=== PATIENT | female | born 1940 | race Caucasian/White ===

== ENCOUNTER → 2018-05-17 14:26 | Outpatient (CLI) | payer MEDICARE, SELFPAY ==
--- NOTE | 2018-05-17 14:38 | VDLE_ITS ---
Reason For Study: LLE edema RIGHT LEFT CFV is compressible, spontaneous, phasic, GSV is normal. competent and demonstrates normal CFV is compressible, spontaneous, phasic, augmentation. competent, and demonstrates normal Procedure augmentation. Exam performed in department. FV is compressible, spontaneous, phasic, The exam was diagnostic. competent and demonstrates normal The study was technically difficult. augmentation. Unable to position LLE optimally due to hip POP V is compressible, spontaneous, phasic, surgery. competent and demonstrates normal A preliminary report was called and/or faxed augmentation. to DR. Mariaa Kidd @ [phone] @ 3:05 T/P Trunk is compressible. pm. PTV is compressible. LT PerV is compressible. Interpretation Summary Deep veins of the left lower extremity are patent and compressible segmentally. There is no evidence of left lower extremity deep vein thrombosis. Valvular competence appears intact within the proximal deep venous system on the left . The left greater saphenous vein appears patent and compressible segmentally. Ordering Physician: Mariaa Kidd Referring Physician: Mariaa Kidd Performed By: Pricila Cardenas, RDNEHA, RVT
== END ==
DX: R60.0 Localized edema (principal); E78.5 Hyperlipidemia, unspecified; M81.0 Age-related osteoporosis without current pathological fracture; D64.9 Anemia, unspecified; R41.3 Other amnesia
CPT/HCPCS: 93971

== ENCOUNTER → 2018-05-25 | Outpatient (CLI) | payer MEDICARE, SELFPAY ==
[2018-05-25 09:34] LABS: Absolute Lymphocyte Count 1.05 X10^3/ul (0.83-4.51); Absolute Neutrophil Count 3.1 X10^3/uL (2.0-7.7); Basophil# 0.07 X10^3/uL; Basophil% 1.4 % (0-1); Eosinophil# 0.18 X10^3/uL; Eosinophils% 3.7 % (0-5); Hematocrit 36.4 % (37-47); Lymphocyte # 1.05 X10^3/ul (4.0); Lymphocyte % 21.6 % (19-41); Mean Corp Hgb Conc 30.2 g/gl (32-36); Mean Corpuscular Volume 92.6 fL (81-99); Mean Platelet Vol. 8.4 fl (6.2-12.0); Monocyte# 0.43 X10^3/uL; Monocyte% 8.8 % (0-10); Neutrophil # 3.13 X10^3/uL (2.7-7.7); Neutrophil % 64.5 % (47-70); Platelet Count 354 K/mm3 (150-450); RBC Distribution Width CV 18.7 % (11.6-14.6); RBC Distribution Width SD 63.5 fl (35.1-43.9); Red Blood Count 3.93 M/mm3 (4.2-5.4); White Blood Count 4.9 K/mm3 (4.4-11.0)
[2018-05-25 09:35] LABS: POSITIVE COUNT NO; POSITIVE DIFFERENTIAL NO; POSITIVE MORPHOLOGY NO
[2018-05-25 10:31] LABS: ALB/GLOB Ratio 0.9 RATIO (0.9-2.4); AST(SGOT) 18 U/L (15-37); Alanine Aminotransfer ALT/SGPT 20 U/L (13-56); Albumin, Serum 3.4 g/dL (3.2-5.0); Alkaline Phosphatase 141 U/L (45-117); Anion Gap 7 (5-15); BUN 8 mg/dL (7-18); BUN/Creat Ratio 12.9 RATIO (10-20); Calcium,Total 8.5 mg/dL (8.5-10.1); Chloride 105 mmol/L (98-107); Cholesterol 117 mg/dL (200); Creatinine, Serum 0.62 mg/dL (0.55-1.02); EST Glomerular Filtration Rate 100 mL/min (>60); Est Glom Filt Rate - Afr Amer 120 mL/min (>60); Globulin 3.6 g/dL (2.2-4.2); Glucose 85 mg/dL (74-106); High Density Lipoprotein 78 mg/dL; Potassium 3.3 mmol/L (3.5-5.1); Sodium Level 142 mmol/L (136-145); Thyroid Stim Hormone (TSH) 0.93 uIU/mL (0.358-3.74); Triglycerides 78 mg/dL; Very Low Density Lipoprotein 16 mg/dL (5-40)
[2018-05-27 09:43] LABS: Vitamin B12 418 pg/mL (211-911); Vitamin D,25 Hydroxy 28.2 ng/mL (29.95-100.01)
== END | disposition home or self-care (01) ==
LOC: LAB 09:08
DX: E78.5 Hyperlipidemia, unspecified (principal); D64.9 Anemia, unspecified; R41.3 Other amnesia; M81.0 Age-related osteoporosis without current pathological fracture
CPT/HCPCS: 36415; 80053; 80061; 82306; 82607; 82746; 84443; 85025

== ENCOUNTER → 2018-06-06 16:54 | Outpatient (CLI) | payer MEDICARE, SELFPAY | PROVIDERS: Family Provider Family Medicine; PCP Family Medicine; Visit Provider Urology | DX: R82.99 Other abnormal findings in urine (principal) | CPT/HCPCS: 87077; 87086; 87088; 87186 ==

== ENCOUNTER → 2018-08-26 17:01 | Outpatient (CLI) | payer MEDICARE, MEDICAID, SELFPAY ==
[2018-08-26 18:07] LABS: Anion Gap 6 (5-15); BUN 19 mg/dL (7-18); BUN/Creat Ratio 26.6 RATIO (10-20); Chloride 100 mmol/L (98-107); Creatinine, Serum 0.71 mg/dL (0.55-1.02); EST Glomerular Filtration Rate 85 mL/min (>60); Est Glom Filt Rate - Afr Amer 102 mL/min (>60); Glucose 83 mg/dL (74-106); Potassium 3.7 mmol/L (3.5-5.1); Sodium Level 136 mmol/L (136-145)
== END ==
PROVIDERS: Family Provider Family Medicine
DX: I25.10 Atherosclerotic heart disease of native coronary artery without angina pectoris (principal); E78.49 Other hyperlipidemia; I10 Essential (primary) hypertension
CPT/HCPCS: 36415; 80048

== ENCOUNTER → 2020-01-16 15:48 | Outpatient (CLI) | payer OTHER, SELFPAY ==
--- NOTE | 2020-01-16 15:55 | RAD_ITS ---
STUDY: X-RAY - ABDOMEN/PELVIS REASON FOR EXAM: Female, 79 years old. Abdominal pain and distention TECHNIQUE: 3P films COMPARISON: None. FINDINGS: Normal visualized lung bases. There is an unremarkable bowel gas pattern. There is no demonstrated free abdominal air. The visualized liver, spleen and kidneys are grossly normal in size and morphology. There are calcifications of uncertain significance projecting over the right and left sacrum Levoscoliosis. RAD/Abd Inc Decub and/or Erect IMPRESSION: No acute findings Electronically Signed: Santy Barnes MD at 11:25 EST , Service support ,
== END ==
LOC: MTLAB 15:54 → MTRAD 16:23
PROVIDERS: Referring Provider Internal Medicine Gastroenterology; Visit Provider Internal Medicine Gastroenterology
DX: K59.00 Constipation, unspecified (principal); R19.7 Diarrhea, unspecified
CPT/HCPCS: 74019

== ENCOUNTER → 2023-03-14 | Outpatient (REF) | payer OTHER, SELFPAY ==
[2023-03-14 08:22] LABS: Vitamin B12 224 pg/mL (211-911); Vitamin D,25 Hydroxy 42.9 ng/mL
[2023-03-14 08:27] LABS: Anion Gap 2 (5-15); BUN 16 mg/dL (7-18); BUN/Creat Ratio 23.9 RATIO (10-20); Calcium,Total 9.2 mg/dL (8.5-10.1); Chloride 107 mmol/L (98-107); Cholesterol 120 mg/dL (200); Creatinine, Serum 0.67 mg/dL (0.55-1.02); EST Glomerular Filtration Rate 90 mL/min (>60); Est Glom Filt Rate - Afr Amer 109 mL/min (>60); Glucose 87 mg/dL (74-106); High Density Lipoprotein 63 mg/dL; Potassium 3.5 mmol/L (3.5-5.1); Sodium Level 139 mmol/L (136-145); Thyroid Stim Hormone (TSH) 1.29 uIU/mL (0.358-3.74); Triglycerides 96 mg/dL; Very Low Density Lipoprotein 19 mg/dL (5-40)
[2023-03-14 10:29] LABS: Absolute Lymphocyte Count 1.56 X10^3/uL (0.83-4.51); Absolute Neutrophil Count 5.2 X10^3/uL (2.0-7.7); Basophil# 0.05 X10^3/uL; Basophil% 0.6 % (0-1); Eosinophil# 0.28 X10^3/uL; Eosinophils% 3.6 % (0-5); Hematocrit 39.9 % (37-47); Hemoglobin 12.5 g/dL (12.0-15.0); Lymphocyte # 1.56 X10^3/ul (0.83-4.51); Lymphocyte % 19.9 % (19-41); Mean Corp Hgb Conc 31.3 g/dL (32-36); Mean Corpuscular Hgb 29.3 pg (27.0-32.0); Mean Corpuscular Volume 93.7 fL (81-99); Mean Platelet Vol. 9.8 fl (6.2-12.0); Monocyte# 0.73 X10^3/uL; Monocyte% 9.3 % (0-10); NRBC Flagged by Analyzer 0 % (0-5); Neutrophil % 66.2 % (47-70); Platelet Count 237 K/mm3 (150-450); RBC Distribution Width CV 13.7 % (11.6-14.6); Red Blood Count 4.26 M/mm3 (4.2-5.4); White Blood Count 7.9 K/mm3 (4.4-11.0)
== END ==
LOC: OLS.SWAL 05:00
PROVIDERS: Visit Provider Internal Medicine
DX: E55.9 Vitamin D deficiency, unspecified (principal); E78.5 Hyperlipidemia, unspecified; I10 Essential (primary) hypertension; F32.A Depression, unspecified
CPT/HCPCS: 36415; 80048; 80061; 82306; 82607; 84443; 85025

== ENCOUNTER → 2023-03-19 | Outpatient (REF) | payer OTHER, SELFPAY ==
[2023-03-19 09:54] LABS: BNP,B-Type NATRIURETIC PEPTIDE 192.7 pg/mL (0-100)
== END ==
LOC: OLS.SWAL 04:00
PROVIDERS: Referring Provider Internal Medicine; Visit Provider Internal Medicine
DX: I10 Essential (primary) hypertension (principal); E78.5 Hyperlipidemia, unspecified
CPT/HCPCS: 36415; 83880

== ENCOUNTER → 2023-10-08 | Outpatient (REF) | payer OTHER, SELFPAY ==
[2023-10-08 08:16] LABS: Absolute Lymphocyte Count 1.87 X10^3/uL (0.83-4.51); Absolute Neutrophil Count 3.8 X10^3/uL (2.0-7.7); Basophil% 1.4 % (0-1); Eosinophil# 0.35 X10^3/uL; Hematocrit 38.1 % (37-47); Hemoglobin 11.7 g/dL (12.0-15.0); Lymphocyte # 1.87 X10^3/ul (0.83-4.51); Lymphocyte % 26.9 % (19-41); Mean Corp Hgb Conc 30.7 g/dL (32-36); Mean Corpuscular Volume 91.1 fL (81-99); Mean Platelet Vol. 9.6 fl (6.2-12.0); Monocyte# 0.76 X10^3/uL; Monocyte% 10.9 % (0-10); NRBC Flagged by Analyzer 0 % (0-5); Neutrophil # 3.83 X10^3/uL (2.7-7.7); Neutrophil % 55.2 % (47-70); Platelet Count 245 K/mm3 (150-450); RBC Distribution Width CV 14.4 % (11.6-14.6); RBC Distribution Width SD 48.3 fl (35.1-43.9); Red Blood Count 4.18 M/mm3 (4.2-5.4)
[2023-10-08 08:52] LABS: AST(SGOT) 15 U/L (15-37); Alanine Aminotransfer ALT/SGPT 19 U/L (13-56); Albumin, Serum 2.9 g/dL (3.2-5.0); Alkaline Phosphatase 93 U/L (45-117); Anion Gap 8 (5-15); BUN 15 mg/dL (7-18); BUN/Creat Ratio 23.5 RATIO (10-20); Calcium,Total 8.7 mg/dL (8.5-10.1); Chloride 104 mmol/L (98-107); Cholesterol 118 mg/dL (200); Creatinine, Serum 0.64 mg/dL (0.55-1.02); EST Glomerular Filtration Rate 95 mL/min (>60); Est Glom Filt Rate - Afr Amer 115 mL/min (>60); Glucose 89 mg/dL (74-106); High Density Lipoprotein 67 mg/dL; Potassium 3.4 mmol/L (3.5-5.1); Protein, Total 5.9 g/dL (6.4-8.2); Sodium Level 141 mmol/L (136-145); Thyroid Stim Hormone (TSH) 0.85 uIU/mL (0.358-3.74); Triglycerides 58 mg/dL; Very Low Density Lipoprotein 12 mg/dL (5-40); Vitamin D,25 Hydroxy 39.2 ng/mL
== END ==
LOC: OLS.SWAL 04:00
PROVIDERS: Visit Provider Internal Medicine
DX: I10 Essential (primary) hypertension (principal); R60.9 Edema, unspecified
CPT/HCPCS: 36415; 80053; 80061; 82306; 83735; 84443; 85025

== ENCOUNTER → 2023-10-25 | Outpatient (REF) | payer MEDICARE, MEDICAID, SELFPAY ==
[2023-10-25 08:42] LABS: Anion Gap 5 (5-15); BUN 15 mg/dL (7-18); BUN/Creat Ratio 23.9 RATIO (10-20); Calcium,Total 8.5 mg/dL (8.5-10.1); Chloride 107 mmol/L (98-107); Creatinine, Serum 0.63 mg/dL (0.55-1.02); EST Glomerular Filtration Rate 97 mL/min (>60); Est Glom Filt Rate - Afr Amer 117 mL/min (>60); Glucose 88 mg/dL (74-106); Magnesium 2.1 mg/dL (1.6-2.6); Potassium 3.7 mmol/L (3.5-5.1); Sodium Level 142 mmol/L (136-145)
== END ==
LOC: OLS.SWAL 05:00
PROVIDERS: Visit Provider Internal Medicine
DX: I10 Essential (primary) hypertension (principal)
CPT/HCPCS: 36415; 80048; 83735

== ENCOUNTER → 2023-11-08 | Outpatient (REF) | payer MEDICARE, MEDICAID, SELFPAY ==
[2023-11-08 08:41] LABS: Absolute Lymphocyte Count 2.09 X10^3/uL (0.83-4.51); Absolute Neutrophil Count 4.8 X10^3/uL (2.0-7.7); Basophil# 0.11 X10^3/uL; Basophil% 1.4 % (0-1); Eosinophil# 0.39 X10^3/uL; Eosinophils% 4.8 % (0-5); Hematocrit 42.4 % (37-47); Hemoglobin 13.3 g/dL (12.0-15.0); Lymphocyte # 2.09 X10^3/ul (0.83-4.51); Lymphocyte % 25.7 % (19-41); Mean Corp Hgb Conc 31.4 g/dL (32-36); Mean Corpuscular Hgb 28.7 pg (27.0-32.0); Mean Corpuscular Volume 91.4 fL (81-99); Mean Platelet Vol. 9.5 fl (6.2-12.0); Monocyte# 0.75 X10^3/uL; Monocyte% 9.2 % (0-10); NRBC Flagged by Analyzer 0 % (0-5); Neutrophil # 4.75 X10^3/uL (2.7-7.7); Neutrophil % 58.4 % (47-70); Platelet Count 291 K/mm3 (150-450); RBC Distribution Width CV 14.6 % (11.6-14.6); RBC Distribution Width SD 48.9 fl (35.1-43.9); Red Blood Count 4.64 M/mm3 (4.2-5.4); White Blood Count 8.1 K/mm3 (4.4-11.0)
[2023-11-08 08:58] LABS: Anion Gap 7 (5-15); BUN 16 mg/dL (7-18); BUN/Creat Ratio 22.3 RATIO (10-20); Calcium,Total 9.4 mg/dL (8.5-10.1); Chloride 104 mmol/L (98-107); Creatinine, Serum 0.72 mg/dL (0.55-1.02); EST Glomerular Filtration Rate 83 mL/min (>60); Est Glom Filt Rate - Afr Amer 101 mL/min (>60); Glucose 91 mg/dL (74-106); Potassium 3.7 mmol/L (3.5-5.1); Sodium Level 140 mmol/L (136-145)
== END ==
LOC: OLS.SWAL 05:00
PROVIDERS: Visit Provider Internal Medicine
DX: I10 Essential (primary) hypertension (principal); I25.10 Atherosclerotic heart disease of native coronary artery without angina pectoris
CPT/HCPCS: 36415; 80048; 85025

== ENCOUNTER 2024-01-12 12:06 | Inpatient (IN) | payer MEDICARE, MEDICAID, SELFPAY ==
[2024-01-12 12:07] VITALS: BP 141/77; PULSE 77; RESP 16; TEMP 36.4; O2SAT 92; BMI 25.0
--- NOTE | 2024-01-12 12:36 | RAD_ITS ---
HISTORY: dyspnea. TECHNIQUE: XR Chest 1 View. COMPARISON: None. FINDINGS: CARDIOMEDIASTINAL BORDERS: Cardiac silhouette within normal limits in size. Mediastinal contour unremarkable with calcification of the aortic knob. LUNGS: 8 mm nodular opacity in the right midlung. Mild linear scarring in the right lung base. PLEURA: No pleural effusion or pneumothorax seen. OSSEOUS STRUCTURES: Old right fifth, seventh, and eighth rib fractures. RAD/Chest 1 View (Portable) IMPRESSION: Possible pulmonary nodule in the right midlung; recommend follow-up or CT. Electronically Signed: Erica Acevedo MD at 13:17 EST ,
--- NOTE | 2024-01-12 12:36 | RAD_ITS ---
HISTORY: pain. TECHNIQUE: XR Spine Lumbar 2 or 3 Views. COMPARISON: Abdomen 01/16/2020. FINDINGS: VERTEBRAE: Vertebral body heights preserved. Degenerative changes the posterior elements. Chronic bone island of the left sacrum. Left hip arthroplasty. ALIGNMENT: No significant anterior or posterior subluxation. Mild scoliosis INTERVERTEBRAL DISCS: Degenerative endplate changes with intervertebral disc space narrowing at multiple levels. SOFT TISSUES: Small calcifications in the right abdomen again seen. RAD/Lumbar Spine 2 or 3 Views IMPRESSION: No acute fracture or dislocation identified in the lumbar spine. Multilevel degenerative change. Mild scoliosis. Electronically Signed: Erica Acevedo MD at 14:14 EST ,
--- NOTE | 2024-01-12 12:36 | RAD_ITS ---
HISTORY: pain. TECHNIQUE: XR Hips Bilateral with Pelvis when performed; 2 Views. COMPARISON: None. FINDINGS: OSSEOUS STRUCTURES: Nondisplaced fracture of the right pubic bone. Note that overlapping bowel shadows may obscure osseous detail. Small sclerotic focus in the left sacrum, likely bone island. Heterotopic ossification at the left hip arthroplasty. JOINT SPACES: No dislocation. Mild degenerative change of the right hip. Left hip arthroplasty in place. RAD/Hips B/L min 2 views w/ Pelvis IMPRESSION: Nondisplaced fracture of the right pubic bone. Electronically Signed: Erica Acevedo MD at 13:19 EST ,
--- NOTE | 2024-01-12 12:48 | EX.ED.DYSGE1 ---
HPI <LUZ Rebolledo - Last Filed: 01/12/24 15:50> History of Present Illness Chief Complaint: Lower Extremity Injury Narrative Narrative: 83-year-old female with PMH of HTN, HLD, COPD and remote smoker presents after a fall at her assisted living facility. She tripped and fell last night while walking in the living room and landed on her buttocks and back. No head injury or LOC. She was able to get up and slipped on the carpet all night. A nurse came in around 6:30 AM this morning and helped her into bed. Her daughter was notified and arrived around 10:30 AM and the patient was wearing her 3 L O2 she wears with sleep. However she was unable to stand and ambulate due to back and hip pain so she called EMS. She is not on blood thinners. She denies fever or recent illness. PFSH <LUZ Rebolledo - Last Filed: 01/12/24 15:50> [facility] Medical History (Updated 01/12/24 @ 13:[address] Jelani Miranda MD) COPD (chronic obstructive pulmonary disease) Depression HTN (hypertension) Hyperlipemia Osteoarthritis Home Medications alendronate 70 mg tablet mg PO 01/12/24 [History Last Taken Unknown] aspirin 81 mg chewable tablet 01/12/24 [History Last Taken 01/12/24] atorvastatin 20 mg tablet mg 01/12/24 [History Last Taken 01/11/24] calcium carbonate 500 mg-vitamin D3 15 mcg (600 unit) tablet tab PO 01/12/24 [History Last Taken 01/12/24] clonidine HCl 0.1 mg tablet 0.1 mg PO BID 01/12/24 [History Last Taken Unknown] donepezil 10 mg tablet mg 01/12/24 [History Last Taken 01/11/24] fluticasone fur. 100 mcg-umeclid 62.5 mcg-vilant 25 mcg inhalat.powder (Trelegy Ellipta) 1 inh inhalation DAILY 01/12/24 [History Last Taken Unknown] fluticasone furoate 100 mcg-vilanterol 25 mcg/dose inhalation powder (Breo Ellipta) inhalation 01/12/24 [History Last Taken Unknown] lisinopril 40 mg tablet mg 01/12/24 [History Last Taken 01/12/24] montelukast 10 mg tablet mg 01/12/24 [History Last Taken 01/12/24] oxybutynin chloride 10 mg tablet,extended release 24 hr mg PO 01/12/24 [History Last Taken 01/11/24] potassium chloride 20 mEq tablet,extended release meq PO 01/12/24 [History Last Taken Unknown] primidone 50 mg tablet 50 mg PO DAILY 01/12/24 [History Last Taken Unknown] propranolol 80 mg capsule,24 hr,extended release mg PO 01/12/24 [History Last Taken Unknown] torsemide 20 mg tablet 20 mg PO DAILY 01/12/24 [History Last Taken Unknown] venlafaxine 150 mg capsule,extended release 24 hr mg PO 01/12/24 [History Last Taken Unknown] Allergy/AdvReac Type Severity Reaction Status Date / Time Penicillins Allergy Unknown NEEDS Verified 01/12/24 12:15 FOLLOW-UP Social History Smoking Status: Never smoker ROS <LUZ Rebolledo - Last Filed: 01/12/24 15:50> ROS ED ROS Narrative Constitutional: Negative for fever, chills, malaise. CVS: Negative for chest pain. Respiratory: Negative for shortness of breath, cough. GI: Negative for abdominal pain, nausea, vomiting, melena, hematochezia. : Negative for dysuria. Neuro: Negative for headache. EXAM <LUZ Rebolledo - Last Filed: 01/12/24 15:50> Physical Exam Narrative Exam Narrative: CONST: Patient sitting in no acute distress. EYES: Normal inspection. PERRL, EOMI. ENT: Head normocephalic atraumatic, no raccoon eyes or johnson sign, no hemotympanum, no nasal septal hematoma, no CSF otorrhea or rhinorrhea. NECK: Normal inspection. RESP: No respiratory distress, CTAB. Chest wall nontender. CVS: Regular rate and rhythm, no murmur, no gallop. ABD: Soft and nontender, no guarding or rebound, nondistended. Back: Normal inspection, no cervical or thoracic tenderness, tender over lower lumbar without step-offs or crepitus. SKIN: Color normal, no rash, warm, dry, intact. EXTREMITIES: Normal appearance, full ROM upper extremities, no tenderness, 2+ radial pulses. BLLE symmetric, no shortening or rotation, patient will not hip flex bilaterally due to pain but has full passive range of motion without pain, 5/5 DF/PF strength, normal sensation, 2+ DP pulses. Pelvis stable. NEURO: Alert to self, place, age, states year is 2022 but I do not keep up. PSYCH: Normal affect. Const Vital Signs: 01/12/24 12:07 01/12/24 15:32 Temperature 97.5 F L 98.2 F Temperature Source Temporal Pulse Rate 77 73 Respiratory Rate 16 12 Blood Pressure 141/77 H 106/70 Blood Pressure Mean 98 82 Pulse Ox 92 97 Oxygen Delivery Method Room Air <Dr. Jelani Miranda MD - Last Filed: 01/12/24 13:47> Physical Exam Const Vital Signs: 01/12/24 12:07 01/12/24 15:32 Temperature 97.5 F L 98.2 F Temperature Source Temporal Pulse Rate 77 73 Respiratory Rate 16 12 Blood Pressure 141/77 H 106/70 Blood Pressure Mean 98 82 Pulse Ox 92 97 Oxygen Delivery Method Room Air MDM <LUZ Rebolledo - Last Filed: 01/12/24 15:50> [facility] Narrative Medical decision making narrative: History gathered from: Patient and daughter Differential: Contusion, hip or pelvic fracture Patient had mechanical fall overnight and could not get up at her assisted living facility. Today she cannot ambulate. She has no external signs of injury. She states she will not flex in either hip due to pain but has no shortening or rotation. Full passive ROM. Distally neurovascularly intact. X-rays show a nondisplaced right pubic rami fracture. Labs show white count of 16.0, hemoglobin 11.1, otherwise unremarkable. Urine is ordered. Patient cannot ambulate secondary to pelvic pain and will need admitted. Case was discussed with the hospitalist. I have personally performed a face to face assessment of the patient and have reviewed the SOPHIA Note. I performed a substantive portion of the visit including all aspects of the following. My yates findings include: History is 83-year-old female fell at assisted living complaining of pain to her right groin. Fell last night and laid on the floor throughout the night. Did not hit her head. Denies other complaints. No recent illness. No vomiting diarrhea or fever. Family is present in the room. Exam is [83-year-old female no acute distress. Vital signs stable afebrile. HEENT exam unremarkable atraumatic. Pupils round reactive light. Normal speech. Neck nontender. Back and spine nontender. No bruising. There are signs of trauma. Lungs clear to auscultation. Heart regular rhythm rate about 75 no murmur. Chest wall and ribs nontender. Abdomen soft nontender. Pelvic girdle intact right groin tenderness. She has no shortening or rotation either hip. Dorsi and plantarflexion intact. She is able to flex and extend both knees and hips. Upper extremities are nontender. Normal clinical documentation developer strength. Neurologically she is awake and alert. Answers questions and follows commands. No focal motor deficits.] Medical Decision Making [83-year-old assisted living fell as a right superior pubic rami/pelvic bone fracture. She is unable to stand due to the discomfort. Will speak to the hospitalist about admission for pain control and/or physical therapy.] Other additions or changes: [None] Lab Data Attestation: I reviewed the patient's lab results. Labs: Laboratory Results - last 24 hr 01/12/24 12:49 WBC 16.0 H RBC 3.89 L Hgb 11.1 L Hct 35.4 L MCV 91.0 MCH 28.5 MCHC 31.4 L RDW Std Deviation 49.2 H RDW Coeff of Laura 14.7 H Plt Count 166 MPV 9.7 Immature Gran % (Auto) 0.800 Neut % (Auto) 87.3 H Lymph % (Auto) 6.6 L Dewitt % (Auto) 4.7 Eos % (Auto) 0.2 Baso % (Auto) 0.4 Absolute Neuts (auto) 14.0 H Absolute Lymphs (auto) 1.05 Nucleated RBC % 0 Sodium 142 Potassium 4.3 Chloride 106 Carbon Dioxide 32.0 Anion Gap 4 L BUN 22 H Creatinine 1.05 H Estim Creat Clear Calc 39.28 Est GFR (MDRD) Af Amer 65 Est GFR (MDRD) Non-Af 53 L BUN/Creatinine Ratio 21.0 H Glucose 136 H Calcium 9.4 Radiography Diagnostic Testing: Clinical Impression(s) from Imaging Studies Chest X-Ray 01/12/24 12:36 IMPRESSION: Possible pulmonary nodule in the right midlung; recommend follow-up or CT. Electronically Signed: Erica Acevedo MD at 13:17 EST , Hip/Pelvis X-Ray 01/12/24 12:36 IMPRESSION: Nondisplaced fracture of the right pubic bone. Electronically Signed: Erica Acevedo MD at 13:19 EST , Lumbar Spine X-Ray 01/12/24 12:36 IMPRESSION: No acute fracture or dislocation identified in the lumbar spine. Multilevel degenerative change. Mild scoliosis. Electronically Signed: Erica Acevedo MD at 14:14 EST Reading Location ID and State: [facility] / [place] Tel , Service support , <Dr. Jelani Miranda MD - Last Filed: 01/12/24 13:47> MDM MDM Narrative Medical decision making narrative: History gathered from: Patient and daughter Patient had mechanical fall overnight and could not get up at her assisted living facility. Today she cannot ambulate. She has no external signs of injury. She states she will not flex in either hip due to pain but has no shortening or rotation. Full passive ROM. Distally neurovascularly intact. X-rays show a nondisplaced right pubic rami fracture. Labs show white count of 16.0, hemoglobin 11.1, otherwise unremarkable. I have personally performed a face to face assessment of the patient and have reviewed the SOPHIA Note. I performed a substantive portion of the visit including all aspects of the following. My yates findings include: History is 83-year-old female fell at assisted living complaining of pain to her right groin. Fell last night and laid on the floor throughout the night. Did not hit her head. Denies other complaints. No recent illness. No vomiting diarrhea or fever. Family is present in the room. Exam is [83-year-old female no acute distress. Vital signs stable afebrile. HEENT exam unremarkable atraumatic. Pupils round reactive light. Normal speech. Neck nontender. Back and spine nontender. No bruising. There are signs of trauma. Lungs clear to auscultation. Heart regular rhythm rate about 75 no murmur. Chest wall and ribs nontender. Abdomen soft nontender. Pelvic girdle intact right groin tenderness. She has no shortening or rotation either hip. Dorsi and plantarflexion intact. She is able to flex and extend both knees and hips. Upper extremities are nontender. Normal clinical documentation developer strength. Neurologically she is awake and alert. Answers questions and follows commands. No focal motor deficits.] Medical Decision Making [83-year-old assisted living fell as a right superior pubic rami/pelvic bone fracture. She is unable to stand due to the discomfort. Will speak to the hospitalist about admission for pain control and/or physical therapy.] Other additions or changes: [None] History & Record Review Discussion w/independent historian: Patient and Family Additional record(s) reviewed:: Prior inpatient record, Prior outpatient record, Prior ED visit and Prior labs Lab Data Lab results narrative: CBC white count of 16. H&H 11.1 and 35. Platelets 166. Electrolytes show a gap of 4. BUN 22 creatinine of 1. Glucose 136. Labs: Laboratory Results - last 24 hr 01/12/24 12:49 WBC 16.0 H RBC 3.89 L Hgb 11.1 L Hct 35.4 L MCV 91.0 MCH 28.5 MCHC 31.4 L RDW Std Deviation 49.2 H RDW Coeff of Laura 14.7 H Plt Count 166 MPV 9.7 Immature Gran % (Auto) 0.800 Neut % (Auto) 87.3 H Lymph % (Auto) 6.6 L Dewitt % (Auto) 4.7 Eos % (Auto) 0.2 Baso % (Auto) 0.4 Absolute Neuts (auto) 14.0 H Absolute Lymphs (auto) 1.05 Nucleated RBC % 0 Sodium 142 Potassium 4.3 Chloride 106 Carbon Dioxide 32.0 Anion Gap 4 L BUN 22 H Creatinine 1.05 H Estim Creat Clear Calc 39.28 Est GFR (MDRD) Af Amer 65 Est GFR (MDRD) Non-Af 53 L BUN/Creatinine Ratio 21.0 H Glucose 136 H Calcium 9.4 Radiography Chest X-Ray - ED: 1 View, Read by ED Physician, Read by Radiologist, Heart, Lungs, Mediastinum, Bony Structures, No Acute Disease and Chronic Changes Diagnostic Testing: Clinical Impression(s) from Imaging Studies Chest X-Ray 01/12/24 12:36 IMPRESSION: Possible pulmonary nodule in the right midlung; recommend follow-up or CT. Electronically Signed: Erica Acevedo MD at 13:17 EST , Hip/Pelvis X-Ray 01/12/24 12:36 IMPRESSION: Nondisplaced fracture of the right pubic bone. Electronically Signed: Erica Acevedo MD at 13:19 EST , Lumbar Spine X-Ray 01/12/24 12:36 IMPRESSION: No acute fracture or dislocation identified in the lumbar spine. Multilevel degenerative change. Mild scoliosis. Electronically Signed: Erica Acevedo MD at 14:14 EST , Chest x-ray, portable, single view turbulence of radiologist shows no acute abnormality. Normal cardiac silhouette. Normal lung mcdonnell. No rib fractures. Pelvis and hip x-rays 5 views. Interpreted by myself and the radiologist shows a right either superior pubic rami or pubic bone fracture. Otherwise the hips are unremarkable. 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 Discharge Plan Triage Chief Complaint: Lower Extremity Injury ED Midlevel Provider: Michaela Babcock ED Provider: Jelani Miranda Dx/Rx/DC Orders Clinical Impression: Closed fracture of single pubic ramus of pelvis, Inability to walk, Fall Prescriptions: No Action atorvastatin 20 mg tablet Patient Comments: TAKE 1 TABLET BY MOUTH ONCE DAILY donepezil 10 mg tablet Patient Comments: TAKE 1 TABLET BY MOUTH NIGHTLY aspirin 81 mg tablet,chewable Patient Comments: CHEW AND SWALLOW 1 TABLET BY MOUTH ONCE DAILY calcium carbonate-vitamin D3 500 mg-15 mcg (600 unit) tablet PO Patient Comments: TAKE 1 TABLET BY MOUTH TWICE DAILY clonidine HCl 0.1 mg tablet 0.1 mg PO BID oxybutynin chloride 10 mg tablet extended release 24hr PO Patient Comments: TAKE 1 TABLET BY MOUTH EVERY DAY alendronate 70 mg tablet PO Patient Comments: TAKE 1 TABLET NEEDED EVERY SUN {Q1W1} venlafaxine 150 mg capsule,extended release 24hr PO Patient Comments: TAKE 1 CAPSULE BY MOUTH EVERY DAY propranolol 80 mg capsule,extended release 24 hr PO Patient Comments: TAKE 1 CAPSULE BY MOUTH TWICE DAILY HOLD FOR SBP <120 montelukast 10 mg tablet Patient Comments: TAKE 1 TABLET BY MOUTH EVERY DAY lisinopril 40 mg tablet Patient Comments: TAKE 1 TABLET BY MOUTH ONCE DAILY fluticasone furoate-vilanterol [Breo Ellipta] 100-25 mcg/dose blister with device INHALATION Patient Comments: INHALE ONE (1) PUFF BY MOUTH ONCE DAILY potassium chloride 20 mEq tablet extended release PO Patient Comments: TAKE 1 TABLET BY MOUTH ONCE DAILY WITH FOOD torsemide 20 mg tablet 20 mg PO DAILY primidone 50 mg tablet 50 mg PO DAILY Trelegy Ellipta 100-62.5-25 mcg blister with device 1 inh inhalation DAILY Primary Care Provider: Darcy Clifton Referrals: Darcy Clifton MD [Primary Care Provider] -
--- OUTSIDE RECORDS SUMMARY | 2024-01-12 12:57 | XMS RPT_ITS | CCD ---
Author Name Unknown Address [address] [place] [address] Organization [facility] Care Team Providers Care [place] Tender Name Role Phone Garfield Alcaraz Primary Care Provider Candice Dotson Primary Care Provider Garfield Alcaraz DO Primary Care Provider Candice Montes APRN, CNP Primary Care Provider Garfield Alcaraz DO Primary Care Provider KIERAN ALEXANDER, DR MERRILL Primary Care Physician LIVIER JOHNSTON Attending Rhona ALCARAZ DO, DR. MERRILL Primary Care Unavailbrady ALCARAZ DO, DR. MERRILL Attending Viral ALCARAZ DO, DR. MERRILL Primary Care Unavailbrady ALCARAZ DO, DR. MERRILL Attending Viral ALCARAZ DO, DR. MERRILL Primary Care UnavailGarfield Agee DO Primary Care Provider [phone] Garfield Alcaraz DO Primary Care Provider CORBY BARRON Attending Unavailable GARFIELD ALCARAZ Primary Care Unavailable GARFIELD ALCARAZ Primary Care Unavailable ANDRADE, KAYLEEN Referring Unavailable GARFIELD ALCARAZ Primary Care Unavailable ANDRADE, KAYLEEN Referring Unavailable ANDRADE, KAYLEEN Attending Unavailable ANDRADE, KAYLEEN Attending Unavailable GARFIELD ALCARAZ Primary Care Unavailable ADELITA QUEZADA Attending Unavailable GARFIELD ALCARAZ Primary Care Unavailable GARFIELD ALCARAZ Primary Care Unavailable ANRDADE, KAYLEEN Attending Unavailable GARFIELD ALCARAZ Primary Care Unavailable BHUPENDRA LAMAS Attending Unavailable BHUPENDRA LAMAS Attending Unavailable GARFIELD ALCARAZ Primary Care Unavailable OLGA CABELLO Referring Unavailable GARFIELD ALCARAZ Primary Care Unavailable Allergies Allergy Classification Reported Allergen(s) Allergy Type Date of Onset Reaction(s) Facility (16 sources) Cephalexin Drug Allergy 06-13-2018 [facility] Work Phone: (7 sources) Penicillin G Drug Allergy 05-24-2018 [facility] Work Phone: (7 sources) Penicillins Propensity to adverse reactions to drug 04-30-2018 [facility] Work Phone: (2 sources) Penicillin; Translations: [penicillin] Drug Allergy [facility] (9 sources) Penicillins Drug Intolerance 04-30-2018 [facility] Medications Current Medications Medication Drug Class(es) Dates Sig (Normalized) Sig (Original) albuterol MDI (90 mcg/inh) CFC free inhalation aerosol (2 sources) Start: 10-07-2021 take 2 puff(s) by inhalation every four hours as needed for wheezing albuterol MDI (90 mcg/inh) CFC free inhalation aerosol 2 puff(s), Inhalation, q4h, PRN as needed for wheezing, # 18 gram(s), 0 Refill(s), Pharmacy: [id number], Encounter by telehealth for suspected COVID-19, 163, cm, 10/07/21 8:59:00 EST, Height, kg, 10/07/21 8:59:00 EST, Dosing Weight Start Date: 10/07/21 Status: Ordered alendronic acid 70 mg oral tablet (18 sources) Bisphosphonate Start: 09-21-2022 Fosamax 70 mg oral tablet Dose : 70 mg = 1 tab(s), Oral, qWeek, # 13 tab(s), 3 Refill(s), Pharmacy: [facility], 161.5, cm, 05/26/22 7:57:00 EDT, Height, kg, 09/07/22 15:09:00 EDT, Dosing Weight Start Date: 09/21/22 Status: Ordered amLODIPine 5 mg oral tablet (2 sources) Dihydropyridine Calcium Channel Brandon take 1 tablet by mouth once daily amLODIPine (Norvasc) 5 MG tablet Take 5 mg by mouth daily. 0 Active aspirin 81 mg chewable tablet (18 sources) Platelet Aggregation Inhibitor, Nonsteroidal Anti-inflammatory Drug Start: 08-29-2022 take 1 tablet by mouth once daily aspirin 81 mg oral tablet, chewable Dose : 81 mg =, Oral, qDay, # 90 tab(s), 3 Refill(s), Pharmacy: [facility], 161.5, cm, 05/26/22 7:57:00 EDT, Height, kg, 05/26/22 7:57:00 EDT, Dosing Weight Start Date: 08/29/22 Status: Ordered Completed/Discontinued Medications Medication Drug Class(es) Dates Sig (Normalized) Sig (Original) fluconazole 150 mg oral tablet (2 sources) Azole Antifungal Start: 11-24-2022 End: 11-24-2022 Diflucan 150 mg oral tablet Dose : 150 mg = 1 tab(s), Oral, qDay, # 1 tab(s), 0 Refill(s), Pharmacy: [facility] #[id number], 161.5, cm, 11/24/22 14:22:00 EST, Height, 56.6 Start Date: 11/24/22 Stop Date: 11/24/22 Status: Ordered iopamidol (ISOVUE-370) 76 % injection 150 mL (1 source) Start: 11-21-2020 End: 11-21-2020 iopamidol (ISOVUE-370) 76 % injection 150 mL 50 ml sodium chloride 9 mg/ml injection (1 source) Start: 11-21-2020 End: 11-21-2020 0.9 % sodium chloride bolus Problems Active Problems Problem Classification Problem Date Documented Da te Episodic/Chronic Chronic obstructive pulmonary disease and bronchiectasis (14 sources) Chronic obstructive lung disease; Translations: [Chronic obstructive pulmonary disease, unspecified] Onset: 12-31-2020 12-31-2020 Chronic Coronary atherosclerosis and other heart disease (20 sources) Coronary arteriosclerosis; Translations: [Atherosclerotic heart disease of [place] coronary artery without angina pectoris] Onset: 12-31-2020 07-05-2018 Chronic Delirium, dementia, and amnestic and other cognitive disorders (2 sources) Alzheimer's disease with late onset; Translations: [Alzheimer's disease with late onset (HCC)] Onset: 07-13-2023 Chronic Diseases of white blood cells (2 sources) Elevated white blood cell count, unspecified; Translations: [Elevated white blood cell count, unspecified] Onset: 12-04-2022 Chronic Disorders of lipid metabolism (18 sources) Hyperlipidemia; Translations: [Hyperlipidemia, unspecified] Onset: 07-05-2018 07-05-2018 Chronic Essential hypertension (20 sources) Hypertensive disorder; Translations: [Essential (primary) hypertension] Onset: 07-05-2018 07-05-2018 Chronic Heart valve disorders (11 sources) Aortic valve sclerosis; Translations: [Other nonrheumatic aortic valve disorders] Onset: 10-03-2022 10-03-2022 Chronic Mood disorders (18 sources) Reactive depression (situational); Translations: [Major depressive disorder, single episode, unspecified] Onset: 05-01-2018 05-01-2018 Chronic Osteoarthritis (2 sources) Osteoarthritis of knee 05-26-2022 Chronic Osteoporosis (11 sources) Osteoporosis; Translations: [Age-related osteoporosis without current pathological fracture] Onset: 09-08-2022 05-27-2021 Chronic Other connective tissue disease (2 sources) Recurrent falls 05-19-2022 Episodic Other fractures (1 source) Closed fracture of single right rib; Translations: [Fracture of one rib, right side, initial encounter for closed fracture] Episodic Other fractures (2 sources) Fracture of rib 05-26-2022 Episodic Other hereditary and degenerative nervous system conditions (16 sources) Essential tremor; Translations: [Essential tremor] Onset: 07-05-2018 07-05-2018 Chronic Other injuries and conditions due to external causes (1 source) Closed injury of head; Translations: [Unspecified injury of head, initial encounter] Episodic Residual codes; unclassified (4 sources) Edema; Translations: [Edema, unspecified] 11-13-2023 Episodic Residual codes; unclassified (2 sources) Edema, unspecified; Translations: [Edema, unspecified] Onset: 12-13-2023 Episodic Unclassified (10 sources) Patient encounter status; Translations: [Palliative care encounter] Onset: 05-01-2018 05-01-2018 Unclassified (2 sources) Non-smoker 05-26-2022 Unclassified (1 source) Dementia in other diseases classified elsewhere, mild, without behavioral disturbance, psychotic disturbance, mood disturbance, and anxiety (HCC); Translations: [Dementia in other diseases classified elsewhere, mild, without behavioral disturbance, psychotic disturbance, mood disturbance, and anxiety (HCC)] Onset: 07-13-2023 Past or Other Problems Problem Classification Problem Date Documented Da te Episodic/Chronic Acute posthemorrhagic anemia (16 sources) Acute posthemorrhagic anemia; Translations: [Acute posthemorrhagic anemia] Onset: 05-04-2018 05-04-2018 Episodic Administrative/social admission (20 sources) Patient encounter status; Translations: [Other specified counseling] Onset: 05-01-2018 05-01-2018 Episodic Cardiac dysrhythmias (7 sources) Atrial fibrillation; Translations: [Atrial paroxysmal tachycardia] Resolved: 12-31-2020 07-05-2018 Chronic Cardiac dysrhythmias (13 sources) Palpitations; Translations: [Palpitations] Onset: 12-31-2020 12-31-2020 Episodic Complications of surgical procedures or medical care (2 sources) Atrial fibrillation; Translations: [Other postprocedural complications and disorders of the circulatory system, not elsewhere classified] Resolved: 12-31-2020 12-31-2020 Episodic Coronary atherosclerosis and other heart disease (4 sources) History of placement of stent for coronary artery disease; Translations: [S/P drug eluting coronary stent placement] Onset: 07-05-2018 07-05-2018 Episodic Deficiency and other anemia (16 sources) Anemia; Translations: [Anemia, unspecified] Onset: 07-05-2018 07-05-2018 Episodic E Codes: Fall (6 sources) Fall; Translations: [Unspecified fall, initial encounter] Onset: 03-06-2023 Resolved: 05-31-2018 Episodic E Codes: Fall (5 sources) Fall; Translations: [Fall] Resolved: 05-31-2018 05-31-2018 Fracture of lower limb (3 sources) Closed fracture proximal phalanx, toe ; Translations: [Nondisplaced fracture of proximal phalanx of left lesser toe(s), initial encounter for closed fracture] Onset: 03-06-2023 Episodic Fracture of neck of femur (hip) (20 sources) Fracture of neck of femur; Translations: [Closed fracture of hip] Onset: 05-01-2018 05-01-2018 Episodic Heart valve disorders (12 sources) Systolic murmur; Translations: [Cardiac murmur, unspecified] Onset: 12-31-2020 12-31-2020 Episodic Nonspecific chest pain (2 sources) Other chest pain; Translations: [Other chest pain] Onset: 01-16-2023 Episodic Other gastrointestinal disorders (16 sources) Constipation; Translations: [Other constipation] Onset: 05-01-2018 05-01-2018 Episodic Other injuries and conditions due to external causes (16 sources) Traumatic injury; Translations: [Injury, unspecified, initial encounter] Onset: 05-01-2018 05-01-2018 Episodic Other nervous system disorders (16 sources) Abnormal gait; Translations: [Unspecified abnormalities of gait and mobility] Onset: 05-01-2018 05-01-2018 Episodic Other nervous system disorders (16 sources) Impaired cognition; Translations: [Other symptoms and signs involving cognitive functions and awareness] Onset: 05-01-2018 05-01-2018 Episodic Other nutritional; endocrine; and metabolic disorders (16 sources) Underweight; Translations: [Underweight] Onset: 07-05-2018 07-05-2018 Episodic Other skin disorders (2 sources) Rash and other nonspecific skin eruption; Translations: [Rash and other nonspecific skin eruption] Onset: 07-13-2023 Episodic Residual codes; unclassified (11 sources) Memory impairment; Translations: [Other amnesia] Onset: 10-03-2022 05-27-2021 Episodic Unclassified (1 source) Dementia in other diseases classified elsewhere, mild, without behavioral disturbance, psychotic disturbance, mood disturbance, and anxiety (HCC); Translations: [Dementia in other diseases classified elsewhere, mild, without behavioral disturbance, psychotic disturbance, mood disturbance, and anxiety (HCC)] Onset: 07-13-2023 Results Test Name Value Interpretation Reference Range Facil ity Vital Signs Date Time Vital Sign Value Performing Clinician Faci lity 12-13-2023 14:51-0500 Body height 160 cm [facility] Work Phone: [facility] 12-13-2023 14:51-0500 Body mass index (BMI) [Ratio] 24.52 kg/m2 [facility] Work Phone: [facility] 12-13-2023 14:51-0500 Body weight 62.78 kg Kayleen Prakash PA-C Work Phone: [facility] 11-23-2023 15:15-0500 Body height 160 cm Bhupendra Lamas MD Work Phone: [facility] 11-23-2023 15:15-0500 Body mass index (BMI) [Ratio] 24.52 kg/m2 Bhupendra Lamas MD Work Phone: [facility] 11-23-2023 15:15-0500 Body weight 62.78 kg Bhupendra Lamas MD Work Phone: [facility] 11-23-2023 15:15-0500 Diastolic blood pressure 80 mm[Hg] Bhupendra Lamas MD Work Phone: [facility] 11-23-2023 15:15-0500 Heart rate 68 /min Bhupendra Lamas MD Work Phone: [facility] 11-23-2023 15:15-0500 Respiratory rate 16 /min Bhupendra Lamas MD Work Phone: [facility] 11-23-2023 15:15-0500 SaO2% (BldA) [Mass fraction] 96 % Bhupendra Lamas MD Work Phone: [facility] 11-23-2023 15:15-0500 Systolic blood pressure 150 mm[Hg] Bhupendra Lamas MD Work Phone: [facility] 03-06-2023 11:24-0400 Body temperature 96.6 [degF] Corby Mudrakola DO Work Phone: [facility] 03-06-2023 11:24-0400 Diastolic blood pressure 87 mm[Hg] Corby Mudrakola DO Work Phone: [facility] 03-06-2023 11:24-0400 Heart rate 56 /min Corby Mudrakola DO Work Phone: [facility] 03-06-2023 11:24-0400 Respiratory rate 16 /min Corby Mudrakola DO Work Phone: [facility] 03-06-2023 11:24-0400 SaO2% (BldA) [Mass fraction] 97 % Corby Barron DO Work Phone: [facility] 03-06-2023 11:24-0400 Systolic blood pressure 166 mm[Hg] Corby Barron DO Work Phone: [facility] 03-06-2023 11:24-0400 Body mass index (BMI) [Ratio] 21.28 kg/m2 Corby Barron DO Work Phone: [facility] 03-06-2023 11:24-0400 Body weight 56.25 kg Corby Barron DO Work Phone: [facility] 05-13-2022 14:20-0400 Diastolic blood pressure 89 mm[Hg] Candice Dotson COMMERCIAL ARTIST - [employer]ARM MANAGER Work Phone: [facility] 05-13-2022 14:20-0400 Heart rate 65 /min Candice Dotson COMMERCIAL ARTIST - [employer]ARM MANAGER Work Phone: [employer] 05-13-2022 14:20-0400 Respiratory rate 18 /min Candice Dotson COMMERCIAL ARTIST - S[employer] FARM MANAGER Work Phone: [employer] 05-13-2022 14:20-0400 SaO2% (BldA) [Mass fraction] 98 % Candice Dotson COMMERCIAL ARTIST - [employer] FARM MANAGER Work Phone: [facility] 05-13-2022 14:20-0400 Systolic blood pressure 193 mm[Hg] Candice Dotson COMMERCIAL ARTIST - [employer] FARM MANAGER Work Phone: [facility] 05-13-2022 12:52-0400 Body temperature 97 [degF] Candice Dotson COMMERCIAL ARTIST - [employer]OW FARM MANAGER Work Phone: [facility] 11-21-2020 18:30-0500 BP Diastolic 89 mm[Hg] ArnoldoHortor [facility] , [place] 11-21-2020 18:30-0500 BP Systolic 151 mm[Hg] [facility] [place] 11-21-2020 18:30-0500 Pulse (Heart Rate) 90 /min Arnoldo Lopez [facility] [place], [place] 11-21-2020 18:30-0500 Pulse Oximetry 98 % Arnoldo Lopez [facility] [place] 11-21-2020 18:30-0500 Respiratory Rate 18 /min Arnoldo Lopez [facility], [place] 11-21-2020 12:10-0500 BMI (Body Mass Index) 19.97 kg/m2 Arnoldo Ennis [facility], [place] 11-21-2020 12:10-0500 Body Temperature 96.4 [degF] Arnoldo Lopez [facility], [place] 11-21-2020 12:10-0500 Body weight 54.43 kg Arnoldo Lopez [place], [place] 11-21-2020 12:10-0500 Height 165.1 cm Arnoldo Lopez [place], [place] Encounters Encounter Date Encounter Type Care Provider Facility Start: 12-13-2023 End: 12-14-2023 [facility] Start: 12-13-2023 End: 12-13-2023 Subsequent hospital visit by physician Kayleen Prakash PA-C Work Phone: [facility] Procedures Date Procedure Procedure Detail Performing Clinician Start: 12-13-2023 Echo tthrc r-t 2d w/wom-mode compl spec&colr d Kayleen Prakash PA-C Work Phone: Start: 03-06-2023 Radex foot complete minimum 3 views Corby Mudrakola DO Work Phone: Start: 05-13-2022 Radex ribs uni w/posteroant ch minimum 3 views Toi Cooper PA-C Work Phone: Start: 05-13-2022 Ct cervical spine w/ o contrast material Toi Cooper PA-C Work Phone: Start: 05-13-2022 Ct head/brain w/o contrast material Toi Cooper PA-C Work Phone: Start: 12-31-2020 History of placement of stent for coronary artery disease S/P drug eluting coronary stent placement Corby Landerswilliam DO Work Phone: Start: 11-21-2020 Ecg routine ecg w/le ast 12 lds w/i&r Arnoldo Lopez Work Phone: Start: 11-21-2020 Ct angiography chest w/contrast/noncontrast Arnoldo Lopez Work Phone: Start: 11-21-2020 Assay of troponin quantitative Arnoldo Lopez Work Phone: Start: 11-21-2020 Basic metabolic pane l calcium total Arnoldo Lopez Work Phone: Start: 11-21-2020 Blood count complete auto&auto difrntl wbc Arnoldo Lopez Work Phone: Start: 11-21-2020 Radiologic exam ches t single view Arnoldo Lopez Work Phone: Start: 11-21-2020 Ecg routine ecg w/le ast 12 lds w/i&r Arnoldo Lopez Work Phone: Start: 07-05-2018 History of placement of stent for coronary artery disease S/P drug eluting coronary stent placement Adelita Alston CNP Work Phone: Start: 05-24-2018 H/O: artificial joint History of artificial joint Corby Gracearaseli DO Work Phone: Abdominal hysterectomy DR AP ALCARAZ DO Open reduction of fracture with fixation DR GARFIELD ALCARAZ DO Plan of Treatment Date Care Activity Detail Author Start: 02-20-2024 End: 02-20-2024 Patient encounter procedure 02/20/2024 3:30 PM EDT Office Visit [facility] [address] [place] [address] Kayleen Prakash PA-C [address] [place] [address] [facility] Start: 01-22-2024 End: 01-22-2024 Patient encounter procedure 01/22/2024 2:45 PM EST Office Visit [facility] Geriatrics [address] [place] [phone] Adelita Quezada, COMMERCIAL ARTIST - SOW FARM MANAGER [address] [place] [address] [facility] Geriatric[facility] Start: 01-13-2024 Depresssion Monitoring Depresssion Monitoring [facility] Start: 12-13-2023 End: 12-13-2023 Patient encounter procedure 12/13/2023 3:00 PM EST Appointment [facility] [address] [place] [phone] Kayleen Prakash PA-C [address] [place], [place] [id number] [facility] Start: 11-23-2023 End: 11-23-2023 Patient encounter procedure 11/23/2023 3:15 PM EST Office Visit [facility] [address] [facility] [address] [place] [address] Bhupendra Lamas MD [address] [facility] [address] [place] [address] [facility] Start: 11-20-2023 End: 11-13-2024 Basic metabolic 1998 panel - Serum or Plasma Basic metabolic panel Lab Routine Edema, unspecified type Essential hypertension Expected: 11/20/2023 (Approximate), Expires: 11/13/2024 [facility] Work Phone: Immunizations Immunization Date Immunization Notes Care Provider Fa cility 11-24-2022 COVID-19, mRNA, LNP- S, bivalent booster, PF, 30 mcg/0.3 mL dose; Translations: [Navegg COVID-19 (12y+) Bivalent Booster Vaccine PF] DR GARFIELD ALCARAZ DO [facility] 11-24-2022 influenza, injectabl e, quadrivalent, contains preservative; Translations: [Fluarix PF Quadrivalent ] DR GARFIELD ALCARAZ DO [facility] 11-24-2022 influenza virus vacc ine, unspecified formulation Adelita Quezada COMMERCIAL ARTIST - [employer] FARM MANAGER Work Phone: [facility] 05-26-2022 COVID-19, mRNA, LNP- S, PF, 100 mcg or 50 mcg dose; Translations: [Moderna COVID-19 Vaccine] DR GARFIELD ALCARAZ DO [facility] 11-29-2021 COVID-19, mRNA, LNP- S, PF, 100 mcg or 50 mcg dose; Translations: [Moderna COVID-19 Vaccine] DR GARFIELD ALCARAZ DO [facility] 05-27-2021 pneumococcal polysaccharide vaccine, 23 valent; Translations: [Pneumovax 23] DR GARFIELD ALCARAZ DO [facility] 01-27-2021 SARS-CoV-2 (COVID-19 ) Ad26 vaccine, recombinant DR GARFIELD ALCARAZ DO [facility] Payers Date Payer Category Payer Medicaid [employer] U[employer] MEDICA[place] ONLY [id number] 2023-Present [address] [place] [address] Medicaid HMO [id number] 2023 Medicare [id number] 2022 Medicare [id number] 2019 Medicaid [id number] 2019 Private Health [address] [facility] [place] DUAL xxxxxxxxx 2019-Present [address] [place] [address] xxxxxxxxx [id number] 2019 Private Health Insurance [id number] 1940 Unknown [id number] 1940 Unknown [id number] 1940 Unknown [id number] Social History Date Type Detail Facility Start: 05-14-2020 End: 09-25-2022 Tobacco smoking status [facility] Former smoker [facility] End: 11-19-2000 History of tobacco use Current smoker [facility] Work Phone: Start: 05-14-2020 End: 11-23-2023 Alcohol intake Current drinker of alcohol (finding) [facility] Work Phone: Start: 10-18-2018 Alcohol Comment occasionally [facility] Work Phone: Start: 1940 Sex Assigned At Not on file [facility] [employer] Work Phone: Start: 05-14-2020 End: 09-25-2022 Tobacco use and exposure Never used [facility] Start: 05-03-2022 End: 07-13-2023 Exposure to SARS-CoV-2 (event) Not sure [facility] Start: 05-13-2022 End: 07-13-2023 Alcohol intake [facility] End: 11-19-2000 History of tobacco use Cigarette Smoker [facility] Work Phone: Sex Assigned At Sex [facility] Start: 09-28-2022 Alcohol Comment occ [facility] Start: 07-13-2023 End: 11-23-2023 Tobacco use panel [facility] Clinical Notes 05-13-2022 to 11-23-2023 Bhupendra Lamas MD - 11/23/2023 3:15 PM Matt Prakash PA-C - 11/13/2023 9:12 AM ESTTelej carlos Samuels - Kayleen Prakash PA-C - 11/13/2023 9:11 AM Reshma Bruno - 03/06/2023 12:54 PM EDT Note Date & Type Note Facility 11-23-2023 History of Present illness Narrative [facility] [address] [facility] [address] Dept: [phone] Dept Visit type: Established : 1940 Chief Complaint: Chief Complaint Patient presents with Follow-up Shortness of Breath Edema History of Present Illness: Marcella Pathak is a 83 y.o. female who is here in follow-up concerning her history of coronary artery disease status post remote stenting, hypertension and hyperlipidemia. She lives in an assisted living facility now. She had amlodipine at 10 mg added to her medicines and developed significant edema. She also had weight gain though. This was stopped and she is now on torsemide for diuretic. Blood pressures have been mildly elevated. She has no symptoms. She has mild dementia which is stable. She has not had syncope or near syncope. She is here with her daughter. Past Medical History: Past Medical History: Diagnosis Date Alzheimer's disease (HCC) Anemia Atrial fibrillation (HCC) Benign essential tremor 07/05/2018 CAD (coronary artery disease) COPD (chronic obstructive pulmonary disease) (HCC) Frequent UTI Heart murmur, systolic 12/31/2020 HTN (hypertension) Hyperlipidemia Palpitations 12/31/2020 Developed when she moved to a house out of assisted living when she was newly going up/down stairs. This increased activity is likely the basis for those Sxs. S/P drug eluting coronary stent placement 12/31/2020 Last cardiac catheterization: 04/06/2017. PCI. LAD, 80%, stented with KASI Synergy 3 x 12 mm. Ejection fraction 60%. EDP 20 mmHg. (No report available about other coronaries). Past Surgical History Past Surgical History: Procedure Laterality Date ABDOMINAL SURGERY BREAST SURGERY CARDIAC PROCEDURE CARDIAC SURGERY CORONARY ANGIOPLASTY CORONARY ANGIOPLASTY WITH STENT PLACEMENT HYSTERECTOMY JOINT REPLACEMENT Left 05/01/2018 partial left hip replacement NEPHROSTOMY ORTHOPEDIC SURGERY Left 05/01/2018 Left Hip Hemiarthroplasty SMALL INTESTINE SURGERY removal due to small bowel obstruction Family History Family History Problem Relation Name Age of Onset Cancer Mother Prostate cancer Father Social History Social History Tobacco Use Smoking status: Former Types: Cigarettes Quit date: 11/19/2000 Years since quittin.0 Smokeless tobacco: Never Substance Use Topics Alcohol use: Yes Comment: occ Drug use: No Allergies: Allergies Allergen Reactions Penicillins Rash Cephalexin Rash Medications: Current Outpatient Medications: alendronate (Fosamax) 70 MG tablet, Take 70 mg by mouth every 7 days., Disp: , Rfl: aspirin 81 MG EC tablet, Take 1 tablet by mouth in the morning., Disp: , Rfl: atorvastatin (Lipitor) 20 MG tablet, Take 20 mg by mouth in the morning., Disp: , Rfl: Calcium Carb-Cholecalciferol (Calcium+D3) 600-20 MG-MCG tablet, Take 1 tablet by mouth daily., Disp: , Rfl: clobetasol (Temovate) 0.05 % cream, Apply topically 2 times daily., Disp: , Rfl: donepezil (Aricept) 10 MG tablet, Take 1 tablet (10 mg) by mouth Nightly., Disp: 90 tablet, Rfl: 1 fluticasone (Flonase) 50 MCG/ACT nasal spray, Administer 1 spray into each nostril daily. Shake gently. Before first use, prime pump. After use, clean tip and replace cap., Disp: , Rfl: fluticasone-vilanterol (BREO ELIPTA) 100-25 MCG/INH inhaler, Inhale 1 puff in the morning., Disp: , Rfl: lidocaine (Lidoderm) 5 % patch, Apply 1 patch topically daily. Remove & discard patch within 12 hours or as directed by MD., Disp: , Rfl: lisinopril 40 MG tablet, Take 1 tablet by mouth in the morning., Disp: , Rfl: loratadine (Claritin) 10 MG tablet, Take 10 mg by mouth daily., Disp: , Rfl: montelukast (Singulair) 10 MG tablet, Take 10 mg by mouth Nightly., Disp: , Rfl: OXYBUTYNIN CHLORIDE PO, Take 10 mg by mouth daily., Disp: , Rfl: potassium chloride CR (Klor-Con M20) 20 MEQ ER tablet, Take 1 tablet by mouth in the morning., Disp: , Rfl: primidone (Mysoline) 50 MG tablet, Take 50 mg by mouth Nightly., Disp: , Rfl: propranolol (Inderal) 80 MG tablet, Take 80 mg by mouth 2 times daily., Disp: , Rfl: torsemide (Demadex) 20 MG tablet, Take 20 mg by mouth daily., Disp: , Rfl: umeclidinium (Incruse Ellipta) 62.5 MCG/INH inhalation, Inhale 1 puff in the morning., Disp: , Rfl: venlafaxine XR (Effexor XR) 150 MG 24 hr capsule, Take 150 mg by mouth in the morning., Disp: , Rfl: Review of Systems: Review of Systems Constitutional: Negative for activity change, chills, diaphoresis, fatigue and fever. HENT: Negative for nosebleeds and trouble swallowing. Eyes: Negative for discharge and visual disturbance. Respiratory: Positive for shortness of breath (with exc). Negative for apnea, cough, chest tightness and wheezing. Cardiovascular: Negative for chest pain, palpitations and leg swelling. Gastrointestinal: Negative for abdominal distention, abdominal pain, blood in stool, diarrhea, nausea and vomiting. Endocrine: Negative for cold intolerance and heat intolerance. Genitourinary: Negative for hematuria. Musculoskeletal: Negative for gait problem and myalgias. Skin: Negative for color change and rash. Neurological: Negative for dizziness, seizures, syncope, facial asymmetry, speech difficulty, weakness, light-headedness, numbness and headaches. Hematological: Does not bruise/bleed easily. Psychiatric/Behavioral: Negative for dysphoric mood. Physical Examination: Vitals: Vitals: 11/23/23 1515 BP: (!) 150/80 BP Location: Left arm Patient Position: Sitting BP Cuff Size: Large adult Pulse: 68 Resp: 16 SpO2: 96% Weight: 138 lb 6.4 oz (62.8 kg) Height: 5' 3 (1.6 m) Body mass index is 24.52 kg/m . Physical Exam Laboratory Tests: Lab Results Component Value Date WBC 8.8 01/09/2023 HGB 14.5 01/09/2023 HCT 44.5 01/09/2023 MCV 91.4 01/09/2023 PLT 276 01/09/2023 Lab Results Component Value Date GLUCOSE 79 01/09/2023 CALCIUM 9.5 01/09/2023 NA 142 09/30/2021 K 3.7 09/30/2021 CO2 31 01/09/2023 CL 102 09/30/2021 BUN 18 01/09/2023 CREATININE 0.96 (H) 01/09/2023 Assessment and Plan: 1. Coronary artery disease involving [place] coronary artery of [place] heart without angina pectoris 2. Edema, unspecified type 3. Essential hypertension 1. Coronary artery disease: Stable. She has not had any symptoms of angina. 2. Lower extremity edema: Resolved. She is on diuretic therapy now. We will keep this as is. 3. Hypertension: Blood pressure is mildly elevated. She is not taking an her hydrochlorothiazide. We will keep her off this and she will monitor her blood pressure with the staff. When she comes back in 3 months if her blood pressure remains elevated, consideration for switching from her torsemide back to hydrochlorothiazide could be made. 4. Tremor: We had stopped her combination of diltiazem and propranolol. Unfortunately with stopping the propranolol her tremor worsened. She is back on propranolol. I would avoid other rate lowering calcium brandon such as diltiazem or verapamil with this. documented in this encounter [facility] 11-13-2023 History of Present illness Narrative Follow-up BMP ordered documented in this encounter [facility] 11-13-2023 Telephone encounter Note I called and spoke with Rachel regarding the labs that were sent over from her mom's facility. BMP and CBC appears stable. I received a phone number of [phone] to call them to order another follow-up BMP to be completed November 20. She then has follow-up with Dr. Lamas on November 23. I left a message requesting the blood work to be completed, and asking for a phone call back with any questions. [facility] 11-13-2023 Miscellaneous Notes I called and spoke with Rachel regarding the labs that were sent over from her mom's facility. BMP and CBC appears stable. I received a phone number of [phone] to call them to order another follow-up BMP to be completed November 20. She then has follow-up with Dr. Lamas on November 23. I left a message requesting the blood work to be completed, and asking for a phone call back with any questions. documented in this encounter [facility] 07-24-2023 Note Addended by: JULIO FOX on: 07/24/2023 02:54 PM Modules accepted: Orders [facility] 07-24-2023 Note Addended by: JULIO FOX on: 07/24/2023 02:54 PM Modules accepted: Orders [facility] 07-24-2023 Note Addended by: JULIO FOX on: 07/24/2023 02:54 PM Modules accepted: Orders [facility] 07-24-2023 Miscellaneous Notes Addended by: JULIO RAY on: 07/24/2023 02:54 PM Modules accepted: Orders Spoke to Rosie with [facility]. Gave verbal order for Propranolol 80 mg BID and Amlodipine 5 mg daily. Stop Diltiazem. She will hand write order and mail it to our office for Dr. Lamas to sign. MAR updated. Rosie from the [facility] office is returning your call. Please call her back at [phone] Call and left message for pt's nurse to please call the office back for new orders from Dr. Lamas regarding the pts increased tremors. Spoke to Rosie at [facility]. She states pt tremors have been getting worse. Rosie states pt is having a hard time putting her make up on. Per Dr. Lamas note from 06/11/23 if pt tremors get worse he will resume the Propranolol, stop the Diltiazem and add Amlodipine. Will review with JDR and call facility back with instructions. LM on VM for Rosie to call office. Please call Rosie about PT having tremors. documented in this encounter [facility] 07-24-2023 Telephone encounter Note Spoke to Rosie with [facility]. Gave verbal order for Propranolol 80 mg BID and Amlodipine 5 mg daily. Stop Diltiazem. She will hand write order and mail it to our office for Dr. Lamas to sign. MAR updated. [facility] 07-24-2023 Telephone encounter Note Rosie from the [facility] office is returning your call. Please call her back at [phone] [facility] 07-20-2023 Telephone encounter Note Call and left message for pt's nurse to please call the office back for new orders from Dr. Lamas regarding the pts increased tremors. [facility] 07-19-2023 Telephone encounter Note Spoke to Rosie at [facility]. She states pt tremors have been getting worse. Rosie states pt is having a hard time putting her make up on. Per Dr. Lamas note from 06/11/23 if pt tremors get worse he will resume the Propranolol, stop the Diltiazem and add Amlodipine. Will review with JDR and call facility back with instructions. [facility] 07-19-2023 Telephone encounter Note LM on VM for Rosie to call office. [facility] 07-19-2023 Telephone encounter Note Please call Rosie about PT having tremors. [facility] 07-16-2023 Telephone encounter Note Rx sent to pharmacy. [facility] 07-16-2023 Miscellaneous Notes Rx sent to pharmacy. Name of caller: Maria L Contact phone number: [phone] Relationship to Patient: From [facility] Provider: Adelita Quezada Practice: [facility] Chief Complaint/Reason for Call: Maria L called Xiomara back asking if the medication can be sent to [facility], fax number [phone] Best time of day caller can be reached: Any Patient advised that office/PCP has 24-48 business hours to return their call: Yes Left message on Nurses Line requesting clarification as to which pharmacy this medication needs sent to. Noted. That prescription was a refill for the donepezil, not a duplicate. Daughter wasn't sure what pharmacy I should send refill to. Name of caller: Rosie from [facility] Contact phone number: [phone] Relationship to Patient: Rosie from [facility] Provider: Adelita Quezada Practice: [facility] Chief Complaint/Reason for Call: Rosie from [facility] stated that the patient was already on the medication donepezil (Aricept) 10 MG tablet. Please advise. Best time of day caller can be reached: any Patient advised that office/PCP has 24-48 business hours to return their call: No documented in this encounter [facility] 07-13-2023 Telephone encounter Note Name of caller: Maria L Contact phone number: [phone] Relationship to Patient: From [facility] Provider: Adelita Quezada Practice: [facility] Chief Complaint/Reason for Call: Maria L called Xiomara yeni asking if the medication can be sent to [facility], fax number [phone] Best time of day caller can be reached: Any Patient advised that office/PCP has 24-48 business hours to return their call: Yes [facility] 07-13-2023 Telephone encounter Note Left message on Nurses Line requesting clarification as to which pharmacy this medication needs sent to. [facility] 07-13-2023 Telephone encounter Note Noted. That prescription was a refill for the donepezil, not a duplicate. Daughter wasn't sure what pharmacy I should send refill to. [facility] 07-13-2023 Telephone encounter Note Name of caller: Rosie from [facility] Contact phone number: [phone] Relationship to Patient: Rosie from [facility] Provider: Adelita Quezada Practice: [facility] Chief Complaint/Reason for Call: Rosie from [facility] stated that the patient was already on the medication donepezil (Aricept) 10 MG tablet. Please advise. Best time of day caller can be reached: any Patient advised that office/PCP has 24-48 business hours to return their call: No [facility] 03-06-2023 Emergency department Note Post op shoe placed on left foot. MSP's intact before and after application. Pt tolerated well. Maureen Bruno 03/06/23 1254 [facility] 03-06-2023 Emergency department Note Post op shoe placed on left foot. MSP's intact before and after application. Pt tolerated well. Maureen Bruno 03/06/23 1254 documented in this encounter [facility] 12-05-2022 Note . MICRO - Microbiology PROCEDURE: Urine Culture [*1] SOURCE: Urine, Clean Catch BODY SITE: COLLECTED DATE/TIME: 12/04/2022 10:20 EST RECEIVED DATE/TIME: 12/04/2022 14:36 EST START DATE/TIME: 12/04/2022 14:37 EST FREE TEXT SOURCE: FINAL REPORTS Final Report [] Verified Date/Time/Personnel: 12/05/2022 17:15 EST 10,000 - 50,000 cfu/ml Multiple bacterial morphotypes present. Probable Contamination. Suggest recollection if clinically indicated. Performing Locations *1: This test was performed at: [facility], [address] [place] [address], [phone] , [facility] ([place]) 05-13-2022 Hospital Discharge instructions Toi Cooper PA-C - 05/13/[address] scan of the head/neck did not show any signs of significant injury. Xray of the rib cage shows possible cracked 10th right rib. Use incentive spirometer every hour while awake for the next two weeks. Follow up with your primary care doctor in one to two weeks. If you develop any new or worsening symptoms contact your doctor or return to the ED. The following attachments cannot be sent through Care Everywhere.Head Injury: Closed: General Info ([place] Island[place])Rib Fracture ([place])documented in this encounter [facility] Work Phone: Evaluation + Plan note Future Appointments Appointment Date:06/01/2023 01:30:00 PM Scheduled Provider:GARFIELD ALCARAZ DO Location:[facility] Appointment Type:PC OV Follow Up Future Scheduled TestsThyroid Stimulating Hormone 05/26/22Complete Blood Count 05/26/22Vitamin D Level 05/26/22Complete Metabolic Panel 05/26/22 [facility] documented in this encounter [facility] Work Phone: Evaluation note* Diagnosis Closed nondisplaced fracture of proximal phalanx of lesser toe of left foot, initial encounter- Primary Fall, initial encounter [facility]* Diagnosis Edema, unspecified type- Primary Essential hypertension Unspecified essential hypertension documented in this encounter [facility]* Diagnosis Coronary artery disease involving [place] coronary artery of [place] heart without angina pectoris- Primary Edema, unspecified type Essential hypertension Unspecified essential hypertension documented in this encounter [facility]* Diagnosis Coronary artery disease involving [place] coronary artery of [place] heart without angina pectoris Edema, unspecified type [facility] N[facility] No data available for this section [facility] Hospital Discharge instructions No data available for this section [facility] Hospital Discharge instructions* Attachments The following attachments cannot be sent through Care Everywhere. 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 Advance Directives and Living Will Advance Directives and Living Will 04/28/2019 9:59 AM DNRCCA [id number] Georgia carroll Power of Ballistics Professor Latest Code Status on File Code Status Date Activated Date Inactivated Comments DNR-CCA 04/25/2019 1:50 PM Full Code 05/01/2018 6:23 AM 05/04/2018 4:40 PM Documents on File Type Date Recorded 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 ACP-Advance Directive ACP-Advance Directive 04/28/2019 9:59 AM D NRCCA [id number] Kaaniyah ACP-Power of Ballistics Professor Latest Code Status on File Code Status Date Activated Date Inactivated Comments DNR-CCA 04/25/2019 1:50 PM 11/21/2020 12:07 PM Documents on File Type Date Recorded 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 ACP-Advance Directive ACP-Advance Directive 04/28/2019 9:59 AM D NRCCA [id number] Kaaniyah ACP-Power of Ballistics Professor Latest Code Status on File Code Status Date Activated Date Inactivated Comments DNR-CCA 04/25/2019 1:50 PM 11/21/2020 12:07 PM Full Code 05/01/2018 6:23 AM 05/04/2018 4:40 PM Documents on File Type Date Recorded 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 * Palpitations ([place]) documented in this encounter History of Present Illness * Edmundo Marie MD - 11/21/2020 5:21 PM EST I was paged on the chest pain pager reading Jeniffer. Seems like she came into the ED with palpitations and has had some runs of atrial tachycardia where she suddenly jumps from 80s to 130s. She feels it. CTA negative for PE. TSH not in system as far as I can see. Upon ED attending request to speak with her primary under water assistant (Dr Adams) I facilitated that. Edmundo Marie MD documented in this encounter Assessments Diagnosis Palpitations- Primary Atrial tachycardia, paroxysmal (HCC) Paroxysmal supraventricular tachycardia Diagnosis Atrial tachycardia (HCC) Other specified cardiac dysrhythmias Reason for Referral Status Reason Specialty Diagnoses / Procedures Referre d By Contact Referred To Contact Open Cardiology Diagnoses Atrial tachycardia (HCC) Procedures Event Monitor Kayleen Prakash PA-C [address] [place] [address] Specialty Diagnoses / Procedures Referred By Contac t Referred To Contact Cardiology Diagnoses Coronary artery disease involving [place] coronary artery of [place] heart without angina pectoris Edema, unspecified type Procedures Transthoracic echocardiogram (TTE) complete with contrast, bubble, strain, and 3D PRN MI ECHO TTHRC R-T 2D W/WOM-MODE COMPL SPEC&COLR D MI TTE W OR WO FOL WCON,DOPPLER Kayleen Prakash PA-C [address] [place] [address] Referral ID Status Reason Start Date Expiration Date Visits Re quested Visits Authorized [id number] Closed 12/13/2023 03/11/2024 1 1 Additional Source Comments INFORMATION SOURCE (unrecogn ized section and content) DATE CREATED AUTHOR AUTHOR'S ORGANIZ ATION 09/15/2021 [facility] DATE CREATED AUTHOR AUTHOR'S ORGANIZ ATION 07/24/2022 [facility] DATE CREATED AUTHOR AUTHOR'S ORGANIZ ATION 12/13/2022 [facility] ([place]) DATE CREATED AUTHOR AUTHOR'S ORGANIZ ATION 12/15/2023 [facility] Reason for Visit (unrecogniz ed section and content) Reason Comments Fall patient reports fall ing backwards last night in the garden; patient reports tripping and falling; patient reports hitting her head, back, and ribs; patient denies LOC and blurred vision; patient reports headache, dizziness, and bruising on her head. Patient reports 10/10 rib pain on both sides with more severe pain on right side. Patient is currenlty taking ASA. Reason Comments Fall Reason Onset Date Comments Other 07/13/2023 FYI Reason Onset Date Comments Med Management 07/19/2023 Reason Comments Follow-up Shortness of Breath Edema Specialty Diagnoses / Procedures Referred By Zachary t Referred To Contact Cardiology Diagnoses Coronary artery disease involving [place] coronary artery of [place] heart without angina pectoris Edema, unspecified type Procedures Transthoracic echocardiogram (TTE) complete with contrast, bubble, strain, and 3D PRN MI ECHO TTHRC R-T 2D W/WOM-MODE COMPL SPEC&COLR D MI TTE W OR WO FOL WCON,DOPPLER Kayleen Prakash PA-C [address] [place] [address] Referral ID Status Reason Start Date Expiration Date Visits Re quested Visits Authorized [id number] Closed 12/13/2023 03/11/2024 1 1 Ordered Prescriptions (unrec ognized section and content) Care Teams (unrecognized sec tion and content) Basin Tender Relationship Specialty Start Date End Date Garfield Alcaraz DO [address] [place] [id number] PCP - General 07/07/22 Basin Tender Relationship Specialty Start Date End Date Garfield Alcaraz DO [address] [place] [address] PCP - General 07/07/22 Basin Tender Relationship Specialty Start Date End Date Garfield Alcaraz DO [address] [place], [place] [id number] PCP - General 07/07/22 Basin Tender Relationship Specialty Start Date End Date Garfield Alcaraz DO [address] [place], [place] [phone] PCP - General 07/07/22 Basin Tender Relationship Specialty Start Date End Date Garfield Alcaraz DO [address] [place], [place] [id number] PCP - General 07/07/22 Basin Tender Relationship Specialty Start Date End Date Garfield Alcaraz DO [address] [place] [phone] PCP - General 07/07/22 Basin Tender Relationship Specialty Start Date End Date Garfield Alcaraz DO [address] [place] [phone] PCP - General 07/07/22 Basin Tender Relationship Specialty Start Date End Date Garfield Alcaraz DO [address] [place] [phone] PCP - General 07/07/22 Care Team (unrecognized sect ion and content) Care Team Personnel Name: KIERAN, GARFIELD DO Position: P4 Physician - Primary Care Member Role: Primary Care Physician Address: Address: [address] [place] [address] Care Team Related Persons Name: DIXON ANTUNEZ Name: YVETTE WADDELL Address: [facility] Care Team Personnel Name: KIERAN GARFIELD Position: P4 Physician - Primary Care Member Role: Primary Care Physician Address: Address: [address] [place] [address] Care Team Related Persons Name: IDALIA ANTUNEZI Name: YVETTE WADDELL Address: [facility] FOR RECORDS PERTAINING TO PATIENTS WHO ARE OR HAVE BEEN ENROLLED IN A CHEMICAL DEPENDENCY/SUBSTANCEABUSE PROGRAM, SOME INFORMATION MAY BE OMITTED. This clinical summary was aggregated from multiple sources. Caution should be exercised in using it in the provision of clinical care. This summary normalizes information from multiple sources, and as a consequence, information in this document may materially change the coding, format and clinical context of patient data. In addition, data may be omitted in some cases. CLINICAL DECISIONS SHOULD BE BASED ON THE PRIMARY CLINICAL RECORDS. [facility] [employer] [facility]. provides no warranty or guarantee of the accuracy or completeness of information in this document.
[2024-01-12 13:00] LABS: Absolute Lymphocyte Count 1.05 X10^3/uL (0.83-4.51); Basophil# 0.07 X10^3/uL; Basophil% 0.4 % (0-1); Eosinophil# 0.03 X10^3/uL; Eosinophils% 0.2 % (0-5); Hematocrit 35.4 % (37-47); Hemoglobin 11.1 g/dL (12.0-15.0); Lymphocyte # 1.05 X10^3/ul (0.83-4.51); Lymphocyte % 6.6 % (19-41); Mean Corp Hgb Conc 31.4 g/dL (32-36); Mean Corpuscular Hgb 28.5 pg (27.0-32.0); Mean Platelet Vol. 9.7 fl (6.2-12.0); Monocyte# 0.75 X10^3/uL; Monocyte% 4.7 % (0-10); NRBC Flagged by Analyzer 0 % (0-5); Neutrophil # 13.98 X10^3/uL (2.7-7.7); Neutrophil % 87.3 % (47-70); Platelet Count 166 K/mm3 (150-450); RBC Distribution Width CV 14.7 % (11.6-14.6); RBC Distribution Width SD 49.2 fl (35.1-43.9); Red Blood Count 3.89 M/mm3 (4.2-5.4)
[2024-01-12 13:16] LABS: Anion Gap 4 (5-15); BUN 22 mg/dL (7-18); Calcium,Total 9.4 mg/dL (8.5-10.1); Chloride 106 mmol/L (98-107); Creatinine, Serum 1.05 mg/dL (0.55-1.02); EST Glomerular Filtration Rate 53 mL/min (>60); Est Glom Filt Rate - Afr Amer 65 mL/min (>60); Estimated Creatinine Clearance 39.28 ml/min; Glucose 136 mg/dL (74-106); Potassium 4.3 mmol/L (3.5-5.1); Sodium Level 142 mmol/L (136-145)
[2024-01-12] MEDS: 0.9% Normal Saline (500mL Bag) 500 ML 999 ML IV (13:56)
[2024-01-12] MEDS: Acetaminophen 500 MG Tablet 1000 MG PO ×2 (13:56→20:47)
[2024-01-12 15:32] VITALS: BP 106/70; PULSE 73; RESP 12; TEMP 36.8; O2SAT 97
[2024-01-12] MEDS: Morphine 4 MG/ML Syringe IV (15:43)
[2024-01-12] MEDS: Ondansetron 4 MG/2 ML Vial IV (15:43)
--- NOTE | 2024-01-12 15:43 | ED.RN ---
1543: attempted to call report to [facility], no answer at this time. I left a message for a call back.
--- OUTSIDE RECORDS SUMMARY | 2024-01-12 16:01 | XMS RPT_ITS | CCD ---
Author Name Unknown Address [address] [place] [address] Organization [facility] Care Team Providers Care Melt Supervisor Name Role Phone Garfield Alcaraz Primary Care Provider Candice Dotson Primary Care Provider [phone] Garfield Alcaraz DO Primary Care Provider Candice Montes APRN, CNP Primary Care Provider Garfield Alcaraz DO Primary Care Provider [phone] KIERAN ALEXANDER, DR MERRILL Primary Care Physician LIVIER JOHNSTON Attending Rhona ALCARAZ DO, DR. MERRILL Primary Care Unavailbrady ALCARAZ DO, DR. MERRILL Attending Viral ALCARAZ DO, DR. MERRILL Primary Care Unavailbrady ALCARAZ DO, DR. MERRILL Attending Viral ALCARAZ DO, DR. MERRILL Primary Care UnavailGarfield Agee DO Primary Care Provider Garfield Alcaraz DO Primary Care Provider CORBY BARRON Attending Unavailable GARFIELD ALCARAZ Primary Care Unavailable GARFIELD ALCARAZ Primary Care Unavailable ANDRADE, KAYLEEN Referring Unavailable GARFIELD ALCARAZ Primary Care Unavailable ANDRADE, KAYLEEN Referring Unavailable ANDRADE, KAYLEEN Attending Unavailable ANDRADE, KAYLEEN Attending Unavailable GARFIELD ALCARAZ Primary Care Unavailable ADELITA QUEZADA Attending Unavailable GARFIELD ALCARAZ Primary Care Unavailable GARFIELD ALCARAZ Primary Care Unavailable ANDRADE, KAYLEEN Attending Unavailable GARFIELD ALCARAZ Primary Care Unavailable BHUPENDRA LAMAS Attending Unavailable BHUPENDRA LAMAS Attending Unavailable GARFIELD ALCARAZ Primary Care Unavailable OLGA CABELLO Referring Unavailable GARFIELD ALCARAZ Primary Care Unavailable Allergies Allergy Classification Reported Allergen(s) Allergy Type Date of Onset Reaction(s) Facility (16 sources) Cephalexin Drug Allergy 06-13-2018 [facility] Work Phone: (7 sources) Penicillin G Drug Allergy 05-24-2018 [facility] Work Phone: (7 sources) Penicillins Propensity to adverse reactions to drug 04-30-2018 [facility] Work Phone: (2 sources) Penicillin; Translations: [penicillin] Drug Allergy [facility] (9 sources) Penicillins Drug Intolerance 04-30-2018 [facility] Medications Current Medications Medication Drug Class(es) Dates Sig (Normalized) Sig (Original) albuterol MDI (90 mcg/inh) CFC free inhalation aerosol (2 sources) Start: 10-07-2021 take 2 puff(s) by inhalation every four hours as needed for wheezing albuterol MDI (90 mcg/inh) CFC free inhalation aerosol 2 puff(s), Inhalation, q4h, PRN as needed for wheezing, # 18 gram(s), 0 Refill(s), Pharmacy: [facility] 1910, Encounter by telehealth for suspected COVID-19, 163, cm, 10/07/21 8:59:00 EST, Height, kg, 10/07/21 8:59:00 EST, Dosing Weight Start Date: 10/07/21 Status: Ordered alendronic acid 70 mg oral tablet (18 sources) Bisphosphonate Start: 09-21-2022 Fosamax 70 mg oral tablet Dose : 70 mg = 1 tab(s), Oral, qWeek, # 13 tab(s), 3 Refill(s), Pharmacy: [facility], 161.5, cm, 05/26/22 7:57:00 EDT, Height, kg, [...] qDay, # 90 tab(s), 3 Refill(s), Pharmacy: [facility], 161.5, cm, 05/26/22 7:57:00 EDT, Height, kg, 05/26/22 7:57:00 EDT, Dosing Weight Start Date: 08/29/22 Status: Ordered Completed/Discontinued Medications Medication Drug Class(es) Dates Sig (Normalized) Sig (Original) fluconazole 150 mg oral tablet (2 sources) Azole Antifungal Start: 11-24-2022 End: 11-24-2022 Diflucan 150 mg oral tablet Dose : 150 mg = 1 tab(s), Oral, qDay, # 1 tab(s), 0 Refill(s), Pharmacy: [facility]/pharmacy #[id number], 161.5, cm, 11/24/22 14:22:00 EST, Height, [...] Coronary arteriosclerosis; Translations: [Atherosclerotic heart disease of [place] coronary artery without angina pectoris] Onset: 12-31-2020 [...] lity 12-13-2023 14:51-0500 Body height 160 cm [employer] Work Phone: [employer] 12-13-2023 14:51-0500 Body mass index (BMI) [Ratio] 24.52 kg/m2 [employer] Work Phone: [employer] 12-13-2023 14:51-0500 Body weight 62.78 kg Kayleen Prakash PA-C Work Phone: [facility] 11-23-2023 15:15-0500 Body height 160 cm Bhupendra Lamas MD Work Phone: [facility] 11-23-2023 15:15-0500 Body mass index (BMI) [Ratio] 24.52 kg/m2 Bhupendra Lamas MD Work Phone: [facility] 11-23-2023 15:15-0500 Body weight 62.78 kg Bhupendra Lamas MD Work Phone: [facility] 11-23-2023 15:15-0500 Diastolic blood pressure 80 mm[Hg] Bhupendra Lamas MD Work Phone: [facility] 11-23-2023 15:15-0500 Heart rate 68 /min Bhupendra Lamas MD Work Phone: [facility] 11-23-2023 15:15-0500 Respiratory rate 16 /min Bhupendra Lamas MD Work Phone: [facility] 11-23-2023 15:15-0500 SaO2% (BldA) [Mass fraction] 96 % Bhupendra Lamas MD Work Phone: [facility] 11-23-2023 15:15-0500 Systolic blood pressure 150 mm[Hg] Bhupendra Lamas MD Work Phone: [facility] 03-06-2023 11:24-0400 Body temperature 96.6 [degF] Corby Mudrakola DO Work Phone: [facility] 03-06-2023 11:24-0400 Diastolic blood pressure 87 mm[Hg] Corby Mudrakola DO Work Phone: [facility] 03-06-2023 11:24-0400 Heart rate 56 /min Corby Mudrakola DO Work Phone: [facility] 03-06-2023 11:24-0400 Respiratory rate 16 /min Corby Mudrakola DO Work Phone: [facility] 03-06-2023 11:24-0400 SaO2% (BldA) [Mass fraction] 97 % Corby Barron DO Work Phone: [facility] 03-06-2023 11:24-0400 Systolic blood pressure 166 mm[Hg] Corby Barron DO Work Phone: [facility] 03-06-2023 11:24-0400 Body mass index (BMI) [Ratio] 21.28 kg/m2 Corby Barron DO Work Phone: [facility] 03-06-2023 11:24-0400 Body weight 56.25 kg Corby Barron DO Work Phone: [facility] 05-13-2022 14:20-0400 Diastolic blood pressure 89 mm[Hg] Candice Dotson CHECK VIEWER - WIRELESS CONSTRUCTION MANAGER Work Phone: [facility] 05-13-2022 14:20-0400 Heart rate 65 /min Candice Dotson CHECK VIEWER - WIRELESS CONSTRUCTION MANAGER Work Phone: [employer] 05-13-2022 14:20-0400 Respiratory rate 18 /min Candice Dotson CHECK VIEWER - WIRELESS CONSTRUCTION MANAGER Work Phone: [employer] 05-13-2022 14:20-0400 SaO2% (BldA) [Mass fraction] 98 % Candice Dotson CHECK VIEWER - WIRELESS CONSTRUCTION MANAGER Work Phone: [facility] 05-13-2022 14:20-0400 Systolic blood pressure 193 mm[Hg] Candice Dotson CHECK VIEWER - WIRELESS CONSTRUCTION MANAGER Work Phone: [facility] 05-13-2022 12:52-0400 Body temperature 97 [degF] Candiec Dotson CHECK VIEWER - WIRELESS CONSTRUCTION MANAGER Work Phone: [facility] 11-21-2020 18:30-0500 BP Diastolic 89 mm[Hg] [facility]ocal [facility] , [place] 11-21-2020 18:30-0500 BP Systolic 151 mm[Hg] [facility] [place] 11-21-2020 18:30-0500 Pulse (Heart Rate) 90 /min Arnoldo Lopez [facility], [place] 11-21-2020 18:30-0500 Pulse Oximetry 98 % Arnoldo Lopez [facility] [place] 11-21-2020 18:30-0500 Respiratory Rate 18 /min Arnoldo Lopez [facility], [place] 11-21-2020 12:10-0500 BMI (Body Mass Index) 19.97 kg/m2 Arnoldo Ennis [facility], [place] 11-21-2020 12:10-0500 Body Temperature 96.4 [degF] Arnoldo Lopez [facility], [place] 11-21-2020 12:10-0500 Body weight 54.43 kg Arnoldo Lopez [place], [place] 11-21-2020 12:10-0500 Height 165.1 cm Arnoldo Lopez [place], [place] Encounters Encounter Date Encounter Type Care Provider Facility Start: 12-13-2023 End: 12-14-2023 [facility] Start: 12-13-2023 End: 12-13-2023 Subsequent hospital visit by physician Kayleen Prakash PA-C Work Phone: [facility] Procedures Date Procedure Procedure Detail [...] procedure 02/20/2024 3:30 PM EDT Office Visit [facility] [address] [place] [address] Kayleen Prakash PA-C [address] [place] [address] [facility] Start: 01-22-2024 End: 01-22-2024 Patient encounter procedure 01/22/2024 2:45 PM EST Office Visit [facility] Ger[facility] [address] [place] [id number] Adelita Quezada, CHECK VIEWER - WIRELESS CONSTRUCTION MANAGER [address] [place] [address] [facility] Start: 01-13-2024 Depresssion Monitoring Depresssion Monitoring [facility] Start: 12-13-2023 End: 12-13-2023 Patient encounter procedure 12/13/2023 3:00 PM EST Appointment [facility] [address] [place] [id number] Kayleen Prakash PA-C [address] [place], [place] [address] [facility] Start: 11-23-2023 End: 11-23-2023 Patient encounter procedure 11/23/2023 3:15 PM EST Office Visit [facility] [address] [facility] [address] [place] [address] Bhupendra Lamas MD [address] [facility] [address] [place] [address] [facility] Start: 11-20-2023 End: 11-13-2024 Basic metabolic 1998 panel - Serum or Plasma Basic metabolic panel Lab Routine Edema, unspecified type Essential hypertension Expected: 11/20/2023 (Approximate), Expires: 11/13/2024 [facility] Work Phone: Immunizations Immunization Date Immunization Notes Care Provider Fa cility 11-24-2022 COVID-19, mRNA, LNP- S, bivalent booster, PF, 30 mcg/0.3 mL dose; Translations: [CinemaNow COVID-19 (12y+) Bivalent Booster Vaccine PF] DR GARFIELD ALCARAZ DO [facility] 11-24-2022 influenza, injectabl e, quadrivalent, contains preservative; Translations: [Fluarix PF Quadrivalent ] DR GARFIELD ALCARAZ DO [facility] 11-24-2022 influenza virus vacc ine, unspecified formulation Adelita Quezada CHECK VIEWER - WIRELESS CONSTRUCTION MANAGER Work Phone: [facility] 05-26-2022 COVID-19, mRNA, LNP- S, PF, 100 mcg or 50 mcg dose; Translations: [Moderna COVID-19 Vaccine] DR GARFIELD ALCARAZ DO [facility] 11-29-2021 COVID-19, mRNA, LNP- S, PF, 100 mcg or 50 mcg dose; Translations: [Moderna COVID-19 Vaccine] DR GARFIELD ALCARAZ DO [facility] 05-27-2021 pneumococcal polysaccharide vaccine, 23 valent; Translations: [Pneumovax 23] DR GARFIELD ALCARAZ DO [facility] 01-27-2021 SARS-CoV-2 (COVID-19 ) Ad26 vaccine, recombinant DR GARFIELD ALCARAZ DO [facility] Payers Date Payer Category Payer Medicaid [employer] U[employer] MEDICAID ONLY [id number] 2023-Present [address] [place] [address] Medicaid HMO [id number] 2023 Medicare [id number] 2022 Medicare [id number] 2019 Medicaid [id number] 2019 Private Health Insurance [facility] DUAL xxxxxxxxx 2019-Present [address] [place] [address] xxxxxxxxx [id number] 2019 Private Health Insurance [id number] 1942 Unknown [id number] 1942 Unknown [id number] 1940 Unknown [id number] Social History Date Type Detail Facility Start: 05-14-2020 End: 09-25-2022 Tobacco smoking status [facility] Former smoker [facility] End: 11-19-2000 History of tobacco use Current smoker [facility] Work Phone: Start: 05-14-2020 End: 11-23-2023 Alcohol intake Current drinker of alcohol (finding) [facility] Work Phone: Start: 10-18-2018 Alcohol Comment occasionally [facility] Work Phone: Start: 1940 Sex Assigned At Not on file [facility] [employer] Work Phone: Start: 05-14-2020 End: 09-25-2022 Tobacco use and exposure Never used [email or web address] Start: 05-03-2022 End: 07-13-2023 Exposure to SARS-CoV-2 (event) Not sure [email or web address] Start: 05-13-2022 End: 07-13-2023 Alcohol intake [facility] End: 11-19-2000 History of tobacco use Cigarette Smoker [facility] Work Phone: Sex Assigned At Sex [facility] Start: 09-28-2022 Alcohol Comment occ [facility] Start: 07-13-2023 End: 11-23-2023 Tobacco use panel [facility] Clinical Notes 05-13-2022 to 11-23-2023 Bhupendra Lamas MD - 11/23/2023 3:15 PM Matt Prakash PA-C - 11/13/2023 9:12 AM ESTTelej carlos Samuels - Kayleen Prakash PA-C - 11/13/2023 9:11 AM Reshma Bruno - 03/06/2023 12:54 PM EDT Note Date & Type Note Facility 11-23-2023 History of Present illness Narrative [facility] [address] [facility] [address] Dept: [phone] Dept Visit type: Established : 1940 Chief [...] and Plan: 1. Coronary artery disease involving [place] coronary artery of [place] heart without angina pectoris 2. Edema, unspecified [...] verapamil with this. documented in this encounter [facility] 11-13-2023 History of Present illness Narrative Follow-up BMP ordered documented in this encounter [facility] 11-13-2023 Telephone encounter Note I called and spoke with Rachel regarding the labs that were sent over from her mom's facility. BMP and CBC appears stable. I received a phone number of [phone] to call them to order another follow-up BMP to be completed November 20. She then has follow-up with Dr. Lamas on November 23. I left a message requesting the blood work to be completed, and asking for a phone call back with any questions. [facility] 11-13-2023 Miscellaneous Notes I called and spoke with Rachel regarding the labs that were sent over from her mom's facility. BMP and CBC appears stable. I received a phone number of [phone] to call them to order another follow-up BMP to be completed November 20. She then has follow-up with Dr. Lamas on November 23. I left a message requesting the blood work to be completed, and asking for a phone call back with any questions. documented in this encounter [facility] 07-24-2023 Note Addended by: JULIO FOX on: 07/24/2023 02:54 PM Modules accepted: Orders [facility] 07-24-2023 Note Addended by: JULIO FOX on: 07/24/2023 02:54 PM Modules accepted: Orders [facility] 07-24-2023 Note Addended by: JULIO FOX on: 07/24/2023 02:54 PM Modules accepted: Orders [facility] 07-24-2023 Miscellaneous Notes Addended by: JULIO RAY on: 07/24/2023 02:54 PM Modules accepted: Orders Spoke to Rosie with [facility]. Gave verbal order for Propranolol 80 mg BID and Amlodipine 5 mg daily. Stop Diltiazem. She will hand write order and mail it to our office for Dr. Lamas to sign. MAR updated. Rosie from the [place] office is returning your call. Please call her back at [phone] Call and left message for pt's nurse to please call the office back for new orders from Dr. Lamas regarding the pts increased tremors. Spoke to Rosie at [facility]. She states pt tremors have been getting [...] PT having tremors. documented in this encounter [facility] 07-24-2023 Telephone encounter Note Spoke to Rosie with [facility]. Gave verbal order for Propranolol 80 mg BID and Amlodipine 5 mg daily. Stop Diltiazem. She will hand write order and mail it to our office for Dr. Lamas to sign. MAR updated. [facility] 07-24-2023 Telephone encounter Note Rosie from the [place] office is returning your call. Please call her back at [phone] [facility] 07-20-2023 Telephone encounter Note Call and left message for pt's nurse to please call the office back for new orders from Dr. Lamas regarding the pts increased tremors. [facility] 07-19-2023 Telephone encounter Note Spoke to Rosie at [facility]. She states pt tremors have been getting worse. Rosie states pt is having a hard time putting her make up on. Per Dr. Lamas note from 06/11/23 if pt tremors get worse he will resume the Propranolol, stop the Diltiazem and add Amlodipine. Will review with JDR and call facility back with instructions. [facility] 07-19-2023 Telephone encounter Note LM on VM for Rosie to call office. [facility] 07-19-2023 Telephone encounter Note Please call Rosie about PT having tremors. [facility] 07-16-2023 Telephone encounter Note Rx sent to pharmacy. [facility] 07-16-2023 Miscellaneous Notes Rx sent to pharmacy. Name of caller: Maria L Contact phone number: [phone] Relationship to Patient: From [facility] Provider: Adelita Quezada Practice: [facility] Chief Complaint/Reason for Call: Maria L called Xiomara back asking if the medication can be sent to Skilled care, fax number [phone] Best time of day caller can be [...] refill to. Name of caller: Rosie from [facility] Contact phone number: [phone] Relationship to Patient: Rosie from [facility] Provider: Adelita Quezada Practice: [facility] Chief Complaint/Reason for Call: Rosie from [facility] stated that the patient was already on the medication donepezil (Aricept) 10 MG tablet. Please advise. Best time of day caller can be reached: any Patient advised that office/PCP has 24-48 business hours to return their call: No documented in this encounter [facility] 07-13-2023 Telephone encounter Note Name of caller: Maria L Contact phone number: [phone] Relationship to Patient: From [facility] Provider: Adelita Quezada Practice: [facility] Chief Complaint/Reason for Call: Maria L called Xiomara yeni asking if the medication can be sent to Skilled care, fax number [phone] Best time of day caller can be reached: Any Patient advised that office/PCP has 24-48 business hours to return their call: Yes [facility] 07-13-2023 Telephone encounter Note Left message on Nurses Line requesting clarification as to which pharmacy this medication needs sent to. [facility] 07-13-2023 Telephone encounter Note Noted. That prescription was a refill for the donepezil, not a duplicate. Daughter wasn't sure what pharmacy I should send refill to. [facility] 07-13-2023 Telephone encounter Note Name of caller: Rosie from [facility] Contact phone number: [phone] Relationship to Patient: Rosie from [facility] Provider: Adelita Quezada Practice: [facility] Chief Complaint/Reason for Call: Rosie from [facility] stated that the patient was already on the medication donepezil (Aricept) 10 MG tablet. Please advise. Best time of day caller can be reached: any Patient advised that office/PCP has 24-48 business hours to return their call: No [facility] 03-06-2023 Emergency department Note Post op shoe placed on left foot. MSP's intact before and after application. Pt tolerated well. Maureen Bruno 03/06/23 1254 [facility] 03-06-2023 Emergency department Note Post op shoe placed on left foot. MSP's intact before and after application. Pt tolerated well. Maureen Bruno 03/06/23 1254 documented in this encounter [facility] 12-05-2022 Note . MICRO - Microbiology [...] Locations *1: This test was performed at: [facility], [address] [place] [address], [phone] , [facility] 05-13-2022 Hospital Discharge instructions Toi Cooper [...] through Care Everywhere.Head Injury: Closed: General Info (Fijian)Rib Fracture (Fijian)documented in this encounter [facility] Work Phone: Evaluation + Plan note Future Appointments Appointment Date:06/01/2023 01:30:00 PM Scheduled Provider:GARFIELD ALCARAZ DO Location:[facility] Appointment Type:PC OV Follow Up Future Scheduled TestsThyroid Stimulating Hormone 05/26/22Complete Blood Count 05/26/22Vitamin D Level 05/26/22Complete Metabolic Panel 05/26/22 [facility] documented in this encounter [facility] Work Phone: Evaluation note* Diagnosis Closed nondisplaced fracture of proximal phalanx of lesser toe of left foot, initial encounter- Primary Fall, initial encounter [facility] Diagnosis Edema, unspecified type- Primary Essential hypertension Unspecified essential hypertension documented in this encounter [facility]* Diagnosis Coronary artery disease involving [place] coronary artery of [place] heart without angina pectoris- Primary Edema, unspecified type Essential hypertension Unspecified essential hypertension documented in this encounter [facility]* Diagnosis Coronary artery disease involving [place] coronary artery of [place] heart without angina pectoris Edema, unspecified type [facility] N[facility] No data available for this section [facility] Hospital Discharge instructions No data available for this section [facility] Hospital Discharge instructions* Attachments The following attachments cannot be sent through Care Everywhere. * Toe Fracture Discharge Instructions (Fijian) [facility] No data available for this section [facility] Summary Purpose Family History No Family History Records FoundNo Family History Records FoundNo Family History Records FoundNo Family History Records FoundNo Family History Records Found Advance Directives No Advanced Directives Records FoundDocuments on File Type Date Recorded Patient Board Catcher Expl anation Advance Directives and Living Will Advance Directives and Living Will 04/28/2019 9:59 AM DNRCCA [id number] [place] carroll Power of Compressor Service Technician Latest Code Status on File Code Status Date Activated Date Inactivated Comments DNR-CCA 04/25/2019 1:50 PM Full Code 05/01/2018 6:23 AM 05/04/2018 4:40 PM Documents on File Type Date Recorded Patient Board Catcher Expl anation ACP-Advance Directive ACP-Advance Directive 04/28/2019 9:59 AM D NRCCA [id number] Kaaniyah ACP-Power of Compressor Service Technician Latest Code Status on File Code Status Date Activated Date Inactivated Comments DNR-CCA 04/25/2019 1:50 PM 11/21/2020 12:07 PM Documents on File Type Date Recorded Patient Board Catcher Expl anation ACP-Advance Directive ACP-Advance Directive 04/28/2019 9:59 AM D NRCCA [id number] Kaaniyah ACP-Power of Compressor Service Technician Latest Code Status on File Code Status Date Activated Date Inactivated Comments DNR-CCA 04/25/2019 1:50 PM 11/21/2020 12:07 PM Full Code 05/01/2018 6:23 AM 05/04/2018 4:40 PM Documents on File Type Date Recorded Patient Board Catcher Expl anation ACP-Advance Directive ACP-Power of Compressor Service Technician ACP-Advance Directive 04/28/2019 9:59 AM D NRA [id number] Claudinei Documents on File Type Date Recorded Patient Board Catcher Expl anation ACP-Advance Directive 04/28/2019 9:59 AM D NRA [id number] Ka[place]ersoni Discharge Instructions * Attachments The following attachments cannot be sent through Care Everywhere. * Palpitations (Fijian) documented in this encounter History of Present [...] attending request to speak with her primary sinter machine operator (Dr Adams) I facilitated that. Edmundo Marie MD documented in this encounter Assessments Diagnosis Palpitations- Primary Atrial tachycardia, paroxysmal (HCC) Paroxysmal supraventricular tachycardia Diagnosis Atrial tachycardia (HCC) Other specified cardiac dysrhythmias Reason for Referral Status Reason Specialty Diagnoses / Procedures Referre d By Contact Referred To Contact [facility] Diagnoses Atrial tachycardia (HCC) Procedures Event Monitor Kayleen Prakash PA-C [address] [place] [address] Specialty Diagnoses / Procedures Referred By Contac t Referred To Contact Cardiology Diagnoses Coronary artery disease involving [place] coronary artery of [place] heart without angina pectoris Edema, unspecified type Procedures Transthoracic echocardiogram (TTE) complete with contrast, bubble, strain, and 3D PRN NV ECHO TTHRC R-T 2D W/WOM-MODE COMPL SPEC&COLR D NV TTE W OR WO FOL WCON,DOPPLER Kayleen Prakash PA-C [address] [place] [address] Referral ID Status Reason Start Date Expiration Date Visits Re quested Visits Authorized [id number] Closed 12/13/2023 03/11/2024 1 1 Additional Source Comments INFORMATION SOURCE (unrecogn ized section and content) DATE CREATED AUTHOR AUTHOR'S ORGANIZ ATION 09/15/2021 [facility] DATE CREATED AUTHOR AUTHOR'S ORGANIZ ATION 07/24/2022 [facility] DATE CREATED AUTHOR AUTHOR'S ORGANIZ ATION 12/13/2022 [facility] ([place] DATE CREATED AUTHOR AUTHOR'S ORGANIZ ATION 12/15/2023 [facility] Reason for Visit (unrecogniz ed section and [...] Contact Cardiology Diagnoses Coronary artery disease involving [place] coronary artery of [place] heart without angina pectoris Edema, unspecified type Procedures Transthoracic echocardiogram (TTE) complete with contrast, bubble, strain, and 3D PRN NV ECHO TTHRC R-T 2D W/WOM-MODE COMPL SPEC&COLR D NV TTE W OR WO FOL WCON,DOPPLER Kayleen Prakash PA-C [address] [place] [address] Referral ID Status Reason Start Date Expiration Date Visits Re quested Visits Authorized [id number] Closed 12/13/2023 03/11/2024 1 1 Ordered Prescriptions (unrec ognized section and content) Care Teams (unrecognized sec tion and content) Melt Supervisor Relationship Specialty Start Date End Date Garfield Alcaraz DO [address] [place] [id number] PCP - General 07/07/22 Melt Supervisor Relationship Specialty Start Date End Date Garfield Alcaraz DO [address] [place] [phone] PCP - General 07/07/22 Melt Supervisor Relationship Specialty Start Date End Date Garfield Alcaraz DO [address] [place], [place] [phone] PCP - General 07/07/22 Melt Supervisor Relationship Specialty Start Date End Date Garfield Alcaraz DO [address] [place], [place] [phone] PCP - General 07/07/22 Melt Supervisor Relationship Specialty Start Date End Date Garfield Alcaraz DO [address] [place], [place] [phone] PCP - General 07/07/22 Melt Supervisor Relationship Specialty Start Date End Date Garfield Alcaraz DO [address] [place] [phone] PCP - General 07/07/22 Melt Supervisor Relationship Specialty Start Date End Date Garfield Alcaraz DO [address] [place] [phone] PCP - General 07/07/22 Melt Supervisor Relationship Specialty Start Date End Date Garfield Alcaraz DO [address] [place] [phone] PCP - General 07/07/22 Care Team (unrecognized sect ion and content) Care Team Personnel Name: KIERAN, GARFILED DO Position: P4 Physician - Primary Care Member Role: Primary Care Physician Address: Address: [address] [place] [address] Care Team Related Persons Name: DIXON ANTUNEZ Name: YVETTE WADDELL Address: [facility] Care Team Personnel Name: KIERAN GARFIELD Position: P4 Physician - Primary Care Member Role: Primary Care Physician Address: Address: [address] [place] [address] Care Team Related Persons Name: IDALIA ANTUNEZI Name: YVETTE WADDELL Address: [facility] FOR RECORDS PERTAINING TO PATIENTS WHO ARE [...] BE BASED ON THE PRIMARY CLINICAL RECORDS. [facility] [employer] [facility] provides no warranty or guarantee of the accuracy or completeness of information in this document.
--- NOTE | 2024-01-12 16:23 | HP.PCM.HOS_ITS ---
HPI - General General Date of Admission: 01/12/24 Date of Service: 01/12/24 Chief Complaint: Fall with R hip pain HPI Narrative MARCELLA PATHAK, is a 83-year-old female history of depression, COPD, dementia, hypertension who presented to [facility] ED 01/12/2024 after a fall at her assisted living facility. She tripped last night while walking in the living room and landed on her buttocks and back with no head injury or loss of consciousness. She was unable to get back into bed so nurse came in to help her at 630 this morning but she was unable to stand and ambulate due to back and hip pain so EMS was called. Patient found to have nondisplaced fracture of right pubic bone, WBC of 16, and a slight bump in BUN/CR. Given pt unable to ambulate hospitalist contacted for admission for pain control and PT/OT. Pt evaluated at bedside with family members present, patient does not really remember what happened with her fall last night or why she fell but does endorse that she remained on the floor for period of time until this morning, has had the right-sided hip/pubic pain but denies any other acute or focal complaints. Family at bedside endorsed that she has some chronic right knee pain that at times makes it difficult to walk and they suspect that this contributed to her fall. At present reports as long she is at rest she is not having any significant pain and it is primarily present when she moves. Additionally discussed CODE STATUS with patient and family, patient initially said she would want everything done but family reminded her that that was not consistent with her previous wishes and that she is in fact DNR/DNI and after this was mentioned patient agreed that that was indeed the case. [facility] Medical History (Updated 01/12/24 @ 16:[address] Amanda Jeter MD) COPD (chronic obstructive pulmonary disease) Depression HTN (hypertension) Hyperlipemia Osteoarthritis Home Medications alendronate 70 mg tablet mg PO 01/12/24 [History Last Taken Unknown] aspirin 81 mg chewable tablet 01/12/24 [History Last Taken 01/12/24] atorvastatin 20 mg tablet mg 01/12/24 [History Last Taken 01/11/24] calcium carbonate 500 mg-vitamin D3 15 mcg (600 unit) tablet tab PO 01/12/24 [History Last Taken 01/12/24] clonidine HCl 0.1 mg tablet 0.1 mg PO BID 01/12/24 [History Last Taken Unknown] donepezil 10 mg tablet mg 01/12/24 [History Last Taken 01/11/24] fluticasone fur. 100 mcg-umeclid 62.5 mcg-vilant 25 mcg inhalat.powder (Trelegy Ellipta) 1 inh inhalation DAILY 01/12/24 [History Last Taken Unknown] fluticasone furoate 100 mcg-vilanterol 25 mcg/dose inhalation powder (Breo Ellipta) inhalation 01/12/24 [History Last Taken Unknown] lisinopril 40 mg tablet mg 01/12/24 [History Last Taken 01/12/24] montelukast 10 mg tablet mg 01/12/24 [History Last Taken 01/12/24] oxybutynin chloride 10 mg tablet,extended release 24 hr mg PO 01/12/24 [History Last Taken 01/11/24] potassium chloride 20 mEq tablet,extended release meq PO 01/12/24 [History Last Taken Unknown] primidone 50 mg tablet 50 mg PO DAILY 01/12/24 [History Last Taken Unknown] propranolol 80 mg capsule,24 hr,extended release mg PO 01/12/24 [History Last Taken Unknown] torsemide 20 mg tablet 20 mg PO DAILY 01/12/24 [History Last Taken Unknown] venlafaxine 150 mg capsule,extended release 24 hr mg PO 01/12/24 [History Last Taken Unknown] Allergy/AdvReac Type Severity Reaction Status Date / Time Penicillins Allergy Unknown NEEDS Verified 01/12/24 12:15 FOLLOW-UP Social History Smoking Status: Never smoker ROS ROS Narrative General: Denies fever/chills HENT: Denies headache, denies stuffy nose, denies sore throat EYES: Denies changes in vision Resp: Denies cough, denies shortness of breath Cardiac: Denies chest pain GI: Denies abdominal pain, denies changes in bowel, denies nausea/vomiting : Denies changes in urination Extremity: Denies swelling MSK: Denies weakness, has some pain on right hip Neuro: Denies any numbness/tingling Heme: Denies any bleeding or bruising Skin: Denies rashes Psychiatric: No complaints voiced Vital Signs Vital Signs Vital Signs: 01/12/24 12:07 01/12/24 15:32 Temperature 97.5 F L 98.2 F Temperature Source Temporal Pulse Rate 77 73 Respiratory Rate 16 12 Blood Pressure 141/77 H 106/70 Blood Pressure Mean 98 82 Pulse Ox 92 97 Oxygen Delivery Method Room Air Weight Weight: 66 kg Body Mass Index (BMI) 25.0 Physical Exam Narrative General: Alert, no apparent distress HEENT: Atraumatic, normocephalic Eyes: Anicteric, normal conjunctiva, extraocular movements grossly intact Neck: Supple Respiratory: Clear to auscultation bilaterally, normal respiratory effort Cardiovascular: Regular rate and rhythm GI: Soft, nontender, nondistended Extremities: No edema Musculoskeletal: Moving all extremities, right knee is bigger than left knee with chronic OA, not tender to palpation Neuro: No overt focal neurological deficits Skin: No rashes appreciated Psych: Cooperative Results Lab / Micro Data 01/12/24 12:49 01/12/24 12:49 Labs: Laboratory Results - last 24 hr 01/12/24 12:49: WBC 16.0 H, RBC 3.89 L, Hgb 11.1 L, Hct 35.4 L, MCV 91.0, MCH 28.5, MCHC 31.4 L, RDW Std Deviation 49.2 H, RDW Coeff of Laura 14.7 H, Plt Count 166, MPV 9.7, Immature Gran % (Auto) 0.800, Neut % (Auto) 87.3 H, Lymph % (Auto) 6.6 L, [place] % (Auto) 4.7, Eos % (Auto) 0.2, Baso % (Auto) 0.4, Absolute Neuts (auto) 14.0 H, Absolute Lymphs (auto) 1.05, Nucleated RBC % 0, Sodium 142, Potassium 4.3, Chloride 106, Carbon Dioxide 32.0, Anion Gap 4 L, BUN 22 H, Creatinine 1.05 H, Estim Creat Clear Calc 39.28, Est GFR (MDRD) Af Amer 65, Est GFR (MDRD) Non-Af 53 L, BUN/Creatinine Ratio 21.0 H, Glucose 136 H, Calcium 9.4 Imaging Radiology Impression Chest X-Ray 01/12/24 12:36 IMPRESSION: Possible pulmonary nodule in the right midlung; recommend follow-up or CT. Electronically Signed: Erica Acevedo MD at 13:17 EST , Hip/Pelvis X-Ray 01/12/24 12:36 IMPRESSION: Nondisplaced fracture of the right pubic bone. Electronically Signed: Erica Acevedo MD at 13:19 EST , Lumbar Spine X-Ray 01/12/24 12:36 IMPRESSION: No acute fracture or dislocation identified in the lumbar spine. Multilevel degenerative change. Mild scoliosis. Electronically Signed: Erica Acevedo MD at 14:14 EST Reading Location ID and State: [facility] / [place] Tel , Service support , Assessment & Plan Assessment/Plan (1) Closed fracture of single pubic ramus of pelvis: (2) Fall: (3) MOUSTAPHA (acute kidney injury): (4) COPD (chronic obstructive pulmonary disease): PLAN: Plan #Nondisplaced fracture of right pubic bone -Seen on xray -Schedule tylenol -Pain control -Supportive care -PT/OT -Case management consult #MOUSTAPHA -BUN 22 with creatinine 1.05, baseline 0.6-0.7 -Gentle IVF -Hold lisinopril and torsemide -Daily weights, I's and O's -Given patient was down overnight will check CK #Leukocytosis -Pt denies any focal complaints but somewhat poor historian -UA pending -No other focal concerns for infxn # Possible pulmonary nodule -Chest x-ray questioned 8 mm nodule opacity in right midlung and recommended follow up or CT -Can have repeat imaging on d/c if pt/family would like further eval #Hypertension -Presently normotensive, given bump in creatinine we will hold lisinopril -Awaiting med rec completion for further adjustments # COPD -Continue home inhalers #MCI -Continue donepezil -Schedule melatonin qhs # Depression -Venlafaxine, will continue #DVT ppx: lovenox sub q Amanda Jeter MD Time spent in the patient's overall evaluation,decision-making process, review of diagnostic data, adjustment of management, discussion with other providers, nursing nursing and ancillary staff involved in patient's care documentation, 57 Minutes Charges/Coding Visit Charges Inpatient E&M: 71810 Init Hosp L2
--- NOTE | 2024-01-12 17:04 | ED.RN ---
1704: second attempt at calling Rigoberto Tejada for patient update regarding admission with no answer.
--- OUTSIDE RECORDS SUMMARY | 2024-01-12 17:37 | XMS RPT_ITS | CCD ---
Author Name Unknown Address [address] [place] [address] Organization [facility] Care Team Providers Care Windows Server Architect Name Role Phone Garfield Alcaraz Primary Care Provider [phone] Candice Dotson Primary Care Provider Garfield Alcaraz [...] Facility (16 sources) Cephalexin Drug Allergy 06-13-2018 [facility] Work Phone: (7 sources) Penicillin G Drug Allergy 05-24-2018 [facility] Work Phone: (7 sources) Penicillins Propensity to adverse reactions to drug 04-30-2018 [facility] Work Phone: (2 sources) Penicillin; Translations: [penicillin] Drug Allergy [facility] (9 sources) Penicillins Drug Intolerance 04-30-2018 [facility] Medications Current Medications Medication Drug Class(es) Dates Sig (Normalized) Sig (Original) albuterol MDI (90 mcg/inh) CFC free inhalation aerosol (2 sources) Start: 10-07-2021 take 2 puff(s) by inhalation every four hours as needed for wheezing albuterol MDI (90 mcg/inh) CFC free inhalation aerosol 2 puff(s), Inhalation, q4h, PRN as needed for wheezing, # 18 gram(s), 0 Refill(s), Pharmacy: [facility] 1910, Encounter by telehealth for suspected COVID-19, 163, cm, 10/07/21 8:59:00 EST, Height, kg, 10/07/21 8:59:00 EST, Dosing Weight Start Date: 10/07/21 Status: Ordered alendronic acid 70 mg oral tablet (18 sources) Bisphosphonate Start: 09-21-2022 Fosamax 70 mg oral tablet Dose : 70 mg = 1 tab(s), Oral, qWeek, # 13 tab(s), 3 Refill(s), Pharmacy: [facility], 161.5, cm, 05/26/22 7:57:00 EDT, Height, kg, [...] qDay, # 90 tab(s), 3 Refill(s), Pharmacy: [facility], 161.5, cm, 05/26/22 7:57:00 EDT, Height, kg, 05/26/22 7:57:00 EDT, Dosing Weight Start Date: 08/29/22 Status: Ordered Completed/Discontinued Medications Medication Drug Class(es) Dates Sig (Normalized) Sig (Original) fluconazole 150 mg oral tablet (2 sources) Azole Antifungal Start: 11-24-2022 End: 11-24-2022 Diflucan 150 mg oral tablet Dose : 150 mg = 1 tab(s), Oral, qDay, # 1 tab(s), 0 Refill(s), Pharmacy: [facility]/pharmacy #[id number], 161.5, cm, 11/24/22 14:22:00 EST, Height, [...] Coronary arteriosclerosis; Translations: [Atherosclerotic heart disease of jackson coronary artery without angina pectoris] Onset: 12-31-2020 [...] lity 12-13-2023 14:51-0500 Body height 160 cm [employer] Work Phone: [employer] 12-13-2023 14:51-0500 Body mass index (BMI) [Ratio] 24.52 kg/m2 [employer] Work Phone: [employer] 12-13-2023 14:51-0500 Body weight 62.78 kg Kayleen Prakash PA-C Work Phone: [facility] 11-23-2023 15:15-0500 Body height 160 cm Bhupendra Lamas MD Work Phone: [facility] 11-23-2023 15:15-0500 Body mass index (BMI) [Ratio] 24.52 kg/m2 Bhupendra Lamas MD Work Phone: [facility] 11-23-2023 15:15-0500 Body weight 62.78 kg Bhupendra Lamas MD Work Phone: [facility] 11-23-2023 15:15-0500 Diastolic blood pressure 80 mm[Hg] Bhupendra Lamas MD Work Phone: [facility] 11-23-2023 15:15-0500 Heart rate 68 /min Bhupendra Lamas MD Work Phone: [facility] 11-23-2023 15:15-0500 Respiratory rate 16 /min Bhupendra Lamas MD Work Phone: [facility] 11-23-2023 15:15-0500 SaO2% (BldA) [Mass fraction] 96 % Bhupendra Lamas MD Work Phone: [facility] 11-23-2023 15:15-0500 Systolic blood pressure 150 mm[Hg] Bhupendra Lamas MD Work Phone: [facility] 03-06-2023 11:24-0400 Body temperature 96.6 [degF] Corby Mudrakola DO Work Phone: [facility] 03-06-2023 11:24-0400 Diastolic blood pressure 87 mm[Hg] Corby Mudrakola DO Work Phone: [facility] 03-06-2023 11:24-0400 Heart rate 56 /min Corby Mudrakola DO Work Phone: [facility] 03-06-2023 11:24-0400 Respiratory rate 16 /min Corby Mudrakola DO Work Phone: [facility] 03-06-2023 11:24-0400 SaO2% (BldA) [Mass fraction] 97 % Corby Barron DO Work Phone: [facility] 03-06-2023 11:24-0400 Systolic blood pressure 166 mm[Hg] Corby Barron DO Work Phone: [facility] 03-06-2023 11:24-0400 Body mass index (BMI) [Ratio] 21.28 kg/m2 Corby Barron DO Work Phone: [facility] 03-06-2023 11:24-0400 Body weight 56.25 kg Corby Barron DO Work Phone: [facility] 05-13-2022 14:20-0400 Diastolic blood pressure 89 mm[Hg] Candice Dotson MEDICAL PHYSICS RESEARCHER - GRANITE CUTTER APPRENTICE Work Phone: [facility] 05-13-2022 14:20-0400 Heart rate 65 /min Candice Dotson MEDICAL PHYSICS RESEARCHER - GRANITE CUTTER APPRENTICE Work Phone: [email or web address] 05-13-2022 14:20-0400 Respiratory rate 18 /min Candice Dotson MEDICAL PHYSICS RESEARCHER - GRANITE CUTTER APPRENTICE Work Phone: [email or web address] 05-13-2022 14:20-0400 SaO2% (BldA) [Mass fraction] 98 % Candice Dotson MEDICAL PHYSICS RESEARCHER - GRANITE CUTTER APPRENTICE Work Phone: [facility] 05-13-2022 14:20-0400 Systolic blood pressure 193 mm[Hg] Candice Dotson MEDICAL PHYSICS RESEARCHER - GRANITE CUTTER APPRENTICE Work Phone: [facility] 05-13-2022 12:52-0400 Body temperature 97 [degF] Candice Dotson MEDICAL PHYSICS RESEARCHER - GRANITE CUTTER APPRENTICE Work Phone: [facility] 11-21-2020 18:30-0500 BP Diastolic 89 mm[Hg] [employer] [facility] , [place] 11-21-2020 18:30-0500 BP Systolic 151 mm[Hg] [facility] [place] 11-21-2020 18:30-0500 Pulse (Heart Rate) 90 /min Arnoldo Lopez [facility], [place] 11-21-2020 18:30-0500 Pulse Oximetry 98 % Arnoldo Lopez [facility] [place] 11-21-2020 18:30-0500 Respiratory Rate 18 /min Arnoldo Lopez [facility], [place] 11-21-2020 12:10-0500 BMI (Body Mass Index) 19.97 kg/m2 Arnoldo Ennis [facility], [place] 11-21-2020 12:10-0500 Body Temperature 96.4 [degF] Arnoldo Lopez [facility], [place] 11-21-2020 12:10-0500 Body weight 54.43 kg Arnoldo Lopez [place], [place] 11-21-2020 12:10-0500 Height 165.1 cm Arnoldo Lopez [place] Encounters Encounter Date Encounter Type Care Provider Facility Start: 12-13-2023 End: 12-14-2023 [facility] Start: 12-13-2023 End: 12-13-2023 Subsequent hospital visit by physician Kayleen Prakash PA-C Work Phone: [facility] Non-Invasive Cardiology Procedures Date Procedure Procedure Detail [...] procedure 02/20/2024 3:30 PM EDT Office Visit [facility] Cardiology [address] [place] [address] Kayleen Prakash PA-C [address] [place] [address] [facility] Start: 01-22-2024 End: 01-22-2024 Patient encounter procedure 01/22/2024 2:45 PM EST Office Visit [facility] Geriatrics [address] [place] [phone] Adelita Quezada, MEDICAL PHYSICS RESEARCHER - GRANITE CUTTER APPRENTICE [address] [place] [address] [facility] Geriatrics Start: 01-13-2024 Depresssion Monitoring Depresssion Monitoring [facility] Start: 12-13-2023 End: 12-13-2023 Patient encounter procedure 12/13/2023 3:00 PM EST Appointment [facility] Non-Invasive Cardiology [address] [place] [phone] Kayleen Prakash PA-C [address] [place], [place] [address] [facility] Non-Invasive Cardiology Start: 11-23-2023 End: 11-23-2023 Patient encounter procedure 11/23/2023 3:15 PM EST Office Visit [facility] Cardiology [address] [facility] [address] [place] [address] Bhupendra Lamas MD [address] [facility] [address] [place] [address] [facility] Start: 11-20-2023 End: 11-13-2024 Basic metabolic 1998 panel - Serum or Plasma Basic metabolic panel Lab Routine Edema, unspecified type Essential hypertension Expected: 11/20/2023 (Approximate), Expires: 11/13/2024 [facility] Work Phone: Immunizations Immunization Date Immunization Notes Care Provider Fa cility 11-24-2022 COVID-19, mRNA, LNP- S, bivalent booster, PF, 30 mcg/0.3 mL dose; Translations: [BitGravity COVID-19 (12y+) Bivalent Booster Vaccine PF] DR GARFIELD ALCARAZ DO [facility] 11-24-2022 influenza, injectabl e, quadrivalent, contains preservative; Translations: [Fluarix PF Quadrivalent ] DR GARFIELD ALCARAZ DO [facility] 11-24-2022 influenza virus vacc ine, unspecified formulation Adelita Quezada MEDICAL PHYSICS RESEARCHER - GRANITE CUTTER APPRENTICE Work Phone: [facility] 05-26-2022 COVID-19, mRNA, LNP- S, PF, 100 mcg or 50 mcg dose; Translations: [Moderna COVID-19 Vaccine] DR GARFIELD ALCARAZ DO [facility] 11-29-2021 COVID-19, mRNA, LNP- S, PF, 100 mcg or 50 mcg dose; Translations: [Moderna COVID-19 Vaccine] DR GARFIELD ALCARAZ DO [facility] 05-27-2021 pneumococcal polysaccharide vaccine, 23 valent; Translations: [Pneumovax 23] DR GARFIELD ALCARAZ DO [facility] 01-27-2021 SARS-CoV-2 (COVID-19 ) Ad26 vaccine, recombinant DR GARFIELD ALCARAZ DO [facility] Payers Date Payer Category Payer Medicaid [employer] U[employer] MEDICAID ONLY [id number] 2023-Present [address] [place] [address] Medicaid HMO [id number] 2023 Medicare [id number] 2022 Medicare [id number] 2019 Medicaid [id number] 2019 Private Health Insurance [facility] DUAL xxxxxxxxx 2019-Present [address] [place] [address] xxxxxxxxx [id number] 2019 Private Health Insurance [id number] 1942 Unknown [id number] 1942 Unknown [id number] 1940 Unknown [id number] Social History Date Type Detail Facility Start: 05-14-2020 End: 09-25-2022 Tobacco smoking status [facility] Former smoker [facility] End: 11-19-2000 History of tobacco use Current smoker [facility] Work Phone: Start: 05-14-2020 End: 11-23-2023 Alcohol intake Current drinker of alcohol (finding) [facility] Work Phone: Start: 10-18-2018 Alcohol Comment occasionally [facility] Work Phone: Start: 1940 Sex Assigned At Not on file S [employer] Work Phone: Start: 05-14-2020 End: 09-25-2022 Tobacco use and exposure Never used [employer] Start: 05-03-2022 End: 07-13-2023 Exposure to SARS-CoV-2 (event) Not sure [employer] Start: 05-13-2022 End: 07-13-2023 Alcohol intake [facility] End: 11-19-2000 History of tobacco use Cigarette Smoker [facility] Work Phone: Sex Assigned At Sex [facility] Start: 09-28-2022 Alcohol Comment occ [facility] Start: 07-13-2023 End: 11-23-2023 Tobacco use panel [facility] Clinical Notes 05-13-2022 to 11-23-2023 Bhupendra Lamas MD - 11/23/2023 3:15 PM aMtt Prakash PA-C - 11/13/2023 9:12 AM ESTTelej carlos Samuels - Kayleen Prakash PA-C - 11/13/2023 9:11 AM Reshma Bruno - 03/06/2023 12:54 PM EDT Note Date & Type Note Facility 11-23-2023 History of Present illness Narrative [facility] Cardiology [facility] C[facility] [address] [facility] [address] Dept: [phone] Dept Visit type: Established : 1940 Chief [...] and Plan: 1. 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 Edema, unspecified [...] verapamil with this. documented in this encounter [facility] 11-13-2023 History of Present illness Narrative Follow-up BMP ordered documented in this encounter [facility] 11-13-2023 Telephone encounter Note I called and spoke with Rachel regarding the labs that were sent over from her mom's facility. BMP and CBC appears stable. I received a phone number of [phone] to call them to order another follow-up BMP to be completed November 20. She then has follow-up with Dr. Lamas on November 23. I left a message requesting the blood work to be completed, and asking for a phone call back with any questions. [facility] 11-13-2023 Miscellaneous Notes I called and spoke with Rachel regarding the labs that were sent over from her mom's facility. BMP and CBC appears stable. I received a phone number of [phone] to call them to order another follow-up BMP to be completed November 20. She then has follow-up with Dr. Lamas on November 23. I left a message requesting the blood work to be completed, and asking for a phone call back with any questions. documented in this encounter [facility] 07-24-2023 Note Addended by: JULIO FOX on: 07/24/2023 02:54 PM Modules accepted: Orders [facility] 07-24-2023 Note Addended by: JULIO FOX on: 07/24/2023 02:54 PM Modules accepted: Orders [facility] 07-24-2023 Note Addended by: JULIO FOX on: 07/24/2023 02:54 PM Modules accepted: Orders [facility] 07-24-2023 Miscellaneous Notes Addended by: JULIO RAY on: 07/24/2023 02:54 PM Modules accepted: Orders Spoke to Rosie with [facility]. Gave verbal order for Propranolol 80 mg BID and Amlodipine 5 mg daily. Stop Diltiazem. She will hand write order and mail it to our office for Dr. Lamas to sign. MAR updated. Rosie from the [place] office is returning your call. Please call her back at [phone] Call and left message for pt's nurse to please call the office back for new orders from Dr. Lamas regarding the pts increased tremors. Spoke to Rosie at [facility]. She states pt tremors have been getting [...] PT having tremors. documented in this encounter [facility] 07-24-2023 Telephone encounter Note Spoke to Rosie with [facility]. Gave verbal order for Propranolol 80 mg BID and Amlodipine 5 mg daily. Stop Diltiazem. She will hand write order and mail it to our office for Dr. Lamas to sign. MAR updated. [facility] 07-24-2023 Telephone encounter Note Rosie from the [place] office is returning your call. Please call her back at [phone] [facility] 07-20-2023 Telephone encounter Note Call and left message for pt's nurse to please call the office back for new orders from Dr. Lamas regarding the pts increased tremors. [facility] 07-19-2023 Telephone encounter Note Spoke to Rosie at [facility]. She states pt tremors have been getting worse. Rosie states pt is having a hard time putting her make up on. Per Dr. Lamas note from 06/11/23 if pt tremors get worse he will resume the Propranolol, stop the Diltiazem and add Amlodipine. Will review with JDR and call facility back with instructions. [facility] 07-19-2023 Telephone encounter Note LM on VM for Rosie to call office. [facility] 07-19-2023 Telephone encounter Note Please call Rosie about PT having tremors. [facility] 07-16-2023 Telephone encounter Note Rx sent to pharmacy. [facility] 07-16-2023 Miscellaneous Notes Rx sent to pharmacy. Name of caller: Maria L Contact phone number: [phone] Relationship to Patient: From [facility] Provider: Adelita Quezada Practice: [facility] Chief Complaint/Reason for Call: Maria L called Xiomara back asking if the medication can be sent to Skilled care, fax number [phone] Best time of day caller can be [...] refill to. Name of caller: Rosie from [facility] Contact phone number: [phone] Relationship to Patient: Rosie from [facility] Provider: Adelita Quezada Practice: [facility] Chief Complaint/Reason for Call: Rosie from [facility] stated that the patient was already on the medication donepezil (Aricept) 10 MG tablet. Please advise. Best time of day caller can be reached: any Patient advised that office/PCP has 24-48 business hours to return their call: No documented in this encounter [facility] 07-13-2023 Telephone encounter Note Name of caller: Maria L Contact phone number: [phone] Relationship to Patient: From [facility] Provider: Adelita Quezada Practice: [facility] Chief Complaint/Reason for Call: Maria L called Xiomara yeni asking if the medication can be sent to Skilled care, fax number [phone] Best time of day caller can be reached: Any Patient advised that office/PCP has 24-48 business hours to return their call: Yes [facility] 07-13-2023 Telephone encounter Note Left message on Nurses Line requesting clarification as to which pharmacy this medication needs sent to. [facility] 07-13-2023 Telephone encounter Note Noted. That prescription was a refill for the donepezil, not a duplicate. Daughter wasn't sure what pharmacy I should send refill to. [facility] 07-13-2023 Telephone encounter Note Name of caller: Rosie from [facility] Contact phone number: [phone] Relationship to Patient: Rosie from [facility] Provider: Adelita Quezada Practice: [facility] Chief Complaint/Reason for Call: Rosie from [facility] stated that the patient was already on the medication donepezil (Aricept) 10 MG tablet. Please advise. Best time of day caller can be reached: any Patient advised that office/PCP has 24-48 business hours to return their call: No [facility] 03-06-2023 Emergency department Note Post op shoe placed on left foot. MSP's intact before and after application. Pt tolerated well. Maureen Bruno 03/06/23 1254 [facility] 03-06-2023 Emergency department Note Post op shoe placed on left foot. MSP's intact before and after application. Pt tolerated well. Maureen Bruno 03/06/23 1254 documented in this encounter [facility] 12-05-2022 Note . MICRO - Microbiology PROCEDURE: [...] Locations *1: This test was performed at: [facility], [address] [place] [address], [id number] , [facility] ([place]) 05-13-2022 Hospital Discharge instructions Toi Cooper PA-C [...] through Care Everywhere.Head Injury: Closed: General Info (Bhutanese)Rib Fracture (Bhutanese)documented in this encounter [facility] Work Phone: Evaluation + Plan note Future Appointments Appointment Date:06/01/2023 01:30:00 PM Scheduled Provider:GARFIELD ALCARAZ DO Location:[facility] Appointment Type:PC OV Follow Up Future Scheduled TestsThyroid Stimulating Hormone 05/26/22Complete Blood Count 05/26/22Vitamin D Level 05/26/22Complete Metabolic Panel 05/26/22 [facility] documented in this encounter [facility] Work Phone: Evaluation note* Diagnosis Closed nondisplaced fracture of proximal phalanx of lesser toe of left foot, initial encounter- Primary Fall, initial encounter [facility] Diagnosis Edema, unspecified type- Primary Essential hypertension Unspecified essential hypertension [facility] Diagnosis 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- Primary Edema, unspecified type Essential hypertension Unspecified essential hypertension [facility]* Diagnosis 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 anation Advance Directives and Living Will Advance Directives and Living Will 04/28/2019 9:59 AM DNRCCA [id number] [place] carroll Power of Herb Doctor Latest Code Status on File Code Status Date Activated Date Inactivated Comments DNR-CCA 04/25/2019 1:50 PM Full Code 05/01/2018 6:23 AM 05/04/2018 4:40 PM Documents on File Type Date Recorded 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 ACP-Advance Directive ACP-Advance Directive 04/28/2019 9:59 AM D NRCCA [id number] Kaaniyah ACP-Power of Herb Doctor Latest Code Status on File Code Status Date Activated Date Inactivated Comments DNR-CCA 04/25/2019 1:50 PM 11/21/2020 12:07 PM Documents on File Type Date Recorded 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 ACP-Advance Directive ACP-Advance Directive 04/28/2019 9:59 AM D [facility] [id number] Kaaniyah ACP-Power of Herb Doctor Latest Code Status on File Code Status Date Activated Date Inactivated Comments DNR-CCA 04/25/2019 1:50 PM 11/21/2020 12:07 PM Full Code 05/01/2018 6:23 AM 05/04/2018 4:40 PM Documents on File Type Date Recorded 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 * Palpitations (Bhutanese) documented in this encounter History of Present [...] attending request to speak with her primary railroad car checker (Dr Adams) I facilitated that. Edmundo Marie [...] Prakash PA-C 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 [place] [address] Referral ID Status Reason Start Date Expiration Date Visits Re quested Visits Authorized [id number] Closed 12/13/2023 03/11/2024 1 1 Additional Source Comments INFORMATION SOURCE (unrecogn ized section and content) DATE CREATED AUTHOR AUTHOR'S ORGANIZ ATION 09/15/2021 [facility] DATE CREATED AUTHOR AUTHOR'S ORGANIZ ATION 07/24/2022 [facility] DATE CREATED AUTHOR AUTHOR'S ORGANIZ ATION 12/13/2022 [facility] ([place] DATE CREATED AUTHOR AUTHOR'S ORGANIZ ATION 12/15/2023 [facility] Reason for Visit (unrecogniz ed section [...] Contact Cardiology Diagnoses 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 [place] [address] Referral ID Status Reason Start Date Expiration Date Visits Re quested Visits Authorized [id number] Closed 12/13/2023 03/11/2024 1 1 Ordered Prescriptions (unrec ognized section and content) Care Teams (unrecognized sec tion and content) Windows Server Architect Relationship Specialty Start Date End Date Garfield Alcaraz DO [address] [place] [id number] PCP - General 07/07/22 Windows Server Architect Relationship Specialty Start Date End Date Garfield Alcaraz DO [address] [place] [phone] PCP - General 07/07/22 Windows Server Architect Relationship Specialty Start Date End Date Garfield Alcaraz DO [address] [place], [place] [phone] PCP - General 07/07/22 Windows Server Architect Relationship Specialty Start Date End Date Garfield Alcaraz DO [address] [place], [place] [phone] PCP - General 07/07/22 Windows Server Architect Relationship Specialty Start Date End Date Garfield Alcaraz DO [address] [place], [place] [phone] PCP - General 07/07/22 Windows Server Architect Relationship Specialty Start Date End Date Garfield Alcaraz DO [address] [place] [phone] PCP - General 07/07/22 Windows Server Architect Relationship Specialty Start Date End Date Garfield Alcaraz DO [address] [place] [phone] PCP - General 07/07/22 Windows Server Architect Relationship Specialty Start Date End Date Garfield Alcaraz DO [address] [place] [phone] PCP - General 07/07/22 Care Team (unrecognized sect ion and content) Care Team Personnel Name: KIERAN, GARFIELD DO Position: P4 Physician - Primary Care Member Role: Primary Care Physician Address: Address: [address] [place] [address] Care Team Related Persons Name: DIXON ANTUNEZ Name: YVETTE WADDELL Address: [facility] Care Team Personnel Name: KIERAN GARFIELD Position: P4 Physician - Primary Care Member Role: Primary Care Physician Address: Address: [address] [place] [address] Care Team Related Persons Name: IDALIA ANTUNEZI Name: YVETTE WADDELL Address: [facility] FOR RECORDS PERTAINING TO PATIENTS WHO ARE [...] BE BASED ON THE PRIMARY CLINICAL RECORDS. [facility]. provides no warranty or guarantee of the accuracy or completeness of information in this document.
[2024-01-12 18:00] VITALS: BMI 25.0
[2024-01-12 18:14] LABS: CPK Total, Creatine Kinase 125 U/L (26-192)
[2024-01-12] MEDS: 0.9% Normal Saline (1000mL) 1,000 ML 50 ML IV (18:17)
[2024-01-12 18:18] VITALS: BP 157/84; PULSE 76; RESP 18; TEMP 36.6; O2SAT 99
[2024-01-12 20:41] VITALS: BP 123/57; PULSE 86; RESP 16; TEMP 36.8; O2SAT 98
[2024-01-12 20:43] VITALS: PULSE 85; RESP 18; O2SAT 95
[2024-01-12] MEDS: Ipratropium/Albuterol Sulfate 3 ML AMPUL.NEB INHALATION (20:43)
[2024-01-12] MEDS: Budesonide Respules 0.5 MG/2 ML AMPUL.NEB. INHALATION (20:43)
[2024-01-12] MEDS: Atorvastatin Calcium 20 MG Tablet PO (20:47)
[2024-01-12] MEDS: MELATONIN 10 MG TABLET PO (20:48)
[2024-01-12] MEDS: Donepezil HCl 10 MG Tablet PO (20:48)
[2024-01-12] MEDS: cloNIDine HCl 0.1 MG Tablet 0.5 MG PO (20:51)
[2024-01-13] VITALS (12 sets, daily range): BP systolic 89–117; BP diastolic 43–68; PULSE 66–88; RESP 16–18; TEMP 36.5–37.1; O2SAT 95–100; BMI 24.8
[2024-01-13 04:10] LABS: Absolute Lymphocyte Count 1.14 X10^3/uL (0.83-4.51); Absolute Neutrophil Count 9.3 X10^3/uL (2.0-7.7); Basophil# 0.06 X10^3/uL; Basophil% 0.5 % (0-1); Eosinophil# 0.29 X10^3/uL; Eosinophils% 2.5 % (0-5); Hemoglobin 7.6 g/dL (12.0-15.0); Lymphocyte # 1.14 X10^3/ul (0.83-4.51); Lymphocyte % 9.8 % (19-41); Mean Corp Hgb Conc 31.7 g/dL (32-36); Mean Corpuscular Hgb 28.6 pg (27.0-32.0); Mean Corpuscular Volume 90.2 fL (81-99); Mean Platelet Vol. 9.6 fl (6.2-12.0); Monocyte# 0.69 X10^3/uL; Monocyte% 5.9 % (0-10); NRBC Flagged by Analyzer 0 % (0-5); Neutrophil # 9.33 X10^3/uL (2.7-7.7); Neutrophil % 80.4 % (47-70); Platelet Count 130 K/mm3 (150-450); RBC Distribution Width CV 14.9 % (11.6-14.6); RBC Distribution Width SD 48.4 fl (35.1-43.9); Red Blood Count 2.66 M/mm3 (4.2-5.4); White Blood Count 11.6 K/mm3 (4.4-11.0)
[2024-01-13 04:32] LABS: Anion Gap 4 (5-15); BUN 36 mg/dL (7-18); BUN/Creat Ratio 21.3 RATIO (10-20); Calcium,Total 8.1 mg/dL (8.5-10.1); Chloride 103 mmol/L (98-107); Creatinine, Serum 1.69 mg/dL (0.55-1.02); EST Glomerular Filtration Rate 31 mL/min (>60); Est Glom Filt Rate - Afr Amer 37 mL/min (>60); Estimated Creatinine Clearance 24.41 ml/min; Glucose 129 mg/dL (74-106); Potassium 4.3 mmol/L (3.5-5.1); Sodium Level 135 mmol/L (136-145)
[2024-01-13] MEDS: Acetaminophen 500 MG Tablet 1000 MG PO ×3 (05:09→22:26)
[2024-01-13 05:10] LABS: Bacteria 0 SEEN /hpf (None Seen); Mucous, Urine 0 SEEN /hpf (<or=2+); Red Blood Cells-Urine 0 SEEN /hpf (0-5); Squamous Epithelial Cells - UA 0 SEEN /hpf (5-10); White Blood Cells 0 SEEN /hpf (0-5)
[2024-01-13 05:11] LABS: Color, Urine Yellow (Yellow); Glucose, Dipstick Normal (Normal); Ketone-Dipstick Negative (Negative); Leukocyte Esterase-Dipstick Negative /ul (Negative); Nitrite-Dipstick Negative (Negative); Occult Blood-Urine Negative /ul (Negative); Protein-Dipstick Negative (Negative); Specific Gravity, Urine 1.015 (1.002-1.030); Urine Bilirubin Dipstick Negative (Negative); Urine Clarity Clear (Clear); Urine Urobilinogen Normal (Normal)
[2024-01-13] MEDS: 0.9% Normal Saline (1000mL) 1,000 ML 125 ML IV ×3 (08:25→23:52)
[2024-01-13] MEDS: Aspirin 81 MG TAB.CHEW PO (08:35)
[2024-01-13] MEDS: Primidone 50 MG Tablet PO (08:37)
[2024-01-13] MEDS: Venlafaxine XR 150 MG Capsule PO (08:37)
[2024-01-13] MEDS: 0.9% Normal Saline (1000mL) 1,000 ML 999 ML IV (10:48)
--- NOTE | 2024-01-13 12:20 | PN_ITS ---
Subjective Subjective Patient seen and examined. She was quite confused. She was admitted with a complaint of mechanical fall. She denied any dizziness, lightheadedness, nausea, vomiting or any other symptoms. Review of systems is otherwise negative. BP is running low. Objective Data Objective Data Vital Signs: Vital Signs Temp Pulse Resp BP Pulse Ox O2 Del Method O2 Flow Rate 98.5 F 67 18 96/50 L 99 Nasal Cannula 2 01/13/24 08:23 01/13/24 09:59 01/13/24 08:23 01/13/24 09:59 01/13/24 08:23 01/13/24 08:23 01/13/24 08:23 Oxygen Flow Rate (L/min) 2 Oxygen Delivery Method Nasal Cannula Weight: 145 lb 8.081 oz Body Mass Index (BMI) 24.8 Intake & Output: Intake and Output for Last 24 Hours 01/11/24 01/12/24 01/13/24 23:59 23:59 23:59 Intake Total 500 / 500 2408.75 / 2408.75 Output Total 500 / 500 Balance 500 / 500 1908.75 / 1908.75 Lab / Micro Data 01/13/24 03:53 01/13/24 03:53 Labs: Laboratory Results - last 24 hr 01/12/24 04:55: Urine Color Yellow, Urine Clarity Clear, Urine pH 6.0, Ur Specific [place] 1.015, Urine Protein Negative, Urine Glucose (UA) Normal, Urine Ketones Negative, Urine Occult Blood Negative, Urine Nitrite Negative, Urine Bilirubin Negative, Urine Urobilinogen Normal, Ur Leukocyte Esterase Negative, Urine RBC 0 SEEN, Urine WBC 0 SEEN, Ur Squamous Epith Cells 0 SEEN, Urine Bacteria 0 SEEN, Urine Mucus 0 SEEN 01/12/24 12:49: WBC 16.0 H, RBC 3.89 L, Hgb 11.1 L, Hct 35.4 L, MCV 91.0, MCH 28.5, MCHC 31.4 L, RDW Std Deviation 49.2 H, RDW Coeff of Laura 14.7 H, Plt Count 166, MPV 9.7, Immature Gran % (Auto) 0.800, Neut % (Auto) 87.3 H, Lymph % (Auto) 6.6 L, Davis % (Auto) 4.7, Eos % (Auto) 0.2, Baso % (Auto) 0.4, Absolute Neuts (auto) 14.0 H, Absolute Lymphs (auto) 1.05, Nucleated RBC % 0, Sodium 142, Potassium 4.3, Chloride 106, Carbon Dioxide 32.0, Anion Gap 4 L, BUN 22 H, Creatinine 1.05 H, Estim Creat Clear Calc 39.28, Est GFR (MDRD) Af Amer 65, Est GFR (MDRD) Non-Af 53 L, BUN/Creatinine Ratio 21.0 H, Glucose 136 H, Calcium 9.4, Total Creatine Kinase 125 01/13/24 03:53: WBC 11.6 H, RBC 2.66 L, Hgb 7.6 L, Hct 24.0 L, MCV 90.2, MCH 28.6, MCHC 31.7 L, RDW Std Deviation 48.4 H, RDW Coeff of Laura 14.9 H, Plt Count 130 L, MPV 9.6, Immature Gran % (Auto) 0.900, Neut % (Auto) 80.4 H, Lymph % (Auto) 9.8 L, Davis % (Auto) 5.9, Eos % (Auto) 2.5, Baso % (Auto) 0.5, Absolute Neuts (auto) 9.3 H, Absolute Lymphs (auto) 1.14, Nucleated RBC % 0, Sodium 135 L , Potassium 4.3, Chloride 103, Carbon Dioxide 28.0, Anion Gap 4 L, BUN 36 H, Creatinine 1.69 H, Estim Creat Clear Calc 24.41, Est GFR (MDRD) Af Amer 37 L, Est GFR (MDRD) Non-Af 31 L, BUN/Creatinine Ratio 21.3 H, Glucose 129 H, Calcium 8.1 L Radiography Diagnostic Testing: Radiology Impression Chest X-Ray 01/12/24 12:36 IMPRESSION: Possible pulmonary nodule in the right midlung; recommend follow-up or CT. Electronically Signed: Erica Acevedo MD at 13:17 EST Reading Location ID and State: [facility] / [place] Tel , Service support , Hip/Pelvis X-Ray 01/12/24 12:36 IMPRESSION: Nondisplaced fracture of the right pubic bone. Electronically Signed: Erica Acevedo MD at 13:19 EST , Lumbar Spine X-Ray 01/12/24 12:36 IMPRESSION: No acute fracture or dislocation identified in the lumbar spine. Multilevel degenerative change. Mild scoliosis. Electronically Signed: Erica Acevedo MD at 14:14 EST , Physical Exam Const alert and no apparent distress General Appearance: cooperative Orientation / Consciousness: confused HEENT normocephalic and head/scalp atraumatic Mouth: dry mucous membranes Eyes PERRL and EOMs intact bilaterally Neck no lymphadenopathy and supple Lymph Lymphatic: no lymphadenopathy noted and no lymphedema noted Resp normal respiratory effort, normal air movement and clear to auscultation bilaterally Cardio Cardio Narrative: diminished breath sounds bibasally, no wheezes or crackles. On room air. GI normal to inspection, nondistended, normoactive bowel sounds, soft to palpation and non-tender Extremity normal capillary refill, no clubbing, cyanosis or edema and no calf tenderness General Extremity: no tenderness to palpation of joints or extremities Skin General Skin Exam: no breakdown Neuro CN's II-XII intact bilaterally, no focal motor deficits and no sensory deficits noted Motor Exam: general weakness Psych Psych Narrative: confused. Assessment & Plan Assessment/Plan (1) MOUSTAPHA (acute kidney injury): (2) Fall: (3) Closed fracture of single pubic ramus of pelvis: PLAN: Plan #Nondisplaced fracture of the right pubic bone due to mechanical fall. * had mechanical fall and pelvic xray showed fracture of the right pubic bone * Pt/OT on board. * will be nonoperative. Fall precautions * * #MOUSTAPHA * Cr was 1.05 on admission. Now up to 1.69. * lisinopril and torsemide on hold * ISS. Accuchecks ACHS * continue hydration with IVF * #Anemia * hb is 7.6. was 11 on admission. However, all cell indices have fallen, ie wbc and platelets were low. * Will trend. May be hemodilutional. * Check stool for occult blood. * if it drops further, will get GI consult * #COPD: not in exacerbation. Breathing treatment with bronchodilators. #Hypotension * BP is running low with BP in the 90s systolic * will hold BP meds and hydrate with iVF. Given a bolus of 1L of NS. * #Hyperlipidemia: on statin #Depression; on venlafaxine #Pulmonary nodule * CXR showed possible 8mm nodule in the right midlung. TO CT for further evaluation. * DVT prophylaxis: SCDs. # Charges/Coding Visit Charges Inpatient E&M: 67581 Subs Hosp L3
[2024-01-13] MEDS: Ipratropium/Albuterol Sulfate 3 ML AMPUL.NEB INHALATION ×2 (13:04→19:39)
[2024-01-13] MEDS: Budesonide Respules 0.5 MG/2 ML AMPUL.NEB. INHALATION ×2 (13:09→19:39)
--- NOTE | 2024-01-13 14:47 | NURSING ---
unable to void, states abd tenderness when palpated. will cath
[2024-01-13] MEDS: oxyCODONE 5 MG Tablet PO (16:13)
[2024-01-13] MEDS: Senna/Docusate Sodium 1 Tablet 2 TABLET PO (16:13)
[2024-01-13] MEDS: Calcium Carb/Vitamin D 1 TABLET Tablet PO (16:13)
[2024-01-13] MEDS: Donepezil HCl 10 MG Tablet PO (22:27)
[2024-01-13] MEDS: Atorvastatin Calcium 20 MG Tablet PO (22:27)
[2024-01-13] MEDS: MELATONIN 10 MG TABLET PO (22:27)
[2024-01-13] MEDS: Tolterodine Tartrate 2 MG CAP.SA PO (22:28)
[2024-01-14] VITALS (10 sets, daily range): BP systolic 137–157; BP diastolic 65–79; PULSE 68–114; RESP 16–18; TEMP 36.6–37; O2SAT 85–100; BMI 24.9
[2024-01-14] MEDS: oxyCODONE 5 MG Tablet PO (01:17)
[2024-01-14] MEDS: Acetaminophen 500 MG Tablet 1000 MG PO ×3 (05:16→21:24)
[2024-01-14 05:23] LABS: Absolute Lymphocyte Count 1.12 X10^3/uL (0.83-4.51); Absolute Neutrophil Count 8.2 X10^3/uL (2.0-7.7); Basophil# 0.04 X10^3/uL; Basophil% 0.4 % (0-1); Eosinophil# 0.37 X10^3/uL; Eosinophils% 3.5 % (0-5); Hematocrit 25.1 % (37-47); Hemoglobin 7.7 g/dL (12.0-15.0); Lymphocyte # 1.12 X10^3/ul (0.83-4.51); Lymphocyte % 10.7 % (19-41); Mean Corp Hgb Conc 30.7 g/dL (32-36); Mean Corpuscular Hgb 28.3 pg (27.0-32.0); Mean Corpuscular Volume 92.3 fL (81-99); Mean Platelet Vol. 10.1 fl (6.2-12.0); Monocyte# 0.72 X10^3/uL; Monocyte% 6.9 % (0-10); NRBC Flagged by Analyzer 0 % (0-5); Neutrophil % 77.9 % (47-70); Platelet Count 123 K/mm3 (150-450); RBC Distribution Width SD 50.7 fl (35.1-43.9); Red Blood Count 2.72 M/mm3 (4.2-5.4); White Blood Count 10.5 K/mm3 (4.4-11.0)
[2024-01-14 06:29] LABS: Anion Gap 5 (5-15); BUN 28 mg/dL (7-18); BUN/Creat Ratio 32.8 RATIO (10-20); Calcium,Total 8.4 mg/dL (8.5-10.1); Chloride 109 mmol/L (98-107); Creatinine, Serum 0.85 mg/dL (0.55-1.02); EST Glomerular Filtration Rate 68 mL/min (>60); Est Glom Filt Rate - Afr Amer 82 mL/min (>60); Estimated Creatinine Clearance 48.59 ml/min; Glucose 121 mg/dL (74-106); Sodium Level 139 mmol/L (136-145)
[2024-01-14] MEDS: Budesonide Respules 0.5 MG/2 ML AMPUL.NEB. INHALATION ×2 (06:50→19:35)
[2024-01-14] MEDS: Ipratropium/Albuterol Sulfate 3 ML AMPUL.NEB INHALATION ×2 (06:50→19:35)
[2024-01-14] MEDS: 0.9% Normal Saline (1000mL) 1,000 ML 125 ML IV (06:52)
[2024-01-14 08:08] LABS: Ferritin 64 ng/mL (8-252); Iron 38 ug/dL (50-170); Iron Binding Capacity,Total 460 ug/dL (250-450); PERCENT IRON SATURATION 8.3 % (15.0-55.0)
[2024-01-14] MEDS: Aspirin 81 MG TAB.CHEW PO (09:30)
[2024-01-14] MEDS: Montelukast 10 MG Tablet PO (09:30)
[2024-01-14] MEDS: Venlafaxine XR 150 MG Capsule PO (09:31)
[2024-01-14] MEDS: Potassium Chloride Oral Tablet 20 MEQ PO (09:31)
[2024-01-14] MEDS: Loratadine 10 MG Tablet PO (09:32)
[2024-01-14] MEDS: Calcium Carb/Vitamin D 1 TABLET Tablet PO ×2 (09:33→15:58)
--- NOTE | 2024-01-14 10:55 | CASEMGMT ---
Addendum entered by Lana Wilkins 01/14/24 12:20: Social Work Pt accepted in TCU and they have precert. SW let pt and daughter know. SW did give daughter a list of alf facilities via [facility] in network w/pt's insurance and preferred geographic area complete w/quality and resource use data, for future reference. TCU concerned if pt had bowel movement, SW checked w/pt and RN, pt has not. SW will continue to follow. MARK Henley Original Note: Social Work SW met w/pt and daughter Rachel in room in regard to prior level of function and anticipated discharge plan. Pt normally is a resident at [facility]. Pt normally is independent with ambulation, is able to dress, bathe, get to restroom on her own. They do organize her medications, provide meals, clean. Pt does not use a walker or cane at her baseline but does have them. We spoke about discharge plan, both pt and daughter in agreement for SNF. They would like TCU. SW explained will need to check to see if they take pt's insurance. SW also explained the limitation that if they do take pt's insurance and can take pt, she would be limited to 20 days, as TCU definitely does not take the secondary part of pt's insurance, Medicaid. Both state unserstanding. SW explained will find out, and can provide to them a list of nursing facilities. Daughter Rachel states that they are already thinking they would like [facility] if TCU cannot take pt. SW explained we can check to see if her insurance is accepted and if so can send a referral to [facility] if [facility] cannot take pt. Both state understanding. SW called TCU, message left. SW will continue to follow. MARK Henley
--- NOTE | 2024-01-14 11:01 | CASEMGMT ---
Discharge Planning A list of?SNF providers including quality and resource use data and consistent with the patient's preferred geographic region, medical needs, and insurance network was created in [employer] Guide.? This list was provided to the SW. Nori Saunders Discharge Planning Asst.
[2024-01-14] MEDS: Senna/Docusate Sodium 1 Tablet 2 TABLET PO (12:19)
--- NOTE | 2024-01-14 13:15 | CASEMGMT ---
Addendum entered and electronically signed by Idalia Chavarria 01/14/24 15:51: Social Work Spoke with Dr. Lau and patient not yet ready for discharge today. Message left for Gloria in admissions at [facility] TCU of this udpate. Social work to follow. -ELLY Carmichael Original Note: Social Work Insurance authorization for patient to go to TCU. Confirmed with Gloria in admissions at TCU, that patient is able to be accepted today. Updated Dr. Lau. Plan: Skilled level of care at [facility] TCU, whenever patient is ready for discharge to next level of care. -ELLY Sinha
--- NOTE | 2024-01-14 14:22 | PN_ITS ---
Subjective Subjective Patient seen and examined. She had no complaints today. Review of systems otherwise negative. Hemoglobin is 7.7 today. Objective Data Objective Data Vital Signs: Vital Signs Temp Pulse Resp BP Pulse Ox O2 Del Method O2 Flow Rate 97.8 F 110 H 18 155/79 H 100 Nasal Cannula 2 01/14/24 09:25 01/14/24 09:25 01/14/24 09:25 01/14/24 09:25 01/14/24 09:25 01/14/24 09:25 01/14/24 09:25 Oxygen Flow Rate (L/min) 2 Oxygen Delivery Method Nasal Cannula Weight: 145 lb 15.136 oz Body Mass Index (BMI) 24.9 Intake & Output: Intake and Output for Last 24 Hours 01/12/24 01/13/24 01/14/24 23:59 23:59 23:59 Intake Total 500 / 500 4302.50 / 4302.50 1793.75 / 1793.75 Output Total 2150 / 2150 400 / 400 Balance 500 / 500 2152.50 / 2152.50 1393.75 / 1393.75 Lab / Micro Data 01/14/24 04:55 01/14/24 05:38 Labs: Laboratory Results - last 24 hr 01/14/24 04:55: WBC 10.5, RBC 2.72 L, Hgb 7.7 L, Hct 25.1 L, MCV 92.3, MCH 28.3, MCHC 30.7 L, RDW Std Deviation 50.7 H, RDW Coeff of Laura 15.0 H, Plt Count 123 L, MPV 10.1, Immature Gran % (Auto) 0.600, Neut % (Auto) 77.9 H, Lymph % (Auto) 10.7 L, [place] % (Auto) 6.9, Eos % (Auto) 3.5, Baso % (Auto) 0.4, Absolute Neuts (auto) 8.2 H, Absolute Lymphs (auto) 1.12, Nucleated RBC % 0 01/14/24 05:38: Sodium 139, Potassium 4.0, Chloride 109 H, Carbon Dioxide 25.0, Anion Gap 5, BUN 28 H, Creatinine 0.85, Estim Creat Clear Calc 48.59, Est GFR (MDRD) Af Amer 82, Est GFR (MDRD) Non-Af 68, BUN/Creatinine Ratio 32.8 H, Glucose 121 H, Calcium 8.4 L, Iron 38 L, TIBC 460 H, Iron Saturation 8.3 L, Ferritin 64 Physical Exam Const alert, oriented x3 and no apparent distress General Appearance: cooperative Orientation / Consciousness: confused HEENT normocephalic and head/scalp atraumatic Eyes PERRL and EOMs intact bilaterally Neck no lymphadenopathy and supple Lymph Lymphatic: no lymphadenopathy noted and no lymphedema noted Resp normal respiratory effort, normal air movement and clear to auscultation bilaterally Cardio Cardio Narrative: diminished breath sounds bibasally, no wheezes or crackles. On room air. GI normal to inspection, nondistended, normoactive bowel sounds, soft to palpation and non-tender Extremity normal capillary refill, no clubbing, cyanosis or edema and no calf tenderness General Extremity: no tenderness to palpation of joints or extremities Skin General Skin Exam: no breakdown Neuro CN's II-XII intact bilaterally, no focal motor deficits and no sensory deficits noted Motor Exam: general weakness Psych thought process normal Appearance: appropriate Assessment & Plan Assessment/Plan (1) MOUSTAPHA (acute kidney injury): (2) Fall: (3) Closed fracture of single pubic ramus of pelvis: PLAN: Plan #Nondisplaced fracture of the right pubic bone due to mechanical fall. * had mechanical fall and pelvic xray showed fracture of the right pubic bone * PT/OT on board. * will be nonoperative. Fall precautions * * #MOUSTAPHA * resolved. DC IVF * lisinopril and torsemide on hold * #Anemia * hb is 7.7 today, up from 7.6. was 11 on admission. However, all cell indices have fallen, ie wbc and platelets were low. * Will trend. May be hemodilutional. * Check stool for occult blood. * iron profile pending. If stool for occult blood is positive will get GI consult * * #Thrombocytopenia: Platelets at 123. Platelets have also dropped from 130 yesterday to 123. Was 166 on admission. May be due to hemodilution as well and the patient is an off IV fluids. Will monitor and see. #COPD: not in exacerbation. Breathing treatment with bronchodilators. #Hypotension * resolved. Resume BP meds * #Hyperlipidemia: on statin #Depression; on venlafaxine #Pulmonary nodule * CXR showed possible 8mm nodule in the right midlung. To have CT on outpatient basis for further evaluation. * DVT prophylaxis: SCDs. # Charges/Coding Visit Charges Inpatient E&M: 84333 Subs Hosp L2
[2024-01-14] MEDS: cloNIDine HCl 0.1 MG Tablet 0.100000000000000006 MG PO ×2 (14:23→21:25)
[2024-01-14] MEDS: Donepezil HCl 10 MG Tablet PO (21:24)
[2024-01-14] MEDS: MELATONIN 10 MG TABLET PO (21:25)
[2024-01-14] MEDS: Tolterodine Tartrate 2 MG CAP.SA PO (21:25)
[2024-01-14] MEDS: Atorvastatin Calcium 20 MG Tablet PO (21:26)
[2024-01-15] VITALS (14 sets, daily range): BP systolic 119–187; BP diastolic 74–95; PULSE 96–134; RESP 16–18; TEMP 36.6–37.2; O2SAT 92–99; BMI 24.9; BMI 25.0
[2024-01-15] MEDS: Acetaminophen 500 MG Tablet 1000 MG PO ×3 (05:09→20:44)
[2024-01-15 07:21] LABS: Absolute Lymphocyte Count 1.65 X10^3/uL (0.83-4.51); Basophil# 0.06 X10^3/uL; Basophil% 0.7 % (0-1); Eosinophils% 5.6 % (0-5); Hematocrit 21.9 % (37-47); Lymphocyte # 1.65 X10^3/ul (0.83-4.51); Lymphocyte % 18.3 % (19-41); Mean Corpuscular Hgb 29.7 pg (27.0-32.0); Mean Corpuscular Volume 92.8 fL (81-99); Mean Platelet Vol. 9.6 fl (6.2-12.0); Monocyte# 0.76 X10^3/uL; Monocyte% 8.4 % (0-10); NRBC Flagged by Analyzer 0.7 % (0-5); Neutrophil # 5.97 X10^3/uL (2.7-7.7); Neutrophil % 66.3 % (47-70); Platelet Count 161 K/mm3 (150-450); RBC Distribution Width CV 15.3 % (11.6-14.6); RBC Distribution Width SD 50.8 fl (35.1-43.9); Red Blood Count 2.36 M/mm3 (4.2-5.4)
[2024-01-15 07:42] LABS: Anion Gap 3 (5-15); BUN 12 mg/dL (7-18); BUN/Creat Ratio 22.3 RATIO (10-20); Calcium,Total 8.8 mg/dL (8.5-10.1); Chloride 111 mmol/L (98-107); Creatinine, Serum 0.54 mg/dL (0.55-1.02); EST Glomerular Filtration Rate 116 mL/min (>60); Est Glom Filt Rate - Afr Amer 140 mL/min (>60); Estimated Creatinine Clearance 51.63 ml/min; Glucose 100 mg/dL (74-106); Potassium 4.2 mmol/L (3.5-5.1); Sodium Level 143 mmol/L (136-145)
[2024-01-15] MEDS: Primidone 50 MG Tablet PO (08:17)
[2024-01-15] MEDS: cloNIDine HCl 0.1 MG Tablet 0.100000000000000006 MG PO ×2 (08:17→20:43)
[2024-01-15] MEDS: Venlafaxine XR 150 MG Capsule PO (08:17)
--- NOTE | 2024-01-15 10:20 | PN_ITS ---
Subjective Subjective Patient seen and examined. She had no complaints this morning. Review of systems otherwise negative. Hemoglobin today is down to 7. Gastroenterology consulted. Patient kept n.p.o. and she will have EGD today. I am profile showed iron deficiency anemia. 8 of packed red blood cell ordered. Objective Data Objective Data Vital Signs: Vital Signs Temp Pulse Resp BP Pulse Ox O2 Del Method O2 Flow Rate 98.0 F 105 H 18 187/93 H 92 Room Air 2 01/15/24 07:58 01/15/24 07:58 01/15/24 07:58 01/15/24 07:58 01/15/24 08:00 01/15/24 08:08 01/15/24 02:18 Oxygen Flow Rate (L/min) 2 Oxygen Delivery Method Room Air Weight: 145 lb 15.136 oz Body Mass Index (BMI) 25.0 Intake & Output: Intake and Output for Last 24 Hours 01/13/24 01/14/24 01/15/24 23:59 23:59 23:59 Intake Total 4302.50 / 4302.50 3293.75 / 3293.75 800 / 800 Output Total 2150 / 2150 2450 / 2450 1275 / 1275 Balance 2152.50 / 2152.50 843.75 / 843.75 -475 / -475 Lab / Micro Data 01/15/24 06:56 01/15/24 06:56 Labs: Laboratory Results - last 24 hr 01/15/24 06:56: WBC 9.0, RBC 2.36 L, Hgb 7.0 L, Hct 21.9 L, MCV 92.8, MCH 29.7, MCHC 32.0, RDW Std Deviation 50.8 H, RDW Coeff of Laura 15.3 H, Plt Count 161, MPV 9.6, Immature Gran % (Auto) 0.700, Neut % (Auto) 66.3, Lymph % (Auto) 18.3 L, [place] % (Auto) 8.4, Eos % (Auto) 5.6 H, Baso % (Auto) 0.7, Absolute Neuts (auto) 6.0, Absolute Lymphs (auto) 1.65, Nucleated RBC % 0.7, Sodium 143, Potassium 4.2, Chloride 111 H, Carbon Dioxide 29.0, Anion Gap 3 L, BUN 12, Creatinine 0.54 L, Estim Creat Clear Calc 51.63, Est GFR (MDRD) Af Amer 140, Est GFR (MDRD) Non- Af 116, BUN/Creatinine Ratio 22.3 H, Glucose 100, Calcium 8.8 01/15/24 08:25: Blood Type A POSITIVE, Antibody Screen NEGATIVE Physical Exam Const alert, oriented x3 and no apparent distress General Appearance: cooperative Orientation / Consciousness: confused HEENT normocephalic and head/scalp atraumatic Eyes PERRL and EOMs intact bilaterally Neck no lymphadenopathy and supple Lymph Lymphatic: no lymphadenopathy noted and no lymphedema noted Resp normal respiratory effort, normal air movement and clear to auscultation bilaterally Cardio Cardio Narrative: diminished breath sounds bibasally, no wheezes or crackles. On room air. GI normal to inspection, nondistended, normoactive bowel sounds, soft to palpation and non-tender Extremity normal capillary refill, no clubbing, cyanosis or edema and no calf tenderness General Extremity: no tenderness to palpation of joints or extremities Skin General Skin Exam: no breakdown Neuro CN's II-XII intact bilaterally, no focal motor deficits and no sensory deficits noted Motor Exam: strength 5/5 throughout and general weakness Psych Appearance: appropriate Assessment & Plan Assessment/Plan (1) MOUSTAPHA (acute kidney injury): (2) Fall: (3) Closed fracture of single pubic ramus of pelvis: PLAN: Plan #Nondisplaced fracture of the right pubic bone due to mechanical fall. * had mechanical fall and pelvic xray showed fracture of the right pubic bone * PT/OT on board. * will be nonoperative. Fall precautions * #MOUSTAPHA * resolved. DC IVF * lisinopril and torsemide on hold * #Iron deficiency anemia * Hb is down to 7 today from 7.7 yesterday. * Iron profile showed iron deficiency anemia. * Will transfuse reminded of packed red blood cell. Gastroenterology consulted and patient for EGD today. * Currently NPO. * * * #Thrombocytopenia: Platelets at 123. Platelets have also dropped from 130 yesterday to 123. Was 166 on admission. May be due to hemodilution as well and the patient is an off IV fluids. Will monitor and see. #COPD: not in exacerbation. Breathing treatment with bronchodilators. #Hypotension * resolved. Resume BP meds * #Hyperlipidemia: on statin #Depression; on venlafaxine #Pulmonary nodule * CXR showed possible 8mm nodule in the right midlung. To have CT on outpatient basis for further evaluation. * DVT prophylaxis: SCDs. # Charges/Coding Visit Charges Inpatient E&M: 36648 Subs Hosp L2
[2024-01-15 10:24] LABS: Hematocrit 26.6 % (37-47); Hemoglobin 8.3 g/dL (12.0-15.0)
[2024-01-15] MEDS: Lactated Ringers 1,000 ML 15 ML IV (10:45)
--- NOTE | 2024-01-15 11:30 | IMM_PTH ---
PATHOLOGY RESULTS PATIENT: MARCELLA PATHAK LOC: MS3 U#:[id number] AGE/SX: 83/F ROOM: IA318 RE01/12/[address]: Dr. Kristie Lau MD : 1940 BED: 1 DIS: 01/17/2024 SPEC #: [id number] RECD: 01/15/24 13:56 STATUS: JASBIR REQ #: [id number] NASH: 01/15/24 11:[address]: Jonathan Bell DEPT: IMMUNOHISTOCHEMISTRY RECD BY: Winnie Benito ENTERED: 01/15/24 13:56 SP TYPE: IMMUNO OTHR DR: MD Dr. Kristie Murray MD Dr. Paige Pierce, MD Tissues: Stomach, NOS Procedures: Synapto (add) H Pylori (initial) CD56 (add) CHROMO (add) CK8 (add) KI-67 (add) Pankeratin (add) PHYSICIAN & [address] [address] SPECIMEN INFORMATION: Tissue Source: Gastric ulcer Clinical Info: Samantha Specimen Number: [id number] CPT code: 67340, 29887 x6 METHODOLOGY: Deparaffinized sections of prefer/formalin-fixed tissue or PAP/DQ stained slides are incubated with monoclonal/polyclonal antibodies/oligonucleotide probes. Localization is made via biotin free immunoperoxidase method. Appropriate controls are performed and reacted as expected. Results on target cell population are indicated in the following table: RESULTS: ANTIBODY / CLONE RESULT H Pylori (polyclonal) negative AE1-3 (AE1/AE3/PCK26) negative CK8 (90jexcY99) negative CD56 (123C3.D5) negative Chromo (LK2H10) negative Synapto (polyclonal) negative Ki-67 (30-9) positive, low These tests were developed and their performance characteristics determined by [facility]. They may not have been cleared or approved by the U.S. Food and Drug Administration. The FDA has determined that such clearance or approval is not necessary. The above immunohistochemical/dualISH markers are ordered and reviewed by the Pathologist. INTERPRETATION: Gastric ulcer, biopsy: Negative for H. Pylori organism. Negative for neuroendocrine lesion SJ:oneyda 01/18/2024 Case has been reviewed in consultation with Dr. Rodriguez who concurs with the above diagnosis. IDC:AM
--- NOTE | 2024-01-15 11:30 | IMM_PTH ---
PATHOLOGY RESULTS PATIENT: MARCELLA PATHAK LOC: MS3 U#:[id number] AGE/SX: 83/F ROOM: HI318 RE01/12/[address]: Dr. Kristie Lau MD : 1940 BED: 1 DIS: 01/17/2024 SPEC #: [id number] RECD: 01/15/24 13:56 STATUS: JASBIR REAndry #: [id number] NASH: 01/15/24 11:[address]: Jonathan Bell DEPT: IMMUNOHISTOCHEMISTRY RECD BY: Winnie Benito ENTERED: 01/15/24 13:56 SP TYPE: IMMUNO OTHR DR: MD Dr. Kristie Murray MD Dr. Paige Pierce, MD Tissues: Stomach, NOS Procedures: H Pylori (initial) PHYSICIAN & INSTITUTION [place] [address] SPECIMEN INFORMATION: Tissue Source: Gastric ulcer Clinical Info: Anemia Specimen Number: [id number] CPT code: 42442 METHODOLOGY: Deparaffinized sections of prefer/formalin-fixed tissue or PAP/DQ stained slides are incubated with monoclonal/polyclonal antibodies/oligonucleotide probes. Localization is made via biotin free immunoperoxidase method. Appropriate controls are performed and reacted as expected. Results on target cell population are indicated in the following table: RESULTS: ANTIBODY / CLONE RESULT H Pylori (polyclonal) negative These tests were developed and their performance characteristics determined by [facility]. They may not have been cleared or approved by the U.S. Food and Drug Administration. The FDA has determined that such clearance or approval is not necessary. The above immunohistochemical/dualISH markers are ordered and reviewed by the Pathologist. INTERPRETATION: Gastric ulcer, biopsy: Negative for H. Pylori organism. MINOO/mikael 01/16/24
--- NOTE | 2024-01-15 11:30 | EGD_PTH ---
PATHOLOGY RESULTS PATIENT: MARCELLA PATHAK LOC: MS3 U#:[id number] AGE/SX: 83/F ROOM: NV318 RE01/12/[address]: Dr. Kristie Lau MD : 1940 BED: 1 DIS: 01/17/2024 SPEC #: [id number] RECD: 01/15/24 12:34 STATUS: JASBIR REAndry #: [id number] NASH: 01/15/24 11:[address]: Jonathan Bell DEPT: SURGICAL PATHOLOGY RECD BY: Pepper Nava ENTERED: 01/15/24 13:01 SP TYPE: EGD BIOPSY OTHR DR: MD Dr. Kristie Murray MD Dr. Paige Pierce, MD Tissues: Gastric mucous membrane Procedures: Surgery Specimen Level IV Comments: @ Ordering doctor for MAYANK edited from to @ by CONG at 01/15/24 1353 @ Submitting doctor edited from to @ by CONG at 01/15/24 1358 HEADER OPERATION: EGD with electrohemostasis and biopsies PRE-OP DIAGNOSIS: Anemia TISSUE SUBMITTED: Gastric ulcer biopsy MICROSCOPIC DIAGNOSIS Gastric ulcer, biopsy: Fragments of gastric mucosa with superficial ulceration, acute and chronic inflammation and fibrinous exudation. MINOO:oneyda 01/16/2024 COMMENT The results of immunohistochemistry for Helicobacter pylori will be reported separately ([id number]). Immunohistochemistry ([id number]) is negative for neuroendocrine lesion. This case has been reviewed in consultation with Dr. Rodriguez who concurs with the above diagnosis. MICROSCOPIC DESCRIPTION Slides are reviewed. GROSS DESCRIPTION Received in fixative is one container labeled with the patient's name and designated gastric ulcer biopsy. The specimen consists of two irregular fragments of light simental soft tissue that in aggregate measure 0.6 x 0.2 x 0.1 cm. The specimen is totally submitted in one cassette. / MINOO:oneyda 01/15/2024 TC:2 [facility]: [id number]
--- NOTE | 2024-01-15 12:41 | OP.EGD_ITS ---
Patient Name: Erlinda Swift Procedure Date: 01/15/2024 11:26 AM Date of : 1940 Age: 83 Procedure: Upper GI endoscopy Indications: Iron deficiency anemia, Heme positive stool Providers: Jonathan Bell DO Medicines: Monitored Anesthesia Care Patient Profile: This is an 83 year old female. Refer to note in patient chart for documentation of history and physical. Patient has symptoms of acute epigastric abdominal pain. Complications: No immediate complications. Procedure: Pre-Anesthesia Assessment: - Prior to the procedure, a History and Physical was performed, and patient medications and allergies were reviewed. The patient is competent. The risks and benefits of the procedure and the sedation options and risks were discussed with the patient. All questions were answered and informed consent was obtained. Patient identification and proposed procedure were verified by the physician in the pre-procedure area. Mental Status Examination: alert and oriented. Airway Examination: normal oropharyngeal airway and neck mobility. Respiratory Examination: clear to auscultation. CV Examination: normal. Prophylactic Antibiotics: The patient does not require prophylactic antibiotics. Prior Anticoagulants: The patient has taken no anticoagulant or antiplatelet agents. ASA Grade Assessment: IV - A patient with severe systemic disease that is a constant threat to life. After reviewing the risks and benefits, the patient was deemed in satisfactory condition to undergo the procedure. The anesthesia plan was to use monitored anesthesia care (MAC). Immediately prior to administration of medications, the patient was re-assessed for adequacy to receive sedatives. The heart rate, respiratory rate, oxygen saturations, blood pressure, adequacy of pulmonary ventilation, and response to care were monitored throughout the procedure. The physical status of the patient was re-assessed after the procedure. After obtaining informed consent, the endoscope was passed under direct vision. Throughout the procedure, the patient's blood pressure, pulse, and oxygen saturations were monitored continuously. The gastroscope was introduced through the mouth, and advanced to the second part of duodenum. The upper GI endoscopy was accomplished without difficulty. The patient tolerated the procedure well. Scope In: 11:56:35 AM Scope Out: 12:08:11 PM Total Procedure Duration Time 0 hours 11 minutes 36 seconds Findings: The examined esophagus was normal. Three oozing cratered gastric ulcers with pigmented material were found in the cardia. The largest lesion was 10 mm in largest dimension. Area was successfully injected with 5 mL of a 0.1 mg/mL solution of epinephrine for drug delivery. Coagulation for hemostasis using heater probe was successful. Estimated blood loss was minimal. Two non-bleeding linear gastric ulcers with no stigmata of bleeding were found in the gastric fundus and on the greater curvature of the stomach. The largest lesion was 5 mm in largest dimension. Biopsies were taken with a cold forceps for histology. Verification of patient identification for the specimen was done. Estimated blood loss was minimal. Biopsies were taken with a cold forceps for Helicobacter pylori testing. Verification of patient identification for the specimen was done. Estimated blood loss was minimal. The second portion of the duodenum was normal. Impression: - Normal esophagus. - Oozing gastric ulcers with pigmented material. Injected. Treated with a heater probe. - Non-bleeding gastric ulcers with no stigmata of bleeding. Biopsied. - Normal second portion of the duodenum. Recommendation: - Return patient to hospital [facility] for ongoing care. - Full liquid diet today. - Use Protonix (pantoprazole) 40 mg PO BID for 12 weeks. - Use sucralfate tablets 1 gram PO BID for 4 weeks. - No aspirin, ibuprofen, naproxen, or other non-steroidal anti-inflammatory drugs for 7 days. Procedure Code(s): --- Professional --- 80023, 59, Esophagogastroduodenoscopy, flexible, transoral; with control of bleeding, any method 53627, Esophagogastroduodenoscopy, flexible, transoral; with biopsy, single or multiple 60630, 59,51, Esophagogastroduodenoscopy, flexible, transoral; with directed submucosal injection(s), any substance CPT copyright 2021 [employer]. All rights reserved. The codes documented in this report are preliminary and upon surgical coder review may be revised to meet current compliance requirements. Jonathan Bell DO 01/15/2024 12:41:01 PM This report has been signed electronically. Number of Addenda: 0 Note Initiated On: 01/15/2024 11:26 AM
--- NOTE | 2024-01-15 12:41 | OP.CCLET_ITS ---
01/15/2024 Darcy Clifton Md Re : Upper GI endoscopy procedure for Erlinda Swift Dear Dr. Clifton This procedure was performed on Monday, January 15, 2024. My impressions and recommendations are as follows: Impressions : - Normal esophagus. - Oozing gastric ulcers with pigmented material. Injected. Treated with a heater probe. - Non-bleeding gastric ulcers with no stigmata of bleeding. Biopsied. - Normal second portion of the duodenum. Recommendations : - Return patient to hospital [facility] for ongoing care. - Full liquid diet today. - Use Protonix (pantoprazole) 40 mg PO BID for 12 weeks. - Use sucralfate tablets 1 gram PO BID for 4 weeks. - No aspirin, ibuprofen, naproxen, or other non-steroidal anti-inflammatory drugs for 7 days. My findings are described in the full procedure note, which is enclosed. If I can be of further assistance, please feel free to contact me at . Sincerely, Jonathan Bell, 01/15/2024 12:41:01 PM This report has been signed electronically.
[2024-01-15] MEDS: Potassium Chloride Oral Tablet 20 MEQ PO (15:07)
[2024-01-15] MEDS: Loratadine 10 MG Tablet PO (15:07)
[2024-01-15] MEDS: Montelukast 10 MG Tablet PO (15:07)
[2024-01-15] MEDS: Calcium Carb/Vitamin D 1 TABLET Tablet PO (15:07)
[2024-01-15] MEDS: Ipratropium/Albuterol Sulfate 3 ML AMPUL.NEB INHALATION (19:49)
[2024-01-15] MEDS: Budesonide Respules 0.5 MG/2 ML AMPUL.NEB. INHALATION (19:49)
[2024-01-15] MEDS: Donepezil HCl 10 MG Tablet PO (20:44)
[2024-01-15] MEDS: Atorvastatin Calcium 20 MG Tablet PO (20:44)
[2024-01-15] MEDS: Tolterodine Tartrate 2 MG CAP.SA PO (20:44)
[2024-01-15] MEDS: MELATONIN 10 MG TABLET PO (20:45)
[2024-01-16] VITALS (20 sets, daily range): BP systolic 107–182; BP diastolic 60–91; PULSE 73–118; RESP 16–20; TEMP 36.4–37.1; O2SAT 93–100; BMI 24.8
[2024-01-16] MEDS: Propranolol LA 80 MG Capsule PO ×3 (00:05→22:39)
[2024-01-16] MEDS: Lisinopril 40 MG Tablet PO ×2 (01:12→10:21)
[2024-01-16 06:28] LABS: Absolute Lymphocyte Count 1.67 X10^3/uL (0.83-4.51); Absolute Neutrophil Count 7.1 X10^3/uL (2.0-7.7); Basophil# 0.07 X10^3/uL; Basophil% 0.7 % (0-1); Eosinophil# 0.51 X10^3/uL; Hematocrit 21.1 % (37-47); Hemoglobin 6.5 g/dL (12.0-15.0); Lymphocyte # 1.67 X10^3/ul (0.83-4.51); Lymphocyte % 16.4 % (19-41); Mean Corp Hgb Conc 30.8 g/dL (32-36); Mean Corpuscular Hgb 28.5 pg (27.0-32.0); Mean Corpuscular Volume 92.5 fL (81-99); Mean Platelet Vol. 9.4 fl (6.2-12.0); Monocyte# 0.81 X10^3/uL; Monocyte% 7.9 % (0-10); NRBC Flagged by Analyzer 0.8 % (0-5); Neutrophil # 7.05 X10^3/uL (2.7-7.7); Neutrophil % 69.1 % (47-70); Platelet Count 186 K/mm3 (150-450); RBC Distribution Width CV 15.8 % (11.6-14.6); RBC Distribution Width SD 51.7 fl (35.1-43.9); Red Blood Count 2.28 M/mm3 (4.2-5.4); White Blood Count 10.2 K/mm3 (4.4-11.0)
[2024-01-16] MEDS: Acetaminophen 500 MG Tablet 1000 MG PO ×3 (06:35→22:40)
[2024-01-16 07:04] LABS: Anion Gap 1 (5-15); BUN 11 mg/dL (7-18); BUN/Creat Ratio 23.3 RATIO (10-20); Calcium,Total 8.8 mg/dL (8.5-10.1); Chloride 109 mmol/L (98-107); Creatinine, Serum 0.47 mg/dL (0.55-1.02); EST Glomerular Filtration Rate 134 mL/min (>60); Est Glom Filt Rate - Afr Amer 163 mL/min (>60); Estimated Creatinine Clearance 51.56 ml/min; Glucose 99 mg/dL (74-106); Potassium 4.2 mmol/L (3.5-5.1); Sodium Level 140 mmol/L (136-145)
[2024-01-16] MEDS: Ipratropium/Albuterol Sulfate 3 ML AMPUL.NEB INHALATION ×3 (07:21→19:29)
[2024-01-16] MEDS: Budesonide Respules 0.5 MG/2 ML AMPUL.NEB. INHALATION ×2 (07:21→19:29)
[2024-01-16] MEDS: Calcium Carb/Vitamin D 1 TABLET Tablet PO ×2 (08:04→18:05)
[2024-01-16] MEDS: 0.9% Normal Saline (250mL Bag) 250 ML 15 ML IV (08:09)
[2024-01-16] MEDS: 0.9% Saline Lock 10 ML Syringe IV ×2 (08:09→20:38)
[2024-01-16] MEDS: Pantoprazole Sodium 40 MG in 0.9% Normal Saline (100mL MB+) 100 ML 330 MG IV ×2 (08:09→22:36)
[2024-01-16] MEDS: Loratadine 10 MG Tablet PO (10:10)
[2024-01-16] MEDS: Primidone 50 MG Tablet PO (10:10)
[2024-01-16] MEDS: Montelukast 10 MG Tablet PO (10:10)
[2024-01-16] MEDS: Potassium Chloride Oral Tablet 20 MEQ PO (10:11)
[2024-01-16] MEDS: cloNIDine HCl 0.1 MG Tablet 0.100000000000000006 MG PO ×2 (10:11→22:39)
[2024-01-16] MEDS: Venlafaxine XR 150 MG Capsule PO (10:11)
[2024-01-16] MEDS: Sucralfate 1 GM Tablet PO ×3 (11:53→22:40)
--- NOTE | 2024-01-16 12:47 | PN_ITS ---
Subjective Subjective Patient seen and examined. She had no active complaints today. She denies any dark stools or any form blood per rectum or any coffee-ground emesis. She did have EGD yesterday which showed multiple bleeding ulcers. She is currently on IV PPI. Hemoglobin today is 6.5. Objective Data Objective Data Vital Signs: Vital Signs Temp Pulse Resp BP Pulse Ox O2 Del Method O2 Flow Rate 98.4 F 85 18 126/63 H 98 Nasal Cannula 2 01/16/24 12:39 01/16/24 12:39 01/16/24 12:39 01/16/24 12:39 01/16/24 12:39 01/16/24 12:39 01/16/24 12:39 Oxygen Flow Rate (L/min) 2 Oxygen Delivery Method Nasal Cannula Weight: 145 lb 8.081 oz Body Mass Index (BMI) 24.8 Intake & Output: Intake and Output for Last 24 Hours 01/14/24 01/15/24 01/16/24 23:59 23:59 23:59 Intake Total 3293.75 / 3293.75 1591.25 / 1591.25 810 / 810 Output Total 2450 / 2450 2175 / 2675 800 / 800 Balance 843.75 / 843.75 -583.75 / -1083.75 Lab / Micro Data 01/16/24 06:04 01/16/24 06:04 Labs: Laboratory Results - last 24 hr 01/15/24 08:25: Crossmatch See Detail 01/15/24 08:25: Crossmatch See Detail 01/16/24 06:04: WBC 10.2, RBC 2.28 L, Hgb 6.5 L, Hct 21.1 L, MCV 92.5, MCH 28.5, MCHC 30.8 L, RDW Std Deviation 51.7 H, RDW Coeff of Laura 15.8 H, Plt Count 186, MPV 9.4, Immature Gran % (Auto) 0.900, Neut % (Auto) 69.1, Lymph % (Auto) 16.4 L , [place] % (Auto) 7.9, Eos % (Auto) 5.0, Baso % (Auto) 0.7, Absolute Neuts (auto) 7.1, Absolute Lymphs (auto) 1.67, Nucleated RBC % 0.8, Sodium 140, Potassium 4.2, Chloride 109 H, Carbon Dioxide 30.0, Anion Gap 1 L, BUN 11, Creatinine 0.47 L, Estim Creat Clear Calc 51.56, Est GFR (MDRD) Af Amer 163, Est GFR (MDRD) Non- Af 134, BUN/Creatinine Ratio 23.3 H, Glucose 99, Calcium 8.8 Micro: Microbiology 01/15/24 10:00 Stool Stool Occult Blood (JACK) - Final Occult Blood Positive Physical Exam Const alert, oriented x3 and no apparent distress General Appearance: cooperative Orientation / Consciousness: confused HEENT normocephalic and head/scalp atraumatic Eyes PERRL and EOMs intact bilaterally Neck no lymphadenopathy and supple Lymph Lymphatic: no lymphadenopathy noted and no lymphedema noted Resp normal respiratory effort, normal air movement and clear to auscultation bilaterally Cardio Cardio Narrative: diminished breath sounds bibasally, no wheezes or crackles. On room air. GI normal to inspection, nondistended, normoactive bowel sounds, soft to palpation and non-tender Extremity normal capillary refill, no clubbing, cyanosis or edema and no calf tenderness General Extremity: no tenderness to palpation of joints or extremities Skin General Skin Exam: no breakdown Neuro CN's II-XII intact bilaterally, no focal motor deficits and no sensory deficits noted Motor Exam: strength 5/5 throughout and general weakness Psych thought process normal Psych Narrative: Appearance: appropriate Assessment & Plan Assessment/Plan (1) MOUSTAPHA (acute kidney injury): (2) Fall: (3) Closed fracture of single pubic ramus of pelvis: PLAN: Plan #Nondisplaced fracture of the right pubic bone due to mechanical fall. * had mechanical fall and pelvic xray showed fracture of the right pubic bone * PT/OT on board. * will be nonoperative. Fall precautions * #MOUSTAPHA * resolved. * * #Iron deficiency anemia * Hb today 6.5. She was transfused with packed red blood cells yesterday. She did have EGD which showed multiple bleeding ulcers. She is on IV PPI and sucralfate. * Will transfuse with 2 more units of packed red blood cells today. Will start on iron replacement. Will give iron infusion today. * Gastroenterology on board. * * * #Thrombocytopenia: Resolved. Platelets are 186 today. #COPD: not in exacerbation. Breathing treatment with bronchodilators. #Hypotension * resolved. Lisinopril resumed. #Hypertension: Back on her lisinopril and clonidine. * #Hyperlipidemia: on statin #Depression; on venlafaxine #Pulmonary nodule * CXR showed possible 8mm nodule in the right midlung. To have CT on outpatient basis for further evaluation. * DVT prophylaxis: SCDs. # Charges/Coding Visit Charges Inpatient E&M: 45069 Subs Hosp L3
[2024-01-16] MEDS: Sodium Ferric Gluconat/Sucrose 125 MG in 0.9% Normal Saline (100mL Bag) 100 ML 110 MG IV (20:38)
[2024-01-16] MEDS: Tolterodine Tartrate 2 MG CAP.SA PO (22:39)
[2024-01-16] MEDS: Donepezil HCl 10 MG Tablet PO (22:39)
[2024-01-16] MEDS: MELATONIN 10 MG TABLET PO (22:39)
[2024-01-16] MEDS: Atorvastatin Calcium 20 MG Tablet PO (22:40)
[2024-01-17 05:55] VITALS: BP 165/85; PULSE 81; RESP 16; TEMP 36.6; O2SAT 98
[2024-01-17 06:00] VITALS: BMI 27.4
[2024-01-17] MEDS: Sucralfate 1 GM Tablet PO ×2 (06:44→11:42)
[2024-01-17] MEDS: Acetaminophen 500 MG Tablet 1000 MG PO (06:44)
[2024-01-17 07:06] VITALS: PULSE 87; RESP 16; O2SAT 96
[2024-01-17] MEDS: Budesonide Respules 0.5 MG/2 ML AMPUL.NEB. INHALATION (07:10)
[2024-01-17] MEDS: Ipratropium/Albuterol Sulfate 3 ML AMPUL.NEB INHALATION ×2 (07:10→13:27)
[2024-01-17 07:53] LABS: Absolute Lymphocyte Count 1.48 X10^3/uL (0.83-4.51); Basophil# 0.06 X10^3/uL; Basophil% 0.7 % (0-1); Eosinophil# 0.51 X10^3/uL; Eosinophils% 5.6 % (0-5); Hemoglobin 9.2 g/dL (12.0-15.0); Lymphocyte # 1.48 X10^3/ul (0.83-4.51); Lymphocyte % 16.3 % (19-41); Mean Corp Hgb Conc 31.7 g/dL (32-36); Mean Corpuscular Hgb 29.7 pg (27.0-32.0); Mean Corpuscular Volume 93.5 fL (81-99); Mean Platelet Vol. 9.3 fl (6.2-12.0); Monocyte# 0.87 X10^3/uL; Monocyte% 9.6 % (0-10); NRBC Flagged by Analyzer 1.2 % (0-5); Neutrophil # 6.04 X10^3/uL (2.7-7.7); Neutrophil % 66.6 % (47-70); Platelet Count 197 K/mm3 (150-450); RBC Distribution Width CV 15.2 % (11.6-14.6); RBC Distribution Width SD 50.2 fl (35.1-43.9); White Blood Count 9.1 K/mm3 (4.4-11.0)
--- NOTE | 2024-01-17 07:59 | CPS ---
decreased pt to 1L NC at this time
[2024-01-17 08:15] LABS: Anion Gap 0 (5-15); BUN 11 mg/dL (7-18); Calcium,Total 8.6 mg/dL (8.5-10.1); Chloride 110 mmol/L (98-107); EST Glomerular Filtration Rate 125 mL/min (>60); Est Glom Filt Rate - Afr Amer 152 mL/min (>60); Estimated Creatinine Clearance 53.96 ml/min; Glucose 91 mg/dL (74-106); Potassium 3.8 mmol/L (3.5-5.1); Sodium Level 140 mmol/L (136-145)
[2024-01-17 09:10] VITALS: BP 148/68; PULSE 84; RESP 18; TEMP 37; O2SAT 95
[2024-01-17] MEDS: Potassium Chloride Oral Tablet 20 MEQ PO (09:12)
[2024-01-17] MEDS: Primidone 50 MG Tablet PO (09:12)
[2024-01-17] MEDS: Loratadine 10 MG Tablet PO (09:12)
[2024-01-17] MEDS: Calcium Carb/Vitamin D 1 TABLET Tablet PO (09:12)
[2024-01-17] MEDS: Lisinopril 40 MG Tablet PO (09:12)
[2024-01-17] MEDS: Venlafaxine XR 150 MG Capsule PO (09:12)
[2024-01-17] MEDS: cloNIDine HCl 0.1 MG Tablet 0.100000000000000006 MG PO (09:12)
[2024-01-17] MEDS: Montelukast 10 MG Tablet PO (09:12)
[2024-01-17] MEDS: Pantoprazole Sodium 40 MG in 0.9% Normal Saline (100mL MB+) 100 ML 330 MG IV (09:13)
[2024-01-17 09:15] VITALS: O2SAT 95
[2024-01-17] MEDS: Propranolol LA 80 MG Capsule PO (09:56)
--- NOTE | 2024-01-17 11:45 | TREXTCAR_ITS ---
Diet Diet Order/Speech Therapy: 01/15/24 14:58 Diet: Regular - General Is pt able to select menu?: No Routine Orders/Code Status Enema Type: Fleetz Enema Frequency: Daily PRN Suppository Type: Dulcolax 10mg Suppository Frequency: Daily PRN O2 Frequency: PRN Keep PO Greater than or Equal to (%): 90 Therapies Weight Bearing: Weight bearing as tolerated Physical Therapy: Eval and Treat Occupational Therapy: Eval and Treat Problem/Diagnosis (1) MOUSTAPHA (acute kidney injury): Status: Acute Code(s): N17.9 - Acute kidney failure, unspecified (2) Fall: Status: Acute Code(s): W19.XXXA - Unspecified fall, initial encounter (3) Closed fracture of single pubic ramus of pelvis: Status: Acute Code(s): S32.509A - Unspecified fracture of unspecified pubis, initial encounter for closed fracture Plan #Nondisplaced fracture of the right pubic bone due to mechanical fall. * had mechanical fall and pelvic xray showed fracture of the right pubic bone * PT/OT on board. * will be nonoperative. Fall precautions * #MOUSTAPHA * resolved. * * #Iron deficiency anemia * Hb today 6.5. She was transfused with packed red blood cells yesterday. She did have EGD which showed multiple bleeding ulcers. She is on IV PPI and sucralfate. * Will transfuse with 2 more units of packed red blood cells today. Will start on iron replacement. Will give iron infusion today. * Gastroenterology on board. * * * #Thrombocytopenia: Resolved. Platelets are 186 today. #COPD: not in exacerbation. Breathing treatment with bronchodilators. #Hypotension * resolved. Lisinopril resumed. #Hypertension: Back on her lisinopril and clonidine. * #Hyperlipidemia: on statin #Depression; on venlafaxine #Pulmonary nodule * CXR showed possible 8mm nodule in the right midlung. To have CT on outpatient basis for further evaluation. * DVT prophylaxis: SCDs. # Allergies/Procedures Done in Hospital Allergies Penicillins Allergy (Unknown, Verified 01/12/24 12:15) NEEDS FOLLOW-UP Procedures: EGD Type of Care/Length of Stay Estimated LOS: Convalescent Care Less Than 30 days Type of Care Needed: Skilled Rehab Potential: Fair Prognosis: Fair Additional Orders/Day of Discharge Day of Discharge: 01/17/24 Dietary and Speech Recommendations Dietitian Recommendations/Changes: Continue regular diet as ordered. ONS as needed if PO fails at meals. Discharge Plan Admission Admit Date/Time: 01/12/24 16:23 Primary Reason for Your Visit: MOUSTAPHA, pubic rami fracture, anemia Attending Provider: Kristie Lau Primary Care Provider: Darcy Clifton Consulting Providers: Amanda Jeter Instructions Patient Instructions: Bleeding Peptic Ulcer: Treatment Discharge Orders/Prescriptions Prescriptions: New sucralfate 1 gram Tablet 1 g PO 1HR_ACHS Qty: 90 1RF pantoprazole 40 mg tablet,delayed release (DR/EC) 40 mg PO BID Qty: 60 2RF Continued atorvastatin 20 mg tablet 20 mg PO QHS Patient Comments: TAKE 1 TABLET BY MOUTH ONCE DAILY donepezil 10 mg tablet 10 mg PO QHS Patient Comments: TAKE 1 TABLET BY MOUTH NIGHTLY aspirin 81 mg tablet,chewable 1 tab PO DAILY Patient Comments: CHEW AND SWALLOW 1 TABLET BY MOUTH ONCE DAILY calcium carbonate-vitamin D3 500 mg-15 mcg (600 unit) tablet 1 tab PO BID Patient Comments: TAKE 1 TABLET BY MOUTH TWICE DAILY clonidine HCl 0.1 mg tablet 0.1 mg PO BID oxybutynin chloride 10 mg tablet extended release 24hr 10 mg PO QHS Patient Comments: TAKE 1 TABLET BY MOUTH EVERY DAY alendronate 70 mg tablet 70 mg PO QWEEK Patient Comments: TAKE 1 TABLET NEEDED EVERY SUN {Q1W1} venlafaxine 150 mg capsule,extended release 24hr 150 mg PO DAILY Patient Comments: TAKE 1 CAPSULE BY MOUTH EVERY DAY propranolol 80 mg capsule,extended release 24 hr 80 mg PO BID Patient Comments: TAKE 1 CAPSULE BY MOUTH TWICE DAILY HOLD FOR SBP <120 montelukast 10 mg tablet 10 mg PO DAILY Patient Comments: TAKE 1 TABLET BY MOUTH EVERY DAY lisinopril 40 mg tablet 40 mg PO DAILY Patient Comments: TAKE 1 TABLET BY MOUTH ONCE DAILY fluticasone furoate-vilanterol [Breo Ellipta] 100-25 mcg/dose blister with device 1 inh INHALATION Q24H Patient Comments: INHALE ONE (1) PUFF BY MOUTH ONCE DAILY potassium chloride 20 mEq tablet extended release 20 meq PO DAILY Patient Comments: TAKE 1 TABLET BY MOUTH ONCE DAILY WITH FOOD torsemide 20 mg tablet 20 mg PO DAILY primidone 50 mg tablet 50 mg PO DAILY Trelegy Ellipta 100-62.5-25 mcg blister with device 1 inh inhalation DAILY loratadine [Loradamed] 10 mg tablet 10 mg PO DAILY alendronate [Fosamax] 70 mg tablet 70 mg PO QWEEK Patient Comments: q sunday Referrals / Follow Up: Darcy Clifton MD [Primary Care Provider] - Within 2 Weeks Jonathan Bell DO [Med Staff - Active Staff] - Within 2 Weeks Disposition Disposition (needs filled in before D/C Order can be placed): Long Term Facility
--- NOTE | 2024-01-17 12:08 | CASEMGMT ---
Social Work Per physician, pt is ready for discharge today. TCU updated and can accept pt today. Discharge orders faxed to TCU and nursing notified. SW met with pt and updated on discharge plan and pt is agreeable. With pt permission, phone call to tripp Ramos and notified of dc today to TCU. Disposition: TCU, skilled level of care [facility]
[2024-01-17 13:25] VITALS: PULSE 77; RESP 16; O2SAT 93
--- NOTE | 2024-01-17 14:25 | CPS ---
Pt was on RA when RT went into room. Sat was 93%. Remained on RA
--- NOTE | 2024-01-17 15:21 | DS.PCM_ITS ---
Providers Date of Admission: 01/12/24 Date of Discharge: 01/17/24 Primary Care Physician: Dr. Darcy Clifton MD Consultations 01/15/24 07:35 Consult: Gastroenterology Routine Consulting Provider: [facility] Reason for Consult: acute on chronic anemia EMERGENT Consult: No MD Notified: Yes Date Notified: 01/15/24 Time Notified: 07:35 Method of Notification: Text Reason For Visit: MOUSTAPHA, PUBIC FX Diagnosis Discharge Diagnosis (1) MOUSTAPHA (acute kidney injury): Status: Acute Code(s): N17.9 - Acute kidney failure, unspecified (2) Fall: Status: Acute Code(s): W19.XXXA - Unspecified fall, initial encounter (3) Closed fracture of single pubic ramus of pelvis: Status: Acute Code(s): S32.509A - Unspecified fracture of unspecified pubis, initial encounter for closed fracture Plan #Nondisplaced fracture of the right pubic bone due to mechanical fall. * had mechanical fall and pelvic xray showed fracture of the right pubic bone * PT/OT on board. * will be nonoperative. Fall precautions * #MOUSTAPHA * resolved. * * #Iron deficiency anemia * Hb today 6.5. She was transfused with packed red blood cells yesterday. She did have EGD which showed multiple bleeding ulcers. She is on IV PPI and sucralfate. * Will transfuse with 2 more units of packed red blood cells today. Will start on iron replacement. Will give iron infusion today. * Gastroenterology on board. * * * #Thrombocytopenia: Resolved. Platelets are 186 today. #COPD: not in exacerbation. Breathing treatment with bronchodilators. #Hypotension * resolved. Lisinopril resumed. #Hypertension: Back on her lisinopril and clonidine. * #Hyperlipidemia: on statin #Depression; on venlafaxine #Pulmonary nodule * CXR showed possible 8mm nodule in the right midlung. To have CT on outpatient basis for further evaluation. * DVT prophylaxis: SCDs. # Medications at Discharge Home Medications alendronate 70 mg tablet 70 mg PO QWEEK supplement 01/12/24 alendronate 70 mg tablet (Fosamax) 70 mg PO QWEEK oa 01/12/24 aspirin 81 mg chewable tablet 1 tab PO DAILY blood thinner 01/12/24 atorvastatin 20 mg tablet 20 mg PO QHS hld 01/12/24 calcium carbonate 500 mg-vitamin D3 15 mcg (600 unit) tablet 1 tab PO BID calcuim 01/12/24 clonidine HCl 0.1 mg tablet 0.1 mg PO BID BP 01/12/24 donepezil 10 mg tablet 10 mg PO QHS dementia 01/12/24 fluticasone fur. 100 mcg-umeclid 62.5 mcg-vilant 25 mcg inhalat.powder (Trelegy Ellipta) 1 inh inhalation DAILY COPD 01/12/24 fluticasone furoate 100 mcg-vilanterol 25 mcg/dose inhalation powder (Breo Ellipta) 1 inh inhalation Q24H copd 01/12/24 lisinopril 40 mg tablet 40 mg PO DAILY htn 01/12/24 loratadine 10 mg tablet (Loradamed) 10 mg PO DAILY congestion 01/12/24 montelukast 10 mg tablet 10 mg PO DAILY asthma 01/12/24 oxybutynin chloride 10 mg tablet,extended release 24 hr 10 mg PO QHS htn 01/12/24 potassium chloride 20 mEq tablet,extended release 20 meq PO DAILY supplement 01/12/24 primidone 50 mg tablet 50 mg PO DAILY tremors 01/12/24 propranolol 80 mg capsule,24 hr,extended release 80 mg PO BID htn 01/12/24 torsemide 20 mg tablet 20 mg PO DAILY edema 01/12/24 venlafaxine 150 mg capsule,extended release 24 hr 150 mg PO DAILY depression 01/12/24 ferrous sulfate 325 mg (65 mg iron) tablet 325 mg PO BID #60 tabs 01/17/24 pantoprazole 40 mg tablet,delayed release 40 mg PO BID reflux #60 tabs 01/17/24 sucralfate 1 gram tablet 1 g PO 1HR_ACHS prevent ulcers #90 tabs 01/17/24 Hospital Course Operations None Procedures EGD Summary of Care Provided Minutes Spent on Discharge: 55 Hospital Course: Patient is a 83-year-old female with a past medical history as outlined was admitted through the ED on 01/12/2024 with a complaint of mechanical fall in her assisted living facility. She tripped and fell and landed on her buttocks. She was unable to get up and laid there until the morning when the nurse came to help her get up. She was unable to ambulate. She was brought to the ED weight imaging done showed nondisplaced fracture of the right pubic bone. Creatinine was also elevated. She was admitted and managed for debility due to mechanical fall with pelvic fracture as well as MOUSTAPHA. She was hydrated with IV fluids and MOUSTAPHA resolved. Hospital course was complicated by a drop in her hemoglobin.. Further continued and so stool for occult blood was done which was positive. Iron profile was also positive for iron deficiency anemia. Gastroenterology was therefore consulted and she had EGD which showed normal esophagus and oozing gastric ulcers with pigmented material which was injected and treated with hea ter probe. She also had nonbleeding gastric ulcers with no stigmata of bleeding which were biopsied. She was placed on p.o. pantoprazole 40 mg twice daily as well as sucralfate 1 g twice daily for 4 weeks. She was noted to be on any aspirin or ibuprofen or any NSAIDs for at least 7 days. She did require 2 units of packed red blood cells during her admission. She remained stable and was discharged to her longterm facility on 01/17/2024. She is follow-up with her primary care doctor and gastroenterology within 1 to 2 weeks. Patient seen and examined prior to discharge. She felt well and had no complaints. She had an uneventful night. Review of systems otherwise negative. Labs and vitals reviewed. Home medications reviewed and reconciled. Physical Exam Const alert, oriented x3 and no apparent distress General Appearance: cooperative and comfortable Orientation / Consciousness: awake and confused HEENT normocephalic, head/scalp atraumatic, hearing grossly normal bilaterally and moist oral mucous membranes Mouth: oral and palatal mucosa normal Eyes PERRL and EOMs intact bilaterally Neck no lymphadenopathy and supple Lymph Lymphatic: no lymphadenopathy noted and no lymphedema noted Resp normal respiratory effort, normal air movement and clear to auscultation bilaterally Cardio Cardio Narrative: diminished breath sounds bibasally, no wheezes or crackles. On room air. GI normal to inspection, nondistended, normoactive bowel sounds, soft to palpation and non-tender Extremity normal to inspection, full ROM, normal capillary refill, no clubbing, cyanosis or edema and no calf tenderness General Extremity: no tenderness to palpation of joints or extremities Skin no rashes or lesions noted General Skin Exam: no breakdown Neuro oriented x3, CN's II-XII intact bilaterally, moves all extremities, no focal motor deficits and no sensory deficits noted Motor Exam: strength 5/5 throughout and general weakness Psych thought process normal Psych Narrative: Appearance: appropriate Weight / BMI Weight Weight: 160 lb 11.472 oz Body Mass Index (BMI) 27.4 ABG / Lab / Microbiology Data 01/17/24 06:52 01/17/24 06:52 Laboratory: Laboratory Results - last 24 hr 01/15/24 08:25: Crossmatch See Detail 01/17/24 06:52: WBC 9.1, RBC 3.10 L, Hgb 9.2 L, Hct 29.0 L, MCV 93.5, MCH 29.7, MCHC 31.7 L, RDW Std Deviation 50.2 H, RDW Coeff of Laura 15.2 H, Plt Count 197, MPV 9.3, Immature Gran % (Auto) 1.200 H, Neut % (Auto) 66.6, Lymph % (Auto) 16.3 L, [place] % (Auto) 9.6, Eos % (Auto) 5.6 H, Baso % (Auto) 0.7, Absolute Neuts (auto) 6.0, Absolute Lymphs (auto) 1.48, Nucleated RBC % 1.2, Sodium 140, Potassium 3.8, Chloride 110 H, Carbon Dioxide 30.0, Anion Gap 0 L, BUN 11, Creatinine 0.50 L, Estim Creat Clear Calc 53.96, Est GFR (MDRD) Af Amer 152, Est GFR (MDRD) Non-Af 125, BUN/Creatinine Ratio 22.0 H, Glucose 91, Calcium 8.6 Microbiology: Microbiology 01/15/24 10:00 Stool Stool Occult Blood (JACK) - Final Occult Blood Positive D/C Instructions Discharge Diet: Low fat / Low cholesterol Discharge Activity: Return to Normal Activity Weight Bearing Status: Weight bearing as tolerated Call your doctor if your incision/area has: Continuous Slow Oozing Call your doctor if you observe: Fever of 101 or Higher, Shortness of breath, Dizziness, Swelling in the ankles and Chest pain Meaningful Use Info Meaningful Use Diagnoses (Choose all that apply): None applicable Discharge Plan Admission Admit Date/Time: 01/12/24 16:23 Primary Reason for Your Visit: MOUSTAPHA, pubic rami fracture, anemia Attending Provider: Kristie Lau Primary Care Provider: Gudla,Darcy Consulting Providers: Amanda Jeter Instructions Patient Instructions: Bleeding Peptic Ulcer: Treatment Discharge Orders/Prescriptions Prescriptions: New sucralfate 1 gram Tablet 1 g PO 1HR_ACHS Qty: 90 1RF pantoprazole 40 mg tablet,delayed release (DR/EC) 40 mg PO BID Qty: 60 2RF ferrous sulfate 325 mg (65 mg iron) tablet 325 mg PO BID Qty: 60 2RF Continued atorvastatin 20 mg tablet 20 mg PO QHS Patient Comments: TAKE 1 TABLET BY MOUTH ONCE DAILY donepezil 10 mg tablet 10 mg PO QHS Patient Comments: TAKE 1 TABLET BY MOUTH NIGHTLY calcium carbonate-vitamin D3 500 mg-15 mcg (600 unit) tablet 1 tab PO BID Patient Comments: TAKE 1 TABLET BY MOUTH TWICE DAILY clonidine HCl 0.1 mg tablet 0.1 mg PO BID oxybutynin chloride 10 mg tablet extended release 24hr 10 mg PO QHS Patient Comments: TAKE 1 TABLET BY MOUTH EVERY DAY alendronate 70 mg tablet 70 mg PO QWEEK Patient Comments: TAKE 1 TABLET NEEDED EVERY SUN {Q1W1} venlafaxine 150 mg capsule,extended release 24hr 150 mg PO DAILY Patient Comments: TAKE 1 CAPSULE BY MOUTH EVERY DAY propranolol 80 mg capsule,extended release 24 hr 80 mg PO BID Patient Comments: TAKE 1 CAPSULE BY MOUTH TWICE DAILY HOLD FOR SBP <120 montelukast 10 mg tablet 10 mg PO DAILY Patient Comments: TAKE 1 TABLET BY MOUTH EVERY DAY lisinopril 40 mg tablet 40 mg PO DAILY Patient Comments: TAKE 1 TABLET BY MOUTH ONCE DAILY fluticasone furoate-vilanterol [Breo Ellipta] 100-25 mcg/dose blister with device 1 inh INHALATION Q24H Patient Comments: INHALE ONE (1) PUFF BY MOUTH ONCE DAILY potassium chloride 20 mEq tablet extended release 20 meq PO DAILY Patient Comments: TAKE 1 TABLET BY MOUTH ONCE DAILY WITH FOOD torsemide 20 mg tablet 20 mg PO DAILY primidone 50 mg tablet 50 mg PO DAILY Trelegy Ellipta 100-62.5-25 mcg blister with device 1 inh inhalation DAILY loratadine [Loradamed] 10 mg tablet 10 mg PO DAILY alendronate [Fosamax] 70 mg tablet 70 mg PO QWEEK Patient Comments: q sunday Held aspirin 81 mg tablet,chewable 1 tab PO DAILY Hold Instructions: Resume on 01/24/24. Please hold aspirin for the next seven days due to GI bleed Patient Comments: CHEW AND SWALLOW 1 TABLET BY MOUTH ONCE DAILY Referrals / Follow Up: Darcy Clifton MD [Primary Care Provider] - Within 2 Weeks Jonathan Bell DO [Med Staff - Active Staff] - Within 2 Weeks Disposition Disposition (needs filled in before D/C Order can be placed): [facility]
== END 2024-01-17 14:12 | disposition skilled nursing facility (03) | DRG 535 ==
LOC: ED 12:39 → MS3 15:58
PROVIDERS: Internal Medicine Gastroenterology; Physician Assistant; Admitting Provider Internal Medicine; Emergency Provider Emergency Medicine; PCP Internal Medicine; Visit Provider Student in an Organized Health Care Education/Training Program
PROC: 0DJ08ZZ Inspection of Upper Intestinal Tract, Via Natural or Artificial Opening Endoscopic (ICD-10-PCS; CPT 43235; principal; 2024-01-15 11:25)
DX: S32.511A Fracture of superior rim of right pubis, initial encounter for closed fracture (principal); K25.4 Chronic or unspecified gastric ulcer with hemorrhage; D62 Acute posthemorrhagic anemia; N17.9 Acute kidney failure, unspecified; D69.6 Thrombocytopenia, unspecified; I95.9 Hypotension, unspecified; J44.9 Chronic obstructive pulmonary disease, unspecified; I10 Essential (primary) hypertension; F32.A Depression, unspecified; E78.5 Hyperlipidemia, unspecified; W01.0XXA Fall on same level from slipping, tripping and stumbling without subsequent striking against object, initial encounter; G31.84 Mild cognitive impairment of uncertain or unknown etiology; R91.1 Solitary pulmonary nodule; Z66 Do not resuscitate; Z79.51 Long term (current) use of inhaled steroids; Z79.82 Long term (current) use of aspirin; Z79.83 Long term (current) use of bisphosphonates; Z79.899 Other long term (current) drug therapy; Z87.891 Personal history of nicotine dependence
CPT/HCPCS: 36415; 71045; 72100; 73521; 80048; 81001; 82274; 82550; 82728; 83540; 83550; 85014; 85018; 85025; 86850; 86900; 86901; 86920; 88305; 88341; 88342; 94640; 97162; 97166; 97530; 97535; 99284; J7030; J7040; J7050; J7120; P9016; A4216; J2405; J2916

== ENCOUNTER 2024-01-17 14:15 | Inpatient (IN) | payer MEDICARE, MEDICAID, SELFPAY ==
[2024-01-17 14:34] VITALS: BP 184/86; PULSE 82; RESP 18; RESP 20; TEMP 37.2; O2SAT 94; O2SAT 96; BMI 26.0
[2024-01-17] MEDS: Sucralfate 1 GM Tablet PO (16:20)
[2024-01-17] MEDS: Calcium Carb/Vitamin D 1 TABLET Tablet PO (17:32)
[2024-01-17] MEDS: Ferrous Sulfate 325 MG Tablet PO (17:34)
[2024-01-17] MEDS: Losartan Potassium 100 MG Tablet PO (18:30)
[2024-01-17 18:31] VITALS: BP 167/82; PULSE 94
--- NOTE | 2024-01-17 18:32 | NURSING ---
THIS NURSE WALKING BY PT ROOM AND FOUND PT ON FOOT REST TRYING TO GET UP. CALLED FOR HELP AND GOT PT BACK IN [facility]CL[facility]ER. ASKED PT WHERE SHE WAS GOING PT STATED JUST GOING TO STAND UP. PT WEAK IN LEGS. EDUCATED PT ON USING CALL LIGHT. PT STATED SHE UNDER STOOD BUT WHEN ASKED WHAT SHE WOULD DO IF SHE NEEDED HELP WITH ANY THING PT JUST LOOKED AROUND WITH A BLANK FACE. 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 ASKED FOR BED AND CHAIR ALARM AND WAS APPROVED. RN AWARE
--- NOTE | 2024-01-17 20:26 | PCM.HP.STD ---
HPI - General General Date of Admission: 01/17/24 Date of Service: 01/17/24 Chief Complaint: Here for rehabilitation. HPI Narrative 01/12/2024 MARCELLA PATHAK, is a 83 Female who presents to [facility] ED with lower extremity injury. Fell at ID, tripped, fell, landed on buttocks, back. No head injury, no LOC. Unable to walk, stand 2/2 back, hip pain. X-ray showed right pelvic fracture. 01/12/2024 Admit to [facility]. PT/OT, Tylenol for right pelvic fracture. Gentle IV fluids, Hold Lisinopril, Hold Torsemide for MOUSTAPHA. 01/13/2024 Confused, blood pressure low. PT/OT, right pelvic fracture non-operative. Continue IV fluids for MOUSTAPHA, hypotension. Hemoglobin 11 to 7.6, check stool for blood. 01/14/2024 Hemoglobin 7.7. Check iron profile, if stool positive blood, consult GI. 01/15/2024 Hemoglobin 7, GI consulted. Stop IV fluids, Hold Lisinopril, Hold Torsemide for MOUSTAPHA. Transfuse 1 unit PRBC. 01/15/2024 Dr. Bell EGD oozing gastric ulcers, injected, heater probe. Non-bleeding gastric ulcers biopsied. Pantoprazole 40mg bid x 12 weeks. Sucralfate 1gm bid x 4 weeks. 01/16/2024 IV PPI, Hemoglobin 6.5. Transfuse 2 units PRBC, iron IV iron PO. Low platelets resolved. 01/17/2024 Admit to TCU with debility, here for rehabilitation, strengthening, prior to discharge home to [facility]. [facility] Medical History (Updated 01/17/24 @ 20:[address] Curtis Ye MD) COPD (chronic obstructive pulmonary disease) Depression HTN (hypertension) Hyperlipemia Osteoarthritis Home Medications alendronate 70 mg tablet 70 mg PO QWEEK supplement 01/12/24 [History Last Taken Unknown] alendronate 70 mg tablet (Fosamax) 70 mg PO QWEEK oa 01/12/24 [History Last Taken Unknown] aspirin 81 mg chewable tablet 1 tab PO DAILY blood thinner 01/12/24 [History Last Taken 01/14/24] atorvastatin 20 mg tablet 20 mg PO QHS hld 01/12/24 [History Last Taken 01/16/24] calcium carbonate 500 mg-vitamin D3 15 mcg (600 unit) tablet 1 tab PO BID calcuim 01/12/24 [History Last Taken 01/17/24] clonidine HCl 0.1 mg tablet 0.1 mg PO BID BP 01/12/24 [History Last Taken 01/17/24] donepezil 10 mg tablet 10 mg PO QHS dementia 01/12/24 [History Last Taken 01/16/24] fluticasone fur. 100 mcg-umeclid 62.5 mcg-vilant 25 mcg inhalat.powder (Trelegy Ellipta) 1 inh inhalation DAILY COPD 01/12/24 [History Last Taken Unknown] fluticasone furoate 100 mcg-vilanterol 25 mcg/dose inhalation powder (Breo Ellipta) 1 inh inhalation Q24H copd 01/12/24 [History Last Taken Unknown] lisinopril 40 mg tablet 40 mg PO DAILY htn 01/12/24 [History Last Taken 01/17/24] loratadine 10 mg tablet (Loradamed) 10 mg PO DAILY congestion 01/12/24 [History Last Taken 01/17/24] montelukast 10 mg tablet 10 mg PO DAILY asthma 01/12/24 [History Last Taken 01/17/24] oxybutynin chloride 10 mg tablet,extended release 24 hr 10 mg PO QHS htn 01/12/24 [History Last Taken 01/16/24] potassium chloride 20 mEq tablet,extended release 20 meq PO DAILY supplement 01/12/24 [History Last Taken Unknown] primidone 50 mg tablet 50 mg PO DAILY tremors 01/12/24 [History Last Taken 01/17/24] propranolol 80 mg capsule,24 hr,extended release 80 mg PO BID htn 01/12/24 [History Last Taken 01/17/24] torsemide 20 mg tablet 20 mg PO DAILY edema 01/12/24 [History Last Taken Unknown] venlafaxine 150 mg capsule,extended release 24 hr 150 mg PO DAILY depression 01/12/24 [History Last Taken 01/17/24] ferrous sulfate 325 mg (65 mg iron) tablet 325 mg PO BID #60 tabs 01/17/24 [Rx Last Taken Unknown] pantoprazole 40 mg tablet,delayed release 40 mg PO BID reflux #60 tabs 01/17/24 [Rx Last Taken Unknown] sucralfate 1 gram tablet 1 g PO 1HR_ACHS prevent ulcers #90 tabs 01/17/24 [Rx Last Taken Unknown] Allergy/AdvReac Type Severity Reaction Status Date / Time Penicillins Allergy Unknown NEEDS Verified 01/12/24 12:15 FOLLOW-UP Surgical History History of bowel resection Social History (Updated 01/17/24 @ 20:[address] Curtis Ye MD) household members: none housing: assisted living facility Smoking Status: Former smoker alcohol intake: never substance use type: does not use ROS Constitutional Constitutional: Denies chills, fever(s) or weight gain ENT HEENT: Denies headache(s), nasal congestion or nasal discharge Cardiovascular Cardiovascular: Denies chest pain or palpitations Respiratory/Chest Respiratory/Chest: Denies cough, excessive phlegm production or shortness of breath with exertion Gastrointestinal Gastrointestinal: Denies abdominal pain, nausea or vomiting Genitourinary Genitourinary: Denies dysuria Musculoskeletal Musculoskeletal: Denies joint pain or joint swelling Integumentary Integumentary: Denies rash or wounds Neurologic Neurologic: Denies focal weakness, numbness or tingling Psychiatric Psychiatric: Denies anxiety, auditory hallucinations, depression, homicidal ideation or suicidal ideation Vital Signs Vital Signs Vital Signs: 01/17/24 14:34 01/17/24 14:34 01/17/24 18:31 Temperature 98.9 F Temperature Source Temporal Pulse Rate 82 94 Pulse Rhythm Regular Pulse Strength Normal (2+) Respiratory Rate 20 H 18 Respiratory Effort Normal Non-Labored Respiratory Depth Normal Respiratory Pattern Normal Blood Pressure 184/86 H 167/82 H Blood Pressure Mean 118 110 Blood Pressure Source Monitor Monitor Blood Pressure Position Semi-Fowlers Sitting Blood Pressure Location Left Arm Left Arm Pulse Ox 94 96 Oxygen Delivery Method Room Air Room Air Weight Weight: 68.765 kg Body Mass Index (BMI) 26.0 Physical Exam Const alert General Appearance: cooperative HEENT normocephalic Eyes PERRL and EOMs intact bilaterally Neck supple, no JVD and no carotid bruits Resp normal respiratory effort, normal air movement and clear to auscultation bilaterally Cardio regular rate and regular rhythm GI normal to inspection, nondistended, normoactive bowel sounds, non-tender and non-distended Extremity normal capillary refill General Extremity: Negative for edema Skin no rashes or lesions noted General Skin Exam: no breakdown Psych affect normal Appearance: appropriate Assessment & Plan Assessment/Plan (1) Debility: (2) Pelvis fracture, right: (3) Gastric ulcer: (4) Acute blood loss anemia: (5) Upper GI bleed: (6) HTN (hypertension): (7) Hyperlipemia: (8) COPD (chronic obstructive pulmonary disease): (9) Depression: (10) Osteoarthritis: (11) Osteoporosis: (12) Alzheimer disease: (13) Allergic rhinitis: (14) Overactive bladder: (15) Hypokalemia: (16) Tremor: PLAN: Plan 83 year old female with below past medical history hospitalized for right pelvic fracture, upper gi bleed 2/2 gastric ulcer, complicated by confusion, thrombocytopenia, admitted to TCU with debility, here for rehabilitation, strengthening, prior to discharge home to [facility]. Debility - PT/OT. Cognition - ST. Pain - Tylenol 1000mg q6 prn pain (1-10). Bowel - senna/colace 1 tablet bid, Magnesium citrate 300ml daily prn. Adult immunization - Administer pneumonia vaccine, covid vaccine, flu vaccine as appropriate. DVT prophylaxis - Hold, gi bleed. Osteoporosis - Alendronate 70mg qweek. Hyperlipidemia - Atorvastatin 20mg qhs. Calcium deficiency - Calcium D bid. Hypertension - Losartan 100mg daily, Clonidine 0.1mg tid. Alzheimer Disease - Donepezil 10mg qhs. Iron deficiency anemia - Ferrex 150mg bid, Vitamin C 500mg bid. COPD - Fluticasone/salmeterol 232-14 1 puff q12, Incruse 1 puff daily. Edema - Furosemide 40mg daily. Allergic Rhinitis - Loratadine 10mg daily, Singulair 10mg daily. Overactive bladder - Oxybutynin 10mg qhs. Gastric ulcer - Pantoprazole 40mg bid, Sucralfate 1gm bid. Hypokalemia - KCL 20meq daily. Tremor - Primidone 50mg daily, Propranolol 80mg bid. 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
[2024-01-17] MEDS: cloNIDine HCl 0.1 MG Tablet 0.100000000000000006 MG PO (21:53)
[2024-01-17] MEDS: Oxybutynin 5 MG Tablet 10 MG PO (21:53)
[2024-01-17] MEDS: Fluticasone/Salmeterol 232-14 Inhaler 1 PUFF INHALATION (21:53)
[2024-01-17] MEDS: Iron Polysaccharide Complex 150 MG CAPSULE PO (21:53)
[2024-01-17] MEDS: Donepezil HCl 10 MG Tablet PO (21:53)
[2024-01-17] MEDS: Propranolol LA 80 MG Capsule PO (21:53)
[2024-01-17] MEDS: Pantoprazole Sodium 40 MG Tablet PO (21:54)
[2024-01-17] MEDS: 0.9% Saline Lock 10 ML Syringe IV (21:54)
[2024-01-17] MEDS: Senna/Docusate Sodium 1 Tablet PO (21:54)
[2024-01-17] MEDS: Acetaminophen 500 MG Tablet 1000 MG PO (21:54)
[2024-01-17] MEDS: Atorvastatin Calcium 20 MG Tablet PO (21:54)
[2024-01-17 22:14] VITALS: BP 170/80; PULSE 88
[2024-01-18 06:01] LABS: Absolute Lymphocyte Count 2.05 X10^3/uL (0.83-4.51); Absolute Neutrophil Count 7.8 X10^3/uL (2.0-7.7); Basophil# 0.07 X10^3/uL; Basophil% 0.6 % (0-1); Eosinophil# 0.32 X10^3/uL; Eosinophils% 2.7 % (0-5); Hematocrit 29.5 % (37-47); Hemoglobin 9.3 g/dL (12.0-15.0); Lymphocyte # 2.05 X10^3/ul (0.83-4.51); Lymphocyte % 17.6 % (19-41); Mean Corp Hgb Conc 31.5 g/dL (32-36); Mean Corpuscular Hgb 29.2 pg (27.0-32.0); Mean Corpuscular Volume 92.5 fL (81-99); Mean Platelet Vol. 9.1 fl (6.2-12.0); Monocyte# 1.32 X10^3/uL; Monocyte% 11.3 % (0-10); NRBC Flagged by Analyzer 0.6 % (0-5); Neutrophil # 7.75 X10^3/uL (2.7-7.7); Neutrophil % 66.4 % (47-70); Platelet Count 259 K/mm3 (150-450); RBC Distribution Width CV 15.1 % (11.6-14.6); RBC Distribution Width SD 50.1 fl (35.1-43.9); Red Blood Count 3.19 M/mm3 (4.2-5.4); White Blood Count 11.7 K/mm3 (4.4-11.0)
[2024-01-18] MEDS: Sucralfate 1 GM Tablet PO ×2 (06:03→16:17)
[2024-01-18] MEDS: cloNIDine HCl 0.1 MG Tablet 0.100000000000000006 MG PO ×3 (06:03→21:20)
[2024-01-18 06:09] VITALS: BP 156/74; PULSE 71
[2024-01-18 06:10] VITALS: PULSE 71; RESP 16; O2SAT 99
[2024-01-18 06:27] LABS: Anion Gap 1 (5-15); BUN 11 mg/dL (7-18); BUN/Creat Ratio 20.1 RATIO (10-20); Calcium,Total 8.6 mg/dL (8.5-10.1); Chloride 107 mmol/L (98-107); Creatinine, Serum 0.55 mg/dL (0.55-1.02); EST Glomerular Filtration Rate 113 mL/min (>60); Est Glom Filt Rate - Afr Amer 137 mL/min (>60); Estimated Creatinine Clearance 52.52 ml/min; Glucose 98 mg/dL (74-106); Potassium 3.9 mmol/L (3.5-5.1); Sodium Level 138 mmol/L (136-145)
[2024-01-18] MEDS: Potassium Chloride Oral Tablet 20 MEQ PO (09:27)
[2024-01-18] MEDS: Calcium Carb/Vitamin D 1 TABLET Tablet PO ×2 (09:27→17:34)
[2024-01-18] MEDS: Propranolol LA 80 MG Capsule PO ×2 (09:28→21:20)
[2024-01-18] MEDS: Pantoprazole Sodium 40 MG Tablet PO ×2 (09:28→21:20)
[2024-01-18] MEDS: Ascorbic Acid 500 MG Tablet PO ×2 (09:28→17:34)
[2024-01-18] MEDS: Furosemide 40 MG Tablet PO (09:28)
[2024-01-18] MEDS: Loratadine 10 MG Tablet PO (09:28)
[2024-01-18] MEDS: Iron Polysaccharide Complex 150 MG CAPSULE PO ×2 (09:28→21:19)
[2024-01-18] MEDS: Venlafaxine XR 150 MG Capsule PO (09:29)
[2024-01-18] MEDS: Montelukast 10 MG Tablet PO (09:29)
[2024-01-18] MEDS: Senna/Docusate Sodium 1 Tablet PO (09:29)
[2024-01-18] MEDS: Losartan Potassium 100 MG Tablet PO (09:29)
[2024-01-18] MEDS: Primidone 50 MG Tablet PO (09:29)
[2024-01-18] MEDS: Fluticasone/Salmeterol 232-14 Inhaler 1 PUFF INHALATION ×2 (09:30→21:21)
[2024-01-18] MEDS: Umeclidinium Bromide Inhaler 1 PUFF INHALATION (09:31)
--- NOTE | 2024-01-18 11:06 | PCM.PN.DRR ---
TCU RX Drug Regimen Review Subjective/Objective Subjective/Objective: Subjective: 83 YOF admitted to TCU 01/17/24 s/p hospitalization for a fall/ anemia. Patient was worked up while hospitalized for anemia/ GIB. Of note; patient received several units of blood during admission. Admitted to TCU 01/17/24 for rehabilitation and strengthening prior to discharge to an assisted living facility. Objective: Allergies Penicillins Allergy (Unknown, Verified 01/12/24 12:15) NEEDS FOLLOW-UP Current Medications Generic Name Dose Route Start Last Admin Trade Name Freq PRN Reason Stop Dose Admin Acetaminophen 1,000 mg 01/18/24 14:00 Acetaminophen 500 Mg Tablet PO Q8 MIGUELITO Alendronate Sodium 70 mg 01/20/24 06:00 Alendronate Sodium 70 Mg Tablet PO Vu@0600 COUNTS INCLUDE 234 BEDS AT [facility] Ascorbic Acid 500 mg 01/18/24 08:00 01/18/24 09:28 Ascorbic Acid 500 Mg Tablet PO 500 mg BIDCM MIGUELITO Administration Atorvastatin Calcium 20 mg 01/17/24 22:00 01/17/24 21:54 Atorvastatin Calcium 20 Mg Tablet PO 20 mg QHS MIGUELITO Administration Calcium/Vitamin D 1 tablet 01/17/24 17:00 01/18/24 09:27 Calcium Carb/Vitamin D 1 Tablet Tablet PO 1 tablet BIDCM MIGUELITO Administration Clonidine 0.1 mg 01/17/24 22:00 01/18/24 06:03 Clonidine Hcl 0.1 Mg Tablet PO 0.1 mg TID MIGUELITO Administration Protocol Donepezil HCl 10 mg 01/17/24 22:00 01/17/24 21:53 Donepezil Hcl 10 Mg Tablet PO 10 mg QHS MIGUELITO Administration Furosemide 40 mg 01/18/24 10:00 01/18/24 09:28 Furosemide 40 Mg Tablet PO 40 mg DAILY MIGUELITO Administration Loratadine 10 mg 01/18/24 10:00 01/18/24 09:28 Loratadine 10 Mg Tablet PO 10 mg DAILY MIGUELITO Administration Losartan Potassium 100 mg 01/18/24 10:00 01/18/24 09:29 Losartan Potassium 100 Mg Tablet PO 100 mg DAILY MIGUELITO Administration Protocol Magnesium Citrate 300 ml 01/17/24 20:45 Magnesium Citrate 300 Ml PO DAILY PRN Constipation Montelukast Sodium 10 mg 01/18/24 10:00 01/18/24 09:29 Montelukast 10 Mg Tablet PO 10 mg DAILY MIGUELITO Administration Oxybutynin Chloride 10 mg 01/17/24 22:00 01/17/24 21:53 Oxybutynin 5 Mg Tablet PO 10 mg QHS MIGUELITO Administration Pantoprazole Sodium 40 mg 01/17/24 22:00 01/18/24 09:28 Pantoprazole Sodium 40 Mg Tablet PO 40 mg BID MIGUELITO Administration Polysaccharide Iron Complex 150 mg 01/17/24 22:00 01/18/24 09:28 Iron Polysaccharide Complex 150 Mg Capsule PO 150 mg BID MIGUELITO Administration Potassium Chloride 20 meq 01/18/24 08:00 01/18/24 09:27 Potassium Chloride Oral Tablet 20 Meq PO 20 meq DAILYCM MIGUELITO Administration Primidone 50 mg 01/18/24 10:00 01/18/24 09:29 Primidone 50 Mg Tablet PO 50 mg DAILY MIGUELITO Administration Propranolol HCl 80 mg 01/17/24 22:00 01/18/24 09:28 Propranolol La 80 Mg Capsule PO 80 mg BID MIGUELITO Administration Protocol Fluticasone/Salmeterol 1 puff 01/17/24 22:00 01/18/24 09:30 Fluticasone/Salmeterol 232-14 Inhaler INHALATION 1 puff Q12 MIGUELITO Administration Senna/Docusate Sodium 1 tablet 01/17/24 22:00 01/18/24 09:29 Senna/Docusate Sodium 1 Tablet PO 1 tablet BID MIGUELITO Administration Sodium Chloride 10 - 40 ml 01/17/24 15:48 01/17/24 21:54 0.9% Saline Lock 10 Ml Syringe IV 10 ml UD PRN Administration SALINE FLUSH Sucralfate 1 gm 01/18/24 07:00 01/18/24 06:03 Sucralfate 1 Gm Tablet PO 1 gm BID@0700,1600 MIGUELITO Administration Tramadol HCl 50 mg 01/18/24 07:35 Tramadol 50 Mg Tablet PO Q6H PRN PRN Pain Score 1-10 Tuberculin PPD 0.1 ml 01/25/24 10:00 Tuberculin,Purif.Prot.Deriv. 50 Tu/Ml Vial ID 01/25/24 10:01 X1 ONE Umeclidinium [place] 1 puff 01/18/24 10:00 01/18/24 09:31 Umeclidinium [place] Inhaler INHALATION 1 puff DAILY MIGUELITO Administration Venlafaxine HCl 150 mg 01/18/24 10:00 01/18/24 09:29 Venlafaxine Xr 150 Mg Capsule PO 150 mg DAILY MIGUELITO Administration Problem List (Updated 01/17/24 @ 20:[address] Curtis Ye MD) Tremor (Acute) Hypokalemia (Acute) Overactive bladder (Acute) Allergic rhinitis (Acute) Alzheimer disease (Acute) Osteoporosis (Acute) Osteoarthritis (Acute) Depression (Acute) Hyperlipemia (Acute) HTN (hypertension) (Chronic) Upper GI bleed (Acute) Acute blood loss anemia (Acute) Gastric ulcer (Acute) Pelvis fracture, right (Acute) Debility (Acute) COPD (chronic obstructive pulmonary disease) (Chronic) Vital Signs Temp Pulse Resp BP Pulse Ox O2 Del Method 98.9 F 71 16 156/74 H 99 Room Air 01/17/24 14:34 01/18/24 06:10 01/18/24 06:10 01/18/24 06:09 01/18/24 06:10 01/18/24 06:10 Oxygen Delivery Method Room Air Weight: 68.765 kg Body Mass Index (BMI) 26.0 Sodium 138 mmol/L (136-145) 01/18/24 05:48 Potassium 3.9 mmol/L (3.5-5.1) 01/18/24 05:48 Chloride 107 mmol/L (98-107) 01/18/24 05:48 Carbon Dioxide 30.0 mmol/L (21.0-32.0) 01/18/24 05:48 Anion Gap 1 (5-15) L 01/18/24 05:48 BUN 11 mg/dL (7-18) 01/18/24 05:48 Creatinine 0.55 mg/dL (0.55-1.02) 01/18/24 05:48 Est GFR (MDRD) Af Amer 137 mL/min (>60) 01/18/24 05:48 Est GFR (MDRD) Non-Af 113 mL/min (>60) 01/18/24 05:48 BUN/Creatinine Ratio 20.1 RATIO (10-20) H 01/18/24 05:48 Glucose 98 mg/dL (74-106) 01/18/24 05:48 Assessment/Plan: 1. Pain: Tylenol 1000mg PO Q8h, Tramadol 50mg PO Q6h PRN Pain 1-10. Please continue to monitor for increased/decreased S/S pain, PRN medication usage, renal function (Crcl 52 mL/min on 01/17). - To date, the patient has required zero doses of PRN medication. Patient's pain appears managed at this time. 2. Gastric Ulcer/ Hx GIB: Pantoprazole 40mg PO BID, Sucralfate 1g PO BID. Please continue to monitor for S/S recurrent GIB, stomach upset/nausea, headache, B12 levels (last 224pg/mL on 02/2023). 3. Iron Deficiency anemia: Ferrex 150mg PO BID, Vitamin C 500mg PO BID. Please continue to monitor for GI upset, iron studies (last completed 01/14 during admission), S/S recurrent GIB. 4. HTN/ HLD/ Edema: Lipitor 20mg PO QHS, Clonidine 0.1mg PO TID, Lasix 40mg PO Daily, Losartan 100mg PO Daily, KCl 20meQ PO Daily. Please continue to monitor BP (range 156-170/74-82), SCr (0.55 on 01/17), potassium (3.9 on 01/17), fluid status, S/S worsening edema, lipid panel annually or sooner if clinically indicated (labs WNL 09/2023). 5. COPD: Incruse 1 puff daily, Airduo 1 puff BID. Please continue to monitor heart rate (range 71-94), S/S SOB/wheezing, S/S thrush. 6. Osteoporosis: Fosamax 70mg PO once weekly, Os-Ulysses + D 1 tab BID. Please continue to monitor calcium levels (8.6 on 01/17), renal function, regular dental exams annually. Please ensure when Fosamax given, it is taken on an empty stomach first thing in the morning. Make sure patient remains in an upright position after administration. 7. Alzheimer Disease: Aricept 10mg PO QHS. Please continue to monitor for vivid dreams, nausea, headache. 8. Tremor: Primidone 50mg PO Daily, Propranolol 80mg PO BID. Please continue to monitor for dizziness, drowsiness, liver function tests (last completed 10/11, WNL), pulse (range 71-94), dizziness. 9. Overactive Bladder: Oxybutynin 10mg PO QHS. Please continue to monitor for urinary retention, S/S UTI, dizziness, drowsiness, nausea. This is a Beer's Criteria medication which can increase the risk of delirium in patients >65 years of age. Patient has a history of dementia, and is at risk for delirium. Please evaluate use to see if an alternate option would be clinically indicated, thank you. 10. Allergic Rhinitis: Claritin 10mg PO Daily, Singulair 10mg PO Daily. Please continue to monitor for symptom management 11. Bowel: Senna/Docusate 1 tab PO BID, Magnesium Citrate 300mL Daily PRN. Please continue to monitor for increased/decreased constipation and/or diarrhea. - To date, the patient has not had a bowel movement (admitted <24hrs ago). If patient does not have a BM in the next 48hrs, please consider administering PRN medications to facilitate a bowel movement. Assessment/Plan for indications treated with psychotropic medications: 1 . Depression: Effexor XR 150mg PO Daily. Please consider a GDR by 06/2024 if clinically indicated, thank you. Medical chart and medication regimen reviewed. The following medication irregularities or issues were identified: 1. HTN: Clonidine 0.1mg PO TID, Losartan 100mg PO Daily. Patient's BP has been elevated since admission (156/74, 170/50, 167/82). Please consider adding additional BP agent or adjusting dose of current medications if clinically indicated, thank you. 2. Patient on several medications that can affect liver function (Tylenol, primidone). Please consider obtaining LFT labs since it has been > 1 year since last done if clinically indicated, thank you. 3. Overactive Bladder: Oxybutynin 10mg PO QHS. Please continue to monitor for urinary retention, S/S UTI, dizziness, drowsiness, nausea. This is a Beer's Criteria medication which can increase the risk of delirium in patients >65 years of age. Patient has a history of dementia, and is at risk for delirium. Please evaluate use to see if an alternate option would be clinically indicated, thank you. Date Date of Note:: 01/18/24
[2024-01-18] MEDS: Tuberculin,Purif.prot.deriv. 50 TU/ML Vial 0.100000000000000006 ML ID (12:00)
[2024-01-18] MEDS: Acetaminophen 500 MG Tablet 1000 MG PO ×2 (13:32→21:19)
[2024-01-18 13:35] VITALS: BP 127/58; PULSE 75; RESP 16; TEMP 36.2; O2SAT 96
--- NOTE | 2024-01-18 13:36 | NURSING ---
Photographer Assistant Note, Activity Asset: Renaldo Coffey is independent in her choice of daily activities. While on TCU she will read books, love stories, watch tv, work on word puzzles and asked for coloring supplies. Her family will visit with her and she welcomes visits from the black and white printer operator and therapy dog. Staff will remind her of weekly activities and respect her right to say no.
--- NOTE | 2024-01-18 15:10 | CASEMGMT ---
Social Work Met with patient to complete initial assessment. Introduced self and role. Verified contacts. Pt unsure if she has advance directives. Pt confirmed code status as DNR-CCA, no intubation. Educated to [facility] with NRD 3/4 and continued stay is not guaranteed with each review. Pt's goal is to return to [facility]. SW will continue to follow for DC planning. Tricia Price, INTEGRATION SOFTWARE ENGINEER BOILER MECHANIC
[2024-01-18] MEDS: Oxybutynin 5 MG Tablet 10 MG PO (21:19)
[2024-01-18] MEDS: Donepezil HCl 10 MG Tablet PO (21:20)
[2024-01-18] MEDS: Atorvastatin Calcium 20 MG Tablet PO (21:20)
[2024-01-19] MEDS: cloNIDine HCl 0.1 MG Tablet 0.100000000000000006 MG PO ×3 (05:02→20:37)
[2024-01-19] MEDS: Acetaminophen 500 MG Tablet 1000 MG PO ×3 (05:03→20:39)
[2024-01-19] MEDS: Sucralfate 1 GM Tablet PO ×2 (06:06→16:17)
[2024-01-19 06:51] LABS: Hematocrit 28.6 % (37-47); Hemoglobin 9.1 g/dL (12.0-15.0)
[2024-01-19] MEDS: Potassium Chloride Oral Tablet 20 MEQ PO (09:55)
[2024-01-19] MEDS: Calcium Carb/Vitamin D 1 TABLET Tablet PO ×2 (09:55→17:28)
[2024-01-19] MEDS: Ascorbic Acid 500 MG Tablet PO ×2 (09:56→17:29)
[2024-01-19] MEDS: Iron Polysaccharide Complex 150 MG CAPSULE PO ×2 (09:57→20:38)
[2024-01-19] MEDS: Losartan Potassium 100 MG Tablet PO (09:57)
[2024-01-19] MEDS: Loratadine 10 MG Tablet PO (09:57)
[2024-01-19] MEDS: Venlafaxine XR 150 MG Capsule PO (09:58)
[2024-01-19] MEDS: Montelukast 10 MG Tablet PO (09:59)
[2024-01-19] MEDS: Propranolol LA 80 MG Capsule PO ×2 (09:59→20:37)
[2024-01-19] MEDS: Furosemide 40 MG Tablet PO (09:59)
[2024-01-19] MEDS: Senna/Docusate Sodium 1 Tablet PO ×2 (10:00→20:39)
[2024-01-19] MEDS: Pantoprazole Sodium 40 MG Tablet PO ×2 (10:00→20:37)
[2024-01-19] MEDS: Primidone 50 MG Tablet PO (10:01)
[2024-01-19] MEDS: Umeclidinium Bromide Inhaler 1 PUFF INHALATION (10:07)
[2024-01-19] MEDS: Fluticasone/Salmeterol 232-14 Inhaler 1 PUFF INHALATION ×2 (10:08→20:41)
[2024-01-19 10:14] VITALS: BP 126/57; PULSE 76
[2024-01-19 14:20] VITALS: BP 143/69; PULSE 71; RESP 18; TEMP 36.6; O2SAT 95
[2024-01-19] MEDS: Donepezil HCl 10 MG Tablet PO (20:36)
[2024-01-19] MEDS: MELATONIN 10 MG TABLET PO (20:37)
[2024-01-19] MEDS: Oxybutynin 5 MG Tablet 10 MG PO (20:38)
[2024-01-19] MEDS: Atorvastatin Calcium 20 MG Tablet PO (20:40)
[2024-01-20 05:06] LABS: Hematocrit 30.1 % (37-47); Hemoglobin 9.6 g/dL (12.0-15.0)
[2024-01-20] MEDS: Sucralfate 1 GM Tablet PO ×2 (05:48→16:13)
[2024-01-20] MEDS: Alendronate Sodium 70 MG Tablet PO (05:49)
[2024-01-20] MEDS: cloNIDine HCl 0.1 MG Tablet 0.100000000000000006 MG PO ×3 (05:49→20:42)
[2024-01-20] MEDS: Acetaminophen 500 MG Tablet 1000 MG PO ×3 (05:49→20:42)
[2024-01-20] MEDS: Fluticasone/Salmeterol 232-14 Inhaler 1 PUFF INHALATION ×2 (07:45→20:41)
[2024-01-20] MEDS: Umeclidinium Bromide Inhaler 1 PUFF INHALATION (07:46)
[2024-01-20] MEDS: Calcium Carb/Vitamin D 1 TABLET Tablet PO ×2 (07:50→07:52)
[2024-01-20] MEDS: Ascorbic Acid 500 MG Tablet PO ×2 (07:50→07:52)
[2024-01-20] MEDS: Potassium Chloride Oral Tablet 20 MEQ PO ×2 (07:50→07:52)
[2024-01-20] MEDS: Loratadine 10 MG Tablet PO (07:51)
[2024-01-20] MEDS: Venlafaxine XR 150 MG Capsule PO (07:52)
[2024-01-20] MEDS: Losartan Potassium 100 MG Tablet PO (07:52)
[2024-01-20] MEDS: Iron Polysaccharide Complex 150 MG CAPSULE PO ×2 (07:53→20:42)
[2024-01-20] MEDS: Furosemide 40 MG Tablet PO (07:54)
[2024-01-20] MEDS: Propranolol LA 80 MG Capsule PO ×2 (07:54→20:42)
[2024-01-20] MEDS: Primidone 50 MG Tablet PO (07:54)
[2024-01-20] MEDS: Senna/Docusate Sodium 1 Tablet PO (07:55)
[2024-01-20] MEDS: Pantoprazole Sodium 40 MG Tablet PO ×2 (07:55→20:43)
[2024-01-20] MEDS: Montelukast 10 MG Tablet PO (07:55)
[2024-01-20 08:02] VITALS: BP 162/74; PULSE 74
[2024-01-20 10:00] VITALS: PULSE 84; RESP 18; O2SAT 93
[2024-01-20 13:48] VITALS: BP 173/78; PULSE 82; RESP 16; TEMP 37.1; O2SAT 95
[2024-01-20] MEDS: MELATONIN 10 MG TABLET PO (20:43)
[2024-01-20] MEDS: Oxybutynin 5 MG Tablet 10 MG PO (20:43)
[2024-01-20] MEDS: Donepezil HCl 10 MG Tablet PO (20:44)
[2024-01-20] MEDS: Atorvastatin Calcium 20 MG Tablet PO (20:44)
[2024-01-21] MEDS: cloNIDine HCl 0.1 MG Tablet 0.100000000000000006 MG PO ×3 (05:35→21:35)
[2024-01-21] MEDS: Sucralfate 1 GM Tablet PO ×2 (05:35→16:14)
[2024-01-21] MEDS: Acetaminophen 500 MG Tablet 1000 MG PO ×3 (05:36→21:36)
[2024-01-21 06:27] LABS: Hematocrit 29.2 % (37-47); Hemoglobin 9.2 g/dL (12.0-15.0)
[2024-01-21 08:04] VITALS: BP 114/89; PULSE 71; RESP 18; O2SAT 92
[2024-01-21] MEDS: Ascorbic Acid 500 MG Tablet PO ×2 (08:06→17:53)
[2024-01-21] MEDS: Umeclidinium Bromide Inhaler 1 PUFF INHALATION (08:06)
[2024-01-21] MEDS: Furosemide 40 MG Tablet PO (08:07)
[2024-01-21] MEDS: Potassium Chloride Oral Tablet 20 MEQ PO (08:07)
[2024-01-21] MEDS: Primidone 50 MG Tablet PO (08:08)
[2024-01-21] MEDS: Senna/Docusate Sodium 1 Tablet PO (08:08)
[2024-01-21] MEDS: Loratadine 10 MG Tablet PO (08:08)
[2024-01-21] MEDS: Pantoprazole Sodium 40 MG Tablet PO ×2 (08:08→21:36)
[2024-01-21] MEDS: Calcium Carb/Vitamin D 1 TABLET Tablet PO ×2 (08:08→17:52)
[2024-01-21] MEDS: Iron Polysaccharide Complex 150 MG CAPSULE PO ×2 (08:08→21:35)
[2024-01-21] MEDS: Montelukast 10 MG Tablet PO (08:09)
[2024-01-21] MEDS: Propranolol LA 80 MG Capsule PO ×2 (08:09→21:35)
[2024-01-21] MEDS: Venlafaxine XR 150 MG Capsule PO (08:09)
[2024-01-21] MEDS: Fluticasone/Salmeterol 232-14 Inhaler 1 PUFF INHALATION ×2 (08:10→21:35)
[2024-01-21] MEDS: Losartan Potassium 100 MG Tablet PO (08:14)
--- NOTE | 2024-01-21 10:43 | NURSING ---
Discussed covid vaccine with patient, she said she'd like to take. Discussed with dtr who says she's pretty sure her mother had it this past fall.
[2024-01-21 14:15] VITALS: BP 159/71; PULSE 72; RESP 20; TEMP 36.9; O2SAT 93
[2024-01-21 21:35] VITALS: PULSE 74; RESP 16; O2SAT 97
[2024-01-21] MEDS: Oxybutynin 5 MG Tablet 10 MG PO (21:35)
[2024-01-21] MEDS: Atorvastatin Calcium 20 MG Tablet PO (21:35)
[2024-01-21] MEDS: Donepezil HCl 10 MG Tablet PO (21:35)
[2024-01-21] MEDS: MELATONIN 10 MG TABLET PO (21:36)
[2024-01-22] MEDS: cloNIDine HCl 0.1 MG Tablet 0.100000000000000006 MG PO ×3 (05:54→22:09)
[2024-01-22] MEDS: Sucralfate 1 GM Tablet PO ×2 (05:54→16:26)
[2024-01-22] MEDS: Acetaminophen 500 MG Tablet 1000 MG PO ×3 (05:54→22:10)
[2024-01-22 06:00] VITALS: PULSE 72; RESP 18; O2SAT 96
[2024-01-22 06:12] LABS: Hematocrit 29.7 % (37-47); Hemoglobin 9.2 g/dL (12.0-15.0)
[2024-01-22] MEDS: Loratadine 10 MG Tablet PO (09:34)
[2024-01-22] MEDS: Ascorbic Acid 500 MG Tablet PO ×2 (09:34→18:06)
[2024-01-22] MEDS: Primidone 50 MG Tablet PO (09:34)
[2024-01-22] MEDS: Calcium Carb/Vitamin D 1 TABLET Tablet PO ×2 (09:34→18:05)
[2024-01-22] MEDS: Potassium Chloride Oral Tablet 20 MEQ PO (09:34)
[2024-01-22] MEDS: Montelukast 10 MG Tablet PO (09:34)
[2024-01-22] MEDS: Propranolol LA 80 MG Capsule PO ×2 (09:35→22:10)
[2024-01-22] MEDS: Venlafaxine XR 150 MG Capsule PO (09:35)
[2024-01-22] MEDS: Fluticasone/Salmeterol 232-14 Inhaler 1 PUFF INHALATION ×2 (09:35→22:10)
[2024-01-22] MEDS: Furosemide 40 MG Tablet PO (09:35)
[2024-01-22] MEDS: Losartan Potassium 100 MG Tablet PO (09:35)
[2024-01-22] MEDS: Iron Polysaccharide Complex 150 MG CAPSULE PO ×2 (09:35→22:10)
[2024-01-22] MEDS: Pantoprazole Sodium 40 MG Tablet PO ×2 (09:35→22:10)
[2024-01-22] MEDS: Umeclidinium Bromide Inhaler 1 PUFF INHALATION (09:35)
[2024-01-22 12:09] VITALS: BMI 25.2
[2024-01-22] MEDS: traMADol 50 MG Tablet PO (13:54)
[2024-01-22 15:34] VITALS: BP 147/77; PULSE 69; RESP 16; TEMP 36.4; O2SAT 96
[2024-01-22] MEDS: Oxybutynin 5 MG Tablet 10 MG PO (22:09)
[2024-01-22] MEDS: Donepezil HCl 10 MG Tablet PO (22:09)
[2024-01-22] MEDS: Atorvastatin Calcium 20 MG Tablet PO (22:10)
[2024-01-22] MEDS: Senna/Docusate Sodium 1 Tablet PO (22:10)
[2024-01-22] MEDS: MELATONIN 10 MG TABLET PO (22:10)
[2024-01-23 05:51] LABS: Hematocrit 29.3 % (37-47); Hemoglobin 9.2 g/dL (12.0-15.0)
[2024-01-23] MEDS: Sucralfate 1 GM Tablet PO ×2 (06:11→16:32)
[2024-01-23] MEDS: cloNIDine HCl 0.1 MG Tablet 0.100000000000000006 MG PO ×3 (06:11→20:16)
[2024-01-23] MEDS: Acetaminophen 500 MG Tablet 1000 MG PO ×3 (06:12→20:15)
[2024-01-23 06:15] VITALS: BP 151/68; PULSE 64
[2024-01-23] MEDS: Ascorbic Acid 500 MG Tablet PO ×2 (07:52→17:58)
[2024-01-23] MEDS: Calcium Carb/Vitamin D 1 TABLET Tablet PO ×2 (07:52→17:57)
[2024-01-23] MEDS: Loratadine 10 MG Tablet PO (07:52)
[2024-01-23] MEDS: Potassium Chloride Oral Tablet 20 MEQ PO (07:52)
[2024-01-23] MEDS: Propranolol LA 80 MG Capsule PO ×2 (07:53→20:16)
[2024-01-23] MEDS: Losartan Potassium 100 MG Tablet PO (07:53)
[2024-01-23] MEDS: Venlafaxine XR 150 MG Capsule PO (07:53)
[2024-01-23] MEDS: Iron Polysaccharide Complex 150 MG CAPSULE PO ×2 (07:53→20:16)
[2024-01-23] MEDS: Pantoprazole Sodium 40 MG Tablet PO ×2 (07:54→20:17)
[2024-01-23] MEDS: Furosemide 40 MG Tablet PO (07:54)
[2024-01-23] MEDS: Senna/Docusate Sodium 1 Tablet PO (07:54)
[2024-01-23] MEDS: Primidone 50 MG Tablet PO (07:54)
[2024-01-23] MEDS: Montelukast 10 MG Tablet PO (07:55)
[2024-01-23] MEDS: Fluticasone/Salmeterol 232-14 Inhaler 1 PUFF INHALATION ×2 (07:55→20:14)
[2024-01-23] MEDS: Umeclidinium Bromide Inhaler 1 PUFF INHALATION (07:55)
[2024-01-23 08:04] VITALS: BP 155/62; PULSE 72
--- NOTE | 2024-01-23 09:17 | CASEMGMT ---
Social Work SW sent updated clinicals to [facility] via [facility] to ensure pt can return as pt is not [place]. Will await outcome. Tricia Price, DECORATING CONSULTANT WHIP SAWYER
[2024-01-23 13:10] VITALS: BP 140/57; PULSE 73; PULSE 74; RESP 18; O2SAT 96
--- NOTE | 2024-01-23 14:14 | CASEMGMT ---
Addendum entered by Tricia Price 01/24/24 15:04: SW received update from family that [facility] is their [facility] for DC. SW updated [place] and [facility]. Will continue to follow. Original Note: Social Work IDT met with patient and family members for care plan meeting. Discussed patient's progress in PT/OT/ST/SN. Educated to [facility] insurance with NRD 01/28, EDC 01/30 and day 21 is 02/05. HIRA sent updated clinicals to [facility] via [facility] to inquire about return. [facility] accept pt in return at known current LOF and can provide part B therapies. Family expressed some concern with [facility] being able to meet her increased needs, but will see how pt progresses in the next week. Family does not want pt to DC to [facility] SNF. SW offered to provide lists of other SNF options. Family agreed and requested lists in [facility] and [facility]. SW provided a printed list and emailed list to son with quality and resource data via [employer]. Educated to utilizing Medicare.gov/nursinghomecompare to gather [facility] list or research SNFs. Family appreciative and initially would like a [facility] to [facility] [place] [facility]. SW placed referrals via [facility]. -- [facility] accept. SW will continue to follow. DONTE UpW
[2024-01-23 15:16] VITALS: TEMP 36.7; O2SAT 95
[2024-01-23] MEDS: Oxybutynin 5 MG Tablet 10 MG PO (20:13)
[2024-01-23] MEDS: Donepezil HCl 10 MG Tablet PO (20:13)
[2024-01-23] MEDS: Atorvastatin Calcium 20 MG Tablet PO (20:14)
[2024-01-23] MEDS: MELATONIN 10 MG TABLET PO (20:14)
[2024-01-24] MEDS: cloNIDine HCl 0.1 MG Tablet 0.100000000000000006 MG PO ×3 (05:30→19:53)
[2024-01-24] MEDS: Acetaminophen 500 MG Tablet 1000 MG PO ×3 (05:30→19:52)
[2024-01-24 05:38] VITALS: PULSE 68; RESP 16; O2SAT 97
[2024-01-24] MEDS: Sucralfate 1 GM Tablet PO ×2 (06:54→17:13)
[2024-01-24 08:02] VITALS: BP 135/80; PULSE 74; RESP 16; O2SAT 95
[2024-01-24] MEDS: Pantoprazole Sodium 40 MG Tablet PO ×2 (08:03→19:53)
[2024-01-24] MEDS: Calcium Carb/Vitamin D 1 TABLET Tablet PO ×2 (08:03→18:09)
[2024-01-24] MEDS: Fluticasone/Salmeterol 232-14 Inhaler 1 PUFF INHALATION ×2 (08:03→19:53)
[2024-01-24] MEDS: Iron Polysaccharide Complex 150 MG CAPSULE PO ×2 (08:03→19:52)
[2024-01-24] MEDS: Losartan Potassium 100 MG Tablet PO (08:04)
[2024-01-24] MEDS: Umeclidinium Bromide Inhaler 1 PUFF INHALATION (08:04)
[2024-01-24] MEDS: Primidone 50 MG Tablet PO (08:04)
[2024-01-24] MEDS: Propranolol LA 80 MG Capsule PO ×2 (08:04→19:53)
[2024-01-24] MEDS: Loratadine 10 MG Tablet PO (08:04)
[2024-01-24] MEDS: Ascorbic Acid 500 MG Tablet PO ×2 (08:05→18:10)
[2024-01-24] MEDS: Venlafaxine XR 150 MG Capsule PO (08:05)
[2024-01-24] MEDS: Potassium Chloride Oral Tablet 20 MEQ PO (08:05)
[2024-01-24] MEDS: Montelukast 10 MG Tablet PO (08:06)
[2024-01-24] MEDS: Furosemide 40 MG Tablet PO (08:06)
[2024-01-24] MEDS: Senna/Docusate Sodium 1 Tablet PO (08:06)
[2024-01-24 09:55] VITALS: TEMP 36.4
--- NOTE | 2024-01-24 12:21 | CASEMGMT ---
Social Work BIMS (05/03) and PHQ-2 () completed for MDS assessment. Tricia Price MSW OUTSIDE UPHOLSTERER
[2024-01-24 13:02] VITALS: BP 142/62; PULSE 75
[2024-01-24] MEDS: Atorvastatin Calcium 20 MG Tablet PO (19:52)
[2024-01-24] MEDS: Donepezil HCl 10 MG Tablet PO (19:52)
[2024-01-24] MEDS: MELATONIN 10 MG TABLET PO (19:53)
[2024-01-24] MEDS: Oxybutynin 5 MG Tablet 10 MG PO (19:54)
[2024-01-25] MEDS: Acetaminophen 500 MG Tablet 1000 MG PO ×3 (05:19→20:31)
[2024-01-25] MEDS: Sucralfate 1 GM Tablet PO ×2 (05:19→16:22)
[2024-01-25] MEDS: cloNIDine HCl 0.1 MG Tablet 0.100000000000000006 MG PO ×3 (05:19→20:30)
[2024-01-25 06:09] LABS: Absolute Lymphocyte Count 1.73 X10^3/uL (0.83-4.51); Absolute Neutrophil Count 7.2 X10^3/uL (2.0-7.7); Basophil# 0.11 X10^3/uL; Basophil% 1.1 % (0-1); Eosinophil# 0.54 X10^3/uL; Eosinophils% 5.2 % (0-5); Hematocrit 29.5 % (37-47); Lymphocyte # 1.73 X10^3/ul (0.83-4.51); Lymphocyte % 16.5 % (19-41); Mean Corp Hgb Conc 30.5 g/dL (32-36); Mean Corpuscular Hgb 28.6 pg (27.0-32.0); Mean Corpuscular Volume 93.7 fL (81-99); Mean Platelet Vol. 8.7 fl (6.2-12.0); Monocyte% 7.6 % (0-10); NRBC Flagged by Analyzer 0 % (0-5); Neutrophil # 7.19 X10^3/uL (2.7-7.7); Neutrophil % 68.6 % (47-70); Platelet Count 419 K/mm3 (150-450); RBC Distribution Width CV 14.8 % (11.6-14.6); RBC Distribution Width SD 50.3 fl (35.1-43.9); Red Blood Count 3.15 M/mm3 (4.2-5.4); White Blood Count 10.5 K/mm3 (4.4-11.0)
[2024-01-25 06:51] LABS: Anion Gap 4 (5-15); BUN 12 mg/dL (7-18); BUN/Creat Ratio 21.5 RATIO (10-20); Chloride 107 mmol/L (98-107); Creatinine, Serum 0.56 mg/dL (0.55-1.02); EST Glomerular Filtration Rate 111 mL/min (>60); Est Glom Filt Rate - Afr Amer 134 mL/min (>60); Estimated Creatinine Clearance 51.97 ml/min; Glucose 90 mg/dL (74-106); Potassium 3.8 mmol/L (3.5-5.1); Sodium Level 141 mmol/L (136-145)
--- NOTE | 2024-01-25 08:21 | NURSING ---
Camera Supervisor Note; MDS for 01/24/2024 Complete
[2024-01-25] MEDS: Potassium Chloride Oral Tablet 20 MEQ PO (09:36)
[2024-01-25] MEDS: Calcium Carb/Vitamin D 1 TABLET Tablet PO ×2 (09:36→17:42)
[2024-01-25] MEDS: Loratadine 10 MG Tablet PO (09:37)
[2024-01-25] MEDS: Ascorbic Acid 500 MG Tablet PO ×2 (09:37→17:42)
[2024-01-25] MEDS: Propranolol LA 80 MG Capsule PO ×2 (09:38→20:30)
[2024-01-25] MEDS: Furosemide 40 MG Tablet PO (09:38)
[2024-01-25] MEDS: Venlafaxine XR 150 MG Capsule PO (09:38)
[2024-01-25] MEDS: Iron Polysaccharide Complex 150 MG CAPSULE PO ×2 (09:38→20:32)
[2024-01-25] MEDS: Losartan Potassium 100 MG Tablet PO (09:38)
[2024-01-25] MEDS: Senna/Docusate Sodium 1 Tablet PO (09:39)
[2024-01-25] MEDS: Fluticasone/Salmeterol 232-14 Inhaler 1 PUFF INHALATION ×2 (09:39→20:30)
[2024-01-25] MEDS: Pantoprazole Sodium 40 MG Tablet PO ×2 (09:39→20:31)
[2024-01-25] MEDS: Primidone 50 MG Tablet PO (09:39)
[2024-01-25] MEDS: Montelukast 10 MG Tablet PO (09:39)
[2024-01-25] MEDS: Umeclidinium Bromide Inhaler 1 PUFF INHALATION (09:40)
[2024-01-25 09:49] VITALS: BP 103/64; PULSE 77
[2024-01-25] MEDS: Tuberculin,Purif.prot.deriv. 50 TU/ML Vial 0.100000000000000006 ML ID (10:49)
--- NOTE | 2024-01-25 13:37 | NURSING ---
DAUGHTER DIXON CALLED AND ASKED IF STOOL SOFTER WAS DECREASED TO ONCE A DAY. THIS NURSE STATED YES AND DAUGHTER ASKED IF IT WAS GIVEN TODAY,THIS NURSE STATED YES BUT ASKED PT FIRST. DAUGHTER CONCERNED OF PT HAVING BLOW OUTS AND THAT THE PT DOES NOT UNDER STAND IF ASKED AND ASKED IF THE STOOL SOFTENER COULD BE HELD A FEW DAYS. THIS NURSE STATED YES. DAUGHTER THANKED THIS NURSE. ON FLOOR AND AWARE. NEW ORDER FOR STOOL SOFTENER TO BE PRN. WILL CALL DAUGHTER TO UPDATE.
[2024-01-25 14:47] VITALS: BP 106/61; PULSE 76; RESP 16; TEMP 36.3; O2SAT 98
[2024-01-25] MEDS: Donepezil HCl 10 MG Tablet PO (20:30)
[2024-01-25] MEDS: MELATONIN 10 MG TABLET PO (20:31)
[2024-01-25] MEDS: Atorvastatin Calcium 20 MG Tablet PO (20:31)
[2024-01-25] MEDS: Oxybutynin 5 MG Tablet 10 MG PO (20:33)
[2024-01-25 21:54] VITALS: BP 176/81; PULSE 74
[2024-01-26] MEDS: cloNIDine HCl 0.1 MG Tablet 0.100000000000000006 MG PO ×3 (06:16→20:59)
[2024-01-26] MEDS: Acetaminophen 500 MG Tablet 1000 MG PO ×3 (06:16→20:58)
[2024-01-26] MEDS: Sucralfate 1 GM Tablet PO ×2 (06:18→17:18)
[2024-01-26 06:47] VITALS: BP 160/83
[2024-01-26] MEDS: Calcium Carb/Vitamin D 1 TABLET Tablet PO ×2 (07:54→18:22)
[2024-01-26] MEDS: Potassium Chloride Oral Tablet 20 MEQ PO (07:54)
[2024-01-26] MEDS: Ascorbic Acid 500 MG Tablet PO ×2 (07:54→18:22)
[2024-01-26] MEDS: Loratadine 10 MG Tablet PO (07:55)
[2024-01-26] MEDS: Losartan Potassium 100 MG Tablet PO (07:55)
[2024-01-26] MEDS: Venlafaxine XR 150 MG Capsule PO (07:57)
[2024-01-26] MEDS: Propranolol LA 80 MG Capsule PO ×2 (07:57→20:58)
[2024-01-26] MEDS: Iron Polysaccharide Complex 150 MG CAPSULE PO ×2 (07:57→20:59)
[2024-01-26] MEDS: Furosemide 40 MG Tablet PO (07:58)
[2024-01-26] MEDS: Primidone 50 MG Tablet PO (07:58)
[2024-01-26] MEDS: Montelukast 10 MG Tablet PO (07:58)
[2024-01-26] MEDS: Pantoprazole Sodium 40 MG Tablet PO ×2 (07:58→20:58)
[2024-01-26] MEDS: Umeclidinium Bromide Inhaler 1 PUFF INHALATION (08:00)
[2024-01-26] MEDS: Fluticasone/Salmeterol 232-14 Inhaler 1 PUFF INHALATION ×2 (08:01→20:58)
[2024-01-26 13:49] VITALS: BP 153/68; PULSE 71; RESP 23; TEMP 37.1; O2SAT 92
[2024-01-26] MEDS: MELATONIN 10 MG TABLET PO (20:58)
[2024-01-26] MEDS: Oxybutynin 5 MG Tablet 10 MG PO (20:58)
[2024-01-26] MEDS: Atorvastatin Calcium 20 MG Tablet PO (20:58)
[2024-01-26] MEDS: Donepezil HCl 10 MG Tablet PO (20:59)
[2024-01-27] MEDS: Alendronate Sodium 70 MG Tablet PO (06:10)
[2024-01-27] MEDS: Sucralfate 1 GM Tablet PO ×2 (06:10→16:58)
[2024-01-27] MEDS: cloNIDine HCl 0.1 MG Tablet 0.100000000000000006 MG PO ×3 (06:10→21:52)
[2024-01-27] MEDS: Acetaminophen 500 MG Tablet 1000 MG PO ×3 (06:10→21:52)
[2024-01-27 06:16] VITALS: BP 158/70; PULSE 64
[2024-01-27 09:42] VITALS: BP 142/74; PULSE 64; RESP 17; TEMP 36.8; O2SAT 95
[2024-01-27] MEDS: Potassium Chloride Oral Tablet 20 MEQ PO (09:45)
[2024-01-27] MEDS: Loratadine 10 MG Tablet PO (09:46)
[2024-01-27] MEDS: Losartan Potassium 100 MG Tablet PO (09:46)
[2024-01-27] MEDS: Calcium Carb/Vitamin D 1 TABLET Tablet PO ×2 (09:46→16:58)
[2024-01-27] MEDS: Ascorbic Acid 500 MG Tablet PO ×2 (09:46→16:58)
[2024-01-27] MEDS: Umeclidinium Bromide Inhaler 1 PUFF INHALATION (09:47)
[2024-01-27] MEDS: Furosemide 40 MG Tablet PO (09:47)
[2024-01-27] MEDS: Fluticasone/Salmeterol 232-14 Inhaler 1 PUFF INHALATION ×2 (09:47→21:57)
[2024-01-27] MEDS: Iron Polysaccharide Complex 150 MG CAPSULE PO ×2 (09:47→21:53)
[2024-01-27] MEDS: Propranolol LA 80 MG Capsule PO ×2 (09:47→21:53)
[2024-01-27] MEDS: Venlafaxine XR 150 MG Capsule PO (09:47)
[2024-01-27] MEDS: Montelukast 10 MG Tablet PO (09:48)
[2024-01-27] MEDS: Pantoprazole Sodium 40 MG Tablet PO ×2 (09:48→21:53)
[2024-01-27] MEDS: Primidone 50 MG Tablet PO (09:48)
[2024-01-27 14:25] VITALS: BP 160/73; PULSE 69
[2024-01-27] MEDS: Donepezil HCl 10 MG Tablet PO (21:52)
[2024-01-27] MEDS: Oxybutynin 5 MG Tablet 10 MG PO (21:53)
[2024-01-27] MEDS: MELATONIN 10 MG TABLET PO (21:53)
[2024-01-27] MEDS: Atorvastatin Calcium 20 MG Tablet PO (21:53)
--- NOTE | 2024-01-27 23:17 | NURSING ---
Patient noted to have a red rash-like area on her back, which she states is itchy. New order received from PCP for Hydrocortisone cream.
[2024-01-28] MEDS: Acetaminophen 500 MG Tablet 1000 MG PO ×3 (06:51→21:27)
[2024-01-28] MEDS: cloNIDine HCl 0.1 MG Tablet 0.100000000000000006 MG PO ×3 (06:51→21:27)
[2024-01-28] MEDS: Sucralfate 1 GM Tablet PO ×2 (06:51→16:13)
[2024-01-28 06:56] VITALS: PULSE 66; RESP 16
[2024-01-28] MEDS: Fluticasone/Salmeterol 232-14 Inhaler 1 PUFF INHALATION ×2 (08:00→21:28)
[2024-01-28] MEDS: Umeclidinium Bromide Inhaler 1 PUFF INHALATION (08:00)
[2024-01-28] MEDS: Potassium Chloride Oral Tablet 20 MEQ PO (08:02)
[2024-01-28] MEDS: Calcium Carb/Vitamin D 1 TABLET Tablet PO ×2 (08:03→17:35)
[2024-01-28] MEDS: Ascorbic Acid 500 MG Tablet PO ×2 (08:03→17:35)
[2024-01-28] MEDS: Losartan Potassium 100 MG Tablet PO (08:04)
[2024-01-28] MEDS: Venlafaxine XR 150 MG Capsule PO (08:04)
[2024-01-28] MEDS: Loratadine 10 MG Tablet PO (08:04)
[2024-01-28] MEDS: Iron Polysaccharide Complex 150 MG CAPSULE PO ×2 (08:04→21:27)
[2024-01-28] MEDS: Furosemide 40 MG Tablet PO (08:05)
[2024-01-28] MEDS: Pantoprazole Sodium 40 MG Tablet PO ×2 (08:05→21:27)
[2024-01-28] MEDS: Propranolol LA 80 MG Capsule PO ×2 (08:05→21:26)
[2024-01-28] MEDS: Primidone 50 MG Tablet PO (08:05)
[2024-01-28] MEDS: Montelukast 10 MG Tablet PO (08:05)
[2024-01-28 08:12] VITALS: BP 138/57; PULSE 70
[2024-01-28 12:13] VITALS: BP 132/66; PULSE 69; RESP 16; TEMP 36; O2SAT 96
--- NOTE | 2024-01-28 12:29 | CASEMGMT ---
Addendum entered by Tricia Price 01/28/24 20:17: [facility] pt. Received call from other dtr, Rachel, to inquire about accepted facilities and reasons for OON. SW answered questions. SW updated on acceptance by [facility]. SW encouraged dtr to narrow down facility choices. Dtr canceled [facility] and requested referral to [facility]. Referral placed to [facility] via [facility] and notify the other two facilities. Will continue to follow. Original Note: Social Work 01/25/24: Family selected several more SNFs for referrals. SW placed referrals via [employer], and provided dtr, Monica, with updates via ongoing email correspondence. [facility] - [facility] accept [facility] ([facility]) - OON with insurance [facility] ([facility]) - OON with insurance [facility] - can accept [facility] - can accept [facility] - can accept [facility] - no response yet [facility] - no response yet Dtr requested referral to [facility]. Referral placed via [facility]. SW will continue to follow. Tricia Price, DONTE MARRW
--- NOTE | 2024-01-28 18:08 | NURSING ---
PT FAMILY REQUESTING PT IRON TO BE CHECKED. NEW ORDER FROM DR. ANAND TO CHECK IN MORNING. ACIDOPHILUS STARTED TODAY DUE TO PT HAVING A LOT OF DIARRHEA. ALSO OK PER DIETARY TO CHANGE ENSURE TO ENSURE CLEAR. FAMILY UPDATED.
[2024-01-28] MEDS: MELATONIN 10 MG TABLET PO (21:26)
[2024-01-28] MEDS: Oxybutynin 5 MG Tablet 10 MG PO (21:27)
[2024-01-28] MEDS: Atorvastatin Calcium 20 MG Tablet PO (21:27)
[2024-01-28] MEDS: Donepezil HCl 10 MG Tablet PO (21:28)
[2024-01-29] MEDS: Sucralfate 1 GM Tablet PO ×2 (06:15→16:56)
[2024-01-29] MEDS: Acetaminophen 500 MG Tablet 1000 MG PO ×3 (06:15→20:28)
[2024-01-29] MEDS: cloNIDine HCl 0.1 MG Tablet 0.100000000000000006 MG PO ×3 (06:16→20:30)
[2024-01-29 06:23] VITALS: BP 167/75; PULSE 65; RESP 16; O2SAT 97
[2024-01-29 06:38] LABS: Iron 44 ug/dL (50-170)
[2024-01-29 06:44] VITALS: RESP 14; O2SAT 97
[2024-01-29] MEDS: Montelukast 10 MG Tablet PO (08:05)
[2024-01-29] MEDS: Losartan Potassium 100 MG Tablet PO (08:05)
[2024-01-29] MEDS: Calcium Carb/Vitamin D 1 TABLET Tablet PO ×2 (08:05→16:56)
[2024-01-29] MEDS: Pantoprazole Sodium 40 MG Tablet PO ×2 (08:05→20:30)
[2024-01-29] MEDS: Loratadine 10 MG Tablet PO (08:06)
[2024-01-29] MEDS: Potassium Chloride Oral Tablet 20 MEQ PO (08:06)
[2024-01-29] MEDS: Ascorbic Acid 500 MG Tablet PO ×2 (08:06→16:56)
[2024-01-29] MEDS: Iron Polysaccharide Complex 150 MG CAPSULE PO ×2 (08:06→20:29)
[2024-01-29] MEDS: Venlafaxine XR 150 MG Capsule PO (08:06)
[2024-01-29] MEDS: Umeclidinium Bromide Inhaler 1 PUFF INHALATION (08:07)
[2024-01-29] MEDS: Propranolol LA 80 MG Capsule PO ×2 (08:07→20:30)
[2024-01-29] MEDS: Primidone 50 MG Tablet PO (08:07)
[2024-01-29] MEDS: Fluticasone/Salmeterol 232-14 Inhaler 1 PUFF INHALATION ×2 (08:07→20:28)
[2024-01-29] MEDS: Furosemide 40 MG Tablet PO (08:07)
[2024-01-29] MEDS: Sodium Ferric Gluconat/Sucrose 250 MG in 0.9% Normal Saline (250mL Bag) 250 ML 135 MG IV (08:59)
--- NOTE | 2024-01-29 09:11 | MDS.RN ---
Information for the mds was obtained from review of the clinical record, interview of resident, staff, and direct observation of resident's care.
[2024-01-29 09:47] VITALS: BP 138/61; PULSE 72; RESP 24; TEMP 36.6; O2SAT 95
[2024-01-29 09:58] VITALS: BMI 24.3
--- NOTE | 2024-01-29 16:03 | CASEMGMT ---
Social Work Insurance issued LCD 01/31, DC 02/01. SW updated dtr, Monica, via email and phoned dtr, Rachel. HIRA spoke with Rachel and explained appeal rights. Noted family will need to DC on a SNF by end of day tomorrow. Dtr stated she is going to tour more places and will notify this worker of choices and if appeal is elected. HIRA updated dtr that [facility] also accepted. HIRA will continue to follow. Plan: DC 02/01 to SNF, intermediate, part B therapies Tricia Price, DONTE MARRW
--- NOTE | 2024-01-29 17:39 | DS.PCM_ITS ---
Providers Date of Admission: 01/17/24 Primary Care Physician: Dr. Darcy Clifton MD Reason For Visit: MOUSTAPHA/ PUBIC FRACTURE Diagnosis Discharge Diagnosis (1) Debility: Status: Acute Code(s): R53.81 - Other malaise (2) Pelvis fracture, right: Status: Acute Code(s): S32.9XXA - Fracture of unspecified parts of lumbosacral spine and pelvis, initial encounter for closed fracture (3) Gastric ulcer: Status: Acute Code(s): K25.9 - Gastric ulcer, unspecified as acute or chronic, without hemorrhage or p erforation (4) Acute blood loss anemia: Status: Acute Code(s): D62 - Acute posthemorrhagic anemia (5) Upper GI bleed: Status: Acute Code(s): K92.2 - Gastrointestinal hemorrhage, unspecified (6) HTN (hypertension): Status: Chronic Code(s): I10 - Essential (primary) hypertension (7) Hyperlipemia: Status: Acute Code(s): E78.5 - Hyperlipidemia, unspecified (8) COPD (chronic obstructive pulmonary disease): Status: Inactive Code(s): J44.9 - Chronic obstructive pulmonary disease, unspecified (9) Depression: Status: Acute Code(s): F32.A - Depression, unspecified (10) Osteoarthritis: Status: Acute Code(s): M19.90 - Unspecified osteoarthritis, unspecified site (11) Osteoporosis: Status: Acute Code(s): M81.0 - Age-related osteoporosis without current pathological fracture (12) Alzheimer disease: Status: Acute Code(s): G30.9 - Alzheimer's disease, unspecified; F02.80 - Dementia in other diseases classified elsewhere, unspecified severity, without behavioral disturbance, psychotic disturbance, mood disturbance, and anxiety (13) Allergic rhinitis: Status: Acute Code(s): J30.9 - Allergic rhinitis, unspecified (14) Overactive bladder: Status: Acute Code(s): N32.81 - Overactive bladder (15) Hypokalemia: Status: Acute Code(s): E87.6 - Hypokalemia (16) Tremor: Status: Acute Code(s): R25.1 - Tremor, unspecified Plan 83 year old female with below past medical history hospitalized for right pelvic fracture, upper gi bleed 2/2 gastric ulcer, complicated by confusion, thrombocytopenia, admitted to TCU with debility, here for rehabilitation, strengthening, prior to discharge home to [facility]. * Debility - PT/OT. * Cognition - ST. * Pain - Tylenol 1000mg q6 prn pain (1-10). * Bowel - senna/colace 1 tablet bid, Magnesium citrate 300ml daily prn. * Adult immunization - Administer pneumonia vaccine, covid vaccine, flu vaccine as appropriate. * DVT prophylaxis - Hold, gi bleed. * Osteoporosis - Alendronate 70mg qweek. * Hyperlipidemia - Atorvastatin 20mg qhs. * Calcium deficiency - Calcium D bid. * Hypertension - Losartan 100mg daily, Clonidine 0.1mg tid. * Alzheimer Disease - Donepezil 10mg qhs. * Iron deficiency anemia - Ferrex 150mg bid, Vitamin C 500mg bid. * COPD - Fluticasone/salmeterol 232-14 1 puff q12, Incruse 1 puff daily. * Edema - Furosemide 40mg daily. * Allergic Rhinitis - Loratadine 10mg daily, Singulair 10mg daily. * Overactive bladder - Oxybutynin 10mg qhs. * Gastric ulcer - Pantoprazole 40mg bid, Sucralfate 1gm bid. * Hypokalemia - KCL 20meq daily. * Tremor - Primidone 50mg daily, Propranolol 80mg bid. * Depression - Venlafaxine XR 150mg daily, stable chronic terminal carman use, GDR not recommended. Medications at Discharge Home Medications alendronate 70 mg tablet 70 mg PO QWEEK supplement 01/12/24 atorvastatin 20 mg tablet 20 mg PO QHS hld 01/12/24 calcium carbonate 500 mg-vitamin D3 15 mcg (600 unit) tablet 1 tab PO BID calcuim 01/12/24 donepezil 10 mg tablet 10 mg PO QHS dementia 01/12/24 fluticasone fur. 100 mcg-umeclid 62.5 mcg-vilant 25 mcg inhalat.powder (Trelegy Ellipta) 1 inh inhalation DAILY COPD 01/12/24 loratadine 10 mg tablet (Loradamed) 10 mg PO DAILY congestion 01/12/24 montelukast 10 mg tablet 10 mg PO DAILY asthma 01/12/24 potassium chloride 20 mEq tablet,extended release 20 meq PO DAILY supplement 01/12/24 primidone 50 mg tablet 50 mg PO DAILY tremors 01/12/24 propranolol 80 mg capsule,24 hr,extended release 80 mg PO BID htn 01/12/24 torsemide 20 mg tablet 20 mg PO DAILY edema 01/12/24 venlafaxine 150 mg capsule,extended release 24 hr 150 mg PO DAILY depression 01/12/24 pantoprazole 40 mg tablet,delayed release 40 mg PO BID reflux #60 tabs 01/17/24 sucralfate 1 gram tablet 1 g PO 1HR_ACHS prevent ulcers #90 tabs 01/17/24 acetaminophen 500 mg tablet 1,000 mg (2 x 500 mg) PO Q8 #0 tabs 01/29/24 acidophilus 25 million cell-pectin, citrus 100 mg tablet 1 tab PO BID #0 tabs 01/29/24 ascorbic acid (vitamin C) 500 mg tablet 500 mg PO BIDCM #0 tabs 01/29/24 clonidine HCl 0.1 mg tablet 0.1 mg PO TID #0 tabs 01/29/24 losartan 100 mg tablet 100 mg PO DAILY #0 tabs 01/29/24 melatonin 10 mg sublingual tablet 10 mg PO QHS #0 tabs 01/29/24 oxybutynin chloride 5 mg tablet 10 mg (2 x 5 mg) PO QHS #0 tabs 01/29/24 polysaccharide iron complex 150 mg iron capsule (Ferrex) 150 mg PO BID #0 caps 01/29/24 Hospital Course Operations None Procedures None Summary of Care Provided Minutes Spent on Discharge: 35 Hospital Course: 83 year old female with below past medical history hospitalized for right pelvic fracture, upper gi bleed 2/2 gastric ulcer, complicated by confusion, thrombocytopenia, admitted to TCU with debility, here for rehabilitation, strengthening, prior to discharge home to [facility]. Discharge 02/02/2024 to SNF, intermediate, part B therapies. Resident has Alzheimer Disease, on treatment with Donepezil 10mg daily. Physical Exam Const alert General Appearance: cooperative HEENT normocephalic Eyes PERRL and EOMs intact bilaterally Neck supple, no JVD and no carotid bruits Resp normal respiratory effort, normal air movement and clear to auscultation bilaterally Cardio regular rate and regular rhythm GI normal to inspection, nondistended, normoactive bowel sounds, non-tender and n on-distended Extremity normal capillary refill General Extremity: Negative for edema Skin no rashes or lesions noted General Skin Exam: no breakdown Psych affect normal Appearance: appropriate Weight / BMI Weight Weight: 64.319 kg Body Mass Index (BMI) 24.3 ABG / Lab / Microbiology Data 01/25/24 05:14 01/25/24 05:14 Laboratory: Laboratory Results - last 24 hr 01/29/24 05:25: Iron 44 L D/C Instructions Discharge Diet: No restrictions Discharge Activity: Return to Normal Activity, May Shower and Use Walker Weight Bearing Status: Weight bearing as tolerated Call your doctor if you observe: Fever of 101 or Higher, Inability to urinate, Inability to have a bowel movement, Shortness of breath, Dizziness, Fainting spells, Swelling in the ankles, Chest pain and Uncontrolled pain Additional Instructions: Discharge 02/02/2024 to SNF, intermediate, part B therapies. Resident has Alzheimer Disease, on treatment with Donepezil 10mg daily. Please Follow Up With: Jonathan Bell, When: As scheduled. Meaningful Use Info Meaningful Use Diagnoses (Choose all that apply): None applicable Discharge Plan Admission Admit Date/Time: 01/17/24 14:15 Primary Reason for Your Visit: Debility. Attending Provider: Curtis Ye Chi Primary Care Provider: Darcy Clifton Instructions Additional Instructions / Restrictions: Discharge 02/02/2024 to SNF, intermediate, part B therapies. Resident has Alzheimer Disease, on treatment with Donepezil 10mg daily. Discharge Orders/Prescriptions Prescriptions: New clonidine HCl 0.1 mg Tablet 0.1 mg PO TID Qty: 0 0RF polysaccharide iron complex [Ferrex 150] 150 mg iron Capsule 150 mg PO BID Qty: 0 0RF acetaminophen 500 mg Tablet 1,000 mg PO Q8 Qty: 0 0RF ascorbic acid (vitamin C) 500 mg Tablet 500 mg PO BIDCM Qty: 0 0RF oxybutynin chloride 5 mg Tablet 10 mg PO QHS Qty: 0 0RF losartan 100 mg Tablet 100 mg PO DAILY Qty: 0 0RF acidophilus-pectin, citrus 25 million cell -100 mg Tablet 1 tab PO BID Qty: 0 0RF melatonin 10 mg Tablet, Sublingual 10 mg PO QHS Qty: 0 0RF Continued atorvastatin 20 mg tablet 20 mg PO QHS Patient Comments: TAKE 1 TABLET BY MOUTH ONCE DAILY donepezil 10 mg tablet 10 mg PO QHS Patient Comments: TAKE 1 TABLET BY MOUTH NIGHTLY calcium carbonate-vitamin D3 500 mg-15 mcg (600 unit) tablet 1 tab PO BID Patient Comments: TAKE 1 TABLET BY MOUTH TWICE DAILY alendronate 70 mg tablet 70 mg PO QWEEK Patient Comments: TAKE 1 TABLET NEEDED EVERY SUN {Q1W1} venlafaxine 150 mg capsule,extended release 24hr 150 mg PO DAILY Patient Comments: TAKE 1 CAPSULE BY MOUTH EVERY DAY propranolol 80 mg capsule,extended release 24 hr 80 mg PO BID Patient Comments: TAKE 1 CAPSULE BY MOUTH TWICE DAILY HOLD FOR SBP <120 montelukast 10 mg tablet 10 mg PO DAILY Patient Comments: TAKE 1 TABLET BY MOUTH EVERY DAY potassium chloride 20 mEq tablet extended release 20 meq PO DAILY Patient Comments: TAKE 1 TABLET BY MOUTH ONCE DAILY WITH FOOD torsemide 20 mg tablet 20 mg PO DAILY primidone 50 mg tablet 50 mg PO DAILY Trelegy Ellipta 100-62.5-25 mcg blister with device 1 inh inhalation DAILY loratadine [Loradamed] 10 mg tablet 10 mg PO DAILY sucralfate 1 gram Tablet 1 g PO 1HR_ACHS Qty: 90 1RF pantoprazole 40 mg tablet,delayed release (DR/EC) 40 mg PO BID Qty: 60 2RF Discontinued aspirin 81 mg tablet,chewable 1 tab PO DAILY Hold Instructions: Resume on 01/24/24. Please hold aspirin for the next seven days due to GI bleed Patient Comments: CHEW AND SWALLOW 1 TABLET BY MOUTH ONCE DAILY clonidine HCl 0.1 mg tablet 0.1 mg PO BID oxybutynin chloride 10 mg tablet extended release 24hr 10 mg PO QHS Patient Comments: TAKE 1 TABLET BY MOUTH EVERY DAY lisinopril 40 mg tablet 40 mg PO DAILY Patient Comments: TAKE 1 TABLET BY MOUTH ONCE DAILY fluticasone furoate-vilanterol [Breo Ellipta] 100-25 mcg/dose blister with device 1 inh INHALATION Q24H Patient Comments: INHALE ONE (1) PUFF BY MOUTH ONCE DAILY alendronate [Fosamax] 70 mg tablet 70 mg PO QWEEK Patient Comments: q sunday ferrous sulfate 325 mg (65 mg iron) tablet 325 mg PO BID Qty: 60 2RF Referrals / Follow Up: Darcy Clifton MD [Primary Care Provider] - FriendJonathan DO [Med Staff - Active Staff] - Disposition Disposition (needs filled in before D/C Order can be placed): NonSkilled NH/Intermed Care
--- NOTE | 2024-01-29 17:45 | TREXTCAR_ITS ---
Diet Diet Order/Speech Therapy: 01/17/24 14:42 Diet: Regular - General Food consistency:: Regular Liquid Consistency:: Regular/Thin Type of Dietary Supplement:: Ensure Clear w/ B&D Diet Comments: ICE CREAM w/ lunch, no eggs/downing/sausage @B, no fancy lettuce Routine Orders/Code Status Code Status: DNRCC-A (No intubation.) Therapies Weight Bearing: Weight bearing as tolerated Extremity Affected:: Bilateral Lower Physical Therapy: Eval and Treat Occupational Therapy: Eval and Treat Speech Therapy: Eval and Treat Problem/Diagnosis (1) Debility: Status: Acute Code(s): R53.81 - Other malaise (2) Pelvis fracture, right: Status: Acute Code(s): S32.9XXA - Fracture of unspecified parts of lumbosacral spine and pelvis, initial encounter for closed fracture (3) Gastric ulcer: Status: Acute Code(s): K25.9 - Gastric ulcer, unspecified as acute or chronic, without hemorrhage or perforation (4) Acute blood loss anemia: Status: Acute Code(s): D62 - Acute posthemorrhagic anemia (5) Upper GI bleed: Status: Acute Code(s): K92.2 - Gastrointestinal hemorrhage, unspecified (6) HTN (hypertension): Status: Chronic Code(s): I10 - Essential (primary) hypertension (7) Hyperlipemia: Status: Acute Code(s): E78.5 - Hyperlipidemia, unspecified (8) COPD (chronic obstructive pulmonary disease): Status: Inactive Code(s): J44.9 - Chronic obstructive pulmonary disease, unspecified (9) Depression: Status: Acute Code(s): F32.A - Depression, unspecified (10) Osteoarthritis: Status: Acute Code(s): M19.90 - Unspecified osteoarthritis, unspecified site (11) Osteoporosis: Status: Acute Code(s): M81.0 - Age-related osteoporosis without current pathological fracture (12) Alzheimer disease: Status: Acute Code(s): G30.9 - Alzheimer's disease, unspecified; F02.80 - Dementia in other diseases classified elsewhere, unspecified severity, without behavioral disturbance, psychotic disturbance, mood disturbance, and anxiety (13) Allergic rhinitis: Status: Acute Code(s): J30.9 - Allergic rhinitis, unspecified (14) Overactive bladder: Status: Acute Code(s): N32.81 - Overactive bladder (15) Hypokalemia: Status: Acute Code(s): E87.6 - Hypokalemia (16) Tremor: Status: Acute Code(s): R25.1 - Tremor, unspecified Plan 83 year old female with below past medical history hospitalized for right pelvic fracture, upper gi bleed 2/2 gastric ulcer, complicated by confusion, thrombocytopenia, admitted to TCU with debility, here for rehabilitation, strengthening, prior to discharge home to [facility]. * Debility - PT/OT. * Cognition - ST. * Pain - Tylenol 1000mg q6 prn pain (1-10). * Bowel - senna/colace 1 tablet bid, Magnesium citrate 300ml daily prn. * Adult immunization - Administer pneumonia vaccine, covid vaccine, flu vaccine as appropriate. * DVT prophylaxis - Hold, gi bleed. * Osteoporosis - Alendronate 70mg qweek. * Hyperlipidemia - Atorvastatin 20mg qhs. * Calcium deficiency - Calcium D bid. * Hypertension - Losartan 100mg daily, Clonidine 0.1mg tid. * Alzheimer Disease - Donepezil 10mg qhs. * Iron deficiency anemia - Ferrex 150mg bid, Vitamin C 500mg bid. * COPD - Fluticasone/salmeterol 232-14 1 puff q12, Incruse 1 puff daily. * Edema - Furosemide 40mg daily. * Allergic Rhinitis - Loratadine 10mg daily, Singulair 10mg daily. * Overactive bladder - Oxybutynin 10mg qhs. * Gastric ulcer - Pantoprazole 40mg bid, Sucralfate 1gm bid. * Hypokalemia - KCL 20meq daily. * Tremor - Primidone 50mg daily, Propranolol 80mg bid. * Depression - Venlafaxine XR 150mg daily, stable chronic detention use, GDR not recommended. Allergies/Procedures Done in Hospital Allergies Penicillins Allergy (Unknown, Verified 01/12/24 12:15) NEEDS FOLLOW-UP Procedures: None Type of Care/Length of Stay Estimated LOS: More Than 30 Days Type of Care Needed: Intermediate Rehab Potential: Fair Prognosis: Fair Additional Orders/Day of Discharge Day of Discharge: 02/02/24 Dietary and Speech Recommendations Dietitian Recommendations/Changes: Will continue liberalized regular diet to encourage improved PO at meals. Will change ensure compact to ensure clear BID w/ breakfast and dinner per nsg request at meals and ice cream w/ lunch as tolerated. Adjust ONS as needed to optimize PO and prevent weight loss. Follow Up Care Please Follow Up With: Jonathan Bell DO When: 2 weeks Discharge Plan Admission Admit Date/Time: 01/17/24 14:15 Primary Reason for Your Visit: Debility. Attending Provider: Curtis Ye Chi Primary Care Provider: Darcy Clifton Instructions Additional Instructions / Restrictions: Discharge 02/02/2024 to SNF, intermediate, part B therapies. Resident has Alzheimer Disease, on treatment with Donepezil 10mg daily. Discharge Orders/Prescriptions Prescriptions: New clonidine HCl 0.1 mg Tablet 0.1 mg PO TID Qty: 0 0RF polysaccharide iron complex [Ferrex 150] 150 mg iron Capsule 150 mg PO BID Qty: 0 0RF acetaminophen 500 mg Tablet 1,000 mg PO Q8 Qty: 0 0RF ascorbic acid (vitamin C) 500 mg Tablet 500 mg PO BIDCM Qty: 0 0RF oxybutynin chloride 5 mg Tablet 10 mg PO QHS Qty: 0 0RF losartan 100 mg Tablet 100 mg PO DAILY Qty: 0 0RF acidophilus-pectin, citrus 25 million cell -100 mg Tablet 1 tab PO BID Qty: 0 0RF melatonin 10 mg Tablet, Sublingual 10 mg PO QHS Qty: 0 0RF Continued atorvastatin 20 mg tablet 20 mg PO QHS Patient Comments: TAKE 1 TABLET BY MOUTH ONCE DAILY donepezil 10 mg tablet 10 mg PO QHS Patient Comments: TAKE 1 TABLET BY MOUTH NIGHTLY calcium carbonate-vitamin D3 500 mg-15 mcg (600 unit) tablet 1 tab PO BID Patient Comments: TAKE 1 TABLET BY MOUTH TWICE DAILY alendronate 70 mg tablet 70 mg PO QWEEK Patient Comments: TAKE 1 TABLET NEEDED EVERY SUN {Q1W1} venlafaxine 150 mg capsule,extended release 24hr 150 mg PO DAILY Patient Comments: TAKE 1 CAPSULE BY MOUTH EVERY DAY propranolol 80 mg capsule,extended release 24 hr 80 mg PO BID Patient Comments: TAKE 1 CAPSULE BY MOUTH TWICE DAILY HOLD FOR SBP <120 montelukast 10 mg tablet 10 mg PO DAILY Patient Comments: TAKE 1 TABLET BY MOUTH EVERY DAY potassium chloride 20 mEq tablet extended release 20 meq PO DAILY Patient Comments: TAKE 1 TABLET BY MOUTH ONCE DAILY WITH FOOD torsemide 20 mg tablet 20 mg PO DAILY primidone 50 mg tablet 50 mg PO DAILY Trelegy Ellipta 100-62.5-25 mcg blister with device 1 inh inhalation DAILY loratadine [Loradamed] 10 mg tablet 10 mg PO DAILY sucralfate 1 gram Tablet 1 g PO 1HR_ACHS Qty: 90 1RF pantoprazole 40 mg tablet,delayed release (DR/EC) 40 mg PO BID Qty: 60 2RF Discontinued aspirin 81 mg tablet,chewable 1 tab PO DAILY Hold Instructions: Resume on 01/24/24. Please hold aspirin for the next seven days due to GI bleed Patient Comments: CHEW AND SWALLOW 1 TABLET BY MOUTH ONCE DAILY clonidine HCl 0.1 mg tablet 0.1 mg PO BID oxybutynin chloride 10 mg tablet extended release 24hr 10 mg PO QHS Patient Comments: TAKE 1 TABLET BY MOUTH EVERY DAY lisinopril 40 mg tablet 40 mg PO DAILY Patient Comments: TAKE 1 TABLET BY MOUTH ONCE DAILY fluticasone furoate-vilanterol [Breo Ellipta] 100-25 mcg/dose blister with device 1 inh INHALATION Q24H Patient Comments: INHALE ONE (1) PUFF BY MOUTH ONCE DAILY alendronate [Fosamax] 70 mg tablet 70 mg PO QWEEK Patient Comments: q sunday ferrous sulfate 325 mg (65 mg iron) tablet 325 mg PO BID Qty: 60 2RF Referrals / Follow Up: Darcy Clifton MD [Primary Care Provider] - Jonathan Bell DO [Med Staff - Active Staff] - Disposition Disposition (needs filled in before D/C Order can be placed): NonSkilled NH/Intermed Care
[2024-01-29] MEDS: Atorvastatin Calcium 20 MG Tablet PO (20:29)
[2024-01-29] MEDS: Oxybutynin 5 MG Tablet 10 MG PO (20:30)
[2024-01-29] MEDS: MELATONIN 10 MG TABLET PO (20:31)
[2024-01-29] MEDS: Donepezil HCl 10 MG Tablet PO (20:31)
[2024-01-30] MEDS: Sucralfate 1 GM Tablet PO ×2 (05:44→16:36)
[2024-01-30] MEDS: Acetaminophen 500 MG Tablet 1000 MG PO ×3 (05:44→20:39)
[2024-01-30] MEDS: cloNIDine HCl 0.1 MG Tablet 0.100000000000000006 MG PO ×3 (05:45→20:39)
[2024-01-30 07:04] LABS: Hematocrit 34.9 % (37-47)
[2024-01-30] MEDS: Potassium Chloride Oral Tablet 20 MEQ PO (08:10)
[2024-01-30] MEDS: Calcium Carb/Vitamin D 1 TABLET Tablet PO ×2 (08:10→17:36)
[2024-01-30] MEDS: Ascorbic Acid 500 MG Tablet PO ×2 (08:11→17:36)
[2024-01-30] MEDS: Venlafaxine XR 150 MG Capsule PO (08:12)
[2024-01-30] MEDS: Losartan Potassium 100 MG Tablet PO (08:12)
[2024-01-30] MEDS: Loratadine 10 MG Tablet PO (08:12)
[2024-01-30] MEDS: Propranolol LA 80 MG Capsule PO ×2 (08:12→20:38)
[2024-01-30] MEDS: Iron Polysaccharide Complex 150 MG CAPSULE PO ×2 (08:12→20:39)
[2024-01-30] MEDS: Fluticasone/Salmeterol 232-14 Inhaler 1 PUFF INHALATION ×2 (08:13→20:38)
[2024-01-30] MEDS: Umeclidinium Bromide Inhaler 1 PUFF INHALATION (08:13)
[2024-01-30] MEDS: Pantoprazole Sodium 40 MG Tablet PO ×2 (08:14→20:38)
[2024-01-30] MEDS: Furosemide 40 MG Tablet PO (08:15)
[2024-01-30] MEDS: Montelukast 10 MG Tablet PO (08:15)
[2024-01-30] MEDS: Primidone 50 MG Tablet PO (08:15)
[2024-01-30 08:22] VITALS: BP 146/73; PULSE 78
[2024-01-30 08:41] VITALS: BP 146/73; PULSE 78; RESP 20; TEMP 36.7; O2SAT 93
[2024-01-30 11:40] VITALS: PULSE 75; RESP 18; O2SAT 94
[2024-01-30] MEDS: Hydrocortisone 2.5% Ointment 20 gm tube 1 APPLIC TOPICAL (11:43)
[2024-01-30] MEDS: Donepezil HCl 10 MG Tablet PO (20:38)
[2024-01-30] MEDS: Atorvastatin Calcium 20 MG Tablet PO (20:38)
[2024-01-30] MEDS: Oxybutynin 5 MG Tablet 10 MG PO (20:38)
[2024-01-30] MEDS: MELATONIN 10 MG TABLET PO (20:38)
[2024-01-31] MEDS: cloNIDine HCl 0.1 MG Tablet 0.100000000000000006 MG PO ×3 (05:28→23:35)
[2024-01-31] MEDS: Sucralfate 1 GM Tablet PO ×2 (05:28→16:12)
[2024-01-31] MEDS: Acetaminophen 500 MG Tablet 1000 MG PO ×3 (05:28→23:36)
[2024-01-31] MEDS: Potassium Chloride Oral Tablet 20 MEQ PO (10:27)
[2024-01-31] MEDS: Ascorbic Acid 500 MG Tablet PO ×2 (10:27→17:10)
[2024-01-31] MEDS: Calcium Carb/Vitamin D 1 TABLET Tablet PO ×2 (10:27→17:10)
[2024-01-31] MEDS: Propranolol LA 80 MG Capsule PO ×2 (10:28→23:36)
[2024-01-31] MEDS: Montelukast 10 MG Tablet PO (10:28)
[2024-01-31] MEDS: Iron Polysaccharide Complex 150 MG CAPSULE PO ×2 (10:28→23:36)
[2024-01-31] MEDS: Furosemide 40 MG Tablet PO (10:28)
[2024-01-31] MEDS: Loratadine 10 MG Tablet PO (10:28)
[2024-01-31] MEDS: Pantoprazole Sodium 40 MG Tablet PO ×2 (10:28→23:36)
[2024-01-31] MEDS: Primidone 50 MG Tablet PO (10:28)
[2024-01-31] MEDS: Losartan Potassium 100 MG Tablet PO (10:28)
[2024-01-31] MEDS: Venlafaxine XR 150 MG Capsule PO (10:28)
[2024-01-31] MEDS: Fluticasone/Salmeterol 232-14 Inhaler 1 PUFF INHALATION ×2 (10:29→23:35)
[2024-01-31] MEDS: Umeclidinium Bromide Inhaler 1 PUFF INHALATION (10:29)
[2024-01-31 10:32] VITALS: BP 126/75; PULSE 72; RESP 16; O2SAT 94
[2024-01-31] MEDS: 0.9% Saline Lock 10 ML Syringe IV ×2 (10:33→13:11)
--- NOTE | 2024-01-31 10:44 | CASEMGMT ---
Addendum entered by Tricia Price 02/01/24 16:41: precert approved for patient at [facility]. Original Note: Social Work This worker has had several phone and email conversations with both dtr's the last two days regarding choosing a SNF for DC. Dtrs toured several more facilities. Dtrs choose not to appeal and ultimately decided on [facility]. SW updated all SNFs via [facility] and secured [facility]. PASRR completed and DC paperwork sent. Plan: DC 02/01 to [facility], intermediate Tricia Price, DONTE MARRW
[2024-01-31 16:00] VITALS: BP 152/66; PULSE 106; RESP 18; TEMP 35.5; O2SAT 94
[2024-01-31 23:15] VITALS: BP 160/75; PULSE 70
[2024-01-31] MEDS: Oxybutynin 5 MG Tablet 10 MG PO (23:36)
[2024-01-31] MEDS: Donepezil HCl 10 MG Tablet PO (23:36)
[2024-01-31] MEDS: MELATONIN 10 MG TABLET PO (23:36)
[2024-01-31] MEDS: Atorvastatin Calcium 20 MG Tablet PO (23:36)
[2024-02-01 06:02] LABS: Absolute Lymphocyte Count 2.05 X10^3/uL (0.83-4.51); Absolute Neutrophil Count 5.9 X10^3/uL (2.0-7.7); Basophil# 0.09 X10^3/uL; Basophil% 0.9 % (0-1); Eosinophil# 0.35 X10^3/uL; Eosinophils% 3.7 % (0-5); Hematocrit 33.4 % (37-47); Hemoglobin 10.4 g/dL (12.0-15.0); Lymphocyte # 2.05 X10^3/ul (0.83-4.51); Lymphocyte % 21.5 % (19-41); Mean Corp Hgb Conc 31.1 g/dL (32-36); Mean Corpuscular Hgb 28.9 pg (27.0-32.0); Mean Corpuscular Volume 92.8 fL (81-99); Mean Platelet Vol. 8.6 fl (6.2-12.0); Monocyte% 11.5 % (0-10); NRBC Flagged by Analyzer 0 % (0-5); Neutrophil # 5.88 X10^3/uL (2.7-7.7); Neutrophil % 61.7 % (47-70); Platelet Count 404 K/mm3 (150-450); RBC Distribution Width CV 14.8 % (11.6-14.6); RBC Distribution Width SD 50.1 fl (35.1-43.9); White Blood Count 9.5 K/mm3 (4.4-11.0)
[2024-02-01 06:23] VITALS: BP 154/68; PULSE 72
[2024-02-01] MEDS: Acetaminophen 500 MG Tablet 1000 MG PO ×3 (06:26→20:25)
[2024-02-01] MEDS: cloNIDine HCl 0.1 MG Tablet 0.100000000000000006 MG PO ×3 (06:26→20:23)
[2024-02-01] MEDS: Sucralfate 1 GM Tablet PO ×2 (06:26→15:52)
[2024-02-01 06:31] LABS: Anion Gap 6 (5-15); BUN 13 mg/dL (7-18); BUN/Creat Ratio 23.4 RATIO (10-20); Chloride 107 mmol/L (98-107); Creatinine, Serum 0.56 mg/dL (0.55-1.02); EST Glomerular Filtration Rate 112 mL/min (>60); Est Glom Filt Rate - Afr Amer 135 mL/min (>60); Estimated Creatinine Clearance 47.63 ml/min; Glucose 90 mg/dL (74-106); Potassium 3.8 mmol/L (3.5-5.1); Sodium Level 141 mmol/L (136-145)
[2024-02-01] MEDS: Ascorbic Acid 500 MG Tablet PO ×2 (07:53→17:38)
[2024-02-01] MEDS: Loratadine 10 MG Tablet PO (07:53)
[2024-02-01] MEDS: Calcium Carb/Vitamin D 1 TABLET Tablet PO ×2 (07:53→17:38)
[2024-02-01] MEDS: Potassium Chloride Oral Tablet 20 MEQ PO (07:53)
[2024-02-01] MEDS: Primidone 50 MG Tablet PO (07:54)
[2024-02-01] MEDS: Venlafaxine XR 150 MG Capsule PO (07:54)
[2024-02-01] MEDS: Montelukast 10 MG Tablet PO (07:54)
[2024-02-01] MEDS: Losartan Potassium 100 MG Tablet PO (07:54)
[2024-02-01] MEDS: Fluticasone/Salmeterol 232-14 Inhaler 1 PUFF INHALATION ×2 (07:54→20:23)
[2024-02-01] MEDS: Furosemide 40 MG Tablet PO ×2 (07:54)
[2024-02-01] MEDS: Pantoprazole Sodium 40 MG Tablet PO ×2 (07:54→20:25)
[2024-02-01] MEDS: Umeclidinium Bromide Inhaler 1 PUFF INHALATION (07:54)
[2024-02-01] MEDS: Iron Polysaccharide Complex 150 MG CAPSULE PO ×2 (07:54→20:24)
[2024-02-01] MEDS: Propranolol LA 80 MG Capsule PO ×2 (08:04→20:23)
[2024-02-01 10:00] VITALS: BP 140/72; PULSE 75
--- NOTE | 2024-02-01 14:10 | MDS.RN ---
Pain interview for MDS completed.
[2024-02-01 15:24] VITALS: BP 136/62; PULSE 80; RESP 16; TEMP 36.9; O2SAT 94
[2024-02-01] MEDS: Oxybutynin 5 MG Tablet 10 MG PO (20:24)
[2024-02-01] MEDS: Donepezil HCl 10 MG Tablet PO (20:24)
[2024-02-01] MEDS: MELATONIN 10 MG TABLET PO (20:24)
[2024-02-01] MEDS: Atorvastatin Calcium 20 MG Tablet PO (20:25)
--- NOTE | 2024-02-01 21:32 | CASEMGMT ---
Social Work BIMS (06/02) and PHQ-2 () completed for MDS assessment. DONTE Up PROC TECH
[2024-02-02] MEDS: Acetaminophen 500 MG Tablet 1000 MG PO (05:34)
[2024-02-02] MEDS: cloNIDine HCl 0.1 MG Tablet 0.100000000000000006 MG PO (05:34)
[2024-02-02] MEDS: Sucralfate 1 GM Tablet PO (05:34)
[2024-02-02 09:43] VITALS: BP 132/57; PULSE 75; RESP 18; O2SAT 98
[2024-02-02] MEDS: Fluticasone/Salmeterol 232-14 Inhaler 1 PUFF INHALATION (09:45)
[2024-02-02] MEDS: Umeclidinium Bromide Inhaler 1 PUFF INHALATION (09:45)
[2024-02-02] MEDS: Iron Polysaccharide Complex 150 MG CAPSULE PO (09:46)
[2024-02-02] MEDS: Montelukast 10 MG Tablet PO (09:47)
[2024-02-02] MEDS: Potassium Chloride Oral Tablet 20 MEQ PO (09:47)
[2024-02-02] MEDS: Ascorbic Acid 500 MG Tablet PO (09:47)
[2024-02-02] MEDS: Propranolol LA 80 MG Capsule PO (09:47)
[2024-02-02] MEDS: Loratadine 10 MG Tablet PO (09:48)
[2024-02-02] MEDS: Losartan Potassium 100 MG Tablet PO (09:48)
[2024-02-02] MEDS: Primidone 50 MG Tablet PO (09:48)
[2024-02-02] MEDS: Pantoprazole Sodium 40 MG Tablet PO (09:48)
[2024-02-02] MEDS: Calcium Carb/Vitamin D 1 TABLET Tablet PO (09:49)
[2024-02-02] MEDS: Venlafaxine XR 150 MG Capsule PO (09:49)
[2024-02-02 11:00] VITALS: BP 149/68; PULSE 64; RESP 18; TEMP 36.6; O2SAT 98
--- NOTE | 2024-02-02 11:40 | NURSING ---
Pt in pleasant mood, happy to discharge today. Daughter, Monica present on unit to pack belongings and transfer pt to [facility]. Vitals: bp-149/68, p-64, r-18, sp02-98% on room air, t-98. Denies pain. Monica requested most recent Hgb level (10.4 on 01/31), no other questions/concerns at this time. Pt leaves unit ~1135. Called report to nurseHui at [facility] ~1140.
== END 2024-02-02 11:35 | disposition intermediate care facility (04) | DRG 559 ==
PROVIDERS: Admitting Provider Family Medicine Geriatric Medicine; PCP Internal Medicine; Visit Provider Family Medicine Geriatric Medicine
DX: S32.9XXD Fracture of unspecified parts of lumbosacral spine and pelvis, subsequent encounter for fracture with routine healing (principal); K25.4 Chronic or unspecified gastric ulcer with hemorrhage; F02.80 Dementia in other diseases classified elsewhere, unspecified severity, without behavioral disturbance, psychotic disturbance, mood disturbance, and anxiety; J44.9 Chronic obstructive pulmonary disease, unspecified; G30.9 Alzheimer's disease, unspecified; I10 Essential (primary) hypertension; D50.9 Iron deficiency anemia, unspecified; F32.A Depression, unspecified; M19.90 Unspecified osteoarthritis, unspecified site; E78.5 Hyperlipidemia, unspecified; J30.9 Allergic rhinitis, unspecified; R25.1 Tremor, unspecified; W19.XXXD Unspecified fall, subsequent encounter; N32.81 Overactive bladder; Z87.891 Personal history of nicotine dependence; Z79.51 Long term (current) use of inhaled steroids; Z79.82 Long term (current) use of aspirin; Z79.899 Other long term (current) drug therapy; M81.0 Age-related osteoporosis without current pathological fracture
CPT/HCPCS: 36415; 80048; 83540; 85014; 85018; 85025; 92507; 92523; 97110; 97116; 97162; 97166; 97530; 97535; 97802; J7050; A4216; J2916

== ENCOUNTER 2024-03-13 21:34 | Emergency (ER) | payer MEDICARE, MEDICAID, SELFPAY ==
[2024-03-13 21:48] VITALS: BP 129/77; PULSE 75; RESP 18; TEMP 35.7; O2SAT 91
--- NOTE | 2024-03-13 22:08 | EKG12_ITS ---
Test Reason : DYSRHYTHMIA Blood Pressure : / mmHG Vent. Rate : 068 BPM Atrial Rate : 068 BPM P-R Int : 172 ms QRS Dur : 098 ms QT Int : 418 ms P-R-T Axes : -04 033 067 degrees QTc Int : 444 ms Sinus rhythm with occasional Premature ventricular complexes Nonspecific ST and T wave abnormality Abnormal ECG Confirmed by DENISE TAMAYO, YURI ([id number]), editor at large WADE RAMOS ([id number]) on 03/17/2024 10:35:39 AM Referred By: Confirmed By:ILANA WALKER MD
--- NOTE | 2024-03-13 22:11 | EDS_ITS ---
HPI History of Present Illness Chief Complaint: General Illness Narrative Narrative: 83-year-old female presents from the [facility] with her daughters because of multiple complaints. She has been having more frequent falls. They relate history that she had a pelvis fracture a few months ago and spent 3 weeks in the hospital and was sent to the [facility]. She has been there for the last month. She has had more frequent falls. She states it is mainly because she leaves her walker across the room and tries to ambulate. She fell again this evening 3 hours ago. She denies hitting her head or loss of consciousness. However, her daughters have been noting that she has been having more confusion lately. She has had urinary frequency but has history of overactive bladder according to the chart. Additionally, they comment on her losing weight over the last few weeks. She has been more weak. Patient denies fevers or chills, no cough or other symptoms. 1 daughter did notice that she had a lower pulse ox when they arrived at the custodial facility. [facility] Medical History Closed fracture of single pubic ramus of pelvis COPD (chronic obstructive pulmonary disease) Depression Fall HTN (hypertension) Hyperlipemia Inability to walk Osteoarthritis Home Medications alendronate 70 mg tablet 70 mg PO QWEEK supplement 01/12/24 [History Last Taken Unknown] atorvastatin 20 mg tablet 20 mg PO QHS hld 01/12/24 [History Last Taken 01/16/24] calcium carbonate 500 mg-vitamin D3 15 mcg (600 unit) tablet 1 tab PO BID calcuim 01/12/24 [History Last Taken 01/17/24] donepezil 10 mg tablet 10 mg PO QHS dementia 01/12/24 [History Last Taken 01/16/24] fluticasone fur. 100 mcg-umeclid 62.5 mcg-vilant 25 mcg inhalat.powder (Trelegy Ellipta) 1 inh inhalation DAILY COPD 01/12/24 [History Last Taken Unknown] loratadine 10 mg tablet (Loradamed) 10 mg PO DAILY congestion 01/12/24 [History Last Taken 01/17/24] montelukast 10 mg tablet 10 mg PO DAILY asthma 01/12/24 [History Last Taken 01/17/24] potassium chloride 20 mEq tablet,extended release 20 meq PO DAILY supplement 01/12/24 [History Last Taken Unknown] primidone 50 mg tablet 50 mg PO DAILY tremors 01/12/24 [History Last Taken 01/17/24] propranolol 80 mg capsule,24 hr,extended release 80 mg PO BID htn 01/12/24 [History Last Taken 01/17/24] torsemide 20 mg tablet 20 mg PO DAILY edema 01/12/24 [History Last Taken Unknown] venlafaxine 150 mg capsule,extended release 24 hr 150 mg PO DAILY depression 01/12/24 [History Last Taken 01/17/24] pantoprazole 40 mg tablet,delayed release 40 mg PO BID reflux #60 tabs 01/17/24 [Rx Last Taken Unknown] sucralfate 1 gram tablet 1 g PO 1HR_ACHS prevent ulcers #90 tabs 01/17/24 [Rx Last Taken Unknown] acetaminophen 500 mg tablet 1,000 mg (2 x 500 mg) PO Q8 #0 tabs 01/29/24 [Rx Last Taken Unknown] acidophilus 25 million cell-pectin, citrus 100 mg tablet 1 tab PO BID #0 tabs 01/29/24 [Rx Last Taken Unknown] ascorbic acid (vitamin C) 500 mg tablet 500 mg PO BIDCM #0 tabs 01/29/24 [Rx Last Taken Unknown] clonidine HCl 0.1 mg tablet 0.1 mg PO TID #0 tabs 01/29/24 [Rx Last Taken Unknown] losartan 100 mg tablet 100 mg PO DAILY #0 tabs 01/29/24 [Rx Last Taken Unknown] melatonin 10 mg sublingual tablet 10 mg PO QHS #0 tabs 01/29/24 [Rx Last Taken Unknown] oxybutynin chloride 5 mg tablet 10 mg (2 x 5 mg) PO QHS #0 tabs 01/29/24 [Rx Last Taken Unknown] polysaccharide iron complex 150 mg iron capsule (Ferrex) 150 mg PO BID #0 caps 01/29/24 [Rx Last Taken Unknown] Allergy/AdvReac Type Severity Reaction Status Date / Time Penicillins Allergy Unknown NEEDS Verified 03/13/24 21:35 FOLLOW-UP Surgical History History of bowel resection Social History household members: none housing: assisted living facility Smoking Status: Former smoker alcohol intake: never substance use type: does not use ROS ROS ED ROS Narrative Limited secondary to age. Constitutional: No fever, no chills. Positive generalized weakness per daughters. Frequent falls. HEENT: No sore throat. No neck pain. No loss of vision. No rhinorrhea. Cardiovascular: No chest pain. No palpitations. No pedal edema. Respiratory: No cough, no shortness of breath. Abdominal: No abdominal pain. No nausea. No vomiting. Positive weight loss. Being worked up for diarrhea by Dr. Bell. Genitourinary: No dysuria. No hematuria. Positive urinary frequency. Musculoskeletal: No myalgias. No arthralgias. Neurologic: No headaches. No dizziness. No lightheadedness. Skin: No rash. No change in color. Psychiatric: No depression. No anxiety. EXAM Physical Exam Narrative Exam Narrative: Afebrile. Vital signs noted. HEENT: Normocephalic. Atraumatic. PERRL, EOMI. Neck soft and supple. No point tenderness or step off. Cardiovascular: Regular rate and rhythm. No murmurs, rubs, or gallops appreciated. Respiratory: No tachypnea. Lungs clear to auscultation bilaterally. Gastrointestinal: Abdomen soft, nontender, with normoactive bowel sounds. No rebound or guarding. Neurological: Awake. Alert. Nonfocal, nonlateralizing. Skin: No rash. Normal color. No pallor. Musculoskeletal: No pedal edema. Full range of motion extremities. Flexion extension bilateral knees intact. Const Vital Signs: 03/13/24 21:48 03/13/24 22:28 03/13/24 22:34 Temperature 96.3 F L Temperature Source Temporal Pulse Rate 75 66 Respiratory Rate 18 22 H Respiratory Effort Normal Non-Labored Respiratory Pattern Normal Blood Pressure 129/77 H 126/60 H Blood Pressure Mean 94 82 Pulse Ox 91 99 Oxygen Delivery Method Room Air Room Air MDM MDM MDM Narrative Medical decision making narrative: In the differential diagnosis would be pneumonia versus urinary tract infection versus dehydration. Generalized workup was pursued to look for infectious process or electrolyte imbalance. Patient was bolused normal saline 1 L intravenously. EKG was obtained and interpreted by myself independently as normal sinus rhythm at 68 bpm with PVCs no acute ST changes. No STEMI. I reviewed her laboratory work and she has a normal white count of 10.1, hemoglobin normal at 12.8, hematocrit 39.8, platelet count normal at 235. Her potassium is slightly low at 3.2 which was replaced orally with 40 mill equivalents. Her daughter states that she supplements potassium. However, they state that she has had diarrhea for 2 months and is being worked up for C. difficile. BUN 25 and creatinine slightly elevated at 1.23. Glucose is appropriately elevated at 110 with a normal anion gap of 8. Alkaline phosphatase is elevated at 190 which I think is nonspecific as her other LFTs are normal. Urinalysis shows rare bacteria and 5- 10 WBCs. I do not feel that she has a urinary tract infection that is causing more confusion or that she is septic from it as she is showing no other signs of SIRS criteria. Urine culture was sent. I discussed this with her daughters, and we will withhold antibiotics until urine cultures have returned. Chest x- ray in 1 view interpreted by myself independently shows no evidence of pneumonia. I reviewed the radiology report which confirms my independent in terpretation. At this point in time, I have no metabolic reason for her increased confusion. Upon repeat examination approximately 00 20, she is sleeping comfortably. I feel she can be discharged safely home to follow-up with her primary care provider. Her daughter is will transport her back to the custodial facility. Disposition is discharged home in stable condition. History & Record Review Discussion w/independent historian: Patient and Family Lab Data Attestation: I reviewed the patient's lab results. Labs: Laboratory Results - last 24 hr 03/13/24 03/13/24 22:18 23:00 WBC 10.1 RBC 4.41 Hgb 12.8 Hct 39.8 MCV 90.2 MCH 29.0 MCHC 32.2 RDW Std Deviation 47.5 H RDW Coeff of Laura 14.5 Plt Count 235 MPV 8.9 Immature Gran % (Auto) 0.800 Neut % (Auto) 67.6 Lymph % (Auto) 21.1 Maries % (Auto) 8.5 Eos % (Auto) 1.3 Baso % (Auto) 0.7 Absolute Neuts (auto) 6.8 Absolute Lymphs (auto) 2.13 Nucleated RBC % 0 Sodium 136 Potassium 3.2 L Chloride 107 Carbon Dioxide 21.0 Anion Gap 8 BUN 25 H Creatinine 1.23 H Estim Creat Clear Calc 30.98 Est GFR (MDRD) Af Amer 54 L Est GFR (MDRD) Non-Af 45 L BUN/Creatinine Ratio 20.3 H Glucose 110 H Calcium 9.7 Total Bilirubin 0.40 AST 18 ALT 16 Alkaline Phosphatase 190 H Total Protein 6.7 Albumin 3.5 Globulin 3.2 Albumin/Globulin Ratio 1.1 Urine Color Yellow Urine Clarity Clear Urine pH 6.0 Ur Specific [place] 1.010 Urine Protein 15 H Urine Glucose (UA) Normal Urine Ketones Negative Urine Occult Blood Negative Urine Nitrite Negative Urine Bilirubin Negative Urine Urobilinogen Normal Ur Leukocyte Esterase 500 H Urine RBC 0 SEEN Urine WBC 5-10 SEEN Ur Squamous Epith Cells 0-5 SEEN Urine Bacteria RARE Hyaline Casts 0-5 SEEN Urine Mucus 0 SEEN Radiography Chest X-Ray - ED: 1 View and Read by ED Physician Diagnostic Testing: Clinical Impression(s) from Imaging Studies Chest X-Ray 03/13/24 23:08 IMPRESSION: No radiographic evidence of acute cardiopulmonary disease. Electronically Signed: Mic Patel MD at 0:16 EDT , Discharge Plan Triage Chief Complaint: General Illness ED Provider: Rg Schmid Dx/Rx/DC Orders Clinical Impression: Generalized weakness, Hypokalemia, Frequent falls, Alzheimer disease Instructions: ED DEMENTIA Alzheimer's, ED Fall with Uncertain Cause, ED Hypokalemia, ED Weakness (Uncertain Cause) Prescriptions: No Action atorvastatin 20 mg tablet 20 mg PO QHS Patient Comments: TAKE 1 TABLET BY MOUTH ONCE DAILY donepezil 10 mg tablet 10 mg PO QHS Patient Comments: TAKE 1 TABLET BY MOUTH NIGHTLY calcium carbonate-vitamin D3 500 mg-15 mcg (600 unit) tablet 1 tab PO BID Patient Comments: TAKE 1 TABLET BY MOUTH TWICE DAILY alendronate 70 mg tablet 70 mg PO QWEEK Patient Comments: TAKE 1 TABLET NEEDED EVERY SUN {Q1W1} venlafaxine 150 mg capsule,extended release 24hr 150 mg PO DAILY Patient Comments: TAKE 1 CAPSULE BY MOUTH EVERY DAY propranolol 80 mg capsule,extended release 24 hr 80 mg PO BID Patient Comments: TAKE 1 CAPSULE BY MOUTH TWICE DAILY HOLD FOR SBP <120 montelukast 10 mg tablet 10 mg PO DAILY Patient Comments: TAKE 1 TABLET BY MOUTH EVERY DAY potassium chloride 20 mEq tablet extended release 20 meq PO DAILY Patient Comments: TAKE 1 TABLET BY MOUTH ONCE DAILY WITH FOOD torsemide 20 mg tablet 20 mg PO DAILY primidone 50 mg tablet 50 mg PO DAILY Trelegy Ellipta 100-62.5-25 mcg blister with device 1 inh inhalation DAILY loratadine [Loradamed] 10 mg tablet 10 mg PO DAILY sucralfate 1 gram Tablet 1 g PO 1HR_ACHS Qty: 90 1RF pantoprazole 40 mg tablet,delayed release (DR/EC) 40 mg PO BID Qty: 60 2RF clonidine HCl 0.1 mg Tablet 0.1 mg PO TID Qty: 0 0RF polysaccharide iron complex [Ferrex 150] 150 mg iron Capsule 150 mg PO BID Qty: 0 0RF acetaminophen 500 mg Tablet 1,000 mg PO Q8 Qty: 0 0RF ascorbic acid (vitamin C) 500 mg Tablet 500 mg PO BIDCM Qty: 0 0RF oxybutynin chloride 5 mg Tablet 10 mg PO QHS Qty: 0 0RF losartan 100 mg Tablet 100 mg PO DAILY Qty: 0 0RF acidophilus-pectin, citrus 25 million cell -100 mg Tablet 1 tab PO BID Qty: 0 0RF melatonin 10 mg Tablet, Sublingual 10 mg PO QHS Qty: 0 0RF Primary Care Provider: Darcy Clifton Referrals: Darcy Clifton MD [Primary Care Provider] - As soon as possible Disposition Disposition: Shelter Facility Discharge Location: [facility] [place]
[2024-03-13] MEDS: 0.9% Normal Saline (1000mL) 1,000 ML 1000 ML IV (22:26)
[2024-03-13 22:28] LABS: Absolute Lymphocyte Count 2.13 X10^3/uL (0.83-4.51); Absolute Neutrophil Count 6.8 X10^3/uL (2.0-7.7); Basophil# 0.07 X10^3/uL; Basophil% 0.7 % (0-1); Eosinophil# 0.13 X10^3/uL; Eosinophils% 1.3 % (0-5); Hematocrit 39.8 % (37-47); Hemoglobin 12.8 g/dL (12.0-15.0); Lymphocyte # 2.13 X10^3/ul (0.83-4.51); Lymphocyte % 21.1 % (19-41); Mean Corp Hgb Conc 32.2 g/dL (32-36); Mean Corpuscular Volume 90.2 fL (81-99); Mean Platelet Vol. 8.9 fl (6.2-12.0); Monocyte# 0.86 X10^3/uL; Monocyte% 8.5 % (0-10); NRBC Flagged by Analyzer 0 % (0-5); Neutrophil # 6.81 X10^3/uL (2.7-7.7); Neutrophil % 67.6 % (47-70); Platelet Count 235 K/mm3 (150-450); RBC Distribution Width CV 14.5 % (11.6-14.6); RBC Distribution Width SD 47.5 fl (35.1-43.9); Red Blood Count 4.41 M/mm3 (4.2-5.4); White Blood Count 10.1 K/mm3 (4.4-11.0)
[2024-03-13 22:33] VITALS: BMI 23.5
[2024-03-13 22:34] VITALS: BP 126/60; PULSE 66; RESP 22; O2SAT 99
[2024-03-13 22:46] LABS: ALB/GLOB Ratio 1.1 RATIO (0.9-2.4); AST(SGOT) 18 U/L (15-37); Alanine Aminotransfer ALT/SGPT 16 U/L (13-56); Albumin, Serum 3.5 g/dL (3.2-5.0); Alkaline Phosphatase 190 U/L (45-117); Anion Gap 8 (5-15); BUN 25 mg/dL (7-18); BUN/Creat Ratio 20.3 RATIO (10-20); Calcium,Total 9.7 mg/dL (8.5-10.1); Chloride 107 mmol/L (98-107); Creatinine, Serum 1.23 mg/dL (0.55-1.02); EST Glomerular Filtration Rate 45 mL/min (>60); Est Glom Filt Rate - Afr Amer 54 mL/min (>60); Estimated Creatinine Clearance 30.98 ml/min; Globulin 3.2 g/dL (2.2-4.2); Glucose 110 mg/dL (74-106); Potassium 3.2 mmol/L (3.5-5.1); Protein, Total 6.7 g/dL (6.4-8.2); Sodium Level 136 mmol/L (136-145)
[2024-03-13 23:03] LABS: Mucous, Urine 0 SEEN /hpf (<or=2+); Red Blood Cells-Urine 0 SEEN /hpf (0-5)
--- NOTE | 2024-03-13 23:08 | RAD_ITS ---
EXAM: XR CHEST, 1 VIEW CLINICAL INDICATION: CAD TECHNIQUE: Frontal view of the chest. COMPARISON: 01/12/2024 FINDINGS: LUNGS AND PLEURAL SPACES: Unremarkable. No consolidation or edema. No pneumothorax. No effusion. HEART: Unremarkable. Cardiac silhouette not enlarged. MEDIASTINUM: Central airways and mediastinal contour are unremarkable. BONES/JOINTS: Unremarkable. No acute fracture. SOFT TISSUES: Unremarkable. RAD/Chest 1 View (Portable) IMPRESSION: No radiographic evidence of acute cardiopulmonary disease. Electronically Signed: Mic Patel MD at 0:16 EDT ,
[2024-03-13 23:09] LABS: Color, Urine Yellow (Yellow); Glucose, Dipstick Normal (Normal); Ketone-Dipstick Negative (Negative); Leukocyte Esterase-Dipstick 500 /ul (Negative); Nitrite-Dipstick Negative (Negative); Occult Blood-Urine Negative /ul (Negative); Protein-Dipstick 15 mg/dl (Negative); Urine Bilirubin Dipstick Negative (Negative); Urine Clarity Clear (Clear); Urine Urobilinogen Normal (Normal)
[2024-03-13 23:19] LABS: Bacteria RARE /hpf (None Seen); Hyaline Cast 0-5 SEEN /lpf (0-5); Squamous Epithelial Cells - UA 0-5 SEEN /hpf (5-10); White Blood Cells 5-10 SEEN /hpf (0-5)
[2024-03-14] MEDS: Potassium Chloride Oral Tablet 20 MEQ 40 MEQ PO (00:52)
[2024-03-14 01:00] VITALS: BP 100/46; PULSE 64; RESP 20; TEMP 35.9; O2SAT 94
[2024-03-14 01:01] VITALS: BP 100/46; PULSE 64; RESP 20; TEMP 35.9; O2SAT 94
== END 2024-03-14 01:03 | disposition skilled nursing facility (03) ==
PROVIDERS: Emergency Provider Emergency Medicine; PCP Internal Medicine; Visit Provider Emergency Medicine
DX: R53.1 Weakness (principal); G30.9 Alzheimer's disease, unspecified; J44.9 Chronic obstructive pulmonary disease, unspecified; E87.6 Hypokalemia; Z87.891 Personal history of nicotine dependence
CPT/HCPCS: 71045; 80053; 81001; 85025; 93005; 96360; 96361; 99283; J7030; A4216

== ENCOUNTER 2024-03-24 10:17 | Emergency (ER) | payer MEDICARE, MEDICAID, SELFPAY ==
[2024-03-24 10:18] VITALS: BP 161/82; PULSE 75; RESP 18; TEMP 35.9; O2SAT 98
[2024-03-24 11:17] LABS: Absolute Lymphocyte Count 1.52 X10^3/uL (0.83-4.51); Absolute Neutrophil Count 6.8 X10^3/uL (2.0-7.7); Basophil# 0.06 X10^3/uL; Basophil% 0.7 % (0-1); Eosinophil# 0.05 X10^3/uL; Eosinophils% 0.6 % (0-5); Hematocrit 44.7 % (37-47); Lymphocyte # 1.52 X10^3/ul (0.83-4.51); Lymphocyte % 16.8 % (19-41); Mean Corp Hgb Conc 31.3 g/dL (32-36); Mean Corpuscular Hgb 28.7 pg (27.0-32.0); Mean Corpuscular Volume 91.8 fL (81-99); Mean Platelet Vol. 8.5 fl (6.2-12.0); Monocyte% 6.6 % (0-10); NRBC Flagged by Analyzer 0 % (0-5); Neutrophil # 6.78 X10^3/uL (2.7-7.7); Neutrophil % 74.7 % (47-70); Platelet Count 294 K/mm3 (150-450); RBC Distribution Width CV 15.1 % (11.6-14.6); RBC Distribution Width SD 50.8 fl (35.1-43.9); Red Blood Count 4.87 M/mm3 (4.2-5.4); White Blood Count 9.1 K/mm3 (4.4-11.0)
[2024-03-24 11:35] LABS: AST(SGOT) 16 U/L (15-37); Alanine Aminotransfer ALT/SGPT 20 U/L (13-56); Albumin, Serum 3.7 g/dL (3.2-5.0); Alkaline Phosphatase 231 U/L (45-117); Anion Gap 6 (5-15); BUN 14 mg/dL (7-18); BUN/Creat Ratio 13.1 RATIO (10-20); Calcium,Total 10.4 mg/dL (8.5-10.1); Chloride 117 mmol/L (98-107); Creatinine, Serum 1.07 mg/dL (0.55-1.02); EST Glomerular Filtration Rate 52 mL/min (>60); Est Glom Filt Rate - Afr Amer 63 mL/min (>60); Globulin 3.8 g/dL (2.2-4.2); Glucose 126 mg/dL (74-106); Potassium 3.5 mmol/L (3.5-5.1); Protein, Total 7.5 g/dL (6.4-8.2); Sodium Level 140 mmol/L (136-145); Troponin-I HS 12 pg/mL (3.0-54.0)
[2024-03-24] MEDS: 0.9% Normal Saline (1000mL) 1,000 ML 999 ML IV (11:42)
--- NOTE | 2024-03-24 11:45 | CT_ITS ---
STUDY: CT BRAIN WITHOUT CONTRAST REASON FOR EXAM: Female, 83 years old. Confusion. Patient has dementia. RADIATION DOSAGE (If Supplied By Facility): CTDIvol = ( 44.99 ) mGy, DLP = ( 745.49 ) mGycm TECHNIQUE: Transaxial CT imaging of the brain was performed without administration of intravenous contrast material. Individualized dose optimization techniques were used for this CT. COMPARISON: No relevant priors. FINDINGS: Normal soft tissue structures. Normal calvarium. There is mild cerebral atrophy with widening of the extra-axial spaces and ventricular dilatation. There are areas of decreased attenuation within the white matter tracts of the supratentorial brain, consistent with microvascular disease changes. Normal basal ganglia and thalami. Normal brainstem. Normal cerebellum. There is no intracranial hemorrhage. There are no findings of an acute ischemic infarction. Atherosclerotic plaque formation of the cavernous portions of the internal carotid arteries and vertebral arteries. Normal visualized paranasal sinuses. CT/Brain/Head without Contrast IMPRESSION: Chronic involutional changes of the brain. Electronically Signed: Eddie Waller MD at 12:12 EDT ,
[2024-03-24 12:18] VITALS: BP 155/73; PULSE 80; RESP 16; O2SAT 98
--- NOTE | 2024-03-24 12:45 | EX.ED.DYSGE1 ---
HPI History of Present Illness Chief Complaint: Mental Status Change Narrative Narrative: 83-year-old female presenting with her family with progressive debility. She has had several falls over the last 2 weeks. She was already seen in the ER for these falls and had lab work done her family states she was dehydrated. Family states today that the nursing staff at [facility] stated that the family needed to bring her back to check for stroke. Patient does not have a slurred speech or facial droop. She is moving all 4 extremities. The concern for stroke was due to the patient being off balance and falling. Patient has progressive weakness generally without any focal deficits. [facility] Medical History Closed fracture of single pubic ramus of pelvis COPD (chronic obstructive pulmonary disease) Depression Fall HTN (hypertension) Hyperlipemia Inability to walk Osteoarthritis Home Medications alendronate 70 mg tablet 70 mg PO QWEEK supplement 01/12/24 [History Last Taken Unknown] atorvastatin 20 mg tablet 20 mg PO QHS hld 01/12/24 [History Last Taken 01/16/24] calcium carbonate 500 mg-vitamin D3 15 mcg (600 unit) tablet 1 tab PO BID calcuim 01/12/24 [History Last Taken 01/17/24] donepezil 10 mg tablet 10 mg PO QHS dementia 01/12/24 [History Last Taken 01/16/24] fluticasone fur. 100 mcg-umeclid 62.5 mcg-vilant 25 mcg inhalat.powder (Trelegy Ellipta) 1 inh inhalation DAILY COPD 01/12/24 [History Last Taken Unknown] loratadine 10 mg tablet (Loradamed) 10 mg PO DAILY congestion 01/12/24 [History Last Taken 01/17/24] montelukast 10 mg tablet 10 mg PO DAILY asthma 01/12/24 [History Last Taken 01/17/24] potassium chloride 20 mEq tablet,extended release 20 meq PO DAILY supplement 01/12/24 [History Last Taken Unknown] primidone 50 mg tablet 50 mg PO DAILY tremors 01/12/24 [History Last Taken 01/17/24] propranolol 80 mg capsule,24 hr,extended release 80 mg PO BID htn 01/12/24 [History Last Taken 01/17/24] torsemide 20 mg tablet 20 mg PO DAILY edema 01/12/24 [History Last Taken Unknown] venlafaxine 150 mg capsule,extended release 24 hr 150 mg PO DAILY depression 01/12/24 [History Last Taken 01/17/24] pantoprazole 40 mg tablet,delayed release 40 mg PO BID reflux #60 tabs 01/17/24 [Rx Last Taken Unknown] sucralfate 1 gram tablet 1 g PO 1HR_ACHS prevent ulcers #90 tabs 01/17/24 [Rx Last Taken Unknown] acetaminophen 500 mg tablet 1,000 mg (2 x 500 mg) PO Q8 #0 tabs 01/29/24 [Rx Last Taken Unknown] acidophilus 25 million cell-pectin, citrus 100 mg tablet 1 tab PO BID #0 tabs 01/29/24 [Rx Last Taken Unknown] ascorbic acid (vitamin C) 500 mg tablet 500 mg PO BIDCM #0 tabs 01/29/24 [Rx Last Taken Unknown] clonidine HCl 0.1 mg tablet 0.1 mg PO TID #0 tabs 01/29/24 [Rx Last Taken Unknown] losartan 100 mg tablet 100 mg PO DAILY #0 tabs 01/29/24 [Rx Last Taken Unknown] melatonin 10 mg sublingual tablet 10 mg PO QHS #0 tabs 01/29/24 [Rx Last Taken Unknown] oxybutynin chloride 5 mg tablet 10 mg (2 x 5 mg) PO QHS #0 tabs 01/29/24 [Rx Last Taken Unknown] polysaccharide iron complex 150 mg iron capsule (Ferrex) 150 mg PO BID #0 caps 01/29/24 [Rx Last Taken Unknown] colestipol 1 gram tablet 1 g PO BID #60 tabs 03/17/24 [Rx Last Taken Unknown] Allergy/AdvReac Type Severity Reaction Status Date / Time Penicillins Allergy Unknown NEEDS Verified 03/24/24 10:29 FOLLOW-UP Surgical History History of bowel resection Social History household members: none housing: assisted living facility Smoking Status: Former smoker alcohol intake: never substance use type: does not use ROS ROS ED Constitutional Constitutional ED: Denies chills, fever(s) or sweats Eyes Eyes: Denies blurry vision or change in vision ENT ENT ED: Denies ear pain or sore throat Cardiovascular Cardiovascular: Denies chest pain, palpitations or racing heartbeat Respiratory/Chest Respiratory/Chest: Denies cough, dyspnea or sputum Gastrointestinal Gastrointestinal: Denies abdominal pain, constipation, diarrhea, nausea or vomiting Genitourinary Genitourinary ED: Denies dysuria, hematuria or urinary frequency Musculoskeletal Musculoskeletal: Denies arthralgias, myalgias or neck pain Integumentary Denies abscess, Abrasions or rash Neurologic Neurologic: Denies headache(s), paresthesias or weakness Psychiatric Psychiatric: Denies anxiety, depression, suicidal ideation or suicidal thoughts Endocrine Endocrinology: Denies polydipsia or polyuria EXAM Physical Exam Const Vital Signs: 03/24/24 10:18 03/24/24 12:18 03/24/24 13:44 Temperature 96.6 F L 98.3 F Temperature Source Temporal Pulse Rate 75 80 67 Respiratory Rate 18 16 20 H Blood Pressure 161/82 H 155/73 H 143/69 H Blood Pressure Mean 108 100 93 Pulse Ox 98 98 98 Oxygen Delivery Method Room Air Room Air Positive well nourished General Appearance ED: NAD HEENT Reports moist mucous membranes Eyes PERRL and EOMs intact bilaterally Neck no lymphadenopathy Chest Wall inspection of chest normal Resp normal respiratory effort and clear to auscultation bilaterally Auscultation: Negative for rales, rhonchi or wheezes Cardio regular rate and regular rhythm Neuro CN's II-XII intact bilaterally and no sensory deficits noted Sensorium / Orientation: alert Motor Exam: strength 5/5 throughout Psych Psych Narrative: Mental status at baseline Skin no rashes or lesions noted MDM MDM MDM Narrative Medical decision making narrative: Patient presenting with increasing debility. She is exhibited no signs or symptoms of stroke. Her neurologic exam is normal although she does have some baseline confusion and a diagnosis of Alzheimer's disease. Family states that she is not eating and drinking very much but this is not new. We did repeat some lab work today and her CBC showed a normal white blood cell count 9.1. Hemoglobin was 14. Platelets are normal at 94. Creatinine was slightly elevated at 1.07 today and she was given a liter normal saline. High-sensitivity troponin is 12. EKG on my interpretation showed a sinus rhythm at 69 bpm without sign ischemic change. CT brain interpreted as negative. I did review this and agree. Patient has not made a urine for us but I spoke at length with the patient's daughter and she is already had a urinalysis done since this started she does not want to have repeat another one. We discussed return precautions. Impression: 1. History of dementia 2. Debility 3. Falls Lab Data Attestation: I reviewed the patient's lab results. Labs: Laboratory Results - last 24 hr 03/24/24 11:10 WBC 9.1 RBC 4.87 Hgb 14.0 Hct 44.7 MCV 91.8 MCH 28.7 MCHC 31.3 L RDW Std Deviation 50.8 H RDW Coeff of Laura 15.1 H Plt Count 294 MPV 8.5 Immature Gran % (Auto) 0.600 Neut % (Auto) 74.7 H Lymph % (Auto) 16.8 L [place]cl[place] % (Auto) 6.6 Eos % (Auto) 0.6 Baso % (Auto) 0.7 Absolute Neuts (auto) 6.8 Absolute Lymphs (auto) 1.52 Nucleated RBC % 0 Sodium 140 Potassium 3.5 Chloride 117 H Carbon Dioxide 17.0 L Anion Gap 6 BUN 14 Creatinine 1.07 H Est GFR (MDRD) Af Amer 63 Est GFR (MDRD) Non-Af 52 L BUN/Creatinine Ratio 13.1 Glucose 126 H Calcium 10.4 H Total Bilirubin 0.40 AST 16 ALT 20 Alkaline Phosphatase 231 H Troponin I High Sens 12 Total Protein 7.5 Albumin 3.7 Globulin 3.8 Albumin/Globulin Ratio 1.0 Radiography Diagnostic Testing: Clinical Impression(s) from Imaging Studies Brain CT 03/24/24 11:45 IMPRESSION: Chronic involutional changes of the brain. Electronically Signed: Eddie Waller MD at 12:12 EDT , Discharge Plan Triage Chief Complaint: Mental Status Change ED Provider: Henok Friend Dx/Rx/DC Orders Instructions: ED CAREGIVER SUPPORT for DEMENTIA Prescriptions: No Action atorvastatin 20 mg tablet 20 mg PO QHS Patient Comments: TAKE 1 TABLET BY MOUTH ONCE DAILY donepezil 10 mg tablet 10 mg PO QHS Patient Comments: TAKE 1 TABLET BY MOUTH NIGHTLY calcium carbonate-vitamin D3 500 mg-15 mcg (600 unit) tablet 1 tab PO BID Patient Comments: TAKE 1 TABLET BY MOUTH TWICE DAILY alendronate 70 mg tablet 70 mg PO QWEEK Patient Comments: TAKE 1 TABLET NEEDED EVERY SUN {Q1W1} venlafaxine 150 mg capsule,extended release 24hr 150 mg PO DAILY Patient Comments: TAKE 1 CAPSULE BY MOUTH EVERY DAY propranolol 80 mg capsule,extended release 24 hr 80 mg PO BID Patient Comments: TAKE 1 CAPSULE BY MOUTH TWICE DAILY HOLD FOR SBP <120 montelukast 10 mg tablet 10 mg PO DAILY Patient Comments: TAKE 1 TABLET BY MOUTH EVERY DAY potassium chloride 20 mEq tablet extended release 20 meq PO DAILY Patient Comments: TAKE 1 TABLET BY MOUTH ONCE DAILY WITH FOOD torsemide 20 mg tablet 20 mg PO DAILY primidone 50 mg tablet 50 mg PO DAILY Trelegy Ellipta 100-62.5-25 mcg blister with device 1 inh inhalation DAILY loratadine [Loradamed] 10 mg tablet 10 mg PO DAILY sucralfate 1 gram Tablet 1 g PO 1HR_ACHS Qty: 90 1RF pantoprazole 40 mg tablet,delayed release (DR/EC) 40 mg PO BID Qty: 60 2RF clonidine HCl 0.1 mg Tablet 0.1 mg PO TID Qty: 0 0RF polysaccharide iron complex [Ferrex 150] 150 mg iron Capsule 150 mg PO BID Qty: 0 0RF acetaminophen 500 mg Tablet 1,000 mg PO Q8 Qty: 0 0RF ascorbic acid (vitamin C) 500 mg Tablet 500 mg PO BIDCM Qty: 0 0RF oxybutynin chloride 5 mg Tablet 10 mg PO QHS Qty: 0 0RF losartan 100 mg Tablet 100 mg PO DAILY Qty: 0 0RF acidophilus-pectin, citrus 25 million cell -100 mg Tablet 1 tab PO BID Qty: 0 0RF melatonin 10 mg Tablet, Sublingual 10 mg PO QHS Qty: 0 0RF colestipol 1 gram tablet 1 g PO BID Qty: 60 0RF Primary Care Provider: Darcy Clifton Referrals: Darcy Clifton MD [Primary Care Provider] - Disposition Disposition: Nursing Home Facility Discharge Location: [facility] Discharge Date/Time: 03/24/24 13:45
--- NOTE | 2024-03-24 12:49 | EKG12_ITS ---
Test Reason : FALL Blood Pressure : / mmHG Vent. Rate : 069 BPM Atrial Rate : 069 BPM P-R Int : 156 ms QRS Dur : 088 ms QT Int : 390 ms P-R-T Axes : 055 052 064 degrees QTc Int : 417 ms Normal sinus rhythm Normal ECG Confirmed by Goran Alcantar ([id number]), photography editor WADE RAMOS ([id number]) on 03/25/2024 9:57:06 AM Referred By: Confirmed By:Goran Alcantar
[2024-03-24 13:44] VITALS: BP 143/69; PULSE 67; RESP 20; TEMP 36.8; O2SAT 98
== END 2024-03-24 13:45 | disposition skilled nursing facility (03) ==
PROVIDERS: Emergency Provider Student in an Organized Health Care Education/Training Program; PCP Internal Medicine; Visit Provider Student in an Organized Health Care Education/Training Program
DX: G30.9 Alzheimer's disease, unspecified (principal); F02.80 Dementia in other diseases classified elsewhere, unspecified severity, without behavioral disturbance, psychotic disturbance, mood disturbance, and anxiety; J44.9 Chronic obstructive pulmonary disease, unspecified; R29.6 Repeated falls; I10 Essential (primary) hypertension; E78.5 Hyperlipidemia, unspecified; Z87.891 Personal history of nicotine dependence; Z79.899 Other long term (current) drug therapy
CPT/HCPCS: 70450; 80053; 84484; 85025; 93005; 96360; 99282; J7030; A4216

== ENCOUNTER → 2024-03-26 | Outpatient (CLI) | payer MEDICARE, MEDICAID, SELFPAY ==
[2024-04-02 16:10] LABS: Pancreatic Elastase, Fecal 109 (>200)
[2024-04-03 00:07] LABS: Calprotectin, Stool 133 ug/g (0-120)
== END | disposition home or self-care (01) ==
PROVIDERS: Referring Provider Internal Medicine Gastroenterology; Visit Provider Internal Medicine Gastroenterology
DX: K58.9 Irritable bowel syndrome, unspecified (principal); R19.7 Diarrhea, unspecified
CPT/HCPCS: 82653; 83630; 83993; 87177; 87209; 87329; 87493

== ENCOUNTER 2024-08-23 18:56 | Inpatient (IN) | payer MEDICARE, MEDICAID, SELFPAY ==
[2024-08-23] VITALS (8 sets, daily range): BP systolic 139–162; BP diastolic 75–92; PULSE 78–103; RESP 22–38; TEMP 36.6–37.2; O2SAT 86–96; BMI 22.4; BMI 21.7
--- NOTE | 2024-08-23 19:08 | EDS_ITS ---
HPI History of Present Illness Chief Complaint: Shortness of Breath [facility] Medical History (Updated 08/23/24 @ 23:[address] Valerie Freitas MD) Chronic hypoxic respiratory failure, on home oxygen therapy GERD (gastroesophageal reflux disease) Alzheimer dementia Essential tremor History of GI bleed Chronic anemia Anxiety and depression Chronic diarrhea Exocrine pancreatic insufficiency Former smoker Closed fracture of single pubic ramus of pelvis COPD (chronic obstructive pulmonary disease) Hyperlipemia Osteoarthritis HTN (hypertension) Home Medications ?Medication ?Instructions ?Recorded ?Last Taken ?Type alendronate 70 mg tablet 70 mg PO QWEEK supplement 01/12/24 08/17/24 History atorvastatin 20 mg tablet 20 mg PO QHS hld 01/12/24 01/16/24 History calcium 500 mg (as 1 tab PO BID calcuim 01/12/24 01/17/24 History carbonate)-vitamin D3 15 mcg (600 unit) tablet donepezil 10 mg tablet 10 mg PO QHS dementia 01/12/24 01/16/24 History loratadine 10 mg tablet (Loradamed) 10 mg PO DAILY congestion 01/12/24 01/17/24 History montelukast 10 mg tablet 10 mg PO DAILY asthma 01/12/24 01/17/24 History primidone 50 mg tablet 50 mg PO DAILY tremors 01/12/24 01/17/24 History propranolol 80 mg capsule,24 80 mg PO BID htn 01/12/24 01/17/24 History hr,extended release venlafaxine 150 mg 150 mg PO DAILY depression 01/12/24 01/17/24 History capsule,extended release 24 hr pantoprazole 40 mg tablet,delayed 40 mg PO BID reflux #60 tabs 01/17/24 Unknown Rx release acetaminophen 500 mg tablet 1,000 mg (2 x 500 mg) PO Q8 #0 tabs 01/29/24 Unknown Rx acidophilus 25 million 1 tab PO BID #0 tabs 01/29/24 Unknown Rx cell-pectin, citrus 100 mg tablet ascorbic acid (vitamin C) 500 mg 500 mg PO BIDCM #0 tabs 01/29/24 Unknown Rx tablet clonidine HCl 0.1 mg tablet 0.1 mg PO TID #0 tabs 01/29/24 Unknown Rx losartan 100 mg tablet 100 mg PO DAILY #0 tabs 01/29/24 Unknown Rx melatonin 10 mg sublingual tablet 10 mg PO QHS #0 tabs 01/29/24 Unknown Rx oxybutynin chloride 5 mg tablet 10 mg (2 x 5 mg) PO QHS #0 tabs 01/29/24 Unknown Rx polysaccharide iron complex 150 mg 150 mg PO BID #0 caps 01/29/24 Unknown Rx iron capsule (Ferrex) budesonide 3 mg 6 mg (2 x 3 mg) PO DAILY #60 ea 03/31/24 Unknown Rx capsule,delayed,extended release cholestyramine-aspartame 4 gram 4 g PO DAILY #30 ea 03/31/24 Unknown Rx oral powder for susp in a packet aspirin 81 mg tablet,delayed 81 mg PO DAILY 04/07/24 Unknown History release (Adult Low Dose Aspirin) zrznnj-fvjjnhag-puqmfmb 1 cap PO TID #90 caps 04/07/24 Unknown Rx 36,000-114,000-180,000 unit capsule,delay rel (Creon) diphenoxylate-atropine 2.5 2 tab PO BID PRN diarrhea #120 tabs 07/10/24 Unknown Rx mg-0.025 mg tablet (Lomotil) potassium chloride 20 mEq/15 mL 40 meq PO BID 08/23/24 Unknown History oral liquid vibegron 75 mg tablet (Gemtesa) 75 mg PO DAILY 08/23/24 Unknown History Allergy/AdvReac Type Severity Reaction Status Date / Time Penicillins Allergy Unknown NEEDS Verified 08/23/24 18:56 FOLLOW-UP Family History (Updated 08/23/24 @ 23:[address] Valerie Freitas MD) Mother Cancer Father Cancer Hypertension Surgical History (Updated 08/23/24 @ 23:[address] Valerie Freitas MD) Status post wrist surgery History of hip surgery History of hysterectomy History of bowel resection Social History (Updated 08/23/24 @ 23:[address] Valerie Freitas MD) household members: none housing: assisted living facility Smoking Status: Former smoker how long ago did patient quit smoking: Quit ~ 15 years ago, < 1/2 ppd per family. alcohol intake: never substance use type: does not use EXAM Physical Exam Const Vital Signs: 08/23/24 18:57 08/23/24 19:19 08/23/24 19:25 Temperature 98.5 F Temperature Source Oral Pulse Rate 103 H Respiratory Rate 22 H Respiratory Effort Short of Breath Respiratory Depth Shallow Respiratory Pattern Tachypnea Blood Pressure 140/92 H Blood Pressure Mean 108 Pulse Ox 91 96 Oxygen Delivery Method Room Air Room Air Nasal Cannula Oxygen Flow Rate (L/min) 2 08/23/24 19:29 08/23/24 20:00 08/23/24 21:42 Temperature 98.6 F Temperature Source Oral Pulse Rate 100 93 89 Respiratory Rate 28 H 38 H 29 H Respiratory Effort Respiratory Depth Respiratory Pattern Tachypnea Blood Pressure 162/77 H 157/82 H Blood Pressure Mean 105 107 Pulse Ox 90 95 Oxygen Delivery Method Nasal Cannula Oxygen Flow Rate (L/min) 2 08/23/24 22:09 Temperature Temperature Source Pulse Rate Respiratory Rate Respiratory Effort Short of Breath Respiratory Depth Shallow Respiratory Pattern Tachypnea Blood Pressure Blood Pressure Mean Pulse Ox Oxygen Delivery Method Nasal Cannula Oxygen Flow Rate (L/min) 2 MDM MDM MDM Narrative Medical decision making narrative: HISTORY OF PRESENT ILLNESS: 84 female presents with shortness of breath. No she denies O2 at night. Notes she has had tremors and diarrhea per daughter. No she is not eating well. Notes she has been more fatigued tired and also complains of headache. Per the patient's daughter she noticed today the patient was more fatigued and having creasing shortness of breath or increased respiratory rate. This concerned her. She also noted intention tremor when the patient tried to reach for certain objects perform certain tasks. Denies any loss of consciousness or history of seizure. Also notes she had several wet loose stools. No recent travel, antibiotics or hospitalizations. The patient daughter also endorses a wet cough but denies fever. The patient denies chest pain or syncope. The patient denies recent surgery in the last 4 weeks or immobilization in the last 3 days, denies previous diagnosis of DVT or PE, hemoptysis, unilateral leg swelling or malignancy with treatment the last 6 months or palliative. No estrogen use noted. REVIEW OF SYSTEMS: Pertinent positives: Shortness of breath, dyspnea, diarrhea, fatigue, tremor Pertinent negatives: Syncope, chest pain, focal weakness, PHYSICAL EXAM: Nursing triage notes reviewed, Vital signs reviewed Constitutional: please see mdm HENT: MMM Eyes: Pupils equal round and reactive to light, Extraocular muscles intact Neck: No stridor, no JVD, full neck ROM Lungs: Prolonged expiratory phase, coarse breath sounds, slight end expiratory wheezing, noted increased work of breathing, accessory muscle use, slight conversational dyspnea. Heart: Regular rate and rhythm, No murmurs, No rubs and No gallops, 2+ distal pulses (radial, femoral, posterior tibial) in all extremities Abdomen: Soft, there is no tenderness, rigidity, rebound or guarding, no obvious peritoneal signs, no palpable pulsatile abdominal masses, no auscultated abdominal bruit : No CVAT Extremities: No edema Neuro: No focal neurological deficits, cranial nerves II through XII intact, 5/5 strength in all extremities. Intact sensation to light touch in all extremities, 2+ reflexes bilateral patella tendons. Normal gait. No ataxia. Skin: No rash or lesions noted MEDICAL DECISION MAKING: Chief Complaint: Dyspnea External records reviewed: Reviewed the patient's medication list, allergy list, vital signs, problem list, recent imaging: Chest x-ray from February 2024 shows no radiographic abnormality Factors affecting care: COPD, Alzheimer's disease, depression, hyperlipidemia, hypertension, GI bleed, pancreatic insufficiency Social determinants of health: group home patient History obtained from others: The patient's daughter Consults: Internal medicine MDM Narrative: The patient was initially tachycardic rate of 103, tachypneic at 22 saturating 86% room air with a good waveform. Initial exam consistent with likely COPD exacerbation. I treat the patient empirically for COPD with DuoNeb breathing treatments and Solu-Medrol. I considered the following differential diagnosis: COPD exacerbation, pneumonia, CHF, ACS, arrhythmia, COVID, PE I obtained a broad lab and imaging workup to further elucidate etiology of the patient's complaints. Specifically ruling out signs of COVID, pneumonia, CHF, ACS, arrhythmia, I considered PE however thought this was less likely given focal lung findings a low risk Wells score ALL IMAGES (IF OBTAINED) HAVE BEEN PERSONALLY REVIEWED AND INTERPRETED BY MYSELF. EKG with normal sinus rhythm, normal axis, normal intervals with QTc 416, no evidence of STEMI VBG without significant acidosis or CO2 retention CBC with leukocytosis suggestive of systemic inflammation, no anemia or thrombocytopenia BMP without evidence of significant electrolyte abnormalities, no anion gap, no acute kidney injury. High-sensitivity troponin is negative, no evidence of myocardial ischemia BNP slightly elevated consistent with slight volume overload Chest x-ray read reviewed myself shows evidence of probable right sided pneumonia. Radiologist agrees with my interpretation Upon reevaluation patient was noted to have improved work of breathing after breathing treatment. No indication for noninvasive insulation or advanced airway at this time. The etiology of the patient's presentation likely pneumonia exacerbating underlying COPD. Given white blood cell count, hypoxia and evidence of pneumonia will admit for IV antibiotics and further monitoring. The patient and/or family, caregivers express understanding. The patient and/or family, caregivers agrees with the plan. Shared decision making: I will have a discussion with the patient and or visitors regarding risk/benefits of further testing or admission. They will be made aware of of the risk/benefits inherent in this decision they will be given the opportunity to voice understanding. Total critical care time today provided was at least 0 minutes. This excludes separately billable procedures. Critical care time (if documented) is secondary to the patient having high probability of clinically significant/life threatening deterioration in the patient's condition which required my urgent intervention. Impression: 1. Dyspnea 2. History of COPD 3. Diarrhea 4. Fatigue 5. Commune acquired 6. Hypoxia Dispo: Admit to [facility] This note was generated with [employer] dictation software. It may contain incorrect words, spelling, and punctuation that were not noted in review of the chart prior to signing. Lab Data Labs: Laboratory Results - last 24 hr 08/23/24 19:35 WBC 15.7 H RBC 4.23 Hgb 13.4 Hct 42.8 MCV 101.2 H MCH 31.7 MCHC 31.3 L RDW Std Deviation 44.7 H RDW Coeff of Laura 11.9 Plt Count 210 MPV 9.4 Immature Gran % (Auto) 0.400 Neut % (Auto) 75.7 H Lymph % (Auto) 11.9 L [place] % (Auto) 11.6 H Eos % (Auto) 0.1 Baso % (Auto) 0.3 Absolute Neuts (auto) 11.9 H Absolute Lymphs (auto) 1.87 Nucleated RBC % 0 Differential Comment SEE COMMENT Diff Path Review May foll Platelet Estimate ADEQUATE RBC Morphology N CHROM Anisocytosis 1+ Macrocytosis 1+ Ovalocytes RARE Sodium 137 Potassium 4.0 Chloride 102 Carbon Dioxide 29.0 Anion Gap 6 BUN 12 Creatinine 0.64 Estim Creat Clear Calc 46.82 Est GFR (MDRD) Af Amer 114 Est GFR (MDRD) Non-Af 94 BUN/Creatinine Ratio 18.7 Glucose 133 H Lactic Acid 0.9 Calcium 9.5 Troponin I High Sens 10 B-Natriuretic Peptide 131.0 H ABG Data ABG results: ABG 08/23/24 20:03 Specimen Type TAHIR Sample Site Not entered VBG pH 7.43 H VBG pO2 33 VBG HCO3 31 H VBG Total CO2 33 VBG O2 Sat (Calc) 64 VBG Base Excess 7 H POC Mix VBG pCO2 Pt Tmp 47.0 O2 Delivery Device Room Air Radiography Diagnostic Testing: Clinical Impression(s) from Imaging Studies Chest X-Ray 08/23/24 19:43 IMPRESSION: Patchy infiltrate right midlung field suspicious for pneumonia. Recommend short-term follow-up to complete resolution. Electronically Signed: Jonathon Hawk MD at 21:13 EDT , Discharge Plan Disposition Disposition: Acute Care Hospital [facility] Discharge Date/Time: 08/23/24 22:51
--- NOTE | 2024-08-23 19:25 | EKG12_ITS ---
Test Reason : DYSRHYTHMIA Blood Pressure : / mmHG Vent. Rate : 096 BPM Atrial Rate : 096 BPM P-R Int : 134 ms QRS Dur : 074 ms QT Int : 330 ms P-R-T Axes : 034 066 082 degrees QTc Int : 416 ms Normal sinus rhythm Nonspecific ST abnormality Abnormal ECG Confirmed by KOMAL TAMAYO, WILLI ([id number]), editor greeting card FABIANA POWELL ([id number]) on 08/26/2024 9:13:44 AM Referred By: Confirmed By:WILLI SAUCEDA MD
[2024-08-23] MEDS: Ipratropium/Albuterol Sulfate 3 ML AMPUL.NEB INHALATION (19:29)
[2024-08-23] MEDS: MethylPREDNISolone 125 MG/2 ML Vial IV (19:31)
--- NOTE | 2024-08-23 19:43 | RAD_ITS ---
INDICATION: SOB, COUGH EXAMINATION/TECHNIQUE: X-RAY - portable upright AP chest x-ray COMPARISON: 03/13/2024 FINDINGS: LINES/DEVICES: None. LUNGS: Patchy airspace opacities right midlung field. No consolidation, vascular congestion or pleural effusion. MEDIASTINUM AND CARDIOVASCULAR STRUCTURES: Cardiac silhouette stable within normal limits. BONES AND SOFT TISSUES: No acute changes. RAD/Chest 1 View (Portable) IMPRESSION: Patchy infiltrate right midlung field suspicious for pneumonia. Recommend short-term follow-up to complete resolution. Electronically Signed: Jonathon Hawk MD at 21:13 EDT ,
[2024-08-23 19:56] LABS: Absolute Lymphocyte Count 1.87 X10^3/uL (0.83-4.51); Absolute Neutrophil Count 11.9 X10^3/uL (2.0-7.7); Basophil# 0.05 X10^3/uL; Basophil% 0.3 % (0-1); Eosinophil# 0.02 X10^3/uL; Eosinophils% 0.1 % (0-5); Hematocrit 42.8 % (37-47); Hemoglobin 13.4 g/dL (12.0-15.0); Lymphocyte # 1.87 X10^3/ul (0.83-4.51); Lymphocyte % 11.9 % (19-41); Mean Corp Hgb Conc 31.3 g/dL (32-36); Mean Corpuscular Hgb 31.7 pg (27.0-32.0); Mean Corpuscular Volume 101.2 fL (81-99); Mean Platelet Vol. 9.4 fl (6.2-12.0); Monocyte# 1.83 X10^3/uL; Monocyte% 11.6 % (0-10); NRBC Flagged by Analyzer 0 % (0-5); Neutrophil # 11.88 X10^3/uL (2.7-7.7); Neutrophil % 75.7 % (47-70); POSITIVE DIFFERENTIAL YES; Platelet Count 210 K/mm3 (150-450); RBC Distribution Width CV 11.9 % (11.6-14.6); RBC Distribution Width SD 44.7 fl (35.1-43.9); Red Blood Count 4.23 M/mm3 (4.2-5.4); White Blood Count 15.7 K/mm3 (4.4-11.0)
[2024-08-23 19:57] LABS: Differential Indicated SCAN CRITERIA MET
[2024-08-23 20:07] LABS: Blood Gas Specimen Type VEN; O2 Delivery Device Room Air; SITE Not entered; VBG BASE EXCESS 7 mmol/L (-1.0-3.5); VBG Bicarbonate 31 mmol/L (22-26); VBG PO2 33 mmHg (25-40); VBG SO2 64 % (50-70); VBG TCO2 33 mmol/L (23-33); VBG pH 7.43 (7.32-7.42)
[2024-08-23 20:09] LABS: Lactic Acid 0.9 mmol/L (0.4-1.9)
[2024-08-23 20:15] LABS: Anion Gap 6 (5-15); BUN 12 mg/dL (7-18); BUN/Creat Ratio 18.7 RATIO (10-20); Calcium,Total 9.5 mg/dL (8.5-10.1); Chloride 102 mmol/L (98-107); Creatinine, Serum 0.64 mg/dL (0.55-1.02); EST Glomerular Filtration Rate 94 mL/min (>60); Est Glom Filt Rate - Afr Amer 114 mL/min (>60); Estimated Creatinine Clearance 46.82 ml/min; Glucose 133 mg/dL (74-106); Sodium Level 137 mmol/L (136-145); Troponin-I HS 10 pg/mL (3.0-54.0)
[2024-08-23 20:20] LABS: Anisocytosis 1+; Macrocytosis 1+; Ovalocyte RARE; Platelet Estimate ADEQUATE (ADEQ); Red Cell Morphology N CHROM NORMAL (NORM C&C)
[2024-08-23] MEDS: Ceftriaxone 1 GM/50 ML BAG IV (21:34)
[2024-08-23] MEDS: Azithromycin 500 MG in Dextrose 5%-Water (250mL Bag) 250 ML 250 MG IV (22:28)
--- NOTE | 2024-08-23 22:33 | HP.PCM.HOS_ITS ---
HPI - General General Date of Admission: 08/23/24 Date of Service: 08/23/24 Chief Complaint: Dyspnea, cough. HPI Narrative The patient is an 84 y/o F w/ PMHx: Hx SBO s/p bowel resection, Chronic anemia/Fe deficiency anemia, GERD, HTN, HLD, Anxiety and Depression, Alzheimer's dementia with chart previous documented mild cognitive impairment with unclear behavioral disturbance history, COPD w/ Chronic Hypoxic Respiratory Failure (4L NC q HS only), Former tobacco use, Chronic pancreatic insufficiency, Chronic essential tremors, Chronic diarrhea, Allergic rhinitis who presents to the [facility] ED on 08/23/24 with history of increased fatigue, malaise, mild headache as well as dyspnea worse with exertion with increased respiratory rate with worsened and essential tremor above her baseline with several increased loose stools above her chronic baseline as well as a wet cough but no fevers or chills prompting ED evaluation to be cautious. In the ED upon initial ED physician evaluation patient was noted to be 86% on room air at rest with a good waveform. Workup in the ED included T98.5, heart rate 103, BP 140/92, respiratory rate 22, 91% however as noted desaturated down to 86% on room air at rest, most recent repeat vital signs T98.6, heart rate 93, BP 162/77, respiratory rate 28, 96% on 2 L nasal cannula, CBC with WBC 15.7, hemoglobin 13.4, platelet 210 with left shift, VBG with pH 7.43 otherwise not marked appearing, BMP with glucose 133, lactic acid 0.9, troponin 10, BNP 131, rapid SARS COVID/influenza/RSV negative, chest x-ray p with questionable patchy infiltrate right midlung, EKG with sinus rhythm with no acute evidence of ischemia. In the ED patient ministered DuoNeb therapy, azithromycin 5 mg IV x 1, Rocephin 1 g IV x 1 and Solu-Medrol 125 mg IV x 1. [facility] Medical History (Updated 08/23/24 @ 23:[address] Valerie Freitas MD) Chronic hypoxic respiratory failure, on home oxygen therapy GERD (gastroesophageal reflux disease) Alzheimer dementia Essential tremor History of GI bleed Chronic anemia Anxiety and depression Chronic diarrhea Exocrine pancreatic insufficiency Former smoker Closed fracture of single pubic ramus of pelvis COPD (chronic obstructive pulmonary disease) Hyperlipemia Osteoarthritis HTN (hypertension) Home Medications ?Medication ?Instructions ?Recorded ?Last Taken ?Type alendronate 70 mg tablet 70 mg PO QWEEK supplement 01/12/24 08/17/24 History atorvastatin 20 mg tablet 20 mg PO QHS hld 01/12/24 01/16/24 History calcium 500 mg (as 1 tab PO BID calcuim 01/12/24 01/17/24 History carbonate)-vitamin D3 15 mcg (600 unit) tablet donepezil 10 mg tablet 10 mg PO QHS dementia 01/12/24 01/16/24 History loratadine 10 mg tablet (Loradamed) 10 mg PO DAILY congestion 01/12/24 01/17/24 History montelukast 10 mg tablet 10 mg PO DAILY asthma 01/12/24 01/17/24 History primidone 50 mg tablet 50 mg PO DAILY tremors 01/12/24 01/17/24 History propranolol 80 mg capsule,24 80 mg PO BID htn 01/12/24 01/17/24 History hr,extended release venlafaxine 150 mg 150 mg PO DAILY depression 01/12/24 01/17/24 History capsule,extended release 24 hr pantoprazole 40 mg tablet,delayed 40 mg PO BID reflux #60 tabs 01/17/24 Unknown Rx release acetaminophen 500 mg tablet 1,000 mg (2 x 500 mg) PO Q8 #0 tabs 01/29/24 Unknown Rx acidophilus 25 million 1 tab PO BID #0 tabs 01/29/24 Unknown Rx cell-pectin, citrus 100 mg tablet ascorbic acid (vitamin C) 500 mg 500 mg PO BIDCM #0 tabs 01/29/24 Unknown Rx tablet clonidine HCl 0.1 mg tablet 0.1 mg PO TID #0 tabs 01/29/24 Unknown Rx losartan 100 mg tablet 100 mg PO DAILY #0 tabs 01/29/24 Unknown Rx melatonin 10 mg sublingual tablet 10 mg PO QHS #0 tabs 01/29/24 Unknown Rx oxybutynin chloride 5 mg tablet 10 mg (2 x 5 mg) PO QHS #0 tabs 01/29/24 Unknown Rx polysaccharide iron complex 150 mg 150 mg PO BID #0 caps 01/29/24 Unknown Rx iron capsule (Ferrex) budesonide 3 mg 6 mg (2 x 3 mg) PO DAILY #60 ea 03/31/24 Unknown Rx capsule,delayed,extended release cholestyramine-aspartame 4 gram 4 g PO DAILY #30 ea 03/31/24 Unknown Rx oral powder for susp in a packet aspirin 81 mg tablet,delayed 81 mg PO DAILY 04/07/24 Unknown History release (Adult Low Dose Aspirin) qbllry-zaoowblr-gezshec 1 cap PO TID #90 caps 04/07/24 Unknown Rx 36,000-114,000-180,000 unit capsule,delay rel (Creon) diphenoxylate-atropine 2.5 2 tab PO BID PRN diarrhea #120 tabs 07/10/24 Unknown Rx mg-0.025 mg tablet (Lomotil) potassium chloride 20 mEq/15 mL 40 meq PO BID 08/23/24 Unknown History oral liquid vibegron 75 mg tablet (Gemtesa) 75 mg PO DAILY 08/23/24 Unknown History Allergy/AdvReac Type Severity Reaction Status Date / Time Penicillins Allergy Unknown NEEDS Verified 08/23/24 18:56 FOLLOW-UP Family History (Updated 08/23/24 @ 23:[address] Valerie Freitas MD) Mother Cancer Father Cancer Hypertension Surgical History (Updated 08/23/24 @ 23:[address] Valerie Freitas MD) Status post wrist surgery History of hip surgery History of hysterectomy History of bowel resection Social History (Updated 08/23/24 @ 23:[address] Valerie Freitas MD) household members: none housing: assisted living facility Smoking Status: Former smoker how long ago did patient quit smoking: Quit ~ 15 years ago, < 1/2 ppd per family. alcohol intake: never substance use type: does not use ROS ROS Narrative Admission Review of Systems: CONSTITUTIONAL: No weight loss, fever, chills, + weakness or fatigue. HEENT: Eyes: No visual loss, blurred vision, double vision or yellow sclerae. Ears, Nose, Throat: No hearing loss, sneezing, congestion, runny nose or sore throat. SKIN: No rash or itching, lesions, wounds. CARDIOVASCULAR: No chest pain, chest pressure or chest discomfort, palpitations, edema, orthopnea, syncopal events. RESPIRATORY: + Dyspnea, wheezing, occasional moist cough. No hemoptysis. GASTROINTESTINAL: + Acute on chronic diarrhea. No anorexia, nausea, vomiting, abdominal pain, melena, BRBPR. GENITOURINARY: No dysuria, frequency, urgency or retention. NEUROLOGICAL: + Worsened essential tremor, underlying dementia with unclear baseline cognitive status. No headache, dizziness, syncope, paralysis, ataxia, numbness or tingling in the extremities, focal weakness, change in bowel or bladder control, seizure. MUSCULOSKELETAL: + muscle, back pain, joint pain or stiffness. HEMATOLOGIC: + Chronic anemia. Bleeding or bruising. LYMPHATICS: No enlarged nodes. No history of splenectomy. PSYCHIATRIC: + History of anxiety and depression. ENDOCRINOLOGIC: No reports of sweating, cold or heat intolerance. No polyuria or polydipsia. ALLERGIES: + History of allergic rhinitis. Vital Signs Vital Signs Vital Signs: 08/23/24 18:57 08/23/24 19:19 08/23/24 19:25 Temperature 98.5 F Temperature Source Oral Pulse Rate 103 H Respiratory Rate 22 H Respiratory Effort Short of Breath Respiratory Depth Shallow Respiratory Pattern Tachypnea Blood Pressure 140/92 H Blood Pressure Mean 108 Pulse Ox 91 96 Oxygen Delivery Method Room Air Room Air Nasal Cannula Oxygen Flow Rate (L/min) 2 08/23/24 19:29 08/23/24 20:00 08/23/24 21:42 Temperature 98.6 F Temperature Source Oral Pulse Rate 100 93 89 Respiratory Rate 28 H 38 H 29 H Respiratory Effort Respiratory Depth Respiratory Pattern Tachypnea Blood Pressure 162/77 H 157/82 H Blood Pressure Mean 105 107 Pulse Ox 90 95 Oxygen Delivery Method Nasal Cannula Oxygen Flow Rate (L/min) 2 08/23/24 22:09 Temperature Temperature Source Pulse Rate Respiratory Rate Respiratory Effort Short of Breath Respiratory Depth Shallow Respiratory Pattern Tachypnea Blood Pressure Blood Pressure Mean Pulse Ox Oxygen Delivery Method Nasal Cannula Oxygen Flow Rate (L/min) 2 Weight Weight: 130 lb 15.273 oz Body Mass Index (BMI) 22.4 Physical Exam Narrative Physical Examination: General: Awake, alert, oriented to self and place, cannot given correct year, month or president which is baseline per family, remains cooperative, seated upright in the ED bed in no apparent distress, fatigued. Skin: Normal color, normal turgor, no icterus, no cyanosis. HEENT: AT/NC, EOMI, PERRLA, mildly dry MM, no carotid bruits or JVD noted. Lungs: Diminished, greater bases, mildly increased respiratory rate but no distress, occasional end expiratory wheeze, no rales or rhonchi. Heart: Regular rate and rhythm; no gallop, rub audible. Abdomen: Soft, NTTP, ND, hyperactive BS, no appreciated HSM. Extremities: No cyanosis, clubbing, or edema. Neurological: Patient awake, alert, oriented as noted, cognitive function decreased baseline with underlying cognitive mild impairment with Alzheimer's dementia however seems baseline intact, pupils equally reactive to light and accommodation, cranial nerves gross normal, moving all 4 extremities, no focal deficits, strength moderately to severely globally decreased. Psychiatric: Affect appears flat, fatigued, no acute evidence of depressive or anxiety feeling but does have underlying history. Results Lab / Micro Data 08/23/24 19:35 08/23/24 19:35 Labs: Laboratory Results - last 24 hr 08/23/24 19:35: WBC 15.7 H, RBC 4.23, Hgb 13.4, Hct 42.8, MCV 101.2 H, MCH 31.7, MCHC 31.3 L, RDW Std Deviation 44.7 H, RDW Coeff of Laura 11.9, Plt Count 210, MPV 9.4, Immature Gran % (Auto) 0.400, Neut % (Auto) 75.7 H, Lymph % (Auto) 11.9 L, [place] % (Auto) 11.6 H, Eos % (Auto) 0.1, Baso % (Auto) 0.3, Absolute Neuts (auto) 11.9 H, Absolute Lymphs (auto) 1.87, Nucleated RBC % 0, Differential Comment SEE COMMENT, Diff Path Review May foll, Platelet Estimate ADEQUATE, RBC Morphology N CHROM, Anisocytosis 1+, Macrocytosis 1+, Ovalocytes RARE, Sodium 137, Potassium 4.0, Chloride 102, Carbon Dioxide 29.0, Anion Gap 6, BUN 12, Creatinine 0.64, Estim Creat Clear Calc 46.82, Est GFR (MDRD) Af Amer 114, Est GFR (MDRD) Non-Af 94, BUN/Creatinine Ratio 18.7, Glucose 133 H, Lactic Acid 0.9, Calcium 9.5, Troponin I High Sens 10, B-Natriuretic Peptide 131.0 H Micro: Microbiology 08/23/24 19:45 Mucosa - Nose SARS-CoV-2, Influenza & RSV (PCR) - Final ABG Data ABG results: ABG 08/23/24 20:03 Specimen Type TAHIR Sample Site Not entered VBG pH 7.43 H VBG pO2 33 VBG HCO3 31 H VBG Total CO2 33 VBG O2 Sat (Calc) 64 VBG Base Excess 7 H POC Mix VBG pCO2 Pt Tmp 47.0 O2 Delivery Device Room Air Imaging Radiology Impression Chest X-Ray 08/23/24 19:43 IMPRESSION: Patchy infiltrate right midlung field suspicious for pneumonia. Recommend short-term follow-up to complete resolution. Electronically Signed: Jonathon Hawk MD at 21:13 EDT , Assessment & Plan Assessment/Plan (1) COPD exacerbation: (2) Hypoxia: PLAN: Plan The patient is an 84 y/o F w/ PMHx: Hx SBO s/p bowel resection, Chronic anemia/Fe deficiency anemia, GERD, HTN, HLD, Anxiety and Depression, Alzheimer's dementia with chart previous documented mild cognitive impairment with unclear behavioral disturbance history, COPD w/ Chronic Hypoxic Respiratory Failure (4L NC q HS only), Former tobacco use, Chronic pancreatic insufficiency, Chronic essential tremors, Chronic diarrhea, Allergic rhinitis who presents to the [facility] ED on 08/23/24 with history of increased fatigue, malaise, mild headache as well as dyspnea worse with exertion with increased respiratory rate with worsened and essential tremor above her baseline with several increased loose stools above her chronic baseline as well as a wet cough but no fevers or chills prompting ED evaluation to be cautious. #1. Acute Hypoxia on Chronic (qHS 4L NC only) secondary to Acute on Chronic COPD exacerbation secondary to possible R sided PNA: Will admit to [facility], maintain on oxygen with wean as tolerated to room air, continue ATC duonebs, PRN albuterol, IV methylprednisolone, HOB, IS parameters, will obtain sputum Cx, full respiratory viral panel, procalcitonin, maintain on IV rocephin and IV azithromycin. #2. Acute on chronic diarrhea with concurrent underlying pancreatic insufficiency complicated by previous bowel resection: Following with gastroenterology, most recent visit noted 08/01/24 on cholestyramine, Lomotil and Creon, previously on scheduled Lomotil transition back to as needed given some recent issues with constipation per most recent note reported with plan follow- up in 6 months. Given worsening reported diarrhea certainly could be related to an acute viral illness but to be cautious we will obtain C. difficile and enteric pathogen. #3. Acute on chronic essential tremor: Likely worsened by acute illness, will continue patient home primidone regimen, may consider increasing if necessary as currently this is only used once daily. #4. Allergic rhinitis: We will continue patient home montelukast regimen. #5. Anxiety and depression: We will continue patient home venlafaxine regimen, encourage continued outpatient follow-up with counseling as needed. #6. Alzheimer's dementia with chart previous documented mild cognitive impairment with unclear behavioral disturbance history: Complicates presentation, maintain on fall and aspiration precautions, continue patient home donepezil regimen, PT/OT/case management consulted for discharge planning. #7. Chronic anemia, currently MCV consistent with macrocytic appearance/iron deficiency anemia: Admission hemoglobin 13.4, MCV 101.2, baseline hemoglobin more recently 12-14 but previous to this had been primarily 9-10 but this was in the more acute phase with GI bleed history it seems, continue to trend CBC, continue iron supplementation. #8. Hypertension: Continue home regimen including losartan, propranolol, clonidine, PRN hydralazine. #9. Former tobacco use: Encourage continued tobacco cessation. #10. Hyperlipidemia: We will continue patient on statin therapy. #11. GERD w/ Hx prior GI bleed: Will continue patient on PPI. #12. DVT prophylaxis: Lovenox. #13. CODE status: Patient HCPOA are her two daughters. Discussed CODE status at length including difference between FULL code, DNR-CCA and DNR-CC status. Following discussions about the differences in these status, requested DNR-CCA, no intubation status. Advanced Care Planning Face to Face Time: 16 minutes. Charges/Coding Visit Charges Inpatient E&M: 75261 Init Hosp L3 Procedures Hospitalists Procedures: 46909 Advncd Care Plan 30 Min
--- NOTE | 2024-08-23 22:44 | ED.RN ---
2243: [place] nurseErlinda, updated on patient admission at this time.
[2024-08-23 23:23] LABS: Procalcitonin 0.15 ng/mL (0.00-0.09)
[2024-08-24] VITALS (11 sets, daily range): BP systolic 142–158; BP diastolic 69–92; PULSE 75–93; RESP 16–22; TEMP 36.4–36.7; O2SAT 95–99; BMI 21.7
[2024-08-24] MEDS: 0.9% Normal Saline (1000mL) 1,000 ML 100 ML IV (00:05)
[2024-08-24 06:10] LABS: Absolute Lymphocyte Count 1.11 X10^3/uL (0.83-4.51); Absolute Neutrophil Count 9.6 X10^3/uL (2.0-7.7); Basophil# 0.02 X10^3/uL; Basophil% 0.2 % (0-1); Hematocrit 38.6 % (37-47); Hemoglobin 12.2 g/dL (12.0-15.0); Lymphocyte # 1.11 X10^3/ul (0.83-4.51); Lymphocyte % 10.2 % (19-41); Mean Corp Hgb Conc 31.6 g/dL (32-36); Mean Corpuscular Hgb 31.9 pg (27.0-32.0); Mean Platelet Vol. 9.5 fl (6.2-12.0); Monocyte# 0.12 X10^3/uL; Monocyte% 1.1 % (0-10); NRBC Flagged by Analyzer 0 % (0-5); Neutrophil # 9.58 X10^3/uL (2.7-7.7); Neutrophil % 88.3 % (47-70); Platelet Count 186 K/mm3 (150-450); RBC Distribution Width CV 11.9 % (11.6-14.6); Red Blood Count 3.82 M/mm3 (4.2-5.4); White Blood Count 10.9 K/mm3 (4.4-11.0)
[2024-08-24 06:29] LABS: ALB/GLOB Ratio 0.7 RATIO (0.9-2.4); AST(SGOT) 7 U/L (15-37); Alanine Aminotransfer ALT/SGPT 14 U/L (13-56); Albumin, Serum 2.7 g/dL (3.2-5.0); Alkaline Phosphatase 75 U/L (45-117); Anion Gap 5 (5-15); BUN 13 mg/dL (7-18); BUN/Creat Ratio 19.3 RATIO (10-20); Calcium,Total 9.5 mg/dL (8.5-10.1); Chloride 105 mmol/L (98-107); Creatinine, Serum 0.67 mg/dL (0.55-1.02); EST Glomerular Filtration Rate 89 mL/min (>60); Est Glom Filt Rate - Afr Amer 108 mL/min (>60); Estimated Creatinine Clearance 46.82 ml/min; Globulin 3.8 g/dL (2.2-4.2); Glucose 152 mg/dL (74-106); Potassium 3.9 mmol/L (3.5-5.1); Protein, Total 6.5 g/dL (6.4-8.2); Sodium Level 136 mmol/L (136-145)
[2024-08-24] MEDS: cloNIDine HCl 0.1 MG Tablet PO ×3 (06:33→20:42)
--- NOTE | 2024-08-24 07:15 | PCM.PN.HOSP ---
Reason for Visit Reason for Visit: Diagnoses Chronic obstructive pulmonary disease with (acute) exacerbation (08/23/24) Hypoxemia (08/23/24) Subjective Subjective Patient is an 84-year-old lady who presented with shortness of breath chest x-ray obtained on admission demonstrated patchy infiltrates right midlung suspicious for pneumonia. Admitted to regular nursing floor for further management Objective Data Objective Data Vital Signs: Vital Signs Temp Pulse Resp BP Pulse Ox O2 Del Method O2 Flow Rate 97.8 F 76 20 H 153/80 H 99 Nasal Cannula 2 08/24/24 06:57 08/24/24 06:57 08/24/24 06:57 08/24/24 06:57 08/24/24 06:57 08/24/24 06:57 08/24/24 06:57 Oxygen Flow Rate (L/min) 2 Oxygen Delivery Method Nasal Cannula Weight: 57.8 kg Body Mass Index (BMI) 21.7 Intake & Output: Intake and Output for Last 24 Hours 08/22/24 08/23/24 08/24/24 23:59 23:59 23:59 Intake Total 50 / 50 255 / 255 Balance 50 / 50 255 / 255 Lab / Micro Data 08/24/24 05:40 08/24/24 05:40 Labs: Laboratory Results - last 24 hr 08/23/24 19:35: WBC 15.7 H, RBC 4.23, Hgb 13.4, Hct 42.8, MCV 101.2 H, MCH 31.7, MCHC 31.3 L, RDW Std Deviation 44.7 H, RDW Coeff of Laura 11.9, Plt Count 210, MPV 9.4, Immature Gran % (Auto) 0.400, Neut % (Auto) 75.7 H, Lymph % (Auto) 11.9 L, [place] % (Auto) 11.6 H, Eos % (Auto) 0.1, Baso % (Auto) 0.3, Absolute Neuts (auto) 11.9 H, Absolute Lymphs (auto) 1.87, Nucleated RBC % 0, Differential Comment SEE COMMENT, Diff Path Review May foll, Platelet Estimate ADEQUATE, RBC Morphology N CHROM, Anisocytosis 1+, Macrocytosis 1+, Ovalocytes RARE, Sodium 137, Potassium 4.0, Chloride 102, Carbon Dioxide 29.0, Anion Gap 6, BUN 12, Creatinine 0.64, Estim Creat Clear Calc 46.82, Est GFR (MDRD) Af Amer 114, Est GFR (MDRD) Non-Af 94, BUN/Creatinine Ratio 18.7, Glucose 133 H, Lactic Acid 0.9, Calcium 9.5, Troponin I High Sens 10, B-Natriuretic Peptide 131.0 H 08/23/24 22:54: Procalcitonin 0.15 H 08/24/24 05:40: WBC 10.9, RBC 3.82 L, Hgb 12.2, Hct 38.6, MCV 101.0 H, MCH 31.9, MCHC 31.6 L, RDW Std Deviation 44.0 H, RDW Coeff of Laura 11.9, Plt Count 186, MPV 9.5, Immature Gran % (Auto) 0.200, Neut % (Auto) 88.3 H, Lymph % (Auto) 10.2 L, [place] % (Auto) 1.1, Eos % (Auto) 0.0, Baso % (Auto) 0.2, Absolute Neuts (auto) 9.6 H, Absolute Lymphs (auto) 1.11, Nucleated RBC % 0, Sodium 136, Potassium 3.9, Chloride 105, Carbon Dioxide 27.0, Anion Gap 5, BUN 13, Creatinine 0.67, Estim Creat Clear Calc 46.82, Est GFR (MDRD) Af Amer 108, Est GFR (MDRD) Non-Af 89, BUN/Creatinine Ratio 19.3, Glucose 152 H, Calcium 9.5, Total Bilirubin 0.30, AST 7 L, ALT 14, Alkaline Phosphatase 75, Total Protein 6.5, Albumin 2.7 L, Globulin 3.8, Albumin/Globulin Ratio 0.7 L Micro: Microbiology 08/24/24 00:02 Mucosa - Nasopharyngeal Respiratory Panel (PCR) - Final 08/23/24 19:45 Mucosa - Nose SARS-CoV-2, Influenza & RSV (PCR) - Final ABG Data ABG results: ABG 08/23/24 20:03 Specimen Type TAHIR Sample Site Not entered VBG pH 7.43 H VBG pO2 33 VBG HCO3 31 H VBG Total CO2 33 VBG O2 Sat (Calc) 64 VBG Base Excess 7 H POC Mix VBG pCO2 Pt Tmp 47.0 O2 Delivery Device Room Air Radiography Diagnostic Testing: Radiology Impression Chest X-Ray 08/23/24 19:43 IMPRESSION: Patchy infiltrate right midlung field suspicious for pneumonia. Recommend short-term follow-up to complete resolution. Electronically Signed: Jonathon Hawk MD at 21:13 EDT , Physical Exam Narrative GENERAL: cooperative, in no apparent distress HEENT: Atraumatic; normocephalic EYES; Anicteric, Normal Conjunctiva NECK; supple, normal thyroid, RESPIRATORY: Diminished to auscultation CARDIOVASCULAR: Regular S1 S2, GI: soft, normoactive bowel sounds, : No Renal angle tenderness; EXTREMITIES: No edema, no clubbing, MUSCULOSKELETAL: no muscle wasting NEURO: Awake; no lateralizing signs. SKIN: No Rash PSYCH; Flat affect Assessment & Plan Assessment/Plan (1) COPD exacerbation: (2) Hypoxia: PLAN: Plan Patient is an 84-year-old lady who presented with shortness of breath chest x-ray obtained on admission demonstrated patchy infiltrates right midlung suspicious for pneumonia. Admitted to regular nursing floor for further management 1. Acute hypoxia superimposed on chronic respiratory failure ? Secondary to combination of factors including COPD with acute exacerbation as well as pneumonia 2. Pneumonia - Suspected to be secondary to streptococcal pneumonia, Blood and sputum cultures sent. Patient placed on Rocephin and Zithromax and placed on oxygen titrated to keep Pulse Ox greater than 90 3. COPD with acute exacerbation ? Patient started on bronchodilator treatment, systemic steroid as well as antibiotic therapy. Patient placed on oxygen titrated to keep saturation greater than 90. 4. Chronic diarrhea ? Secondary to pancreatic insufficiency patient is on cholestyramine, Lomotil as well as Creon with continued 5. Dyslipidemia ?Patient is on statin therapy, continued at home dose 6. Hypertension ? Blood pressure controlled, home medications continued with dose adjustment as needed 7. Anemia ? Secondary to chronic disorder monitoring H&H and transfuse if patient becomes symptomatic or hemoglobin falls below 7 8. Dementia ? Supportive care patient is on donepezil did continue 9. Dyslipidemia ?Patient is on statin therapy, continued at home dose 10. Depression with anxiety ? Patient is on SSRI did continue 11. DVT prophylaxis ? On enoxaparin Time spent in the patient's overall evaluation,decision-making process, review of diagnostic data, adjustment of management, discussion with other providers, nursing nursing and ancillary staff involved in patient's care documentation, 38 minutes Charges/Coding Visit Charges Inpatient E&M: 08574 Subs Hosp L2
[2024-08-24] MEDS: Ipratropium/Albuterol Sulfate 3 ML AMPUL.NEB INHALATION ×4 (07:26→19:19)
[2024-08-24] MEDS: Vibegron 75 MG TABLET PO (10:27)
[2024-08-24] MEDS: Loratadine 10 MG Tablet PO (10:27)
[2024-08-24] MEDS: Creon 12,000 unit DR CapSULE 3 CAP PO ×3 (10:27→17:27)
[2024-08-24] MEDS: Lactobacillis Acidophilus 1 CAP PO ×2 (10:27→20:42)
[2024-08-24] MEDS: Budesonide 3 MG CAPSULE.EC 6 MG PO (10:27)
[2024-08-24] MEDS: Aspirin E.C. 81 MG Tablet PO (10:27)
[2024-08-24] MEDS: Propranolol LA 80 MG Capsule PO ×2 (10:27→21:39)
[2024-08-24] MEDS: Venlafaxine XR 150 MG Capsule PO (10:27)
[2024-08-24] MEDS: Enoxaparin 40 MG/0.4 ML Syringe SC (10:27)
[2024-08-24] MEDS: Cholestyramine/Sucrose 4 GM/PACKET PO (10:27)
[2024-08-24] MEDS: Pantoprazole Sodium 40 MG Tablet PO ×2 (10:28→20:42)
[2024-08-24] MEDS: Montelukast 10 MG Tablet PO (10:28)
[2024-08-24] MEDS: Iron Polysaccharide Complex 150 MG CAPSULE PO ×2 (10:28→20:42)
[2024-08-24] MEDS: Menthol/Lanolin/Calamine/Znox 113 GM Tube 1 APPLIC TOPICAL ×3 (10:28→20:40)
[2024-08-24] MEDS: Losartan Potassium 100 MG Tablet PO (10:28)
[2024-08-24] MEDS: Primidone 50 MG Tablet PO (10:28)
[2024-08-24] MEDS: Potassium Chloride Oral Soln 20 MEQ/15 ML UDC 40 MEQ PO ×2 (10:28→21:39)
[2024-08-24] MEDS: Ensure Plus High Protein 120 ML LIQUID PO (12:39)
[2024-08-24] MEDS: 0.9% Saline Lock 10 ML Syringe IV ×2 (15:16→20:41)
[2024-08-24] MEDS: Atorvastatin Calcium 20 MG Tablet PO (20:42)
[2024-08-24] MEDS: MELATONIN 10 MG TABLET PO (20:42)
[2024-08-24] MEDS: Donepezil HCl 10 MG Tablet PO (20:42)
[2024-08-24] MEDS: Acetaminophen 325 MG Tablet 650 MG PO (20:43)
[2024-08-24] MEDS: Ceftriaxone 1 GM/50 ML BAG IV (21:06)
[2024-08-24] MEDS: Azithromycin 500 MG in Dextrose 5%-Water (250mL Bag) 250 ML 250 MG IV (21:39)
[2024-08-24] MEDS: Ensure Clear 120 ML Liquid PO (23:10)
[2024-08-25] VITALS (8 sets, daily range): BP systolic 151–168; BP diastolic 74–95; PULSE 71–88; RESP 16–18; TEMP 36.3–37.1; O2SAT 93–96; BMI 22.0
[2024-08-25] MEDS: cloNIDine HCl 0.1 MG Tablet PO ×3 (04:49→22:40)
[2024-08-25] MEDS: Acetaminophen 325 MG Tablet 650 MG PO (04:49)
[2024-08-25] MEDS: Ipratropium/Albuterol Sulfate 3 ML AMPUL.NEB INHALATION ×4 (07:34→19:55)
[2024-08-25] MEDS: Ensure Clear 120 ML Liquid PO ×4 (09:53→22:41)
[2024-08-25] MEDS: Enoxaparin 40 MG/0.4 ML Syringe SC (09:53)
[2024-08-25] MEDS: Cholestyramine/Sucrose 4 GM/PACKET PO (09:53)
[2024-08-25] MEDS: Potassium Chloride Oral Soln 20 MEQ/15 ML UDC 40 MEQ PO ×2 (09:54→22:39)
[2024-08-25] MEDS: Creon 12,000 unit DR CapSULE 3 CAP PO ×3 (09:54→16:49)
[2024-08-25] MEDS: Budesonide 3 MG CAPSULE.EC 6 MG PO (09:55)
[2024-08-25] MEDS: Loratadine 10 MG Tablet PO (09:55)
[2024-08-25] MEDS: Losartan Potassium 100 MG Tablet PO (09:55)
[2024-08-25] MEDS: Pantoprazole Sodium 40 MG Tablet PO ×2 (09:55→22:39)
[2024-08-25] MEDS: Propranolol LA 80 MG Capsule PO ×2 (09:55→22:39)
[2024-08-25] MEDS: Vibegron 75 MG TABLET PO (09:55)
[2024-08-25] MEDS: Venlafaxine XR 150 MG Capsule PO (09:55)
[2024-08-25] MEDS: Lactobacillis Acidophilus 1 CAP PO ×2 (09:56→22:39)
[2024-08-25] MEDS: Montelukast 10 MG Tablet PO (09:56)
[2024-08-25] MEDS: Aspirin E.C. 81 MG Tablet PO (09:56)
[2024-08-25] MEDS: FLU VACCINE **HIGH DOSE** TV 24-25 180 MCG/0.5 ML SYRINGE IM (09:56)
[2024-08-25] MEDS: Iron Polysaccharide Complex 150 MG CAPSULE PO ×2 (09:56→22:40)
[2024-08-25] MEDS: Menthol/Lanolin/Calamine/Znox 113 GM Tube 1 APPLIC TOPICAL ×2 (09:59→23:03)
[2024-08-25] MEDS: Primidone 50 MG Tablet PO (10:45)
--- NOTE | 2024-08-25 11:12 | CASEMGMT ---
Social Work Confirmed with daughter that patient is to return to the [facility] upon discharge. Kaylynn Valle, TELEPHONE CLERKS SUPERVISOR, LAUNDRY ROOM ATTENDANT
--- NOTE | 2024-08-25 11:24 | CASEMGMT ---
Addendum entered by Kaylynn Vlale 08/25/24 13:26: No precert needed for readmission. RORY Gallego, BRAND DESIGNER Original Note: Social Work Updates sent to the [facility]. Asked is precert is required for readmission. RORY Gallego, BRAND DESIGNER
[2024-08-25 14:03] LABS: Pathologist Review Reviewed
--- NOTE | 2024-08-25 18:24 | PCM.PN.HOSP ---
Reason for Visit Reason for Visit: Diagnoses Chronic obstructive pulmonary disease with (acute) exacerbation (08/23/24) Hypoxemia (08/23/24) Subjective Subjective Breathing improving, not significantly coughing, no new or acute complaints Objective Data Objective Data Vital Signs: Vital Signs Temp Pulse Resp BP Pulse Ox O2 Del Method O2 Flow Rate 98.2 F 88 18 163/85 H 94 Room Air 2 08/25/24 14:30 08/25/24 15:35 08/25/24 15:35 08/25/24 14:30 08/25/24 14:30 08/25/24 14:30 08/24/24 16:25 Oxygen Flow Rate (L/min) 2 Oxygen Delivery Method Room Air Weight: 58.6 kg Body Mass Index (BMI) 22.0 Intake & Output: Intake and Output for Last 24 Hours 08/23/24 08/24/24 08/25/24 23:59 23:59 23:59 Intake Total 50 / 50 1800 / 1800 Balance 50 / 50 1800 / 1800 Lab / Micro Data 08/24/24 05:40 08/24/24 05:40 Labs: Laboratory Results - last 24 hr 08/23/24 19:35: Diff Path Review Reviewed Micro: Microbiology 08/24/24 07:39 Sputum, Expectorated/Coughed Gram Stain - Final 08/24/24 07:39 Urine, Random Streptococcus pneumoniae Antigen (M - Final 08/24/24 07:39 Urine, Random Legionella Antigen - Final 08/24/24 00:02 Mucosa - Nasopharyngeal Respiratory Panel (PCR) - Final 08/23/24 19:45 Mucosa - Nose SARS-CoV-2, Influenza & RSV (PCR) - Final Physical Exam Narrative General: Alert, family member at bedside, no apparent distress HEENT: Atraumatic, normocephalic Eyes: Anicteric, normal conjunctiva, extraocular movements grossly intact Neck: Supple Respiratory: No wheezes or rhonchi, normal respiratory effort Cardiovascular: Regular rate GI: Soft, nontender, nondistended Extremities: No edema Musculoskeletal: Moving all extremities Neuro: No overt focal neurological deficits Skin: No rashes appreciated Psych: Cooperative Assessment & Plan Assessment/Plan (1) COPD exacerbation: (2) Hypoxia: PLAN: Plan # Acute hypoxia secondary to COPD exacerbation and community-acquired pneumonia superimposed on chronic respiratory failure on 4 L home O2 nightly -Patient hypoxic on presentation and found to have suspected infiltrate on chest x-ray on admission -Started on CAP coverage -IV steroids, nebs -Improving, de-escalate to oral prednisone, patient doing well tomorrow will likely be able to DC #Chronic diarrhea ? Secondary to pancreatic insufficiency patient is on cholestyramine, Lomotil as well as Creon with continued -08/25: Continue home medications, patient did not note any acute worsening #Hypertension ? Blood pressure controlled, home medications continued with dose adjustment as needed -08/25: Does still of some elevated blood pressures but is on clonidine 0.1 mg 3 times daily, losartan 100 mg, propranolol 80 twice daily. Previously on amlodipine and hydrochlorothiazide, unclear why patient is no longer on these. Will need close follow-up at discharge for further monitoring and adjustments #Dementia ? Supportive care patient is on donepezil did continue -08/25: Chronic. Patient resides at the [facility] chronically, likely DC back to [facility] tomorrow #Depression with anxiety ? Patient is on SSRI did continue -08/25: Continue Effexor #GERD -Continue PPI #DVT prophylaxis ? On enoxaparin Time spent in the patient's overall evaluation,decision-making process, review of diagnostic data, adjustment of management, discussion with other providers, nursing nursing and ancillary staff involved in patient's care documentation, 36 minutes Charges/Coding Visit Charges Inpatient E&M: 77592 Subs Hosp L2
[2024-08-25] MEDS: Donepezil HCl 10 MG Tablet PO (22:41)
[2024-08-25] MEDS: MELATONIN 10 MG TABLET PO (22:41)
[2024-08-25] MEDS: Atorvastatin Calcium 20 MG Tablet PO (22:41)
[2024-08-25] MEDS: Azithromycin 250 MG Tablet 500 MG PO (23:02)
[2024-08-25] MEDS: guaiFENesin 1,200 MG Tablet 1200 MG PO (23:02)
[2024-08-25] MEDS: cefuroxime axetiL 250 MG TABLET 500 MG PO (23:19)
[2024-08-26 03:31] VITALS: BMI 22.0
[2024-08-26] MEDS: cloNIDine HCl 0.1 MG Tablet PO (06:50)
[2024-08-26 06:51] VITALS: BP 164/99; PULSE 75; RESP 16; TEMP 36.2; O2SAT 96
[2024-08-26 07:18] LABS: Hematocrit 39.4 % (37-47); Hemoglobin 11.9 g/dL (12.0-15.0); Mean Corp Hgb Conc 30.2 g/dL (32-36); Mean Corpuscular Hgb 30.9 pg (27.0-32.0); Mean Corpuscular Volume 102.3 fL (81-99); Platelet Count 280 K/mm3 (150-450); RBC Distribution Width CV 11.9 % (11.6-14.6); RBC Distribution Width SD 44.8 fl (35.1-43.9); Red Blood Count 3.85 M/mm3 (4.2-5.4); White Blood Count 13.2 K/mm3 (4.4-11.0)
[2024-08-26] MEDS: Ipratropium/Albuterol Sulfate 3 ML AMPUL.NEB INHALATION ×3 (07:31→15:34)
[2024-08-26 07:32] VITALS: PULSE 80; RESP 18; O2SAT 95
[2024-08-26 07:35] LABS: Anion Gap 5 (5-15); BUN 17 mg/dL (7-18); BUN/Creat Ratio 24.4 RATIO (10-20); Calcium,Total 9.1 mg/dL (8.5-10.1); Chloride 110 mmol/L (98-107); EST Glomerular Filtration Rate 85 mL/min (>60); Est Glom Filt Rate - Afr Amer 103 mL/min (>60); Estimated Creatinine Clearance 46.82 ml/min; Glucose 98 mg/dL (74-106); Potassium 4.4 mmol/L (3.5-5.1); Sodium Level 143 mmol/L (136-145)
[2024-08-26] MEDS: cefuroxime axetiL 250 MG TABLET 500 MG PO (08:06)
[2024-08-26] MEDS: Creon 12,000 unit DR CapSULE 3 CAP PO ×2 (08:06→10:43)
[2024-08-26] MEDS: Primidone 50 MG Tablet PO (08:07)
[2024-08-26] MEDS: Aspirin E.C. 81 MG Tablet PO (08:07)
[2024-08-26] MEDS: Budesonide 3 MG CAPSULE.EC 6 MG PO (08:07)
[2024-08-26] MEDS: Montelukast 10 MG Tablet PO (08:07)
[2024-08-26] MEDS: Propranolol LA 80 MG Capsule PO (08:08)
[2024-08-26] MEDS: Pantoprazole Sodium 40 MG Tablet PO (08:08)
[2024-08-26] MEDS: Losartan Potassium 100 MG Tablet PO (08:08)
[2024-08-26] MEDS: Ensure Clear 120 ML Liquid PO (08:08)
[2024-08-26] MEDS: Loratadine 10 MG Tablet PO (08:08)
[2024-08-26] MEDS: Vibegron 75 MG TABLET PO (08:08)
[2024-08-26] MEDS: Venlafaxine XR 150 MG Capsule PO (08:08)
[2024-08-26] MEDS: Iron Polysaccharide Complex 150 MG CAPSULE PO (08:09)
[2024-08-26] MEDS: Enoxaparin 40 MG/0.4 ML Syringe SC (08:10)
[2024-08-26] MEDS: Potassium Chloride Oral Soln 20 MEQ/15 ML UDC 40 MEQ PO (08:10)
[2024-08-26] MEDS: Lactobacillis Acidophilus 1 CAP PO (08:10)
[2024-08-26] MEDS: guaiFENesin 1,200 MG Tablet 1200 MG PO (08:14)
[2024-08-26] MEDS: predniSONE 20 MG Tablet 60 MG PO (08:14)
--- NOTE | 2024-08-26 08:58 | PCM.TXEXTCAR ---
Diet Diet Order/Speech Therapy: 08/23/24 23:08 Diet: Cardiac - Heart Healthy Food consistency:: Regular Liquid Consistency:: Regular/Thin Dietary Modifications:: Lactose Controlled Diet Comments: dairy free diet Routine Orders/Code Status Suppository Type: Dulcolax 10mg Suppository Frequency: Daily PRN O2 Liters per Minute: 4 O2 Frequency: qhs Code Status: DNRCC-A Problem/Diagnosis (1) COPD exacerbation: Status: Chronic Code(s): J44.1 - Chronic obstructive pulmonary disease with (acute) exacerbation (2) Hypoxia: Status: Acute Code(s): R09.02 - Hypoxemia Plan # Acute hypoxia secondary to COPD exacerbation and community-acquired pneumonia superimposed on chronic respiratory failure on 4 L home O2 nightly #Chronic diarrhea #Hypertension #Dementia #Depression with anxiety #GERD 84-year-old female history of COPD on 4 L home O2 nightly, chronic diarrhea, hypertension, dementia, depression/anxiety, GERD who presented to [facility] ED 08/23/2024 with increased shortness of breath. She was hypoxic on presentation and had suspected infiltrate on chest x-ray. Was started on O2 and CAP coverage, also was suspected to have COPD exacerbation from her pneumonia and was on IV steroids and nebs. Patient tolerated all of this very well and improved significantly and was weaned off of O2 and only on her nightly O2. Tolerated switch to oral prednisone and oral antibiotics. Will be discharged on additional 5 days of antibiotics and prednisone burst. No new or acute complaints on day of discharge. Discussed with patient's daughter at bedside Allergies/Procedures Done in Hospital Allergies Penicillins Allergy (Unknown, Verified 08/23/24 18:56) NEEDS FOLLOW-UP lactose (lactose intolerant) Adverse Reaction (Mild, Verified 08/23/24 23:41) severe diarrhea all milk products Type of Care/Length of Stay Estimated LOS: More Than 30 Days Type of Care Needed: Intermediate Rehab Potential: Fair Prognosis: Fair Additional Orders/Day of Discharge Day of Discharge: 08/26/24 Dietary and Speech Recommendations Dietitian Recommendations/Changes: Continue Regular diet - lactose controlled Will order ensure plus high protein tid w/ medpass to help stabilize wt and per pt daughters request Discharge Plan Admission Admit Date/Time: 08/23/24 22:34 Primary Reason for Your Visit: Shortness of breath Attending Provider: Amanda Jeter Primary Care Provider: Edouard Chambers Consulting Providers: Valerie Freitas; Steven Bustos Instructions Patient Instructions: Pneumonia Community Acquired Additional Instructions / Restrictions: DISCHARGE INSTRUCTIONS PLEASE READ *Please take this with you to your next doctors appointment* -You will be discharged on an additional 5 days of antibiotics an additional 5 days of prednisone - additionally recommend nebs every 6 hours and 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 -For any concerning signs or symptoms please call 911 or proceed to the nearest emergency department Discharge Orders/Prescriptions Prescriptions: New cefuroxime axetil 250 mg Tablet 500 mg PO Q12 5 Days Qty: 20 0RF guaifenesin [Mucus Relief ER] 1,200 mg Tablet Extended Release 12hr 1,200 mg PO BID 7 Days Qty: 14 0RF ipratropium-albuterol 0.5 mg-3 mg(2.5 mg base)/3 mL Solution For Nebulization 3 ml inhalation Q6H Qty: 0 0RF prednisone 20 mg tablet 40 mg PO DAILY 5 Days Qty: 10 0RF Continued aspirin [Adult Low Dose Aspirin] 81 mg tablet,delayed release (DR/EC) 81 mg PO DAILY Creon 36,000-114,000- 180,000 unit capsule,delayed release(DR/EC) 1 cap PO TID Qty: 90 3RF Rx Instructions: administer with meals and/or snacks atorvastatin 20 mg tablet 20 mg PO QHS Patient Comments: TAKE 1 TABLET BY MOUTH ONCE DAILY donepezil 10 mg tablet 10 mg PO QHS Patient Comments: TAKE 1 TABLET BY MOUTH NIGHTLY calcium carbonate-vitamin D3 500 mg-15 mcg (600 unit) tablet 1 tab PO BID Patient Comments: TAKE 1 TABLET BY MOUTH TWICE DAILY alendronate 70 mg tablet 70 mg PO QWEEK Patient Comments: TAKE 1 TABLET NEEDED EVERY SUN {Q1W1} venlafaxine 150 mg capsule,extended release 24hr 150 mg PO DAILY Patient Comments: TAKE 1 CAPSULE BY MOUTH EVERY DAY propranolol 80 mg capsule,extended release 24 hr 80 mg PO BID Patient Comments: TAKE 1 CAPSULE BY MOUTH TWICE DAILY HOLD FOR SBP <120 montelukast 10 mg tablet 10 mg PO DAILY Patient Comments: TAKE 1 TABLET BY MOUTH EVERY DAY primidone 50 mg tablet 50 mg PO DAILY loratadine [Loradamed] 10 mg tablet 10 mg PO DAILY pantoprazole 40 mg tablet,delayed release (DR/EC) 40 mg PO BID Qty: 60 2RF potassium chloride 20 mEq/15 mL liquid 40 meq PO BID Gemtesa 75 mg tablet 75 mg PO DAILY clonidine HCl 0.1 mg Tablet 0.1 mg PO TID Qty: 0 0RF polysaccharide iron complex [Ferrex 150] 150 mg iron Capsule 150 mg PO BID Qty: 0 0RF acetaminophen 500 mg Tablet 1,000 mg PO Q8 Qty: 0 0RF ascorbic acid (vitamin C) 500 mg Tablet 500 mg PO BIDCM Qty: 0 0RF oxybutynin chloride 5 mg Tablet 10 mg PO QHS Qty: 0 0RF losartan 100 mg Tablet 100 mg PO DAILY Qty: 0 0RF acidophilus-pectin, citrus 25 million cell -100 mg Tablet 1 tab PO BID Qty: 0 0RF melatonin 10 mg Tablet, Sublingual 10 mg PO QHS Qty: 0 0RF cholestyramine-aspartame 4 gram powder in packet 4 g PO DAILY Qty: 30 2RF Rx Instructions: administer w/meal; avoid other meds within 1hr before or 4-6hr after dose budesonide 3 mg capsule,delayed,extend.release 6 mg PO DAILY Qty: 60 3RF diphenoxylate-atropine [Lomotil] 2.5-0.025 mg tablet 2 tab PO BID PRN (Reason: diarrhea) Qty: 120 1RF Referrals / Follow Up: Edouard Chambers MD [Primary Care Provider] - Care Physician,No Primary [Non-Staff] - Disposition Disposition (needs filled in before D/C Order can be placed): NonSkilled NH/Intermed Care
--- NOTE | 2024-08-26 09:11 | PCM.DC.SUM ---
Providers Date of Admission: 08/23/24 Date of Discharge: 08/26/24 Primary Care Physician: Dr. Edouard Chambers MD Reason For Visit: COPD EXAC,PNA Diagnosis Discharge Diagnosis (1) COPD exacerbation: Status: Chronic Code(s): J44.1 - Chronic obstructive pulmonary disease with (acute) exacerbation (2) Hypoxia: Status: Acute Code(s): R09.02 - Hypoxemia Plan # Acute hypoxia secondary to COPD exacerbation and community-acquired pneumonia superimposed on chronic respiratory failure on 4 L home O2 nightly #Chronic diarrhea #Hypertension #Dementia #Depression with anxiety #GERD Medications at Discharge Home Medications alendronate 70 mg tablet 70 mg PO QWEEK supplement 01/12/24 atorvastatin 20 mg tablet 20 mg PO QHS hld 01/12/24 calcium 500 mg (as carbonate)-vitamin D3 15 mcg (600 unit) tablet 1 tab PO BID calcuim 01/12/24 donepezil 10 mg tablet 10 mg PO QHS dementia 01/12/24 loratadine 10 mg tablet (Loradamed) 10 mg PO DAILY congestion 01/12/24 montelukast 10 mg tablet 10 mg PO DAILY asthma 01/12/24 primidone 50 mg tablet 50 mg PO DAILY tremors 01/12/24 propranolol 80 mg capsule,24 hr,extended release 80 mg PO BID htn 01/12/24 venlafaxine 150 mg capsule,extended release 24 hr 150 mg PO DAILY depression 01/12/24 pantoprazole 40 mg tablet,delayed release 40 mg PO BID reflux #60 tabs 01/17/24 acetaminophen 500 mg tablet 1,000 mg (2 x 500 mg) PO Q8 #0 tabs 01/29/24 acidophilus 25 million cell-pectin, citrus 100 mg tablet 1 tab PO BID #0 tabs 01/29/24 ascorbic acid (vitamin C) 500 mg tablet 500 mg PO BIDCM #0 tabs 01/29/24 clonidine HCl 0.1 mg tablet 0.1 mg PO TID #0 tabs 01/29/24 losartan 100 mg tablet 100 mg PO DAILY #0 tabs 01/29/24 melatonin 10 mg sublingual tablet 10 mg PO QHS #0 tabs 01/29/24 oxybutynin chloride 5 mg tablet 10 mg (2 x 5 mg) PO QHS #0 tabs 01/29/24 polysaccharide iron complex 150 mg iron capsule (Ferrex) 150 mg PO BID #0 caps 01/29/24 budesonide 3 mg capsule,delayed,extended release 6 mg (2 x 3 mg) PO DAILY #60 ea 03/31/24 cholestyramine-aspartame 4 gram oral powder for susp in a packet 4 g PO DAILY #30 ea 03/31/24 aspirin 81 mg tablet,delayed release (Adult Low Dose Aspirin) 81 mg PO DAILY 04/07/24 [id number] 36,000-114,000-180,000 unit capsule,delay rel (Creon) 1 cap PO TID #90 caps 04/07/24 diphenoxylate-atropine 2.5 mg-0.025 mg tablet (Lomotil) 2 tab PO BID PRN diarrhea #120 tabs 07/10/24 potassium chloride 20 mEq/15 mL oral liquid 40 meq PO BID 08/23/24 vibegron 75 mg tablet (Gemtesa) 75 mg PO DAILY 08/23/24 cefuroxime axetil 250 mg tablet 500 mg (2 x 250 mg) PO Q12 5 days #20 tabs 08/26/24 guaifenesin 1,200 mg tablet, extended release 12 hr (Mucus Relief ER) 1,200 mg PO BID 7 days #14 tabs 08/26/24 ipratropium 0.5 mg-albuterol 3 mg (2.5 mg base)/3 mL nebulization soln 3 ml inhalation Q6H #0 mL 08/26/24 prednisone 20 mg tablet 40 mg (2 x 20 mg) PO DAILY 5 days #10 tabs 08/26/24 Hospital Course Summary of Care Provided Minutes Spent on Discharge: 28 Hospital Course: 84-year-old female history of COPD on 4 L home O2 nightly, chronic diarrhea, hypertension, dementia, depression/anxiety, GERD who presented to [facility] ED 08/23/2024 with increased shortness of breath. She was hypoxic on presentation and had suspected infiltrate on chest x-ray. Was started on O2 and CAP coverage, also was suspected to have COPD exacerbation from her pneumonia and was on IV steroids and nebs. Patient tolerated all of this very well and improved significantly and was weaned off of O2 and only on her nightly O2. Tolerated switch to oral prednisone and oral antibiotics. Will be discharged on additional 5 days of antibiotics and prednisone burst. No new or acute complaints on day of discharge. Discussed with patient's daughter at bedside Physical Exam Narrative General: Alert, family member at bedside, no apparent distress HEENT: Atraumatic, normocephalic Eyes: Anicteric, normal conjunctiva, extraocular movements grossly intact Neck: Supple Respiratory: Very minimal scattered wheezes with no increased respiratory effort, no rhonchi, no crackles Cardiovascular: Regular rate GI: Soft, nontender, nondistended Extremities: No edema Musculoskeletal: Moving all extremities Neuro: No overt focal neurological deficits Skin: No rashes appreciated Psych: Cooperative Weight / BMI Weight Weight: 58.6 kg Body Mass Index (BMI) 22.0 ABG / Lab / Microbiology Data 08/26/24 06:51 08/26/24 06:51 Laboratory: Laboratory Results - last 24 hr 08/23/24 19:35: Diff Path Review Reviewed 08/26/24 06:51: WBC 13.2 H, RBC 3.85 L, Hgb 11.9 L, Hct 39.4, MCV 102.3 H, MCH 30.9, MCHC 30.2 L, RDW Std Deviation 44.8 H, RDW Coeff of Laura 11.9, Plt Count 280, MPV 9.0, Sodium 143, Potassium 4.4, Chloride 110 H, Carbon Dioxide 28.0, Anion Gap 5, BUN 17, Creatinine 0.70, Estim Creat Clear Calc 46.82, Est GFR (MDRD) Af Amer 103, Est GFR (MDRD) Non-Af 85, BUN/Creatinine Ratio 24.4 H, Glucose 98, Calcium 9.1 Microbiology: Microbiology 08/24/24 07:39 Sputum, Expectorated/Coughed Gram Stain - Final 08/24/24 07:39 Urine, Random Streptococcus pneumoniae Antigen (M - Final 08/24/24 07:39 Urine, Random Legionella Antigen - Final 08/24/24 00:02 Mucosa - Nasopharyngeal Respiratory Panel (PCR) - Final 08/23/24 19:45 Mucosa - Nose SARS-CoV-2, Influenza & RSV (PCR) - Final Meaningful Use Info Meaningful Use Meaningful Use Diagnoses (Choose all that apply): None applicable Ischemic Stroke Statin Dosing Therapy Reference: STATIN DOSE THERAPY REFERENCE: * Patients > 75 years receive moderate or high dose statin therapy. * Patients 75 years or YOUNGER should receive HIGH intensity statin dose unless contraindicated. You will be required to document reason for non-treatment if statin daily dose does not meet guidelines. HIGH DOSE STATIN THERAPY DAILY Atorvastatin > than or = to 40 mg Rosuvastatin > than or = to 20 mg Amlodipine + Atorvastatin > than or = to 2.5/40 mg Ezetimibe + Simvastatin 10/80 mg Simvastatin 80mg Discharge Plan Admission Admit Date/Time: 08/23/24 22:34 Primary Reason for Your Visit: Shortness of breath Attending Provider: Amanda Jeter Primary Care Provider: Edouard Chambers Consulting Providers: Valerie Freitas; Steven Bustos Instructions Patient Instructions: Pneumonia Community Acquired Additional Instructions / Restrictions: DISCHARGE INSTRUCTIONS PLEASE READ *Please take this with you to your next doctors appointment* -You will be discharged on an additional 5 days of antibiotics an additional 5 days of prednisone - additionally recommend nebs every 6 hours and a follow-up with your jacket changer -Please call your primary care provider's office upon discharge to schedule a hospital follow up within 1 week. -For any concerning signs or symptoms please call 911 or proceed to the nearest emergency department Discharge Orders/Prescriptions Prescriptions: New cefuroxime axetil 250 mg Tablet 500 mg PO Q12 5 Days Qty: 20 0RF guaifenesin [Mucus Relief ER] 1,200 mg Tablet Extended Release 12hr 1,200 mg PO BID 7 Days Qty: 14 0RF ipratropium-albuterol 0.5 mg-3 mg(2.5 mg base)/3 mL Solution For Nebulization 3 ml inhalation Q6H Qty: 0 0RF prednisone 20 mg tablet 40 mg PO DAILY 5 Days Qty: 10 0RF Continued aspirin [Adult Low Dose Aspirin] 81 mg tablet,delayed release (DR/EC) 81 mg PO DAILY Creon 36,000-114,000- 180,000 unit capsule,delayed release(DR/EC) 1 cap PO TID Qty: 90 3RF Rx Instructions: administer with meals and/or snacks atorvastatin 20 mg tablet 20 mg PO QHS Patient Comments: TAKE 1 TABLET BY MOUTH ONCE DAILY donepezil 10 mg tablet 10 mg PO QHS Patient Comments: TAKE 1 TABLET BY MOUTH NIGHTLY calcium carbonate-vitamin D3 500 mg-15 mcg (600 unit) tablet 1 tab PO BID Patient Comments: TAKE 1 TABLET BY MOUTH TWICE DAILY alendronate 70 mg tablet 70 mg PO QWEEK Patient Comments: TAKE 1 TABLET NEEDED EVERY SUN {Q1W1} venlafaxine 150 mg capsule,extended release 24hr 150 mg PO DAILY Patient Comments: TAKE 1 CAPSULE BY MOUTH EVERY DAY propranolol 80 mg capsule,extended release 24 hr 80 mg PO BID Patient Comments: TAKE 1 CAPSULE BY MOUTH TWICE DAILY HOLD FOR SBP <120 montelukast 10 mg tablet 10 mg PO DAILY Patient Comments: TAKE 1 TABLET BY MOUTH EVERY DAY primidone 50 mg tablet 50 mg PO DAILY loratadine [Loradamed] 10 mg tablet 10 mg PO DAILY pantoprazole 40 mg tablet,delayed release (DR/EC) 40 mg PO BID Qty: 60 2RF potassium chloride 20 mEq/15 mL liquid 40 meq PO BID Gemtesa 75 mg tablet 75 mg PO DAILY clonidine HCl 0.1 mg Tablet 0.1 mg PO TID Qty: 0 0RF polysaccharide iron complex [Ferrex 150] 150 mg iron Capsule 150 mg PO BID Qty: 0 0RF acetaminophen 500 mg Tablet 1,000 mg PO Q8 Qty: 0 0RF ascorbic acid (vitamin C) 500 mg Tablet 500 mg PO BIDCM Qty: 0 0RF oxybutynin chloride 5 mg Tablet 10 mg PO QHS Qty: 0 0RF losartan 100 mg Tablet 100 mg PO DAILY Qty: 0 0RF acidophilus-pectin, citrus 25 million cell -100 mg Tablet 1 tab PO BID Qty: 0 0RF melatonin 10 mg Tablet, Sublingual 10 mg PO QHS Qty: 0 0RF cholestyramine-aspartame 4 gram powder in packet 4 g PO DAILY Qty: 30 2RF Rx Instructions: administer w/meal; avoid other meds within 1hr before or 4-6hr after dose budesonide 3 mg capsule,delayed,extend.release 6 mg PO DAILY Qty: 60 3RF diphenoxylate-atropine [Lomotil] 2.5-0.025 mg tablet 2 tab PO BID PRN (Reason: diarrhea) Qty: 120 1RF Referrals / Follow Up: Edouard Chambers MD [Primary Care Provider] - Care Physician,No Primary [Non-Staff] - Disposition Disposition (needs filled in before D/C Order can be placed): NonSkilled NH/Intermed Care Charges/Coding Visit Charges Inpatient E&M: 23893 Disch Hosp
[2024-08-26 09:30] VITALS: BP 148/86; PULSE 66; RESP 16; TEMP 36.8; O2SAT 94
--- NOTE | 2024-08-26 10:00 | PHA.DC.MR.R ---
Pharmacy CT Med Reconciliation Pharmacy Service has performed discharge medication reconciliation for this patient. The patient's discharge medication list was reviewed for discrepancies and discrepancies were resolved. Medications at Discharge Home Medications alendronate 70 mg tablet 70 mg PO QWEEK supplement 01/12/24 atorvastatin 20 mg tablet 20 mg PO QHS hld 01/12/24 calcium 500 mg (as carbonate)-vitamin D3 15 mcg (600 unit) tablet 1 tab PO BID calcuim 01/12/24 donepezil 10 mg tablet 10 mg PO QHS dementia 01/12/24 loratadine 10 mg tablet (Loradamed) 10 mg PO DAILY congestion 01/12/24 montelukast 10 mg tablet 10 mg PO DAILY asthma 01/12/24 primidone 50 mg tablet 50 mg PO DAILY tremors 01/12/24 propranolol 80 mg capsule,24 hr,extended release 80 mg PO BID htn 01/12/24 venlafaxine 150 mg capsule,extended release 24 hr 150 mg PO DAILY depression 01/12/24 pantoprazole 40 mg tablet,delayed release 40 mg PO BID reflux #60 tabs 01/17/24 acetaminophen 500 mg tablet 1,000 mg (2 x 500 mg) PO Q8 #0 tabs 01/29/24 acidophilus 25 million cell-pectin, citrus 100 mg tablet 1 tab PO BID #0 tabs 01/29/24 ascorbic acid (vitamin C) 500 mg tablet 500 mg PO BIDCM #0 tabs 01/29/24 clonidine HCl 0.1 mg tablet 0.1 mg PO TID #0 tabs 01/29/24 losartan 100 mg tablet 100 mg PO DAILY #0 tabs 01/29/24 melatonin 10 mg sublingual tablet 10 mg PO QHS #0 tabs 01/29/24 oxybutynin chloride 5 mg tablet 10 mg (2 x 5 mg) PO QHS #0 tabs 01/29/24 polysaccharide iron complex 150 mg iron capsule (Ferrex) 150 mg PO BID #0 caps 01/29/24 budesonide 3 mg capsule,delayed,extended release 6 mg (2 x 3 mg) PO DAILY #60 ea 03/31/24 cholestyramine-aspartame 4 gram oral powder for susp in a packet 4 g PO DAILY #30 ea 03/31/24 aspirin 81 mg tablet,delayed release (Adult Low Dose Aspirin) 81 mg PO DAILY 04/07/24 [id number] 36,000-114,000-180,000 unit capsule,delay rel (Creon) 1 cap PO TID #90 caps 04/07/24 diphenoxylate-atropine 2.5 mg-0.025 mg tablet (Lomotil) 2 tab PO BID PRN diarrhea #120 tabs 07/10/24 potassium chloride 20 mEq/15 mL oral liquid 40 meq PO BID 08/23/24 vibegron 75 mg tablet (Gemtesa) 75 mg PO DAILY 08/23/24 cefuroxime axetil 250 mg tablet 500 mg (2 x 250 mg) PO Q12 5 days #20 tabs 08/26/24 guaifenesin 1,200 mg tablet, extended release 12 hr (Mucus Relief ER) 1,200 mg PO BID 7 days #14 tabs 08/26/24 ipratropium 0.5 mg-albuterol 3 mg (2.5 mg base)/3 mL nebulization soln 3 ml inhalation Q6H #0 mL 08/26/24 prednisone 20 mg tablet 40 mg (2 x 20 mg) PO DAILY 5 days #10 tabs 08/26/24
--- NOTE | 2024-08-26 10:39 | CASEMGMT ---
Social Work Physician reports that pt is ready for discharge today.? Pt family reports that they will transport pt at 13:00.?DCA and bedside nurse notified of discharge time. Disposition:?[facility], intermediate level of care [place]
--- NOTE | 2024-08-26 10:39 | CASEMGMT ---
Discharge Planning Discharge orders, signed med list, and transport time sent to [facility] via [facility]. Pts family will transport at 1p. Nori Saunders DC Planning Asst.
[2024-08-26] MEDS: Cholestyramine/Sucrose 4 GM/PACKET PO (10:42)
[2024-08-26] MEDS: Menthol/Lanolin/Calamine/Znox 113 GM Tube 1 APPLIC TOPICAL (10:42)
[2024-08-26 11:27] VITALS: PULSE 78; RESP 19
[2024-08-26 15:00] VITALS: BP 142/82; PULSE 81; RESP 18; TEMP 36.8; O2SAT 95
[2024-08-26 15:35] VITALS: PULSE 89; RESP 18
--- NOTE | 2024-08-26 15:56 | CASEMGMT ---
Social Work- HIRA called [facility] to verify transport, as it is three hours past when family reported transport would occur. Monica reports Rachel is supposed to be at the hospital now. HIRA called Rachel; Rachel does not have voicemail set up. HIRA called Monica back to let her know Rachel was not available. Monica reported that Rachel is on her way up. Bedside nurse notified. [place]
== END 2024-08-26 16:45 | disposition intermediate care facility (04) | DRG 190 ==
LOC: ED 19:20 → MS3 22:42
PROVIDERS: Admitting Provider Family Medicine; Emergency Provider Emergency Medicine; PCP Family Medicine; Visit Provider Internal Medicine
DX: J44.1 Chronic obstructive pulmonary disease with (acute) exacerbation (principal); J15.4 Pneumonia due to other streptococci; J96.11 Chronic respiratory failure with hypoxia; F02.80 Dementia in other diseases classified elsewhere, unspecified severity, without behavioral disturbance, psychotic disturbance, mood disturbance, and anxiety; J44.0 Chronic obstructive pulmonary disease with (acute) lower respiratory infection; I10 Essential (primary) hypertension; F32.A Depression, unspecified; G30.9 Alzheimer's disease, unspecified; K21.9 Gastro-esophageal reflux disease without esophagitis; E78.5 Hyperlipidemia, unspecified; K52.9 Noninfective gastroenteritis and colitis, unspecified; F41.9 Anxiety disorder, unspecified; J30.9 Allergic rhinitis, unspecified; G25.0 Essential tremor; K86.89 Other specified diseases of pancreas; Z66 Do not resuscitate; Z79.82 Long term (current) use of aspirin; Z79.899 Other long term (current) drug therapy; Z87.891 Personal history of nicotine dependence; Z23 Encounter for immunization
CPT/HCPCS: 36415; 71045; 80048; 80053; 82803; 83605; 83880; 84145; 84484; 85025; 85027; 87070; 87205; 87449; 87631; 87633; 90662; 93005; 94640; 94668; 97161; 97166; 97530; 97802; 99285; J7030; A4216

== ENCOUNTER → 2024-09-09 | Outpatient (CLI) | payer MEDICARE, MEDICAID, SELFPAY ==
--- NOTE | 2024-09-09 15:36 | RAD_ITS ---
STUDY: X-RAY CHEST REASON FOR EXAM: Female, 84 years old. COPD, PNEUMONIA TECHNIQUE: PA and lateral views of the chest. COMPARISON: 08/23/2024 FINDINGS: There is hyperinflation of the lungs consistent with chronic obstructive lung disease (COPD). There is no demonstrated pleural abnormality. Normal size heart. Normal mediastinum and grecia. Normal visualized pulmonary arteries. Normal visualized aortic arch and descending thoracic aorta. Normal visualized thoracic spine. Normal visualized ribs, clavicles, and shoulders. There is no demonstrated abnormality of the visualized soft tissue structures of the upper abdomen. RAD/Chest PA and Lateral IMPRESSION: Emphysema without pneumonia or atelectasis. Electronically Signed: Shan Frazier MD at 10:18 EDT ,
== END | disposition home or self-care (01) ==
LOC: MTRAD 15:34
PROVIDERS: PCP Family Medicine; Referring Provider Internal Medicine Pulmonary Disease; Visit Provider Internal Medicine Pulmonary Disease
DX: J44.9 Chronic obstructive pulmonary disease, unspecified (principal); J18.9 Pneumonia, unspecified organism
CPT/HCPCS: 71046

== ENCOUNTER → 2025-02-06 | Outpatient (CLI) | payer MEDICARE, MEDICAID, SELFPAY ==
--- NOTE | 2025-02-06 16:40 | RAD_ITS ---
PROCEDURE: ABDOMEN SINGLE VIEW 02/06/2025 REASON FOR EXAM: CONSTIPATION TECHNIQUE: Single view abdomen. 2 AP views to include the entire abdomen and pelvis COMPARISON: 01/16/2020 FINDINGS: Mainly gaseous prominence of the colon without significant appearing colonic gaseous distention or significant appearing fecal load identified. No gaseous distention of small bowel. Visualized lung bases appear clear. Again multiple calcific densities are seen projecting at the inferior edge of the liver shadow are most consistent with gallstones again noted. Scoliosis with multilevel spondylosis/discogenic change again noted as well as irregular shaped sclerotic focus at the left sacrum. Status post partially imaged left hip replacement. Right obturator ring fracture deformity appears nonacute, but is apparently new since 2019, clinically correlate. RAD/Abdomen Single View IMPRESSION: Mainly gaseous prominence of the colon without significant appearing colonic ga seous distention or significant appearing fecal load identified. No gaseous distention of small bowel. Findings most consistent with cholelithiasis as above. Scoliosis with multilevel spondylosis as above. Right obturator ring fracture deformity appears nonacute, but is apparently new since 2019 films, clinically correlate. Reading Location: [id number]
== END | disposition home or self-care (01) ==
LOC: RAD 16:25
PROVIDERS: PCP Family Medicine; Referring Provider Internal Medicine Gastroenterology; Visit Provider Internal Medicine Gastroenterology
DX: K59.00 Constipation, unspecified (principal)
CPT/HCPCS: 74018

== ENCOUNTER 2025-10-18 09:46 | Emergency (ER) | payer MEDICARE, MEDICAID, SELFPAY ==
[2025-10-18 09:47] VITALS: BP 180/95; PULSE 61; RESP 17; TEMP 35.9; O2SAT 97
--- NOTE | 2025-10-18 10:11 | CT_ITS ---
PROCEDURE: CT CHEST, ABD, PELVIS WO CONT 10/18/2025 REASON FOR EXAM: FALL LEFT RIB/LOW BACK/L BUTTOCK PAIN TECHNIQUE: Chest, abdomen and pelvis CT without intravenous contrast. Coronal and Sagittal reconstruction series were provided. One or more dose reduction techniques were used (e.g., Automated exposure control, adjustment of the mA and/or kV according to patient size, use of iterative reconstruction technique. RADIATION DOSE SUMMARY: CTDlvol: 44.99 mGy DLP: 1790.15 mGycm COMPARISON: September 09, 2024 and February 06, 2025 FINDINGS: CT CHEST: There is dependent atelectasis at the right lung base. 3 mm nodules are noted in the left lower lobe on image 92, series 9. There is nodularity of what may reflect mucoid impaction in the right middle lobe on image 59, series 9. No pneumothorax or pleural effusion. There is a right thyroid nodule measuring 1.8 cm on image 9, series 5. No mediastinal mass, adenopathy, or hematoma. Atherosclerotic coronary calcifications are present. There is a small to moderate size sliding hiatal hernia present. There is a healed rib fracture of what is likely the 11th rib on the right posteriorly. No acute fracture is noted. CT ABDOMEN / PELVIS: Noncontrast technique limits evaluation of the abdominal and pelvic viscera. Liver: Well-defined hypoattenuating lesions are noted in the liver, potentially cysts. The largest is in the medial segment left hepatic lobe measuring up to 2.1 cm. Gallbladder: Gallstones are noted layering in the gallbladder. The common bile duct is mildly dilated at 6.7 mm. Spleen: Normal size. Pancreas: Normal size without evidence of mass surrounding inflammation or ductal dilation. Adrenals: Unremarkable Kidneys: There are small nonobstructing calculi in the lower pole of the right kidney. There is mild dilatation of the right ureter but no distal obstructing calculus. Bladder: Distended with urine. Reproductive Organs: The uterus is not definitively seen and may be surgically absent. Bowel: Moderate amount of colonic stool. No bowel obstruction. Appendix: Not seen and may be surgically absent. Lymph nodes: No intra-abdominal adenopathy. Vasculature: Atherosclerotic aortoiliac calcifications are present. Peritoneum / Retroperitoneum: No free fluid or free air. Bones: There are healed inferior pubic rami fractures bilaterally. There is a sclerotic lesion in the left sacral ala which is of doubtful significance. There is levoconvex scoliosis of the lumbar spine. There is superior endplate compression at L1, best seen on image 82, series 608 and image 62, series 607. This may be subacute. There is a left hip arthroplasty. Streak artifact from this limits evaluation of surrounding soft tissues. There is a healed sacral fracture on the left. CT/CT Chest, Abd, Pelvis WO Cont IMPRESSION: No acute intrathoracic process. There may be some mucoid impaction in the righ t middle lobe although nodular soft tissue mass not excluded. Consider short-term follow-up CT in 1-3 months. There are also 3 mm nodules at the left lung base. Right thyroid nodule. Consider nonemergent ultrasound. Hepatic lesions, likely cysts. Nonobstructing right-sided nephrolithiasis. Superior endplate compression at L1, potentially subacute. MRI may better elham acterize. Additional findings as above. Reading Location: [facility]
--- NOTE | 2025-10-18 10:11 | CT_ITS ---
PROCEDURE: BRAIN/HEAD WITHOUT CONTRAST 10/18/2025 REASON FOR EXAM: INJURY TECHNIQUE: Procedure Code: CTBR Modality: CT Procedure: BRAIN/HEAD WITHOUT CONTRAST Coronal and Sagittal reconstruction series were provided. One or more dose reduction techniques were used (e.g., Automated exposure control, adjustment of the mA and/or kV according to patient size, use of iterative reconstruction technique. RADIATION DOSE SUMMARY: Not provided. COMPARISON: March 24, 2024 FINDINGS: There is mild age-related volume loss and periventricular small-vessel ischemic change present. Intracranial atherosclerotic calcifications are present. There is no acute intracranial hemorrhage or mass effect. The orbits are unremarkable. The paranasal sinuses and mastoid air cells are clear. The calvarium is intact. CT/Brain/Head without Contrast IMPRESSION: No acute findings. Reading Location: [facility]
--- NOTE | 2025-10-18 10:12 | ED.VIS.FALL ---
HPI HPI - Fall History of Present Illness Chief Complaint: Fall Informant: patient and family (Daughter) Narrative Narrative: 85-year-old female presenting to the emergency room following a fall. Patient reportedly got up in the middle of the night around 0130 hrs. to utilize the bathroom. She believes she tripped and fell but she is not 100% sure as to why she fell. She denies any loss of consciousness. Daughter received a phone call during the night at that time had some bruising of the left forearm skin tear. This morning was noted to have pain in the left buttock posterior hip region. Patient was complaining of pain particular with ambulation and daughter brought her to the ED for evaluation. Patient also notes pain in the low back. When asked to take a deep breath she notes discomfort on the left posterior lateral lower ribs. Daughter does not believe the patient takes any blood thinners. Patient is unsure whether or not she hit her head but does not believe so. [facility] Medical History (Updated 10/18/25 @ 15:[address] Kraig Abreu, ) On home oxygen therapy COPD (chronic obstructive pulmonary disease) Dementia Chronic hypoxic respiratory failure, on home oxygen therapy GERD (gastroesophageal reflux disease) Alzheimer dementia Essential tremor History of GI bleed Chronic anemia Anxiety and depression Chronic diarrhea Former smoker Exocrine pancreatic insufficiency Closed fracture of single pubic ramus of pelvis COPD (chronic obstructive pulmonary disease) Hyperlipemia Osteoarthritis HTN (hypertension) Home Medications Medication Instructions Recorded Last Taken Type alendronate 70 mg tablet 70 mg PO QWEEK supplement 01/12/24 08/17/24 History atorvastatin 20 mg tablet 20 mg PO QHS hld 01/12/24 01/16/24 History donepezil 10 mg tablet 10 mg PO QHS dementia 01/12/24 01/16/24 History loratadine 10 mg tablet (Loradamed) 10 mg PO DAILY congestion 01/12/24 01/17/24 History montelukast 10 mg tablet 10 mg PO DAILY asthma 01/12/24 01/17/24 History primidone 50 mg tablet 50 mg PO DAILY tremors 01/12/24 01/17/24 History propranolol 80 mg capsule,24 80 mg PO BID htn 01/12/24 01/17/24 History hr,extended release venlafaxine 150 mg 150 mg PO DAILY depression 02/24/24 02/29/24 History capsule,extended release 24 hr pantoprazole 40 mg tablet,delayed 40 mg PO BID reflux #60 tabs 01/17/24 Unknown Rx release acetaminophen 500 mg tablet 1,000 mg (2 x 500 mg) PO Q8 #0 tabs 01/29/24 Unknown Rx acidophilus 25 million 1 tab PO BID #0 tabs 01/29/24 Unknown Rx cell-pectin, citrus 100 mg tablet ascorbic acid (vitamin C) 500 mg 500 mg PO BIDCM #0 tabs 01/29/24 Unknown Rx tablet clonidine HCl 0.1 mg tablet 0.1 mg PO TID #0 tabs 01/29/24 Unknown Rx losartan 100 mg tablet 100 mg PO DAILY #0 tabs 01/29/24 Unknown Rx melatonin 10 mg sublingual tablet 10 mg PO QHS #0 tabs 01/29/24 Unknown Rx polysaccharide iron complex 150 mg 150 mg PO BID #0 caps 01/29/24 Unknown Rx iron capsule (Ferrex) budesonide 3 mg 6 mg (2 x 3 mg) PO DAILY #60 ea 03/31/24 Unknown Rx capsule,delayed,extended release cholestyramine-aspartame 4 gram 4 g PO DAILY #30 ea 03/31/24 Unknown Rx oral powder for susp in a packet aspirin 81 mg tablet,delayed 81 mg PO DAILY 04/07/24 Unknown History release (Adult Low Dose Aspirin) bihxrd-eyhjndxb-ivahbgx 1 cap PO TID #90 caps 04/07/24 Unknown Rx (pork)36,000-114,000-180k unit capsule,del rel (Creon) diphenoxylate-atropine 2.5 2 tab PO BID PRN diarrhea #120 tabs 07/10/24 Unknown Rx mg-0.025 mg tablet (Lomotil) potassium chloride 20 mEq/15 mL 40 meq PO BID 08/23/24 Unknown History oral liquid vibegron 75 mg tablet (Gemtesa) 75 mg PO DAILY 08/23/24 Unknown History guaifenesin 1,200 mg tablet, 1,200 mg PO BID 7 days #14 tabs 08/26/24 Unknown Rx extended release 12 hr (Mucus Relief ER) ipratropium 0.5 mg-albuterol 3 mg 3 ml inhalation Q6H #0 mL 08/26/24 Unknown Rx (2.5 mg base)/3 mL nebulization soln hydralazine 50 mg tablet 50 mg PO TID 01/27/25 Unknown History Allergy/AdvReac Type Severity Reaction Status Date / Time Penicillins Allergy Unknown NEEDS Verified 10/18/25 09:47 FOLLOW-UP lactose (lactose intolerant) AdvReac Mild severe Verified 10/18/25 09:47 diarrhea Family History Mother Cancer Father Cancer Hypertension Surgical History (Updated 10/18/25 @ 10:55 by Thuy Kramer) History of coronary artery stent placement Status post wrist surgery History of hip surgery History of hysterectomy History of bowel resection Social History household members: none housing: assisted living facility Smoking Status: Former smoker how long ago did patient quit smoking: Quit ~ 15 years ago, < 1/2 ppd per family. alcohol intake: never substance use type: does not use ROS ROS ED Constitutional Constitutional ED: Denies chills, fever(s) or weight loss Eyes Eyes: Denies change in vision or diplopia ENT ENT ED: Denies ear pain, rhinorrhea or sore throat Cardiovascular Cardiovascular: Denies chest pain, orthopnea, palpitations or racing heartbeat Respiratory/Chest Respiratory/Chest: Denies cough, dyspnea or orthopnea Gastrointestinal Gastrointestinal: Denies abdominal pain, diarrhea, nausea or vomiting Genitourinary Genitourinary ED: Denies dysuria, hematuria or urinary frequency Musculoskeletal Musculoskeletal: Reports back pain and other Details: Left elbow left buttock/hip left shoulder contusions ; Denies arthralgias, myalgias or neck pain Integumentary Reports Abrasions; Denies abscess or rash Neurologic Neurologic: Denies headache(s), paresthesias or weakness Psychiatric Psychiatric: Denies anxiety, depression, suicidal ideation or suicidal thoughts Endocrine Endocrinology: Denies polydipsia, polyphagia or polyuria Allergic/Immunologic Allergic/Immunologic ED: Denies mouth swelling, tongue swelling or urticaria EXAM Physical Exam Const Vital Signs: 10/18/25 09:47 10/18/25 10:14 10/18/25 11:45 Temperature 96.7 F L Temperature Source Temporal Pulse Rate 61 69 Respiratory Rate 17 20 H Respiratory Effort Normal Blood Pressure 180/95 H 149/103 H Blood Pressure Mean 123 118 Pulse Ox 97 96 Oxygen Delivery Method Room Air Room Air 10/18/25 13:00 Temperature Temperature Source Pulse Rate 69 Respiratory Rate 18 Respiratory Effort Blood Pressure 191/86 H Blood Pressure Mean 121 Pulse Ox 96 Oxygen Delivery Method Positive well nourished and well developed General Appearance ED: well developed and NAD HEENT Reports normocephalic, head/scalp atraumatic and moist mucous membranes Eyes PERRL and EOMs intact bilaterally Neck full ROM, no lymphadenopathy, supple and no JVD General: Negative for tenderness Chest Wall Chest Narrative: Patient has tenderness to palpation across the lower left posterior lateral ribs. No subcutaneous emphysema crepitance or obvious deformities palpated. Resp normal respiratory effort and clear to auscultation bilaterally Cardio regular rate, regular rhythm and no murmurs GI normal to inspection, nondistended, normoactive bowel sounds and non-tender Palpation: soft Back/Spine no CVA tenderness Back/Spine Narrative: Patient notes some painful range of motion. She notes tenderness to palpation across the lower lumbar region. Extremity Extremity Narrative: There is a small anterior left shoulder faint contusion. No obvious deformity. There is a left proximal lateral forearm purpleish contusion. No pain with pronation supination or flexion extension. No obvious deformity. Superficial skin tear. There is left buttock purpleish contusion. General Extremety ED: Negative for edema General Extremity: Negative for edema Neuro oriented x3 and CN's II-XII intact bilaterally Sensorium / Orientation: alert Motor Exam: strength 5/5 throughout Psych mental status grossly normal Mood & Affect: Negative for depressed or tearful Skin no rashes or lesions noted and no wounds MDM MDM MDM Narrative Medical decision making narrative: Differential diagnosis includes but not limited to back fracture shoulder fracture elbow fracture rib fracture pneumothorax hemothorax hip fracture intracranial hemorrhage/hematoma My independent interpretation of the plain films of the left elbow is no acute fracture. My independent interpretation of the plain films of the left shoulder is no acute fracture. CT of the brain was obtained negative for intracranial hemorrhage or fracture. CT of the chest abdomen pelvis was obtained. No obvious acute fractures were noted. Soft tissue contusion noted in the left buttock region. There is a L1 superior endplate fracture of unknown acuity. I spoke with the patient and her daughter regarding the above findings. If continued back pain worsening back pain would recommend repeat imaging but the last imaging that I can see L1 on was almost 2 years ago. She received a dose of oxycodone here in the department. She was able to ambulate without difficulty. Patient to be discharged back to SNF. History & Record Review Discussion w/independent historian: Patient and Family (Daughter) Radiography Diagnostic Testing: Clinical Impression(s) from Imaging Studies Brain CT 10/18/25 10:11 IMPRESSION: No acute findings. Reading Location: [facility] Chest/Abdomen/Pelvis CT 10/18/25 10:11 IMPRESSION: No acute intrathoracic process. There may be some mucoid impaction in the right middle lobe although nodular soft tissue mass not excluded. Consider short-term follow-up CT in 1-3 months. There are also 3 mm nodules at the left lung base. Right thyroid nodule. Consider nonemergent ultrasound. Hepatic lesions, likely cysts. Nonobstructing right-sided nephrolithiasis. Superior endplate compression at L1, potentially subacute. MRI may better characterize. Additional findings as above. Reading Location: [facility] Shoulder X-Ray 10/18/25 10:13 IMPRESSION: No acute bony abnormality. Reading Location: [facility] Elbow X-Ray 10/18/25 10:40 IMPRESSION: No acute abnormality noted. Reading Location: [facility] Discharge Plan Triage Chief Complaint: Fall ED Provider: Kraig Abreu Dx/Rx/DC Orders Clinical Impression: Fall, Contusion of buttock, Closed compression fracture of L1 vertebra, Contusion of forearm, left Instructions: ED Back Contusion, ED Hip Contusion Prescriptions: No Action aspirin [Adult Low Dose Aspirin] 81 mg tablet,delayed release (DR/EC) 81 mg PO DAILY Creon 36,000-114,000- 180,000 unit capsule,delayed release(DR/EC) 1 cap PO TID Qty: 90 3RF Rx Instructions: administer with meals and/or snacks hydralazine 50 mg tablet 50 mg PO TID atorvastatin 20 mg tablet 20 mg PO QHS Patient Comments: TAKE 1 TABLET BY MOUTH ONCE DAILY donepezil 10 mg tablet 10 mg PO QHS Patient Comments: TAKE 1 TABLET BY MOUTH NIGHTLY alendronate 70 mg tablet 70 mg PO QWEEK Patient Comments: TAKE 1 TABLET NEEDED EVERY SUN {Q1W1} venlafaxine 150 mg capsule,extended release 24hr 150 mg PO DAILY Patient Comments: TAKE 1 CAPSULE BY MOUTH EVERY DAY propranolol 80 mg capsule,extended release 24 hr 80 mg PO BID Patient Comments: TAKE 1 CAPSULE BY MOUTH TWICE DAILY HOLD FOR SBP <120 montelukast 10 mg tablet 10 mg PO DAILY Patient Comments: TAKE 1 TABLET BY MOUTH EVERY DAY primidone 50 mg tablet 50 mg PO DAILY loratadine [Loradamed] 10 mg tablet 10 mg PO DAILY pantoprazole 40 mg tablet,delayed release (DR/EC) 40 mg PO BID Qty: 60 2RF potassium chloride 20 mEq/15 mL liquid 40 meq PO BID Gemtesa 75 mg tablet 75 mg PO DAILY guaifenesin [Mucus Relief ER] 1,200 mg Tablet Extended Release 12hr 1,200 mg PO BID 7 Days Qty: 14 0RF ipratropium-albuterol 0.5 mg-3 mg(2.5 mg base)/3 mL Solution For Nebulization 3 ml inhalation Q6H Qty: 0 0RF clonidine HCl 0.1 mg Tablet 0.1 mg PO TID Qty: 0 0RF polysaccharide iron complex [Ferrex 150] 150 mg iron Capsule 150 mg PO BID Qty: 0 0RF acetaminophen 500 mg Tablet 1,000 mg PO Q8 Qty: 0 0RF ascorbic acid (vitamin C) 500 mg Tablet 500 mg PO BIDCM Qty: 0 0RF losartan 100 mg Tablet 100 mg PO DAILY Qty: 0 0RF acidophilus-pectin, citrus 25 million cell -100 mg Tablet 1 tab PO BID Qty: 0 0RF melatonin 10 mg Tablet, Sublingual 10 mg PO QHS Qty: 0 0RF cholestyramine-aspartame 4 gram powder in packet 4 g PO DAILY Qty: 30 2RF Rx Instructions: administer w/meal; avoid other meds within 1hr before or 4-6hr after dose budesonide 3 mg capsule,delayed,extend.release 6 mg PO DAILY Qty: 60 3RF diphenoxylate-atropine [Lomotil] 2.5-0.025 mg tablet 2 tab PO BID PRN (Reason: diarrhea) Qty: 120 1RF Primary Care Provider: Edouard Chambers Referrals: Edouard Chambers MD [Primary Care Provider, Family Practice] - 10-14 Days if not better Print Language: Wallisian Disposition Disposition: Home, Self Care
[2025-10-18 10:13] VITALS: BMI 25.8
--- NOTE | 2025-10-18 10:13 | RAD_ITS ---
PROCEDURE: SHOULDER MIN 2 VIEWS 10/18/2025 REASON FOR EXAM: INJURY TECHNIQUE: Procedure Code: RADSH Modality: DX Procedure: SHOULDER MIN 2 VIEWS Laterality: Left COMPARISON: None FINDINGS: Acromioclavicular and glenohumeral joints are intact although there is mild glenohumeral joint space narrowing. No acute fracture or dislocation. Adjacent ribs and lung are unremarkable. RAD/Shoulder min 2 Views IMPRESSION: No acute bony abnormality. Reading Location: [facility]
--- OUTSIDE RECORDS SUMMARY | 2025-10-18 10:13 | XMS RPT_ITS | CCD ---
Author Organization [facility] Care Team Providers Care School Based Therapist Name Role Phone Garfield Kidd Primary Care Provider [phone] Candice Dotson Primary Care Provider Garfield Kidd DO Primary Care Provider [phone] Candice Montes APRN, CNP Primary Care Provider Garfield Kidd DO Primary Care Provider MARTI ALEXANDER, DR MERRILL Primary Care Physician LIVIER JOHNSTON Attending Rhona KIDD DO, DR. MERRILL Primary Care Viral KIDD DO, DR. MERRILL Attending Viral KIDD DO, DR. MERRILL Primary Care Viral KIDD DO, DR. MERRILL Attending Viral KIDD DO, DR. MERRILL Primary Care Viral Kidd DO, Garfield Primary Care Provider Garfield Kidd DO Primary Care Provider [phone] Dr. Jelani Miranda Emergency Provider [phone] Darcy Clifton Primary Care Provider Alis Jeter, Dr. Patel Admit Provider Dr. Amanda Jeter Other Provider Judi, Dr. Kristie Dominguez Attending Provider Dr. Kristie Lau Other Provider Friend, Dr. Castillo Attending Provider Dr. Jelani Miranda Emergency Provider Dr. Darcy Clifton Primary Care Provider Alis Jeter, Dr. Patel Admit Provider Dr. Amanda Jeter Other Provider Korwilian, Dr. Kristie Dominguez Attending Provider Korwilian, Dr. Kristie Dominguez Other Provider Friend, Dr. Castillo Attending Provider Judi, Dr. Kristie Dominguez Referring Provider Elodia, Dr. Taveras Referring Provider Unavailable Trish TAMAYO, Edouard Nuñez Primary Care Provider Trish TAMAYO, Dr. Nunn Primary Care Provider Trish TAMAYO, Dr. Nunn Referring Provider Friend , Dr. Castillo Attending Provider Friend , Dr. Castillo Referring Provider Henok Friend Attending Unavailable Gudla, Dracy Primary Care Unavailable Care Physician, No Primary Primary Care Unava ilable Friend, Jonathan Referring Unavailable Jonathan Bell Attending Unavailable Rg Schmid Attending Unavailable Gudla, Darcy Primary Care Unavailable Valerie Freitas Consulting Unavailable Trish, Edouard Primary Care Unavailable Amanda Jeter Attending Unavailable Valerie Freitas L Admitting Unavailable Steven Bustos Consulting Unavailable Amanda Jeter Consulting Unavailable Gudla, Darcy Primary Care Unavailable Gudla, Darcy Referring Unavailable Jonathan Bell Attending Unavailable Care Physician, No Primary Primary Care Unava ilable Guananda, Darcy Referring Unavailable Jonathan Bell Attending Unavailable Care Physician, No Primary Primary Care Unava ilable Care Physician, No Primary Referring Unava ilable Susan Morales Attending Unavailable Trish, Edouard Primary Care Unavailable Care Physician, No Primary Referring Unava ilable Friend, Jonathan Attending Unavailable Valerie Freitas Attending Unavailable Chambers, Edouard Primary Care Unavailable Sibilia, Travis V Referring Unavailable Sibilia, Travis V Attending Unavailable Chambers, Eoduard Primary Care Unavailable Friend, Jonathan Referring Unavailable Friend, Jonathan Attending Unavailable Amanda Jeter Attending Unavailable Valerie Freitas L Consulting Unavailable Valerie Freitas L Admitting Unavailable Chambers, Edouard Primary Care Unavailable KitSteven boswell Consulting Unavailable Trish, Edouard Primary Care Unavailable Chambers, Edouard Referring Unavailable FriendJonathan Attending Unavailable Steven Bustos Attending Unavailable QUIRJESSICA Edmondson Attending Unavailable CHAMBERS, EDOUARD Primary Care Unavailable JESSICA QUEZADA Attending Unavailable CHAMBERS, EDOUARD Primary Care Unavailable DWAIN, KAYLEEN Attending Unavailable DWAINKAYLEEN Referring Unavailable CHAMBERS, EDOUARD Primary Care Unavailable DWAIN, KAYLEEN Attending Unavailable CHAMBERS, EDOUARD Primary Care Unavailable DWAIN, KAYLEEN Attending Unavailable CHAMBERS, EDOUARD Primary Care Unavailable DWAIN, KAYLEEN Attending Unavailable CHAMBERS, EDOUARD Primary Care Unavailable Allergies Allergy Classification Reported Allergen(s) Allergy Type Date of Onset Reaction(s) Facility (20 sources) Cephalexin Drug Allergy 8 [facility] Work Phone: (7 sources) Penicillin G Drug Allergy 8 [facility] Work Phone: (7 sources) Penicillins Propensity to adverse reactions to drug 8 [facility] Work Phone: (2 sources) Penicillin; Translations: [penicillin] Drug Allergy [facility] (20 sources) Penicillins Drug Intolerance 8 [facility] (6 sources) Penicillins Allergy to substance 4 NEEDS FOLLOW-UP [facility] (1 source) Lactose Drug Allergy 4 severe diarrhea [facility] Comment on above: all milk products (1 source) Lactose Drug Allergy 4 [facility] Repository (1 source) Penicillins Drug allergy (disorder) 4 [facility] Repository Medications Current Medications Medication Drug Class(es) Dates Sig (Normalized) Sig (Original) acetaminophen 500 mg oral tablet (20 sources) Start: 01-29-2024 take 2 tablets by mouth every eight hours Acetaminophen 500 mg Tablet Active 1000 mg PO EVERY 8 HOURS 0 January 29, 2024 12:00am Start: 01-29-2024 take 1000 mg by mout h every eight hours Acetaminophen Active 1000 MG PO EVERY 8 HOURS 0 January 29, 2024 12:00am take 2 tablets by mo uth three times daily acetaminophen (Tylenol) 500 MG tablet Take 1,000 mg by mouth 3 times daily. Active Acidophilus-Pectin, [place] 25 million cell -100 mg Tablet (1 source) Start: 01-29-2024 take 1 tablet by mouth twice daily Acidophilus-Pectin, [place] 25 million cell -100 mg Tablet Active 1 {tbl} PO TWICE A DAY 0 January 29, 2024 12:00am albuterol 0.83 mg/ml inhalation solution (11 sources) beta2-Adrenergic Agonist albuterol (2.5 MG/3ML) 0.083% nebulizer solution Take by nebulization every 6 hours as needed for wheezing. Active albuterol 0.833 mg/ml / ipratropium bromide 0.167 mg/ml inhalation solution (1 source) Anticholinergic, beta2-Adrenergic Agonist Start: 08-26-2024 take 1 mL by inhalation every six hours Ipratropium-Albuterol 0.5 mg-3 mg(2.5 mg base)/3 mL Solution For Nebulization Active 3 mL INHALATION EVERY 6 HOURS 0 August 26, 2024 12:00am albuterol MDI (90 mcg/inh) CFC free inhalation aerosol (2 sources) Start: 10-07-2021 take 2 puff(s) by inhalation every four hours as needed for wheezing albuterol MDI (90 mcg/inh) CFC free inhalation aerosol 2 puff(s), Inhalation, q4h, PRN as needed for wheezing, # 18 gram(s), 0 Refill(s), Pharmacy: [facility], Encounter by telehealth for suspected COVID-19, 163, cm, 10/07/21 8:59:00 EST, Height, kg, 10/07/21 8:59:00 EST, Dosing Weight Start Date: 10/07/21 Status: Ordered alendronic acid 70 mg oral tablet (20 sources) Bisphosphonate Start: 01-12-2024 End: 01-29-2024 take 1 tablet by mouth every week Alendronate 70 mg tablet Active 70 mg PO EVERY WEEK January 12, 2024 1:00am Start: 01-12-2024 Alendronate Ac tive MG PO January 12, 2024 12:00am Start: 09-21-2022 Fosamax 70 mg oral tablet Dose : 70 mg = 1 tab(s), Oral, qWeek, # 13 tab(s), 3 Refill(s), Pharmacy: [facility], 161.5, cm, 05/26/22 7:57:00 EDT, Height, kg, 09/07/22 15:09:00 EDT, Dosing Weight Start Date: 09/21/22 Status: Ordered amLODIPine 5 mg oral tablet (11 sources) Dihydropyridine Calcium Channel Ashley Start: 03-18-2025 End: 03-18-2026 take 1 tablet by mouth once daily amLODIPine (Norvasc) 5 MG tablet Take 1 tablet (5 mg) by mouth daily. 03/18/2025 03/18/2026 Active take 1 tablet by mouth once marco y amLODIPine (Norvasc) 5 MG tablet Take 5 mg by mouth daily. 0 Active amylase 082396 unt / lipase 15000 unt / protease [id number] unt delayed release oral capsule (15 sources) Start: 06-14-2024 Creon [id number] 4000 units capsule delayed-release particles capsule Take 1 capsule by mouth in the morning and 1 capsule at noon and 1 capsule in the evening. Take with meals. 06/14/2024 Active Start: 04-07-2024 take [id number] ca psules by mouth three times daily at mealtime Kulocd-Wonwqsbd-Qjlimvh (Creon) 36,000-114,000- 180,000 unit capsule,delayed release(DR/EC) Active 1 NMA PO THREE TIMES A DAY April 07, 2024 12:00am administer with meals and/or snacks ascorbic acid 500 mg oral tablet (19 sources) Vitamin C Start: 01-29-2024 take 1 tablet by mouth twice daily at mealtime Ascorbic Acid (Vitamin C) 500 mg Tablet Active 500 mg PO TWICE DAILY WITH MEALS 0 January 29, 2024 12:00am End: 06-16-2025 take 1 tablet by mouth twice daily ascorbic acid (Vitamin C) 500 MG tablet Take 500 mg by mouth 2 times daily. 06/16/2025 Discontinued (Med list cleanup) atorvastatin 20 mg oral tablet (20 sources) HMG-CoA Reductase Inhibitor Start: 01-12-2024 Atorvastatin Active MG January 12, 2024 12:00am Start: 11-24-2022 take 1 tablet by diana th at bedtime Atorvastatin 20 mg tablet Active 20 mg PO AT BEDTIME January 12, 2024 1:00am atropine sulfate 0.025 mg / diphenoxylate hydrochloride 2.5 mg oral tablet (1 source) Anticholinergic, Cholinergic Muscarinic Antagonist, Antidiarrheal Start: 07-10-2024 Diphenoxylate-Atropine (Lomotil) 2.5-0.025 mg tablet Active 2 {tbl} PO TWICE A DAY as needed for diarrhea 120 July 10, 2024 12:00am Breo Ellipta 100 mcg-25 mcg/inh inhalation powder (2 sources) Start: 04-13-2021 take 1 dose by inhalation once daily Breo Ellipta 100 mcg-25 mcg/inh inhalation powder Dose = 1 puff(s), Inhalation, Daily, 0 Refill(s) Start Date: 04/13/21 Status: Ordered budesonide 3 mg delayed release oral capsule (17 sources) Corticosteroid Start: 03-31-2024 take 2 capsules by mouth once daily Budesonide 3 mg capsule,delayed,extend.r elease Active 6 mg PO DAILY 60 March 31, 2024 12:00am take 1 capsule by mo ut once daily, then take 1 capsule by mouth every twenty-four hours budesonide ER (Ortikos) 6 MG 24 hr capsule Take 6 mg by mouth daily. Active Cholestyramine-Aspartame 4 gram powder in packet (1 source) Start: 03-31-2024 take 1 dose by mouth once daily Cholestyramine-Aspartame 4 gram powder in packet Active 4 g PO DAILY March 31, 2024 12:00am administer w/meal; avoid other meds within 1hr before or 4-6hr after dose Clobetasol (20 sources) Corticosteroid Start: 05-27-2021 clobetasol 0.05% topical cream Apply 1 sophia, Topical, BID, # 15 gram(s), 0 Refill(s), Pharmacy: [facility]/pharmacy #[id number], Cream, 163.5, cm, 05/27/21 14:10:00 EDT, Height, 54.7, kg, 05/27/21 14:10:00 EDT, Dosing Weight Start Date: 05/27/21 Status: Ordered End: 06-16-2025 clobetasol (Temovate) 0.05 % cream Apply topically 2 times daily. 06/16/2025 Discontinued (Med list cleanup) cloNIDine hydrochloride 0.1 mg oral tablet (20 sources) Central alpha-2 Adrenergic Agonist Start: 01-29-2024 take 1 tablet by mouth three times daily Clonidine Hcl 0.1 mg Tablet Active 0.1 mg PO THREE TIMES A DAY 0 January 29, 2024 12:00am Start: 01-12-2024 End: 01-29-2024 take 1 tablet by mouth twice daily Clonidine Hcl 0.1 mg tablet Discontinued 0.1 mg PO TWICE A DAY January 12, 2024 1:00am January 29, 2024 5:42pm take 2 tablets by mo [facility] three times daily cloNIDine (Catapres) 0.1 MG tablet Take 0.2 mg by mouth 3 times daily. Active 24 hr dilTIAZem hydrochloride 360 mg extended release oral capsule (20 sources) Calcium Channel Ashley Start: 03-30-2022 take 1 capsule by mouth every hour, then take 1 capsule by mouth once daily dilTIAZem 360 mg/24 hours oral capsule, extended release Dose : 360 mg = 1 cap(s), Oral, qDay, # 90 cap(s), 3 Refill(s), Pharmacy: [facility], 163, cm, 12/19/21 16:07:00 EST, Height, kg, 12/19/21 15:58:00 EST, Dosing Weight Start Date: 03/30/22 Status: Ordered Start: 04-05-2021 End: 07-24-2023 take 1 capsule by mouth every twenty-four hours in the morning dilTIAZem ER (Tiazac) 360 MG 24 hr capsule Take 1 capsule by mouth in the morning. 0 04/05/2021 07/24/2023 Discontinued (Therapy completed) Start: 04-05-2021 take 1 capsule by mo ut once daily dilTIAZem (CARDIZEM CD) 360 MG extended release capsule TAKE 1 CAPSULE BY MOUTH EVERY DAY 30 capsule 5 04/05/2021 Active Start: 01-05-2021 take 1 capsule by mo uth once daily dilTIAZem (CARDIZEM CD) 360 MG extended release capsule TAKE 1 CAPSULE BY MOUTH EVERY DAY 30 capsule 2 01/05/2021 Active Start: 08-25-2020 take 1 capsule by mo uth once daily dilTIAZem (TIAZAC) 360 MG extended release capsule TAKE ONE CAPSULE BY MOUTH EVERY DAY 30 capsule 5 08/25/2020 Active Start: 02-23-2020 take 1 capsule by mo ut once daily dilTIAZem (TIAZAC) 360 MG extended release capsule TAKE ONE CAPSULE BY MOUTH EVERY DAY 30 capsule 5 02/23/2020 Active Start: 08-25-2019 take 1 capsule by mo [facility] once daily diltiazem (TIAZAC) 360 MG extended release capsule TAKE ONE CAPSULE BY MOUTH EVERY DAY 30 capsule 5 08/25/2019 Active donepezil hydrochloride 10 m g oral tablet (20 sources) Start: 01-12-2024 Donepezil Acti ve MG January 12, 2024 12:00am Start: 07-07-2022 End: 06-16-2025 take 1 tablet by mouth once daily donepezil (Aricept) 10 MG tablet Indications: 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 behavioral disturbance, psychotic disturbance, mood disturbance, or anxiety (HCC) Take 1 tablet (10 mg) by mouth Nightly. 90 tablet 3 06/16/2025 Active Start: 01-07-2021 take 1 tablet by diana th once daily donepezil (ARICEPT) 10 MG tablet Indications: Late onset Alzheimer's disease without behavioral disturbance (HCC) Take 1 tablet by mouth nightly 90 tablet 0 01/07/2021 Active Start: 07-11-2018 take 1 tablet by diana th once daily donepezil (ARICEPT) 10 MG tablet Indications: Late onset Alzheimer's disease without behavioral disturbance (HCC) Take 1 tablet by mouth daily 90 tablet 1 07/11/2018 Active fluticasone propionate 0.05 mg/actuat metered dose nasal spray (10 sources) Corticosteroid Start: 10-07-2021 take 1 dose nasal route twice daily Flonase 50 mcg/inh nasal spray Dose = 1 spray(s), Nostril, each, BID, # 16 gram(s), 0 Refill(s), Pharmacy: [facility], Encounter by telehealth for suspected COVID-19, 163, cm, 10/07/21 8:59:00 EST, Height, kg, 10/07/21 8:59:00 EST, Dosing Weight Start Date: 10/07/21 Status: Ordered End: 04-08-2024 take 1 spray(s) nasal route once daily fluticasone (Flonase) 50 MCG/ACT nasal spray Administer 1 spray into each nostril daily. Shake gently. Before first use, prime pump. After use, clean tip and replace cap. 0 04/08/2024 Discontinued (Therapy completed) Gemtesa 75 MG tablet (14 sources) Start: 06-20-2024 take 1 tablet by mouth once daily Gemtesa 75 MG tablet Take 1 tablet by mouth daily. 06/20/2024 Active 12 hr guaiFENesin 1200 mg extended release oral tablet (1 source) Start: 08-26-2024 take 1 tablet by mouth twice daily, then take 1 tablet by mouth every twelve hours Guaifenesin (Mucus Relief Er) 1,200 mg Tablet Extended Release 12hr Active 1200 mg PO TWICE A DAY 01 06August 26, 2024 12:00am hydrALAZINE hydrochloride 50 mg oral tablet (14 sources) Arteriolar Vasodilator Start: 01-27-2025 take 1 tablet by mouth three times daily Hydralazine 50 mg tablet Active 50 mg PO THREE TIMES A DAY January 27, 2025 12:00am End: 12-29-2024 hydrALAZINE (Apresoline) 10 MG tablet Take by mouth. 12/29/2024 Discontinued (Dose adjustment) hydroCHLOROthiazide 12.5 mg oral capsule (20 sources) Thiazide Diuretic Start: 07-18-2022 End: 11-23-2023 hydroCHLOROthiazide 12.5 mg oral capsule Dose : 12.5 mg = 1 cap(s), Oral, qDay, # 90 cap(s), 3 Refill(s), Pharmacy: [facility], 161.5, cm, 05/26/22 7:57:00 EDT, Height, kg, 05/26/22 7:57:00 EDT, Dosing Weight Start Date: 07/18/22 Status: Ordered Incruse Ellipta 62.5 mcg/inh inhalation powder (2 sources) Start: 04-13-2021 take 1 dose by inhalation once daily Incruse Ellipta 62.5 mcg/inh inhalation powder Dose = 1 puff(s), Inhalation, qDay, 0 Refill(s) Start Date: 04/13/21 Status: Ordered lactobacillus acidophilus 16 mg oral capsule (17 sources) take 1 capsule by mouth once daily Lactobacillus (Acidophilus) 100 MG capsule Take 100 mg by mouth daily. Active lactobacillus acidophilus [id number] unt / pectin 100 mg oral tablet (3 sources) Start: 01-29-2024 take 1 tablet by mouth twice daily Acidophilus-Pectin, [place] Active 1 TABLET PO TWICE A DAY 0 January 29, 2024 12:00am lidocaine 0.05 mg/mg medicated patch (9 sources) Antiarrhythmic , Amide Local Anesthetic Start: 05-26-2022 End: 03-19-2024 lidocaine 5% topical patch Apply 1 patch(es), Transdermal, Daily, # 30 patch(es), 0 Refill(s), Pharmacy: [facility], 161.5, cm, 05/26/22 7:57:00 EDT, Height, 54.7 Start Date: 05/26/22 Status: Ordered Start: 05-13-2022 End: 06-12-2022 apply 1 dose transdermal route once daily lidocaine 4 % external patch Place 1 patch onto the skin daily 30 patch 0 05/13/2022 06/12/2022 Active loratadine 10 mg oral tablet (20 sources) Start: 01-12-2024 End: 06-16-2025 take 1 tablet by mouth once daily Loratadine (Loradamed) 10 mg tablet Active 10 mg PO DAILY January 12, 2024 1:00am losartan potassium 100 mg oral tablet (20 sources) Angiotensin 2 Receptor Ashley Start: 01-29-2024 take 1 tablet by mouth once daily Losartan 100 mg Tablet Active 100 mg PO DAILY 0 January 29, 2024 12:00am melatonin 10 mg sublingual tablet (20 sources) Start: 01-29-2024 take 1 tablet by mouth at bedtime Melatonin 10 mg Tablet, Sublingual Active 10 mg PO AT BEDTIME 0 January 29, 2024 12:00am take 1 capsule by mouth once lucas ly Melatonin 10 MG capsule Take 10 mg by mouth Nightly. Active montelukast 10 mg oral tablet (20 sources) Leukotriene Receptor Antagonist Start: 01-12-2024 Montelukast Active M G January 12, 2024 12:00am Start: 07-18-2022 take 1 tablet by diana th once daily Montelukast 10 mg tablet Active 10 mg PO DAILY January 12, 2024 1:00am Oyster Shell Calcium with Vitamin D 500 mg-5 mcg (200 intl units) oral tablet (2 sources) Start: 2021 take 1 tablet by mouth twice daily Oyster Shell Calcium with Vitamin D 500 mg-5 mcg (200 intl units) oral tablet Dose = 1 tab(s), Oral, BID, # 180 tab(s), 3 Refill(s), Pharmacy: [facility], 163.5, cm, 05/27/21 14:10:00 EDT, Height, kg, 05/27/21 14:10:00 EDT, Dosing Weight Start Date: 08/18/21 Status: Ordered pantoprazole 40 mg delayed release oral tablet (20 sources) Proton Pump Inhibitor Start: 01-17-2024 take 1 tablet by mouth twice daily Pantoprazole 40 mg tablet,delayed release (DR/EC) Active 40 mg PO TWICE A DAY 60 January 17, 2024 1:00am take 1 tablet by diana th once daily before breakfast pantoprazole (ProtoNix) 40 MG EC tablet Take 40 mg by mouth every morning (before breakfast). Do not crush, chew, or split. Active polyethylene glycol 3350 13268 mg powder for oral solution (1 source) Osmotic Laxative take 8.5 g by mouth once daily polyethylene glycol (GLYCOLAX) powder Take 8.5 g by mouth daily 0 Active polysaccharide iron complex 150 mg oral capsule (4 sources) Start: Polysaccharide Iron Complex (Ferrex 150) 150 mg iron Capsule Active 150 mg PO TWICE A DAY 0 January 29, 2024 12:00am potassium chloride 1.33 meq/ml oral solution (20 sources) Start: take 40 mEq by mouth twice daily Potassium Chloride 20 mEq/15 mL liquid Active 40 meq PO TWICE A DAY August 23, 2024 12:00am Start: 06-15-2024 take 20 mEq by mouth twice daily Potassium Chloride 20 MEQ/15ML (10%) solution Take 20 mEq by mouth 2 times daily. 06/15/2024 Active Start: 01-12-2024 End: 08-23-2024 take 1 tablet by mouth once daily Potassium Chloride 20 mEq tablet extended release Discontinued 20 meq PO DAILY January 12, 2024 1:00am August 23, 2024 8:10pm Start: 09-26-2022 potassium chlo ride 20 mEq oral tablet, extended release Dose : 20 mEq = 1 tab(s), Oral, qDay, Take with food, # 30 tab(s), 5 Refill(s), Pharmacy: [facility], 161.5, cm, 05/26/22 7:57:00 EDT, Height, kg, 09/07/22 15:09:00 EDT, Dosing Weight Start Date: 09/26/22 Status: Ordered Start: 08-30-2021 End: 07-01-2024 take 1 tablet by mouth twice daily potassium chloride CR (Klor-Con M20) 20 MEQ ER tablet Take 1 tablet by mouth 2 times daily. 08/30/2021 07/01/2024 Discontinued (Alternate therapy) Start: 08-30-2021 take 1 tablet by diana th in the morning potassium chloride CR (Klor-Con M20) 20 MEQ ER tablet Take 1 tablet by mouth in the morning. 0 08/30/2021 Active Start: 04-13-2021 take 20 mEq by mouth once marco y POTASSIUM CHLORIDE ER PO Take 20 mEq by mouth daily 0 04/13/2021 Active Start: 08-19-2018 take 1 tablet by diana th once daily potassium chloride (KLOR-CON M) 10 MEQ extended release tablet Take 1 tablet by mouth daily 30 tablet 5 08/19/2018 Active take 1 tablet by diana th once daily, then take 1 tablet by mouth potassium chloride (KLOR-CON M) 20 MEQ extended release tablet Take 20 mEq by mouth daily 0 Active primidone 50 mg oral tablet (20 sources) Anti-epileptic Agent Start: 01-12-2024 take 1 tablet by mouth once daily Primidone 50 mg tablet Active 50 mg PO DAILY January 12, 2024 1:00am 24 hr propranolol hydrochloride 80 mg extended release oral capsule (20 sources) beta-Adrenergic Ashley Start: 01-12-2024 take 1 capsule by mouth twice daily Propranolol 80 mg capsule,extended release 24 hr Active 80 mg PO TWICE A DAY January 12, 2024 1:00am Start: 01-12-2024 Propranolol Ac tive MG PO January 12, 2024 12:00am Start: 07-18-2022 propranolol 80 mg oral capsule, extended release Dose : 80 mg = 1 cap(s), Oral, BID, hold for sbp Start Date: 07/18/22 Status: Ordered Start: 11-25-2020 take 1 capsule by mo [facility] every twenty-four hours in the morning propranolol XL (Innopran XL) 80 MG 24 hr capsule Take 1 capsule by mouth in the morning and 1 capsule before bedtime. 0 11/25/2020 Active Start: 11-25-2020 take 1 capsule by [facility] twice daily propranolol (INDERAL LA) 80 MG extended release capsule Take 1 capsule by mouth 2 times daily 60 capsule 5 11/25/2020 Active take 1 tablet by diana twice daily propranolol (Inderal) 80 MG tablet Take 80 mg by mouth 2 times daily. Active take 1 capsule by [facility] twice daily propranolol (INDERAL LA) 80 MG extended release capsule Take 80 mg by mouth 2 times daily 0 Active 24 hr venlafaxine 150 mg extended release oral capsule (20 sources) Serotonin and Norepinephrine Reuptake Inhibitor Start: 01-12-2024 take 1 capsule by mouth once daily Venlafaxine 150 mg capsule,extended release 24hr Active 150 mg PO DAILY January 12, 2024 1:00am Start: 01-12-2024 Venlafaxine Ac tive MG PO January 12, 2024 12:00am Start: 07-18-2022 venlafaxine 15 0 mg oral capsule, extended release Dose : 150 mg = 1 cap(s), Oral, qDayM, # 90 cap(s), 3 Refill(s), Pharmacy: [facility], 161.5, cm, 05/26/22 7:57:00 EDT, Height, kg, 05/26/22 7:57:00 EDT, Dosing Weight Start Date: 07/18/22 Status: Ordered take 1 capsule by [facility] once daily venlafaxine (EFFEXOR XR) 150 MG extended release capsule Take 150 mg by mouth daily 0 Active Vibegron (1 source) Start: 08-23-2024 take 1 tablet by diana once daily Vibegron (Gemtesa) 75 mg tablet Active 75 mg PO DAILY August 23, 2024 12:00am Completed/Discontinued Medications Medication Drug Class(es) Dates Sig (Normalized) Sig (Original) aspirin 81 mg chewable tablet (20 sources) Platelet Aggregation Inhibitor, Nonsteroidal Anti-inflammatory Drug Start: 01-12-2024 End: 01-29-2024 Aspirin 81 mg tablet,chewable Discontinued 1 {tbl} PO DAILY January 12, 2024 1:00am January 29, 2024 5:42pm On Hold: Resume on 01/24/24. Please hold aspirin for the next seven days due to GI bleed Start: 08-29-2022 take 1 tablet by diana th once daily aspirin 81 mg oral tablet, chewable Dose : 81 mg =, Oral, qDay, # 90 tab(s), 3 Refill(s), Pharmacy: [facility], 161.5, cm, 05/26/22 7:57:00 EDT, Height, kg, 05/26/22 7:57:00 EDT, Dosing Weight Start Date: 08/29/22 Status: Ordered Start: 12-31-2020 take 1 tablet by diana th in the morning aspirin 81 MG EC tablet Take 1 tablet by mouth in the morning. 12/31/2020 Active Start: 05-03-2018 take 1 tablet by diana th twice daily at mealtime aspirin 81 MG chewable tablet Take 1 tablet by mouth 2 times daily (with meals) 30 tablet 3 05/03/2018 Active calcium carbonate 1250 mg / cholecalciferol 600 unt oral tablet (20 sources) Vitamin D Start: 01-12-2024 End: 01-27-2025 Calcium Carbonate-Vitamin D3 500 mg-15 mcg (600 unit) tablet Discontinued 1 {tbl} PO TWICE A DAY January 12, 2024 1:00am January 27, 2025 8:28am Start: 01-12-2024 take 1 tablet by diana th twice daily Calcium Carbonate-Vitamin D3 Active 1 TABLET PO TWICE A DAY January 12, 2024 1:00am Start: 01-12-2024 Calcium Carbon ate-Vitamin D3 Active TABLET PO January 12, 2024 12:00am Start: 07-07-2022 take 1 tablet by diana th twice daily calcium (as carbonate)-vitamin D 500 mg-15 mcg (600 intl units) oral tablet Dose = 1 tab(s), Oral, BID, alternative to oyst grant on backorder, # 180 tab(s), 6 Refill(s), Pharmacy: [facility], 161.5, cm, 05/26/22 7:57:00 EDT, Height, kg, 05/26/22 7:57:00 EDT, Dosing Weight Start Date: 07/07/22 Status: Ordered End: 12-29-2024 take 1 tablet by mouth once daily Calcium Carb-Cholecalciferol (Calcium+D3) 600-20 MG-MCG tablet Take 1 tablet by mouth daily. 12/29/2024 Discontinued (Discontinued by another clinician) cefuroxime 250 mg oral tablet (1 source) Cephalosporin Antibacterial Start: 08-26-2024 End: 01-27-2025 take 2 tablets by mouth every twelve hours Cefuroxime Axetil 250 mg Tablet Discontinued 500 mg PO EVERY 12 HOURS 20 August 26, 2024 12:00am January 27, 2025 8:28am cholestyramine resin 4000 mg powder for oral suspension (14 sources) Bile Acid Sequestrant End: 06-16-2025 cholestyramine (Questran) 4 g packet Take 1 packet by mouth in the morning and 1 packet at noon and 1 packet in the evening. Take with meals. 06/16/2025 Discontinued (Med list cleanup) colestipol hydrochloride 1000 mg oral tablet (3 sources) Bile Acid Sequestrant Start: 03-17-2024 End: 03-31-2024 Colestipol 1 gram tablet Discontinued 1 g PO TWICE A DAY 60 March 17, 2024 12:00am March 31, 2024 9:10am ferrous sulfate 325 mg oral tablet (4 sources) Start: 01-17-2024 End: 01-29-2024 take 1 tablet by mouth twice daily Ferrous Sulfate 325 mg (65 mg iron) tablet Discontinued 325 mg PO TWICE A DAY 60 January 17, 2024 1:00am January 29, 2024 5:42pm fluconazole 150 mg oral tablet (2 sources) Azole Antifungal Start: 11-24-2022 End: 11-24-2022 Diflucan 150 mg oral tablet Dose : 150 mg = 1 tab(s), Oral, qDay, # 1 tab(s), 0 Refill(s), Pharmacy: [facility]/pharmacy #[id number], 161.5, cm, 11/24/22 14:22:00 EST, Height, 56.6 Start Date: 11/24/22 Stop Date: 11/24/22 Status: Ordered Fluticasone-Umeclidi n-Vilanter (20 sources) Anticholinergic, Corticosteroid, beta2-Adrenergic Agonist Start: 01-12-2024 End: 08-23-2024 Fluticasone-Umeclid in-Vilanter (Trelegy Ellipta) 100-62.5-25 mcg blister with device Discontinued 1 NMA INHALATION DAILY January 12, 2024 1:00am August 23, 2024 8:14pm Start: 01-12-2024 Fluticasone-Um eclidin-Vilanter (Trelegy Ellipta) 100-62.5-25 mcg blister with device Active 1 INH INHALATION DAILY January 12, 2024 1:00am Start: 01-12-2024 Fluticasone-Um eclidin-Vilanter (Trelegy Ellipta) 100-62.5-25 mcg blister with device Active 1 INH INHALATION DAILY January 12, 2024 12:00am End: 04-08-2024 Ccriukcvkak-Sybnukkqp-Yslvtt (Trelegy Ellipta) 100-62.5-25 MCG/ACT aerosol powder Inhale. Active 30 actuat fluticasone furoate 0.1 mg/actuat / vilanterol 0.025 mg/actuat dry powder inhaler (20 sources) Corticosteroid, beta2-Adrenergic Agonist Start: 01-12-2024 End: 01-29-2024 Fluticasone Furoate-Vilanterol (Breo Ellipta) 100-25 mcg/dose blister with device Discontinued 1 NMA INHALATION Q24H January 12, 2024 1:00am January 29, 2024 5:43pm Start: 01-12-2024 End: 01-29-2024 Fluticasone Furoate-Vilanter ol (Breo Ellipta) 100-25 mcg/dose blister with device Discontinued 1 INH INHALATION Q24H January 12, 2024 1:00am January 29, 2024 5:43pm Start: 01-12-2024 Fluticasone Fu roate-Vilanterol [Fluticasone Furoate 100 Mcg-Vilanterol 25 Mcg/Dose Inhalation Powder] (Fluticasone Furoate 100 Mcg-Vilanterol 25 ) 100-25 mcg/dose blister with device Active INHALATION January 12, 2024 12:00am End: 04-08-2024 take 1 puff(s) by inhalation in the morning fluticasone-vilanterol (BREO ELIPTA) 100-25 MCG/INH inhaler Inhale 1 puff in the morning. 0 04/08/2024 Discontinued (Therapy completed) take 1 puff(s) by in halation once daily fluticasone-vilanterol (BREO ELLIPTA) 100-25 MCG/INH AEPB inhaler Inhale 1 puff into the lungs daily 0 Active iopamidol (ISOVUE-370) 76 % injection 150 mL (1 source) Start: 11-21-2020 End: 11-21-2020 iopamidol (ISOVUE-370) 76 % injection 150 mL iron polysaccharides (Nu-Iron,Niferex) 150 MG capsule (6 sources) End: 12-29-2024 take 1 capsule by mouth in the morning iron polysaccharides (Nu-Iron,Niferex) 150 MG capsule Take 150 mg by mouth in the morning and 150 mg in the evening. 12/29/2024 Discontinued (Discontinued by another clinician) take 1 capsule by mo uth in the morning iron polysaccharides (Nu-Iron,Niferex) 1 50 MG capsule Take 150 mg by mouth in the morning and 150 mg in the evening. Active take 1 capsule by mo uth in the morning iron polysaccharides (Nu-Iron,Niferex) 1 50 MG capsule Take 150 mg by mouth in the morning and 150 mg in the evening. 0 Active take 1 capsule by mouth once lucas ly iron polysaccharides (Nu-Iron,Niferex) 150 MG capsule Take 150 mg by mouth daily. 0 Active lisinopril 40 mg oral tablet (20 sources) Angiotensin Converting Enzyme Inhibitor Start: 01-12-2024 Lisinopril Active MG January 12, 2024 12:00am Start: 04-13-2021 End: 03-19-2024 take 1 tablet by mouth once daily Lisinopril 40 mg tablet Discontinued 40 mg PO DAILY January 12, 2024 1:00am January 29, 2024 5:43pm Start: 11-25-2020 take 1 tablet by diana th once daily lisinopril (PRINIVIL;ZESTRIL) 40 MG tablet Take 1 tablet by mouth daily 30 tablet 5 11/25/2020 Active take 1 tablet by diana th once daily lisinopril (PRINIVIL;ZESTRIL) 40 MG tablet Take 40 mg by mouth daily 0 Active oxybutynin chloride 5 mg oral tablet (20 sources) Cholinergic Muscarinic Antagonist Start: 01-29-2024 End: 01-27-2025 take 2 tablets by mouth at bedtime Oxybutynin Chloride 5 mg Tablet Discontinued 10 mg PO AT BEDTIME 0 January 29, 2024 12:00am January 27, 2025 8:27am Start: 01-29-2024 take 10 mg by mouth at bedtime Oxybutynin Chloride Active 10 MG PO AT BEDTIME 0 January 29, 2024 12:00am Start: 01-12-2024 End: 01-29-2024 take 1 tablet by mouth every twenty-four hours at bedtime Oxybutynin Chloride 10 mg tablet extended release 24hr Discontinued 10 mg PO AT BEDTIME January 12, 2024 1:00am January 29, 2024 5:43pm Start: 01-12-2024 Oxybutynin Chl oride Active MG PO January 12, 2024 12:00am Start: 09-26-2022 take 1 tablet by diana th every hour, then take 1 tablet by mouth once daily oxybutynin 10 mg/24 hr oral tablet, extended release Dose : 10 mg = 1 tab(s), Oral, qDay, # 30 tab(s), 5 Refill(s), Pharmacy: [facility], 161.5, cm, 05/26/22 7:57:00 EDT, Height, kg, 09/07/22 15:09:00 EDT, Dosing Weight Start Date: 09/26/22 Status: Ordered End: 07-01-2024 take 10 mg by mouth once daily OXYBUTYNIN CHLORIDE PO Take 10 mg by mouth daily. 07/01/2024 Discontinued (Alternate therapy) take 1 tablet by diana th in the morning oxybutynin (Ditropan) 5 MG tablet Take 5 mg by mouth in the morning. 0 Active predniSONE 20 mg oral tablet (1 source) Start: 08-26-2024 End: 01-27-2025 take 2 tablets by mouth once daily Prednisone 20 mg tablet Discontinued 40 mg PO DAILY 08 23August 26, 2024 12:00am January 27, 2025 8:27am regadenoson (Lexiscan) injection 0.4 mg (2 sources) Start: 01-16-2023 End: 01-16-2023 regadenoson (Lexiscan) injection 0.4 mg 50 ml sodium chloride 9 mg/ml injection (1 source) Start: 11-21-2020 End: 11-21-2020 0.9 % sodium chloride bolus sucralfate 1000 mg oral tablet (5 sources) Aluminum Complex Start: 01-17-2024 End: 04-07-2024 take 1 tablet by mouth 1 hour(s) before mealtime Sucralfate 1 gram Tablet Discontinued 1 g PO ONE HOURS BEFORE MEALS & BED 90 January 17, 2024 1:00am April 07, 2024 10:42am technetium Tc-99m sestamibi (Cardiolite) radio-isotope injection 20 millicurie (2 sources) Start: 01-16-2023 End: 01-16-2023 technetium Tc-99m sestamibi (Cardiolite) radio-isotope injection 20 millicurie technetium Tc-99m sestamibi (Cardiolite) radio-isotope injection 6 millicurie (2 sources) Start: 01-16-2023 End: 01-16-2023 technetium Tc-99m sestamibi (Cardiolite) radio-isotope injection 6 millicurie torsemide 20 mg oral tablet (14 sources) Loop Diuretic Start: 01-12-2024 End: 04-08-2024 take 1 tablet by mouth once daily Torsemide 20 mg tablet Discontinued 20 mg PO DAILY January 12, 2024 1:00am April 07, 2024 10:43am 7 actuat umeclidinium 0.0625 mg/actuat dry powder inhaler (20 sources) Anticholinergic End: 03-19-2024 take 1 puff(s) by inhalation in the morning umeclidinium (Incruse Ellipta) 62.5 MCG/INH inhalation Inhale 1 puff in the morning. 0 03/19/2024 Discontinued take 1 puff(s) by inhalation onc e daily Umeclidinium [place] 62.5 MCG/INH AEPB Inhale 1 puff into the lungs daily 0 Active Problems Active Problems Problem Classification Problem Date Documented Da te Episodic/Chronic Acute and unspecified renal failure (11 sources) Acute renal failure syndrome; Translations: [Acute kidney failure, unspecified] 01-12-2024 Episodic Chronic obstructive pulmonary disease and bronchiectasis (20 sources) Chronic obstructive lung disease; Translations: [Chronic obstructive pulmonary disease, unspecified] Onset: 1 12-31-2020 Chronic Coagulation and hemorrhagic disorders (6 sources) Thrombocytopenic disorder; Translations: [Thrombocytopenia, unspecified] Onset: 4 02-21-2024 Chronic Coronary atherosclerosis and other heart disease (20 sources) Coronary arteriosclerosis; Translations: [Atherosclerotic heart disease of [place] coronary artery without angina pectoris] Onset: 1 07-05-2018 Chronic Delirium, dementia, and amnestic and other cognitive disorders (20 sources) Alzheimer's disease; Translations: [Alzheimer's disease, unspecified] Onset: 5 01-17-2024 Chronic Diseases of white blood cells (2 sources) Elevated white blood cell count, unspecified; Translations: [Elevated white blood cell count, unspecified] Onset: 3 Chronic Disorders of lipid metabolism (20 sources) Hyperlipidemia; Translations: [Hyperlipidemia, unspecified] Onset: 8 07-05-2018 Chronic E Codes: Fall (12 sources) Fall; Translations: [Unspecified fall, initial encounter] Resolved: 8 Episodic Essential hypertension (20 sources) Hypertensive disorder; Translations: [Essential (primary) hypertension] Onset: 8 07-05-2018 Chronic Fluid and electrolyte disorders (10 sources) Hypokalemia; Translations: [Hypokalemia] 01-17-2024 Episodic Fracture of lower limb (1 source) Closed fracture proximal phalanx, toe ; Translations: [Nondisplaced fracture of proximal phalanx of left lesser toe(s), initial encounter for closed fracture] Episodic Gastroduodenal ulcer (except hemorrhage) (7 sources) Gastric ulcer; Translations: [Gastric ulcer, unspecified as acute or chronic, without hemorrhage or perforation] 01-17-2024 Chronic Heart valve disorders (20 sources) Aortic valve sclerosis; Translations: [Other nonrheumatic aortic valve disorders] Onset: 2 10-03-2022 Chronic Mood disorders (20 sources) Reactive depression (situational); Translations: [Major depressive disorder, single episode, unspecified] Onset: 8 05-01-2018 Chronic Osteoarthritis (9 sources) Osteoarthritis of knee; Translations: [Osteoarthritis] 05-26-2022 Chronic Osteoporosis (20 sources) Osteoporosis; Translations: [Age-related osteoporosis without current pathological fracture] Onset: 2 05-27-2021 Chronic Other connective tissue disease (5 sources) Recurrent falls ; Translations: [Repeated falls] 05-19-2022 Episodic Other diseases of bladder and urethra (4 sources) Overactive bladder; Translations: [Overactive bladder] 01-17-2024 Chronic Other diseases of bladder and urethra (3 sources) Overactive bladder; Translations: [Hypertonicity of bladder] 02-02-2024 Chronic Other fractures (1 source) Closed fracture of single right rib; Translations: [Fracture of one rib, right side, initial encounter for closed fracture] Episodic Other fractures (2 sources) Fracture of rib 05-26-2022 Episodic Other fractures (8 sources) Unspecified fracture of unspecified pubis, initial encounter for closed fracture; Translations: [Closed fracture of single pubic ramus of pelvis] 01-12-2024 Episodic Other fractures (4 sources) Fracture of pelvis; Translations: [Fracture of unspecified parts of lumbosacral spine and pelvis, initial encounter for closed fracture] 01-17-2024 Episodic Other fractures (3 sources) Fracture of unspecified parts of lumbosacral spine and pelvis, initial encounter for closed fracture; Translations: [Closed unspecified fracture of pelvis] 02-02-2024 Episodic Other gastrointestinal disorders (1 source) Irritable bowel syndrome without diarrhea; Translations: [Irritable bowel syndrome without diarrhea] Onset: 4 Chronic Other gastrointestinal disorders (1 source) Constipation, unspecified; Translations: [Constipation, unspecified] Onset: 5 Episodic Other hereditary and degenerative nervous system conditions (20 sources) Essential tremor; Translations: [Essential tremor] Onset: 8 07-05-2018 Chronic Other injuries and conditions due to external causes (1 source) Closed injury of head; Translations: [Unspecified injury of head, initial encounter] Episodic Other lower respiratory disease (1 source) Hypoxia; Translations: [Hypoxemia] 09-03-2024 Episodic Other nervous system disorders (6 sources) Unable to walk; Translations: [Difficulty in walking, not elsewhere classified] 01-12-2024 Chronic Other nervous system disorders (2 sources) Difficulty in walking, not elsewhere classified; Translations: [Difficulty in walking] 01-12-2024 Chronic Other nervous system disorders (4 sources) Tremor; Translations: [Tremor, unspecified] 01-17-2024 Episodic Other nervous system disorders (3 sources) Tremor, unspecified; Translations: [Abnormal involuntary movements] 02-02-2024 Episodic Other skin disorders (2 sources) Lesion of skin of face; Translations: [Disorder of the skin and subcutaneous tissue, unspecified] 12-23-2024 Episodic Other upper respiratory disease (4 sources) Allergic rhinitis; Translations: [Allergic rhinitis, unspecified] 01-17-2024 Chronic Other upper respiratory disease (3 sources) Allergic rhinitis, unspecified; Translations: [Allergic rhinitis, cause unspecified] 02-02-2024 Chronic Residual codes; unclassified (4 sources) Edema; Translations: [Edema, unspecified] 11-13-2023 Episodic Unclassified (10 sources) Patient encounter status; Translations: [Palliative care encounter] Onset: 8 05-01-2018 Unclassified (2 sources) Non-smoker 05-26-2022 Unclassified (1 source) Dementia in other diseases classified elsewhere, moderate, without behavioral disturbance, psychotic disturbance, mood disturbance, and anxiety (HCC); Translations: [Dementia in other diseases classified elsewhere, moderate, without behavioral disturbance, psychotic disturbance, mood disturbance, and anxiety (HCC)] Onset: 5 Past or Other Problems Problem Classification Problem Date Documented Da te Episodic/Chronic Acute posthemorrhagic anemia (20 sources) Acute posthemorrhagic anemia; Translations: [Acute posthemorrhagic anemia] Onset: 8 05-04-2018 Episodic Administrative/social admission (20 sources) Patient encounter status; Translations: [Other specified counseling] Onset: 8 05-01-2018 Episodic Cardiac dysrhythmias (7 sources) Atrial fibrillation; Translations: [Atrial paroxysmal tachycardia] Resolved: 1 07-05-2018 Chronic Cardiac dysrhythmias (20 sources) Palpitations; Translations: [Palpitations] Onset: 1 12-31-2020 Episodic Complications of surgical procedures or medical care (2 sources) Atrial fibrillation; Translations: [Other postprocedural complications and disorders of the circulatory system, not elsewhere classified] Resolved: 1 12-31-2020 Episodic Coronary atherosclerosis and other heart disease (4 sources) History of placement of stent for coronary artery disease; Translations: [S/P drug eluting coronary stent placement] Onset: 8 07-05-2018 Episodic Deficiency and other anemia (20 sources) Anemia; Translations: [Anemia, unspecified] Onset: 8 07-05-2018 Episodic Deficiency and other anemia (3 sources) Anemia, unspecified; Translations: [Anemia, unspecified] Onset: 4 02-21-2024 Episodic E Codes: Fall (5 sources) Fall; Translations: [Fall] Resolved: 8 05-31-2018 Fracture of neck of femur (hip) (20 sources) Fracture of neck of femur; Translations: [Closed fracture of hip] Onset: 8 05-01-2018 Episodic Gastrointestinal hemorrhage (13 sources) Upper gastrointestinal bleeding; Translations: [Gastrointestinal hemorrhage, unspecified] Onset: 4 01-17-2024 Episodic Heart valve disorders (20 sources) Systolic murmur; Translations: [Cardiac murmur, unspecified] Onset: 1 12-31-2020 Episodic Malaise and fatigue (11 sources) Asthenia; Translations: [Other malaise] Onset: 4 01-17-2024 Episodic Nonspecific chest pain (3 sources) Chest pain; Translations: [Other chest pain] Episodic Other gastrointestinal disorders (20 sources) Constipation; Translations: [Other constipation] Onset: 8 05-01-2018 Episodic Other injuries and conditions due to external causes (20 sources) Traumatic injury; Translations: [Injury, unspecified, initial encounter] Onset: 8 05-01-2018 Episodic Other lower respiratory disease (1 source) Hypoxemia; Translations: [Hypoxemia] Onset: 4 Episodic Other lower respiratory disease (1 source) Shortness of breath; Translations: [Shortness of breath] Onset: 4 Episodic Other nervous system disorders (20 sources) Abnormal gait; Translations: [Unspecified abnormalities of gait and mobility] Onset: 8 05-01-2018 Episodic Other nervous system disorders (20 sources) Impaired cognition; Translations: [Other symptoms and signs involving cognitive functions and awareness] Onset: 8 05-01-2018 Episodic Other nutritional; endocrine; and metabolic disorders (20 sources) Underweight; Translations: [Underweight] Onset: 8 07-05-2018 Episodic Other skin disorders (2 sources) Disorder of the skin and subcutaneous tissue, unspecified; Translations: [Disorder of the skin and subcutaneous tissue, unspecified] Onset: 5 Episodic Pancreatic disorders (not diabetes) (3 sources) Exocrine pancreatic insufficiency; Translations: [Exocrine pancreatic insufficiency] Onset: 4 08-23-2024 Episodic Residual codes; unclassified (20 sources) Memory impairment; Translations: [Other amnesia] Onset: 2 05-27-2021 Episodic Residual codes; unclassified (1 source) Altered mental status, unspecified; Translations: [Altered mental status, unspecified] Onset: 4 Episodic Unclassified (1 source) Dementia in other diseases classified elsewhere, moderate, without behavioral disturbance, psychotic disturbance, mood disturbance, and anxiety (HCC); Translations: [Dementia in other diseases classified elsewhere, moderate, without behavioral disturbance, psychotic disturbance, mood disturbance, and anxiety (HCC)] Onset: 5 Results Test Name Value Interpretation Reference Range Facility No Panel Informationon 07-27 Sinus Rhythm WITHIN NORMAL LIMITS [facility] No Panel InformationOrdered By: Bhupendra Lamas on 07-27-2025 [facility] Work Phone: Office Visiton 07-27-2025 Follow-up visit [id number] Lamar Pathak 1940 F Date Provider Department Center 07/27/2025 [id number] [facility] [place] Family History Problem Relation Age of Onset Cancer Mother Prostate cancer Father Family Status - Relation Status Age at Mother Father Brother Alive Sister Alive Level of Service:22942 NC OFFICE/OUTPATIENT ESTABLISHED MOD MDM 30 MIN Reason for Visit and Comments: Follow-up [[id number]] Normal [facility] Progress Noteon 07-27-2025 Progress Note [facility] Cardiology Note DATE of SERVICE:07/28/25 TIME of SERVICE: 1:06 PM Chief Complaint: Chief Complaint Patient presents with Follow-up History of PresentIllness: Erlinda Pathak is a 84 y.o. female known to Dr. Lamas with a history of coronary artery disease, stenting to the LAD in 2017, hypertension, hyperlipidemia, and COPD. She comes in today for routine follow-up. Her blood pressure continues to be high here in the office. In the past when we have requested blood pressure recordings from her facility her blood pressure reading quite labile with systolic blood pressure readings between the 100-165 with average being about 130. She is feeling well. She offers no complaints physically. She specifically denies chest discomfort or shortness of breath. She resides at [facility]. She is accompanied today by her daughter. She is active socializing, doing crafts, bingo, singing, Bible study, and reading. She has been wearing compression socks due to some mild edema. The staff there assists putting them on in the morning, and removing them at night. Past Medical History: Past Medical History: Diagnosis [...] Social History Tobacco Use Smoking status: Former Current packs/day: 0.00 Types: Cigarettes Quit date: 11/19/2000 Years since quittin.7 Smokeless tobacco: Never Vaping Use Vaping status: Never Used Substance Use Topics Alcohol use: Yes Comment: occ Drug use: No Allergies: Allergies Allergen Reactions Penicillins Rash Cephalexin Rash Medications: Current Outpatient Medications: acetaminophen (Tylenol) 500 MG tablet, Take 1,000 mg by mouth 3 times daily., Disp: , Rfl: albuterol (2.5 MG/3ML) 0.083% nebulizer solution, Take by nebulization every 6 hours as needed for wheezing., Disp: , Rfl: alendronate (Fosamax) 70 MG tablet, Take 70 mg by mouth every 7 days., Disp: , Rfl: amLODIPine (Norvasc) 5 MG tablet, Take 1 tablet (5 mg) by mouth daily., Disp: , Rfl: aspirin 81 MG EC tablet, Take 1 tablet by mouth in the morning., Disp: , Rfl: atorvastatin (Lipitor) 20 MG tablet, Take 20 mg by mouth in the morning., Disp: , Rfl: budesonide ER (Ortikos) 6 MG 24 hr capsule, Take 6 mg by mouth daily., Disp: , Rfl: cloNIDine (Catapres) 0.1 MG tablet, Take 0.2 mg by mouth 3 times daily., Disp: , Rfl: Creon [id number] units capsule delayed-release particles capsule, Take 1 capsule by mouth in the morning and 1 capsule at noon and 1 capsule in the evening. Take with meals., Disp: , Rfl: donepezil (Aricept) 10 MG tablet, Take 1 tablet (10 mg) by mouth Nightly., Disp: 90 tablet, Rfl: 3 Fluticasone-Umeclidin -Vilant (Trelegy Ellipta) 100-62.5-25 MCG/ACT aerosol powder , Inhale., Disp: , Rfl: Gemtesa 75 MG tablet, Take 1 tablet by mouth daily., Disp: , Rfl: hydrALAZINE (Apresoline) 50 MG tablet, Take 50 mg by mouth 3 times daily., Disp: , Rfl: losartan (Cozaar) 100 MG tablet, Take 100 mg by mouth daily., Disp: , Rfl: Melatonin 10 MG capsule, Take 10 mg by mouth Nightly., Disp: , Rfl: montelukast (Singulair) 10 MG tablet, Take 10 mg by mouth Nightly., Disp: , Rfl: pantoprazole (ProtoNix) 40 MG EC tablet, Take 40 mg by mouth every morning (before breakfast). Do not crush, chew, or split., Disp: , Rfl: Potassium Chloride 20 MEQ/15ML (10%) solution, Take 20 mEq by mouth 2 times daily., Disp: , Rfl: primidone (Mysoline) 50 MG tablet, Take 50 mg by mouth daily., Disp: , Rfl: propranolol (Inderal) 80 MG tablet, Take 80 mg by mouth 2 times daily., Disp: , Rfl: venlafaxine XR (Effexor XR) 150 MG 24 hr capsule, Take 150 mg by mouth in the morning., Disp: , Rfl: Lac (more content not included)... Normal [facility] Progress Noteon 06-19-2025 Progress Note - No cognitive testing due to h/o poor testing performance. - Remains in moderate stage - Continue donepezil 10 mg nightly as currently prescribed for memory loss. Tolerating current dose of medication. Will continue to follow along with medication and adjust PRN. - Briefly discussed starting memantine for moderate stage with dtr today. She did not want to risk causing falls with new medication and feels that things are fairly stable. Will continue to evaluate if adding memantine is appropriate at future visits. - Continue non-pharmacologic interventions for memory - Has adequate supervision over 5 Ms- family and facility providing - F/u in 1 year for repeat testing/routine visit, call sooner for problems Normal [facility] Office Visiton 06-16-2025 Follow-up visit [id number] Lamar Pathak 1940 F Date Provider Department Center 06/16/2025 [id number] QUEZADA [facility] CS None Family History Problem Relation Age of Onset Cancer Mother Prostate cancer Father Family Status - Relation Status Age at Mother Father Brother Alive Sister Alive Level of Service:09882 NC OFFICE/OUTPATIENT ESTABLISHED MOD MDM 30 MIN Reason for Visit and Comments: Memory Loss [66] Normal [facility] Progress Noteon 06-16-2025 Progress Note [facility] [place] [address] Dept: [phone] Dept Loc: [phone] Visit type: [facility] Follow Up Visit Reason for Visit: Memory Loss Visit Date: 06/16/2025 Assessment and Plan 1. 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 behavioral disturbance, psychotic disturbance, mood disturbance, or anxiety (HCC) Assessment & Plan: - No cognitive testing due to h/o poor testing performance. - Remains in moderate stage - Continue donepezil 10 mg nightly as currently prescribed for memory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 M.D. 08/25/24 AMENDED REPORT 08/25/24 1403 PATH REV previously reported as: March Performed By: #### L 500.2500, L501.4020, L503.6620, L503.6005, L100.0100 #### [facility] [address] [place], [address] Respiratory Cultureon 2023 RESPC Mixed normal respiratory qira. No Streptococcus pneumoniae, beta-hemolytic Streptococcus or Staphylococcus aureus isolated. Normal [facility] Comment on above: Performed By: #### L 100.0500, L500.2500 #### [facility] [address] [place], [address] CBC W/Diff, Automatedon 10-0 6-2024 Absolute Lymph 1.11 X10 3/uL Normal 0.83-4.51 [facility] Comment on above: Performed By: #### M 300.4600 #### [facility] [address] [place], [address] Absolute Neut 9.6 X10 3/uL High 2.0-7.7 [facility] Comment on above: Performed By: #### M 300.4600 #### [facility] [address] [place], [address] Basophils/100 WBC (Bld) 0.2 % Normal 0-1 [facility] Comment on above: Performed By: #### M 300.4600 #### [facility] [address] [place], [address] Eosinophils/100 WBC (Bld) 0.0 % Normal 0-5 [facility] Comment on above: Performed By: #### M 300.4600 #### [facility] [address] [place], [address] Erythrocyte distribution width (RBC) [Ratio] 11.9 % Normal 11.6-14.6 [facility] Comment on above: Performed By: #### M 300.4600 #### [facility] [address] [place], [address] Hematocrit (Bld) [Volume fraction] 38.6 % Normal 37-47 [facility] Comment on above: Performed By: #### M 300.4600 #### [facility] [address] [place], [address] Hemoglobin (Bld) [Mass/Vol] 12.2 g/dL Normal 12.0-15.0 [facility] Comment on above: Performed By: #### M 300.4600 #### [facility] [address] [place], [address] IG% 0.200 Normal 0.0-0.9 [facility] Comment on above: Result Comment: IG% - Immature Granulocytes (promyelocytes, myelocytes and metamyelocytes) > 1% indicates that a LEFT SHIFT is Present. Performed By: #### M 300.4600 #### [facility] [address] [place], [address] Lymphocytes/100 WBC (Bld) 10.2 % Low 19-41 [facility] Comment on above: Performed By: #### M 300.4600 #### [facility] [address] [place], [address] MCH (RBC) [Entitic mass] 31.9 pg Normal 27.0-32.0 [facility] Comment on above: Performed By: #### M 300.4600 #### [facility] [address] [place], [address] MCHC (RBC) [Mass/Vol] 31.6 g/dL Low 32-36 [facility] Comment on above: Performed By: #### M 300.4600 #### [facility] [address] [place], [address] MCV (RBC) [Entitic vol] 101.0 fL High 81-99 [facility] Comment on above: Performed By: #### M 300.4600 #### [facility] [address] [place], [address] Monocytes/100 WBC (Bld) 1.1 % Normal 0-10 [facility] Comment on above: Performed By: #### M 300.4600 #### [facility] [address] [place], [address] Neutrophils/100 WBC (Bld) 88.3 % High 47-70 [facility] Comment on above: Performed By: #### M 300.4600 #### [facility] [address] [place], [address] Nucleated RBC (Bld) [#/Vol] 0 10*3/uL Normal 0-5 [facility] Comment on above: Performed By: #### M 300.4600 #### [facility] [address] [place], [address] Platelet mean volume (Bld) [Entitic vol] 9.5 fL Normal 6.2-12.0 [facility] Comment on above: Performed By: #### M 300.4600 #### [facility] [address] [place], [address] Platelets (Bld) [#/Vol] 186 10*3/uL Normal 150-450 [facility] Comment on above: Performed By: #### M 300.4600 #### [facility] [address] [place], [address] RBC (Bld) [#/Vol] 3.82 10*6/uL Low 4.2-5.4 [facility] Comment on above: Performed By: #### M 300.4600 #### [facility] [address] [place], [address] RDW SD 44.0 fl High 35.1-43.9 [facility] Comment on above: Performed By: #### M 300.4600 #### [facility] [address] [place], [address] WBC (Bld) [#/Vol] 10.9 10*3/uL Normal 4.4-11.0 [facility] Comment on above: Performed By: #### M 300.4600 #### [facility] [address] [place], [address] Comprehensive Metabolic Prof ilon 08-24-2024 Albumin [Mass/Vol] 2.7 g/dL Low 3.2-5.0 [facility] Comment on above: Performed By: #### M 300.4600 #### [facility] [address] [place], [address] Albumin/Globulin [Mass ratio] 0.7 {ratio} Low 0.9-2.4 [facility] Comment on above: Performed By: #### M 300.4600 #### [facility] [address] [place], [address] ALK P 75 U/L Normal 45-117 [facility] Comment on above: Performed By: #### M 300.4600 #### [facility] [address] [place], [address] ALT [Catalytic activity/Vol] 14 U/L Normal 13-56 [facility] Comment on above: Performed By: #### M 300.4600 #### [facility] [address] [place], [address] AST [Catalytic activity/Vol] 7 U/L Low 15-37 [facility] Comment on above: Performed By: #### M 300.4600 #### [facility] [address] [place], [address] Bilirubin [Mass/Vol] 0.30 mg/dL Normal 0.20-1.00 [facility] Comment on above: Result Comment: For patients on eltrombopag therapy, use of Dimension [place] TBIL is not recommended. Performed By: #### M 300.4600 #### [facility] [address] [place], [address] BUN/CRE 19.3 RATIO Normal 10-20 [facility] Comment on above: Performed By: #### M 300.4600 #### [facility] [address] [place], [address] CA,Total 9.5 mg/dL Normal 8.5-10.1 [facility] Comment on above: Performed By: #### M 300.4600 #### [facility] [address] [place], [address] Chloride [Moles/Vol] 105 mmol/L Normal 98-107 [facility] Comment on above: Performed By: #### M 300.4600 #### [facility] [address] [place], [address] CO2 [Moles/Vol] 27.0 mmol/L Normal 21.0-32.0 [facility] Comment on above: Performed By: #### M 300.4600 #### [facility] [address] [place], [address] Creatinine [Mass/Vol] 0.67 mg/dL Normal 0.55-1.02 [facility] Comment on above: Result Comment: The validity of the calculated GFR GFRAA in patients over 70 years has not been determined. Clinical correlation is essential. Performed By: #### M 300.4600 #### [facility] [address] [place], [address] ECRCL 46.82 ml/min Normal [facility] Comment on above: Performed By: #### M 300.4600 #### [facility] [address] [place], [address] EST GFR - AA 108 mL/min Normal >60 [facility] Comment on above: Result Comment: Afri can [place] GFR Calc Performed By: #### M 300.4600 #### [facility] [address] [place], [address] GAP 5 Normal 5-15 [facility] Comment on above: Performed By: #### M 300.4600 #### [facility] [address] [place], [address] GFR/1.73 sq M.predicted among non-blacks MDRD (S/P/Bld) [Vol rate/Area] 89 mL/min/{1.73_m2} Normal >60 [facility] Comment on above: Result Comment: Non- GFR Calc Performed By: #### M 300.4600 #### [facility] [address] [place], [address] Globulin (S) [Mass/Vol] 3.8 g/dL Normal 2.2-4.2 [facility] Comment on above: Performed By: #### M 300.4600 #### [facility] [address] [place], [address] Glucose [Mass/Vol] 152 mg/dL High 74-106 [facility] Comment on above: Result Comment: Fast ing Glucose result greater than or equal to 126 mg/dL suggests DIABETES MELLITUS per A.D.A. criteria. Performed By: #### M 300.4600 #### [facility] [address] [place], [address] Potassium [Moles/Vol] 3.9 mmol/L Normal 3.5-5.1 [facility] Comment on above: Performed By: #### M 300.4600 #### [facility] [address] [place], [address] Sodium [Moles/Vol] 136 mmol/L Normal 136-145 [facility] Comment on above: Performed By: #### M 300.4600 #### [facility] [address] [place], [address] T PROT 6.5 g/dL Normal 6.4-8.2 [facility] Comment on above: Performed By: #### M 300.4600 #### [facility] [address] [place], [address] Urea nitrogen [Mass/Vol] 13 mg/dL Normal 7-18 [facility] Comment on above: Performed By: #### M 300.4600 #### [facility] [address] [place], [place], [address] Gram Stainon 08-24-2024 GS Acceptable Specimen? Yes (<25 Epithelial cells per/lpf) Gram Stain 2+ Gram positive cocci 4+ White Blood Cells No Epithelial cells Normal [facility] Comment on above: Performed By: #### L 100.0500, L500.2500 #### [facility] [address] [place], [address] Legionella Antigen Urineon 1 LEGU URINE, RANDOM Legionella Antigen result interpretation: L pneumo Ag Ur Ql Negative Presumptive negative for Legionella pneumophila serogroup 1 antigen in urine, suggesting no recent or current infection. Legionella Ag, Urine Negative (See interpretation below) Normal [facility] Comment on above: Performed By: #### M 300.4500 #### [facility] [address] [place], [address] RESPIRATORY PANEL MOLECULARo n 08-24-2024 RP PANEL ADENOVIRUS Not Detected INFLUENZA A Not Detected INFLUENZA A (SUBTYPE H1) Not Detected INFLUENZA A (SUBTYPE H3) Not Detected INFLUENZA B Not Detected HUMAN METAPHNEUMO Not Detected PARAINFLUENZA 1 Not Detected PARAINFLUENZA 2 Not Detected PARAINFLUENZA 3 Not Detected PARAINFLUENZA 4 Not Detected RHINOVIRUS Not Detected RSV A Not Detected RSV B Not Detected Normal [facility] Comment on above: Performed By: #### M 100.638 #### [facility] [address] [place], [address] Strep pneumoniae Antig(UR,CS F)on 08-24-2024 STPAG URINE INTERPRETATION Strep pneumoniae Antig(UR,CSF) Negative Urine Presumptive negative for pneumococcal pneumonia, suggesting no current or recent pneumococcal infection. Infection due to S pneumoniae cannot be ruled out since the antigen present in the sample may be below the detection limit of the test. Strep pneumo Test Negative URINE (See interpretation below) Normal [facility] Comment on above: Performed By: #### M 300.4600 #### [facility] [address] [place], [address] 12 Lead EKGon 08-23-2024 12 Lead EKG [facility] [address] [place] [address] 12 Lead EKG 08/23/24 193 MR#: [id number] Acct: [id number] Name: ERLINDA PATHAK Rep #: [id number] : 1940 84 From: Riki Kearney MD Attending Dr: Dr. Amanda Jeter MD Status: ADM IN Ordering Dr: Hernesto Sheppard DO Date: 08/23/24 Location: [place] Sex: F C Admitted: 08/23/24 Test Reason : DYSRHYTHMIA Blood Pressure : / mmHG Vent. Rate : 096 BPM Atrial Rate : 096 BPM P-R Int : 134 ms QRS Dur : 074 ms QT Int : 330 ms P-R-T Axes : 034 066 082 degrees QTc Int : 416 ms Normal sinus rhythm Nonspecific ST abnormality Abnormal ECG Confirmed by KOMAL TAMAYO, RIIK ([id number]), department editor PEACE POWELL ([id number]) on 08/26/2024 9:13:44 AM Referred By: Confirmed By:RIKI KEARNEY MD 08/26/24912 Date Riki Kearney MD CC: Dr. Amanda Jeter MD; Dr. Edouard Chambers MD; Dr. Hernesto Sheppard DO Signed Normal [facility] BNP,B-Type NATRIURETIC PEPTI Halie 08-23-2024 Natriuretic peptide B (Bld) [Mass/Vol] 131.0 pg/mL High 0-100 [facility] Comment on above: Performed By: #### L 500.2500, L501.4020, L503.6620, L503.6005, L100.0100 #### [facility] [address] [place], [address] Basic Metabolic Profile (BMP )on 08-23-2024 BUN/CRE 18.7 RATIO Normal 10-20 [facility] Comment on above: Order Comment: 'TROP ' Serial specimen #1, #2 or #3: 1 Performed By: #### L 500.2500, L501.4020, L503.6620, L503.6005, L100.0100 #### [facility] [address] [place], [address] CA,Total 9.5 mg/dL Normal 8.5-10.1 [facility] Comment on above: Order Comment: 'TROP ' Serial specimen #1, #2 or #3: 1 Performed By: #### L 500.2500, L501.4020, L503.6620, L503.6005, L100.0100 #### [facility] [address] [place], [address] Chloride [Moles/Vol] 102 mmol/L Normal 98-107 [facility] Comment on above: Order Comment: 'TROP ' Serial specimen #1, #2 or #3: 1 Performed By: #### L 500.2500, L501.4020, L503.6620, L503.6005, L100.0100 #### [facility] [address] [place], [address] CO2 [Moles/Vol] 29.0 mmol/L Normal 21.0-32.0 [facility] Comment on above: Order Comment: 'TROP ' Serial specimen #1, #2 or #3: 1 Performed By: #### L 500.2500, L501.4020, L503.6620, L503.6005, L100.0100 #### [facility] [address] [place], [address] Creatinine [Mass/Vol] 0.64 mg/dL Normal 0.55-1.02 [facility] Comment on above: Order Comment: 'TROP ' Serial specimen #1, #2 or #3: 1 Result Comment: The validity of the calculated GFR GFRAA in patients over 70 years has not been determined. Clinical correlation is essential. Performed By: #### L 500.2500, L501.4020, L503.6620, L503.6005, L100.0100 #### [facility] [address] [place], [address] ECRCL 46.82 ml/min Normal [facility] Comment on above: Order Comment: 'TROP ' Serial specimen #1, #2 or #3: 1 Performed By: #### L 500.2500, L501.4020, L503.6620, L503.6005, L100.0100 #### [facility] [address] [place], [address] EST GFR - AA 114 mL/min Normal >60 [facility] Comment on above: Order Comment: 'TROP ' Serial specimen #1, #2 or #3: 1 Result Comment: Afri can [place] GFR Calc Performed By: #### L 500.2500, L501.4020, L503.6620, L503.6005, L100.0100 #### [facility] [address] [place], [address] GAP 6 Normal 5-15 [facility] Comment on above: Order Comment: 'TROP ' Serial specimen #1, #2 or #3: 1 Performed By: #### L 500.2500, L501.4020, L503.6620, L503.6005, L100.0100 #### [facility] [address] [place], [address] GFR/1.73 sq M.predicted among non-blacks MDRD (S/P/Bld) [Vol rate/Area] 94 mL/min/{1.73_m2} Normal >60 [facility] Comment on above: Order Comment: 'TROP ' Serial specimen #1, #2 or #3: 1 Result Comment: Non- GFR Calc Performed By: #### L 500.2500, L501.4020, L503.6620, L503.6005, L100.0100 #### [facility] [address] [place], [address] Glucose [Mass/Vol] 133 mg/dL High 74-106 [facility] Comment on above: Order Comment: 'TROP ' Serial specimen #1, #2 or #3: 1 Result Comment: Fast ing Glucose result greater than or equal to 126 mg/dL suggests DIABETES MELLITUS per A.D.A. criteria. Performed By: #### L 500.2500, L501.4020, L503.6620, L503.6005, L100.0100 #### [facility] [address] [place], [address] Potassium [Moles/Vol] 4.0 mmol/L Normal 3.5-5.1 [facility] Comment on above: Order Comment: 'TROP ' Serial specimen #1, #2 or #3: 1 Performed By: #### L 500.2500, L501.4020, L503.6620, L503.6005, L100.0100 #### [facility] [address] [place], [address] Sodium [Moles/Vol] 137 mmol/L Normal 136-145 [facility] Comment on above: Order Comment: 'TROP ' Serial specimen #1, #2 or #3: 1 Performed By: #### L 500.2500, L501.4020, L503.6620, L503.6005, L100.0100 #### [facility] [address] [place], [address] Urea nitrogen [Mass/Vol] 12 mg/dL Normal 7-18 [facility] Comment on above: Order Comment: 'TROP ' Serial specimen #1, #2 or #3: 1 Performed By: #### L 500.2500, L501.4020, L503.6620, L503.6005, L100.0100 #### [facility] [address] [place], [address] Chest 1 View (Portable)on Chest 1 View (Portable) [facility] Imaging Services [address] [place] [address] Chest 1 View (Portable) MR#: [id number] Acct: [id number] Name: ERLINDA PATHAK Rep #: [id number] : 1940 F 84 From: Jonathon Hawk MD PCP: Dr. Edouard Chambers MD Status: REG ER Study: Chest 1 View (Portable) Date of Exam: 08/23/24 Exam# [id number] Ordering Dr: Hernesto Sheppard DO [id number] INDICATION: SOB, COUGH EXAMINATION/TECHNIQUE : X-RAY - portable upright AP chest x-ray COMPARISON: 03/13/2024 __ FINDINGS: LINES/DEVICES: None. LUNGS: Patchy airspace opacities right midlung field. No consolidation, vascular congestion or pleural effusion. MEDIASTINUM AND CARDIOVASCULAR STRUCTURES: Cardiac silhouette stable within normal limits. BONES AND SOFT TISSUES: No acute changes. RAD/Chest 1 View (Portable) IMPRESSION: Patchy infiltrate right midlung field suspicious for pneumonia. Recommend short-term follow-up to complete resolution. Electronically Signed: Jonathon Hawk MD at 21:13 EDT , CC: Dr. Edouard Chambers MD; Dr. Hernesto Sheppard DO Admissions Consultant: Signed Normal [facility] Emergency Department Summary on 08-23-2024 Emergency Department Summary [facility] Medical Records Department [address] [place] [address] Emergency Department Summary 08/23/24 MR#: [id number] Acct: [id number] Name: ERLINDA PATHAK Rep #: [id number] : 1940 84 From: Hernesto Sheppard DO PCP: Dr. Edouard Chambers MD Status:ADM IN Location: MS3 [id number] HPI History of Present Illness Chief Complaint: Shortness of Breath [facility] Medical History (Updated 08/23/24 @ 23:[address] Valerie Freitas MD) Chronic hypoxic respiratory failure, on home oxygen therapy GERD (gastroesophageal reflux disease) Alzheimer dementia Essential tremor History of GI bleed Chronic anemia Anxiety and depression Chronic diarrhea Exocrine pancreatic insufficiency Former smoker Closed fracture of single pubic ramus of pelvis COPD (chronic obstructive pulmonary disease) Hyperlipemia Osteoarthritis HTN (hypertension) Home Medications ???Medication ???Instructions ???Recorded ???Last Taken ???Type alendronate 70 mg tablet 70 mg PO QWEEK supplement 01/12/24 08/17/24 History atorvastatin 20 mg tablet 20 mg PO QHS hld 01/12/24 01/16/24 History calcium 500 mg (as 1 tab PO BID calcuim 01/12/24 01/17/24 History carbonate)-vitamin D3 15 mcg (600 unit) tablet donepezil 10 mg tablet 10 mg PO QHS dementia 01/12/24 01/16/24 History loratadine 10 mg tablet (Loradamed) 10 mg PO DAILY congestion 01/12/24 01/17/24 History montelukast 10 mg tablet 10 mg PO DAILY asthma 01/12/24 01/17/24 History primidone 50 mg tablet 50 mg PO DAILY tremors 01/12/24 01/17/24 History propranolol 80 mg capsule,24 80 mg PO BID htn 01/12/24 01/17/24 History hr,extended release venlafaxine 150 mg 150 mg PO DAILY depression 01/12/24 01/17/24 History capsule,extended release 24 hr pantoprazole 40 mg tablet,delayed 40 mg PO BID reflux #60 tabs 01/17/24 Unknown Rx release acetaminophen 500 mg tablet 1,000 mg (2 x 500 mg) PO Q8 #0 tabs 01/29/24 Unknown Rx acidophilus 25 million 1 tab PO BID #0 tabs 01/29/24 Unknown Rx cell-pectin, citrus 100 mg tablet ascorbic acid (vitamin C) 500 mg 500 mg PO BIDCM #0 tabs 01/29/24 Unknown Rx tablet clonidine HCl 0.1 mg tablet 0.1 mg PO TID #0 tabs 01/29/24 Unknown Rx losartan 100 mg tablet 100 mg PO DAILY #0 tabs 01/29/24 Unknown Rx melatonin 10 mg sublingual tablet 10 mg PO QHS #0 tabs 01/29/24 Unknown Rx oxybutynin chloride 5 mg tablet 10 mg (2 x 5 mg) PO QHS #0 tabs 01/29/24 Unknown Rx polysaccharide iron complex 150 mg 150 mg PO BID #0 caps 01/29/24 Unknown Rx iron capsule (Ferrex) budesonide 3 mg 6 mg (2 x 3 mg) PO DAILY #60 ea 03/31/24 Unknown Rx capsule,delayed,exten ded release cholestyramine-aspart bella 4 gram 4 g PO DAILY #30 ea 03/31/24 Unknown Rx oral powder for susp in a packet aspirin 81 mg tablet,delayed 81 mg PO DAILY 04/07/24 Unknown History release (Adult Low Dose Aspirin) sakkqr-sdisxbzg-iwvuo se 1 cap PO TID #90 caps 04/07/24 Unknown Rx 36,000-114,000-180,00 0 unit capsule,delay rel (Creon) diphenoxylate-atropin e 2.5 2 tab PO BID PRN diarrhea #120 tabs 07/10/24 Unknown Rx mg-0.025 mg tablet (Lomotil) potassium chloride 20 mEq/15 mL 40 meq PO BID 08/23/24 Unknown History oral liquid vibegron 75 mg tablet (Gemtesa) 75 mg PO DAILY 08/23/24 Unknown History Allergy/AdvReac Type Severity Reaction Status Date / Time Penicillins Allergy Unknown NEEDS Verified 08/23/24 18:56 FOLLOW-UP Family History (Updated 08/23/24 @ 23:[address] Valerie Freitas MD) Mother Cancer Father Cancer Hypertension Surgical History (Updated 08/23/24 @ 23:[address] Valerie Freitas MD) Status post wrist surgery History of hip surgery History of hysterectomy History of bowel resection Social History (Updated 08/23/24 @ 23:[address] Valerie Freitas MD) household members: none housing: assisted living facility Smoking Status: Former smoker how long ago did patient quit smoking: Quit 15 years ago, < 1/2 ppd per family. alcohol intake: never substance use type: does not use EXAM Physical Exam Const Vital Signs: 08/23/24 18:57 08/23/24 19:19 08/23/24 19:25 Temperature 98.5 F Temperature Source Oral Pulse Rate 103 H Respiratory Rate 22 H Respiratory Effort Short of Breath Respiratory Depth Shallow Respiratory Pattern Tachypnea Blood Pressure 140/92 H Blood Pressure Mean 108 Pulse Ox 91 96 Oxygen Delivery Method Room Air Room Air Nasal Cannula Oxygen Flow Rate (L/min) 2 08/23/24 19:29 08/23/24 20:00 08/23/24 21:42 Temperature 98.6 F Temperature Source Oral Pulse Rate 100 93 89 Respiratory Rate 28 H 38 H 29 H Respiratory Effort Respiratory Depth Respiratory Pattern Tachypnea Blood Pressure 162/77 H 157/82 H Blood Pressure Mean 105 107 Pulse Ox 90 95 Oxygen De (more content not included)... Normal [facility] H AND P Exam - Hospitaliston 08-23-2024 H&P Exam - Hospitalist [facility] Medical Records Department [address] [place] [address] H P Exam - Hospitalist 08/23/242232 MR#: [id number] Acct: [id number] Name: ERLINDA PATHAK Rep #: [id number] : 1940 84 From: Valerie Freitas MD PCP: Dr. Edouard Chambers MD Status:ADM IN Location: [place]-2 HPI - General General Date of Admission: 08/23/24 Date of Service: 08/23/24 Chief Complaint: Dyspnea, cough. HPI Narrative The patient is an 84 y/o F w/ PMHx: Hx SBO s/p bowel resection, Chronic anemia/Fe deficiency anemia, GERD, HTN, HLD, Anxiety and Depression, Alzheimer's dementia with chart previous documented mild cognitive impairment with unclear behavioral disturbance history, COPD w/ Chronic Hypoxic Respiratory Failure (4L NC q HS only), Former tobacco use, Chronic pancreatic insufficiency, Chronic essential tremors, Chronic diarrhea, Allergic rhinitis who presents to the [facility] ED on 08/23/24 with history of increased fatigue, malaise, mild headache as well as dyspnea worse with exertion with increased respiratory rate with worsened and essential tremor above her baseline with several increased loose stools above her chronic baseline as well as a wet cough but no fevers or chills prompting ED evaluation to be cautious. In the ED upon initial ED physician evaluation patient was noted to be 86% on room air at rest with a good waveform. Workup in the ED included T98.5, heart rate 103, BP 140/92, respiratory rate 22, 91% however as noted desaturated down to 86% on room air at rest, most recent repeat vital signs T98.6, heart rate 93, BP 162/77, respiratory rate 28, 96% on 2 L nasal cannula, CBC with WBC 15.7, hemoglobin 13.4, platelet 210 with left shift, VBG with pH 7.43 otherwise not marked appearing, BMP with glucose 133, lactic acid 0.9, troponin 10, BNP 131, rapid SARS COVID/influenza/RSV negative, chest x-ray p with questionable patchy infiltrate right midlung, EKG with sinus rhythm with no acute evidence of ischemia. In the ED patient ministered DuoNeb therapy, azithromycin 5 mg IV x 1, Rocephin 1 g IV x 1 and Solu-Medrol 125 mg IV x 1. [facility] Medical History (Updated 08/23/24 @ 23:[address] Valerie Freitas MD) Chronic hypoxic respiratory failure, on home oxygen therapy GERD (gastroesophageal reflux disease) Alzheimer dementia Essential tremor History of GI bleed Chronic anemia Anxiety and depression Chronic diarrhea Exocrine pancreatic insufficiency Former smoker Closed fracture of single pubic ramus of pelvis COPD (chronic obstructive pulmonary disease) Hyperlipemia Osteoarthritis HTN (hypertension) Home Medications ???Medication ???Instructions ???Recorded ???Last Taken ???Type alendronate 70 mg tablet 70 mg PO QWEEK supplement 01/12/24 08/17/24 History atorvastatin 20 mg tablet 20 mg PO QHS hld 01/12/24 01/16/24 History calcium 500 mg (as 1 tab PO BID calcuim 01/12/24 01/17/24 History carbonate)-vitamin D3 15 mcg (600 unit) tablet donepezil 10 mg tablet 10 mg PO QHS dementia 01/12/24 01/16/24 History loratadine 10 mg tablet (Loradamed) 10 mg PO DAILY congestion 01/12/24 01/17/24 History montelukast 10 mg tablet 10 mg PO DAILY asthma 01/12/24 01/17/24 History primidone 50 mg tablet 50 mg PO DAILY tremors 01/12/24 01/17/24 History propranolol 80 mg capsule,24 80 mg PO BID htn 01/12/24 01/17/24 History hr,extended release venlafaxine 150 mg 150 mg PO DAILY depression 01/12/24 01/17/24 History capsule,extended release 24 hr pantoprazole 40 mg tablet,delayed 40 mg PO BID reflux #60 tabs 01/17/24 Unknown Rx release acetaminophen 500 mg tablet 1,000 mg (2 x 500 mg) PO Q8 #0 tabs 01/29/24 Unknown Rx acidophilus 25 million 1 tab PO BID #0 tabs 01/29/24 Unknown Rx cell-pectin, citrus 100 mg tablet ascorbic acid (vitamin C) 500 mg 500 mg PO BIDCM #0 tabs 01/29/24 Unknown Rx tablet clonidine HCl 0.1 mg tablet 0.1 mg PO TID #0 tabs 01/29/24 Unknown Rx losartan 100 mg tablet 100 mg PO DAILY #0 tabs 01/29/24 Unknown Rx melatonin 10 mg sublingual tablet 10 mg PO QHS #0 tabs 01/29/24 Unknown Rx oxybutynin chloride 5 mg tablet 10 mg (2 x 5 mg) PO QHS #0 tabs 01/29/24 Unknown Rx polysaccharide iron complex 150 mg 150 mg PO BID #0 caps 01/29/24 Unknown Rx iron capsule (Ferrex) budesonide 3 mg 6 mg (2 x 3 mg) PO DAILY #60 ea 03/31/24 Unknown Rx capsule,delayed,exten ded release cholestyramine-aspart bella 4 gram 4 g PO DAILY #30 ea 03/31/24 Unknown Rx oral powder for susp in a packet aspirin 81 mg tablet,delayed 81 mg PO DAILY 04/07/24 Unknown History release (Adult Low Dose Aspirin) obnxir-vwelvhit-felmf se 1 cap PO TID #90 caps 04/07/24 Unknown Rx 36,000-114,000-180,00 0 unit capsule,delay rel (Creon) diphenoxylate-atropin e 2.5 2 tab PO BID PRN diarrhea #120 tabs 07/10/24 Unknown Rx mg-0.025 mg tablet (Lomotil) potassium chloride 20 mEq (more content not included)... Normal [facility] L501.4020on 08-23-2024 TROPONIN-I HS 10 pg/mL Normal 3.0-54.0 [facility] Comment on above: Order Comment: 'TROP ' Serial specimen #1, #2 or #3: 1 Result Comment: Rissa partida Note: New Test Units and Gender Specific Reference Ranges. For more information see Policy Stat Procedure [place] High Sensitivity Troponin (TNIH) and attachments. Performed By: #### L 500.2500, L501.4020, L503.6620, L503.6005, L100.0100 #### [facility] [address] [place], [address] Lactic Acidon 08-23-2024 Lactate [Moles/Vol] 0.9 mmol/L Normal 0.4-1.9 [facility] Comment on above: Order Comment: Y Performed By: #### L 500.2500, L501.4020, L503.6620, L503.6005, L100.0100 #### [facility] [address] [place], [address] M100.678on 08-23-2024 M100.678 Pending SARS-CoV-2 (COVID 19) Negative INFLUENZA A Negative INFLUENZA B Negative RSV PCR Negative Normal [facility] Comment on above: Performed By: #### M 100.638 #### [facility] [address] [place], [address] Procalcitoninon 08-23-2024 Procalcitonin 0.15 ng/mL High 0.00-0.09 [facility] Comment on above: Result Comment: A procalcitonin (PCT) level above 2.0 ng/mL on the first day of ICU admission is associated with a high risk for progression to severe sepsis and/or septic shock. A PCT level below 0.5 ng/mL on the first day of ICU admission is associated with a low risk for progression to severe and/or septic shock. Note: Concentrations <0.5 ng/mL do not exclude an infection on account of localized infections (without systemic signs) which can be associated with such low concentrations, or a systemic infection in its initial stages (<6 hours). Furthermore, increased procalcitonin can occur without infection. PCT concentrations between 0.5 and 2.0 ng/mL should be interpreted taking into account the patient's history. It is recommended to retest PCT within 6-24 hours if any concentrations <2 ng/mL are obtained. Performed By: #### M 300.6520 #### [facility] [address] [place], [address] Venous Blood Gason 4 Blood Gas Type TAHIR Normal [facility] Comment on above: Performed By: #### M 100.638 #### [facility] [address] [place], [address] CO2 [Moles/Vol] 33 mmol/L Normal 23-33 [facility] Comment on above: Performed By: #### M 100.638 #### [facility] [address] [place], [address] HCO3 (Bld) [Moles/Vol] 31 mmol/L High 22-26 [facility] Comment on above: Performed By: #### M 100.638 #### [facility] [address] [place], [address] O2 Delivery Dev Room Air Normal [facility] Comment on above: Performed By: #### M 100.638 #### [facility] [address] [place], [address] SITE Not entered Normal [facility] Comment on above: Performed By: #### M 100.638 #### [facility] [address] [place], [address] VBG BE 7 mmol/L High -1.0-3.5 [facility] Comment on above: Performed By: #### M 100.638 #### [facility] [address] [place], [address] VBG pCO2 47.0 mmHg Normal 41-51 [facility] Comment on above: Performed By: #### M 100.638 #### [facility] [address] [place], [address] VBG pH 7.43 High 7.32-7.42 [facility] Comment on above: Performed By: #### M 100.638 #### [facility] [address] [place], [address] VBG PO2 33 mmHg Normal 25-40 [facility] Comment on above: Performed By: #### M 100.638 #### [facility] [address] [place], [address] VBG SO2 64 Normal 50-70 [facility] Comment on above: Performed By: #### M 100.638 #### [facility] [address] [place], [address] Gastroenterology Visit Repor ton 08-01-2024 Gastroenterology Visit Report [facility] Gastroenterology [address] [place] [address] OFFICE VISIT Date of Service: 08/01/24 MR#: [id number] Acct: [id number] Name: RELINDA PATHAK Rep #: [id number] : 1940 Provider: LUZ Gomez Age/Sex: 83/F Location: [facility] Status: Signed Intake Vital Signs 03/24/24 10:18 Height 5 ft 4 in Intake Visit Reasons: Appt Allergies Penicillins Allergy (Unknown, Verified 03/24/24 10:29) NEEDS FOLLOW-UP Medications ???Medication ???Instructions ???Recorded ???Confirmed ???Type alendronate 70 mg tablet 70 mg PO QWEEK supplement 01/12/24 08/01/24 History atorvastatin 20 mg tablet 20 mg PO QHS hld 01/12/24 08/01/24 History calcium carbonate 500 mg-vitamin 1 tab PO BID calcuim 01/12/24 08/01/24 History D3 15 mcg (600 unit) tablet donepezil 10 mg tablet 10 mg PO QHS dementia 01/12/24 08/01/24 History fluticasone fur. 100 mcg-umeclid 1 inh inhalation DAILY COPD 01/12/24 08/01/24 History 62.5 mcg-vilant 25 mcg inhalat.powder (Trelegy Ellipta) loratadine 10 mg tablet (Loradamed) 10 mg PO DAILY congestion 01/12/24 08/01/24 History montelukast 10 mg tablet 10 mg PO DAILY asthma 01/12/24 08/01/24 History potassium chloride 20 mEq 20 meq PO DAILY supplement 01/12/24 08/01/24 History tablet,extended release primidone 50 mg tablet 50 mg PO DAILY tremors 01/12/24 08/01/24 History propranolol 80 mg capsule,24 80 mg PO BID htn 01/12/24 08/01/24 History hr,extended release venlafaxine 150 mg 150 mg PO DAILY depression 01/12/24 08/01/24 History capsule,extended release 24 hr pantoprazole 40 mg tablet,delayed 40 mg PO BID reflux #60 tabs 01/17/24 08/01/24 Rx release acetaminophen 500 mg tablet 1,000 mg (2 x 500 mg) PO Q8 #0 tabs 01/29/24 08/01/24 Rx acidophilus 25 million 1 tab PO BID #0 tabs 01/29/24 08/01/24 Rx cell-pectin, citrus 100 mg tablet ascorbic acid (vitamin C) 500 mg 500 mg PO BIDCM #0 tabs 01/29/24 08/01/24 Rx tablet clonidine HCl 0.1 mg tablet 0.1 mg PO TID #0 tabs 01/29/24 08/01/24 Rx losartan 100 mg tablet 100 mg PO DAILY #0 tabs 01/29/24 08/01/24 Rx melatonin 10 mg sublingual tablet 10 mg PO QHS #0 tabs 01/29/24 08/01/24 Rx oxybutynin chloride 5 mg tablet 10 mg (2 x 5 mg) PO QHS #0 tabs 01/29/24 08/01/24 Rx polysaccharide iron complex 150 mg 150 mg PO BID #0 caps 01/29/24 08/01/24 Rx iron capsule (Ferrex) budesonide 3 mg 6 mg (2 x 3 mg) PO DAILY #60 ea 03/31/24 08/01/24 Rx capsule,delayed,exten ded release cholestyramine-aspart bella 4 gram 4 g PO DAILY #30 ea 03/31/24 08/01/24 Rx oral powder for susp in a packet aspirin 81 mg tablet,delayed 81 mg PO DAILY 04/07/24 08/01/24 History release (Adult Low Dose Aspirin) ppserv-kkzyirhy-resnb se 1 cap PO TID #90 caps 04/07/24 08/01/24 Rx 36,000-114,000-180,00 0 unit capsule,delay rel (Creon) diphenoxylate-atropin e 2.5 2 tab PO BID PRN diarrhea #120 tabs 07/10/24 08/01/24 Rx mg-0.025 mg tablet (Lomotil) Have you fallen in the past year?: No Nurse's Note: OV 9.. pt's daughter reports that pt has only had two explosive blowouts since LV and seems to be getting her strength back. Pt's daughters believe her diarrhea is food-related. Pt continues with Cholestyramine, lomotil, and creon. [facility] Medical History Closed fracture of single pubic ramus of pelvis COPD (chronic obstructive pulmonary disease) Depression Fall HTN (hypertension) Hyperlipemia Inability to walk Osteoarthritis Surgical History History of bowel resection Social History household members: none housing: assisted living facility Smoking Status: Former smoker alcohol intake: never substance use type: does not use HPI HPI Details: ERLINDA PATHAK, is a 83 F who presents to the office today for f/u. OV 4.4.24- Pt reports she is well since hospital. Is not having dizziness, SOB or weakness. No abdominal pain, heartburn or dysphagia. States her stools are still dark. Cont. oral iron. Family reports she was having dark stools prior to the ER visit. Was surprised she had ulcers as she has never had or complained of sx. OV 5.20.24 Pt and daughters report continued loose stools, 3-4 times a day; pt is no longer experiencing explosive blowouts since cutting out dairy and starting cholestyramine. Stool elastase 5.8.24; 121L OV 9.13.24 patient is here today with her daughters. She has been doing well since her last visit with only a few "blowouts" She has been taking creon, cholestyramine and lomotil. She has had some constipation recently and her daughters are worried as she has had a bowel obstruction with bowel resection. They would like her to (more content not included)... Normal [facility] ECG 12 leadon 07-01-2024 Sinus Rhythm WITHIN NORMAL LIMITS [facility] Gastroenterology Visit Repor ton 04-07-2024 Gastroenterology Visit Report [facility] Gastroenterology [address] [place] [address] OFFICE VISIT Date of Service: 04/07/24 MR#: [id number] Acct: [id number] Name: ERLINDA PATHAK Rep #: [id number] : 1940 Provider: Jonathan Bell DO Age/Sex: 83/F Location: [facility] Status: Signed Intake Vital Signs 03/13/24 21:48 03/17/24 14:52 03/24/24 10:18 Height 5 ft 4 in 5 ft 4 in 5 ft 4 in Intake Visit Reasons: 6 week follow up Chief Complaint: s/p fall, pubic fx Allergies Penicillins Allergy (Unknown, Verified 03/24/24 10:29) NEEDS FOLLOW-UP Medications ???Medication ???Instructions ???Recorded ???Confirmed ???Type alendronate 70 mg tablet 70 mg PO QWEEK supplement 01/12/24 04/07/24 History atorvastatin 20 mg tablet 20 mg PO QHS hld 01/12/24 04/07/24 History calcium carbonate 500 mg-vitamin 1 tab PO BID calcuim 01/12/24 04/07/24 History D3 15 mcg (600 unit) tablet donepezil 10 mg tablet 10 mg PO QHS dementia 01/12/24 04/07/24 History fluticasone fur. 100 mcg-umeclid 1 inh inhalation DAILY COPD 01/12/24 04/07/24 History 62.5 mcg-vilant 25 mcg inhalat.powder (Trelegy Ellipta) loratadine 10 mg tablet (Loradamed) 10 mg PO DAILY congestion 01/12/24 04/07/24 History montelukast 10 mg tablet 10 mg PO DAILY asthma 01/12/24 04/07/24 History potassium chloride 20 mEq 20 meq PO DAILY supplement 01/12/24 04/07/24 History tablet,extended release primidone 50 mg tablet 50 mg PO DAILY tremors 01/12/24 04/07/24 History propranolol 80 mg capsule,24 80 mg PO BID htn 01/12/24 04/07/24 History hr,extended release venlafaxine 150 mg 150 mg PO DAILY depression 01/12/24 04/07/24 History capsule,extended release 24 hr pantoprazole 40 mg tablet,delayed 40 mg PO BID reflux #60 tabs 01/17/24 04/07/24 Rx release acetaminophen 500 mg tablet 1,000 mg (2 x 500 mg) PO Q8 #0 tabs 01/29/24 04/07/24 Rx acidophilus 25 million 1 tab PO BID #0 tabs 01/29/24 04/07/24 Rx cell-pectin, citrus 100 mg tablet ascorbic acid (vitamin C) 500 mg 500 mg PO BIDCM #0 tabs 01/29/24 04/07/24 Rx tablet clonidine HCl 0.1 mg tablet 0.1 mg PO TID #0 tabs 01/29/24 04/07/24 Rx losartan 100 mg tablet 100 mg PO DAILY #0 tabs 01/29/24 04/07/24 Rx melatonin 10 mg sublingual tablet 10 mg PO QHS #0 tabs 01/29/24 04/07/24 Rx oxybutynin chloride 5 mg tablet 10 mg (2 x 5 mg) PO QHS #0 tabs 01/29/24 04/07/24 Rx polysaccharide iron complex 150 mg 150 mg PO BID #0 caps 01/29/24 04/07/24 Rx iron capsule (Ferrex) budesonide 3 mg 6 mg (2 x 3 mg) PO DAILY #60 ea 03/31/24 04/07/24 Rx capsule,delayed,exten ded release cholestyramine-aspart bella 4 gram 4 g PO DAILY #30 ea 03/31/24 04/07/24 Rx oral powder for susp in a packet aspirin 81 mg tablet,delayed 81 mg PO DAILY 04/07/24 04/07/24 History release (Adult Low Dose Aspirin) [facility] Medical History Closed fracture of single pubic ramus of pelvis COPD (chronic obstructive pulmonary disease) Depression Fall HTN (hypertension) Hyperlipemia Inability to walk Osteoarthritis Surgical History History of bowel resection Social History household members: none housing: assisted living facility Smoking Status: Former smoker alcohol intake: never substance use type: does not use HPI HPI Chief Complaint: s/p fall, pubic fx Details: ERLINDA PATHAK, is a 83 F who presents to the office today for follow up. OV 4.4.24- Pt reports she is well since hospital. Is not having dizziness, SOB or weakness. No abdominal pain, heartburn or dysphagia. States her stools are still dark. Cont. oral iron. Family reports she was having dark stools prior to the ER visit. Was surprised she had ulcers as she has never had or complained of sx. OV 5.20.24 Pt and daughters report continued loose stools, 3-4 times a day; pt is no longer experiencing explosive blowouts since cutting out dairy and starting cholestyramine. Exam Const General: cooperative and comfortable Nutritional Appearance: average body habitus and well nourished [facility] Head: normal to inspection Ears: hearing grossly normal bilaterally Nose: external nose normal Face and sinus: normal facial exam Mouth: oral mucosae normal Throat: posterior oropharynx normal Eyes General: appearance normal, both eyes and all related structures Neck Neck: normal visual inspection Chest Chest palpation inspection: normal inspection of the chest and normal palpation of entire chest wall Resp Effort Inspection: normal respiratory effort Auscultation: Bilateral: Clear to Auscultation Cardio Palpation: normal PMI Rate: regular rate Rhythm: regular rhythm GI Inspection: normal to inspec (more content not included)... Normal [facility] Calprotectin, Stoolon [address] 133 ug/g Abnormal 0-120 [facility] Comment on above: Result Comment: Conc entration Interpretation Follow-Up < 5 - 50 ug/g Normal None >50 -120 ug/g Borderline Re-evaluate in 4-6 weeks >120 ug/g Abnormal Repeat as clinically indicated Performed at: [address] [id number] Compliance Vice President: Manuela Stack MD, Phone: [phone] Performed By: #### L 100.0500, L500.2500 #### [facility] [address] [place], [place], [address] L7000.0750on 04-02-2024 P ELASTASE,FECA 109 Low >200 [facility] Comment on above: Result Comment: Resu lt Units: ug Elast./g Severe Pancreatic Insufficiency: <100 Moderate Pancreatic Insufficiency: 100 - 200 Normal: >200 Performed at: [address] [id number] Compliance Vice President: Manuela Stack MD, Phone: [phone] Performed By: #### L 100.0500, L500.2500 #### [facility] [address] [place], [place], [address] M7400.3302on 04-01-2024 M7400.3302 _ TESTING PERFORMED AT [facility]. ORIGINAL REPORT ON FILE IN LAB CONTAINS ADDITIONAL TEST SITE INFORMATION. Giardia Lamblia EIA NEGATIVE Normal [facility] Comment on above: Performed By: #### L 100.0500, L500.2500 #### [facility] [address] [address] [place], [place], [address] Miscellaneous Lab Procedureo n 04-01-2024 [facility] LAB TEST Normal [facility] Comment on above: Order Comment: [id number], STOOL CULTURE, ORANGE PARA [id number], STOOL CULTURE, ORANGE PARA SATNAM Result Comment: STOO L CULTURE TEST RESULT AND FLAG SALMONELLA/SHIGELLA SCREEN NO SALMONELLA OR SHIGELLA RECOVERED. CAMPYLOBACTER CULTURE NO CAMPYLOBACTER SPECIES ISOLATED. E COLI SHIGA TOXIN EIA NEGATIVE Performed By: #### L 100.0500, L500.2500 #### [facility] [address] [place], [address] Ova and Parasites 8623on OP OVA AND PARASITES EXAM, ROUTINE These results were obtained using wet preparation(s) and trichrome stained smear. This test does not include testing for Crytosporidium parvum, Cyclospora, or Microsporidia. O+P Spec Micro One negative specimen does not rule out the possibility of a parasitic infection. TESTING PERFORMED AT [facility]. ORIGINAL REPORT ON FILE IN LAB CONTAINS ADDITIONAL TEST SITE INFORMATION. Ova/Parasite Exam NO OVA, CYSTS, OR PARASITES FOUND. Normal [facility] Comment on above: Performed By: #### L 100.0500, L500.2500 #### [facility] [address] [place], [place], [id number] CDIFF (PCR)on 03-26-2024 CDIFF [id number], STOOL CULTURE, ORANGE PARA SATNAM A positive C. difficile molecular test does not differentiate between an active C. difficile infection and C. difficile colonization. Use clinical judgement and paired toxin/antigen testing to identify true infection and need for treatment. C diff DNA Spec Ql LUCIA+probe Reference Range: Negative Cep[employer]tale Gamesid GeneXpert: polymerase chain reaction (PCR) 027 027 NAP1-B1 Presumptive Negative *for epidemiolologic???use C. Diff PCR Negative- No toxigenic C. Diff Detected Normal [facility] Comment on above: Performed By: #### L 100.0500, L500.2500 #### [facility] [address] [place], [address] Stool Lactoferrin/WBCon 05-0 WBCST [id number], STOOL CULTURE, ORANGE PARA SATNAM Fecal WBC Lactoferrin A Positive: Fecal WBC Lactoferrin present A Normal [facility] Comment on above: Performed By: #### L 100.0500, L500.2500 #### [facility] [address] [place], [address] 12 Lead EKGon 03-24-2024 12 Lead EKG [facility] Cardiovascular Services [address] [place] [address] 12 Lead EKG 03/24/24 1252 MR#: [id number] Acct: [id number] Name: ERLINDA PATHAK Rep #: [id number] : 1940 83 From: Goran Alcantar MD Attending Dr: Status: DEP ER Ordering Dr: Henok Friend DO Date: 03/24/24 Location: ED Sex: F C Admitted: Test Reason : FALL Blood Pressure : / mmHG Vent. Rate : 069 BPM Atrial Rate : 069 BPM P-R Int : 156 ms QRS Dur : 088 ms QT Int : 390 ms P-R-T Axes : 055 052 064 degrees QTc Int : 417 ms Normal sinus rhythm Normal ECG Confirmed by Goran Alcantar ([id number]), department editor WADE RAMOS ([id number]) on 03/25/2024 9:57:06 AM Referred By: Confirmed By:Goran Alcantar 03/25/24 0957 Date Goran Alcantar MD CC: Dr. Henok Friend DO; Darcy Clifton MD Signed Normal [facility] Absolute lymphocyte countOrd ered By: Henok Friend on 03-24-2024 Lymphocytes Auto (Unsp spec) [#/Vol] 1.52 10*3/uL 0.83-4.51 [facility] Automated lymphocyte count a s percentage of total leukocytesOrdered By: Henok Friend on 03-24-2024 Lymphocytes/100 WBC Auto (Unsp spec) 16.8 % 19-41 [facility] Basophil percentageOrdered B y: Henok Friend on 03-24-2024 Basophils/100 WBC (Bld) 0.7 % 0-1 [facility] Bilirubin [Mass/Vol] 0.40 mg/dL 0.20-1.00 [facility] Comment on above: For patients on eltr ombopag therapy, use of Dimension [place] TBIL is not recommended. Chloride [Moles/Vol] 117 mmol/L 98-107 [facility] Eosinophils/100 WBC (Bld) 0.6 % 0-5 [facility] Glucose [Mass/Vol] 126 mg/dL 74-106 [facility] Comment on above: Fasting Glucose resu lt greater than or equal to 126 mg/dL suggests DIABETES MELLITUS per A.D.A. criteria. Hemoglobin (Bld) [Mass/Vol] 14.0 g/dL 12.0-15.0 [facility] Monocytes/100 WBC (Bld) 6.6 % 0-10 [facility] Neutrophils (Bld) [#/Vol] 6.8 10*3/uL 2.0-7.7 [facility] Neutrophils/100 WBC (Bld) 74.7 % 47-70 [facility] Potassium [Moles/Vol] 3.5 mmol/L 3.5-5.1 [facility] Protein [Mass/Vol] 7.5 g/dL 6.4-8.2 [facility] Sodium [Moles/Vol] 140 mmol/L 136-145 [facility] WBC (Bld) [#/Vol] 9.1 10*3/uL 4.4-11.0 [facility] Brain/Head without Contrasto n 03-24-2024 Brain/Head without Contrast [facility] Imaging Services [address] [place] [address] Brain/Head without Contrast MR#: [id number] Acct: [id number] Name: ERLINDA PATHAK Rep #: [id number] : 1940 F 83 From: Eddie carreno MD PCP: Darcy Clifton MD Status: REG ER Study: Brain/Head without Contrast Date of Exam: 05/12 Exam# [id number] Ordering Dr: Henok Friend DO [id number] STUDY: CT BRAIN WITHOUT CONTRAST REASON FOR EXAM: Female, 83 years old. Confusion. Patient has dementia. RADIATION DOSAGE (If Supplied By Facility): CTDIvol = ( 44.99 ) mGy, DLP = ( 745.49 ) mGycm TECHNIQUE: Transaxial CT imaging of the brain was performed without administration of intravenous contrast material. Individualized dose optimization techniques were used for this CT. COMPARISON: No relevant priors. FINDINGS: Normal soft tissue structures. Normal calvarium. There is mild cerebral atrophy with widening of the extra-axial spaces and ventricular dilatation. There are areas of decreased attenuation within the white matter tracts of the supratentorial brain, consistent with microvascular disease changes. Normal basal ganglia and thalami. Normal brainstem. Normal cerebellum. There is no intracranial hemorrhage. There are no findings of an acute ischemic infarction. Atherosclerotic plaque formation of the cavernous portions of the internal carotid arteries and vertebral arteries. Normal visualized paranasal sinuses. CT/Brain/Head without Contrast IMPRESSION: Chronic involutional changes of the brain. Electronically Signed: Eddie Waller MD at 12:12 EDT , CC: Dr. Henok Friend DO; Darcy Clifton MD Admissions Consultant: Signed Normal [facility] CBC W/Diff, Automatedon Absolute Lymph 1.52 X10 3/uL Normal 0.83-4.51 [facility] Comment on above: Performed By: #### M 300.5470 #### [facility] Laboratory [address] [place], [address] Absolute Neut 6.8 X10 3/uL Normal 2.0-7.7 [facility] Comment on above: Performed By: #### M 300.4600 #### [facility] [address] [place], [address] Basophils/100 WBC (Bld) 0.7 % Normal 0-1 [facility] Comment on above: Performed By: #### M 300.4600 #### [facility] [address] [place], [address] Eosinophils/100 WBC (Bld) 0.6 % Normal 0-5 [facility] Comment on above: Performed By: #### M 300.4600 #### [facility] [address] [place], [address] Erythrocyte distribution width (RBC) [Ratio] 15.1 % High 11.6-14.6 [facility] Comment on above: Performed By: #### M 300.4600 #### [facility] [address] [place], [address] Hematocrit (Bld) [Volume fraction] 44.7 % Normal 37-47 [facility] Comment on above: Performed By: #### M 300.4600 #### [facility] [address] [place], [address] Hemoglobin (Bld) [Mass/Vol] 14.0 g/dL Normal 12.0-15.0 [facility] Comment on above: Performed By: #### M 300.4600 #### [facility] [address] [place], [address] IG% 0.600 Normal 0.0-0.9 [facility] Comment on above: Result Comment: IG% - Immature Granulocytes (promyelocytes, myelocytes and metamyelocytes) > 1% indicates that a LEFT SHIFT is Present. Performed By: #### M 300.4600 #### [facility] [address] [place], [address] Lymphocytes/100 WBC (Bld) 16.8 % Low 19-41 [facility] Comment on above: Performed By: #### M 300.4600 #### [facility] [address] [place], [address] MCH (RBC) [Entitic mass] 28.7 pg Normal 27.0-32.0 [facility] Comment on above: Performed By: #### M 300.4600 #### [facility] [address] [place], [address] MCHC (RBC) [Mass/Vol] 31.3 g/dL Low 32-36 [facility] Comment on above: Performed By: #### M 300.4600 #### [facility] [address] [place], [address] MCV (RBC) [Entitic vol] 91.8 fL Normal 81-99 [facility] Comment on above: Performed By: #### M 300.4600 #### [facility] [address] [place], [address] Monocytes/100 WBC (Bld) 6.6 % Normal 0-10 [facility] Comment on above: Performed By: #### M 300.4600 #### [facility] [address] [place], [address] Neutrophils/100 WBC (Bld) 74.7 % High 47-70 [facility] Comment on above: Performed By: #### M 300.4600 #### [facility] [address] [place], [address] Nucleated RBC (Bld) [#/Vol] 0 10*3/uL Normal 0-5 [facility] Comment on above: Performed By: #### M 300.4600 #### [facility] [address] [place], [address] Platelet mean volume (Bld) [Entitic vol] 8.5 fL Normal 6.2-12.0 [facility] Comment on above: Performed By: #### M 300.4600 #### [facility] [address] [place], [address] Platelets (Bld) [#/Vol] 294 10*3/uL Normal 150-450 [facility] Comment on above: Performed By: #### M 300.4600 #### [facility] [address] [place], [address] RBC (Bld) [#/Vol] 4.87 10*6/uL Normal 4.2-5.4 [facility] Comment on above: Performed By: #### M 300.4600 #### [facility] [address] [place], [address] RDW SD 50.8 fl High 35.1-43.9 [facility] Comment on above: Performed By: #### M 300.4600 #### [facility] [address] [place], [address] WBC (Bld) [#/Vol] 9.1 10*3/uL Normal 4.4-11.0 [facility] Comment on above: Performed By: #### M 300.4600 #### [facility] [address] [place], [address] Comprehensive Metabolic Prof ilon 03-24-2024 Albumin [Mass/Vol] 3.7 g/dL Normal 3.2-5.0 [facility] Comment on above: Order Comment: 'TROP ' Serial specimen #1, #2 or #3: 1 Performed By: #### M 300.4600 #### [facility] [address] [place], [address] Albumin/Globulin [Mass ratio] 1.0 {ratio} Normal 0.9-2.4 [facility] Comment on above: Order Comment: 'TROP ' Serial specimen #1, #2 or #3: 1 Performed By: #### M 300.4600 #### [facility] [address] [place], [address] ALK P 231 U/L High 45-117 [facility] Comment on above: Order Comment: 'TROP ' Serial specimen #1, #2 or #3: 1 Performed By: #### M 300.4600 #### [facility] [address] [place], [address] ALT [Catalytic activity/Vol] 20 U/L Normal 13-56 [facility] Comment on above: Order Comment: 'TROP ' Serial specimen #1, #2 or #3: 1 Performed By: #### M 300.4600 #### [facility] [address] [place], [address] AST [Catalytic activity/Vol] 16 U/L Normal 15-37 [facility] Comment on above: Order Comment: 'TROP ' Serial specimen #1, #2 or #3: 1 Performed By: #### M 300.4600 #### [facility] [address] [place], [address] Bilirubin [Mass/Vol] 0.40 mg/dL Normal 0.20-1.00 [facility] Comment on above: Order Comment: 'TROP ' Serial specimen #1, #2 or #3: 1 Result Comment: For patients on eltrombopag therapy, use of Dimension [place] TBIL is not recommended. Performed By: #### M 300.4600 #### [facility] [address] [place], [address] BUN/CRE 13.1 RATIO Normal 10-20 [facility] Comment on above: Order Comment: 'TROP ' Serial specimen #1, #2 or #3: 1 Performed By: #### M 300.4600 #### [facility] [address] [place], [address] CA,Total 10.4 mg/dL High 8.5-10.1 [facility] Comment on above: Order Comment: 'TROP ' Serial specimen #1, #2 or #3: 1 Performed By: #### M 300.4600 #### [facility] [address] [place], [address] Chloride [Moles/Vol] 117 mmol/L High 98-107 [facility] Comment on above: Order Comment: 'TROP ' Serial specimen #1, #2 or #3: 1 Performed By: #### M 300.4600 #### [facility] [address] [place], [address] CO2 [Moles/Vol] 17.0 mmol/L Low 21.0-32.0 [facility] Comment on above: Order Comment: 'TROP ' Serial specimen #1, #2 or #3: 1 Performed By: #### M 300.4600 #### [facility] [address] [place], [address] Creatinine [Mass/Vol] 1.07 mg/dL High 0.55-1.02 [facility] Comment on above: Order Comment: 'TROP ' Serial specimen #1, #2 or #3: 1 Result Comment: The validity of the calculated GFR GFRAA in patients over 70 years has not been determined. Clinical correlation is essential. Performed By: #### M 300.4600 #### [facility] [address] [place], [address] EST GFR - AA 63 mL/min Normal >60 [facility] Comment on above: Order Comment: 'TROP ' Serial specimen #1, #2 or #3: 1 Result Comment: Afri can [place] GFR Calc Performed By: #### M 300.4600 #### [facility] [address] [place], [address] GAP 6 Normal 5-15 [facility] Comment on above: Order Comment: 'TROP ' Serial specimen #1, #2 or #3: 1 Performed By: #### M 300.4600 #### [facility] [address] [place], [address] GFR/1.73 sq M.predicted among non-blacks MDRD (S/P/Bld) [Vol rate/Area] 52 mL/min/{1.73_m2} Low >60 [facility] Comment on above: Order Comment: 'TROP ' Serial specimen #1, #2 or #3: 1 Result Comment: Non- GFR Calc Performed By: #### M 300.4600 #### [facility] [address] [place], [address] Globulin (S) [Mass/Vol] 3.8 g/dL Normal 2.2-4.2 [facility] Comment on above: Order Comment: 'TROP ' Serial specimen #1, #2 or #3: 1 Performed By: #### M 300.4600 #### [facility] [address] [place], [address] Glucose [Mass/Vol] 126 mg/dL High 74-106 [facility] Comment on above: Order Comment: 'TROP ' Serial specimen #1, #2 or #3: 1 Result Comment: Fast ing Glucose result greater than or equal to 126 mg/dL suggests DIABETES MELLITUS per A.D.A. criteria. Performed By: #### M 300.4600 #### [facility] [address] [place], [address] Potassium [Moles/Vol] 3.5 mmol/L Normal 3.5-5.1 [facility] Comment on above: Order Comment: 'TROP ' Serial specimen #1, #2 or #3: 1 Performed By: #### M 300.4600 #### [facility] [address] [place], [address] Sodium [Moles/Vol] 140 mmol/L Normal 136-145 [facility] Comment on above: Order Comment: 'TROP ' Serial specimen #1, #2 or #3: 1 Performed By: #### M 300.0754 #### [facility] [address] [place], [place], [id number] T PROT 7.5 g/dL Normal 6.4-8.2 [facility] Comment on above: Order Comment: 'TROP ' Serial specimen #1, #2 or #3: 1 Performed By: #### M 300.460 #### [facility] [address] [place], [place], [id number] Urea nitrogen [Mass/Vol] 14 mg/dL Normal 7-18 [facility] Comment on above: Order Comment: 'TROP ' Serial specimen #1, #2 or #3: 1 Performed By: #### M 300.8209 #### [facility] [address] [place], [place], [id number] Determination of erythrocyte mean corpuscular volume (MCV)Ordered By: Henok Friend on 03-24-2024 MCV (RBC) [Entitic vol] 91.8 fL 81-99 [facility] Emergency Department Summary on 03-24-2024 Emergency Department Summary [facility] Medical Records Department [address] [place] [address] Emergency Department Summary 03/24/24 MR#: [id number] Acct: [id number] Name: ERLINDA PATHAK Rep #: [id number] : 1940 83 From: Henok Friend DO PCP: Darcy Clifton MD Status:DEP ER Location: ED HPI History of Present Illness Chief Complaint: Mental Status Change Narrative Narrative: 83-year-old female presenting with her family with progressive debility. She has had several falls over the last 2 weeks. She was already seen in the ER for these falls and had lab work done her f amily states she was dehydrated. Family states today that the nursing staff at her [facility] facility stated that the family needed to bring her back to check for stroke. Patient does not have a slurred speech or facial droop. She is moving all 4 extremities. The concern for stroke was due to the patient being off balance and falling. Patient has progressive weakness generally without any focal deficits. [facility] Medical History Closed fracture of single pubic ramus of pelvis COPD (chronic obstructive pulmonary disease) Depression Fall HTN (hypertension) Hyperlipemia Inability to walk Osteoarthritis Home Medications alendronate 70 mg tablet 70 mg PO QWEEK supplement 01/12/24 [History Last Taken Unknown] atorvastatin 20 mg tablet 20 mg PO QHS hld 01/12/24 [History Last Taken 01/16/24] calcium carbonate 500 mg-vitamin D3 15 mcg (600 unit) tablet 1 tab PO BID calcuim 01/12/24 [History Last Taken 01/17/24] donepezil 10 mg tablet 10 mg PO QHS dementia 01/12/24 [History Last Taken 01/16/24] fluticasone fur. 100 mcg-umeclid 62.5 mcg-vilant 25 mcg inhalat.powder (Trelegy Ellipta) 1 inh inhalation DAILY COPD 01/12/24 [History Last Taken Unknown] loratadine 10 mg tablet (Loradamed) 10 mg PO DAILY congestion 01/12/24 [History Last Taken 01/17/24] montelukast 10 mg tablet 10 mg PO DAILY asthma 01/12/24 [History Last Taken 01/17/24] potassium chloride 20 mEq tablet,extended release 20 meq PO DAILY supplement 01/12/24 [History Last Taken Unknown] primidone 50 mg tablet 50 mg PO DAILY tremors 01/12/24 [History Last Taken 01/17/24] propranolol 80 mg capsule,24 hr,extended release 80 mg PO BID htn 01/12/24 [History Last Taken 01/17/24] torsemide 20 mg tablet 20 mg PO DAILY edema 01/12/24 [History Last Taken Unknown] venlafaxine 150 mg capsule,extended release 24 hr 150 mg PO DAILY depression 01/12/24 [History Last Taken 01/17/24] pantoprazole 40 mg tablet,delayed release 40 mg PO BID reflux #60 tabs 01/17/24 [Rx Last Taken Unknown] sucralfate 1 gram tablet 1 g PO 1HR_ACHS prevent ulcers #90 tabs 01/17/24 [Rx Last Taken Unknown] acetaminophen 500 mg tablet 1,000 mg (2 x 500 mg) PO Q8 #0 tabs 01/29/24 [Rx Last Taken Unknown] acidophilus 25 million cell-pectin, citrus 100 mg tablet 1 tab PO BID #0 tabs 01/29/24 [Rx Last Taken Unknown] ascorbic acid (vitamin C) 500 mg tablet 500 mg PO BIDCM #0 tabs 01/29/24 [Rx Last Taken Unknown] clonidine HCl 0.1 mg tablet 0.1 mg PO TID #0 tabs 01/29/24 [Rx Last Taken Unknown] losartan 100 mg tablet 100 mg PO DAILY #0 tabs 01/29/24 [Rx Last Taken Unknown] melatonin 10 mg sublingual tablet 10 mg PO QHS #0 tabs 01/29/24 [Rx Last Taken Unknown] oxybutynin chloride 5 mg tablet 10 mg (2 x 5 mg) PO QHS #0 tabs 01/29/24 [Rx Last Taken Unknown] polysaccharide iron complex 150 mg iron capsule (Ferrex) 150 mg PO BID #0 caps 01/29/24 [Rx Last Taken Unknown] colestipol 1 gram tablet 1 g PO BID #60 tabs 03/17/24 [Rx Last Taken Unknown] Allergy/AdvReac Type Severity Reaction Status Date / Time Penicillins Allergy Unknown NEEDS Verified 03/24/24 10:29 FOLLOW-UP Surgical History History of bowel resection Social History household members: none housing: assisted living facility Smoking Status: Former smoker alcohol intake: never substance use type: does not use ROS ROS ED Constitutional Constitutional ED: Denies chills, fever(s) or sweats Eyes Eyes: Denies blurry vision or change in vision ENT ENT ED: Denies ear pain or sore throat Cardiovascular Cardiovascular: Denies chest pain, palpitations or racing heartbeat Respiratory/Chest Respiratory/Chest: Denies cough, dyspnea or sputum Gastrointestinal Gastrointestinal: Denies abdominal pain, constipation, diarrhea, nausea or vomiting Genitourinary Genitourinary ED: Denies dysuria, hematuria or urinary frequency Musculoskeletal Musculoskeletal: Denies arthralgias, myalgias or neck pain Integumentary Denies abscess, Abrasions or rash Neurologic Neurologic: Denies headache(s), paresthesias or weakness Psychiatric Psychiatric: Denies anxiety, depression, suicidal ideation (more content not included)... Normal [facility] Erythrocyte distribution wid th ratioOrdered By: Henok Friend on 03-24-2024 Erythrocyte distribution width (RBC) [Ratio] 15.1 % 11.6-14.6 [facility] Erythrocyte distribution wid th standard deviationOrdered By: Henok Friend on 03-24-2024 Erythrocyte distribution width (RBC) [Entitic vol] 50.8 fL 35.1-43.9 [facility] Hematocrit Auto (Bld) [Volum e fraction]Ordered By: Henok Friend on 03-24-2024 Hematocrit (Bld) [Volume fraction] 44.7 % 37-47 [facility] Immature granulocytes/100 WB C Auto (Bld)Ordered By: Henok Friend on 03-24-2024 Immature granulocytes/100 WBC (Bld) 0.600 % 0.0-0.9 [facility] Comment on above: IG% - Immature Granu locytes (promyelocytes, myelocytes and metamyelocytes) > 1% indicates that a LEFT SHIFT is Present. L501.4020on 03-24-2024 TROPONIN-I HS 12 pg/mL Normal 3.0-54.0 [facility] Comment on above: Order Comment: 'TROP ' Serial specimen #1, #2 or #3: 1 Result Comment: Plea se Note: New Test Units and Gender Specific Reference Ranges. For more information see Policy Stat Procedure [place] High Sensitivity Troponin (TNIH) and attachments. Performed By: #### M 300.3896 #### [facility] [address] [place], [place], [id number] Laboratory - Chemistry and C hemistry - challengeOrdered By: Henok Friend on 03-24-2024 Albumin/Globulin [Mass ratio] 1.0 {ratio} 0.9-2.4 [facility] ALP [Catalytic activity/Vol] 231 U/L 45-117 [facility] ALT [Catalytic activity/Vol] 20 U/L 13-56 [facility] CO2 [Moles/Vol] 17.0 mmol/L 21.0-32.0 [facility] Globulin (S) [Mass/Vol] 3.8 g/dL 2.2-4.2 [facility] Urea nitrogen/Creatinine [Mass ratio] 13.1 mg/mg 10-20 [facility] Laboratory - Hematology and Cell countsOrdered By: Henok Friend on 03-24-2024 MCH (RBC) [Entitic mass] 28.7 pg 27.0-32.0 [facility] MCHC (RBC) [Mass/Vol] 31.3 g/dL 32-36 [facility] Nucleated RBC/100 WBC (Bld) [Ratio] 0 % 0-5 [facility] Platelet mean volume (Bld) [Entitic vol] 8.5 fL 6.2-12.0 [facility] Platelets (Bld) [#/Vol] 294 10*3/uL 150-450 [facility] No Panel InformationOrdered By: Henok Friend on 03-24-2024 Estimated GFR (MDRD) Amer 63 mL/min >60 [facility] Comment on above: GFR Calc Estimated GFR (MDRD) Non-Af Amer 52 mL/min >60 [facility] Comment on above: Non- GFR Calc Troponin I High Sensitivity 12 pg/mL 3.0-54.0 [facility] Comment on above: Please Note: New Karen t Units and Gender Specific Reference Ranges. For more information see Policy Stat Procedure [place] High Sensitivity Troponin (TNIH) and attachments. RBC Auto (Bld) [#/Vol]Ordere d By: Henok Friend on 03-24-2024 RBC (Bld) [#/Vol] 4.87 10*6/uL 4.2-5.4 [facility] Serum or plasma calcium courtney urement (mass/volume)Ordered By: Henok Friend on 03-24-2024 Calcium [Mass/Vol] 10.4 mg/dL 8.5-10.1 [facility] Serum or plasma creatinine m easurement (mass/volume)Ordered By: Henok Friend on 03-24-2024 Creatinine [Mass/Vol] 1.07 mg/dL 0.55-1.02 [facility] Comment on above: The validity of the calculated GFR & GFRAA in patients over 70 years has not been determined. Clinical correlation is essential. Serum or plasma urea nitroge n measurement (mass/volume)Ordered By: Henok Friend on 03-24-2024 Urea nitrogen [Mass/Vol] 14 mg/dL 7-18 [facility] Thin prep Papanicolaou smear with manual screeningOrdered By: Henok Friend on 03-24-2024 Thin prep Papanicolaou smear with manual screening 3.7 g/dL 3.2-5.0 [facility] Thin prep Papanicolaou smear with manual screening 16 U/L 15-37 [facility] Thin prep Papanicolaou smear with manual screening 6 5-15 [facility] 12 Lead EKGon 03-13-2024 12 Lead EKG [facility] Cardiovascular Services [address] [place] [address] 12 Lead EKG 03/13/24 2214 MR#: [id number] Acct: [id number] Name: ERLINDA PATHAK Rep #: [id number] : 1940 83 From: [place] Birmingham MD Attending Dr: Status: DEP ER Ordering Dr: Rg Schmid MD Date: 03/13/24 Location: ED Sex: F C Admitted: Test Reason : DYSRHYTHMIA Blood Pressure : / mmHG Vent. Rate : 068 BPM Atrial Rate : 068 BPM P-R Int : 172 ms QRS Dur : 098 ms QT Int : 418 ms P-R-T Axes : -04 033 067 degrees QTc Int : 444 ms Sinus rhythm with occasional Premature ventricular complexes Nonspecific ST and T wave abnormality Abnormal ECG Confirmed by DENISE TAMAYO, YURI ([id number]), department editor WADE RAMOS ([id number]) on 03/17/2024 10:35:39 AM Referred By: Confirmed By:ILANA BIRMINGHAM MD 03/17/24 1035 Date [place] Birmingham MD CC: Dr. Rg Schmid MD; Darcy Clifton MD Signed Normal [facility] Absolute lymphocyte countOrd ered By: Rg Schmid on 03-13-2024 Lymphocytes Auto (Unsp spec) [#/Vol] 2.13 10*3/uL 0.83-4.51 [facility] Automated lymphocyte count a s percentage of total leukocytesOrdered By: Rg Schmid on 03-13-2024 Lymphocytes/100 WBC Auto (Unsp spec) 21.1 % 19-41 [facility] Basophil percentageOrdered B y: Rg Schmid on 03-13-2024 Basophil percentage 5-10 SEEN /hpf 0-5 [facility] Basophils/100 WBC (Bld) 0.7 % 0-1 [facility] Bilirubin [Mass/Vol] 0.40 mg/dL 0.20-1.00 [facility] Comment on above: For patients on eltr ombopag therapy, use of Dimension [place] TBIL is not recommended. Chloride [Moles/Vol] 107 mmol/L 98-107 [facility] Eosinophils/100 WBC (Bld) 1.3 % 0-5 [facility] Glucose [Mass/Vol] 110 mg/dL 74-106 [facility] Comment on above: Fasting Glucose resu lt from 100 to 125 mg/dL suggests IMPAIRED HOMEOSTASIS per A.D.A. criteria. Hemoglobin (Bld) [Mass/Vol] 12.8 g/dL 12.0-15.0 [facility] Monocytes/100 WBC (Bld) 8.5 % 0-10 [facility] Neutrophils (Bld) [#/Vol] 6.8 10*3/uL 2.0-7.7 [facility] Neutrophils/100 WBC (Bld) 67.6 % 47-70 [facility] Potassium [Moles/Vol] 3.2 mmol/L 3.5-5.1 [facility] Comment on above: Slight Hemolysis, Re sult may be falsely increased. Protein [Mass/Vol] 6.7 g/dL 6.4-8.2 [facility] Sodium [Moles/Vol] 136 mmol/L 136-145 [facility] WBC (Bld) [#/Vol] 10.1 10*3/uL 4.4-11.0 [facility] Bilirubin Test strip Ql (U)O rdered By: Rg Schmid on 03-13-2024 Bilirubin Ql (U) Negative Negative [facility] CBC W/Diff, Automatedon 02-18 Absolute Lymph 2.13 X10 3/uL Normal 0.83-4.51 [facility] Comment on above: Performed By: #### M 300.4600 #### [facility] Laboratory [address] [place], [address] Absolute Neut 6.8 X10 3/uL Normal 2.0-7.7 [facility] Comment on above: Performed By: #### M [id number] #### [facility] [address] [place], [address] Basophils/100 WBC (Bld) 0.7 % Normal 0-1 [facility] Comment on above: Performed By: #### M [id number] #### [facility] [address] [place], [address] Eosinophils/100 WBC (Bld) 1.3 % Normal 0-5 [facility] Comment on above: Performed By: #### M 300.4600 #### [facility] [address] [place], [address] Erythrocyte distribution width (RBC) [Ratio] 14.5 % Normal 11.6-14.6 [facility] Comment on above: Performed By: #### M 300.4600 #### [facility] [address] [place], [address] Hematocrit (Bld) [Volume fraction] 39.8 % Normal 37-47 [facility] Comment on above: Performed By: #### M 300.4600 #### [facility] [address] [place], [address] Hemoglobin (Bld) [Mass/Vol] 12.8 g/dL Normal 12.0-15.0 [facility] Comment on above: Performed By: #### M 300.4600 #### [facility] [address] [place], [address] IG% 0.800 Normal 0.0-0.9 [facility] Comment on above: Result Comment: IG% - Immature Granulocytes (promyelocytes, myelocytes and metamyelocytes) > 1% indicates that a LEFT SHIFT is Present. Performed By: #### M 300.4600 #### [facility] [address] [place], [address] Lymphocytes/100 WBC (Bld) 21.1 % Normal 19-41 [facility] Comment on above: Performed By: #### M [id number] #### [facility] [address] [place], [address] MCH (RBC) [Entitic mass] 29.0 pg Normal 27.0-32.0 [facility] Comment on above: Performed By: #### M [id number] #### [facility] [address] [place], [address] MCHC (RBC) [Mass/Vol] 32.2 g/dL Normal 32-36 [facility] Comment on above: Performed By: #### M 300.4600 #### [facility] [address] [place], [address] MCV (RBC) [Entitic vol] 90.2 fL Normal 81-99 [facility] Comment on above: Performed By: #### M 300.4600 #### [facility] [address] [place], [address] Monocytes/100 WBC (Bld) 8.5 % Normal 0-10 [facility] Comment on above: Performed By: #### M 300.4600 #### [facility] [address] [place], [address] Neutrophils/100 WBC (Bld) 67.6 % Normal 47-70 [facility] Comment on above: Performed By: #### M 300.4600 #### [facility] [address] [place], [address] Nucleated RBC (Bld) [#/Vol] 0 10*3/uL Normal 0-5 [facility] Comment on above: Performed By: #### M 300.4600 #### [facility] [address] [place], [address] Platelet mean volume (Bld) [Entitic vol] 8.9 fL Normal 6.2-12.0 [facility] Comment on above: Performed By: #### M 300.4600 #### [facility] [address] [place], [address] Platelets (Bld) [#/Vol] 235 10*3/uL Normal 150-450 [facility] Comment on above: Performed By: #### M 300.4600 #### [facility] [address] [place], [address] RBC (Bld) [#/Vol] 4.41 10*6/uL Normal 4.2-5.4 [facility] Comment on above: Performed By: #### M 300.4600 #### [facility] [address] [place], [address] RDW SD 47.5 fl High 35.1-43.9 [facility] Comment on above: Performed By: #### M 300.4600 #### [facility] [address] [place], [address] WBC (Bld) [#/Vol] 10.1 10*3/uL Normal 4.4-11.0 [facility] Comment on above: Performed By: #### M 300.4600 #### [facility] [address] [place], [address] Chest 1 View (Portable)on Chest 1 View (Portable) [facility] Imaging Services [address] [place] [address] Chest 1 View (Portable) MR#: [id number] Acct: [id number] Name: ERLINDA PATHAK Rep #: [id number] : 1940 F 83 From: Mic Patel MD PCP: Darcy Clifton MD Status: REG ER Study: Chest 1 View (Portable) Date of Exam: 03/13/24 Exam# [id number] Ordering Dr: Rg Schmid MD [id number] EXAM: XR CHEST, 1 VIEW CLINICAL INDICATION: CAD TECHNIQUE: Frontal view of the chest. COMPARISON: 01/12/2024 FINDINGS: LUNGS AND PLEURAL SPACES: Unremarkable. No consolidation or edema. No pneumothorax. No effusion. HEART: Unremarkable. Cardiac silhouette not enlarged. MEDIASTINUM: Central airways and mediastinal contour are unremarkable. BONES/JOINTS: Unremarkable. No acute fracture. SOFT TISSUES: Unremarkable. RAD/Chest 1 View (Portable) IMPRESSION: No radiographic evidence of acute cardiopulmonary disease. Electronically Signed: Mic Patel MD at 0:16 EDT , CC: Dr. Rg Schmid MD; Darcy Clifton MD Admissions Consultant: Signed Normal [facility] Comprehensive Metabolic Prof ilon 03-13-2024 Albumin [Mass/Vol] 3.5 g/dL Normal 3.2-5.0 [facility] Comment on above: Performed By: #### M [id number] #### [facility] Laboratory [address] [place], [place], [id number] Albumin/Globulin [Mass ratio] 1.1 {ratio} Normal 0.9-2.4 [facility] Comment on above: Performed By: #### M 300.4602 #### [facility] [address] [place], [address] ALK P 190 U/L High 45-117 [facility] Comment on above: Performed By: #### M 300.4600 #### [facility] [address] [place], [address] ALT [Catalytic activity/Vol] 16 U/L Normal 13-56 [facility] Comment on above: Performed By: #### M 300.4600 #### [facility] [address] [place], [address] AST [Catalytic activity/Vol] 18 U/L Normal 15-37 [facility] Comment on above: Result Comment: Slig ht Hemolysis, Result may be falsely increased. Performed By: #### M 300.4600 #### [facility] [address] [place], [address] Bilirubin [Mass/Vol] 0.40 mg/dL Normal 0.20-1.00 [facility] Comment on above: Result Comment: For patients on eltrombopag therapy, use of Dimension [place] TBIL is not recommended. Performed By: #### M 300.4600 #### [facility] [address] [place], [address] BUN/CRE 20.3 RATIO High 10-20 [facility] Comment on above: Performed By: #### M 300.4600 #### [facility] [address] [place], [address] CA,Total 9.7 mg/dL Normal 8.5-10.1 [facility] Comment on above: Performed By: #### M 300.4600 #### [facility] [address] [place], [address] Chloride [Moles/Vol] 107 mmol/L Normal 98-107 [facility] Comment on above: Performed By: #### M 300.4600 #### [facility] [address] [place], [address] CO2 [Moles/Vol] 21.0 mmol/L Normal 21.0-32.0 [facility] Comment on above: Performed By: #### M 300.4600 #### [facility] [address] [place], [address] Creatinine [Mass/Vol] 1.23 mg/dL High 0.55-1.02 [facility] Comment on above: Result Comment: The validity of the calculated GFR GFRAA in patients over 70 years has not been determined. Clinical correlation is essential. Performed By: #### M 300.4600 #### [facility] [address] [place], [address] ECRCL 30.98 ml/min Normal [facility] Comment on above: Performed By: #### M 300.4600 #### [facility] [address] [place], [address] EST GFR - AA 54 mL/min Low >60 [facility] Comment on above: Result Comment: Afri can [place] GFR Calc Performed By: #### M 300.4600 #### [facility] [address] [place], [address] GAP 8 Normal 5-15 [facility] Comment on above: Performed By: #### M 300.4600 #### [facility] [address] [place], [address] GFR/1.73 sq M.predicted among non-blacks MDRD (S/P/Bld) [Vol rate/Area] 45 mL/min/{1.73_m2} Low >60 [facility] Comment on above: Result Comment: Non- GFR Calc Performed By: #### M 300.4600 #### [facility] [address] [place], [address] Globulin (S) [Mass/Vol] 3.2 g/dL Normal 2.2-4.2 [facility] Comment on above: Performed By: #### M 300.4600 #### [facility] [address] [place], [address] Glucose [Mass/Vol] 110 mg/dL High 74-106 [facility] Comment on above: Result Comment: Fast ing Glucose result from 100 to 125 mg/dL suggests IMPAIRED HOMEOSTASIS per A.D.A. criteria. Performed By: #### M 300.4600 #### [facility] [address] [place], [address] Potassium [Moles/Vol] 3.2 mmol/L Low 3.5-5.1 [facility] Comment on above: Result Comment: Slig ht Hemolysis, Result may be falsely increased. Performed By: #### M 300.4600 #### [facility] [address] [place], [address] Sodium [Moles/Vol] 136 mmol/L Normal 136-145 [facility] Comment on above: Performed By: #### M 300.4600 #### [facility] [address] [place], [address] T PROT 6.7 g/dL Normal 6.4-8.2 [facility] Comment on above: Performed By: #### M [id number] #### [facility] [address] [place], [address] Urea nitrogen [Mass/Vol] 25 mg/dL High 7-18 [facility] Comment on above: Performed By: #### M [id number] #### [facility] [address] [place], [address] Determination of erythrocyte mean corpuscular volume (MCV)Ordered By: Rg Schmid on 03-13-2024 MCV (RBC) [Entitic vol] 90.2 fL 81-99 [facility] Emergency Department Summary on 03-13-2024 Emergency Department Summary [facility] Medical Records Department [address] [place] [address] Emergency Department Summary 03/13/24 MR#: [id number] Acct: [id number] Name: ERLINDA PATHAK Rep #: [id number] : 1940 83 From: Rg Schmid MD PCP: Darcy Clifton MD Status:REG ER Location: ED HPI History of Present Illness Chief Complaint: General Illness Narrative Narrative: 83-year-old female presents from the [place] with her daughters because of multiple complaints. She has been having more frequent falls. They relate history that she had a pelvis fracture a few months ago and spent 3 weeks in the hospital and [facility] She has been there for the last month. She has had more frequent falls. She states it is mainly because she leaves her walker across the room and tries to ambulate. She fell again this evening 3 hours ago. She denies hitting her head or loss of consciousness. However, her daughters have been noting that she has been having more confusion lately. She has had urinary frequency but has history of overactive bladder according to the chart. Additionally, they comment on her losing weight over the last few weeks. She has been more weak. Patient denies fevers or chills, no cough or other symptoms. 1 daughter did notice that she had a lower pulse ox when [facility] Medical History Closed fracture of single pubic ramus of pelvis COPD (chronic obstructive pulmonary disease) Depression Fall HTN (hypertension) Hyperlipemia Inability to walk Osteoarthritis Home Medications alendronate 70 mg tablet 70 mg PO QWEEK supplement 01/12/24 [History Last Taken Unknown] atorvastatin 20 mg tablet 20 mg PO QHS hld 01/12/24 [History Last Taken 01/16/24] calcium carbonate 500 mg-vitamin D3 15 mcg (600 unit) tablet 1 tab PO BID calcuim 01/12/24 [History Last Taken 01/17/24] donepezil 10 mg tablet 10 mg PO QHS dementia 01/12/24 [History Last Taken 01/16/24] fluticasone fur. 100 mcg-umeclid 62.5 mcg-vilant 25 mcg inhalat.powder (Trelegy Ellipta) 1 inh inhalation DAILY COPD 01/12/24 [History Last Taken Unknown] loratadine 10 mg tablet (Loradamed) 10 mg PO DAILY congestion 01/12/24 [History Last Taken 01/17/24] montelukast 10 mg tablet 10 mg PO DAILY asthma 01/12/24 [History Last Taken 01/17/24] potassium chloride 20 mEq tablet,extended release 20 meq PO DAILY supplement 01/12/24 [History Last Taken Unknown] primidone 50 mg tablet 50 mg PO DAILY tremors 01/12/24 [History Last Taken 01/17/24] propranolol 80 mg capsule,24 hr,extended release 80 mg PO BID htn 01/12/24 [History Last Taken 01/17/24] torsemide 20 mg tablet 20 mg PO DAILY edema 01/12/24 [History Last Taken Unknown] venlafaxine 150 mg capsule,extended release 24 hr 150 mg PO DAILY depression 01/12/24 [History Last Taken 01/17/24] pantoprazole 40 mg tablet,delayed release 40 mg PO BID reflux #60 tabs 01/17/24 [Rx Last Taken Unknown] sucralfate 1 gram tablet 1 g PO 1HR_ACHS prevent ulcers #90 tabs 01/17/24 [Rx Last Taken Unknown] acetaminophen 500 mg tablet 1,000 mg (2 x 500 mg) PO Q8 #0 tabs 01/29/24 [Rx Last Taken Unknown] acidophilus 25 million cell-pectin, citrus 100 mg tablet 1 tab PO BID #0 tabs 01/29/24 [Rx Last Taken Unknown] ascorbic acid (vitamin C) 500 mg tablet 500 mg PO BIDCM #0 tabs 01/29/24 [Rx Last Taken Unknown] clonidine HCl 0.1 mg tablet 0.1 mg PO TID #0 tabs 01/29/24 [Rx Last Taken Unknown] losartan 100 mg tablet 100 mg PO DAILY #0 tabs 01/29/24 [Rx Last Taken Unknown] melatonin 10 mg sublingual tablet 10 mg PO QHS #0 tabs 01/29/24 [Rx Last Taken Unknown] oxybutynin chloride 5 mg tablet 10 mg (2 x 5 mg) PO QHS #0 tabs 01/29/24 [Rx Last Taken Unknown] polysaccharide iron complex 150 mg iron capsule (Ferrex) 150 mg PO BID #0 caps 01/29/24 [Rx Last Taken Unknown] Allergy/AdvReac Type Severity Reaction Status Date / Time Penicillins Allergy Unknown NEEDS Verified 03/13/24 21:35 FOLLOW-UP Surgical History History of bowel resection Social History household members: none housing: assisted living facility Smoking Status: Former smoker alcohol intake: never substance use type: does not use ROS ROS ED ROS Narrative Limited secondary to age. Constitutional: No fever, no chills. Positive generalized weakness per daughters. Frequent falls. HEENT: No sore throat. No neck pain. No loss of vision. No rhinorrhea. Cardiovascular: No chest pain. No palpitations. No pedal edema. Respiratory: No cough, no shortness of breath. Abdominal: No abdominal pain. No nausea. No vomiting. Positive weight loss. Being worked up for diarrhea by Dr. Bell. Genitourinary: No dysuria. No hematuria. Positive urinary frequency. Musculoskeletal (more content not included)... Normal [facility] Erythrocyte distribution wid th ratioOrdered By: Rg Schmid on 03-13-2024 Erythrocyte distribution width (RBC) [Ratio] 14.5 % 11.6-14.6 [facility] Erythrocyte distribution wid th standard deviationOrdered By: Rg Schmid on 03-13-2024 Erythrocyte distribution width (RBC) [Entitic vol] 47.5 fL 35.1-43.9 [facility] Hematocrit Auto (Bld) [Volum e fraction]Ordered By: Rg Schmid on 03-13-2024 Hematocrit (Bld) [Volume fraction] 39.8 % 37-47 [facility] Hyaline casts LM.LPF (Urine sed) [#/Area]Ordered By: Rg Schmid on 03-13-2024 Hyaline casts (Urine sed) [#/Area] 0 /[LPF] 0-5 [facility] Immature granulocytes/100 WB C Auto (Bld)Ordered By: Rg Schmid on 03-13-2024 Immature granulocytes/100 WBC (Bld) 0.800 % 0.0-0.9 [facility] Comment on above: IG% - Immature Granu locytes (promyelocytes, myelocytes and metamyelocytes) > 1% indicates that a LEFT SHIFT is Present. Ketones Test strip Ql (U)Ord ered By: Rg Schmid on 03-13-2024 Ketones Ql (U) Negative Negative [facility] Laboratory - Chemistry and C hemistry - challengeOrdered By: Rg Schmid on 03-13-2024 Albumin/Globulin [Mass ratio] 1.1 {ratio} 0.9-2.4 [facility] ALP [Catalytic activity/Vol] 190 U/L 45-117 [facility] ALT [Catalytic activity/Vol] 16 U/L 13-56 [facility] CO2 [Moles/Vol] 21.0 mmol/L 21.0-32.0 [facility] Globulin (S) [Mass/Vol] 3.2 g/dL 2.2-4.2 [facility] Urea nitrogen/Creatinine [Mass ratio] 20.3 mg/mg 10-20 [facility] Laboratory - Hematology and Cell countsOrdered By: Rg Schmid on 03-13-2024 MCH (RBC) [Entitic mass] 29.0 pg 27.0-32.0 [facility] MCHC (RBC) [Mass/Vol] 32.2 g/dL 32-36 [facility] Nucleated RBC/100 WBC (Bld) [Ratio] 0 % 0-5 [facility] Platelet mean volume (Bld) [Entitic vol] 8.9 fL 6.2-12.0 [facility] Platelets (Bld) [#/Vol] 235 10*3/uL 150-450 [facility] Mucus LM Ql (Urine sed)Order ed By: Rg Schmid on 03-13-2024 Mucus Ql (Urine sed) 0 SEEN /hpf [facility] Nitrite Test strip Ql (U)Ord ered By: Rg Schmid on 03-13-2024 Nitrite Ql (U) Negative Negative [facility] No Panel InformationOrdered By: Rg Schmid on 03-13-2024 Urine RBC 0 SEEN /hpf 0-5 [facility] Estimated Creatinine Clearance Calc 30.98 ml/min [facility] Estimated GFR (MDRD) Amer 54 mL/min >60 [facility] Comment on above: GFR Calc Estimated GFR (MDRD) Non-Af Amer 45 mL/min >60 [facility] Comment on above: Non- GFR Calc Protein Test strip Ql (U)Ord ered By: Rg Schmid on 03-13-2024 Protein Ql (U) 15 mg/dl Negative [facility] RBC Auto (Bld) [#/Vol]Ordere d By: Rg Schmid on 03-13-2024 RBC (Bld) [#/Vol] 4.41 10*6/uL 4.2-5.4 [facility] Serum or plasma calcium courtney urement (mass/volume)Ordered By: Rg Schmid on 03-13-2024 Calcium [Mass/Vol] 9.7 mg/dL 8.5-10.1 [facility] Serum or plasma creatinine m easurement (mass/volume)Ordered By: Rg Schmid on 03-13-2024 Creatinine [Mass/Vol] 1.23 mg/dL 0.55-1.02 [facility] Comment on above: The validity of the calculated GFR & GFRAA in patients over 70 years has not been determined. Clinical correlation is essential. Serum or plasma urea nitroge n measurement (mass/volume)Ordered By: Rg Schmid on 03-13-2024 Urea nitrogen [Mass/Vol] 25 mg/dL 7-18 [facility] Squamous epithelial cells de tection in urine sediment by light microscopyOrdered By: Rg Schmid on 03-13-2024 Epithelial cells.squamous LM Ql (Urine sed) 0-5 SEEN /hpf 5-10 [facility] Thin prep Papanicolaou smear with manual screeningOrdered By: Rg Schmid on 03-13-2024 Thin prep Papanicolaou smear with manual screening 3.5 g/dL 3.2-5.0 [facility] Thin prep Papanicolaou smear with manual screening 18 U/L 15-37 [facility] Comment on above: Slight Hemolysis, Re sult may be falsely increased. Thin prep Papanicolaou smear with manual screening 8 5-15 [facility] Urinalysis, Completeon 03-13 [facility] Normal None Seen [facility] Comment on above: Order Comment: COLLE CTOR TO SPECIFY Performed By: #### M [id number] #### [facility] [address] [place], [address] CAST,HYALINE 0-5 SEEN Normal 0-5 [facility] Comment on above: Order Comment: JEANETH CTOR TO SPECIFY Performed By: #### M [id number] #### [facility] [address] [place], [address] EPI,SQUAMOUS 0-5 SEEN Normal 5-10 [facility] Comment on above: Order Comment: JEANETH CTOR TO SPECIFY Performed By: #### M [id number] #### [facility] [address] [place], [address] WBC 5-10 SEEN Normal 0-5 [facility] Comment on above: Order Comment: JEANETH CTOR TO SPECIFY Performed By: #### M [id number] #### [facility] [address] [place], [address] Mucus Ql (Urine sed) 0 SEEN Normal [facility] Comment on above: Order Comment: JEANETH CTOR TO SPECIFY Performed By: #### M [id number] #### [facility] [address] [place], [address] RBC 0 SEEN Normal 0-5 [facility] Comment on above: Order Comment: JEANETH CTOR TO SPECIFY Performed By: #### M [id number] #### [facility] [address] [place], [address] Urine blood detectionOrdered By: Rg Schmid on 03-13-2024 RBC Ql (U) Negative Negative [facility] Urine clarityOrdered By: Radha Schmid on 03-13-2024 Clarity (U) Clear Clear [facility] Urine color determinationOrd ered By: Rg Schmid on 03-13-2024 Color (U) Yellow Yellow [facility] Urine glucose detectionOrder ed By: Rg Schmid on 03-13-2024 Glucose Ql (U) Normal mg/dl Normal [facility] Urine leukocyte esterase det ection by dipstickOrdered By: Rg Schmid on 03-13-2024 Leukocyte esterase Test strip Ql (U) 500 /ul Negative [facility] Urine pHOrdered By: Rg blackwell on 03-13-2024 pH (U) 6.0 [pH] 5.0 - 8.0 [facility] Urine sediment bacteria coun t by microscopy (number/high power field)Ordered By: Rg Schmid on 03-13-2024 Bacteria LM.HPF (Urine sed) [#/Area] RARE /hpf None Seen [facility] Urine specific gravity measu rementOrdered By: Rg Schmid on 03-13-2024 Specific gravity (U) [Rel density] 1.010 1.002-1.030 [facility] Urine urobilinogen measureme ntOrdered By: Rg Schmid on 03-13-2024 Urobilinogen Ql (U) Normal mg/dl Normal [facility] Gastroenterology Visit Repor ton 02-21-2024 Gastroenterology Visit Report [facility] [address] [place] [address] OFFICE VISIT Date of Service: 02/21/24 MR#: [id number] Acct: [id number] Name: ERLINDA PATHAK Rep #: [id number] : 1940 Provider: Jonathan Bell DO Age/Sex: 83/F Location: [facility] [place].[facility] Status: Signed Intake Vital Signs 01/28/24 15:35 Height 5 ft 4 in Intake Visit Reasons: Hospital FU Chief Complaint: s/p fall, pubic fx Allergies Penicillins Allergy (Unknown, Verified 01/12/24 12:15) NEEDS FOLLOW-UP [facility] Medical History (Updated 02/21/24 @ 16:[address] Jonathan Bell DO) Closed fracture of single pubic ramus of pelvis COPD (chronic obstructive pulmonary disease) Depression Fall HTN (hypertension) Hyperlipemia Inability to walk Osteoarthritis Surgical History History of bowel resection Social History (Updated 01/17/24 @ 20:[address] Curtis Ye MD) household members: none housing: assisted living facility Smoking Status: Former smoker alcohol intake: never substance use type: does not use HPI HPI Chief Complaint: s/p fall, pubic fx Details: ERLINDA PATHAK, is a 83 F who presents to the office today for HFU. Pt following up after hospitalization for mechanical fall and upper GI bleed. OV 4.4.24- Pt reports she is well since hospital. Is not having dizziness, SOB or weakness. No abdominal pain, heartburn or dysphagia. States her stools are still dark. Cont. oral iron. Family reports she was having dark stools prior to the ER visit. Was surprised she had ulcers as she has never had or complained of sx. Exam Const General: cooperative and comfortable Nutritional Appearance: average body habitus and well nourished HENMT Head: normal to inspection Ears: hearing grossly normal bilaterally Nose: external nose normal Face and sinus: normal facial exam Mouth: oral mucosae normal Throat: posterior oropharynx normal Eyes General: appearance normal, both eyes and all related structures Neck Neck: normal visual inspection Chest Chest palpation inspection: normal inspection of the chest and normal palpation of entire chest wall Resp Effort Inspection: normal respiratory effort Auscultation: Bilateral: Clear to Auscultation Cardio Palpation: normal PMI Rate: regular rate Rhythm: regular rhythm GI Inspection: normal to inspection Auscultation: normal bowel sounds Percussion: normal to percussion Palpation: no hepatosplenomegaly Skin General: no rashes or lesions noted Neuro General: patient alert Extrem General: normal to inspection Psych Affect: normal affect Quality Reporting Tobacco Screening ([facility] 138) Smoking Status: Former smoker Assessment and Plan Assessment and Plan (1) GI bleed: Status: Acute (2) Thrombocytopenia: Status: Acute (3) Anemia: Status: Acute Plan: She is doing a lot better. Her hemoglobin has gone up to 10.3. It was down at 6.5. She received 2 units packed red blood cell and iron transfusion. She is on oral iron without vitamin C. Recommendations are to add vitamin C to oral iron. We will also get iron, CBC, ferritin, reticulocyte count and transferrin saturation. I told her to titrate her iron to constipation. Currently taking it once a day. I would like her to increase it to 3 times a day to see if it does cause constipation if it does take down to twice a day plus stool softener. Coding Level of Care Code Off vis,est,level 4 Diagnoses GI bleed K92.2 Thrombocytopenia D69.6 Anemia D64.9 02/21/241655 Date Jonathan Friend DO Donaldo Signature: Date (if applicable) CC: Normal [facility] Absolute lymphocyte countOrd ered By: Curtis Ye on 02-01-2024 Lymphocytes Auto (Unsp spec) [#/Vol] 2.05 10*3/uL 0.83-4.51 [facility] Automated lymphocyte count a s percentage of total leukocytesOrdered By: Curtis Ye on 02-01-2024 Lymphocytes/100 WBC Auto (Unsp spec) 21.5 % 19-41 [facility] Basophil percentageOrdered B y: Curtis Ye on 02-01-2024 Basophils/100 WBC (Bld) 0.9 % 0-1 [facility] Chloride [Moles/Vol] 107 mmol/L 98-107 [facility] Eosinophils/100 WBC (Bld) 3.7 % 0-5 [facility] Glucose [Mass/Vol] 90 mg/dL 74-106 [facility] Hemoglobin (Bld) [Mass/Vol] 10.4 g/dL 12.0-15.0 [facility] Monocytes/100 WBC (Bld) 11.5 % 0-10 [facility] Neutrophils (Bld) [#/Vol] 5.9 10*3/uL 2.0-7.7 [facility] Neutrophils/100 WBC (Bld) 61.7 % 47-70 [facility] Potassium [Moles/Vol] 3.8 mmol/L 3.5-5.1 [facility] Sodium [Moles/Vol] 141 mmol/L 136-145 [facility] WBC (Bld) [#/Vol] 9.5 10*3/uL 4.4-11.0 [facility] Determination of erythrocyte mean corpuscular volume (MCV)Ordered By: Curtis Ye on 02-01-2024 MCV (RBC) [Entitic vol] 92.8 fL 81-99 [facility] Erythrocyte distribution wid th ratioOrdered By: Curtis Ye on 02-01-2024 Erythrocyte distribution width (RBC) [Ratio] 14.8 % 11.6-14.6 [facility] Erythrocyte distribution wid th standard deviationOrdered By: [facility] on 02-01-2024 Erythrocyte distribution width (RBC) [Entitic vol] 50.1 fL 35.1-43.9 [facility] Hematocrit Auto (Bld) [Volum e fraction]Ordered By: Curtis Ye on 02-01-2024 Hematocrit (Bld) [Volume fraction] 33.4 % 37-47 [facility] Immature granulocytes/100 WB C Auto (Bld)Ordered By: [facility] 02-01-2024 Immature granulocytes/100 WBC (Bld) 0.700 % 0.0-0.9 [facility] Comment on above: IG% - Immature Granu locytes (promyelocytes, myelocytes and metamyelocytes) > 1% indicates that a LEFT SHIFT is Present. Laboratory - Chemistry and C hemistry - challengeOrdered By: Curtis Ye 02-01-2024 CO2 [Moles/Vol] 28.0 mmol/L 21.0-32.0 [facility] Urea nitrogen/Creatinine [Mass ratio] 23.4 mg/mg 10-20 [facility] - Hematology and Cell countsOrdered By: Curtis Ephraim 02-01-2024 MCH (RBC) [Entitic mass] 28.9 pg 27.0-32.0 [facility] MCHC (RBC) [Mass/Vol] 31.1 g/dL 32-36 [facility] Nucleated RBC/100 WBC (Bld) [Ratio] 0 % 0-5 [facility] Platelet mean volume (Bld) [Entitic vol] 8.6 fL 6.2-12.0 [facility] Platelets (Bld) [#/Vol] 404 10*3/uL 150-450 [facility] No Panel InformationOrdered By: Curtis Ye 02-01-2024 Estimated Creatinine Clearance Calc 47.63 ml/min [facility] Estimated GFR (MDRD) Amer 135 mL/min >60 [facility] Comment on above: GFR Calc Estimated GFR (MDRD) Non-Af Amer 112 mL/min >60 [facility] Comment on above: Non- GFR Calc RBC Auto (Bld) [#/Vol]Ordere d By: Curtis Ye on 02-01-2024 RBC (Bld) [#/Vol] 3.60 10*6/uL 4.2-5.4 [facility] Serum or plasma calcium courtney urement (mass/volume)Ordered By: Curtis Ye on 02-01-2024 Calcium [Mass/Vol] 9.0 mg/dL 8.5-10.1 [facility] Serum or plasma creatinine m easurement (mass/volume)Ordered By: Curtis Ye on 02-01-2024 Creatinine [Mass/Vol] 0.56 mg/dL 0.55-1.02 [facility] Comment on above: The validity of the calculated GFR & GFRAA in patients over 70 years has not been determined. Clinical correlation is essential. Serum or plasma urea nitroge n measurement (mass/volume)Ordered By: Curtis Ye on 02-01-2024 Urea nitrogen [Mass/Vol] 13 mg/dL 7-18 [facility] Thin prep Papanicolaou smear with manual screeningOrdered By: Curtis Ye on 02-01-2024 Thin prep Papanicolaou smear with manual screening 6 5-15 [facility] Iron measurement (mass/mass) Ordered By: Curtis Ye on 01-29-2024 Iron (Unsp spec) [Mass/Mass] 44 ug/dL 50-170 [facility] Absolute lymphocyte countOrd ered By: Kristie Lau on 01-17-2024 Lymphocytes Auto (Unsp spec) [#/Vol] 1.48 10*3/uL 0.83-4.51 [facility] Automated lymphocyte count a s percentage of total leukocytesOrdered By: Kristie Lau on 01-17-2024 Lymphocytes/100 WBC Auto (Unsp spec) 16.3 % 19-41 [facility] Basophil percentageOrdered B y: Kristie Lau on 01-17-2024 Basophils/100 WBC (Bld) 0.7 % 0-1 [facility] Chloride [Moles/Vol] 110 mmol/L 98-107 [facility] Eosinophils/100 WBC (Bld) 5.6 % 0-5 [facility] Glucose [Mass/Vol] 91 mg/dL 74-106 [facility] Hemoglobin (Bld) [Mass/Vol] 9.2 g/dL 12.0-15.0 [facility] Monocytes/100 WBC (Bld) 9.6 % 0-10 [facility] Neutrophils (Bld) [#/Vol] 6.0 10*3/uL 2.0-7.7 [facility] Neutrophils/100 WBC (Bld) 66.6 % 47-70 [facility] Potassium [Moles/Vol] 3.8 mmol/L 3.5-5.1 [facility] Sodium [Moles/Vol] 140 mmol/L 136-145 [facility] WBC (Bld) [#/Vol] 9.1 10*3/uL 4.4-11.0 [facility] Determination of erythrocyte mean corpuscular volume (MCV)Ordered By: Kristie Lau on 01-17-2024 MCV (RBC) [Entitic vol] 93.5 fL 81-99 [facility] Erythrocyte distribution wid th ratioOrdered By: Kristie Judi on 01-17-2024 Erythrocyte distribution width (RBC) [Ratio] 15.2 % 11.6-14.6 [facility] Erythrocyte distribution wid th standard deviationOrdered By: Kristieakin Lau on 01-17-2024 Erythrocyte distribution width (RBC) [Entitic vol] 50.2 fL 35.1-43.9 [facility] Hematocrit Auto (Bld) [Volum e fraction]Ordered By: Kristie Lau on 01-17-2024 Hematocrit (Bld) [Volume fraction] 29.0 % 37-47 [facility] Immature granulocytes/100 WB C Auto (Bld)Ordered By: Kristie Lau on 01-17-2024 Immature granulocytes/100 WBC (Bld) 1.200 % 0.0-0.9 [facility] Comment on above: IG% - Immature Granu locytes (promyelocytes, myelocytes and metamyelocytes) > 1% indicates that a LEFT SHIFT is Present. Laboratory - Chemistry and C hemistry - challengeOrdered By: Kristie Lau on 01-17-2024 CO2 [Moles/Vol] 30.0 mmol/L 21.0-32.0 [facility] Urea nitrogen/Creatinine [Mass ratio] 22.0 mg/mg 10-20 [facility] - Hematology and Cell countsOrdered By: Kristie Lau on 01-17-2024 MCH (RBC) [Entitic mass] 29.7 pg 27.0-32.0 [facility] MCHC (RBC) [Mass/Vol] 31.7 g/dL 32-36 [facility] Nucleated RBC/100 WBC (Bld) [Ratio] 1.2 % 0-5 [facility] Platelet mean volume (Bld) [Entitic vol] 9.3 fL 6.2-12.0 [facility] Platelets (Bld) [#/Vol] 197 10*3/uL 150-450 [facility] No Panel InformationOrdered By: Kristie Lau on 01-17-2024 Estimated Creatinine Clearance Calc 53.96 ml/min [facility] Estimated GFR (MDRD) Amer 152 mL/min >60 [facility] Comment on above: GFR Calc Estimated GFR (MDRD) Non-Af Amer 125 mL/min >60 [facility] Comment on above: Non- GFR Calc RBC Auto (Bld) [#/Vol]Ordere d By: Kristie Lau on 01-17-2024 RBC (Bld) [#/Vol] 3.10 10*6/uL 4.2-5.4 [facility] Serum or plasma calcium courtney urement (mass/volume)Ordered By: Kristie Lau on 01-17-2024 Calcium [Mass/Vol] 8.6 mg/dL 8.5-10.1 [facility] Serum or plasma creatinine m easurement (mass/volume)Ordered By: Kristie Lau on 01-17-2024 Creatinine [Mass/Vol] 0.50 mg/dL 0.55-1.02 [facility] Comment on above: The validity of the calculated GFR & GFRAA in patients over 70 years has not been determined. Clinical correlation is essential. Serum or plasma urea nitroge n measurement (mass/volume)Ordered By: Kristie Lau on 01-17-2024 Urea nitrogen [Mass/Vol] 11 mg/dL 7-18 [facility] Thin prep Papanicolaou smear with manual screeningOrdered By: Kristie Lau on 01-17-2024 Thin prep Papanicolaou smear with manual screening 0 5-15 [facility] Lower GI hemoglobin IA Ql (S tl)Ordered By: Kristie Lau on 01-15-2024 Stool Occult Blood (JACK) Positive [facility] Iron measurement (mass/mass) Ordered By: Kristie Lau on 01-14-2024 Iron (Unsp spec) [Mass/Mass] 38 ug/dL 50-170 [facility] - Chemistry and C hemistry - challengeOrdered By: Kristie Lau on 01-14-2024 Ferritin [Mass/Vol] 64 ng/mL 8-252 [facility] No Panel InformationOrdered By: Kristie Lau on 01-14-2024 Total Iron Binding Capacity 460 ug/dL 250-450 [facility] Serum or plasma iron saturat ion measurement (mass fraction)Ordered By: Kristie Lau on 01-14-2024 Iron saturation [Mass fraction] 8.3 % 15.0-55.0 [facility] Absolute lymphocyte countOrd ered By: Michaela Babcock on 01-12-2024 Lymphocytes Auto (Unsp spec) [#/Vol] 1.05 10*3/uL 0.83-4.51 [facility] Automated lymphocyte count a s percentage of total leukocytesOrdered By: Michaela Babcock on 01-12-2024 Lymphocytes/100 WBC Auto (Unsp spec) 6.6 % 19-41 [facility] Basophil percentageOrdered B y: Michaela Babcock on 01-12-2024 Basophils/100 WBC (Bld) 0.4 % 0-1 [facility] Chloride [Moles/Vol] 106 mmol/L 98-107 [facility] Eosinophils/100 WBC (Bld) 0.2 % 0-5 [facility] Glucose [Mass/Vol] 136 mg/dL 74-106 [facility] Comment on above: Fasting Glucose resu lt greater than or equal to 126 mg/dL suggests DIABETES MELLITUS per A.D.A. criteria. Hemoglobin (Bld) [Mass/Vol] 11.1 g/dL 12.0-15.0 [facility] Monocytes/100 WBC (Bld) 4.7 % 0-10 [facility] Neutrophils (Bld) [#/Vol] 14.0 10*3/uL 2.0-7.7 [facility] Neutrophils/100 WBC (Bld) 87.3 % 47-70 [facility] Potassium [Moles/Vol] 4.3 mmol/L 3.5-5.1 [facility] Sodium [Moles/Vol] 142 mmol/L 136-145 [facility] WBC (Bld) [#/Vol] 16.0 10*3/uL 4.4-11.0 [facility] Basophil percentage 0 SEEN /hpf 0-5 [facility] Bilirubin Test strip Ql (U)O rdered By: Michaela Babcock on 01-12-2024 Bilirubin Ql (U) Negative Negative [facility] Determination of erythrocyte mean corpuscular volume (MCV)Ordered By: Michaela Babcock on 01-12-2024 MCV (RBC) [Entitic vol] 91.0 fL 81-99 [facility] Erythrocyte distribution wid th ratioOrdered By: Michaela Babcock on 01-12-2024 Erythrocyte distribution width (RBC) [Ratio] 14.7 % 11.6-14.6 [facility] Erythrocyte distribution wid th standard deviationOrdered By: Michaela Babcock on 01-12-2024 Erythrocyte distribution width (RBC) [Entitic vol] 49.2 fL 35.1-43.9 [facility] Hematocrit Auto (Bld) [Volum e fraction]Ordered By: Michaela Babcock on 01-12-2024 Hematocrit (Bld) [Volume fraction] 35.4 % 37-47 [facility] Immature granulocytes/100 WB C Auto (Bld)Ordered By: Michaela Babcock on 01-12-2024 Immature granulocytes/100 WBC (Bld) 0.800 % 0.0-0.9 [facility] Comment on above: IG% - Immature Granu locytes (promyelocytes, myelocytes and metamyelocytes) > 1% indicates that a LEFT SHIFT is Present. Ketones Test strip Ql (U)Ord ered By: Michaela Babcock on 01-12-2024 Ketones Ql (U) Negative Negative [facility] - Chemistry and C hemistry - challengeOrdered By: Amanda Jeter on 01-12-2024 CK [Catalytic activity/Vol] 125 U/L 26-192 [facility] - Chemistry and C hemistry - challengeOrdered By: Michaela Babcock on 01-12-2024 CO2 [Moles/Vol] 32.0 mmol/L 21.0-32.0 [facility] Urea nitrogen/Creatinine [Mass ratio] 21.0 mg/mg 10-20 [facility] - Hematology and Cell countsOrdered By: Michaela Babcock on 01-12-2024 MCH (RBC) [Entitic mass] 28.5 pg 27.0-32.0 [facility] MCHC (RBC) [Mass/Vol] 31.4 g/dL 32-36 [facility] Nucleated RBC/100 WBC (Bld) [Ratio] 0 % 0-5 [facility] Platelet mean volume (Bld) [Entitic vol] 9.7 fL 6.2-12.0 [facility] Platelets (Bld) [#/Vol] 166 10*3/uL 150-450 [facility] Mucus LM Ql (Urine sed)Order ed By: Michaela Babcock on 01-12-2024 Mucus Ql (Urine sed) 0 SEEN /hpf [facility] Nitrite Test strip Ql (U)Ord ered By: Michaela Babcock on 01-12-2024 Nitrite Ql (U) Negative Negative [facility] No Panel InformationOrdered By: Michaela Babcock on 01-12-2024 Estimated Creatinine Clearance Calc 39.28 ml/min [facility] Estimated GFR (MDRD) Amer 65 mL/min >60 [facility] Comment on above: GFR Calc Estimated GFR (MDRD) Non-Af Amer 53 mL/min >60 [facility] Comment on above: Non- GFR Calc Urine RBC 0 SEEN /hpf 0-5 [facility] Protein Test strip Ql (U)Ord ered By: Michaela Babcock on 01-12-2024 Protein Ql (U) Negative Negative [facility] RBC Auto (Bld) [#/Vol]Ordere d By: Michaela Babcock on 01-12-2024 RBC (Bld) [#/Vol] 3.89 10*6/uL 4.2-5.4 [facility] Serum or plasma calcium courtney urement (mass/volume)Ordered By: Michaela Babcock on 01-12-2024 Calcium [Mass/Vol] 9.4 mg/dL 8.5-10.1 [facility] Serum or plasma creatinine m easurement (mass/volume)Ordered By: Michaela Babcock on 01-12-2024 Creatinine [Mass/Vol] 1.05 mg/dL 0.55-1.02 [facility] Comment on above: The validity of the calculated GFR & GFRAA in patients over 70 years has not been determined. Clinical correlation is essential. Serum or plasma urea nitroge n measurement (mass/volume)Ordered By: Michaela Babcock on 01-12-2024 Urea nitrogen [Mass/Vol] 22 mg/dL 7-18 [facility] Squamous epithelial cells de tection in urine sediment by light microscopyOrdered By: Michaela Babcock on 01-12-2024 Epithelial cells.squamous LM Ql (Urine sed) 0 SEEN /hpf 5-10 [facility] Thin prep Papanicolaou smear with manual screeningOrdered By: Michaela Babcock on 01-12-2024 Thin prep Papanicolaou smear with manual screening 4 5-15 [facility] Urine blood detectionOrdered By: Michaela Babcock on 01-12-2024 RBC Ql (U) Negative Negative [facility] Urine clarityOrdered By: Isabella Babcock on 01-12-2024 Clarity (U) Clear Clear [facility] Urine color determinationOrd ered By: Michaela Babcock on 01-12-2024 Color (U) Yellow Yellow [facility] Urine glucose detectionOrder ed By: Michaela Babcock on 01-12-2024 Glucose Ql (U) Normal mg/dl Normal [facility] Urine leukocyte esterase det ection by dipstickOrdered By: Michaela Babcock on 01-12-2024 Leukocyte esterase Test strip Ql (U) Negative Negative [facility] Urine pHOrdered By: Michaela barton on 01-12-2024 pH (U) 6.0 [pH] 5.0 - 8.0 [facility] Urine sediment bacteria coun t by microscopy (number/high power field)Ordered By: Michaela Babcock on 01-12-2024 Bacteria LM.HPF (Urine sed) [#/Area] 0 /[HPF] None Seen [facility] Urine specific gravity measu rementOrdered By: Michaela Babcock on 01-12-2024 Specific gravity (U) [Rel density] 1.015 1.002-1.030 [facility] Urine urobilinogen measureme ntOrdered By: Michaela Babcock on 01-12-2024 Urobilinogen Ql (U) Normal mg/dl Normal [facility] US Heart TransthoracicOrdere d By: Marylu Worley on 12-13-2023 Ao Root Index 1.94 cm/m2 [facility] Work Phone: Aortic Root 3.2 cm [facility] Work Phone: Aortic Sinus Valsalva 2.5 cm [facility] Work Phone: Aortic Sinus Valsalva Index 1.52 cm/m2 [facility] Work Phone: Ascending Aorta 3.6 cm [facility] Work Phone: Ascending Aorta Index 2.18 cm/m2 [facility] Work Phone: AV Area by Peak Velocity 3.2 [facility]2 [facility] Work Phone: AV Peak Gradient 5 [facility] Work Phone: AV Peak Velocity 1.1 m/s [facility] Work Phone: AV Velocity Ratio 1.18 [facility] Work Phone: WENDY/BSA Peak Velocity 1.9 cm2/m2 [facility] Work Phone: E/E' Lateral 16.00 [facility] Work Phone: E/E' Ratio (Averaged) 13.33 [facility] Work Phone: E/E' Septal 10.67 [facility] Work Phone: EF BP 70 % 55 - 100 % [facility] Work Phone: Est. RA Pressure 8 mmHg [facility] Work Phone: Fractional Shortening 2D 35 % 28 - 44 % [facility] Work Phone: [phone] Global Longitudinal Strain -16.9 % [facility] Work Phone: [phone] Interpretation and review of laboratory results Abnormal [facility] Work Phone: IVC Diameter 2.4 cm [facility] Work Phone: [phone] IVSd 1.1 cm Abnormal 0.6 - 0.9 cm [facility] Work Phone: LA Diameter 3.4 cm [facility] Work Phone: [phone] LA Size Index 2.06 cm/m2 [facility] Work Phone: [phone] LA Volume 2C 45 mL 22 - 52 mL [facility] Work Phone: LA Volume 4C 52 mL 22 - 52 mL [facility] Work Phone: [phone] LA Volume A/L 56 mL [facility] Work Phone: [phone] LA Volume Index 2C 27 mL/m2 16 - 34 mL/m2 [facility] Work Phone: LA Volume Index 4C 32 mL/m2 16 - 34 mL/m2 [facility] Work [phone] LA Volume Index A/L 34 mL/m2 16 - 34 mL/m2 [facility] Work Phone: LA/AO Root Ratio 1.06 [facility] Work Phone: [phone] LV E' Lateral Velocity 6 cm/s Vu [facility] Work Phone: LV E' Septal Velocity 9 cm/s [facility] Work Phone: LV EDV A2C 74 mL [facility] Work Phone: LV EDV A4C 65 mL [facility] Work Phone: LV EDV BP 72 mL 56 - 104 mL [facility] Work Phone: LV EDV Index A2C 45 mL/m2 [facility] Work Phone: LV EDV Index A4C 39 mL/m2 [facility] Work Phone: LV EDV Index BP [facility] Work Phone: LV Ejection Fraction A2C 75 % [facility] Work Phone: LV Ejection Fraction A4C 63 % [facility] Work Phone: LV ESV A2C 18 mL [facility] Work Phone: LV ESV A4C 24 mL [facility] Work Phone: LV ESV BP 22 mL 19 - 49 mL [facility] Work Phone: LV ESV Index A2C 11 mL/m2 [facility] Work Phone: LV ESV Index A4C 15 mL/m2 [facility] Work Phone: LV ESV Index BP 13 mL/m2 [facility] Work Phone: LV Mass 2D 120.8 g 67 - 162 g [facility] Work Phone: LV Mass 2D Index 73.2 g/m2 43 - 95 g/m2 [facility] Work Phone: LV RWT Ratio 0.54 [facility] Work Phone: LVIDd 3.7 cm Abnormal 3.9 - 5.3 cm [facility] Work Phone: LVIDd Index 2.24 cm/m2 [facility] Work Phone: LVIDs 2.4 cm [facility] Work Phone: LVIDs Index 1.45 cm/m2 [facility] Work Phone: LVOT Area 2.8 cm2 [facility] Work Phone: LVOT Cardiac Output 5.3 liter/minute [facility] Work Phone: LVOT Diameter 1.9 cm [facility] Work Phone: LVOT Mean Gradient 4 mmHg [facility] Work Phone: LVOT Peak Gradient 7 mmHg [facility] Work Phone: LVOT Peak Velocity 1.3 m/s [facility] Work Phone: [phone] LVOT Stroke Volume Index 52.6 mL/m2 [facility] Work Phone: [phone] LVOT SV 86.7 ml [facility] Work Phone: [phone] LVOT VTI 30.6 cm [facility] Work Phone: LVPWd 1.0 cm Abnormal 0.6 - 0.9 cm [facility] Work Phone: MR VTI 194.1 cm [facility] Work Phone: [phone] MV A Vel[facility] 0.97 [facility]: [phone] MV E Velocity 0.96 [facility]s [facility] Work Phone: [phone] MV E Wave Deceleration Time 199.7 ms [facility] Work Phone: [phone] MV E/A 0.99 [facility] Work Phone: [phone] MV Nyquist Velocity 37 cm/s [facility] Work Phone: [phone] MV Regurg Velocity PISA 5.3 m/s S [facility] Work Phone: [phone] RA Area 4C 18.5 cm2 [facility] Work Phone: [phone] RA Volume 54 ml [facility] Work Phone: [phone] RA Volume Index A4C 33 mL/m2 [facility] Work Phone: [phone] RV Basal Dimension 3.7 cm [facility] Work Phone: RV Free Wall Peak S' 11 cm/s [facility] Work Phone: [phone] RV Mid Dimension 2.7 cm [facility] Work Phone: [phone] RVSP 42 mmHg [facility] Work Phone: TAPSE 3.1 cm 1.7 cm [facility] Work Phone: [phone] TR Max Velocity 2.91 m/s [facility] Work Phone: [phone] TR Peak Gradient 34 mmHg [facility] Work Phone: [facility] Work Phone: Heart Transthoracicon Left Ventricle: Left ventricle size is normal. Normal wall thickness. Normal left ventricular systolic function. EF by 2D Simpsons Biplane is 70%. Global longitudinal strain is -16.9%. Normal wall motion. Diastolic dysfunction present with normal LVEF. Average E/e' ratio is 13.33. Right Ventricle: Right ventricle size is normal. Normal systolic function. Mitral Valve: Valve structure is normal. Mild to moderate (1-2+) regurgitation with a centrally directed jet. Tricuspid Valve: Valve structure is normal. Mild to moderate (1-2+) regurgitation. Mildly elevated RVSP. RVSP is 42 mmHg. Left Ventricle Left ventricle size is normal. Normal wall thickness. Normal left ventricular systolic function. EF by 2D Simpsons Biplane is 70%. Global longitudinal strain is -16.9%. Normal wall motion. Diastolic dysfunction present with normal LVEF. Average E/e' ratio is 13.33. Right Ventricle Right ventricle size is normal. Normal systolic function. Left Atrium Left atrium size is normal. Right Atrium Right atrium is mildly dilated. IVC/SVC IVC diameter is dilated and decreases greater than 50% during inspiration; therefore the estimated right atrial pressure is intermediate (~8 mmHg). Mitral Valve Valve structure is normal. Mild to moderate (1-2+) regurgitation with a centrally directed jet. No stenosis noted. Tricuspid Valve Valve structure is normal. Mild to moderate (1-2+) regurgitation. Mildly elevated RVSP. RVSP is 42 mmHg. Aortic Valve Trileaflet. No cusp thickening. No cusp calcification. Cusp sclerosis. No regurgitation. No stenosis. Pulmonic Valve Valve structure is normal. Trace regurgitation. Ascending Aorta Normal sized sinuses of Valsalva and ascending aorta. Pericardium No pericardial effusion. Septum No interatrial shunt visualized on color Doppler. Study Details Image quality: good. Additional technique includes myocardial strain. Heart rate: 60 bpm. Blood pressure: 172/79 mmHg. The underlying ECG rhythm was sinus rhythm. No contrast was given. CV CPACS Absolute lymphocyte countOrd ered By: Darcy Clifton on 11-08-2023 Lymphocytes Auto (Unsp spec) [#/Vol] 2.09 10*3/uL 0.83-4.51 [facility] Basophil percentageOrdered B y: Darcy Clifton on 11-08-2023 Basophils/100 WBC (Bld) 1.4 % 0-1 [facility] Chloride [Moles/Vol] 104 mmol[facility]L 98-[facility] Eosinophils/100 WBC (Bld) 4.8 % 0-5 [facility] Glucose [Mass/Vol] 91 mg/dL 74-106 [facility] Neutrophils (Bld) [#/Vol] 4.8 10*3/uL 2.0-7.7 [facility] Neutrophils/100 WBC (Bld) 58.4 % 47-70 [facility] Potassium [Moles/Vol] 3.7 mmol/L 3.5-5.1 [facility] Sodium [Moles/Vol] 140 mmol/L 136-145 [facility] WBC (Bld) [#/Vol] 8.1 10*3/uL 4.4-11.0 [facility] Blood erythrocytes count (nu mber/volume)Ordered By: Darcy Clifton on 11-08-2023 RBC (Bld) [#/Vol] 4.64 10*6/uL 4.2-5.4 [facility] Blood hemoglobin measurement (mass/volume)Ordered By: Darcy Clifton on 11-08-2023 Hemoglobin (Bld) [Mass/Vol] 13.3 g/dL 12.0-15.0 [facility] Blood lymphocytes/100 leukoc ytesOrdered By: Darcy Clifton on 11-08-2023 Lymphocytes/100 WBC (Bld) 25.7 % 19-41 [facility] Blood monocytes/100 leukocyt esOrdered By: Darcy Clifton on 11-08-2023 Monocytes/100 WBC (Bld) 9.2 % 0-10 [facility] Blood platelet mean volumeOr dered By: Darcy Clifton on 11-08-2023 Platelet mean volume (Bld) [Entitic vol] 9.5 fL 6.2-12.0 [facility] Determination of erythrocyte mean corpuscular volume (MCV)Ordered By: Darcy Clifton on 11-08-2023 MCV (RBC) [Entitic vol] 91.4 fL 81-99 [facility] Hematocrit Auto (Bld) [Volum e fraction]Ordered By: Darcy Clifton on 11-08-2023 Hematocrit (Bld) [Volume fraction] 42.4 % 37-47 [facility] Laboratory - Chemistry and C hemistry - challengeOrdered By: Darcy Clifton on 11-08-2023 CO2 [Moles/Vol] 29.0 mmol/L 21.0-32.0 [facility] Urea nitrogen/Creatinine [Mass ratio] 22.3 mg/mg 10-20 [facility] Laboratory - Hematology and Cell countsOrdered By: Darcy Clifton on 11-08-2023 Erythrocyte distribution width (RBC) [Entitic vol] 48.9 fL 35.1-43.9 [facility] Erythrocyte distribution width (RBC) [Ratio] 14.6 % 11.6-14.6 [facility] Immature granulocytes/100 WBC (Bld) 0.500 % 0.0-0.9 [facility] Comment on above: IG% - Immature Granu locytes (promyelocytes, myelocytes and metamyelocytes) > 1% indicates that a LEFT SHIFT is Present. MCH (RBC) [Entitic mass] 28.7 pg 27.0-32.0 [facility] Nucleated RBC/100 WBC (Bld) [Ratio] 0 % 0-5 [facility] MCHC Auto (RBC) [Mass/Vol]Or dered By: Darcy Clifton on 11-08-2023 MCHC (RBC) [Mass/Vol] 31.4 g/dL 32-36 [facility] No Panel InformationOrdered By: Darcy Clifton on 11-08-2023 Estimated GFR (MDRD) Amer 101 mL/min >60 [facility] Comment on above: GFR Calc Estimated GFR (MDRD) Non-Af Amer 83 mL/min >60 [facility] Comment on above: Non- GFR Calc Platelets bldOrdered By: Hussein Clifton on 11-08-2023 Platelets (Bld) [#/Vol] 291 10*3/uL 150-450 [facility] Serum or plasma calcium courtney urement (mass/volume)Ordered By: Darcy Clifton on 11-08-2023 Calcium [Mass/Vol] 9.4 mg/dL 8.5-10.1 [facility] Serum or plasma creatinine m easurement (mass/volume)Ordered By: Darcy Clifton on 11-08-2023 Creatinine [Mass/Vol] 0.72 mg/dL 0.55-1.02 [facility] Comment on above: The validity of the calculated GFR & GFRAA in patients over 70 years has not been determined. Clinical correlation is essential. Serum or plasma urea nitroge n measurement (mass/volume)Ordered By: Darcy Clifton on 11-08-2023 Urea nitrogen [Mass/Vol] 16 mg/dL 7-18 [facility] Thin prep Papanicolaou smear with manual screeningOrdered By: Darcy Clifton on 11-08-2023 Thin prep Papanicolaou smear with manual screening 7 5-15 [facility] Basophil percentageOrdered B y: Darcy Clifton on 10-25-2023 Chloride [Moles/Vol] 107 mmol/L 98-107 [facility] Glucose [Mass/Vol] 88 mg/dL 74-106 [facility] Potassium [Moles/Vol] 3.7 mmol/L 3.5-5.1 [facility] Sodium [Moles/Vol] 142 mmol/L 136-145 [facility] Laboratory - Chemistry and C hemistry - challengeOrdered By: Darcy Clifton on 10-25-2023 CO2 [Moles/Vol] 30.0 mmol/L 21.0-32.0 [facility] Magnesium [Mass/Vol] 2.1 mg/dL 1.6-2.6 [facility] Urea nitrogen/Creatinine [Mass ratio] 23.9 mg/mg 10-20 [facility] No Panel InformationOrdered By: Darcy Clifton on 10-25-2023 Estimated GFR (MDRD) Amer 117 mL/min >60 [facility] Comment on above: GFR Calc Estimated GFR (MDRD) Non-Af Amer 97 mL/min >60 [facility] Comment on above: Non- GFR Calc Serum or plasma calcium courtney urement (mass/volume)Ordered By: Darcy Clifton on 10-25-2023 Calcium [Mass/Vol] 8.5 mg/dL 8.5-10.1 [facility] Serum or plasma creatinine m easurement (mass/volume)Ordered By: Darcy Clifton on 10-25-2023 Creatinine [Mass/Vol] 0.63 mg/dL 0.55-1.02 [facility] Comment on above: The validity of the calculated GFR & GFRAA in patients over 70 years has not been determined. Clinical correlation is essential. Serum or plasma urea nitroge n measurement (mass/volume)Ordered By: Darcy Clifton on 10-25-2023 Urea nitrogen [Mass/Vol] 15 mg/dL 7-18 [facility] Thin prep Papanicolaou smear with manual screeningOrdered By: Darcypriscilla Clifton on 10-25-2023 Thin prep Papanicolaou smear with manual screening 5 5-15 [facility] Absolute lymphocyte countOrd ered By: Darcy Clifton on 10-08-2023 Lymphocytes Auto (Unsp spec) [#/Vol] 1.87 10*3/uL 0.83-4.51 [facility] Basophil percentageOrdered B y: Darcy Clifton on 10-08-2023 Basophils/100 WBC (Bld) 1.4 % 0-1 [facility] Bilirubin [Mass/Vol] 0.20 mg/dL 0.20-1.00 [facility] Comment on above: For patients on eltr ombopag therapy, use of Dimension [place] TBIL is not recommended. Chloride [Moles/Vol] 104 mmol/L 98-107 [facility] Cholesterol [Mass/Vol] 118 mg/dL <200 [facility] Comment on above: <200 mg/dL Desirable 200-240 mg/dL Borderline >240 mg/dL High Risk Eosinophils/100 WBC (Bld) 5.0 % 0-5 [facility] Glucose [Mass/Vol] 89 mg/dL 74-106 [facility] Neutrophils (Bld) [#/Vol] 3.8 10*3/uL 2.0-7.7 [facility] Neutrophils/100 WBC (Bld) 55.2 % 47-70 [facility] Potassium [Moles/Vol] 3.4 mmol/L 3.5-5.1 [facility] Protein [Mass/Vol] 5.9 g/dL 6.4-8.2 [facility] Sodium [Moles/Vol] 141 mmol/L 136-145 [facility] Triglyceride [Mass/Vol] 58 mg/dL <199 [facility] Comment on above: The drugs N-Acetylcy steine and Metamizole may falsely depress this assay.Serum Triglycerides Reference Interval Normal <150 mg/dL Borderline high 150 - 199 mg/dL High 200 - 499 mg/dL Very High > or = 500 mg/dL WBC (Bld) [#/Vol] 7.0 10*3/uL 4.4-11.0 [facility] Blood erythrocytes count (nu mber/volume)Ordered By: Darcy Clifton on 10-08-2023 RBC (Bld) [#/Vol] 4.18 10*6/uL 4.2-5.4 [facility] Blood hemoglobin measurement (mass/volume)Ordered By: Darcy Clifton on 10-08-2023 Hemoglobin (Bld) [Mass/Vol] 11.7 g/dL 12.0-15.0 [facility] Blood lymphocytes/100 leukoc ytesOrdered By: Darcy Clifton on 10-08-2023 Lymphocytes/100 WBC (Bld) 26.9 % 19-41 [facility] Blood monocytes/100 leukocyt esOrdered By: Darcy Clifton on 10-08-2023 Monocytes/100 WBC (Bld) 10.9 % 0-10 [facility] Blood platelet mean volumeOr dered By: Darcy Clifton on 10-08-2023 Platelet mean volume (Bld) [Entitic vol] 9.6 fL 6.2-12.0 [facility] Determination of erythrocyte mean corpuscular volume (MCV)Ordered By: Darcy Clifton on 10-08-2023 MCV (RBC) [Entitic vol] 91.1 fL 81-99 [facility] Hematocrit Auto (Bld) [Volum e fraction]Ordered By: Darcy Clifton on 10-08-2023 Hematocrit (Bld) [Volume fraction] 38.1 % 37-47 [facility] Laboratory - Chemistry and C hemistry - challengeOrdered By: Darcy Clifton on 10-08-2023 ALP [Catalytic activity/Vol] 93 U/L 45-117 [facility] ALT [Catalytic activity/Vol] 19 U/L 13-56 [facility] CO2 [Moles/Vol] 29.0 mmol/L 21.0-32.0 [facility] Globulin (S) [Mass/Vol] 3.0 g/dL 2.2-4.2 [facility] Magnesium [Mass/Vol] 2.0 mg/dL 1.6-2.6 [facility] Urea nitrogen/Creatinine [Mass ratio] 23.5 mg/mg 10-20 [facility] Laboratory - Hematology and Cell countsOrdered By: Darcy Clifton on 10-08-2023 Erythrocyte distribution width (RBC) [Entitic vol] 48.3 fL 35.1-43.9 [facility] Erythrocyte distribution width (RBC) [Ratio] 14.4 % 11.6-14.6 [facility] Immature granulocytes/100 WBC (Bld) 0.600 % 0.0-0.9 [facility] Comment on above: IG% - Immature Granu locytes (promyelocytes, myelocytes and metamyelocytes) > 1% indicates that a LEFT SHIFT is Present. MCH (RBC) [Entitic mass] 28.0 pg 27.0-32.0 [facility] Nucleated RBC/100 WBC (Bld) [Ratio] 0 % 0-5 [facility] MCHC Auto (RBC) [Mass/Vol]Or dered By: Darcy Clifton on 10-08-2023 MCHC (RBC) [Mass/Vol] 30.7 g/dL 32-36 [facility] No Panel InformationOrdered By: Darcy Clifton on 10-08-2023 Estimated GFR (MDRD) Amer 115 mL/min >60 [facility] Comment on above: GFR Calc Estimated GFR (MDRD) Non-Af Amer 95 mL/min >60 [facility] Comment on above: Non- GFR Calc Thyroid Stimulating Hormone (TSH) 0.85 uIU/mL 0.358-3.74 [facility] Vitamin D 25-Hydroxy 39.2 ng/mL [facility] Comment on above: Vitamin D 25(OH) Sta tus Range Deficiency <20 ng/mL (50nmol/L) Insufficiency 20 - 30 ng/mL (50 - 75 nmol/L) Sufficiency 30 - 100 ng/mL (75 - 250 nmol/L) Toxicity >100 ng/mL (>250 nmol/L) Platelets bldOrdered By: Hussein Clifton on 10-08-2023 Platelets (Bld) [#/Vol] 245 10*3/uL 150-450 [facility] Serum or plasma albumin courtney urement (mass/volume)Ordered By: Darcy Clifton on 10-08-2023 Albumin [Mass/Vol] 2.9 g/dL 3.2-5.0 [facility] Serum or plasma albumin/glob ulin mass ratioOrdered By: Darcypriscilla Clifton on 10-08-2023 Albumin/Globulin [Mass ratio] 1.0 {ratio} 0.9-2.4 [facility] Serum or plasma calcium courtney urement (mass/volume)Ordered By: Darcy Clifton on 10-08-2023 Calcium [Mass/Vol] 8.7 mg/dL 8.5-10.1 [facility] Serum or plasma cholesterol in HDL measurement (mass/volume)Ordered By: Darcy Clifton on 10-08-2023 Cholesterol in HDL [Mass/Vol] 67 mg/dL >40 [facility] Comment on above: The drugs N-Acetylcy steine and Metamizole may falsely depress this assay. Reference Range HDL <40 mg/dL Low HDL Cholesterol HDL >or= 60 mg/dL High HDL Cholesterol Serum or plasma cholesterol in VLDL measurement (mass/volume)Ordered By: Darcy Clifton on 10-08-2023 Cholesterol in VLDL [Mass/Vol] 12 mg/dL 5-40 [facility] Serum or plasma creatinine m easurement (mass/volume)Ordered By: Darcy Clifton on 10-08-2023 Creatinine [Mass/Vol] 0.64 mg/dL 0.55-1.02 [facility] Comment on above: The validity of the calculated GFR & GFRAA in patients over 70 years has not been determined. Clinical correlation is essential. Serum or plasma low density lipoprotein (LDL) cholesterol measurement (mass/volume)Ordered By: Darcy Clifton on 10-08-2023 Cholesterol in LDL [Mass/Vol] 39 mg/dL 0-130 [facility] Serum or plasma urea nitroge n measurement (mass/volume)Ordered By: Darcy Clifton on 10-08-2023 Urea nitrogen [Mass/Vol] 15 mg/dL 7-18 [facility] Thin prep Papanicolaou smear with manual screeningOrdered By: Darcy Clifton on 10-08-2023 Thin prep Papanicolaou smear with manual screening 15 U/L 15-37 [facility] Thin prep Papanicolaou smear with manual screening 8 5-15 [facility] Laboratory - Chemistry and C hemistry - challengeOrdered By: Dr. Clifton on 03-19-2023 Natriuretic peptide B (Bld) [Mass/Vol] 192.7 pg/mL 0-100 [facility] Absolute lymphocyte countOrd ered By: Dr. Clifton on 03-14-2023 Lymphocytes Auto (Unsp spec) [#/Vol] 1.56 10*3/uL 0.83-4.51 [facility] Basophil percentageOrdered B y: Dr. Clifton on 03-14-2023 Basophils/100 WBC (Bld) 0.6 % 0-1 [facility] Chloride [Moles/Vol] 107 mmol/L 98-107 [facility] Cholesterol [Mass/Vol] 120 mg/dL <200 [facility] Comment on above: <200 mg/dL Desirable 200-240 mg/dL Borderline >240 mg/dL High Risk Eosinophils/100 WBC (Bld) 3.6 % 0-5 [facility] Glucose [Mass/Vol] 87 mg/dL 74-106 [facility] Neutrophils (Bld) [#/Vol] 5.2 10*3/uL 2.0-7.7 [facility] Neutrophils/100 WBC (Bld) 66.2 % 47-70 [facility] Potassium [Moles/Vol] 3.5 mmol/L 3.5-5.1 [facility] Sodium [Moles/Vol] 139 mmol/L 136-145 [facility] Triglyceride [Mass/Vol] 96 mg/dL <199 [facility] Comment on above: The drugs N-Acetylcy steine and Metamizole may falsely depress this assay.Serum Triglycerides Reference Interval Normal <150 mg/dL Borderline high 150 - 199 mg/dL High 200 - 499 mg/dL Very High > or = 500 mg/dL WBC (Bld) [#/Vol] 7.9 10*3/uL 4.4-11.0 [facility] Blood erythrocytes count (nu mber/volume)Ordered By: Dr. Clifton on 03-14-2023 RBC (Bld) [#/Vol] 4.26 10*6/uL 4.2-5.4 [facility] Blood hemoglobin measurement (mass/volume)Ordered By: Dr. Clifton on 03-14-2023 Hemoglobin (Bld) [Mass/Vol] 12.5 g/dL 12.0-15.0 [facility] Blood lymphocytes/100 leukoc ytesOrdered By: Dr. Clifton on 03-14-2023 Lymphocytes/100 WBC (Bld) 19.9 % 19-41 [facility] Blood monocytes/100 leukocyt esOrdered By: Dr. Clifton on 03-14-2023 Monocytes/100 WBC (Bld) 9.3 % 0-10 [facility] Blood platelet mean volumeOr dered By: Dr. Clifton on 03-14-2023 Platelet mean volume (Bld) [Entitic vol] 9.8 fL 6.2-12.0 [facility] Determination of erythrocyte mean corpuscular volume (MCV)Ordered By: Dr. Clifton on 03-14-2023 MCV (RBC) [Entitic vol] 93.7 fL 81-99 [facility] Hematocrit Auto (Bld) [Volum e fraction]Ordered By: Dr. Clifton on 03-14-2023 Hematocrit (Bld) [Volume fraction] 39.9 % 37-47 [facility] Laboratory - Chemistry and C hemistry - challengeOrdered By: Dr. Clifton on 03-14-2023 CO2 [Moles/Vol] 30.0 mmol/L 21.0-32.0 [facility] Cobalamin (Vitamin B12) [Mass/Vol] 224 pg/mL 211-911 [facility] Urea nitrogen/Creatinine [Mass ratio] 23.9 mg/mg 10-20 [facility] Laboratory - Hematology and Cell countsOrdered By: Dr. Clifton on 03-14-2023 Erythrocyte distribution width (RBC) [Entitic vol] 47.0 fL 35.1-43.9 [facility] Erythrocyte distribution width (RBC) [Ratio] 13.7 % 11.6-14.6 [facility] Immature granulocytes/100 WBC (Bld) 0.400 % 0.0-0.9 [facility] Comment on above: IG% - Immature Granu locytes (promyelocytes, myelocytes and metamyelocytes) > 1% indicates that a LEFT SHIFT is Present. MCH (RBC) [Entitic mass] 29.3 pg 27.0-32.0 [facility] Nucleated RBC/100 WBC (Bld) [Ratio] 0 % 0-5 [facility] MCHC Auto (RBC) [Mass/Vol]Or dered By: Dr. Clifton on 03-14-2023 MCHC (RBC) [Mass/Vol] 31.3 g/dL 32-36 [facility] No Panel InformationOrdered By: Dr. Clifton on 03-14-2023 Estimated GFR (MDRD) Amer 109 mL/min >60 [facility] [facility] Comment on above: GFR Calc Estimated GFR (MDRD) Non-Af Amer 90 mL/min >60 [facility] Comment on above: Non- GFR Calc Thyroid Stimulating Hormone (TSH) 1.29 uIU/mL 0.358-3.74 [facility] Vitamin D 25-Hydroxy 42.9 ng/mL [facility] Comment on above: Vitamin D 25(OH) Sta tus Range Deficiency <20 ng/mL (50nmol/L) Insufficiency 20 - 30 ng/mL (50 - 75 nmol/L) Sufficiency 30 - 100 ng/mL (75 - 250 nmol/L) Toxicity >100 ng/mL (>250 nmol/L) Platelets bldOrdered By: Dr. Clifton on 03-14-2023 Platelets (Bld) [#/Vol] 237 10*3/uL 150-450 [facility] Serum or plasma calcium courtney urement (mass/volume)Ordered By: Dr. Clifton on 03-14-2023 Calcium [Mass/Vol] 9.2 mg/dL 8.5-10.1 [facility] Serum or plasma cholesterol in HDL measurement (mass/volume)Ordered By: Dr. Clifton on 03-14-2023 Cholesterol in HDL [Mass/Vol] 63 mg/dL >40 [facility] Comment on above: The drugs N-Acetylcy steine and Metamizole may falsely depress this assay. Reference Range HDL <40 mg/dL Low HDL Cholesterol HDL >or= 60 mg/dL High HDL Cholesterol Serum or plasma cholesterol in VLDL measurement (mass/volume)Ordered By: Dr. Clifton on 03-14-2023 Cholesterol in VLDL [Mass/Vol] 19 mg/dL 5-40 [facility] Serum or plasma creatinine m easurement (mass/volume)Ordered By: Dr. Clifton on 03-14-2023 Creatinine [Mass/Vol] 0.67 mg/dL 0.55-1.02 [facility] Comment on above: The validity of the calculated GFR & GFRAA in patients over 70 years has not been determined. Clinical correlation is essential. Serum or plasma low density lipoprotein (LDL) cholesterol measurement (mass/volume)Ordered By: Dr. Clifton on 03-14-2023 Cholesterol in LDL [Mass/Vol] 38 mg/dL 0-130 [facility] Serum or plasma urea nitroge n measurement (mass/volume)Ordered By: Dr. Clifton on 03-14-2023 Urea nitrogen [Mass/Vol] 16 mg/dL 7-18 [facility] Thin prep Papanicolaou smear with manual screeningOrdered By: Dr. Clifton on 03-14-2023 Thin prep Papanicolaou smear with manual screening 2 5-15 [facility] XR Foot - left 3 Viewson Mildly displaced fracture of the proximal phalanx of the second digit. Report Dictated on Electronically Signed By: Lui Petty Electronically Signed Date/Time: 03/06/2023 12:36 PM [facility]Y [facility] Patient Name: ERLINDA PATHAK : 1940 Exam Date/Time: 03/06/2023 11:46 Procedure: XR FOOT 3+ VIEWS LEFT Ordering Provider: SANDHU VISHNU Reason For Exam: PAIN LEFT FOOT: CLINICAL INDICATION: Pain. TECHNIQUE: Three views of the left foot were obtained. COMPARISON: None. FINDINGS: Mildly displaced fracture of the proximal phalanx of the second digit. Postsurgical changes are seen from bunionectomy with K wire placement. No radiopaque foreign body. [facility] RADIOLOGY SYSTEM Lui Petty MD - 03/06/2023 [facility] Name[facility] 1940 [id number] Exam Date/Time: 03/06/2023 11:46 Procedure: XR FOOT 3+ VIEWS LEFT Ordering Provider: SANDHU VISHNU Reason For Exam: PAIN LEFT FOOT: CLINICAL INDICATION: Pain. TECHNIQUE: Three views of the left foot were obtained. COMPARISON: None. FINDINGS: Mildly displaced fracture of the proximal phalanx of the second digit. Postsurgical changes are seen from bunionectomy with K wire placement. No radiopaque foreign body. IMPRESSION: Mildly displaced fracture of the proximal phalanx of the second digit. Report Dictated on Electronically Signed By: Lui Petty Electronically Signed Date/Time: 03/06/2023 12:36 PM EDT [facility] Radiology Study observation (narrative) [facility] XR Foot - left 3 ViewsOrdere d By: Lui Petty on 03-06-2023 [facility] [employer] Work Phone: No Panel InformationOrdered By: Amira Vazquez on 01-16-2023 Baseline Diastolic BP 99 mmHg Sum ne [employer] Work Phone: Baseline HR 75 bpm [facility] [employer] Work Phone: Baseline ST Depression 0 mm Vu [facility] [employer] Work Phone: Baseline Systolic BP 171 mmHg [facility] [employer] Work Phone: Exercise Duration Seconds 0 sec [facility] [employer] Work Phone: Exercise Duration Time 4 min Vu [facility] [employer] Work Phone: Nuc Stress Diastolic Volume 46 mL [facility] Work Phone: Nuc Stress EF 87 % [facility] Work Phone: Nuc Stress Systolic Volume 6 mL [facility] Work Phone: Recovery Stage 1 BP 166/98 mmHg [facility] Work Phone: Recovery Stage 1 Duration 1 min:sec [facility] Work Phone: Recovery Stage 1 HR 115 bpm [facility] Work Phone: Recovery Stage 2 BP 177/103 mmHg [facility] Work Phone: Recovery Stage 2 Duration 3 min:sec [facility] Work Phone: Recovery Stage 2 HR 113 bpm [facility] Work Phone: Recovery Stage 3 BP 171/96 mmHg [facility] [employer] Work Phone: Recovery Stage 3 Duration 5 min:sec [facility] Work Phone: Recovery Stage 3 HR 105 bpm [facility] [employer] Work Phone: Recovery Stage 4 BP 174/97 mmHg [facility] Work Phone: Recovery Stage 4 Duration 10 min:sec [facility] Work Phone: Recovery Stage 4 HR 98 bpm [facility] [employer] Work Phone: Stress Diastolic BP 94 mmHg [facility] [employer] Work Phone: Stress Estimated Workload 1.0 METS [facility] Work Phone: Stress Peak HR 117 bpm [facility] Work Phone: Stress Percent HR Achieved 84 % [facility] [employer] Work Phone: Stress Rate Pressure Product 30548 bpm*mmHg [facility] Work Phone: Stress ST Depression 0 mm [facility] Work Phone: Stress Stage 1 BP 173/94 mmHg [facility] Work Phone: Stress Stage 1 HR 72 bpm [facility] [employer] [facility] Work Phone: Stress Stage 2 BP 148/94 mmHg [facility] Work Phone: [phone] Stress Stage 2 HR 100 bpm [facility]alt Work Phone: [phone] Stress Stage 3 BP 171/94 mmHg [facility] ealth Work Phone: [phone] Stress Stage 3 HR 112 bpm [facility] ealth Work Phone: [phone] Stress Systolic BP 171 mmHg [facility] Work Phone: [phone] Stress Target HR 140 bpm [facility] Work Phone: [phone] TID 0.87 [facility] Work Phone: [phone] No Panel Informationon 01-16 Stress Combined Conclusion: Normal pharmacological myocardial perfusion study. Findings suggest a low risk of cardiac events. Stress Function: Post-stress ejection fraction is 87%. Stress end diastolic volume: 46 mL. Stress end systolic volume: 6 mL. Stress ECG: Conclusion: The stress EKG is normal. Resting ECG The ECG shows normal sinus rhythm. Resting ECG shows no ST-segment deviation. Stress Findings A pharmacological stress test was performed using regadenoson. Hemodynamics are adequate for diagnosis. Blood pressure demonstrated a normal response and heart rate demonstrated a normal response to stress. The patient's heart rate recovery was normal. The patient reported no symptoms prior to the stress test. The patient reported dizziness, dyspnea, nausea and no chest pain during the stress test. Symptoms began during stress and ended during recovery. The patient reached the end of the protocol. Stress ECG Arrhythmias during stress: PVCs. No ST depression was noted. Arrhythmias during recovery: PVCs. There were no ST changes during recovery. Conclusion: The stress EKG is normal. Nuclear Study Quality Nuclear imaging technique: single photon emission computed tomography (SPECT). Regadenoson was used as the stressing method and agent. Stress testing was performed with intravenous regadenoson by bolus at one minute into the protocol for a total dose of 0.4 mg over 10 seconds followed by a 5 mL saline flush. One day myocardial perfusion study (01/16/2023). Nuclear imaging was performed in the supine position. There is mild sub-diaphragmatic tracer activity artifact noted. Perfusion Comments LV perfusion is normal at rest. LV perfusion is normal with stress. There is no evidence of inducible ischemia. Perfusion Defect Conclusion There is no evidence of transient ischemic dilation (TID). TID ratio is 0.87. Stress Function Comments Post-stress ejection fraction is 87%. Stress end diastolic volume: 46 mL. Stress end systolic volume: 6 mL. Stress Combined Conclusion Normal pharmacological myocardial perfusion study. Findings suggest a low risk of cardiac events. CV EPIPHANY Vital signsOrdered By: Amira Vazquez on 01-16-2023 Oxygen saturation in Blood 96 % [employer] Phone: Oxygen saturation in Blood 98 % [employer] Phone: LABORATORYOrdered By: Dav Kendall on 12-04-2022 Appearance (U) Clear (12/04/22 10:20 AM) Invalid Interpretation Code Clear AO Auto Urine SS Bilirubin Ql (U) Negative (12/04/22 10:20 AM) Invalid Interpretation Code Negative AO Auto Urine SS Color (U) Yellow (12/04/22 10:20 AM) Invalid Interpretation Code AO Auto Urine SS Glucose Test strip (U) [Mass/Vol] Negative Invalid Interpretation Code Negativemg/d L AO Auto Urine SS Hemoglobin Auto test strip (U) [Mass/Vol] Negative (12/04/22 10:20 AM) Invalid Interpretation Code Negative AO Auto Urine SS Ketones Ql (U) Negative Invalid Interpretation Code Negativemg/d L AO Auto Urine SS UA Leuk Est Negative (12/04/22 10:20 AM) Invalid Interpretation Code Negative AO Auto Urine SS UA Nitrite Negative (12/04/22 10:20 AM) Invalid Interpretation Code Negative AO Auto Urine SS UA pH 5.5 (12/04/22 10:20 AM) Invalid Interpretation Code 5.0 - 8.0 AO Auto Urine SS UA Protein Negative Invalid Interpretation Code Negativemg/d L AO Auto Urine SS UA Spec Grav 1.025 (12/04/22 10:20 AM) Invalid Interpretation Code 1.015-1.025 AO Auto Urine SS UA Specimen Type Void (12/04/22 10:20 AM) Invalid Interpretation Code AO Auto Urine SS UA Urobilinogen 0.2 E.U./dL Invalid Interpretation Code 0.2-1.0E.U./ dL AO Auto Urine SS No Panel Informationon 12-04 Culture Urine 10,000 - 50,000 cfu/ml Multiple bacterial morphotypes present. Probable Contamination. Suggest recollection if clinically indicated. [facility] Work Phone: UAon 12-04-2022 Color (U) Yellow Normal [facility] ([place] Comment on above: Performed By: #### U A #### [address] [address] Glucose (U) [Mass/Vol] Negative Normal Negative [facility] ([place] Comment on above: Performed By: #### U A #### [address] [address] Ketones Ql (U) Negative Normal Negative [facility] ([place] Comment on above: Performed By: #### U A #### [address] [address] UA Appear Clear Normal Clear [facility] ([place] Comment on above: Performed By: #### U A #### [address] [address] UA Blood Negative Normal Negative [facility] ([place] Comment on above: Performed By: #### U A #### [address] [address] UA Leuk Est Negative Normal Negative [facility] ([place] Comment on above: Performed By: #### U A #### [address] [address] UA Nitrite Negative Normal Negative [facility] ([place] Comment on above: Performed By: #### U A #### [address] [address] UA pH 5.5 Normal 5.0 - 8.0 [facility] ([place] Comment on above: Performed By: #### U A #### [address] [address] UA Protein Negative Normal Negative [facility] ([place] Comment on above: Performed By: #### U A #### [address] [address] UA Spec Grav 1.025 Normal 1.015-1.025 [facility] ([place] Comment on above: Performed By: #### U A #### [address] [place], [place] [address] UA Specimen Type Void Normal [facility] [place] Comment on above: Performed By: #### U A #### [address] [place], [place] [address] UA Urobilinogen 0.2 E.U./dL Normal 0.2-1.0 [facility] ([place] Comment on above: Performed By: #### U A #### [address] [place], [place] [address] Urobilinogen (U) [Mass/Vol] Negative Normal Negative [facility] [place] Comment on above: Performed By: #### U A #### [address] [address] .Auto Diffon 11-24-2022 Basophil, Absolute 0.1 10 3/mcL Normal 0.0-0.2 [facility] ([place] Comment on above: Performed By: #### A VIVIANA, CBC, ADIFF ####[address] [address] Basophils/100 WBC (Bld) 1.0 % Normal 0.0-2.5 A [facility] ([place]) Comment on above: Performed By: #### A VIVIANA, CBC, ADIFF ####[facility] [place], [place] [address] Eosinophil, Absolute 0.1 10 3/mcL Normal 0.0-0.4 [facility] ([place] Comment on above: Performed By: #### A VIVIANA, CBC, ADIFF ####[address] [address] Eosinophils/100 WBC (Bld) 0.8 % Normal 0.0-7.0 [facility] ([place] Comment on above: Performed By: #### A VIVIANA, CBC, ADIFF ####[facility] [place], [place] [address] Lymphocyte, Absolute 2.0 10 3/mcL Normal 0.8-3.9 [facility] ([place] Comment on above: Performed By: #### A VIVIANA, CBC, ADIFF ####[address] [place], [place] [address] Lymphocytes/100 WBC (Bld) 16.6 % Normal 10.0-50.0 [facility] ([place] Comment on above: Performed By: #### A VIVIANA, CBC, ADIFF ####[address] [place], [place] [address] Monocyte, Absolute 1.6 10 3/mcL High 0.2-1.0 [facility] ([place] Comment on above: Performed By: #### A VIVIANA, CBC, ADIFF ####[address] [place], [place] [address] Monocytes/100 WBC (Bld) 13.5 % High 1.7-13.0 [facility] ([place]) Comment on above: Performed By: #### A VIVIANA, CBC, ADIFF ####[address] [place], [place] [address] Neutrophils/100 WBC (Bld) 68.1 % Normal 37.0-80.0 [facility] ([place] Comment on above: Performed By: #### A VIVIANA, CBC, ADIFF ####[address] [place], [place] [address] .GFRon 11-24-2022 GFR 74 ml/min/1.73sqm Normal [facility] ([place] Comment on above: Result Comment: GFR Population mean for , Non- Americans Ages 20-29 = 116 mL/min/1.73 sq.m. Ages 30-39 = 107 mL/min/1.73 sq.m. Ages 40-49 = 99 mL/min/1.73 sq.m. Ages 50-59 = 93 mL/min/1.73 sq.m. Ages 60-69 = 85 mL/min/1.73 sq.m. Ages 70+ = 75 mL/min/1.73 sq.m. Chronic Kidney Disease: Less than 60 mL/min/1.73 square meters End Stage Renal Disease: Less than 15 mL/min/1.73 square meters Performed By: #### G FR, VIDH, TSH, CMP, LIPID #### [address] [place] [address] [place], [place] [address] GFR Non- 61 ml/min/1.73sqm Normal [facility] ([place] Comment on above: Result Comment: GFR Population mean for , Non- Americans Ages 20-29 = 116 mL/min/1.73 sq.m. Ages 30-39 = 107 mL/min/1.73 sq.m. Ages 40-49 = 99 mL/min/1.73 sq.m. Ages 50-59 = 93 mL/min/1.73 sq.m. Ages 60-69 = 85 mL/min/1.73 sq.m. Ages 70+ = 75 mL/min/1.73 sq.m. Chronic Kidney Disease: Less than 60 mL/min/1.73 square meters End Stage Renal Disease: Less than 15 mL/min/1.73 square meters Performed By: #### G FR, VIDH, TSH, CMP, LIPID #### [address] [address] .NEUABSon 11-24-2022 Neutrophil, Absolute 8.1 10 3/mcL High 2.9-6.2 [facility] ([place] Comment on above: Performed By: #### A VIVIANA, CBC, ADIFF ####[address] [address] CBCon 11-24-2022 Erythrocyte distribution width (RBC) [Ratio] 14.1 % Normal 11.5-14.5 [facility] ([place] Comment on above: Performed By: #### A VIVIANA, CBC, ADIFF #### [address] [address] Hematocrit (Bld) [Volume fraction] 40.0 % Normal 37.0-47.0 [facility] ([place] Comment on above: Performed By: #### A VIVIANA, CBC, ADIFF #### [address] [address] Hgb 13.1 G/dL Normal 12.0-16.0 [facility] [place] Comment on above: Performed By: #### A VIVIANA, CBC, ADIFF #### [address] [address] MCH (RBC) [Entitic mass] 29.7 pg Normal 27.0-31.2 [facility] [place] Comment on above: Performed By: #### A VIVIANA, CBC, ADIFF #### [address] [address] MCHC 32.7 G/dL Low 33.0-37.0 [facility] ([place] Comment on above: Performed By: #### A VIVIANA, CBC, ADIFF #### [address] [address] MCV (RBC) [Entitic vol] 90.8 fL Normal 80.0-94.0 A [facility] ([place]) Comment on above: Performed By: #### A VIVIANA, CBC, ADIFF #### [address] [address] Platelet 281 10 3/mcL Normal 130-400 [facility] ([place] Comment on above: Performed By: #### A VIVIANA, CBC, ADIFF #### [address] [address] Platelet mean volume (Bld) [Entitic vol] 7.1 fL Low 7.4-10.4 [facility] ([place] Comment on above: Performed By: #### A VIVIANA, CBC, ADIFF #### [address] [address] RBC 4.40 10 6/mcL Normal 4.20-5.40 [facility] ([place] Comment on above: Performed By: #### A VIVIANA, CBC, ADIFF #### [address] [address] WBC 11.9 10 3/mcL High 4.6-10.8 [facility] ([place] Comment on above: Performed By: #### A VIVIANA, CBC, ADIFF #### [address] [address] CMPon 11-24-2022 Albumin Level 3.6 G/dL Normal 3.4-4.8 [facility] ([place] Comment on above: Performed By: #### G FR, VIDH, TSH, CMP, LIPID #### [address] [address] Albumin/Globulin [Mass ratio] 1.2 {ratio} Normal 1.1-2.5 [facility] ([place] Comment on above: Performed By: #### G FR, VIDH, TSH, CMP, LIPID #### [address] [address] ALP [Catalytic activity/Vol] 90 U/L Normal 40-135 [facility] ([place] Comment on above: Performed By: #### G FR, VIDH, TSH, CMP, LIPID #### [address] [address] ALT [Catalytic activity/Vol] 29 U/L Normal 14-59 [facility] ([place] Comment on above: Performed By: #### G FR, VIDH, TSH, CMP, LIPID #### [address] [address] AST [Catalytic activity/Vol] 22 U/L Normal 10-40 [facility] ([place] Comment on above: Performed By: #### G FR, VIDH, TSH, CMP, LIPID #### [address] [address] Bili Total 0.6 mg/dL Normal 0.2-1.0 [facility] ([place] Comment on above: Result Comment: Use of this assay is not recommended for patients undergoing treatment with eltrombopag due to the potential for falsely elevated results. Performed By: #### G FR, VIDH, TSH, CMP, LIPID #### [address] [address] BUN/Creatinine Ratio 29 ratio High 7-27 [facility] ([place] Comment on above: Performed By: #### G FR, VIDH, TSH, CMP, LIPID #### [address] [address] Calcium [Mass/Vol] 9.6 mg/dL Normal 8.4-10.2 [facility] ([place]) Comment on above: Performed By: #### G FR, VIDH, TSH, CMP, LIPID #### [address] [address] Chloride [Moles/Vol] 99 mmol/L Normal 98-107 [facility] ([place] Comment on above: Performed By: #### G FR, VIDH, TSH, CMP, LIPID #### [address] [address] CO2 [Moles/Vol] 31 mmol/L Normal 23-31 [facility] ([place] Comment on above: Performed By: #### G FR, VIDH, TSH, CMP, LIPID #### [place] [address] Creatinine [Mass/Vol] 0.89 mg/dL Normal 0.55-1.02 [facility] ([place]) Comment on above: Performed By: #### G FR, VIDH, TSH, CMP, LIPID #### [address] [address] Electrolyte Balance 8.0 mEq/L Normal 4.0-15.0 [facility] ([place]) Comment on above: Performed By: #### G FR, VIDH, TSH, CMP, LIPID #### [address] [address] Globulin 2.9 G/dL Normal [facility] ([place] Comment on above: Performed By: #### G FR, VIDH, TSH, CMP, LIPID #### [address] [address] Glucose [Mass/Vol] 116 mg/dL High 83-110 [facility] ([place] Comment on above: Performed By: #### G FR, VIDH, TSH, CMP, LIPID #### [place] [address] Potassium [Moles/Vol] 4.0 mmol/L Normal 3.5-5.1 [facility] ([place]) Comment on above: Performed By: #### G FR, VIDH, TSH, CMP, LIPID #### [address] [place], [place] [address] Sodium [Moles/Vol] 138 mmol/L Normal 136-145 [facility] ([place] Comment on above: Performed By: #### G FR, VIDH, TSH, CMP, LIPID #### [address] [place], [place] [address] Total Protein 6.5 G/dL Normal 6.4-8.2 [facility] ([place] Comment on above: Performed By: #### G FR, VIDH, TSH, CMP, LIPID #### [address] [place], [place] [address] Urea nitrogen [Mass/Vol] 26 mg/dL High 7-18 [facility] ([place] Comment on above: Performed By: #### G FR, VIDH, TSH, CMP, LIPID #### [address] [address] LABORATORYOrdered By: SYSTEM SYSTEM on 11-24-2022 Albumin BCP dye [Mass/Vol] 3.6 G/dL Invalid Interpretation Code 3.4 - 4.8 G/dL AO ADM SS Albumin/Globulin [Mass ratio] 1.2 {ratio} Invalid Interpretation Code 1.1 - 2.5 ratio AO ADM SS ALP [Catalytic activity/Vol] 90 U/L Invalid Interpretation Code 40 - 135 U/L AO ADM SS ALT With P-5'-P [Catalytic activity/Vol] 29 U/L Invalid Interpretation Code 14 - 59 U/L AO ADM SS AST With P-5'-P [Catalytic activity/Vol] 22 U/L Invalid Interpretation Code 10 - 40 U/L AO ADM SS Bilirubin [Mass/Vol] 0.6 mg/dL Invalid Interpretation Code 0.2 - 1.0 mg/dL AO ADM SS Calcium [Mass/Vol] 9.6 mg/dL Invalid Interpretation Code 8.4 - 10.2 mg/dL AO ADM SS Chloride [Moles/Vol] 99 mmol/L Invalid Interpretation Code 98 - 107 mmol/L AO ADM SS CO2 [Moles/Vol] 31 mmol/L Invalid Interpretation Code 23 - 31 mmol/L AO ADM SS Creatinine [Mass/Vol] 0.89 mg/dL Invalid Interpretation Code 0.55 - 1.02 mg/dL AO ADM SS Electrolyte Balance 8.0 mEq/L Invalid Interpretation Code 4.0 - 15.0 mEq/L AO ADM SS GFR 74 ml/min/1.73sqm Invalid Interpretation Code AO Chemistry S GFR Non- 61 ml/min/1.73sqm Invalid Interpretation Code AO Chemistry S Globulin 2.9 G/dL Invalid Interpretation Code AO ADM SS Glucose [Mass/Vol] 116 mg/dL Invalid Interpretation Code 83 - 110 mg/dL AO ADM SS Potassium [Moles/Vol] 4.0 mmol/L Invalid Interpretation Code 3.5 - 5.1 mmol/L AO ADM SS Protein [Mass/Vol] 6.5 G/dL Invalid Interpretation Code 6.4 - 8.2 G/dL AO ADM SS Sodium [Moles/Vol] 138 mmol/L Invalid Interpretation Code 136 - 145 mmol/L AO ADM SS TSH Qn 0.54 m[IU]/L Invalid Interpretation Code 0.36 - 3.74 mcIU/mL AO ADM SS Urea nitrogen [Mass/Vol] 26 mg/dL Invalid Interpretation Code 7 - 18 mg/dL AO ADM SS Urea nitrogen/Creatinine [Mass ratio] 29 ratio Invalid Interpretation Code 7 - 27 ratio AO ADM SS Vit. D 25-Hydroxy 38.6 ng/mL Invalid Interpretation Code AO ADM SS LABORATORYOrdered By: Dav Kendall on 11-24-2022 Basophil, Absolute 0.1 103/mcL Invalid Interpretation Code 0.0 - 0.2 10^3/mcL AO Workflow SS Basophils/100 WBC (Bld) 1.0 % Invalid Interpretation Code 0.0 - 2.5 % AO Workflow SS Eosinophil, Absolute 0.1 103/mcL Invalid Interpretation Code 0.0 - 0.4 10^3/mcL AO Workflow SS Eosinophils/100 WBC (Bld) 0.8 % Invalid Interpretation Code 0.0 - 7.0 % AO Workflow SS Erythrocyte distribution width (RBC) [Ratio] 14.1 % Invalid Interpretation Code 11.5 - 14.5 % AO Workflow SS Hematocrit (Bld) [Volume fraction] 40.0 % Invalid Interpretation Code 37.0 - 47.0 % AO Workflow SS Hemoglobin (Bld) [Mass/Vol] 13.1 G/dL Invalid Interpretation Code 12.0 - 16.0 G/dL AO Workflow SS Lymphocyte, Absolute 2.0 103/mcL Invalid Interpretation Code 0.8 - 3.9 10^3/mcL AO Workflow SS Lymphocytes/100 WBC (Bld) 16.6 % Invalid Interpretation Code 10.0 - 50.0 % AO Workflow SS MCH (RBC) [Entitic mass] 29.7 pg Invalid Interpretation Code 27.0 - 31.2 pg AO Workflow SS MCHC 32.7 G/dL Invalid Interpretation Code 33.0 - 37.0 G/dL AO Workflow SS MCV (RBC) [Entitic vol] 90.8 fL Invalid Interpretation Code 80.0 - 94.0 fL AO Workflow SS Monocyte, Absolute 1.6 103/mcL Invalid Interpretation Code 0.2 - 1.0 10^3/mcL AO Workflow SS Monocytes/100 WBC (Bld) 13.5 % Invalid Interpretation Code 1.7 - 13.0 % AO Workflow SS Neutrophil, Absolute 8.1 103/mcL Invalid Interpretation Code 2.9 - 6.2 10^3/mcL AO Workflow SS Neutrophils/100 WBC (Bld) 68.1 % Invalid Interpretation Code 37.0 - 80.0 % AO Workflow SS Platelet mean volume (Bld) [Entitic vol] 7.1 fL Invalid Interpretation Code 7.4 - 10.4 fL AO Workflow SS Platelets (Bld) [#/Vol] 281 103/mcL Invalid Interpretation Code 130 - 400 10^3/mcL AO Workflow SS RBC (Bld) [#/Vol] 4.40 106/mcL Invalid Interpretation Code 4.20 - 5.40 10^6/mcL AO Workflow SS WBC (Bld) [#/Vol] 11.9 103/mcL Invalid Interpretation Code 4.6 - 10.8 10^3/mcL AO Workflow SS LABORATORYOrdered By: Teena Apple on 11-24-2022 Cholesterol [Mass/Vol] 144 mg/dL Invalid Interpretation Code 0 - 200 mg/dL AO ADM SS Cholesterol in HDL [Mass/Vol] 67 mg/dL Invalid Interpretation Code 40 - 60 mg/dL AO ADM SS Cholesterol in LDL [Mass/Vol] 52 mg/dL Invalid Interpretation Code 0 - 130 mg/dL AO ADM SS Triglyceride [Mass/Vol] 123 mg/dL Invalid Interpretation Code 0 - 150 mg/dL AO ADM SS LIPIDon 11-24-2022 Cholesterol [Mass/Vol] 144 mg/dL Normal 0-200 [facility] [place] Comment on above: Result Comment: Chol esterol Reference Interval: Less than 200 Desirable 200-239 Borderline high risk 240 and above High risk Performed By: #### G FR, VIDH, TSH, CMP, LIPID #### [place] [id number] Cholesterol in HDL [Mass/Vol] 67 mg/dL High 40-60 [facility] ([place]) Comment on above: Performed By: #### G FR, VIDH, TSH, CMP, LIPID #### [place] [id number] Cholesterol in LDL [Mass/Vol] 52 mg/dL Normal 0-130 [facility] [place] Comment on above: Performed By: #### G FR, VIDH, TSH, CMP, LIPID #### [place] [address] Triglyceride [Mass/Vol] 123 mg/dL Normal 0-150 [facility] ([place]) Comment on above: Result Comment: Trig lyceride Reference Interval: Less than 150 Normal 150-199 Borderline high risk 200-499 High risk 500 or higher Very high risk Performed By: #### G FR, VIDH, TSH, CMP, LIPID #### [place] [id number] TSHon 11-24-2022 TSH Qn 0.54 m[IU]/L Normal 0.36-3.74 [facility] ([place] Comment on above: Performed By: #### G FR, VIDH, TSH, CMP, LIPID #### [place] [id number] VIDHon 11-24-2022 Vit. D 25-Hydroxy 38.6 ng/mL Normal [facility] ([place]) Comment on above: Result Comment: Inte rpretive Values Based on Total 25(OH) Vitamin D: Deficient <20 ng/mL Insufficient 20 - <30 ng/mL Sufficient 30-100 ng/mL Performed By: #### G FR, VIDH, TSH, CMP, LIPID #### [address] [address] CR Ribs w/ PA Chest Righton 05-13-2022 CR Ribs w/ PA Chest Right [facility]: [id number]iology ACCESSION EXAM DATE/TIME PROCEDURE ORDERING PROVIDER [id number] 05/13/2022 13:55 EDT CR Ribs w/ PA Chest LUZ COOPER, DA N Right CPT code 19305 Reason For Exam (CR Ribs w/ PA Chest Right) right rib pain after fall Report Indication: Rib pain after fall. Comparison 11/21/2020. Findings and impression: Chest and ribs multiple views. Lungs clear. No pneumothorax. No major volume loss. Trachea midline. Minimally displaced fracture deformity suspected lateral right 10th rib approximately. Please correlate clinically. Report Dictated on Final Dictated: 05/13/2022 2:09 pm Dictating Physician: MD ESCOBAR JOHN Signed Date and Time: 05/13/2022 2:10 pm Signed by: MD ESCOBAR JOHN Transcribed Date and Time: 05/13/2022 2:09 Normal [facility] CT Cervical Spine WO Contras ton 05-13-2022 [id number] Computed Tomography ACCESSION EXAM DATE/TIME PROCEDURE ORDERING PROVIDER [id number] 05/13/2022 13:[address] Spine Cervical w/o LUZ COOPRE CONNOR N Contrast CPT code 45299 Reason For Exam (CT Spine Cervical w/o Contrast) head injury Report CLINICAL INFORMATION: Head and neck pain after trauma. Fall. HEAD CT: 3 mm axial cuts through the brain are provided without IV contrast. The examination is compared to a previous study dated 05/01/2019. FINDINGS: The ventricles are within normal limits in respect to their size and configuration. There is no evidence of mass or mass-effect. There are no abnormal intra- or extra-axial fluid collections. No hemorrhage is identified. Patchy low-attenuation is noted within the periventricular, deep, and subcortical white matter. There is no CT evidence of an acute infarct. Bone windows demonstrate no evidence of fracture and the visualized paranasal sinuses and mastoid air cells are clear. IMPRESSION: 1. Small-vessel ischemic changes, not unusual for patient age. 2. No CT evidence of an acute intracranial process. C-SPINE CT: 1 mm axial cuts through the cervical spine are provided without IV contrast. Coronal and sagittal reconstructions are reviewed. The examination is compared to a previous study dated 05/01/2019. FINDINGS: The alignment of the cervical spine is within normal limits. Disc space narrowing and spurring are most pronounced at C4-5 and C5-6. Vertebral body heights are maintained. There is no evidence of fracture or traumatic subluxation. A 1.5 cm hypodense nodule is noted in the posterior right lobe of the thyroid. IMPRESSION: 1. Mild degenerative changes in the mid cervical spine. 2. No evidence of fracture or traumatic subluxation. 3. Stable right lobe thyroid nodule. Computed Tomography Report Report Dictated on --- Final --- Dictated: 05/13/2022 2:03 pm Dictating Physician: MD AU JEFFREY Signed Date and Time: 05/13/2022 2:11 pm Signed by: MD AU JEFFREY Transcribed Date and Time: 05/13/2022 2:03 [facility] Alec Au MD - 05/13/2022 Patient Name: ERLINDA PATHAK Computed Tomography ACCESSION EXAM DATE/TIME PROCEDURE ORDERING PROVIDER [id number] 05/13/2022 13:[address] Spine Cervical w/o LUZ COOPER CONNOR N Contrast CPT code 59375 Reason For Exam (CT Spine Cervical w/o Contrast) head injury Report CLINICAL INFORMATION: Head and neck pain after trauma. Fall. HEAD CT: 3 mm axial cuts through the brain are provided without IV contrast. The examination is compared to a previous study dated 05/01/2019. FINDINGS: The ventricles are within normal limits in respect to their size and configuration. There is no evidence of mass or mass-effect. There are no abnormal intra- or extra-axial fluid collections. No hemorrhage is identified. Patchy low-attenuation is noted within the periventricular, deep, and subcortical white matter. There is no CT evidence of an acute infarct. Bone windows demonstrate no evidence of fracture and the visualized paranasal sinuses and mastoid air cells are clear. IMPRESSION: 1. Small-vessel ischemic changes, not unusual for patient age. 2. No CT evidence of an acute intracranial process. C-SPINE CT: 1 mm axial cuts through the cervical spine are provided without IV contrast. Coronal and sagittal reconstructions are reviewed. The examination is compared to a previous study dated 05/01/2019. FINDINGS: The alignment of the cervical spine is within normal limits. Disc space narrowing and spurring are most pronounced at C4-5 and C5-6. Vertebral body heights are maintained. There is no evidence of fracture or traumatic subluxation. A 1.5 cm hypodense nodule is noted in the posterior right lobe of the thyroid. IMPRESSION: 1. Mild degenerative changes in the mid cervical spine. 2. No evidence of fracture or traumatic subluxation. 3. Stable right lobe thyroid nodule. Computed Tomography Report Report Dictated on --- Final --- Dictated: 05/13/2022 2:03 pm Dictating Physician: MD AU JEFFREY Signed Date and Time: 05/13/2022 2:11 pm Signed by: MD AU JEFFREY Transcribed Date and Time: 05/13/2022 2:03 [facility] Work Phone: [facility] Work Phone: CT Head WO Contraston 2021 Patient Name: ERLINDA PATHAK Computed Tomography ACCESSION EXAM DATE/TIME PROCEDURE ORDERING PROVIDER [id number] 05/13/2022 13:[address] Head or Brain w/o LUZ COOPER CONNOR N Contrast CPT code 08877 Reason For Exam (CT Head or Brain w/o Contrast) head injury Report CLINICAL INFORMATION: Head and neck pain after trauma. Fall. HEAD CT: 3 mm axial cuts through the brain are provided without IV contrast. The examination is compared to a previous study dated 05/01/2019. FINDINGS: The ventricles are within normal limits in respect to their size and configuration. There is no evidence of mass or mass-effect. There are no abnormal intra- or extra-axial fluid collections. No hemorrhage is identified. Patchy low-attenuation is noted within the periventricular, deep, and subcortical white matter. There is no CT evidence of an acute infarct. Bone windows demonstrate no evidence of fracture and the visualized paranasal sinuses and mastoid air cells are clear. IMPRESSION: 1. Small-vessel ischemic changes, not unusual for patient age. 2. No CT evidence of an acute intracranial process. C-SPINE CT: 1 mm axial cuts through the cervical spine are provided without IV contrast. Coronal and sagittal reconstructions are reviewed. The examination is compared to a previous study dated 05/01/2019. FINDINGS: The alignment of the cervical spine is within normal limits. Disc space narrowing and spurring are most pronounced at C4-5 and C5-6. Vertebral body heights are maintained. There is no evidence of fracture or traumatic subluxation. A 1.5 cm hypodense nodule is noted in the posterior right lobe of the thyroid. IMPRESSION: 1. Mild degenerative changes in the mid cervical spine. 2. No evidence of fracture or traumatic subluxation. 3. Stable right lobe thyroid nodule. Computed Tomography Report Report Dictated on --- Final --- Dictated: 05/13/2022 2:03 pm Dictating Physician: MD AU JEFFREY Signed Date and Time: 05/13/2022 2:11 pm Signed by: MD AU JEFFREY Transcribed Date and Time: 05/13/2022 2:03 [facility] Alec Au MD - 05/13/2022 [id number] Computed Tomography ACCESSION EXAM DATE/TIME PROCEDURE ORDERING PROVIDER [id number] 05/13/2022 13:[address] Head or Brain w/o LUZ COOPER CONNOR N Contrast CPT code 43118 Reason For Exam (CT Head or Brain w/o Contrast) head injury Report CLINICAL INFORMATION: Head and neck pain after trauma. Fall. HEAD CT: 3 mm axial cuts through the brain are provided without IV contrast. The examination is compared to a previous study dated 05/01/2019. FINDINGS: The ventricles are within normal limits in respect to their size and configuration. There is no evidence of mass or mass-effect. There are no abnormal intra- or extra-axial fluid collections. No hemorrhage is identified. Patchy low-attenuation is noted within the periventricular, deep, and subcortical white matter. There is no CT evidence of an acute infarct. Bone windows demonstrate no evidence of fracture and the visualized paranasal sinuses and mastoid air cells are clear. IMPRESSION: 1. Small-vessel ischemic changes, not unusual for patient age. 2. No CT evidence of an acute intracranial process. C-SPINE CT: 1 mm axial cuts through the cervical spine are provided without IV contrast. Coronal and sagittal reconstructions are reviewed. The examination is compared to a previous study dated 05/01/2019. FINDINGS: The alignment of the cervical spine is within normal limits. Disc space narrowing and spurring are most pronounced at C4-5 and C5-6. Vertebral body heights are maintained. There is no evidence of fracture or traumatic subluxation. A 1.5 cm hypodense nodule is noted in the posterior right lobe of the thyroid. IMPRESSION: 1. Mild degenerative changes in the mid cervical spine. 2. No evidence of fracture or traumatic subluxation. 3. Stable right lobe thyroid nodule. Computed Tomography Report Report Dictated on --- Final --- Dictated: 05/13/2022 2:03 pm Dictating Physician: MD AU JEFFREY Signed Date and Time: 05/13/2022 2:11 pm Signed by: MD AU JEFFREY Transcribed Date and Time: 05/13/2022 2:03 [facility] Work Phone: CT Head WO ContrastOrdered B y: Alec Au on 05-13-2022 [facility] Work Phone: CT Head or Brain w/o Contras ton 05-13-2022 CT Head or Brain w/o Contrast Patient Name: ERLINDA PATHAK [facility]#: [id number] Computed Tomography ACCESSION EXAM DATE/TIME PROCEDURE ORDERING PROVIDER [id number] 05/13/2022 13:[address] Head or Brain w/o LUZ COOPER CONNOR N Contrast CPT code 67459 Reason For Exam (CT Head or Brain w/o Contrast) head injury Report CLINICAL INFORMATION: Head and neck pain after trauma. Fall. HEAD CT: 3 mm axial cuts through the brain are provided without IV contrast. The examination is compared to a previous study dated 05/01/2019. FINDINGS: The ventricles are within normal limits in respect to their size and configuration. There is no evidence of mass or mass-effect. There are no abnormal intra- or extra-axial fluid collections. No hemorrhage is identified. Patchy low-attenuation is noted within the periventricular, deep, and subcortical white matter. There is no CT evidence of an acute infarct. Bone windows demonstrate no evidence of fracture and the visualized paranasal sinuses and mastoid air cells are clear. IMPRESSION: 1. Small-vessel ischemic changes, not unusual for patient age. 2. No CT evidence of an acute intracranial process. C-SPINE CT: 1 mm axial cuts through the cervical spine are provided without IV contrast. Coronal and sagittal reconstructions are reviewed. The examination is compared to a previous study dated 05/01/2019. FINDINGS: The alignment of the cervical spine is within normal limits. Disc space narrowing and spurring are most pronounced at C4-5 and C5-6. Vertebral body heights are maintained. There is no evidence of fracture or traumatic subluxation. A 1.5 cm hypodense nodule is noted in the posterior right lobe of the thyroid. IMPRESSION: 1. Mild degenerative changes in the mid cervical spine. 2. No evidence of fracture or traumatic subluxation. 3. Stable right lobe thyroid nodule. Computed Tomography Report Report Dictated on Final Dictated: 05/13/2022 2:03 pm Dictating Physician: MD AU JEFFREY Signed Date and Time: 05/13/2022 2:11 pm Signed by: MD AU JEFFREY Transcribed Date and Time: 05/13/2022 2:03 Normal [facility] CT Spine Cervical w/o Matthew bowling 05-13-2022 CT Spine Cervical w/o Contrast Patient Name: ERLINDA PATHAK [facility]#: [id number] Computed Tomography ACCESSION EXAM DATE/TIME PROCEDURE ORDERING PROVIDER [id number] 05/13/2022 13:[address] Spine Cervical w/o LUZ COOPER CONNOR N Contrast CPT code 51294 Reason For Exam (CT Spine Cervical w/o Contrast) head injury Report CLINICAL INFORMATION: Head and neck pain after trauma. Fall. HEAD CT: 3 mm axial cuts through the brain are provided without IV contrast. The examination is compared to a previous study dated 05/01/2019. FINDINGS: The ventricles are within normal limits in respect to their size and configuration. There is no evidence of mass or mass-effect. There are no abnormal intra- or extra-axial fluid collections. No hemorrhage is identified. Patchy low-attenuation is noted within the periventricular, deep, and subcortical white matter. There is no CT evidence of an acute infarct. Bone windows demonstrate no evidence of fracture and the visualized paranasal sinuses and mastoid air cells are clear. IMPRESSION: 1. Small-vessel ischemic changes, not unusual for patient age. 2. No CT evidence of an acute intracranial process. C-SPINE CT: 1 mm axial cuts through the cervical spine are provided without IV contrast. Coronal and sagittal reconstructions are reviewed. The examination is compared to a previous study dated 05/01/2019. FINDINGS: The alignment of the cervical spine is within normal limits. Disc space narrowing and spurring are most pronounced at C4-5 and C5-6. Vertebral body heights are maintained. There is no evidence of fracture or traumatic subluxation. A 1.5 cm hypodense nodule is noted in the posterior right lobe of the thyroid. IMPRESSION: 1. Mild degenerative changes in the mid cervical spine. 2. No evidence of fracture or traumatic subluxation. 3. Stable right lobe thyroid nodule. Computed Tomography Report Report Dictated on Final Dictated: 05/13/2022 2:03 pm Dictating Physician: MD AU JEFFREY Signed Date and Time: 05/13/2022 2:11 pm Signed by: MD AU JEFFREY Transcribed Date and Time: 05/13/2022 2:03 Normal [facility] No Panel Informationon 05-13 Radiology Study observation (narrative) [facility] Work Phone: XR RIBS RIGHT INCLUDE CHEST (MIN 3 VIEWS)on 05-13-2022 Patient Name: ERLINDA PATHAK Diagnostic Radiology ACCESSION EXAM DATE/TIME PROCEDURE ORDERING PROVIDER [id number] 05/13/2022 13:55 EDT CR Ribs w/ PA Chest LUZ COOPER, DA Velázquez Right CPT code 07669 Reason For Exam (CR Ribs w/ PA Chest Right) right rib pain after fall Report Indication: Rib pain after fall. Comparison 11/21/2020. Findings and impression: Chest and ribs multiple views. Lungs clear. No pneumothorax. No major volume loss. Trachea midline. Minimally displaced fracture deformity suspected lateral right 10th rib approximately. Please correlate clinically. Report Dictated on --- Final --- Dictated: 05/13/2022 2:09 pm Dictating Physician: MD ESCOBAR JOHN Signed Date and Time: 05/13/2022 2:10 pm Signed by: MD ESCOBAR JOHN Transcribed Date and Time: 05/13/2022 2:09 [facility] Alek Escobar MD - 05/13/2022 Patient Name: ERLINDA PATHAK Diagnostic Radiology ACCESSION EXAM DATE/TIME PROCEDURE ORDERING PROVIDER [id number] 05/13/2022 13:55 EDT CR Ribs w/ PA Chest LUZ COOPER, DA N Right CPT code 21219 Reason For Exam (CR Ribs w/ PA Chest Right) right rib pain after fall Report Indication: Rib pain after fall. Comparison 11/21/2020. Findings and impression: Chest and ribs multiple views. Lungs clear. No pneumothorax. No major volume loss. Trachea midline. Minimally displaced fracture deformity suspected lateral right 10th rib approximately. Please correlate clinically. Report Dictated on --- Final --- Dictated: 05/13/2022 2:09 pm Dictating Physician: MD ESCOBAR JOHN Signed Date and Time: 05/13/2022 2:10 pm Signed by: MD ESCOBAR JOHN Transcribed Date and Time: 05/13/2022 2:09 [facility] Work Phone: XR RIBS RIGHT INCLUDE CHEST (MIN 3 VIEWS)Ordered By: Alek Escobar on 05-13-2022 [facility] Work Phone: US SOFT TISSUE MASS OF RT AR M OR LEGon 12-27-2021 US SOFT TISSUE MASS OF RT ARM OR LEG ORIGINAL EXAMINATION: SOFT TISSUE ULTRASOUND OF THE RIGHT EXTREMITY12/27/2021 10:35 am TECHNIQUE: Duplex ultrasound using B-mode/marmolejo scaled imaging and Doppler spectral analysis and color flow was obtained of the right extremity. COMPARISON: None HISTORY: ORDERING SYSTEM PROVIDED HISTORY: Reason for Exam: right popliteal cyst swelling posterior to the knee FINDINGS: There is a complex right popliteal cyst of 5.6 x 3.3 x 1.5 cm with internal echoes, synovial thickening and septations. No evidence of leakage or rupture. IMPRESSION: Large popliteal cyst in the right knee. Interpreted by: Liam Piña MD Preliminary Report By: Liam Piña MD Electronically signed By Liam Piña MD Dictated Date: 12/27/2021 12:06:19 PM Prelim Date: 12/27/2021 12:07:09 PM Sign Date: 12/27/2021 12:07:09 PM Ordering Provider: LIVIER Galaviz [facility] [place] XR KNEE THREE VIEWS RIGHTon 12-27-2021 XR KNEE THREE VIEWS RIGHT ORIGINAL EXAMINATION: THREE XRAY VIEWS OF THE RIGHT KNEE 12/27/2021 10:57 am COMPARISON: None. HISTORY: ORDERING SYSTEM PROVIDED HISTORY: Reason for Exam: right posterior knee pain FINDINGS: There is no acute fracture or dislocation. Osseous mineralization is within normal limits. Mild to moderate tricompartmental joint space narrowing is present with chondrocalcinosis. No significant knee joint effusion is seen. Suspect intracapsular osteochondral bodies of the posterior femorotibial compartment joint space measuring up to 3 mm. No aggressive osseous lesions are noted. IMPRESSION: 1. No acute osseous abnormalities. 2. Tricompartmental degenerative change with chondrocalcinosis. Suspect intracapsular osteochondral bodies of the posterior femorotibial joint capsule. Interpreted by: Albert Holder DO Preliminary Report By: Albert Holder DO Electronically signed By Albert Holder DO Dictated Date: 12/27/2021 12:14:47 PM Prelim Date: 12/27/2021 12:17:26 PM Sign Date: 12/27/2021 12:17:26 PM Ordering Provider: LIVIER Galaviz [facility] [place] ED NOTEon 09-14-2021 ED NOTE HNO ID: [id number] Author: Jackie Brooks RN Service: Emergency Medicine Author Type: Registered Nurse Type: ED Notes Filed: 09/14/2021 12:25 AM Note Text: Patient has lump behind right knee Normal [facility] ED PROV NOTEon 09-14-2021 ED PROV NOTE HNO ID: [id number] Author: Abhishek Moses MD Service: ? Author Type: Physician Type: ED Provider Notes Filed: 09/14/2021 7:07 AM Note Text: ED Provider Note Patient Name: Erlinda Pathak SERVICE DATE: 09/14/21 History Patient presents with: Leg Pain Patient is a 81-year-old white female that comes in with chief complaint of pain behind the right knee. She actually complains of a lump behind her right knee. She is not sure exactly how long its been there for. The daughter brought the patient in that she was concerned that the patient might have a blood clot/DVT. The patient has never had surgery on either knee. She is complaining of pain behind the knee especially when she palpates that area. She has not noted any redness or swelling or size difference between the 2 lower extremities. She did travel by car back and forth to [place] recently. She has never had a DVT before. No past medical history on file. No past surgical history on file. No family history on file. Social History Tobacco Use - Smoking status: Not on file Substance and Sexual Activity - Alcohol use: Not on file - Drug use: Not on file - Sexual activity: Not on file ALLERGIES No Known Allergies Review of Systems All other systems reviewed and are negative. Physical Exam Vitals [09/14/21 0014] BP Pulse Temp Temp src Resp SpO2 Weight Height 145/92 82 36.3 ?C (97.3 ?F) Temporal 16 99 % 83.9 kg (185 lb) -- Physical Exam Vitals and nursing note reviewed. Constitutional: Appearance: Normal appearance. She is well-developed. HENT: Head: Normocephalic and atraumatic. Eyes: Extraocular Movements: Extraocular movements intact. Conjunctiva/sclera: Conjunctivae normal. Musculoskeletal: Cervical back: Normal range of motion and neck supple. Comments: Patient has normal DP and PT pulses and sensation and capillary refill. There is no appreciable swelling or size difference in the right lower extremity compared to the left. There is no redness or swelling. The patient does have tenderness in the right popliteal fossa with a palpable fluid collection. Skin: General: Skin is warm and dry. Neurological: General: No focal deficit present. Mental Status: She is alert and oriented to person, place, and time. Psychiatric: Mood and Affect: Mood normal. Behavior: Behavior normal. 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 Looking at her knees she has obvious arthritic changes. She has absolutely no signs of a DVT. I did order right knee x-ray series which showed No acute fracture or malalignment. Possible and articularis bodies in the posterior joint recess as described. ?Small knee joint effusion. ?Mild degenerative changes with chondrocalcinosis. Osteopenia. I recommended that the patient follow-up with primary care as an outpatient which he actually has an appointment with today and an outpatient ultrasound to be scheduled of that area to ensure that it is a Avilez's cyst and nothing different. Patient was given an ice pack and told to rest ice elevate use anti-inflammatories and given strict return precautions. She was discharged home in stable condition. SIGNATURE: MD Abhishek Koo MD 09/14/21 0707 Normal [facility] XR KNEE 4V AP/LAT/OBLS RTon 09-14-2021 XR KNEE 4V AP/LAT/OBLS RT * * *Final Report* * * DATE OF EXAM: Sep 14 2021 12:45AM GRX 5205 - XR KNEE 4V AP/LAT/OBLS RT / PROCEDURE REASON: Joint pain, knee * * * * Physician Interpretation * * * * EXAMINATION: XR KNEE 4V AP/LAT/OBLS RT HISTORY: NKI + Posterior Right Knee Pain. No hx of surgery. Joint pain, knee. TECHNIQUE: XR KNEE 4V AP/LAT/OBLS RT Laterality: RIGHT Number of different views (projections): 4 M: XB_1 COMPARISON: None. RESULT: No acute fracture or malalignment. Mild tricompartmental knee joint osteoarthritis with chondrocalcinosis. Small knee joint effusion. Extensor mechanism appears grossly intact. Osteopenia. There are several small calcifications which project over the expected location of the posterior joint recess medially which may represent intra-articular loose bodies. IMPRESSION: No acute fracture or malalignment. Possible and articularis bodies in the posterior joint recess as described. Small knee joint effusion. Mild degenerative changes with chondrocalcinosis. Osteopenia. Admissions Consultant: JACEK Transcribe Date/Time: Sep 14 2021 12:49A Dictated by : MARIO MORA MD This examination was interpreted and the report reviewed and electronically signed by: MARIO MORA MD on Sep 14 2021 12:52AM EST [id number] Normal [facility] Basic Metabolic Panelon - Anion gap [Moles/Vol] 5 mmol/L [place], [place] Calcium [Mass/Vol] 9.6 mg/dL 8.4 - 10. 4 mg/dL [place], [place] Chloride [Moles/Vol] 101 mmol/L 98 - 10 7 mmol/L [place] CO2 [Moles/Vol] 31 mmol/L High 22 - 30 mmol/L [place] Creatinine [Mass/Vol] 0.91 mg/dL 0.52 - 1.25 mg/dL [place] EGFR IF NonAfrican [place] 60.3 mL/min >60 [place] Comment on above: KDIGO guidelines pro vide the following GFR categories: Stage GFR(ml/min/1.73 m2) Terms G1 >=90 Normal or high G2 60-89 Mildly decreased* G3a 45-59 Mildly to moderately decreased G3b 30-44 Moderately to severely decreased G4 15-29 Severely decreased G5 <15 Kidney failure *Relative to young adult level. In the absence of evidence of kidney damage, neither GFR category G1 nor G2 fulfill the criteria for CKD. The CKD-EPI equation is validated in individuals 18 years of age and older. Currently the best equation for estimating glomerular filtration rate (GFR) from serum creatinine in children is the Bedside Lacy equation. It is less accurate in patients with extremes of muscle mass, restriction of dietary protein, ingestion of creatine, extra-renal metabolism of creatinine, or treatment with medications that affect renal tubular creatinine secretion. GFR/1.73 sq M predicted among blacks MDRD (S/P/Bld) [Vol rate/Area] 69.9 mL/min/{1.73_m2} >60 [place] Glucose [Mass/Vol] 88 mg/dL 70 - 100 mg/dL [place] Interpretation and review of laboratory results Abnormal [place] Potassium [Moles/Vol] 4.2 mmol/L 3.5 - 5.1 mmol/L [place] Sodium [Moles/Vol] 137 mmol/L 135 - 145 mmol/L [place] Urea nitrogen [Mass/Vol] 15 mg/dL 7 - 20 mg/dL [place] [facility], [address] [place] [address] [place] CTA Chest W WO (PE study)on 11-21-2020 Patient Name: ERLINDA PATHAK Computed Tomography ACCESSION EXAM DATE/TIME PROCEDURE ORDERING PROVIDER [id number] 11/21/2020 14:42 EST CTA Chest w/ + w/o [id number] -ARNOLDO VEGA Contrast CPT code 83631 Q9967 Reason For Exam (CTA Chest w/ + w/o Contrast) SOB, palipitations, Tachycardia Report Examination: CT angiogram chest Indication: SOB, palipitations, Tachycardia Technique: Axial CT angiographic images of the chest were obtained from the thoracic inlet through the lung bases at 1 mm intervals with IV contrast (75 cc Isovue 370). The patient had to be reinjected with 75 mL Isovue as the scanner malfunctioned. Images were reformatted on a separate 3-D workstation concurrently by myself and reviewed with volume rendering. Findings: There are no pulmonary arterial filling defects to suggest acute pulmonary embolus. The aorta and pulmonary artery are grossly of normal caliper. There is mild calcification of the thoracic aorta. There is no obvious aortic dissection. No sizable pleural or pericardial effusion is present. There are multiple subcentimeter mediastinal lymph nodes. There is scattered air trapping within the bilateral lungs with mild atelectasis or scarring. There is tubular and branching opacity within the right middle lobe on axial images 174-177 small nodular density of the left lower lobe measures approximately 4 mm on image 251 of series 11 Small hypodense liver lesions are most suggestive of small cysts. There are gallstones dependently in the gallbladder. There is a small hiatal hernia. Scoliosis and mild degenerative changes of the spine are present. Moderate to severe degenerative disc disease is present towards the left in the upper lumbar region along the concavity of the scoliosis. Impression: No CT evidence of acute pulmonary embolus. Coronary artery calcification versus stent is present within the LAD. Computed Tomography Report Scattered air trapping. Mild peribronchial thickening of the lungs. Tubular branching opacity within the right middle lobe. Short-term interval follow-up is recommended to document resolution. Cholelithiasis. Report Dictated on --- Final --- Dictated: 11/21/2020 3:11 pm Dictating Physician: MD RODGERS KRIKOR Signed Date and Time: 11/21/2020 3:23 pm Signed by: MD RODGERS KRIKOR Transcribed Date and Time: 11/21/2020 3:11 [place] Srinivas, [facility] Incoming Radiology Results From [facility] - 11/21/2020 3:24 PM EST Patient Name: ERLINDA PATHAK [facility]#: [id number] Computed Tomography ACCESSION EXAM DATE/TIME PROCEDURE ORDERING PROVIDER [id number] 11/21/2020 14:42 EST CTA Chest w/ + w/o [id number] -ARNOLDO VEGA Contrast CPT code 42750 Q9967 Reason For Exam (CTA Chest w/ + w/o Contrast) SOB, palipitations, Tachycardia Report Examination: CT angiogram chest Indication: SOB, palipitations, Tachycardia Technique: Axial CT angiographic images of the chest were obtained from the thoracic inlet through the lung bases at 1 mm intervals with IV contrast (75 cc Isovue 370). The patient had to be reinjected with 75 mL Isovue as the scanner malfunctioned. Images were reformatted on a separate 3-D workstation concurrently by myself and reviewed with volume rendering. Findings: There are no pulmonary arterial filling defects to suggest acute pulmonary embolus. The aorta and pulmonary artery are grossly of normal caliper. There is mild calcification of the thoracic aorta. There is no obvious aortic dissection. No sizable pleural or pericardial effusion is present. There are multiple subcentimeter mediastinal lymph nodes. There is scattered air trapping within the bilateral lungs with mild atelectasis or scarring. There is tubular and branching opacity within the right middle lobe on axial images 174-177 small nodular density of the left lower lobe measures approximately 4 mm on image 251 of series 11 Small hypodense liver lesions are most suggestive of small cysts. There are gallstones dependently in the gallbladder. There is a small hiatal hernia. Scoliosis and mild degenerative changes of the spine are present. Moderate to severe degenerative disc disease is present towards the left in the upper lumbar region along the concavity of the scoliosis. Impression: No CT evidence of acute pulmonary embolus. Coronary artery calcification versus stent is present within the LAD. Computed Tomography Report Scattered air trapping. Mild peribronchial thickening of the lungs. Tubular branching opacity within the right middle lobe. Short-term interval follow-up is recommended to document resolution. Cholelithiasis. Report Dictated on --- Final --- Dictated: 11/21/2020 3:11 pm Dictating Physician: MD RODGERS KRIKOR Signed Date and Time: 11/21/2020 3:23 pm Signed by: MD RODGERS KRIKOR Transcribed Date and Time: 11/21/2020 3:11 [place] Hemogram (CBC) w/Auto Diffon 11-21-2020 Absolute Baso # 0.1 10*3/uL 0 - 0.2 10*3/uL [place] Absolute Neut # 7.2 10*3/uL High 1.8 - 7 10*3/uL [place] Basophils/100 WBC (Bld) 1.2 % 0 - 2 % M [place] Eosinophils (Bld) [#/Vol] 0.1 10*3/uL 0 - 0.5 10*3/uL [place] Eosinophils/100 WBC (Bld) 0.7 % Low 1 - 6 % [place] Erythrocyte distribution width (RBC) [Ratio] 14.3 % 11.5 - 14.5 % [place] Granulocytes/100 WBC (Bld) 75.4 % 40 - 80 % [place] Hematocrit (Bld) [Volume fraction] 46.3 % 35 - 47 % [place] Hemoglobin (Bld) [Mass/Vol] 15.1 g/dL 11.7 - 16 g/dL [place] Interpretation and review of laboratory results Abnormal [place] Lymphocytes (Bld) [#/Vol] 1.5 10*3/uL 1 - 4.3 10*3/uL [place] Lymphocytes/100 WBC (Bld) 15.9 % Low 20 - 40 % [place] MCH (RBC) [Entitic mass] 30.1 pg 26 - 34 pg [place] MCHC (RBC) [Mass/Vol] 32.7 % 32 - 36 % Michelle [place], [place] MCV (RBC) [Entitic vol] 92.0 fL 79 - 98 fL [place], [place] Monocytes (Bld) [#/Vol] 0.6 10*3/uL 0 - 0.8 10*3/uL [place] Monocytes/100 WBC (Bld) 6.8 % 2 - 10 % [place] Platelet mean volume (Bld) [Entitic vol] 7.6 fL 7.4 - 10.4 fL [place] Platelets (Bld) [#/Vol] 238 10*3/uL 140 - 440 10*3/uL [place] RBC (Bld) [#/Vol] 5.03 10*6/uL 3.8 - 5.2 10*6/uL [place] WBC (Bld) [#/Vol] 9.5 10*3/uL 3.6 - 10.7 10*3/uL [place] Test Performed by [facility], [address] [place] [address] [place] Troponin x1on 11-21-2020 Interpretation and review of laboratory results Abnormal [place] Troponin I.cardiac [Mass/Vol] 0.040 ng/mL High 0 - 0.034 ng/mL [place] Comment on above: . Test Performed by [facility], [address] [place] [id number] [place] XR CHEST PORTABLEon 11-21-19 Srinivas, [facility] Incoming Radiology Results From [facility] - 11/21/2020 1:08 PM EST Patient Name: ERLINDA PATHAK Diagnostic Radiology ACCESSION EXAM DATE/TIME PROCEDURE ORDERING PROVIDER [id number] 11/21/2020 13:01 EST CR Chest Portable [id number] -SILVIA ARNOLDO CPT code 19266 Reason For Exam (CR Chest Portable) palpitations Report Portable upright AP view of the chest, 11/21/2020. Reason for examination: Palpitations. COMPARISON: April 30, 2018. FINDINGS: Cardiac size is within normal limits. Pulmonary vasculature is normal. There is atherosclerotic calcification in the aorta. The lungs appear somewhat hyperinflated. No focal infiltrate is noted. No pleural effusion or pneumothorax is identified. There is mild bilateral apical pleural thickening which is similar to the previous study. IMPRESSION: Findings suggestive of obstructive pulmonary disease. No definite acute process identified. Report Dictated on --- Final --- Dictated: 11/21/2020 1:01 pm Dictating Physician: MD LIRA JOE M Signed Date and Time: 11/21/2020 1:07 pm Signed by: MD LIRA JOE M Transcribed Date and Time: 11/21/2020 [facility] Diagnostic Radiology ACCESSION EXAM DATE/TIME PROCEDURE ORDERING PROVIDER [id number] 11/21/2020 13:01 EST CR Chest Portable [id number] -SILVIAARNOLDO CPT code 43512 Reason For Exam (CR Chest Portable) palpitations Report Portable upright AP view of the chest, 11/21/2020. Reason for examination: Palpitations. COMPARISON: April 30, 2018. FINDINGS: Cardiac size is within normal limits. Pulmonary vasculature is normal. There is atherosclerotic calcification in the aorta. The lungs appear somewhat hyperinflated. No focal infiltrate is noted. No pleural effusion or pneumothorax is identified. There is mild bilateral apical pleural thickening which is similar to the previous study. IMPRESSION: Findings suggestive of obstructive pulmonary disease. No definite acute process identified. Report Dictated on --- Final --- Dictated: 11/21/2020 1:01 pm Dictating Physician: MD LIRA JOE M Signed Date and Time: 11/21/2020 1:07 pm Signed by: MD LIRA JOE M Transcribed Date and Time: 11/21/2020 1:01 [facility] [place], [place] Basic Metabolic Panelon 06-19 Anion gap molar conc 10 Normal [facility] Comment on above: Performed By: #### H EMOG, LFT3, BMP3, PAB #### [facility] [address] [place] [address] Calcium mass conc 9.7 mg/dL Normal 8.4-10.4 [facility] Comment on above: Performed By: #### H EMOG, LFT3, BMP3, PAB #### [facility] [address] [place] [address] CO2 molar conc 31 mmol/L High 22-30 [facility] Comment on above: Performed By: #### H EMOG, LFT3, BMP3, PAB #### [facility] [address] [place] [address] Creatinine mass conc 0.62 mg/dL Normal 0.52-1.25 [facility] Comment on above: Performed By: #### H EMOG, LFT3, BMP3, PAB #### [facility] [address] [place] [address] GFR/1.73 sq M predicted among blacks MDRD vol rate/area (S/P/Bld) mL/min/{1.73_m2} Normal >60 [facility] Comment on above: Performed By: #### H EMOG, LFT3, BMP3, PAB #### [facility] [address] [place] [address] GFR/1.73 sq M predicted among non-blacks MDRD vol rate/area (S/P/Bld) mL/min/{1.73_m2} Normal >60 [facility] Comment on above: Result Comment: Sour ce- MDRD equation with creatinine calibration to IDMS(NKDEP) eGFR not recommended for drug dose adjustment Performed By: #### H EMOG, LFT3, BMP3, PAB #### [facility] [address] [place] [address] Glucose mass conc 67 mg/dL Low 70-100 [facility] Comment on above: Performed By: #### H EMOG, LFT3, BMP3, PAB #### [facility] [address] [place] [address] Urea nitrogen mass conc 16 mg/dL Normal 7-20 [facility] Comment on above: Performed By: #### H EMOG, LFT3, BMP3, PAB #### [facility] [address] [place] [address] Potassium molar conc 4.7 mmol/L Normal 3.5-5.1 [facility] Comment on above: Performed By: #### H EMOG, LFT3, BMP3, PAB #### [facility] [address] [place] [address] Chloride molar conc 99 mmol/L Normal 98-107 [facility] Comment on above: Performed By: #### H EMOG, LFT3, BMP3, PAB #### [facility] [address] [place] [address] Sodium molar conc 141 mmol/L Normal 137-145 [facility] Comment on above: Performed By: #### H EMOG, LFT3, BMP3, PAB #### [facility] [address] [place] [address] Hemogramon 07-05-2018 Erythrocyte distribution width Ratio (RBC) 16.4 % High 11.5-14.5 [facility] Comment on above: Performed By: #### H EMOG, LFT3, BMP3, PAB #### [facility] [address] [place] [address] Hematocrit Volume Fraction (Bld) 43.6 % Normal 35.0-47.0 [facility] Comment on above: Performed By: #### H EMOG, LFT3, BMP3, PAB #### [facility] [address] [place] [address] Hemoglobin mass conc (Bld) 14.0 g/dL Normal 11.7-16.0 [facility] Comment on above: Performed By: #### H EMOG, LFT3, BMP3, PAB #### [facility] [address] [place] [address] MCH Entitic mass (RBC) 28.2 pg Normal 26.0-34.0 [facility] Comment on above: Performed By: #### H EMOG, LFT3, BMP3, PAB #### [facility] [address] [place] [address] MCHC mass conc (RBC) 32.1 % Normal 32.0-36.0 [facility] Comment on above: Performed By: #### H EMOG, LFT3, BMP3, PAB #### [facility] [address] [place] [address] MCV Entitic volume (RBC) 88.0 fL Normal 79.0-98.0 [facility] Comment on above: Performed By: #### H EMOG, LFT3, BMP3, PAB #### [facility] [address] [place] [address] Platelet mean volume Entitic volume (Bld) 8.2 fL Normal 7.4-10.4 [facility] Comment on above: Performed By: #### H EMOG, LFT3, BMP3, PAB #### [facility] [address] [place] [address] Platelets #/vol (Bld) 223 10*3/uL Normal 140-440 [facility] Comment on above: Performed By: #### H EMOG, LFT3, BMP3, PAB #### [facility] [address] [place] [address] RBC #/vol (Bld) 4.95 10*6/uL Normal 3.80-5.20 [facility] Comment on above: Performed By: #### H EMOG, LFT3, BMP3, PAB #### [facility] [address] [place] [address] WBC #/vol (Bld) 6.8 10*3/uL Normal 3.6-10.7 [facility] Comment on above: Performed By: #### H EMOG, LFT3, BMP3, PAB #### [facility] [address] [place] [address] Hepatic Functionon 8 ALP enzyme act/vol 111 U/L Normal 38-126 [facility] Comment on above: Performed By: #### H EMOG, LFT3, BMP3, PAB #### [facility] [address] [place] [address] ALT enzyme act/vol 36 U/L Normal 13-69 [facility] Comment on above: Performed By: #### H EMOG, LFT3, BMP3, PAB #### [facility] [address] [place] [address] AST enzyme act/vol 28 U/L Normal 15-46 [facility] Comment on above: Performed By: #### H EMOG, LFT3, BMP3, PAB #### [facility] [address] [place] [address] Bilirubin mass conc 0.5 mg/dL Normal 0.2-1.3 [facility] Comment on above: Performed By: #### H EMOG, LFT3, BMP3, PAB #### [facility] [address] [place] [address] Bilirubin.direct mass conc 0.0 mg/dL Normal 0.0-0.3 [facility] Comment on above: Performed By: #### H EMOG, LFT3, BMP3, PAB #### [facility] [address] [place] [address] Protein mass conc 7.5 g/dL Normal 6.3-8.2 [facility] Comment on above: Performed By: #### H EMOG, LFT3, BMP3, PAB #### [facility] [address] [place] [address] Albumin mass conc 4.6 g/dL Normal 3.5-5.0 [facility] Comment on above: Performed By: #### H EMOG, LFT3, BMP3, PAB #### [facility] [address] [place] [address] Prealbuminon 07-05-2018 Prealbumin mass conc 27.5 mg/dL Normal 17.6-36.0 [facility] Comment on above: Performed By: #### H EMOG, LFT3, BMP3, PAB #### [facility] [address] [place] [address] Vital Signs Date Time Vital Sign Value Performing Clinician Irene arce 07-27-2025 13:38-0400 Diastolic blood pressure 80 mm[Hg] Kayleen Dwain PA-C Work Phone: [facility] 07-27-2025 13:38-0400 Systolic blood pressure 150 mm[Hg] Kayleen Dwain PA-C Work Phone: [facility] 07-27-2025 13:30-0400 Body height 160 cm Kayleen Dwain PA-C Work Phone: [facility] 07-27-2025 13:30-0400 Body mass index (BMI) [Ratio] 24.23 kg/m2 Kayleen Dwain PA-C Work Phone: [facility] 07-27-2025 13:30-0400 Body weight 62.05 kg Kayleen Dwain PA-C Work Phone: [facility] 07-27-2025 13:30-0400 Heart rate 73 /min Kayleen Dwain PA-C Work Phone: [facility] 07-27-2025 13:30-0400 Respiratory rate 16 /min Kayleen Dwain PA-C Work Phone: [facility] 07-27-2025 13:30-0400 SaO2% (BldA) [Mass fraction] 95 % Kayleen Dwain PA-C Work Phone: [facility] 06-16-2025 16:25-0400 Diastolic blood pressure 64 mm[Hg] Jessica Quezada [employer] - SALES [employer]ICE ENGINEER Work Phone: [facility] 06-16-2025 16:25-0400 Heart rate 60 /min Jessica Grayirrichard [employer] - SALES AND SERVICE ENGINEER Work Phone: [facility] 06-16-2025 16:25-0400 Systolic blood pressure 153 mm[Hg] Jessica Quezada [employer] - SALES AND SERVICE ENGINEER Work Phone: [facility] 06-16-2025 16:00-0400 Body mass index (BMI) [Ratio] 24.34 kg/m2 Jessica Quezada [employer] - SALES AND SERVICE ENGINEER Work Phone: [facility] 06-16-2025 16:00-0400 Body weight 62.32 kg Jessica Quezada [employer] - SALES AND SERVICE ENGINEER Work Phone: [facility] 01-26-2025 15:36-0400 Diastolic blood pressure 70 mm[Hg] Kayleen Dwain PA-C Work Phone: [facility] 01-26-2025 15:36-0400 Systolic blood pressure 140 mm[Hg] Kayleen Dwain PA-C Work Phone: [facility] 01-26-2025 15:32-0400 Body height 160 cm Kayleen Dwain PA-C Work Phone: [facility] 01-26-2025 15:32-0400 Body mass index (BMI) [Ratio] 25.08 kg/m2 Kayleen Dwain PA-C Work Phone: [facility] 01-26-2025 15:32-0400 Body weight 64.23 kg Kayleen Dwain PA-C Work Phone: [facility] 01-26-2025 15:32-0400 Heart rate 65 /min Kayleen Dwain PA-C Work Phone: [facility] 01-26-2025 15:32-0400 Respiratory rate 16 /min Kayleen Dwain PA-C Work Phone: [facility] 01-26-2025 15:32-0400 SaO2% (BldA) [Mass fraction] 96 % Kayleen Dwain PA-C Work Phone: [facility] 12-29-2024 12:55-0500 Diastolic blood pressure 90 mm[Hg] Kayleen Dwain PA-C Work Phone: [facility] 12-29-2024 12:55-0500 Systolic blood pressure 170 mm[Hg] Kayleen Dwain PA-C Work Phone: [facility] 12-29-2024 12:51-0500 Body height 160 cm Kayleen Dwain PA-C Work Phone: [facility] 12-29-2024 12:51-0500 Body mass index (BMI) [Ratio] 24.06 kg/m2 Kayleen Dwain PA-C Work Phone: [facility] 12-29-2024 12:51-0500 Body weight 61.6 kg Kayleen Dwain PA-C Work Phone: [facility] 12-29-2024 12:51-0500 Heart rate 62 /min Kayleen Dwain PA-C Work Phone: [facility] 12-29-2024 12:51-0500 Respiratory rate 16 /min Kayleen Dwain PA-C Work Phone: [facility] 12-29-2024 12:51-0500 SaO2% (BldA) [Mass fraction] 95 % Kayleen Dwain PA-C Work Phone: [facility] 12-23-2024 16:10-0500 Diastolic blood pressure 94 mm[Hg] Jessiac Grayirrichard [employer] - SALES AND SERVICE ENGINEER Work Phone: [facility] 12-23-2024 16:10-0500 Heart rate 74 /min Jessica Grayirk [employer] - SALES AND SERVICE ENGINEER Work Phone: [facility] 12-23-2024 16:10-0500 Systolic blood pressure 179 mm[Hg] Jessica Grayirrichard [employer] - SALES AND SERVICE ENGINEER Work Phone: [facility] 12-23-2024 15:53-0500 Body mass index (BMI) [Ratio] 24.37 kg/m2 Jessica Quezada [employer] - SALES AND SERVICE ENGINEER Work Phone: [facility] 12-23-2024 15:53-0500 Body weight 62.41 kg Jessica Quezada [employer] - SALES AND SERVICE ENGINEER Work Phone: [facility] 07-01-2024 15:18-0400 Diastolic blood pressure 90 mm[Hg] Bhupendra Lamas MD Work Phone: [facility] 07-01-2024 15:18-0400 Systolic blood pressure 160 mm[Hg] Bhupendra Lamas MD Work Phone: [facility] 07-01-2024 14:43-0400 Body height 160 cm Bhupendra Lamas MD Work Phone: [facility] 07-01-2024 14:43-0400 Body mass index (BMI) [Ratio] 22.85 kg/m2 Bhupendra Laams MD Work Phone: [facility] 07-01-2024 14:43-0400 Body weight 58.51 kg Bhupendra Lamas MD Work Phone: [facility] 07-01-2024 14:43-0400 Heart rate 75 /min Bhupendra Lamas MD Work Phone: [facility] 07-01-2024 14:43-0400 Respiratory rate 16 /min Bhupendra Lamas MD Work Phone: [facility] 07-01-2024 14:43-0400 SaO2% (BldA) [Mass fraction] 95 % Bhupendra Lamas MD Work Phone: [facility] 04-08-2024 13:00-0400 Body mass index (BMI) [Ratio] 22.53 kg/m2 Jessica Quezada APRN - SALES [employer] SERVICE [employer]INEER Work Phone: [facility] 04-08-2024 13:00-0400 Body weight 57.7 kg Jessica Quezada APRN - SALES AND SERVICE ENGINEER Work Phone: [facility] 04-08-2024 13:00-0400 Diastolic blood pressure 73 mm[Hg] Jessica Quezada APRN - SALES AND SERVICE ENGINEER Work Phone: [facility] 04-08-2024 13:00-0400 Heart rate 70 /min Jessica Quezada APRN - SALES AND SERVICE ENGINEER Work Phone: [facility] 04-08-2024 13:00-0400 Systolic blood pressure 129 mm[Hg] Jessica Quezada APRN - SALES AND SERVICE ENGINEER Work Phone: [facility] 03-24-2024 13:44-0400 Body temperature 98.3 [degF] Dr. Jelani Miranda Work Phone: [facility] 03-24-2024 13:44-0400 Diastolic blood pressure 69 mm[Hg] Dr. Jelani Miranda Work Phone: [facility] 03-24-2024 13:44-0400 Heart rate 67 /min Dr. Jelani Miranda Work Phone: [facility] 03-24-2024 13:44-0400 Respiratory rate 20 /min Dr. Jelani Miranda Work Phone: [facility] 03-24-2024 13:44-0400 SaO2% (BldA) [Mass fraction] 98 % Dr. Jelani Miranda Work Phone: [facility] 03-24-2024 13:44-0400 Systolic blood pressure 143 mm[Hg] Dr. Jelani Miranda Work Phone: [facility] 03-24-2024 10:18-0400 Body height 162.[address] Jelani Miranda Work Phone: [facility] 03-19-2024 14:45-0400 Body height 160 cm Kayleen Dwain PA-C Work Phone: [facility] 03-19-2024 14:45-0400 Body mass index (BMI) [Ratio] 24.45 kg/m2 Kayleen Dwain PA-C Work Phone: [facility] 03-19-2024 14:45-0400 Body weight 62.6 kg Kayleen Dwain PA-C Work Phone: [facility] 03-19-2024 14:45-0400 Diastolic blood pressure 80 mm[Hg] Kayleen Dwain PA-C Work Phone: [facility] 03-19-2024 14:45-0400 Heart rate 80 /min Kayleen Dwain PA-C Work Phone: [facility] 03-19-2024 14:45-0400 Respiratory rate 16 /min Kayleen Dwain PA-C Work Phone: [facility] 03-19-2024 14:45-0400 Systolic blood pressure 114 mm[Hg] Kayleen Dwain PA-C Work Phone: [facility] 03-14-2024 01:01-0400 Body temperature 96.7 [degF] Dr. Jelani Miranda Work Phone: [facility] 03-14-2024 01:01-0400 Diastolic blood pressure 46 mm[Hg] Dr. Jelani Miranda Work Phone: [facility] 03-14-2024 01:01-0400 Heart rate 64 /min Dr. Jelani Miranda Work Phone: [facility] 03-14-2024 01:01-0400 Respiratory rate 20 /min Dr. Jelani Miranda Work Phone: [facility] 03-14-2024 01:01-0400 SaO2% (BldA) [Mass fraction] 94 % Dr. Jelani Miranda Work Phone: [facility] 03-14-2024 01:01-0400 Systolic blood pressure 100 mm[Hg] Dr. Jelani Miranda Work Phone: [facility] 03-13-2024 22:33-0400 Body mass index (BMI) [Ratio] 23.5 kg/m2 Dr. Jelani Miranda Work Phone: [facility] 03-13-2024 22:33-0400 Body weight 62.[address] Jelani Miranda Work Phone: [facility] 03-13-2024 21:48-0400 Body height 162.[address] Jelani Miranda Work Phone: [facility] 02-02-2024 11:00-0400 Body temperature 98 [degF] Dr. Jelani Miranda Work Phone: [facility] 02-02-2024 11:00-0400 Diastolic blood pressure 68 mm[Hg] Dr. Jelani Miranda Work Phone: [facility] 02-02-2024 11:00-0400 Heart rate 64 /min Dr. Jelani Miranda Work Phone: [facility] 02-02-2024 11:00-0400 Respiratory rate 18 /min Dr. Jelani Miranda Work Phone: 4(890)215-489370 [place] [address] 02-02-2024 11:00-0400 SaO2% (BldA) [Mass fraction] 98 % Dr. Jelani Miranda Work Phone: 1(752)420-170470 [place] [address] 02-02-2024 11:00-0400 Systolic blood pressure 149 mm[Hg] Dr. Jelani Miranda Work Phone: 0(283)706-385070 [place] [address] 01-31-2024 05:34-0400 Inhaled oxygen flow rate 2 L/min Dr. Jelani Miranda Work Phone: 5(175)255-866248 [place] [address] 01-29-2024 09:58-0400 Body mass index (BMI) [Ratio] 24.3 kg/m2 Dr. Jelani Miranda Work Phone: 5(240)132-224570 [place] [address] 01-29-2024 09:58-0400 Body weight 64.[address] Jelani Miranda Work Phone: 1(073)736-969070 [place] [address] 01-28-2024 15:35-0400 Body height 162.[address] Jelani Miranda Work Phone: 9(812)175-922170 [place] [address] 01-17-2024 13:25-0500 Heart rate 77 /min Dr. Jelani Miranda Work Phone: 2(937)746-366070 [place] [address] 01-17-2024 13:25-0500 Respiratory rate 16 /min Dr. Jelani Miranda Work Phone: [facility] 01-17-2024 13:25-0500 SaO2% (BldA) [Mass fraction] 93 % Dr. Jelani Miranda Work Phone: [facility] 01-17-2024 09:15-0500 SaO2% (BldA) [Mass fraction] 95 % Dr. Jelani Miranda Work Phone: [facility] 01-17-2024 09:10-0500 Body temperature 98.6 [degF] Dr. Jelani Miranda Work Phone: [facility] 01-17-2024 09:10-0500 Diastolic blood pressure 68 mm[Hg] Dr. Jelani Miranda Work Phone: [facility] 01-17-2024 09:10-0500 Heart rate 84 /min Dr. Jelani Miranda Work Phone: [facility] 01-17-2024 09:10-0500 Respiratory rate 18 /min Dr. Jelani Miranda Work Phone: [facility] 01-17-2024 09:10-0500 Systolic blood pressure 148 mm[Hg] Dr. Jelani Miranda Work Phone: [facility] 01-17-2024 07:06-0500 Inhaled oxygen flow rate 2 L/min Dr. Jelani Miranda Work Phone: [facility] 01-17-2024 06:00-0500 Body mass index (BMI) [Ratio] 27.4 kg/m2 Dr. Jelani Miranda Work Phone: [facility] 01-17-2024 06:00-0500 Body weight 72.[address] Jelani Miranda Work Phone: [facility] 01-16-2024 11:02-0500 Body height 162.[address] Jelani Miranda Work Phone: [facility] 01-12-2024 15:32-0500 Body temperature 98.2 [degF] [facility] 01-12-2024 15:32-0500 Diastolic blood pressure 70 mm[Hg] [facility] 01-12-2024 15:32-0500 Heart rate 73 /min [facility] 01-12-2024 15:32-0500 Respiratory rate 12 /min [facility] 01-12-2024 15:32-0500 SaO2% (BldA) [Mass fraction] 97 % [facility] 01-12-2024 15:32-0500 Systolic blood pressure 106 mm[Hg] [facility] 01-12-2024 12:07-0500 Body height 162.56 cm [facility] 01-12-2024 12:07-0500 Body mass index (BMI) [Ratio] 25 kg/m2 [facility] 01-12-2024 12:07-0500 Body weight 66 kg [facility] 12-13-2023 14:51-0500 Body height 160 cm Kayleen Dwain PA-C Work Phone: [facility] 12-13-2023 14:51-0500 Body mass index (BMI) [Ratio] 24.52 kg/m2 Kayleen Dwain PA-C Work Phone: [facility] 12-13-2023 14:51-0500 Body weight 62.78 kg Kayleen Dwain PA-C Work Phone: [facility] 11-23-2023 15:15-0500 Body height 160 cm Bhupendra Lamas MD Work Phone: [facility] 11-23-2023 15:15-0500 Body mass index (BMI) [Ratio] 24.52 kg/m2 Bhupendra Lamas MD Work Phone: [facility] 11-23-2023 15:15-0500 Body weight 62.78 kg Bhupendra Lamas MD Work Phone: [facility] 11-23-2023 15:15-0500 Diastolic blood pressure 80 mm[Hg] Bhupendra Lamas MD Work Phone: [facility] 11-23-2023 15:15-0500 Heart rate 68 /min Bhupendra Lamas MD Work Phone: [facility] 11-23-2023 15:15-0500 Respiratory rate 16 /min Bhupendra Lamas MD Work Phone: [facility] 11-23-2023 15:15-0500 SaO2% (BldA) [Mass fraction] 96 % Bhupendra Lamas MD Work Phone: [facility] 11-23-2023 15:15-0500 Systolic blood pressure 150 mm[Hg] Bhupendra Lamas MD Work Phone: [facility] 03-06-2023 11:24-0400 Body temperature 96.6 [degF] Corby Mudrakola DO Work Phone: [facility] 03-06-2023 11:24-0400 Diastolic blood pressure 87 mm[Hg] Corby Sandhu DO Work Phone: [facility] 03-06-2023 11:24-0400 Heart rate 56 /min Corby Sandhu DO Work Phone: [facility] 03-06-2023 11:24-0400 Respiratory rate 16 /min Corby Sandhu DO Work Phone: [facility] 03-06-2023 11:24-0400 SaO2% (BldA) [Mass fraction] 97 % Corby Sandhu DO Work Phone: [facility] 03-06-2023 11:24-0400 Systolic blood pressure 166 mm[Hg] Corby Sandhu DO Work Phone: [facility] 03-06-2023 11:24-0400 Body mass index (BMI) [Ratio] 21.28 kg/m2 Corby Sandhu DO Work Phone: [facility] 03-06-2023 11:24-0400 Body weight 56.25 kg Corby Sandhu DO Work Phone: [facility] 01-16-2023 12:47-0500 Body height 162.6 cm [facility] 01-16-2023 12:47-0500 Body mass index (BMI) [Ratio] 21.28 kg/m2 [facility] 01-16-2023 12:47-0500 Body weight 56.25 kg [facility] 01-16-2023 12:47-0500 Diastolic blood pressure 99 mm[Hg] [facility] 01-16-2023 12:47-0500 Heart rate 75 /min [facility] 01-16-2023 12:47-0500 Systolic blood pressure 171 mm[Hg] [facility] 01-09-2023 14:24-0500 Body height 162.6 cm Kayleen Prakash PA-C Work Phone: [facility] 01-09-2023 14:24-0500 Body mass index (BMI) [Ratio] 21.39 kg/m2 Kayleen Dwain PA-C Work Phone: [facility] 01-09-2023 14:24-0500 Body weight 56.52 kg Kayleen Dwain PA-C Work Phone: [facility] 01-09-2023 14:24-0500 Diastolic blood pressure 68 mm[Hg] Kayleen Dwain PA-C Work Phone: [facility] 01-09-2023 14:24-0500 Heart rate 58 /min Kayleen Dwain PA-C Work Phone: [facility] 01-09-2023 14:24-0500 Respiratory rate 18 /min Kayleen Dwain PA-C Work Phone: [facility] 01-09-2023 14:24-0500 SaO2% (BldA) [Mass fraction] 96 % Kayleen Dwain PA-C Work Phone: [facility] 01-09-2023 14:24-0500 Systolic blood pressure 122 mm[Hg] Kayleen Dwain PA-C Work Phone: [facility] 12-15-2022 13:47-0500 Body mass index (BMI) [Ratio] 20.93 kg/m2 Jessica Quezada APRN - SALES AND SERVICE ENGINEER Work Phone: [facility] 12-15-2022 13:47-0500 Body temperature 96.8 [degF] Jessica Quezada [employer] - SALES AND SERVICE ENGINEER Work Phone: [facility] 12-15-2022 13:47-0500 Body weight 57.06 kg Jessica Quezada [employer] - SALES AND SERVICE ENGINEER Work Phone: [facility] 12-15-2022 13:47-0500 Diastolic blood pressure 85 mm[Hg] Jessica Quezada [employer] - SALES AND SERVICE ENGINEER Work Phone: [facility] 12-15-2022 13:47-0500 Systolic blood pressure 136 mm[Hg] Jessica Quezada APRN - SALES AND SERVICE ENGINEER Work Phone: [facility] 05-13-2022 14:20-0400 Diastolic blood pressure 89 mm[Hg] Candice Dotson APRN [employer] SALES AND SERVICE ENGINEER Work Phone: [facility] 05-13-2022 14:20-0400 Heart rate 65 /min Candice Dotson [employer] SALES AND SERVICE ENGINEER Work Phone: [facility] 05-13-2022 14:20-0400 Respiratory rate 18 /min Candice Dotson [employer] SALES AND SERVICE ENGINEER Work Phone: [facility] 05-13-2022 14:20-0400 SaO2% (BldA) [Mass fraction] 98 % Candice Dotson APRN [employer] SALES AND SERVICE ENGINEER Work Phone: [facility] 05-13-2022 14:20-0400 Systolic blood pressure 193 mm[Hg] Candice Dotson APRN [employer] SALES AND SERVICE ENGINEER Work Phone: [facility] 05-13-2022 12:52-0400 Body temperature 97 [degF] Candice Dotson APRN [employer] SALES AND SERVICE ENGINEER Work Phone: [facility] 11-21-2020 18:30-0500 BP Diastolic 89 mm[Hg] [facility] [place] 11-21-2020 18:30-0500 BP Systolic 151 mm[Hg] [facility] [place] 11-21-2020 18:30-0500 Pulse (Heart Rate) 90 /min [facility] 11-21-2020 18:30-0500 Pulse Oximetry 98 % [facility] [place] 11-21-2020 18:30-0500 Respiratory Rate 18 /min [facility] 11-21-2020 12:10-0500 BMI (Body Mass Index) 19.97 kg/m2 [facility] [place] 11-21-2020 12:10-0500 Body Temperature 96.4 [degF] [facility] [place] 11-21-2020 12:10-0500 [facility] 11-21-2020 12:10-0500 Height 165.1 cm Arnold[facility] [place], [place] Encounters Encounter Date Encounter Type Care Provider Facility Start: 07-27-2025 End: 07-27-2025 Office outpatient visit 25 minutes Kayleen Dwain PA-C Work Phone: [facility] Comment on above: Coronary artery dise ase involving [place] coronary artery of [place] heart without angina pectoris (Primary Dx); Primary hypertension Start: 07-27-2025 End: 07-27-2025 ambulatory KAYLEEN DWAIN [facility] Start: 06-16-2025 End: 06-16-2025 Office outpatient visit 25 minutes Jessica Alston CNP Work Phone: [facility] Comment on above: 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 behavioral disturbance, psychotic disturbance, mood disturbance, or anxiety (HCC) (Primary Dx) Start: 06-16-2025 End: 06-16-2025 ambulatory JESSICA QUEZADA [facility] Start: 04-20-2025 End: 04-20-2025 Telephone encounter Kayleen Dwain PA-C Work Phone: [facility] Start: 04-03-2025 End: 04-03-2025 Subsequent hospital visit by physician Kayleen Dwain PA-C Work Phone: [facility] Comment on above: Primary hypertension Start: 04-03-2025 End: 04-03-2025 ambulatory KAYLEEN DWAIN [facility] Start: 03-24-2025 End: 03-24-2025 Documentation procedure Kayleen Dwain PA-C Work Phone: [facility] Comment on above: Follow-up (hypertens ion) Start: 03-16-2025 End: 03-17-2025 Telephone encounter Bhupendra Lamas MD Work Phone: [facility] Comment on above: Patient Education Start: 02-06-2025 End: 02-06-[address] Edouard Chambers MD Work Phone: [facility] Work Phone: Start: 02-06-2025 End: 02-06-2025 Patient encounter procedure Jonathan Bell -Radiology, [facility] Work Phone: Start: 02-06-2025 End: 02-06-2025 ambulatory Edouard Chambers Facility:[facility] Start: 01-27-2025 End: 01-27-2025 Patient encounter procedure Jonathanarlet Bell DO -[facility] Work Phone: Start: 01-27-2025 End: 01-27-2025 ambulatory Edouard Chambers Facility:[facility] Start: 01-26-2025 End: 01-26-2025 Office outpatient visit 25 minutes Kayleen Dwain PA-C Work Phone: [facility] Comment on above: Coronary artery dise ase involving [place] coronary artery of [place] heart without angina pectoris (Primary Dx); Primary hypertension Start: 01-26-2025 End: 01-26-2025 ambulatory [facility] Start: 12-29-2024 End: 12-29-2024 Office outpatient visit 25 minutes Kayleen Dwain PA-C Work Phone: [facility] Comment on above: Coronary artery dise ase involving [place] coronary artery of [place] heart without angina pectoris (Primary Dx); Primary hypertension Start: 12-29-2024 End: 12-29-2024 ambulatory [facility] [facility] Start: 12-26-2024 ambulatory Edouard Chambers Facility:[facility] Start: 12-23-2024 End: 12-23-2024 Office outpatient visit 40 minutes Jessica Quezada [employer] - SALES AND SERVICE ENGINEER Work Phone: [facility] Comment on above: 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 behavioral disturbance, psychotic disturbance, mood disturbance, or anxiety (HCC) (Primary Dx); Skin lesion of face Start: 12-23-2024 End: 12-23-2024 ambulatory JESSICA QUEZADA [facility] Start: 09-09-2024 End: 09-09-2024 ambulatory Edouard Chambers Facility:[facility] Start: 08-23-2024 ambulatory Valerie Freitas Facility :[facility] Start: 08-23-2024 End: 08-26-2024 Evaluation and management of inpatient Amanda Jeter Facility:[facility] Start: 08-01-2024 End: 08-01-2024 ambulatory No Primary Care Physician Facility:[facility] Start: 07-01-2024 End: 07-01-2024 Office outpatient visit 25 minutes Bhupendra Lamas MD Work Phone: [facility] Comment on above: Essential hypertensi on (Primary Dx); Coronary artery disease involving [place] coronary artery of [place] heart without angina pectoris; Mixed hyperlipidemia Start: 04-08-2024 End: 04-08-2024 Office outpatient visit 40 minutes Jessica Alston CNP Work Phone: [facility] Comment on above: 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 Jelani Miranda Work Phone: [facility]Emergency Department Work Phone: Start: 03-19-2024 End: 03-19-2024 Office outpatient visit 25 minutes Kayleen Prakash PA-C Work Phone: [facility] Comment on above: Coronary artery dise ase involving [place] coronary artery of [place] heart without angina pectoris (Primary Dx) Start: 03-13-2024 End: 03-14-2024 Emergency department patient visit Dr. Jelani Miranda Work Phone: [facility]Emergency Department Work Phone: Start: 02-21-2024 End: 02-21-[address] Jelani Miranda Work Phone: [facility] Work Phone: Start: 02-21-2024 End: 02-21-2024 ambulatory Darcy Guakin Facility:[facility] Start: 01-17-2024 End: 02-02-2024 Evaluation and management of inpatient Dr. Jelani Miranda Work Phone: [facility]-Transitional Care Unit Start: 01-17-2024 Non-patient / Non-visit Dr. Giovanni Miranda Work Phone: [facility] In[facility] Work Phone: Start: 01-16-2024 Non-patient / Non-visit Dr. Giovanni Miranda Work Phone: [facility] Work Phone: Start: 01-15-2024 Non-patient / Non-visit Dr. Giovanni Miranda Work Phone: [facility] Start: 01-15-2024 Non-patient / Non-visit Dr. Giovanni Miranda Work Phone: [facility] Work Phone: Start: 01-14-2024 Non-patient / Non-visit Dr. Giovanni Miranda Work Phone: [facility] Work Phone: Start: 01-13-2024 Non-patient / Non-visit Dr. Giovanni Miranda Work Phone: [facility] Work Phone: Start: 01-12-2024 End: 01-17-2024 Evaluation and management of inpatient [facility]-Medical Surgical 3 Work Phone: Start: 12-13-2023 End: 12-13-2023 Subsequent hospital visit by physician Kayleen Prakash PA-C Work Phone: [facility] Non-Invasive Cardiology Comment on above: Coronary artery dise ase involving [place] coronary artery of [place] heart without angina pectoris; Edema, unspecified type Start: 11-23-2023 End: 11-23-2023 Office outpatient visit 25 minutes Bhupendra Lamas MD Work Phone: [facility] Comment on above: Coronary artery dise ase involving [place] coronary artery of [place] heart without angina pectoris (Primary Dx); Edema, unspecified type; Essential hypertension Start: 11-13-2023 Telephone encounter Kayleen cunha PA-C Work Phone: [facility] Comment on above: Edema, unspecified t ype (Primary Dx); Essential hypertension Start: 11-08-2023 End: 11-08-2023 ambulatory [facility] Work Phone: Start: 11-08-2023 End: 11-08-2023 Departed [facility]erred [facility] Work Phone: Start: 10-25-2023 End: 10-25-2023 [facility] Work Phone: Start: 10-25-2023 End: 10-25-2023 Departed Referred [facility] Work Phone: Start: 10-25-2023 Registered [facility] Work Phone: Start: 10-08-2023 End: 10-08-2023 [facility] Work Phone: Start: 10-08-2023 End: 10-08-2023 Departed [facility]erred [facility] Work Phone: Start: 07-19-2023 Telephone encounter Bhupendra craig MD Work Phone: [facility] Comment on above: Med Management Start: 07-13-2023 Telephone encounter Jessica edmondson [employer] - SALES AND SERVICE ENGINEER Work Phone: [facility] Comment on above: Other ( ) Start: 03-19-2023 End: 03-19-2023 [facility] Work Phone: Start: 03-19-2023 End: 03-19-2023 Departed [facility] Start: 03-14-2023 End: 03-14-2023 ambulatory [facility] Work Phone: Start: 03-14-2023 End: 03-14-2023 Departed [facility] Start: 03-14-2023 Registered [facility] Start: 03-06-2023 End: 03-06-2023 Emergency department patient visit Corby Sandhu DO Work Phone: [facility] Comment on above: Closed nondisplaced fracture of proximal phalanx of lesser toe of left foot, initial encounter (Primary Dx); Fall, initial encounter Start: 01-16-2023 End: 01-16-2023 Subsequent hospital visit by physician Anand Oter[facility] Comment on above: Coronary artery dise ase involving [place] coronary artery of [place] heart without angina pectoris; Other chest pain Start: 01-12-2023 Telephone encounter Kayleen Leo ros PA-C Work Phone: [facility] [facility] Comment on above: Approval for service s Start: 01-09-2023 End: 01-09-2023 Office outpatient visit 25 minutes Kayleen Prakash PA-C Work Phone: [facility] Comment on above: Resistant hypertensi on (Primary Dx); Coronary artery disease involving [place] coronary artery of [place] heart without angina pectoris; Aortic valve sclerosis; Other chest pain Start: 01-09-2023 Telephone encounter Kayleen Leo ros PA-C Work Phone: [facility] Comment on above: Appointment Request Start: 12-25-2022 Refill Jessica KAISER RN - SALES AND SERVICE ENGINEER Work Phone: [facility] Comment on above: Mild late onset Alzh eimer's dementia without behavioral disturbance, psychotic disturbance, mood disturbance, or anxiety (HCC) Start: 12-15-2022 End: 12-15-2022 Office outpatient visit 40 minutes Jessica Quezada APRN - SALES AND SERVICE ENGINEER Work Phone: [facility] Comment on above: Mild late onset Alzh eimer's dementia without behavioral disturbance, psychotic disturbance, mood disturbance, or anxiety (HCC) (Primary Dx); 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 GARFIELD KIDD DO Facility:B Start: 12-04-2022 End: 12-08-[address] GARFIELD KIDD DO [facility] Start: 11-24-2022 End: 11-25-[address] GARFIELD KIDD DO Facility:B Start: 11-24-2022 End: 11-24-[address] GARFIELD KIDD DO [facility] Start: 07-07-2022 End: 07-07-2022 Subsequent hospital visit by physician Jessica Quezada SHEEP BONER Sh[place] Work Phone: [facility] Start: 05-13-2022 End: 05-13-2022 Emergency department patient visit Candice Mauri SHEEP BONER [place] Work Phone: [facility] Comment on above: Closed head injury, initial encounter (Primary Dx); Closed fracture of one rib of right side, initial encounter; Fall, initial encounter Start: 12-27-2021 End: 12-28-2021 ambulatory LIVIER GERARDO SHEEP BONER-SALES AND SERVICE ENGINEER Facility:A Start: 01-07-2021 End: 01-07-2021 Subsequent hospital visit by physician Jessica Quezada Work Phone: [facility] Start: 12-03-2020 End: 12-03-2020 Subsequent hospital visit by physician Kayleen Prakash Work Phone: [facility] EKG Comment on above: Atrial tachycardia ( HCC) Start: 11-21-2020 End: 11-21-2020 Emergency department patient visit Arnoldo Vega Work Phone: [facility] Comment on above: Palpitations (Primar y Dx); Atrial tachycardia, paroxysmal (HCC) Start: 05-14-2020 End: 05-14-2020 Subsequent hospital visit by physician Jessica Quezada Work Phone: [facility] Start: 10-31-2019 End: 10-31-2019 Subsequent hospital visit by physician Jessica Quezada SHEEP BONER - SALES AND SERVICE ENGINEER Work Phone: [facility] Procedures Date Procedure Procedure Detail Performing Clinician Start: 07-27-2025 Ecg routine ecg w/least 12 lds w/i&r Bhupendra Lamas MD Work Phone: Start: 04-03-2025 Dup-scan artl nathaniel abdl/pel/scrot&/rpr orgn com Kayleen Prakash PA-C Work Phone: Start: 02-06-2025 Plain X-ray abdomen Dr. Edouard Chambers MD Work Phone: Start: 07-01-2024 Ecg routine ecg w/least 12 lds w/i&r Bhupendra Lamas MD Work Phone: Start: 03-24-2024 CT of head without contrast Dr. Jelani Pandya t Work Phone: Start: 03-13-2024 Plain chest X-ray Dr. Jelani Miranda Work Phone: Start: 03-13-[address] Jelani Miranda Work Phone: Start: 01-15-2024 Measurement of occult blood in stool specimen using immunoassay Dr. Jelani Miranda Work Phone: Start: 01-15-[address] Jelani Wheeler Work Phone: Start: 01-12-2024 Plain chest X-ray Start: 01-12-2024 Plain x-ray of pelvis and lower extremity Start: 01-12-2024 X-ray of lumbar spine, two or three views Start: 12-13-2023 Echo tthrc r-t 2d w/wom-mode compl spec&colr d Kayleen Dwain PA-C Work Phone: Start: 03-06-2023 [facility] foot complete minimum 3 views Corby Mudrakola DO Work Phone: Start: 01-16-2023 Myocardial spect multiple studies Kayleen Prakash PA-C Work Phone: Start: 01-09-2023 Ecg routine ecg w/least 12 lds trcg only w/o i&r Albert Adams MD Work Phone: Start: 05-13-2022 [facility] ribs uni w/posteroant ch minimum 3 views Da Cooper PA-C Work Phone: Start: 05-13-2022 Ct cervical spine w/o contrast material Da Cooper PA-C Work Phone: Start: 05-13-2022 Ct head/brain w/o contrast material Da Cooper PA-C Work Phone: Start: 12-31-2020 History of placement of stent for coronary artery disease S/P drug eluting coronary stent placement Jessica Alston CNP Work Phone: Start: 11-21-2020 Ecg routine ecg w/least 12 lds w/i&r Arnoldo B Silvia Work Phone: Start: 11-21-2020 Ct angiography chest w/contrast/noncontrast Arnoldo B Silvia Work Phone: Start: 11-21-2020 Assay of troponin quantitative Arnoldo B Silvia Work Phone: Start: 11-21-2020 Basic metabolic panel calcium total Arnoldo B Silvia Work Phone: Start: 11-21-2020 Blood count complete auto&auto difrntl wbc Arnoldo B Silvia Work Phone: Start: 11-21-2020 Radiologic exam chest single view Aronldo B Silvia Work Phone: Start: 11-21-2020 Ecg routine ecg w/least 12 lds w/i&r Arnoldo B Silvia Work Phone: Start: 07-05-2018 History of placement of stent for coronary artery disease S/P drug eluting coronary stent placement Jessica Quezada SHEEP BONER - SALES AND SERVICE ENGINEER Work Phone: Start: 05-24-2018 H/O: artificial joint History of artificial joint Jessica Quezada SHEEP BONER - SALES AND SERVICE ENGINEER Work Phone: Abdominal hysterectomy DR AP KIDD DO Open reduction of fr acture with fixation DR GARFIELD KIDD DO Comment on above: left arm Repair of hip DR GARFIELD WEEKS DO Small intestine excision DR GARFIELD KIDD DO Plan of Treatment Date Care Activity Detail Author Start: 02-05-2026 End: 02-05-2026 Patient encounter procedure 02/05/2026 2:00 PM EDT Office Visit [facility] [address] [phone] Bhupendra Lamas MD [address] [address] [facility] Start: 01-24-2026 Depression Monitoring Depression Monitoring [facility] Start: 07-20-2025 COVID-19 Vaccine ( season) COVID-19 Vaccine ( season) [facility] Start: 07-20-2025 Influenza vaccination Influenza Vaccine (#1) [facility] Start: 07-03-2025 End: 07-03-2025 Patient encounter procedure [facility] Start: 06-30-2025 End: 06-30-2025 Patient encounter procedure 06/30/2025 3:00 PM EDT Office Visit [facility] [address] [place] [address] Jessica Quezada APRN - SALES AND SERVICE ENGINEER [address] [address] [facility] Start: 06-22-2025 Depression Monitoring Depression Monitoring [facility] Start: 04-03-2025 End: 04-03-2025 Patient encounter procedure 04/03/2025 9:20 AM EDT Appointment [facility] Vascular Lab [address] [place] [phone] Kayleen Prakash PA-C [address] [facility] [address] [place] [address] [facility] Lab Start: 01-26-2025 End: 01-26-2025 Patient encounter procedure 01/26/2025 3:30 PM EDT Office Visit [facility] 155 [facility] [address] [place] [address] Kayleen Prakash PA-C [address] [address] [facility] Start: 11-19-2024 Medicare Advantage Annual Wellness Visit Medicare Advantage Annual Wellness Visit [facility] Start: 10-28-2024 End: 10-28-2024 Patient encounter procedure [facility] Start: 10-09-2024 Depression Monitoring Depression Monitoring [facility] Start: 07-20-2024 COVID-19 Vaccine ( season) COVID-19 Vaccine ( season) [facility] Start: 07-20-2024 Influenza vaccination Influenza Vaccine (#1) [facility] Start: 07-01-2024 End: 07-01-2024 Patient encounter procedure 07/01/2024 2:45 PM EDT Office Visit [facility] [address] [phone] Bhupendra Lamas MD [address] [address] [facility] Start: 04-08-2024 End: 04-08-2024 Patient encounter procedure 04/08/2024 12:45 PM EDT Office Visit [facility] [address] [place] [address] Jessica Quezada, SHEEP BONER - SALES AND SERVICE ENGINEER [address] [place] [address] [facility] Start: 03-26-2024 End: 03-19-2025 Basic metabolic 1998 panel - Serum or Plasma Basic metabolic panel Lab Routine Coronary artery disease involving al[place] coronary artery of [place] heart without angina pectoris Expected: 03/26/2024 (Approximate), Expires: 03/19/2025 [facility] Work Phone: Comment on above: Expected: 03/26/2024 (Approximate), Expi res: 03/19/2025 Start: 03-26-2024 End: 03-19-2025 CBC W Auto Differential panel - Blood CBC auto differential Lab Routine Coronary artery disease involving [place] coronary artery of [place] heart without angina pectoris Expected: 03/26/2024 (Approximate), Expires: 03/19/2025 [facility] Comment on above: Expected: 03/26/2024 (Approximate), Expi res: 03/19/2025 Start: 03-24-2024 [facility] Start: 03-14-2024 End: 03-14-2024 [facility] Start: 02-20-2024 End: 02-20-2024 Patient encounter procedure 02/20/2024 3:30 PM EDT Office Visit [facility] [address] [place] [phone] Kayleen Prakash PA-C [facility] [address] [place] [address] [facility] Start: 02-02-2024 Patient discharge [facility] Start: 02-01-2024 Development of care plan [facility] Start: 01-31-2024 Following clinical pathway protocol [facility] Start: 01-31-2024 [facility] Start: 01-30-2024 Following clinical pathway protocol [facility] Start: 01-29-2024 End: 01-29-2024 Following clinical pathway protocol [facility] Start: 01-23-2024 [facility] Start: 01-22-2024 End: 01-22-2024 Patient encounter procedure 01/22/2024 2:45 PM EST Office Visit [facility] [address] [place] [phone] Jessica Quezada, CHUY - SALES AND SERVICE ENGINEER [address] [address] [facility] Start: 01-21-2024 Blood chemistry [facility] Start: 01-20-2024 Blood chemistry [facility] Start: 01-19-2024 Blood chemistry [facility] Start: 01-18-2024 Development of care plan [facility] Start: 01-18-2024 Speech therapy management [facility] Start: 01-18-2024 Developing a treatment plan [facility] Start: 01-17-2024 [facility] Start: 01-17-2024 Speech therapy assessment [facility] Start: 01-17-2024 Following clinical pathway protocol [facility] Start: 01-17-2024 Admission procedure [facility] Start: 01-17-2024 Measuring intake and output [facility] Start: 01-17-2024 Patient referral to dietitian [facility] Start: 01-17-2024 Referral to occupational therapist [facility] Start: 01-17-2024 Referral to service [facility] Start: 01-17-2024 Vital signs measurements [facility] Start: 01-17-2024 End: 01-17-2024 [facility] Start: 01-17-2024 Patient discharge [facility] Start: 01-16-2024 Transfusion of blood product [facility] Start: 01-16-2024 Administration of blood product [facility] Start: 01-16-2024 Leukocyte reduced red blood cells [facility] Start: 01-15-2024 Administration of blood product [facility] Start: 01-15-2024 Application of intermittent pneumatic compression device [facility] Start: 01-15-2024 Referral to gastroenterology service [facility] Start: 01-14-2024 [facility] Start: 01-13-2024 Depression Monitoring Depression Monitoring [facility] Start: 02-25-2024 Depresssion Monitoring Depresssion Monitoring [facility] Start: 01-13-2024 [facility] Start: 01-13-2024 [facility] Start: 01-13-2024 Introduction of urinary catheter [facility] Start: 01-12-2024 Oxygen therapy [facility] Start: 01-12-2024 Following clinical pathway protocol [facility] Start: 01-12-2024 Assessment of risk of venous thromboembolism [facility] Start: 01-12-2024 Insertion of catheter into peripheral vein [facility] Start: 01-12-2024 Measuring intake and output [facility] Start: 01-12-2024 Providing care according to standard [facility] Start: 01-12-2024 Provision of activity privileges [facility] Start: 01-12-2024 Referral to occupational therapist [facility] Start: 01-12-2024 Referral to service [facility] Start: 01-12-2024 [facility] Start: 01-12-2024 Verification routine [facility] Start: 01-12-2024 Admission procedure [facility] Start: 01-12-2024 Hospital admission, emergency, from emergency room, medical nature [facility] Start: 01-12-2024 End: 01-13-2024 [facility] Start: 01-12-2024 Inhalation therapy procedure [facility] Start: 12-13-2023 End: 12-13-2023 Patient encounter procedure 12/13/2023 3:00 PM EST Appointment [facility] Non-Invasive Cardiology [address] [place] [phone] Kayleen Prakash PA-C [address] [place] [address] [facility] Non-Invasive Cardiology Start: 11-23-2023 End: 11-23-2023 Patient encounter procedure 11/23/2023 3:15 PM EST Office Visit [facility] [address] [facility] [address] [place] [phone] Bhupendra Lamas MD [address] [facility] [address] [place] [address] [facility] Start: 11-20-2023 End: 11-13-2024 Basic metabolic 1998 panel - Serum or Plasma Basic metabolic panel Lab Routine Edema, unspecified type Essential hypertension Expected: 11/20/2023 (Approximate), Expires: 11/13/2024 [facility] Work Phone: Comment on above: Expected: 11/20/2023 (Approximate), Expi res: 11/13/2024 Start: 11-19-2023 Medicare Advantage Annual Wellness Visit Medicare Advantage Annual Wellness Visit [facility] Start: 11-07-2023 End: 11-07-2023 Patient encounter procedure 11/07/2023 3:30 PM EST Office Visit [facility] [address] [facility] [address] [place] [address] Kayleen Prakash PA-C [address] [place], [place] [phone] [facility] Start: 07-20-2023 COVID-19 Vaccine ( season) COVID-19 Vaccine ( season) [facility] Start: 07-20-2023 Influenza vaccination Influenza Vaccine (#1) [facility] Start: 05-11-2023 End: 05-11-2023 Patient encounter procedure 05/11/2023 Office Visit Cardiology Bhupendra Lamas MD [address] [facility] [address] [place] [address] [facility] Start: 01-16-2023 Subsequent hospital visit by physician 01/16/2023 Hospital Encounter Cardiology [facility] Non-Invasive Cardiology Start: 01-09-2023 End: 01-09-2024 CBC W Auto Differential panel - Blood CBC auto differential Lab Routine Coronary artery disease involving [place] coronary artery of [place] heart without angina pectoris Resistant hypertension Aortic valve sclerosis Other chest pain Expected: 01/09/2023 (Approximate), Expires: 01/09/2024 [facility] Comment on above: Expected: 01/09/2023 (Approximate), Expi res: 01/09/2024 Start: 01-09-2023 End: 01-09-2024 Comprehensive metabolic 1998 panel - Serum or Plasma Comprehensive metabolic panel Lab Routine Coronary artery disease involving [place] coronary artery of [place] heart without angina pectoris Resistant hypertension Aortic valve sclerosis Other chest pain Expected: 01/09/2023 (Approximate), Expires: 01/09/2024 [facility] Work Phone: Comment on above: Expected: 01/09/2023 (Approximate), Expi res: 01/09/2024 Start: 07-21-2022 COVID-19 Vaccine (4 - Booster for Wendy series) COVID-19 Vaccine (4 - Booster for Wendy series) [facility] Start: 07-20-2022 Influenza vaccination [facility] Start: 03-29-2022 COVID-19 Vaccine (3 - Booster for Wendy series) COVID-19 Vaccine (3 - Booster for Wendy series) [facility] Start: 01-07-2022 Depression Monitoring Depression Monitoring [facility] Start: 11-21-2021 Creatinine measurement Creatinine monitoring [facility] [place] Start: 11-21-2021 Potassium monitoring Potassium monitoring [place], [place] Start: 01-12-2021 End: 01-12-2021 Appointment 01/12/2021 Appointment Echocardiography Albert Adams MD [address] [facility] [place], [place] [phone] [facility] Start: 12-31-2020 End: 12-31-2020 Office Visit 12/31/2020 Office Visit Cardiology Albert Adams MD [address] [facility] [place], [place] [id number] [facility] Start: 12-15-2020 End: 12-15-2020 Office Visit 12/15/2020 Office Visit Geriatric Medicine Mehul Saucedo MD [address] [phone] [facility] Start: 07-20-2020 Influenza vaccination [place], [place] Start: 11-30-2019 Creatinine measurement Creatinine monitoring [facility] [place] Start: 11-30-2019 Potassium monitoring Potassium monitoring [place], [place] Start: 07-20-2019 Influenza vaccination Flu vaccine (#1) [facility] Work Phone: Start: 05-11-2019 Annual Wellness Visit (AWV) Annual Well[facility] (AWV) [facility] Work Phone: Start: 2017 RSV Immunization for Adults (1 - 1-dose 75+ series) RSV Immunization for Adults (1 - 1-dose 75+ series) [facility] Start: 2007 Pneumococcal 65+ years Vaccine (1 of 1 - PPSV23) Pneumococcal 65+ years Vaccine (1 of 1 - PPSV23) [facility] Work Phone: Start: 2002 RSV Immunization aged 60 or older (1 - 1-dose 60+ series) RSV Immunization aged 60 or older (1 - 1-dose 60+ series) [facility] Start: 1997 Screening for osteoporosis DEXA (modify frequency per FRAX score) [facility] Start: 1992 Shingles Vaccine (1 of 2) Shingles Vaccine (1 of 2) [facility] Start: 1992 Zoster Vaccines (1 of 2) Zoster Vaccines (1 of 2) [facility] Start: 1961 DTaP/Tdap/Td vaccine (1 - Tdap) DTaP/Tdap/Td vaccine (1 - Tdap) [facility] Start: 1961 DTaP/Tdap/Td Vaccines (1 - Tdap) DTaP/Tdap/Td Vaccines (1 - Tdap) [facility] Start: 1960 Hepatitis C screening Hepatitis C screen [facility] Start: 1958 COVID-19 Vaccine (1 of 2) COVID-19 Vaccine (1 of 2) [facility] Work Phone: Start: 1952 Lipid panel Lipids [facility] Start: 1942 Annual Wellness Visit (AWV) Annual Wellness Visit (AWV) [facility] Start: 1942 Hepatitis B Vaccines (1 of 3 - 3-dose series) Hepatitis B Vaccines (1 of 3 - 3-dose series) [facility] Start: 1942 Lipid panel Lipid Panel [facility] Start: 1942 Medicare Advantage Annual Wellness Visit (AWV) Medicare Advantage Annual Wellness Visit (AWV) [facility] Start: 1942 Screening for osteoporosis Bone Density Scan [facility] Bacteria identified in Urine by Culture [facility] Bilirubin measuremen t, urine [facility] ECG 12 lead - CLINIC PERFORMED ECG 12 lead - CLINIC PERFORMED CV ECG Routine Coronary artery disease involving [place] coronary artery of [place] heart without angina pectoris 01/09/2023 2:30 PM EST [facility] Work Phone: EKG 12 Lead [employer] [place], [place] End: 12-03-2020 Event Monitor Event Monitor Cardiac Services Routine Atrial tachycardia (HCC) 1 Occurrences starting 12/03/2020 until 12/03/2020 [facility] [place] Comment on above: 1 Occurrences starting 12/03/2020 until 12/03/2020 Hemoglobin [Presence ] in Urine [facility] Measurement of keton es in urine using dipstick [facility] Microscopic urinalysis [facility] Patient Education [facility] Work Phone: Patient referral [facility] Work Phone: pH of Urine [facility] Specific gravity of Urine [facility] Urinalysis, blood, qualitative [facility] Urine dipstick for glucose [facility] Urine dipstick for leukocyte esterase [facility] Urine dipstick for nitrite [facility] Urine dipstick for protein [facility] Urine examination [facility] Urine microscopy: epithelial cells [facility] Urine Microscopy: wh ite cells [facility] Urobilinogen [Presen ce] in Urine [facility] Immunizations Immunization Date Immunization Notes Care Provider Fa roseann 08-25-2024 influenza, high dose seasonal, preservative-free Dr. Edouard Chambers MD Work Phone: [facility] 08-25-2024 influenza virus vacc ine, unspecified formulation Jessica Quezada SHEEP BONER - SALES AND SERVICE ENGINEER Work Phone: [facility] 08-30-2023 influenza, injectabl e, quadrivalent, preservative free Dr. Jelani Miranda Work Phone: [facility] 08-30-2023 influenza virus vacc ine, unspecified formulation Bhupendra Lamas MD Work Phone: [facility] 11-24-2022 COVID-19, mRNA, LNP- S, bivalent booster, PF, 30 mcg/0.3 mL dose; Translations: [[employer] COVID-19 (12y+) Bivalent Booster Vaccine PF] DR GARFIELD KIDD DO [facility] 11-24-2022 influenza, injectabl e, quadrivalent, contains preservative; Translations: [Fluarix PF Quadrivalent ] DR GARFIELD KIDD DO [facility] 11-24-2022 influenza, injectabl e, quadrivalent, preservative free Dr. Edouard Chambers MD Work Phone: [facility] 11-24-2022 influenza virus vacc ine, unspecified formulation Jessica Quezada APRN - SALES AND SERVICE ENGINEER Work Phone: [facility] 05-26-2022 COVID-19, mRNA, LNP- S, PF, 100 mcg or 50 mcg dose; Translations: [Moderna COVID-19 Vaccine] DR GARFIELD KIDD DO [facility] 11-29-2021 COVID-19, mRNA, LNP- S, PF, 100 mcg or 50 mcg dose; Translations: [Moderna COVID-19 Vaccine] DR GARFIELD KIDD DO [facility] 05-27-2021 pneumococcal polysaccharide vaccine, 23 valent; Translations: [Pneumovax 23] DR GARFIELD KIDD DO [facility] 01-27-2021 SARS-CoV-2 (COVID-19 ) Ad26 vaccine, recombinant DR GARFIELD KIDD DO [facility] Comment on above: Result Comment: 2020: [id number] 07-29-2018 influenza virus vacc ine, unspecified formulation DR GARFIELD KIDD DO [facility] 07-29-2018 influenza, injectabl e, quadrivalent, preservative free Jessica Quirk SHEEP BONER - SALES AND SERVICE ENGINEER Work Phone: [facility] 07-29-2018 pneumococcal conjuga te vaccine, [address] GARFIELD KIDD DO [facility] 11-10-2009 novel influenza-H1N1 -09, preservative-free, injectable Jessica Quirk SHEEP BONER - SALES AND SERVICE ENGINEER Work Phone: [facility] Payers Date Payer Category Payer Self-pay [id number] 2024 Medicaid [id number] 2023 Medicare [facility] [id number] 2021 Medicare [id number]. 1.13.680.2. [id number] 2019 Medicaid [id number] 1.13.680.2. [id number] 2019 Private Health Insurance [facility] xxxxxxxxx 2019-Present [address] [place] [id number] xxxxxxxxx [id number]. [id number] 2019 Private Health Insurance [id number]. [id number] 1942 Unknown [id number] 2.16.840.1.425643.3.579.2. 627 1942 Unknown [id number] 2.16.840.1.289102.3.579.2. 627 1942 Unknown [id number] 2.840.1.853473.3.579.2. 627 Medicare MEDICARE PART A B [id number] Medicare [facility] MEDICARE [id number] 400 [id number] Unknown [facility]ARP [facility] ADV [id number] Unknown [id number] 2.840.1.972638.3.579.2. 462 Unknown [id number] 2.840.1.516867.3.579.2. 462 Unknown [id number] 2.16840.1.878659.3.579.2. 462 Unknown [id number] 2.16840.1.752601.3.579.2. 462 Unknown [id number] 2.16840.1.526202.3.579.2. 462 Unknown [id number] 2.16.840.1.750055.3.579.2. 462 Unknown [id number] 2.16840.1.089716.3.579.2. 462 Unknown [id number] 2.16840.1.310523.3.579.2. 462 Unknown [id number] 2.16840.1.019862.3.579.2. 462 Unknown [id number] 2.16.840.1.120830.3.579.2. 462 Unknown [id number] 2.16.840.1.929193.3.579.2. 462 Unknown [id number] 2.16.840.1.312449.3.579.2. 462 Unknown [id number] 2.16.840.1.274651.3.579.2. 462 Unknown [id number] 2.16.840.1.472009.3.579.2. 462 Unknown [id number] 2.16.840.1.935168.3.579.2. 462 Social History Date Type Detail Facility Start: 05-14-2020 End: 12-23-2024 Tobacco smoking status [facility] End: 11-19-2000 History of tobacco use Current smoker [employer] Phone: Start: 05-14-2020 End: 07-27-2025 Alcohol intake Current drinker of alcohol (finding) [employer] Work Phone: Start: 10-18-2018 Alcohol Comment occasionally [employer] Work Phone: Start: 1940 Sex Assigned At Not on file [employer] Work Phone: Start: 05-14-2020 End: 12-23-2024 Tobacco use and exposure [facility] [place] Start: 05-03-2022 End: 07-13-2023 Exposure to SARS-CoV-2 (event) Not sure [facility] [place] [place] Start: 05-13-2022 End: 07-27-2025 Alcohol intake [facility] End: 11-19-2000 History of tobacco use Cigarette Smoker [employer] Work Phone: Sex Assigned At [facility] Start: 09-28-2022 Alcohol Comment occ [facility] Start: 1940 Sex Assigned At Female [facility] Start: 07-13-2023 End: 07-27-2025 Tobacco use panel [facility] Start: 01-12-2024 End: 03-24-2024 Tobacco smoking status [facility] Unknown if ever smoked [facility] Start: 06-19-2022 End: 02-13-2025 Sex Female (finding) [facility] NEGATED: Highlighted row [facility] Goals Date Patient Goal Desired Activity /State Functional Status Date Assessment Result Facility 07-27-2025 Patient Health [facility] ionnaire 2 item (PHQ-2) [Reported] [facility] 02-02-2024 Functional status Bedrest [facility] Work Phone: 01-17-2024 Functional status Ambulates;Chair [facility] Work Phone: Mental Status Date Assessment Result Facility 03-13-2024 Cognitive function Level Of Cons ciousness Awake;Alert;Appropriate;Follow s Commands [facility] Work Phone: 02-02-2024 Cognitive function Voice/Name [facility] Work Phone: 01-17-2024 Cognitive function Voice/Name [facility] Work Phone: Clinical Notes 05-13-2022 to 07-27-2025 Kayleen Prakash PA-C - 07/27/2025 1:30 PM EDTKayleen Prakash PA-C - 07/27/2025 1:30 PM EDTAssessment & Plan Note - Jessica Quezada APRN - [facility] - 06/19/2025 12:55 PM EDTPatient Instructions Note Date & Type Note Facility 07-27-2025 History of Presen t illness Narrative [facility] Cardiology Note DATE of SERVICE:07/27/25 TIME of SERVICE: 1:41 PM Chief Complaint: Chief Complaint Patient presents with Follow-up History of PresentIllness: Erlinda Pathak is a 84 y.o. female known to Dr. Lamas with a history of coronary artery disease, stenting to the LAD in 2017, hypertension, hyperlipidemia, and COPD. She comes in today for routine follow-up. Her blood pressure continues to be high here in the office. In the past when we have requested blood pressure recordings from her facility her blood pressure reading quite labile with systolic blood pressure readings between the 100-165 with average being about 130. She is feeling well. She offers no complaints physically. She specifically denies chest discomfort or shortness of breath. She resides at [facility]. She is accompanied today by her daughter. She is active socializing, doing crafts, bingo, singing, Bible study, and reading. She has been wearing compression socks due to some mild edema. The staff there assists putting them on in the morning, and removing them at night. Past Medical History: Past Medical History: Diagnosis [...] Social History Tobacco Use Smoking status: Former Current packs/day: 0.00 Types: Cigarettes Quit date: 11/19/2000 Years since quittin.7 Smokeless tobacco: Never Vaping Use Vaping status: Never Used Substance Use Topics Alcohol use: Yes Comment: occ Drug use: No Allergies: Allergies Allergen Reactions Penicillins Rash Cephalexin Rash Medications: Current Outpatient Medications: acetaminophen (Tylenol) 500 MG tablet, Take 1,000 mg by mouth 3 times daily., Disp: , Rfl: albuterol (2.5 MG/3ML) 0.083% nebulizer solution, Take by nebulization every 6 hours as needed for wheezing., Disp: , Rfl: alendronate (Fosamax) 70 MG tablet, Take 70 mg by mouth every 7 days., Disp: , Rfl: amLODIPine (Norvasc) 5 MG tablet, Take 1 tablet (5 mg) by mouth daily., Disp: , Rfl: aspirin 81 MG EC tablet, Take 1 tablet by mouth in the morning., Disp: , Rfl: atorvastatin (Lipitor) 20 MG tablet, Take 20 mg by mouth in the morning., Disp: , Rfl: budesonide ER (Ortikos) 6 MG 24 hr capsule, Take 6 mg by mouth daily., Disp: , Rfl: cloNIDine (Catapres) 0.1 MG tablet, Take 0.2 mg by mouth 3 times daily., Disp: , Rfl: Creon [id number] units capsule delayed-release particles capsule, Take 1 capsule by mouth in the morning and 1 capsule at noon and 1 capsule in the evening. Take with meals., Disp: , Rfl: donepezil (Aricept) 10 MG tablet, Take 1 tablet (10 mg) by mouth Nightly., Disp: 90 tablet, Rfl: 3 Oyhzgqjdote-Bizrnxarm-Fpzuol (Trelegy Ellipta) 100-62.5-25 MCG/ACT aerosol powder , Inhale., Disp: , Rfl: Gemtesa 75 MG tablet, Take 1 tablet by mouth daily., Disp: , Rfl: hydrALAZINE (Apresoline) 50 MG tablet, Take 50 mg by mouth 3 times daily., Disp: , Rfl: Lactobacillus (Acidophilus) 100 MG capsule, Take 100 mg by mouth daily. (Patient taking differently: Take 100 mg by mouth 2 times daily.), Disp: , Rfl: losartan (Cozaar) 100 MG tablet, Take 100 mg by mouth daily., Disp: , Rfl: Melatonin 10 MG capsule, Take 10 mg by mouth Nightly., Disp: , Rfl: montelukast (Singulair) 10 MG tablet, Take 10 mg by mouth Nightly., Disp: , Rfl: pantoprazole (ProtoNix) 40 MG EC tablet, Take 40 mg by mouth every morning (before breakfast). Do not crush, chew, or split., Disp: , Rfl: Potassium Chloride 20 MEQ/15ML (10%) solution, Take 20 mEq by mouth 2 times daily. (Patient taking differently: Take 30 mEq by mouth daily.), Disp: , Rfl: primidone (Mysoline) 50 MG tablet, Take 50 mg by mouth daily., Disp: , Rfl: propranolol (Inderal) 80 MG tablet, Take 80 mg by mouth 2 times daily., Disp: , Rfl: venlafaxine XR (Effexor XR) 150 MG 24 hr capsule, Take 150 mg by mouth in the morning., Disp: , Rfl: Review of Systems: Review of Systems Constitutional: Negative for chills and fever. HENT: Negative for nosebleeds. Respiratory: Negative for chest tightness and shortness of breath. Cardiovascular: Negative for chest pain and leg swelling. Gastrointestinal: Negative for abdominal pain, diarrhea and nausea. Genitourinary: Negative for dysuria. Musculoskeletal: Negative for myalgias. Skin: Negative for pallor. Neurological: Negative for dizziness and syncope. Hematological: Does not bruise/bleed easily. Physical Examination: Vitals: Vitals: 07/27/25 1330 07/27/25 1338 BP: (!) 150/80 (!) 150/80 BP Location: Left arm Right arm Patient Position: Sitting Sitting BP Cuff Size: Large adult Adult Pulse: 73 Resp: 16 SpO2: 95% Weight: 136 lb 12.8 oz (62.1 kg) Height: 5' 3" (1.6 m) Body mass index is 24.23 kg/m . Physical Exam Constitutional: General: She is not in acute distress. Appearance: She is not diaphoretic. HENT: Head: Normocephalic. Eyes: General: Right eye: No discharge. Left eye: No discharge. Conjunctiva/sclera: Conjunctivae normal. Cardiovascular: Rate and Rhythm: Normal rate and regular rhythm. Pulmonary: Breath sounds: No wheezing or rales. Abdominal: General: Bowel sounds are normal. Palpations: Abdomen is soft. Musculoskeletal: Right lower leg: No edema. Left lower leg: No edema. Skin: General: Skin is warm and dry. Findings: No erythema or rash. Neurological: Comments: She is alert, but oriented only to person. 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 Psychiatric: Mood and Affect: Mood normal. Laboratory Tests: Lab Results Component Value Date WBC 6.9 03/24/2024 HGB 12.6 03/24/2024 HCT 38.3 03/24/2024 MCV 91.7 03/24/2024 PLT 272 03/24/2024 Lab Results Component Value Date GLUCOSE 79 01/09/2023 CALCIUM 9.9 03/24/2024 NA 140 03/24/2024 K 3.6 03/24/2024 CO2 14 (A) 03/24/2024 CL 115 (A) 03/24/2024 BUN 14 03/24/2024 CREATININE 1.00 03/24/2024 @LASTCMP@ No results found for: "CHLPL", CHOL No results found for: "TRIG" No results found for: "HDL" No results found for: "LDLCALC", LDLDIRECT No components found for: "LVEF", LVEFMODE Assessment and Plan: Hypertension. Blood pressure remains on the higher side. Previously systolic blood pressure readings from the facility varied between the 100-165. At this time I made no changes to her medications. She will continue on amlodipine 5 mg, clonidine 0.2 3 times a day, hydralazine 50 mg 3 times a day, losartan 100 mg daily, and her beta-ashley is propranolol 80 mg twice a day as it also assists with tremor. I will review this with Dr. Lamas. Coronary artery disease with previous stenting to the LAD in 2017. She denies anginal complaints. She will continue aspirin, statin, and beta-ashley. Hyperlipidemia. She will continue statin. Alzheimer's. She is a resident at [facility]. She is oriented to herself only. He can be seen again in 6 months, sooner if problems should arise. I, Kayleen Prakash PA-C, furnish ongoing care related to Erlinda Pathak single, serious and complex condition(s) coronary artery disease. I assume responsibility for the patient's ongoing medical care of this condition. documented in this encounter [facility] 07-27-2025 History of Presen t illness Narrative [facility] Cardiology Note DATE of SERVICE:07/28/25 TIME of SERVICE: 1:06 PM Chief Complaint: Chief Complaint Patient presents with Follow-up History of PresentIllness: Erlinda Pathak is a 84 y.o. female known to Dr. Lamas with a history of coronary artery disease, stenting to the LAD in 2017, hypertension, hyperlipidemia, and COPD. She comes in today for routine follow-up. Her blood pressure continues to be high here in the office. In the past when we have requested blood pressure recordings from her facility her blood pressure reading quite labile with systolic blood pressure readings between the 100-165 with average being about 130. She is feeling well. She offers no complaints physically. She specifically denies chest discomfort or shortness of breath. She resides at [facility]. She is accompanied today by her daughter. She is active socializing, doing crafts, bingo, singing, Bible study, and reading. She has been wearing compression socks due to some mild edema. The staff there assists putting them on in the morning, and removing them at night. Past Medical History: Past Medical History: Diagnosis [...] Social History Tobacco Use Smoking status: Former Current packs/day: 0.00 Types: Cigarettes Quit date: 11/19/2000 Years since quittin.7 Smokeless tobacco: Never Vaping Use Vaping status: Never Used Substance Use Topics Alcohol use: Yes Comment: occ Drug use: No Allergies: Allergies Allergen Reactions Penicillins Rash Cephalexin Rash Medications: Current Outpatient Medications: acetaminophen (Tylenol) 500 MG tablet, Take 1,000 mg by mouth 3 times daily., Disp: , Rfl: albuterol (2.5 MG/3ML) 0.083% nebulizer solution, Take by nebulization every 6 hours as needed for wheezing., Disp: , Rfl: alendronate (Fosamax) 70 MG tablet, Take 70 mg by mouth every 7 days., Disp: , Rfl: amLODIPine (Norvasc) 5 MG tablet, Take 1 tablet (5 mg) by mouth daily., Disp: , Rfl: aspirin 81 MG EC tablet, Take 1 tablet by mouth in the morning., Disp: , Rfl: atorvastatin (Lipitor) 20 MG tablet, Take 20 mg by mouth in the morning., Disp: , Rfl: budesonide ER (Ortikos) 6 MG 24 hr capsule, Take 6 mg by mouth daily., Disp: , Rfl: cloNIDine (Catapres) 0.1 MG tablet, Take 0.2 mg by mouth 3 times daily., Disp: , Rfl: Creon [id number] units capsule delayed-release particles capsule, Take 1 capsule by mouth in the morning and 1 capsule at noon and 1 capsule in the evening. Take with meals., Disp: , Rfl: donepezil (Aricept) 10 MG tablet, Take 1 tablet (10 mg) by mouth Nightly., Disp: 90 tablet, Rfl: 3 Guxttfivrzi-Edaxaqzog-Yaptuo (Trelegy Ellipta) 100-62.5-25 MCG/ACT aerosol powder , Inhale., Disp: , Rfl: Gemtesa 75 MG tablet, Take 1 tablet by mouth daily., Disp: , Rfl: hydrALAZINE (Apresoline) 50 MG tablet, Take 50 mg by mouth 3 times daily., Disp: , Rfl: losartan (Cozaar) 100 MG tablet, Take 100 mg by mouth daily., Disp: , Rfl: Melatonin 10 MG capsule, Take 10 mg by mouth Nightly., Disp: , Rfl: montelukast (Singulair) 10 MG tablet, Take 10 mg by mouth Nightly., Disp: , Rfl: pantoprazole (ProtoNix) 40 MG EC tablet, Take 40 mg by mouth every morning (before breakfast). Do not crush, chew, or split., Disp: , Rfl: Potassium Chloride 20 MEQ/15ML (10%) solution, Take 20 mEq by mouth 2 times daily., Disp: , Rfl: primidone (Mysoline) 50 MG tablet, Take 50 mg by mouth daily., Disp: , Rfl: propranolol (Inderal) 80 MG tablet, Take 80 mg by mouth 2 times daily., Disp: , Rfl: venlafaxine XR (Effexor XR) 150 MG 24 hr capsule, Take 150 mg by mouth in the morning., Disp: , Rfl: Lactobacillus (Acidophilus) 100 MG capsule, Take 100 mg by mouth daily. (Patient taking differently: Take 100 mg by mouth 2 times daily.), Disp: , Rfl: Review of Systems: Review of Systems Constitutional: Negative for chills and fever. HENT: Negative for nosebleeds. Respiratory: Negative for chest tightness and shortness of breath. Cardiovascular: Negative for chest pain and leg swelling. Gastrointestinal: Negative for abdominal pain, diarrhea and nausea. Genitourinary: Negative for dysuria. Musculoskeletal: Negative for myalgias. Skin: Negative for pallor. Neurological: Negative for dizziness and syncope. Hematological: Does not bruise/bleed easily. Physical Examination: Vitals: Vitals: 07/27/25 1330 07/27/25 1338 BP: (!) 150/80 (!) 150/80 BP Location: Left arm Right arm Patient Position: Sitting Sitting BP Cuff Size: Large adult Adult Pulse: 73 Resp: 16 SpO2: 95% Weight: 136 lb 12.8 oz (62.1 kg) Height: 5' 3" (1.6 m) Body mass index is 24.23 kg/m . Physical Exam Constitutional: General: She is not in acute distress. Appearance: She is not diaphoretic. HENT: Head: Normocephalic. Eyes: General: Right eye: No discharge. Left eye: No discharge. Conjunctiva/sclera: Conjunctivae normal. Cardiovascular: Rate and Rhythm: Normal rate and regular rhythm. Pulmonary: Breath sounds: No wheezing or rales. Abdominal: General: Bowel sounds are normal. Palpations: Abdomen is soft. Musculoskeletal: Right lower leg: No edema. Left lower leg: No edema. Skin: General: Skin is warm and dry. Findings: No erythema or rash. Neurological: Comments: She is alert, but oriented only to person. 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 Psychiatric: Mood and Affect: Mood normal. Laboratory Tests: Lab Results Component Value Date WBC 6.9 03/24/2024 HGB 12.6 03/24/2024 HCT 38.3 03/24/2024 MCV 91.7 03/24/2024 PLT 272 03/24/2024 Lab Results Component Value Date GLUCOSE 79 01/09/2023 CALCIUM 9.9 03/24/2024 NA 140 03/24/2024 K 3.6 03/24/2024 CO2 14 (A) 03/24/2024 CL 115 (A) 03/24/2024 BUN 14 03/24/2024 CREATININE 1.00 03/24/2024 @LASTCMP@ No results found for: "CHLPL", CHOL No results found for: "TRIG" No results found for: "HDL" No results found for: "LDLCALC", LDLDIRECT No components found for: "LVEF", LVEFMODE Assessment and Plan: Hypertension. Blood pressure remains on the higher side. Previously systolic blood pressure readings from the facility varied between the 100-165. At this time I made no changes to her medications. She will continue on amlodipine 5 mg, clonidine 0.2 3 times a day, hydralazine 50 mg 3 times a day, losartan 100 mg daily, and her beta-ashley is propranolol 80 mg twice a day as it also assists with tremor. I will review this with Dr. Lamas. Coronary artery disease with previous stenting to the LAD in 2017. She denies anginal complaints. She will continue aspirin, statin, and beta-ashley. Hyperlipidemia. She will continue statin. Alzheimer's. She is a resident at [facility]. She is oriented to herself only. He can be seen again in 6 months, sooner if problems should arise. I, Kayleen Prakash PA-C, furnish ongoing care related to Erlinda Jackie Pathak single, serious and complex condition(s) coronary artery disease. I assume responsibility for the patient's ongoing medical care of this condition. Addendum 07/28/2025 1:[address] Lamas. He is in agreement with current plan for blood pressure control. She is doing well and feeling well. I called and reviewed this again with her daughter Rachel. Rachel is also in agreement. documented in this encounter [facility] 06-19-2025 Evaluation + Plan note Associated Problem(s): 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 behavioral disturbance, psychotic disturbance, mood disturbance, or anxiety (HCC) - No cognitive testing due to h/o poor testing performance. - Remains in moderate stage -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 checkbook was balanced. Did repay a bill. Set up on auto pay. >>10/04/18 family manages >>05/14/20 pt asking for credit card again, dtr redirects - pt can get upset/later apologizes >>01/07/21 pt has debit card for shopping. Sister monitors. >>07/07/22 daughter manages, patient not handling much money, no longer using debit card >>12/15/22 same >>07/13/23 daughter manages, patient still has debit card >>04/08/24 family manages documented in this encounter [facility] 06-16-2025 Instructions Jessica Quezada APRN - MIMI - 06/16/2025 4:00 PM EDT Ms. Pathak was seen today for memory/geriatric evaluation. No more memory testing due to advanced memory loss. Will continue to use day-to-day function to gauge disease progression. Medications: - Continue donepezil 10 mg nightly as is for memory loss. Refills sent to facility pharmacy today. 5 M s - supervision/assistance with medications, medical care, meals, money, mobility (falls). Avoiding medications that cause confusion and falls - Tylenol PM, Benadryl. Avoid smoking or drinking alcohol. General recommendations for safe drinkin drink per day for females, 2 drinks per day for males. Recommend physical, mental, and social activity - Ex [employer] [address] [employer], Silver Sneakers. Recommend routines, schedules, and organization. Recommend getting adequate sleep and eating balanced diet. Continue regular visits with primary care provider to maintain chronic health conditions. Follow-up in 1 year or call for sooner appointment. documented in this encounter [facility] 06-16-2025 Note Ms. Pathak was seen to day for memory/geriatric evaluation. No more memory testing due to advanced memory loss. Will continue to use day-to-day function to gauge disease progression. Medications: - Continue donepezil 10 mg nightly as is for memory loss. Refills sent to facility pharmacy today. 5 M?s - supervision/assistance with medications, medical care, meals, money, mobility (falls). Avoiding medications that cause confusion and falls - Tylenol PM, Benadryl. Avoid smoking or drinking alcohol. General recommendations for safe drinkin drink per day for females, 2 drinks per day for males. Recommend physical, mental, and social activity - Ex [employer] [address], Silver Sneakers. Recommend routines, schedules, and organization. Recommend getting adequate sleep and eating balanced diet. Continue regular visits with primary care provider to maintain chronic health conditions. Follow-up in 1 year or call for sooner appointment. [facility] 04-20-2025 Telephone encounter Note Received weekly blood pressure report. Blood pressures for the most part look like they are averaging in the 130 systolic range. She has a range of 100-165 systolic. Overall are looking much better. I told Ayan she did not need to continue sending weekly blood pressure reports to our office. They do have a medical provider on staff who can manage blood pressure going forward. I told her we are always available with any questions or concerns. [facility] 04-20-2025 Miscellaneous Notes Received weekly blood pressure report. Blood pressures for the most part look like they are averaging in the 130 systolic range. She has a range of 100-165 systolic. Overall are looking much better. I told Ayan she did not need to continue sending weekly blood pressure reports to our office. They do have a medical provider on staff who can manage blood pressure going forward. I told her we are always available with any questions or concerns. documented in this encounter [facility] 03-24-2025 History of Presen t illness Narrative I received a fax from [facility] with Erlinda's blood pressure readings. There has been some improvement since the addition of amlodipine on March 18. Predominantly systolic is averaging around 140-150. She does have some outliers of 180. She is scheduled for the renal ultrasound on the . I did confirm with nurse Michaela that she is on a no added salt diet. She is also not on any NSAIDs. We will await the results of the renal ultrasound. documented in this encounter [facility] 03-18-2025 Note Addended by: KAYLEEN PRAKASH on: 03/18/2025 11:02 AM Modules accepted: Orders [facility] 03-18-2025 Miscellaneous Notes Addended by: KAYLEEN PRAKASH on: 03/18/2025 11:02 AM Modules accepted: Orders I called and spoke with Erlinda's nurse, Mis. I confirmed her present medications, and I am adding amlodipine 5 mg daily. Given her being on multiple medications with still elevated blood pressure, I am going to order a renal artery duplex to evaluate for renal artery stenosis. They will fax us weekly blood pressure numbers. Reviewed BP log from . Many SBP readings >170. According to pt med list, pt on Propranolol 80 mg daily PCPs office called to inform Pts. BP readings are high. Will fax to our office documented in this encounter [facility] 03-18-2025 Telephone encounter Note I called and spoke with Erlinda's nurse, Mis. I confirmed her present medications, and I am adding amlodipine 5 mg daily. Given her being on multiple medications with still elevated blood pressure, I am going to order a renal artery duplex to evaluate for renal artery stenosis. They will fax us weekly blood pressure numbers. [facility] 03-16-2025 Telephone encounter Note Reviewed BP log from . Many SBP readings >170. According to pt med list, pt on Propranolol 80 mg daily [facility] 03-16-2025 Miscellaneous Notes Reviewed BP log from . Many SBP readings >170. According to pt med list, pt on Propranolol 80 mg daily PCPs office called to inform Pts. BP readings are high. Will fax to our office documented in this encounter [facility] 03-16-2025 Telephone encounter Note PCPs office called to inform Pts. BP readings are high. Will fax to our office [facility] 02-07-2025 Radiology Diagnostic study note [facility] Imaging Services [address] [place] [address] Abdomen Single View MR#: [id number] Acct: [id number] Name: ERLINDA PATHAK Rep #: [id number] : 1940 F 84 From: [place] MD PCP: Dr. Edouard Chambers MD Status: REG C LI Study:Abdomen Single View Date of Exam: 02/06/25 Exam# [id number] Ordering Dr: Joaquin Bell DO PROCEDURE: ABDOMEN SINGLE VIEW 02/06/2025 REASON FOR EXAM: CONSTIPATION TECHNIQUE: Single view abdomen. 2 AP views to include the entire abdomen and pelvis COMPARISON: 01/16/2020 FINDINGS: Mainly gaseous prominence of the colon without significant appearing colonic gaseous distention or significant appearing fecal load identified. No gaseous distention of small bowel. Visualized lung bases appear clear. Again multiple calcific densities are seen projecting at the inferior edge of the liver shadow are most consistentwith gallstones again noted. Scoliosis with multilevel spondylosis/discogenic change again noted as well as irregular shapedsclerotic focus at the left sacrum. Status post partially imaged left hip replacement. Right obturator ring fracture deformity appears nonacute, but is apparently new since 2019, clinically correlate. RAD/Abdomen Single View IMPRESSION: Mainly gaseous prominence of the colon without significant appearing colonic gaseous distention or significant appearing fecal load identified. No gaseous distention of small bowel. Findings most consistent with cholelithiasis as above. Scoliosis with multilevel spondylosis as above. Right obturator ring fracture deformity appears nonacute, but is apparently new since 2019 films, clinically correlate. Reading Location: [id number] CC: Dr. Edouard Chambers MD; Jonathan Bell DO ~ Admissions Consultant: Signed [facility] 01-27-2025 Evaluation note Diagnosis Onset Date Resolution Constipation acute January 27, 2025 7:52am Exocrine pancreatic insufficiency inactive January 27, 2025 7:52am [facility] Work Phone: [phone] 412-108503-10-2025 History of Present illness Narrative* Kayleen Prakash PA-C - 01/26/2025 3:30 PM EDT [facility] Cardiology Note DATE of SERVICE:01/26/25 TIME of SERVICE: 3:59 PM Chief Complaint: Chief Complaint Patient presents with Follow-up History of PresentIllness: Erlinda Pathak is a 84 y.o. female known to Dr. Lamas with a history of coronary artery disease, stenting to the LAD in 2016, hypertension, hyperlipidemia, and COPD. Recently she has been seen for elevated blood pressures. On her last visit December 29 we added hydralazine 50 mg tid. They have been giving it to her on a as needed basis at her facility. She is back today for follow-up. From a symptom standpoint she is doing very well. She offers no complaints. Her blood pressure is better controlled. Past Medical History: Past Medical History: Diagnosis Date Alzheimer's disease (HCC) Anemia Atrial fibrillation (HCC) Benign essential tremor 07/05/2018 CAD (coronary artery disease) COPD (chronic obstructive pulmonary disease) (HCC) Frequent UTI Heart murmur, systolic 12/31/2020 HTN (hypertension) Hyperlipidemia Palpitations 12/31/2020 Developed when she moved to a house out of assisted living when she was newly going up/down stairs.This increased activity is likely the basis for [...] Social History Tobacco Use Smoking status: Former Current packs/day: 0.00 Types: Cigarettes Quit date: 11/19/2000 Years since quittin.2 Smokeless tobacco: Never Vaping Use Vaping status: Never Used Substance Use Topics Alcohol use: Yes Comment: occ Drug use: No Allergies: Allergies Allergen Reactions Penicillins Rash Cephalexin Rash Medications: Current Outpatient Medications: acetaminophen (Tylenol) 500 MG tablet, Take 1,000 mg by mouth 3 times daily., Disp: , Rfl: albuterol (2.5 MG/3ML) 0.083% nebulizer solution, Take by nebulization every 6 hours as needed for wheezing., Disp: , Rfl: alendronate (Fosamax) 70 MG tablet, Take 70 mg by mouth every 7 days., Disp: , Rfl: ascorbic acid (Vitamin C) 500 MG tablet, Take 500 mg by mouth 2 times daily., Disp: , Rfl: aspirin 81 MG EC tablet, Take 1 tablet by mouth in the morning., Disp: , Rfl: atorvastatin (Lipitor) 20 MG tablet, Take 20 mg by mouth in the morning., Disp: , Rfl: budesonide ER (Ortikos) 6 MG 24 hr capsule, Take 6 mg by mouth daily., Disp: , Rfl: cholestyramine (Questran) 4 g packet, Take 1 packet by mouth in the morning and 1 packet at noon and 1 packet in the evening. Take with meals., Disp: , Rfl: cloNIDine (Catapres) 0.1 MG tablet, Take 0.2 mg by mouth 3 times daily., Disp: , Rfl: Creon [id number] units capsule delayed-release particles capsule, Take 1 capsule by mouth in the morning and 1 capsule at noon and 1 capsule in the evening. Take with meals., Disp: , Rfl: donepezil (Aricept) 10 MG tablet, Take 1 tablet (10 mg) by mouth Nightly., Disp: 90 tablet, Rfl: 1 Ntzzzqvwqeu-Bmktgxsvy-Qwsxkx (Trelegy Ellipta) 100-62.5-25 MCG/ACT aerosol powder , Inhale., Disp: , Rfl: Gemtesa 75 MG tablet, Take 1 tablet by mouth daily., Disp: , Rfl: hydrALAZINE (Apresoline) 50 MG tablet, Take 50 mg by mouth 3 times daily., Disp: , Rfl: Lactobacillus (Acidophilus) 100 MG capsule, Take 100 mg by mouth daily., Disp: , Rfl: loratadine (Claritin) 10 MG tablet, Take 10 mg by mouth daily., Disp: , Rfl: losartan (Cozaar) 100 MG tablet, Take 100 mg by mouth daily., Disp: , Rfl: Melatonin 10 MG capsule, Take 10 mg by mouth Nightly., Disp: , Rfl: montelukast (Singulair) 10 MG tablet, Take 10 mg by mouth Nightly., Disp: , Rfl: pantoprazole (ProtoNix) 40 MG EC tablet, Take 40 mg by mouth every morning (before breakfast). Do not crush, chew, or split., Disp: , Rfl: Potassium Chloride 20 MEQ/15ML (10%) solution, Take 20 mEq by mouth 2 times daily., Disp: , Rfl: primidone (Mysoline) 50 MG tablet, Take 50 mg by mouth daily., Disp: , Rfl: propranolol (Inderal) 80 MG tablet, Take 80 mg by mouth 2 times daily., Disp: , Rfl: venlafaxine XR (Effexor XR) 150 MG 24 hr capsule, Take 150 mg by mouth in the morning., Disp: , Rfl: clobetasol (Temovate) 0.05 % cream, Apply topically 2 times daily., Disp: , Rfl: Review of Systems: Review of Systems Constitutional: Negative for chills and fever. HENT: Negative for nosebleeds. Respiratory: Negative for chest tightness and shortness of breath. Cardiovascular: Negative for chest pain and leg swelling. Gastrointestinal: Negative for abdominal pain, diarrhea and nausea. Genitourinary: Negative for dysuria. Musculoskeletal: Negative for myalgias. Skin: Negative for pallor. Neurological: Negative for dizziness and syncope. Hematological: Does not bruise/bleed easily. Physical Examination: Vitals: Vitals: 01/26/25 1532 01/26/25 1536 BP: (!) 140/70 (S) (!) 140/70 BP Location: Right arm Right arm Patient Position: Sitting Sitting BP Cuff Size: Adult Adult Pulse: 65 Resp: 16 SpO2: 96% Weight: 141 lb 9.6 oz (64.2 kg) Height: 5' 3" (1.6 m) Body mass index is 25.08 kg/m . Physical Exam Constitutional: General: She is not in acute distress. Appearance: She is not diaphoretic. Comments: Sitting in wheelchair HENT: Head: Normocephalic. Eyes: General: Right eye: No discharge. Left eye: No discharge. Conjunctiva/sclera: Conjunctivae normal. Cardiovascular: Rate and Rhythm: Normal rate and regular rhythm. Pulmonary: Breath sounds: No wheezing or rales. Abdominal: General: Bowel sounds are normal. Palpations: Abdomen is soft. Musculoskeletal: Right lower leg: No edema. Left lower leg: No edema. Skin: General: Skin is warm and dry. Findings: No erythema or rash. Neurological: Mental Status: She is oriented to person, place, and time. Psychiatric: Mood and Affect: Mood normal. Laboratory Tests: Lab Results Component Value Date WBC 6.9 03/24/2024 HGB 12.6 03/24/2024 HCT 38.3 03/24/2024 MCV 91.7 03/24/2024 PLT 272 03/24/2024 Lab Results Component Value Date GLUCOSE 79 01/09/2023 CALCIUM 9.9 03/24/2024 NA 140 03/24/2024 K 3.6 03/24/2024 CO2 14 (A) 03/24/2024 CL 115 (A) 03/24/2024 BUN 14 03/24/2024 CREATININE 1.00 03/24/2024 @LASTCMP@ No results found for: "CHLPL", "CHOL" No results found for: "TRIG" No results found for: "HDL" No results found for: "LDLCALC", "LDLDIRECT" No components found for: "LVEF", "LVEFMODE" Assessment and Plan: Hypertension. Blood pressure is better controlled. She is feeling well. At this time I elected to not make any medication changes. At this time she will continue clonidine 0.1 mg 3 times daily, hydralazine 50 mg 3 times daily, Inderal 80 mg twice daily, and losartan 100 mg daily. Coronary artery disease with previous stenting to the LAD in 2017. She denies chest pain. She will continue beta-ashley, aspirin, and statin. Hyperlipidemia. She will continue statin. Last lipid panel November 05 noted a total cholesterol 113, triglycerides 128, HDL 44, LDL 43 with stable AST and ALT. Alzheimer's. She is a resident at [facility]. She is followed by geriatrics. She will keep her appointment as scheduled with Dr. Lamas July 03. They understand to call soonerwith questions or concerns. documented in this [facility]02-10-2025 History of Present illness Narrative* Kayleen Prakash PA-C - 12/29/2024 1:00 PM EST [facility] Cardiology Note DATE of SERVICE:12/29/24 TIME of SERVICE: 1:28 PM Chief Complaint: Chief Complaint Patient presents with Follow-up History of PresentIllness: Erlinda Pathak is a 84 y.o. female known to Dr. Lamas with a history of coronary artery disease, stenting to the LAD in 2016, hypertension, hyperlipidemia, and COPD. She was last seen in June. At that time her blood pressure was noted to be elevated at 160/90, but it is noted that blood pressure at her facility, [facility] with better control. Recently her blood pressures have been very high. She is being seen to assist with blood pressure management. Symptomatically she is doing well. She denies any complaints of chest discomfort, shortness of breath, palpitations, orthopnea, PND, or edema. She is accompanied by her daughter. Past Medical History: Past Medical History: Diagnosis Date Alzheimer's disease (HCC) Anemia Atrial fibrillation (HCC) Benign essential tremor 07/05/2018 CAD (coronary artery disease) COPD (chronic obstructive pulmonary disease) (HCC) Frequent UTI Heart murmur, systolic 12/31/2020 HTN (hypertension) Hyperlipidemia Palpitations 12/31/2020 Developed when she moved to a house out of assisted living when she was newly going up/down stairs.This increased activity is likely the basis for [...] Social History Tobacco Use Smoking status: Former Current packs/day: 0.00 Types: Cigarettes Quit date: 11/19/2000 Years since quittin.1 Smokeless tobacco: Never Vaping Use Vaping status: Never Used Substance Use Topics Alcohol use: Yes Comment: occ Drug use: No Allergies: Allergies Allergen Reactions Penicillins Rash Cephalexin Rash Medications: Current Outpatient Medications: acetaminophen (Tylenol) 500 MG tablet, Take 1,000 mg by mouth 3 times daily., Disp: , Rfl: alendronate (Fosamax) 70 MG tablet, Take 70 mg by mouth every 7 days., Disp: , Rfl: ascorbic acid (Vitamin C) 500 MG tablet, Take 500 mg by mouth 2 times daily., Disp: , Rfl: aspirin 81 MG EC tablet, Take 1 tablet by mouth in the morning., Disp: , Rfl: atorvastatin (Lipitor) 20 MG tablet, Take 20 mg by mouth in the morning., Disp: , Rfl: budesonide ER (Ortikos) 6 MG 24 hr capsule, Take 6 mg by mouth daily., Disp: , Rfl: cholestyramine (Questran) 4 g packet, Take 1 packet by mouth in the morning and 1 packet at noon and 1 packet in the evening. Take with meals., Disp: , Rfl: cloNIDine (Catapres) 0.1 MG tablet, Take 0.2 mg by mouth 3 times daily., Disp: , Rfl: Creon [id number] units capsule delayed-release particles capsule, Take 1 capsule by mouth in the morning and 1 capsule at noon and 1 capsule in the evening. Take with meals., Disp: , Rfl: donepezil (Aricept) 10 MG tablet, Take 1 tablet (10 mg) by mouth Nightly., Disp: 90 tablet, Rfl: 1 Faermukozyx-Vvpkygrbv-Rczaiq (Trelegy Ellipta) 100-62.5-25 MCG/ACT aerosol powder , Inhale., Disp: , Rfl: Gemtesa 75 MG tablet, Take 1 tablet by mouth daily., Disp: , Rfl: Lactobacillus (Acidophilus) 100 MG capsule, Take 100 mg by mouth daily., Disp: , Rfl: loratadine (Claritin) 10 MG tablet, Take 10 mg by mouth daily., Disp: , Rfl: losartan (Cozaar) 100 MG tablet, Take 100 mg by mouth daily., Disp: , Rfl: Melatonin 10 MG capsule, Take 10 mg by mouth Nightly., Disp: , Rfl: montelukast (Singulair) 10 MG tablet, Take 10 mg by mouth Nightly., Disp: , Rfl: pantoprazole (ProtoNix) 40 MG EC tablet, Take 40 mg by mouth every morning (before breakfast). Do not crush, chew, or split., Disp: , Rfl: Potassium Chloride 20 MEQ/15ML (10%) solution, Take 20 mEq by mouth 2 times daily., Disp: , Rfl: primidone (Mysoline) 50 MG tablet, Take 50 mg by mouth daily., Disp: , Rfl: propranolol (Inderal) 80 MG tablet, Take 80 mg by mouth 2 times daily., Disp: , Rfl: venlafaxine XR (Effexor XR) 150 MG 24 hr capsule, Take 150 mg by mouth in the morning., Disp: , Rfl: clobetasol (Temovate) 0.05 % cream, Apply topically 2 times daily., Disp: , Rfl: hydrALAZINE (Apresoline) 50 MG tablet, Take 50 mg by mouth 3 times daily., Disp: , Rfl: Review of Systems: Review of Systems Constitutional: Negative for chills and fever. HENT: Negative for nosebleeds. Respiratory: Negative for chest tightness and shortness of breath. Cardiovascular: Negative for chest pain and leg swelling. Gastrointestinal: Negative for abdominal pain, diarrhea and nausea. Genitourinary: Negative for dysuria. Musculoskeletal: Negative for myalgias. Skin: Negative for pallor. Neurological: Negative for dizziness and syncope. Hematological: Does not bruise/bleed easily. Physical Examination: Vitals: Vitals: 12/29/24 1251 12/29/24 1255 BP: (!) 180/100 (!) 170/90 BP Location: Left arm Right arm Patient Position: Sitting Sitting BP Cuff Size: Large adult Large adult Pulse: 62 Resp: 16 SpO2: 95% Weight: 135 lb 12.8 oz (61.6 kg) Height: 5' 3" (1.6 m) Body mass index is 24.06 kg/m . Physical Exam Constitutional: General: She is not in acute distress. Appearance: She is not diaphoretic. HENT: Head: Normocephalic. Eyes: General: Right eye: No discharge. Left eye: No discharge. Conjunctiva/sclera: Conjunctivae normal. Cardiovascular: Rate and Rhythm: Normal rate and regular rhythm. Pulmonary: Breath sounds: No wheezing or rales. Abdominal: General: Bowel sounds are normal. Palpations: Abdomen is soft. Musculoskeletal: Right lower leg: No edema. Left lower leg: No edema. Skin: General: Skin is warm and dry. Findings: No erythema or rash. Neurological: Mental Status: She is oriented to person, place, and time. Psychiatric: Mood and Affect: Mood normal. Laboratory Tests: Lab Results Component Value Date WBC 6.9 03/24/2024 HGB 12.6 03/24/2024 HCT 38.3 03/24/2024 MCV 91.7 03/24/2024 PLT 272 03/24/2024 Lab Results Component Value Date GLUCOSE 79 01/09/2023 CALCIUM 9.9 03/24/2024 NA 140 03/24/2024 K 3.6 03/24/2024 CO2 14 (A) 03/24/2024 CL 115 (A) 03/24/2024 BUN 14 03/24/2024 CREATININE 1.00 03/24/2024 @LASTCMP@ No results found for: "CHLPL", "CHOL" No results found for: "TRIG" No results found for: "HDL" No results found for: "LDLCALC", "LDLDIRECT" No components found for: "LVEF", "LVEFMODE" Assessment and Plan: Hypertension. Blood pressure is elevated. In review of medications it appears she is getting clonidine 0.2 mg 3 times a day, losartan 100 mg daily, and propranolol 80 mg twice a day. That clonidine dose is up significantly since her last visit here. They have been giving her hydralazine 10 mg as needed blood pressure greater than 160/80. At this time I am going to go ahead and add hydralazine 50 mg 3 times a day. I did call and speak with Michaela chu CEREAL POPPER taking care of her at [facility]. Hopefully over time we can decrease her clonidine dosing. They will continue to monitor her blood pressure at the facility. Coronary artery disease with previous stenting to the LAD in 2017. She denies chest pain. She will continue aspirin, statin, and beta-ashley. Hyperlipidemia. She we will continue statin. Alzheimer's. She is a resident at [facility]. She is followed by geriatrics. I will see back in the office in 1 month for reassessment. I have asked for her most recent labs from the facility. documented in this [facility]02-04-2025 History of Present illness Narrative* Jessica Quezada APRN - MIMI - 12/23/2024 3:00 PM EST Images from the original note were not included. [facility] [address] [facility] [address] Dept: [phone] Dept Loc: [phone] Visit type: [facility] Follow Up Visit Reason for Visit: Memory Loss Visit Date: 12/26/2024 Assessment and Plan 1. 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 Skin lesion of face - External referral to Dermatology - Cognitive testing was down compared to last testing in 03/2024. - Remains in moderate stage - Continue donepezil 10 mg nightly as currently prescribed for memory loss. Tolerating current doseof medication. Will continue to follow along with medication and adjust PRN. Rx managed by [facility] facility so not filled today. - Continue non-pharmacologic interventions for memory - Has adequate supervision over 5 Ms- family and facility providing - F/u in 6 months for routine visit/memory testing Skin lesions- Abnormal lesions noted to forehead and upper lip. Pictures taken and loaded into media. Lip lesion has been there for at least 1 year. Family noticed it when pt broke her pelvis. Forehead lesion is old but abnormally shaped. Referral to Dermatology placed today. Family will coordinatescheduling. Follow up in about 6 months (around 06/22/2025). Subjective HPI: Erlinda Pathak is a 84 y.o. female who presents to the [facility] for a follow-up visit. The patient is known to me. Established pt, diagnosed with Alzheimer's disease in 2018. Last seen in 03/2024- [place] 7 (MIS 1), CDT 2, PHQ 0, more declines since pt fell and had pelvis fracture in 12/2023, now living in SNF, progressing with PT, continued donepezil with closely watching weight. History obtained from caregiver(s): Pt is here with her dtr Rachel. Memory- Slow progressive decline in short term memory over the past several months since last visitin 03/2024. Reverting more to the past. Thinks she still lives in a house that she sold 30 years ago. Function- Still living at LTC. Seems to be doing better now at LT. Driving- no longer driving. Personal care- not as attentive to doing her hair or makeup.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 Generalized workup was pursued to look for infectious process or electrolyte imbalance. Patient was bolused normal saline 1 L intravenously. EKG was obtained and interpreted by myself independently as normal sinus rhythm at 68 bpm with PVCs no acute ST changes. No STEMI. I reviewed her laboratory work and she has a normal white count of 10.1, hemoglobin normal at 12.8, hematocrit 39.8, platelet count normal at 235. Her potassium is slightly low at3.2 which was replaced orally with 40 mill equivalents. Her daughter states that she supplements potassium. However, they state that she has had diarrhea for 2 months and is being worked up for C. difficile. BUN 25 and creatinine slightly elevated at 1.23. Glucose is appropriately elevated at 110 with a normal anion gap of 8. Alkaline phosphatase is elevated at 190 which I think isnonspecific as her other LFTs are normal. Urinalysis shows rare bacteria and 5-10 WBCs. I do not feel that she has a urinary tract infection that is causing more confusion or that she is septic from it as she is showing no other signs ofSIRS criteria. Urine culture was sent. I discussed this with her daughters, and we will withhold antibiotics until urine cultures have returned. Chest x-ray in 1 view interpreted by myself independently shows no evidence of pneumonia. I reviewed the radiology report which confirms my independent interpretation. At this point in time, I have no metabolic reason for her increased confusion. Upon repeat examination approximately 00 20, she is sleeping comfortably. I feel she can be discharged safely home to follow-up with her primary care provider. Her [facility] is [facility]. Disposition is discharged home in stable condition. History & Record Review Discussion w/independent historian: Patient and Family Lab Data Attestation: I reviewed the patient's lab results. Labs: Laboratory Results - last 24 hr 03/13/24 03/13/24 22:18 23:00 WBC 10.1 RBC 4.41 Hgb 12.8 Hct 39.8 MCV 90.2 MCH 29.0 MCHC 32.2 RDW Std Deviation 47.5 H RDW Coeff of Laura 14.5 Plt Count 235 MPV 8.9 Immature Gran % (Auto) 0.800 Neut % (Auto) 67.6 Lymph % (Auto) 21.1 Dawson % (Auto) 8.5 Eos % (Auto) 1.3 Baso % (Auto) 0.7 Absolute Neuts (auto) 6.8 Absolute Lymphs (auto) 2.13 Nucleated RBC % 0 Sodium 136 Potassium 3.2 L Chloride 107 Carbon Dioxide 21.0 Anion Gap 8 BUN 25 H Creatinine 1.23 H Estim Creat Clear Calc 30.98 Est GFR (MDRD) Af Amer 54 L Est GFR (MDRD) Non-Af 45 L BUN/Creatinine Ratio 20.3 H Glucose 110 H Calcium 9.7 Total Bilirubin 0.40 AST 18 ALT 16 Alkaline Phosphatase 190 H Total Protein 6.7 Albumin 3.5 Globulin 3.2 Albumin/Globulin Ratio 1.1 Urine Color Yellow Urine Clarity Clear Urine pH 6.0 Ur Specific Lucan 1.010 Urine Protein 15 H Urine Glucose (UA) Normal Urine Ketones Negative Urine Occult Blood Negative Urine Nitrite Negative Urine Bilirubin Negative Urine Urobilinogen Normal Ur Leukocyte Esterase 500 H Urine RBC 0 SEEN Urine WBC 5-10 SEEN Ur Squamous Epith Cells 0-5 SEEN Urine Bacteria RARE Hyaline Casts 0-5 SEEN Urine Mucus 0 SEEN Radiography Chest X-Ray - ED: 1 View and Read by ED Physician Diagnostic Testing: Clinical Impression(s) from Imaging Studies Chest X-Ray 03/13/24 23:08 IMPRESSION: No radiographic evidence of acute cardiopulmonary disease. Electronically Signed: Mic Patel MD at 0:16 EDT , Discharge Plan Triage Chief Complaint: General Illness ED Provider: Rg Schmid Dx/Rx/DC Orders Clinical Impression: Generalized weakness, Hypokalemia, Frequent falls, Alzheimer disease Instructions: ED DEMENTIA Alzheimer's, ED Fall with Uncertain Cause, ED Hypokalemia, ED Weakness (Uncertain Cause) Prescriptions: No Action atorvastatin 20 mg tablet 20 mg PO QHS Patient Comments: TAKE 1 TABLET BY MOUTH ONCE DAILY donepezil 10 mg tablet 10 mg PO QHS Patient Comments: TAKE 1 TABLET BY MOUTH NIGHTLY calcium carbonate-vitamin D3 500 mg-15 mcg (600 unit) tablet 1 tab PO BID Patient Comments: TAKE 1 TABLET BY MOUTH TWICE DAILY alendronate 70 mg tablet 70 mg PO QWEEK Patient Comments: TAKE 1 TABLET NEEDED EVERY SUN {Q1W1} venlafaxine 150 mg capsule,extended release 24hr 150 mg PO DAILY Patient Comments: TAKE 1 CAPSULE BY MOUTH EVERY DAY propranolol 80 mg capsule,extended release 24 hr 80 mg PO BID Patient Comments: TAKE 1 CAPSULE BY MOUTH TWICE DAILY HOLD FOR SBP <120 montelukast 10 mg tablet 10 mg PO DAILY Patient Comments: TAKE 1 TABLET BY MOUTH EVERY DAY potassium chloride 20 mEq tablet extended release 20 meq PO DAILY Patient Comments: TAKE 1 TABLET BY MOUTH ONCE DAILY WITH FOOD torsemide 20 mg tablet 20 mg PO DAILY primidone 50 mg tablet 50 mg PO DAILY Trelegy Ellipta 100-62.5-25 mcg blister with device 1 inh inhalation DAILY loratadine [Loradamed] 10 mg tablet 10 mg PO DAILY sucralfate 1 gram Tablet 1 g PO 1HR_ACHS Qty: 90 1RF pantoprazole 40 mg tablet,delayed release (DR/EC) 40 mg PO BID Qty: 60 2RF clonidine HCl 0.1 mg Tablet 0.1 mg PO TID Qty: 0 0RF polysaccharide iron complex [Ferrex 150] 150 mg iron Capsule 150 mg PO BID Qty: 0 0RF acetaminophen 500 mg Tablet 1,000 mg PO Q8 Qty: 0 0RF ascorbic acid (vitamin C) 500 mg Tablet 500 mg PO BIDCM Qty: 0 0RF oxybutynin chloride 5 mg Tablet 10 mg PO QHS Qty: 0 0RF losartan 100 mg Tablet 100 mg PO DAILY Qty: 0 0RF acidophilus-pectin, citrus 25 million cell -100 mg Tablet 1 tab PO BID Qty: 0 0RF melatonin 10 mg Tablet, Sublingual 10 mg PO QHS Qty: 0 0RF Primary Care Provider: Darcy Clifton Referrals: Darcy Clifton MD [Primary Care Provider] - As soon as possible Disposition Disposition: Long-Term Facility Discharge Location: [facility] What to do if you have Problems For any increased pain, shortness of breath, bleeding, nausea or vomiting, chestpain, or any unexpected problems, contact your Primary Care Provider. Call [facility] ([phone]) or report to the closest Emergency Room. Call 911 if necessary. 03/14/245 <Electronically signed by Rg Schmid MD> Cosigner Signature (if applicable): CC: Darcy Clifton MD ~ Signed [facility] Work Phone: 1(528) 352-932303-12-2024 Discharge summary Author Curtis Ye [facility] January 29, 2024 5:46pm Note Date/Time January 29, 2024 5:4 6pm [facility] Medical Records Department [address] [place] [address] Transfer to [facility] MR#: [id number] Acct: [id number] Name: LAWSONERLINDA Jackie Rep #:[id number] : 1940 83 From: Curtis Ye MD PCP: Darcy Clifton MD Status:ADM IN Certification of patient admission REQUIRED AT TIME OF ADMISSION. I CERTIFY THAT POST-HOSPITAL ECF SERVICES ARE REQUIRED TO BE GIVEN ON AN IN-PATIENT BASIS BECAUSE OF THE ABOVE NAMED PATIENT'S NEED FOR SKILLED NURSING CARE ON A CONTINUING BASIS FOR THE CONDITION(S) FOR WHICH HE/SHE WAS RECEIVING IN-PATIENT HOSPITAL SERVICES PRIOR TO HIS/HER TRANSFER TO THE ECF. 01/29/24 1746<Electronically signed by Curtis Ye MD> Diet Diet Order/Speech Therapy: 01/17/24 14:42 Diet: Regular - General Food consistency:: Regular Liquid Consistency:: Regular/Thin Type of Dietary Supplement:: Ensure Clear w/ B&D Diet Comments: ICE CREAM w/ lunch, no eggs/downing/sausage @B, no "fancy" lettuce Routine Orders/Code Status Code Status: DNRCC-A (No intubation.) Therapies Weight Bearing: Weight bearing as tolerated Extremity Affected:: Bilateral Lower Physical Therapy: Eval and Treat Occupational Therapy: Eval and Treat Speech Therapy: Eval and Treat Problem/Diagnosis (1) Debility: Status: Acute Code(s): R53.81 - Other malaise (2) Pelvis fracture, right: Status: Acute Code(s): S32.9XXA - Fracture of unspecified parts of lumbosacral spine and pelvis, initial encounter for closed fracture (3) Gastric ulcer: Status: Acute Code(s): K25.9 - Gastric ulcer, unspecified as acute or chronic, without hemorrhage or perforation (4) Acute blood loss anemia: Status: Acute Code(s): D62 - Acute posthemorrhagic anemia (5) Upper GI bleed: Status: Acute Code(s): K92.2 - Gastrointestinal hemorrhage, unspecified (6) HTN (hypertension): Status: Chronic Code(s): I10 - Essential (primary) hypertension (7) Hyperlipemia: Status: Acute Code(s): E78.5 - Hyperlipidemia, unspecified (8) COPD (chronic obstructive pulmonary disease): Status: Inactive Code(s): J44.9 - Chronic obstructive pulmonary disease, unspecified (9) Depression: Status: Acute Code(s): F32.A - Depression, unspecified (10) Osteoarthritis: Status: Acute Code(s): M19.90 - Unspecified osteoarthritis, unspecified site (11) Osteoporosis: Status: Acute Code(s): M81.0 - Age-related osteoporosis without current pathological fracture (12) Alzheimer disease: Status: Acute Code(s): G30.9 - Alzheimer's disease, unspecified; F02.80 - Dementia in other diseases classified elsewhere, unspecified severity, without behavioral disturbance, psychotic disturbance, mood disturbance, and anxiety (13) Allergic rhinitis: Status: Acute Code(s): J30.9 - Allergic rhinitis, unspecified (14) Overactive bladder: Status: Acute Code(s): N32.81 - Overactive bladder (15) Hypokalemia: Status: Acute Code(s): E87.6 - Hypokalemia (16) Tremor: Status: Acute Code(s): R25.1 - Tremor, unspecified Plan 83 year old female with below past medical history hospitalized for right pelvicfracture, upper gi bleed 2/2 gastric ulcer, complicated by confusion, thrombocytopenia, admitted to TCU with debility, here for rehabilitation, strengthening, prior to discharge home to [facility]. * Debility - PT/OT. * Cognition - ST. * Pain - Tylenol 1000mg q6 prn pain (1-10). * Bowel - senna/colace 1 tablet bid, Magnesium citrate 300ml daily prn. * Adult immunization - Administer pneumonia vaccine, covid vaccine, flu vaccine as appropriate. * DVT prophylaxis - Hold, gi bleed. * Osteoporosis - Alendronate 70mg qweek. * Hyperlipidemia - Atorvastatin 20mg qhs. * Calcium deficiency - Calcium D bid. * Hypertension - Losartan 100mg daily, Clonidine 0.1mg tid. * Alzheimer Disease - Donepezil 10mg qhs. * Iron deficiency anemia - Ferrex 150mg bid, Vitamin C 500mg bid. * COPD - Fluticasone/salmeterol 232-14 1 puff q12, Incruse 1 puff daily. * Edema - Furosemide 40mg daily. * Allergic Rhinitis - Loratadine 10mg daily, Singulair 10mg daily. * Overactive bladder - Oxybutynin 10mg qhs. * Gastric ulcer - Pantoprazole 40mg bid, Sucralfate 1gm bid. * Hypokalemia - KCL 20meq daily. * Tremor - Primidone 50mg daily, Propranolol 80mg bid. 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 Allergies/Procedures Done in Hospital Allergies Penicillins Allergy (Unknown, Verified 01/12/24 12:15) NEEDS FOLLOW-UP Procedures: None Type of Care/Length of Stay Estimated LOS: More Than 30 Days Type of Care Needed: Intermediate Rehab Potential: Fair Prognosis: Fair Additional Orders/Day of Discharge Day of Discharge: 02/02/24 Dietary and Speech Recommendations Dietitian Recommendations/Changes: Will continue liberalized regular diet to encourage improved PO at meals. Will change ensure compact to ensure clear BID w/ breakfast and dinner per nsg request at meals and ice cream w/ lunch as tolerated. Adjust ONS as needed to optimize PO and prevent weight loss. Follow Up Care Please Follow Up With: Jonathan Bell DO When: 2 weeks Discharge Plan Admission Admit Date/Time: 01/17/24 14:15 Primary Reason for Your Visit: Debility. Attending Provider: Curtis Ye Chi Primary Care Provider: Darcy Clifton Instructions Additional Instructions / Restrictions: Discharge 02/02/2024 to SNF, intermediate, part B therapies. Resident has Alzheimer Disease, on treatment with Donepezil 10mg daily. Discharge Orders/Prescriptions Prescriptions: New clonidine HCl 0.1 mg Tablet 0.1 mg PO TID Qty: 0 0RF polysaccharide iron complex [Ferrex 150] 150 mg iron Capsule 150 mg PO BID Qty: 0 0RF acetaminophen 500 mg Tablet 1,000 mg PO Q8 Qty: 0 0RF ascorbic acid (vitamin C) 500 mg Tablet 500 mg PO BIDCM Qty: 0 0RF oxybutynin chloride 5 mg Tablet 10 mg PO QHS Qty: 0 0RF losartan 100 mg Tablet 100 mg PO DAILY Qty: 0 0RF acidophilus-pectin, citrus 25 million cell -100 mg Tablet 1 tab PO BID Qty: 0 0RF melatonin 10 mg Tablet, Sublingual 10 mg PO QHS Qty: 0 0RF Continued atorvastatin 20 mg tablet 20 mg PO QHS Patient Comments: TAKE 1 TABLET BY MOUTH ONCE DAILY donepezil 10 mg tablet 10 mg PO QHS Patient Comments: TAKE 1 TABLET BY MOUTH NIGHTLY calcium carbonate-vitamin D3 500 mg-15 mcg (600 unit) tablet 1 tab PO BID Patient Comments: TAKE 1 TABLET BY MOUTH TWICE DAILY alendronate 70 mg tablet 70 mg PO QWEEK Patient Comments: TAKE 1 TABLET NEEDED EVERY SUN {Q1W1} venlafaxine 150 mg capsule,extended release 24hr 150 mg PO DAILY Patient Comments: TAKE 1 CAPSULE BY MOUTH EVERY DAY propranolol 80 mg capsule,extended release 24 hr 80 mg PO BID Patient Comments: TAKE 1 CAPSULE BY MOUTH TWICE DAILY HOLD FOR SBP <120 montelukast 10 mg tablet 10 mg PO DAILY Patient Comments: TAKE 1 TABLET BY MOUTH EVERY DAY potassium chloride 20 mEq tablet extended release 20 meq PO DAILY Patient Comments: TAKE 1 TABLET BY MOUTH ONCE DAILY WITH FOOD torsemide 20 mg tablet 20 mg PO DAILY primidone 50 mg tablet 50 mg PO DAILY Trelegy Ellipta 100-62.5-25 mcg blister with device 1 inh inhalation DAILY loratadine [Loradamed] 10 mg tablet 10 mg PO DAILY sucralfate 1 gram Tablet 1 g PO 1HR_ACHS Qty: 90 1RF pantoprazole 40 mg tablet,delayed release (DR/EC) 40 mg PO BID Qty: 60 2RF Discontinued aspirin 81 mg tablet,chewable 1 tab PO DAILY Hold Instructions: Resume on 01/24/24. Please hold aspirin for the next seven days due to GI bleed Patient Comments: CHEW AND SWALLOW 1 TABLET BY MOUTH ONCE DAILY clonidine HCl 0.1 mg tablet 0.1 mg PO BID oxybutynin chloride 10 mg tablet extended release 24hr 10 mg PO QHS Patient Comments: TAKE 1 TABLET BY MOUTH EVERY DAY lisinopril 40 mg tablet 40 mg PO DAILY Patient Comments: TAKE 1 TABLET BY MOUTH ONCE DAILY fluticasone furoate-vilanterol [Breo Ellipta] 100-25 mcg/dose blister with device 1 inh INHALATION Q24H Patient Comments: INHALE ONE (1) PUFF BY MOUTH ONCE DAILY alendronate [Fosamax] 70 mg tablet 70 mg PO QWEEK Patient Comments: q sunday ferrous sulfate 325 mg (65 mg iron) tablet 325 mg PO BID Qty: 60 2RF Referrals / Follow Up: Darcy Clifton MD [Primary Care Provider] - Friend,DO Jonathan [Med Staff - Active Staff] - Disposition Disposition (needs filled in before D/C Order can be placed): NonSkilled NH/Intermed Care 01/29/24 6361 <Electronically signed by Curtis Ye MD> Cosigner Signature (if applicable): CC: Darcy Clifton MD ~ [facility] Work Phone: 1(457) 767-537203-12-2024 Discharge summary Author Curtis Ye [facility] January 29, 2024 5:45pm Note Date/Time January 29, 2024 5:4 1pm [facility] Medical Records Department [address] [place] [address] Discharge Summary 01/29/24 1739 MR#: [id number] Acct: [id number] Name: ERLINDA PATHAK Rep #:[id number] : 1940 83 From: Curtis Ye MD PCP: Darcy Clifton MD Status:ADM IN [facility] Providers Date of Admission: 01/17/24 Primary Care Physician: Dr. Darcy Clifton MD Reason For Visit: MOUSTAPHA/ PUBIC FRACTURE Diagnosis Discharge Diagnosis (1) Debility: Status: Acute Code(s): R53.81 - Other malaise (2) Pelvis fracture, right: Status: Acute Code(s): S32.9XXA - Fracture of unspecified parts of lumbosacral spine and pelvis, initial encounter for closed fracture (3) Gastric ulcer: Status: Acute Code(s): K25.9 - Gastric ulcer, unspecified as acute or chronic, without hemorrhage or perforation (4) Acute blood loss anemia: Status: Acute Code(s): D62 - Acute posthemorrhagic anemia (5) Upper GI bleed: Status: Acute Code(s): K92.2 - Gastrointestinal hemorrhage, unspecified (6) HTN (hypertension): Status: Chronic Code(s): I10 - Essential (primary) hypertension (7) Hyperlipemia: Status: Acute Code(s): E78.5 - Hyperlipidemia, unspecified (8) COPD (chronic obstructive pulmonary disease): Status: Inactive Code(s): J44.9 - Chronic obstructive pulmonary disease, unspecified (9) Depression: Status: Acute Code(s): F32.A - Depression, unspecified (10) Osteoarthritis: Status: Acute Code(s): M19.90 - Unspecified osteoarthritis, unspecified site (11) Osteoporosis: Status: Acute Code(s): M81.0 - Age-related osteoporosis without current pathological fracture (12) Alzheimer disease: Status: Acute Code(s): G30.9 - Alzheimer's disease, unspecified; F02.80 - Dementia in other diseases classified elsewhere, unspecified severity, without behavioral disturbance, psychotic disturbance, mood disturbance, and anxiety (13) Allergic rhinitis: Status: Acute Code(s): J30.9 - Allergic rhinitis, unspecified (14) Overactive bladder: Status: Acute Code(s): N32.81 - Overactive bladder (15) Hypokalemia: Status: Acute Code(s): E87.6 - Hypokalemia (16) Tremor: Status: Acute Code(s): R25.1 - Tremor, unspecified Plan 83 year old female with below past medical history hospitalized for right pelvicfracture, upper gi bleed 2/2 gastric ulcer, complicated by confusion, thrombocytopenia, admitted to TCU with debility, here for rehabilitation, strengthening, prior to discharge home to [facility]. * Debility - PT/OT. * Cognition - ST. * Pain - Tylenol 1000mg q6 prn pain (1-10). * Bowel - senna/colace 1 tablet bid, Magnesium citrate 300ml daily prn. * Adult immunization - Administer pneumonia vaccine, covid vaccine, flu vaccine as appropriate. * DVT prophylaxis - Hold, gi bleed. * Osteoporosis - Alendronate 70mg qweek. * Hyperlipidemia - Atorvastatin 20mg qhs. * Calcium deficiency - Calcium D bid. * Hypertension - Losartan 100mg daily, Clonidine 0.1mg tid. * Alzheimer Disease - Donepezil 10mg qhs. * Iron deficiency anemia - Ferrex 150mg bid, Vitamin C 500mg bid. * COPD - Fluticasone/salmeterol 232-14 1 puff q12, Incruse 1 puff daily. * Edema - Furosemide 40mg daily. * Allergic Rhinitis - Loratadine 10mg daily, Singulair 10mg daily. * Overactive bladder - Oxybutynin 10mg qhs. * Gastric ulcer - Pantoprazole 40mg bid, Sucralfate 1gm bid. * Hypokalemia - KCL 20meq daily. * Tremor - Primidone 50mg daily, Propranolol 80mg bid. * Depression - Venlafaxine XR 150mg daily, stable chronic nursing home use, GDR not recommended. Medications at Discharge Home Medications alendronate 70 mg tablet 70 mg PO QWEEK supplement 01/12/24 atorvastatin 20 mg tablet 20 mg PO QHS hld 01/12/24 calcium carbonate 500 mg-vitamin D3 15 mcg (600 unit) tablet 1 tab PO BID calcuim 01/12/24 donepezil 10 mg tablet 10 mg PO QHS dementia 01/12/24 fluticasone fur. 100 mcg-umeclid 62.5 mcg-vilant 25 mcg inhalat.powder (Trelegy Ellipta) 1 inh inhalation DAILY COPD 01/12/24 loratadine 10 mg tablet (Loradamed) 10 mg PO DAILY congestion 01/12/24 montelukast 10 mg tablet 10 mg PO DAILY asthma 01/12/24 potassium chloride 20 mEq tablet,extended release 20 meq PO DAILY supplement 01/12/24 primidone 50 mg tablet 50 mg PO DAILY tremors 01/12/24 propranolol 80 mg capsule,24 hr,extended release 80 mg PO BID htn 01/12/24 torsemide 20 mg tablet 20 mg PO DAILY edema 01/12/24 venlafaxine 150 mg capsule,extended release 24 hr 150 mg PO DAILY depression 01/12/24 pantoprazole 40 mg tablet,delayed release 40 mg PO BID reflux #60 tabs 01/17/24 sucralfate 1 gram tablet 1 g PO 1HR_ACHS prevent ulcers #90 tabs 01/17/24 acetaminophen 500 mg tablet 1,000 mg (2 x 500 mg) PO Q8 #0 tabs 01/29/24 acidophilus 25 million cell-pectin, citrus 100 mg tablet 1 tab PO BID #0 tabs 01/29/24 ascorbic acid (vitamin C) 500 mg tablet 500 mg PO BIDCM #0 tabs 01/29/24 clonidine HCl 0.1 mg tablet 0.1 mg PO TID #0 tabs 01/29/24 losartan 100 mg tablet 100 mg PO DAILY #0 tabs 01/29/24 melatonin 10 mg sublingual tablet 10 mg PO QHS #0 tabs 01/29/24 oxybutynin chloride 5 mg tablet 10 mg (2 x 5 mg) PO QHS #0 tabs 01/29/24 polysaccharide iron complex 150 mg iron capsule (Ferrex) 150 mg PO BID #0 caps 01/29/24 Hospital Course Operations None Procedures None Summary of Care Provided Minutes Spent on Discharge: 35 Hospital Course: 83 year old female with below past medical history hospitalized for right pelvicfracture, upper gi bleed 2/2 gastric ulcer, complicated by confusion, thrombocytopenia, admitted to TCU with debility, here for rehabilitation, strengthening, prior to discharge home to [facility] Discharge 02/02/2024 to SNF, intermediate, part B therapies. Resident has Alzheimer Disease, on treatment with Donepezil 10mg daily. Physical Exam Const alert General Appearance: cooperative HEENT normocephalic Eyes PERRL and EOMs intact bilaterally Neck supple, no JVD and no carotid bruits Resp normal respiratory effort, normal air movement and clear to auscultation bilaterally Cardio regular rate and regular rhythm GI normal to inspection, nondistended, normoactive bowel sounds, non-tender and non-distended Extremity normal capillary refill General Extremity: Negative for edema Skin no rashes or lesions noted General Skin Exam: no breakdown Psych affect normal Appearance: appropriate Weight / BMI Weight Weight: 64.319 kg Body Mass Index (BMI) 24.3 ABG / Lab / Microbiology Data 01/25/24 05:14 01/25/24 05:14 Laboratory: Laboratory Results - last 24 hr 01/29/24 05:25: Iron 44 L D/C Instructions Discharge Diet: No restrictions Discharge Activity: Return to Normal Activity, May Shower and Use Walker Weight Bearing Status: Weight bearing as tolerated Call your doctor if you observe: Fever of 101 or Higher, Inability to urinate, Inability to have a bowel movement, Shortness of breath, Dizziness, Fainting spells, Swelling in the ankles, Chest pain and Uncontrolled pain Additional Instructions: Discharge 02/02/2024 to SNF, intermediate, part B therapies. Resident has Alzheimer Disease, on treatment with Donepezil 10mg daily. Please Follow Up With: Jonathan Bell, When: As scheduled. Meaningful Use Info Meaningful Use Diagnoses (Choose all that apply): None applicable Discharge Plan Admission Admit Date/Time: 01/17/24 14:15 Primary Reason for Your Visit: Debility. Attending Provider: Curtis Ye Chi Primary Care Provider: Darcy Clifton Instructions Additional Instructions / Restrictions: Discharge 02/02/2024 to SNF, intermediate, part B therapies. Resident has Alzheimer Disease, on treatment with Donepezil 10mg daily. Discharge Orders/Prescriptions Prescriptions: New clonidine HCl 0.1 mg Tablet 0.1 mg PO TID Qty: 0 0RF polysaccharide iron complex [Ferrex 150] 150 mg iron Capsule 150 mg PO BID Qty: 0 0RF acetaminophen 500 mg Tablet 1,000 mg PO Q8 Qty: 0 0RF ascorbic acid (vitamin C) 500 mg Tablet 500 mg PO BIDCM Qty: 0 0RF oxybutynin chloride 5 mg Tablet 10 mg PO QHS Qty: 0 0RF losartan 100 mg Tablet 100 mg PO DAILY Qty: 0 0RF acidophilus-pectin, citrus 25 million cell -100 mg Tablet 1 tab PO BID Qty: 0 0RF melatonin 10 mg Tablet, Sublingual 10 mg PO QHS Qty: 0 0RF Continued atorvastatin 20 mg tablet 20 mg PO QHS Patient Comments: TAKE 1 TABLET BY MOUTH ONCE DAILY donepezil 10 mg tablet 10 mg PO QHS Patient Comments: TAKE 1 TABLET BY MOUTH NIGHTLY calcium carbonate-vitamin D3 500 mg-15 mcg (600 unit) tablet 1 tab PO BID Patient Comments: TAKE 1 TABLET BY MOUTH TWICE DAILY alendronate 70 mg tablet 70 mg PO QWEEK Patient Comments: TAKE 1 TABLET NEEDED EVERY SUN {Q1W1} venlafaxine 150 mg capsule,extended release 24hr 150 mg PO DAILY Patient Comments: TAKE 1 CAPSULE BY MOUTH EVERY DAY propranolol 80 mg capsule,extended release 24 hr 80 mg PO BID Patient Comments: TAKE 1 CAPSULE BY MOUTH TWICE DAILY HOLD FOR SBP <120 montelukast 10 mg tablet 10 mg PO DAILY Patient Comments: TAKE 1 TABLET BY MOUTH EVERY DAY potassium chloride 20 mEq tablet extended release 20 meq PO DAILY Patient Comments: TAKE 1 TABLET BY MOUTH ONCE DAILY WITH FOOD torsemide 20 mg tablet 20 mg PO DAILY primidone 50 mg tablet 50 mg PO DAILY Trelegy Ellipta 100-62.5-25 mcg blister with device 1 inh inhalation DAILY loratadine [Loradamed] 10 mg tablet 10 mg PO DAILY sucralfate 1 gram Tablet 1 g PO 1HR_ACHS Qty: 90 1RF pantoprazole 40 mg tablet,delayed release (DR/EC) 40 mg PO BID Qty: 60 2RF Discontinued aspirin 81 mg tablet,chewable 1 tab PO DAILY Hold Instructions: Resume on 01/24/24. Please hold aspirin for the next seven days due to GI bleed Patient Comments: CHEW AND SWALLOW 1 TABLET BY MOUTH ONCE DAILY clonidine HCl 0.1 mg tablet 0.1 mg PO BID oxybutynin chloride 10 mg tablet extended release 24hr 10 mg PO QHS Patient Comments: TAKE 1 TABLET BY MOUTH EVERY DAY lisinopril 40 mg tablet 40 mg PO DAILY Patient Comments: TAKE 1 TABLET BY MOUTH ONCE DAILY fluticasone furoate-vilanterol [Breo Ellipta] 100-25 mcg/dose blister with device 1 inh INHALATION Q24H Patient Comments: INHALE ONE (1) PUFF BY MOUTH ONCE DAILY alendronate [Fosamax] 70 mg tablet 70 mg PO QWEEK Patient Comments: q sunday ferrous sulfate 325 mg (65 mg iron) tablet 325 mg PO BID Qty: 60 2RF Referrals / Follow Up: Darcy Clifton MD [Primary Care Provider] - Friend,DO Jonathan [Med Staff - Active Staff] - Disposition Disposition (needs filled in before D/C Order can be placed): NonSkilled NH/Intermed Care 01/29/24 4404 <Electronically signed by Curtis Ye MD> Cosigner Signature (if applicable): CC: Dr. Curtis Ye MD; Darcy Clifton MD~ Signed [facility] Work Phone: 1(375) 394-492303-01-2024 Progress note Author Meron Robertson [facility] January 18, 2024 12:02pm Note Date/Time January 18, 2024 11:1 9am [facility] Medical Records Department [address] [place] [id number] Progress Note - Pharmacy 01/18/24 1106 MR#: [id number] Acct: [id number] Name: ERLINDA PATHAK Rep #:[id number] : 1940 83 From: Meron Robertson PCP: Darcy Clifton MD Status:ADM IN Location: [facility] TCU RX Drug Regimen Review Subjective/Objective Subjective/Objective: Subjective: 83 YOF admitted to TCU 01/17/24 s/p hospitalization for a fall/ anemia. Patient was worked up while hospitalized for anemia/ GIB. Of note; patient received several units of blood during admission. Admitted to TCU 01/17/24 for rehabilitation and strengthening prior to discharge to an assisted living facility. Objective: Allergies Penicillins Allergy (Unknown, Verified 01/12/24 12:15) NEEDS FOLLOW-UP Current Medications Generic Name Dose Route Start Last Admin Trade Name Freq PRN Reason Stop Dose Admin Acetaminophen 1,000 mg 01/18/24 14:00 Acetaminophen 500 Mg Tablet PO Q8 [facility] Alendronate Sodium 70 mg 01/20/24 06:00 Alendronate Sodium 70 Mg Tablet PO Vu@0600 [facility] Ascorbic Acid 500 mg 01/18/24 08:00 01/18/24 09:28 Ascorbic Acid 500 Mg Tablet PO 500 mg BIDCM MIGUELITO Administration Atorvastatin Calcium 20 mg 01/17/24 22:00 01/17/24 21:54 Atorvastatin Calcium 20 Mg Tablet PO 20 mg QHS MIGUELITO Administration Calcium/Vitamin D 1 tablet 01/17/24 17:00 01/18/24 09:27 Calcium Carb/Vitamin D 1 Tablet Tablet PO 1 tablet BIDCM MIGUELITO Administration Clonidine 0.1 mg 01/17/24 22:00 01/18/24 06:03 Clonidine Hcl 0.1 Mg Tablet PO 0.1 mg TID MIGUELITO Administration Protocol Donepezil HCl 10 mg 01/17/24 22:00 01/17/24 21:53 Donepezil Hcl 10 Mg Tablet PO 10 mg QHS MIGUELITO Administration Furosemide 40 mg 01/18/24 10:00 01/18/24 09:28 Furosemide 40 Mg Tablet PO 40 mg DAILY MIGUELITO Administration Loratadine 10 mg 01/18/24 10:00 01/18/24 09:28 Loratadine 10 Mg Tablet PO 10 mg DAILY MIGUELITO Administration Losartan Potassium 100 mg 01/18/24 10:00 01/18/24 09:29 Losartan Potassium 100 Mg Tablet PO 100 mg DAILY MIGUELITO Administration Protocol Magnesium Citrate 300 ml 01/17/24 20:45 Magnesium Citrate 300 Ml PO DAILY PRN Constipation Montelukast Sodium 10 mg 01/18/24 10:00 01/18/24 09:29 Montelukast 10 Mg Tablet PO 10 mg DAILY MIGUELITO Administration Oxybutynin Chloride 10 mg 01/17/24 22:00 01/17/24 21:53 Oxybutynin 5 Mg Tablet PO 10 mg QHS MIGUELITO Administration Pantoprazole Sodium 40 mg 01/17/24 22:00 01/18/24 09:28 Pantoprazole Sodium 40 Mg Tablet PO 40 mg BID MIGUELITO Administration Polysaccharide Iron Complex 150 mg 01/17/24 22:00 01/18/24 09:28 Iron Polysaccharide Complex 150 Mg Capsule PO 150 mg BID MIGUELITO Administration Potassium Chloride 20 meq 01/18/24 08:00 01/18/24 09:27 Potassium Chloride Oral Tablet 20 Meq PO 20 meq DAILYCM MIGUELITO Administration Primidone 50 mg 01/18/24 10:00 01/18/24 09:29 Primidone 50 Mg Tablet PO 50 mg DAILY MIGUELITO Administration Propranolol HCl 80 mg 01/17/24 22:00 01/18/24 09:28 Propranolol La 80 Mg Capsule PO 80 mg BID [facility] Administration Protocol Fluticasone/Salmeterol 1 puff 01/17/24 22:00 01/18/24 09:30 Fluticasone/Salmeterol 232-14 Inhaler INHALATION 1 puff Q12 MIGUELITO Administration Senna/Docusate Sodium 1 tablet 01/17/24 22:00 01/18/24 09:29 Senna/Docusate Sodium 1 Tablet PO 1 tablet BID [facility] Administration Sodium Chloride 10 - 40 ml 01/17/24 15:48 01/17/24 21:54 0.9% Saline Lock 10 Ml Syringe IV 10 ml UD PRN Administration SALINE FLUSH Sucralfate 1 gm 01/18/24 07:00 01/18/24 06:03 Sucralfate 1 Gm Tablet PO 1 gm BID@0700,1600 [facility] Administration Tramadol HCl 50 mg 01/18/24 07:35 Tramadol 50 Mg Tablet PO Q6H PRN PRN Pain Score 1-10 Tuberculin PPD 0.1 ml 01/25/24 10:00 Tuberculin,Purif.Prot.Deriv. 50 Tu/Ml Vial ID 01/25/24 10:01 X1 ONE Umeclidinium [place] 1 puff 01/18/24 10:00 01/18/24 09:31 Umeclidinium [place] Inhaler INHALATION 1 puff DAILY MIGUELITO Administration Venlafaxine HCl 150 mg 01/18/24 10:00 01/18/24 09:29 Venlafaxine Xr 150 Mg Capsule PO 150 mg DAILY MIGUELITO Administration Problem List (Updated 01/17/24 @ 20:[address] Curtis Ye MD) Tremor (Acute) Hypokalemia (Acute) Overactive bladder (Acute) Allergic rhinitis (Acute) Alzheimer disease (Acute) Osteoporosis (Acute) Osteoarthritis (Acute) Depression (Acute) Hyperlipemia (Acute) HTN (hypertension) (Chronic) Upper GI bleed (Acute) Acute blood loss anemia (Acute) Gastric ulcer (Acute) Pelvis fracture, right (Acute) Debility (Acute) COPD (chronic obstructive pulmonary disease) (Chronic) Vital Signs Temp Pulse Resp BP Pulse Ox O2 Del Method 98.9 F 71 16 156/74 H 99 Room Air 01/17/24 14:34 01/18/24 06:10 01/18/24 06:10 01/18/24 06:09 01/18/24 06:10 01/18/24 06:10 Oxygen Delivery Method Room Air Weight: 68.765 kg Body Mass Index (BMI) 26.0 Sodium 138 mmol/L (136-145) 01/18/24 05:48 Potassium 3.9 mmol/L (3.5-5.1) 01/18/24 05:48 Chloride 107 mmol/L (98-107) 01/18/24 05:48 Carbon Dioxide 30.0 mmol/L (21.0-32.0) 01/18/24 05:48 Anion Gap 1 (5-15) L 01/18/24 05:48 BUN 11 mg/dL (7-18) 01/18/24 05:48 Creatinine 0.55 mg/dL (0.55-1.02) 01/18/24 05:48 Est GFR (MDRD) Af Amer 137 mL/min (>60) 01/18/24 05:48 Est GFR (MDRD) Non-Af 113 mL/min (>60) 01/18/24 05:48 BUN/Creatinine Ratio 20.1 RATIO (10-20) H 01/18/24 05:48 Glucose 98 mg/dL (74-106) 01/18/24 05:48 Assessment/Plan: 1. Pain: Tylenol 1000mg PO Q8h, Tramadol 50mg PO Q6h PRN Pain 1-10. Please continue to monitor for increased/decreased S/S pain, PRN medication usage, renal function (Crcl 52 mL/min on 01/17). - To date, the patient has required zero doses of PRN medication. Patient's pain appears managed at this time. 2. Gastric Ulcer/ Hx GIB: Pantoprazole 40mg PO BID, Sucralfate 1g PO BID. Pleasecontinue to monitor for S/S recurrent GIB, stomach upset/nausea, headache, B12 levels (last 224pg/mL on 02/2023). 3. Iron Deficiency anemia: Ferrex 150mg PO BID, Vitamin C 500mg PO BID. Please continue to monitor for GI upset, iron studies (last completed 01/14 during admission), S/S recurrent GIB. 4. HTN/ HLD/ Edema: Lipitor 20mg PO QHS, Clonidine 0.1mg PO TID, Lasix 40mg PO Daily, Losartan 100mg PO Daily, KCl 20meQ PO Daily. Please continue to monitor BP (range 156-170/74-82), SCr (0.55 on 01/17), potassium (3.9 on 01/17), fluid status, S/S worsening edema, lipid panel annually or sooner if clinically indicated (labs WNL 09/2023). 5. COPD: Incruse 1 puff daily, Airduo 1 puff BID. Please continue to monitor heart rate (range 71-94), S/S SOB/wheezing, S/S thrush. 6. Osteoporosis: Fosamax 70mg PO once weekly, Os-Grant + D 1 tab BID. Please continue to monitor calcium levels (8.6 on 01/17), renal function, regular dental exams annually. Please ensure when Fosamax given, it is taken on an empty stomach first thing in the morning. Make sure patient remains in an upright position after administration. 7. Alzheimer Disease: Aricept 10mg PO QHS. Please continue to monitor for vivid dreams, nausea, headache. 8. Tremor: Primidone 50mg PO Daily, Propranolol 80mg PO BID. Please continue to monitor for dizziness, drowsiness, liver function tests (last completed 10/11, WNL), pulse (range 71-94), dizziness. 9. Overactive Bladder: Oxybutynin 10mg PO QHS. Please continue to monitor for urinary retention, S/S UTI, dizziness, drowsiness, nausea. This is a Beer's Criteria medication which can increase the risk of delirium in patients >65 years of age. Patient has a history of dementia, and is at risk for delirium. Please evaluate use to see if an alternate option would be clinically indicated,thank you. 10. Allergic Rhinitis: Claritin 10mg PO Daily, Singulair 10mg PO Daily. Please continue to monitor for symptom management 11. Bowel: Senna/Docusate 1 tab PO BID, Magnesium Citrate 300mL Daily PRN. Please continue to monitor for increased/decreased constipation and/or diarrhea. - To date, the patient has not had a bowel movement (admitted <24hrs ago). Ifpatient does not have a BM in the next 48hrs, please consider administering PRN medications to facilitate a bowel movement. Assessment/Plan for indications treated with psychotropic medications: 1 . Depression: Effexor XR 150mg PO Daily. Please consider a GDR by 06/2024 if clinically indicated, thank you. Medical chart and medication regimen reviewed. The following medication irregularities or issues were identified: 1. HTN: Clonidine 0.1mg PO TID, Losartan 100mg PO Daily. Patient's BP has been elevated since admission (156/74, 170/50, 167/82). Please consider adding additional BP agent or adjusting dose of current medications if clinically indicated, thank you. 2. Patient on several medications that can affect liver function (Tylenol, primidone). Please consider obtaining LFT labs since it has been > 1 year since last done if clinically indicated, thank you. 3. Overactive Bladder: Oxybutynin 10mg PO QHS. Please continue to monitor for urinary retention, S/S UTI, dizziness, drowsiness, nausea. This is a Beer's Criteria medication which can increase the risk of delirium in patients >65 years of age. Patient has a history of dementia, and is at risk for delirium. Please evaluate use to see if an alternate option would be clinically indicated,thank you. Date Date of Note:: 01/18/24 01/18/24 1202 <Electronically signed by Meron Robertson> eMron Robertson Cosigner Signature (if applicable): CC: ~ Signed [facility] Work Phone: 1(630) 961-339003-01-2024 History and physical note Author Curtis Ye [facility] January 18, 2024 7:36am Note Date/Time January 17, 2024 8:36pm [facility] Medical Records Department [address] [place] [address] History & Physical Exam 01/17/242025 MR#: [id number] Acct: [id number] Name: ERLINDA PATHAK Rep #:[id number] : 1940 83 From: Curtis Ye MD PCP: Darcy Clifton MD Status:ADM IN Location: [address] HPI - General General Date of Admission: 01/17/24 Date of Service: 01/17/24 Chief Complaint: Here for rehabilitation. HPI Narrative 01/12/2024 ERLINDA PATHAK, is a 83 Female who presents to [facility] ED with lower extremity injury. Fell at [facility], tripped, fell, landed on buttocks, back. No head injury, no LOC. Unable to walk, stand 2/2 back, hip pain. X-ray showed right pelvic fracture. 01/12/2024 Admit to [facility]. PT/OT, Tylenol for right pelvic fracture. Gentle IV fluids, Hold Lisinopril, Hold Torsemide for MOUSTAPHA. 01/13/2024 Confused, blood pressure low. PT/OT, right pelvic fracture non-operative. Continue IV fluids for MOUSTAPHA, hypotension. Hemoglobin 11 to 7.6, check stool for blood. 01/14/2024 Hemoglobin 7.7. Check iron profile, if stool positive blood, consult GI. 01/15/2024 Hemoglobin 7, GI consulted. Stop IV fluids, Hold Lisinopril, Hold Torsemide for MOUSTAPHA. Transfuse 1 unit PRBC. 01/15/2024 Dr. Bell EGD oozing gastric ulcers, injected, heater probe. Non-bleeding gastric ulcers biopsied. Pantoprazole 40mg bid x 12 weeks. Sucralfate 1gm bid x 4 weeks. 01/16/2024 IV PPI, Hemoglobin 6.5. Transfuse 2 units PRBC, iron IV iron PO. Low platelets resolved. 01/17/2024 Admit to TCU with debility, here for rehabilitation, strengthening, prior to discharge home to [facility] Medical History (Updated 01/17/24 @ 20:[address] Curtis Ye MD) COPD (chronic obstructive pulmonary disease) Depression HTN (hypertension) Hyperlipemia Osteoarthritis Home Medications alendronate 70 mg tablet 70 mg PO QWEEK supplement 01/12/24 [History Last Taken Unknown] alendronate 70 mg tablet (Fosamax) 70 mg PO QWEEK oa 01/12/24 [History Last Taken Unknown] aspirin 81 mg chewable tablet 1 tab PO DAILY blood thinner 01/12/24 [History Last Taken 01/14/24] atorvastatin 20 mg tablet 20 mg PO QHS hld 01/12/24 [History Last Taken 01/16/24] calcium carbonate 500 mg-vitamin D3 15 mcg (600 unit) tablet 1 tab PO BID calcuim 01/12/24 [History Last Taken 01/17/24] clonidine HCl 0.1 mg tablet 0.1 mg PO BID BP 01/12/24 [History Last Taken 01/17/24] donepezil 10 mg tablet 10 mg PO QHS dementia 01/12/24 [History Last Taken 01/16/24] fluticasone fur. 100 mcg-umeclid 62.5 mcg-vilant 25 mcg inhalat.powder (Trelegy Ellipta) 1 inh inhalation DAILY COPD 01/12/24 [History Last Taken Unknown] fluticasone furoate 100 mcg-vilanterol 25 mcg/dose inhalation powder (Breo Ellipta) 1 inh inhalation Q24H copd 01/12/24 [History Last Taken Unknown] lisinopril 40 mg tablet 40 mg PO DAILY htn 01/12/24 [History Last Taken 01/17/24] loratadine 10 mg tablet (Loradamed) 10 mg PO DAILY congestion 01/12/24 [History Last Taken 01/17/24] montelukast 10 mg tablet 10 mg PO DAILY asthma 01/12/24 [History Last Taken 01/17/24] oxybutynin chloride 10 mg tablet,extended release 24 hr 10 mg PO QHS htn 01/12/24 [History Last Taken 01/16/24] potassium chloride 20 mEq tablet,extended release 20 meq PO DAILY supplement 01/12/24 [History Last Taken Unknown] primidone 50 mg tablet 50 mg PO DAILY tremors 01/12/24 [History Last Taken 01/17/24] propranolol 80 mg capsule,24 hr,extended release 80 mg PO BID htn 01/12/24 [History Last Taken 01/17/24] torsemide 20 mg tablet 20 mg PO DAILY edema 01/12/24 [History Last Taken Unknown] venlafaxine 150 mg capsule,extended release 24 hr 150 mg PO DAILY depression 01/12/24 [History Last Taken 01/17/24] ferrous sulfate 325 mg (65 mg iron) tablet 325 mg PO BID #60 tabs 01/17/24 [Rx Last Taken Unknown] pantoprazole 40 mg tablet,delayed release 40 mg PO BID reflux #60 tabs 01/17/24 [Rx Last Taken Unknown] sucralfate 1 gram tablet 1 g PO 1HR_ACHS prevent ulcers #90 tabs 01/17/24 [Rx Last Taken Unknown] Allergy/AdvReac Type Severity Reaction Status Date / Time Penicillins Allergy Unknown NEEDS Verified 01/12/24 12:15 FOLLOW-UP Surgical History History of bowel resection Social History (Updated 01/17/24 @ 20:[address] Curtis Ye MD) household members: none housing: assisted living facility Smoking Status: Former smoker alcohol intake: never substance use type: does not use ROS Constitutional Constitutional: Denies chills, fever(s) or weight gain ENT HEENT: Denies headache(s), nasal congestion or nasal discharge Cardiovascular Cardiovascular: Denies chest pain or palpitations Respiratory/Chest Respiratory/Chest: Denies cough, excessive phlegm production or shortness of breath with exertion Gastrointestinal Gastrointestinal: Denies abdominal pain, nausea or vomiting Genitourinary Genitourinary: Denies dysuria Musculoskeletal Musculoskeletal: Denies joint pain or joint swelling Integumentary Integumentary: Denies rash or wounds Neurologic Neurologic: Denies focal weakness, numbness or tingling Psychiatric Psychiatric: Denies anxiety, auditory hallucinations, depression, homicidal ideation or suicidal ideation Vital Signs Vital Signs Vital Signs: 01/17/24 14:34 01/17/24 14:34 01/17/24 18:31 Temperature 98.9 F Temperature Source Temporal Pulse Rate 82 94 Pulse Rhythm Regular Pulse Strength Normal (2+) Respiratory Rate 20 H 18 Respiratory Effort Normal Non-Labored Respiratory Depth Normal Respiratory Pattern Normal Blood Pressure 184/86 H 167/82 H Blood Pressure Mean 118 110 Blood Pressure Source Monitor Monitor Blood Pressure Position Semi-Fowlers Sitting Blood Pressure Location Left Arm Left Arm Pulse Ox 94 96 Oxygen Delivery Method Room Air Room Air Weight Weight: 68.765 kg Body Mass Index (BMI) 26.0 Physical Exam Const alert General Appearance: cooperative HEENT normocephalic Eyes PERRL and EOMs intact bilaterally Neck supple, no JVD and no carotid bruits Resp normal respiratory effort, normal air movement and clear to auscultation bilaterally Cardio regular rate and regular rhythm GI normal to inspection, nondistended, normoactive bowel sounds, non-tender and non-distended Extremity normal capillary refill General Extremity: Negative for edema Skin no rashes or lesions noted General Skin Exam: no breakdown Psych affect normal Appearance: appropriate Assessment & Plan Assessment/Plan (1) Debility: (2) Pelvis fracture, right: (3) Gastric ulcer: (4) Acute blood loss anemia: (5) Upper GI bleed: (6) HTN (hypertension): (7) Hyperlipemia: (8) COPD (chronic obstructive pulmonary disease): (9) Depression: (10) Osteoarthritis: (11) Osteoporosis: (12) Alzheimer disease: (13) Allergic rhinitis: (14) Overactive bladder: (15) Hypokalemia: (16) Tremor: PLAN: Plan 83 year old female with below past medical history hospitalized for right pelvicfracture, upper gi bleed 2/2 gastric ulcer, complicated by confusion, thrombocytopenia, admitted to TCU with debility, here for rehabilitation, strengthening, prior to discharge home to [facility]. * Debility - PT/OT. * Cognition - ST. * Pain - Tylenol 1000mg q6 prn pain (1-10). * Bowel - senna/colace 1 tablet bid, Magnesium citrate 300ml daily prn. * Adult immunization - Administer pneumonia vaccine, covid vaccine, flu vaccine as appropriate. * DVT prophylaxis - Hold, gi bleed. * Osteoporosis - Alendronate 70mg qweek. * Hyperlipidemia - Atorvastatin 20mg qhs. * Calcium deficiency - Calcium D bid. * Hypertension - Losartan 100mg daily, Clonidine 0.1mg tid. * Alzheimer Disease - Donepezil 10mg qhs. * Iron deficiency anemia - Ferrex 150mg bid, Vitamin C 500mg bid. * COPD - Fluticasone/salmeterol 232-14 1 puff q12, Incruse 1 puff daily. * Edema - Furosemide 40mg daily. * Allergic Rhinitis - Loratadine 10mg daily, Singulair 10mg daily. * Overactive bladder - Oxybutynin 10mg qhs. * Gastric ulcer - Pantoprazole 40mg bid, Sucralfate 1gm bid. * Hypokalemia - KCL 20meq daily. * Tremor - Primidone 50mg daily, Propranolol 80mg bid. 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 01/17/242043 <Electronically signed by Curtis Ye MD> Cosigner Signature (if applicable): CC: Dr. Curtis Ye MD; Darcy Clifton MD~ Signed ADDENDUM by Dr. Curtis Ye MD on 01/18/24 at 0736 Addendum Pain - Tylenol 1000mg q8, Tramadol 50mg q6 prn pain (1-10). 01/18/24735<Electronically signed by Curtis Ye MD> Cosigner Signature (if applicable): cc: Dr. Curtis Ye MD; Darcy Clifton MD ~* Signed [facility] Work Phone: 1(111) 691-662202-29-2024 Discharge summary Author [facility] January 17, 2024 11:47am Note Date/Time January 17, 2024 11:47am [facility] Medical Records Department [address] [place] [id number] Transfer to [facility] MR#: [id number] Acct: [id number] Name: ERLINDA PATHAK Rep #:[id number] : 1940 83 From: Kristie Lau MD PCP: Darcy Clifton MD Status:ADM IN Certification of patient admission REQUIRED AT TIME OF ADMISSION. I CERTIFY THAT POST-HOSPITAL F SERVICES ARE REQUIRED TO BE GIVEN ON AN IN-PATIENT BASIS BECAUSE OF THE ABOVE NAMED PATIENT'S NEED FOR SKILLED NURSING CARE ON A CONTINUING BASIS FOR THE CONDITION(S) FOR WHICH HE/SHE WAS RECEIVING IN-PATIENT HOSPITAL SERVICES PRIOR TO HIS/HER TRANSFER TO THE [facility]. 01/17/24 1147<Electronically signed by Kristie Lau MD> Diet Diet Order/Speech Therapy: 01/15/24 14:58 Diet: Regular - General Is pt able to select menu?: No Routine Orders/Code Status Enema Type: Fleetz Enema Frequency: Daily PRN Suppository Type: Dulcolax 10mg Suppository Frequency: Daily PRN O2 Frequency: PRN Keep PO Greater than or Equal to (%): 90 Therapies Weight Bearing: Weight bearing as tolerated Physical Therapy: Eval and Treat Occupational Therapy: Eval and Treat Problem/Diagnosis (1) MOUSTAPHA (acute kidney injury): Status: Acute Code(s): N17.9 - Acute kidney failure, unspecified (2) Fall: Status: Acute Code(s): W19.XXXA - Unspecified fall, initial encounter (3) Closed fracture of single pubic ramus of pelvis: Status: Acute Code(s): S32.509A - Unspecified fracture of unspecified pubis, initial encounter for closed fracture Plan #Nondisplaced fracture of the right pubic bone due to mechanical fall. * had mechanical fall and pelvic xray showed fracture of the right pubic bone * PT/OT on board. * will be nonoperative. Fall precautions * #MOUSTAPHA * resolved. * * #Iron deficiency anemia * Hb today 6.5. She was transfused with packed red blood cells yesterday. She did have EGD which showed multiple bleeding ulcers. She is on IV PPI and sucralfate. * Will transfuse with 2 more units of packed red blood cells today. Will start on iron replacement. Will give iron infusion today. * Gastroenterology on board. * * * #Thrombocytopenia: Resolved. Platelets are 186 today. #COPD: not in exacerbation. Breathing treatment with bronchodilators. #Hypotension * resolved. Lisinopril resumed. #Hypertension: Back on her lisinopril and clonidine. * #Hyperlipidemia: on statin #Depression; on venlafaxine #Pulmonary nodule * CXR showed possible 8mm nodule in the right midlung. To have CT on outpatient basis for further evaluation. * DVT prophylaxis: SCDs. # Allergies/Procedures Done in Hospital Allergies Penicillins Allergy (Unknown, Verified 01/12/24 12:15) NEEDS FOLLOW-UP Procedures: EGD Type of Care/Length of Stay Estimated LOS: Convalescent Care Less Than 30 days Type of Care Needed: Skilled Rehab Potential: Fair Prognosis: Fair Additional Orders/Day of Discharge Day of Discharge: 01/17/24 Dietary and Speech Recommendations Dietitian Recommendations/Changes: Continue regular diet as ordered. ONS as needed if PO fails at meals. Discharge Plan Admission Admit Date/Time: 01/12/24 16:23 Primary Reason for Your Visit: MOUSTAPHA, pubic rami fracture, anemia Attending Provider: Kristie Lau Primary Care Provider: Darcy Clifton Consulting Providers: Amanda Jeter Instructions Patient Instructions: Bleeding Peptic Ulcer: Treatment Discharge Orders/Prescriptions Prescriptions: New sucralfate 1 gram Tablet 1 g PO 1HR_ACHS Qty: 90 1RF pantoprazole 40 mg tablet,delayed release (DR/EC) 40 mg PO BID Qty: 60 2RF Continued atorvastatin 20 mg tablet 20 mg PO QHS Patient Comments: TAKE 1 TABLET BY MOUTH ONCE DAILY donepezil 10 mg tablet 10 mg PO QHS Patient Comments: TAKE 1 TABLET BY MOUTH NIGHTLY aspirin 81 mg tablet,chewable 1 tab PO DAILY Patient Comments: CHEW AND SWALLOW 1 TABLET BY MOUTH ONCE DAILY calcium carbonate-vitamin D3 500 mg-15 mcg (600 unit) tablet 1 tab PO BID Patient Comments: TAKE 1 TABLET BY MOUTH TWICE DAILY clonidine HCl 0.1 mg tablet 0.1 mg PO BID oxybutynin chloride 10 mg tablet extended release 24hr 10 mg PO QHS Patient Comments: TAKE 1 TABLET BY MOUTH EVERY DAY alendronate 70 mg tablet 70 mg PO QWEEK Patient Comments: TAKE 1 TABLET NEEDED EVERY SUN {Q1W1} venlafaxine 150 mg capsule,extended release 24hr 150 mg PO DAILY Patient Comments: TAKE 1 CAPSULE BY MOUTH EVERY DAY propranolol 80 mg capsule,extended release 24 hr 80 mg PO BID Patient Comments: TAKE 1 CAPSULE BY MOUTH TWICE DAILY HOLD FOR SBP <120 montelukast 10 mg tablet 10 mg PO DAILY Patient Comments: TAKE 1 TABLET BY MOUTH EVERY DAY lisinopril 40 mg tablet 40 mg PO DAILY Patient Comments: TAKE 1 TABLET BY MOUTH ONCE DAILY fluticasone furoate-vilanterol [Breo Ellipta] 100-25 mcg/dose blister with device 1 inh INHALATION Q24H Patient Comments: INHALE ONE (1) PUFF BY MOUTH ONCE DAILY potassium chloride 20 mEq tablet extended release 20 meq PO DAILY Patient Comments: TAKE 1 TABLET BY MOUTH ONCE DAILY WITH FOOD torsemide 20 mg tablet 20 mg PO DAILY primidone 50 mg tablet 50 mg PO DAILY Trelegy Ellipta 100-62.5-25 mcg blister with device 1 inh inhalation DAILY loratadine [Loradamed] 10 mg tablet 10 mg PO DAILY alendronate [Fosamax] 70 mg tablet 70 mg PO QWEEK Patient Comments: q sunday Referrals / Follow Up: Darcy Clifton MD [Primary Care Provider] - Within 2 Weeks FriendJonathan DO [Med Staff - Active Staff] - Within 2 Weeks Disposition Disposition (needs filled in before D/C Order can be placed): Long-Term Facility 01/17/24 1147 <Electronically signed by Kristie Lau MD> Cosigner Signature (if applicable): CC: Dr. Amanda Jeter MD; Darcy Clifton MD ~ [facility] Work Phone: 1(916) 274-999902-28-2024 Progress note Author [facility] January 16, 2024 3:08pm Note Date/Time January 16, 2024 12:51pm [facility] Medical Records Department [address] [place] [address] Progress Note 01/16/24 1247 MR#: [id number] Acct: [id number] Name: ERLINDA PATHAK Rep #:[id number] : 1940 83 From: Kristie Lau MD PCP: Darcy Clifton MD Status:ADM IN [id number] Subject[facility] Subjective Patient seen and examined. She had no active complaints today. She denies any dark stools or any form blood per rectum or any coffee-ground emesis. She did have EGD yesterday which showed multiple bleeding ulcers. She is currently on IV PPI. Hemoglobin today is 6.5. Objective Data Objective Data Vital Signs: Vital Signs Temp Pulse Resp BP Pulse Ox O2 Del Method O2 Flow Rate 98.4 F 85 18 126/63 H 98 Nasal Cannula 2 01/16/24 12:39 01/16/24 12:39 01/16/24 12:39 01/16/24 12:39 01/16/24 12:39 01/16/24 12:39 01/16/24 12:39 Oxygen Flow Rate (L/min) 2 Oxygen Delivery Method Nasal Cannula Weight: 145 lb 8.081 oz Body Mass Index (BMI) 24.8 Intake & Output: Intake and Output for Last 24 Hours 01/14/24 01/15/2424 23:59 23:59 23:59 Intake Total 3293.75 / 3293.75 1591.25 / 1591.25 810 / 810 Output Total 2450 / 2450 2175 / 2675 800 / 800 Balance 843.75 / 843.75 -583.75 / -1083.75 Lab / Micro Data 01/16/24 06:04 01/16/24 06:04 Labs: Laboratory Results - last 24 hr 01/15/24 08:25: Crossmatch See Detail 01/15/24 08:25: Crossmatch See Detail 01/16/24 06:04: WBC 10.2, RBC 2.28 L, Hgb 6.5 L, Hct 21.1 L, MCV 92.5, MCH 28.5,MCHC 30.8 L, RDW Std Deviation 51.7 H, RDW Coeff of Laura 15.8 H, Plt Count 186, MPV 9.4, Immature Gran % (Auto) 0.900, Neut % (Auto) 69.1, Lymph % (Auto) 16.4 L, Dawson % (Auto) 7.9, Eos % (Auto) 5.0, Baso % (Auto) 0.7, Absolute Neuts (auto) 7.1, Absolute Lymphs (auto) 1.67, Nucleated RBC % 0.8, Sodium 140, Potassium 4.2, Chloride 109 H, Carbon Dioxide 30.0, Anion Gap 1 L, BUN 11, Creatinine 0.47L, Estim Creat Clear Calc 51.56, Est GFR (MDRD) Af Amer 163, Est GFR (MDRD) Non-Af 134, BUN/Creatinine Ratio 23.3 H, Glucose 99, Calcium 8.8 Micro: Microbiology 01/15/24 10:00 Stool Stool Occult Blood (JACK) - Final Occult Blood Positive Physical Exam Const alert, oriented x3 and no apparent distress General Appearance: cooperative Orientation / Consciousness: confused HEENT normocephalic and head/scalp atraumatic Eyes PERRL and EOMs intact bilaterally Neck no lymphadenopathy and supple Lymph Lymphatic: no lymphadenopathy noted and no lymphedema noted Resp normal respiratory effort, normal air movement and clear to auscultation bilaterally Cardio Cardio Narrative: diminished breath sounds bibasally, no wheezes or crackles. On room air. GI normal to inspection, nondistended, normoactive bowel sounds, soft to palpation and non-tender Extremity normal capillary refill, no clubbing, cyanosis or edema and no calf tenderness General Extremity: no tenderness to palpation of joints or extremities Skin General Skin Exam: no breakdown Neuro CN's II-XII intact bilaterally, no focal motor deficits and no sensory deficits noted Motor Exam: strength 5/5 throughout and general weakness Psych thought process normal Psych Narrative: Appearance: appropriate Assessment & Plan Assessment/Plan (1) MOUSTAPHA (acute kidney injury): (2) Fall: (3) Closed fracture of single pubic ramus of pelvis: PLAN: Plan #Nondisplaced fracture of the right pubic bone due to mechanical fall. * had mechanical fall and pelvic xray showed fracture of the right pubic bone * PT/OT on board. * will be nonoperative. Fall precautions * #MOUSTAPHA * resolved. * * #Iron deficiency anemia * Hb today 6.5. She was transfused with packed red blood cells yesterday. She did have EGD which showed multiple bleeding ulcers. She is on IV PPI and sucralfate. * Will transfuse with 2 more units of packed red blood cells today. Will start on iron replacement. Will give iron infusion today. * Gastroenterology on board. * * * #Thrombocytopenia: Resolved. Platelets are 186 today. #COPD: not in exacerbation. Breathing treatment with bronchodilators. #Hypotension * resolved. Lisinopril resumed. #Hypertension: Back on her lisinopril and clonidine. * #Hyperlipidemia: on statin #Depression; on venlafaxine #Pulmonary nodule * CXR showed possible 8mm nodule in the right midlung. To have CT on outpatient basis for further evaluation. * DVT prophylaxis: SCDs. # Charges/Coding Visit Charges Inpatient E&M: 20863 Subs Hosp L3 01/16/24 1504 <Electronically signed by Kristie Lau MD> Kristie Lau MD Cosigner Signature (if applicable): CC: ~ Signed [facility] Work Phone: 1(490) 140-899502-27-2024 Progress note Author Kristie [facility] January 15, 2024 4:25pm Note Date/Time January 15, 2024 10:23[facility] Medical Records Department [address] [place] [address] Progress Note 01/15/24 1020 MR#: [id number] Acct: [id number] Name: ERLINDA PATHAK Rep #:[id number] : 1940 83 From: Kristie Lau MD PCP: Darcy Clifton MD Status:ADM IN Location: MS3 OQ386-0 Subjective Subjective Patient seen and examined. She had no complaints this morning. Review of systems otherwise negative. Hemoglobin today is down to 7. Gastroenterology consulted. Patient kept n.p.o. and she will have EGD today. I am profile showed iron deficiency anemia. 8 of packed red blood cell ordered. Objective Data Objective Data Vital Signs: Vital Signs Temp Pulse Resp BP Pulse Ox O2 Del Method O2 Flow Rate 98.0 F 105 H 18 187/93 H 92 Room Air 2 01/15/24 07:58 01/15/24 07:58 01/15/24 07:58 01/15/24 07:58 01/15/24 08:00 01/15/24 08:08 01/15/24 02:18 Oxygen Flow Rate (L/min) 2 Oxygen Delivery Method Room Air Weight: 145 lb 15.136 oz Body Mass Index (BMI) 25.0 Intake & Output: Intake and Output for Last 24 Hours 01/13/24 01/14/24 01/15/24 23:59 23:59 23:59 Intake Total 4302.50 / 4302.50 3293.75 / 3293.75 800 / 800 Output Total 2150 / 2150 2450 / 2450 1275 / 1275 Balance 2152.50 / 2152.50 843.75 / 843.75 -475 / -475 Lab / Micro Data 01/15/24 06:56 01/15/24 06:56 Labs: Laboratory Results - last 24 hr 01/15/24 06:56: WBC 9.0, RBC 2.36 L, Hgb 7.0 L, Hct 21.9 L, MCV 92.8, MCH 29.7, MCHC 32.0, RDW Std Deviation 50.8 H, RDW Coeff of Laura 15.3 H, Plt Count 161, MPV9.6, Immature Gran % (Auto) 0.700, Neut % (Auto) 66.3, Lymph % (Auto) 18.3 L, Dawson % (Auto) 8.4, Eos % (Auto) 5.6 H, Baso % (Auto) 0.7, Absolute Neuts (auto) 6.0, Absolute Lymphs (auto) 1.65, Nucleated RBC % 0.7, Sodium 143, Potassium 4.2, Chloride 111 H, Carbon Dioxide 29.0, Anion Gap 3 L, BUN 12, Creatinine 0.54L, Estim Creat Clear Calc 51.63, Est GFR (MDRD) Af Amer 140, Est GFR (MDRD) Non-Af 116, BUN/Creatinine Ratio 22.3 H, Glucose 100, Calcium 8.8 01/15/24 08:25: Blood Type A POSITIVE, Antibody Screen NEGATIVE Physical Exam Const alert, oriented x3 and no apparent distress General Appearance: cooperative Orientation / Consciousness: confused HEENT normocephalic and head/scalp atraumatic Eyes PERRL and EOMs intact bilaterally Neck no lymphadenopathy and supple Lymph Lymphatic: no lymphadenopathy noted and no lymphedema noted Resp normal respiratory effort, normal air movement and clear to auscultation bilaterally Cardio Cardio Narrative: diminished breath sounds bibasally, no wheezes or crackles. On room air. GI normal to inspection, nondistended, normoactive bowel sounds, soft to palpation and non-tender Extremity normal capillary refill, no clubbing, cyanosis or edema and no calf tenderness General Extremity: no tenderness to palpation of joints or extremities Skin General Skin Exam: no breakdown Neuro CN's II-XII intact bilaterally, no focal motor deficits and no sensory deficits noted Motor Exam: strength 5/5 throughout and general weakness Psych Appearance: appropriate Assessment & Plan Assessment/Plan (1) MOUSTAPHA (acute kidney injury): (2) Fall: (3) Closed fracture of single pubic ramus of pelvis: PLAN: Plan #Nondisplaced fracture of the right pubic bone due to mechanical fall. * had mechanical fall and pelvic xray showed fracture of the right pubic bone * PT/OT on board. * will be nonoperative. Fall precautions * #MOUSTAPHA * resolved. DC IVF * lisinopril and torsemide on hold * #Iron deficiency anemia * Hb is down to 7 today from 7.7 yesterday. * Iron profile showed iron deficiency anemia. * Will transfuse reminded of packed red blood cell. Gastroenterology consulted and patient for EGD today. * Currently NPO. * * * #Thrombocytopenia: Platelets at 123. Platelets have also dropped from 130 yesterday to 123. Was 166 on admission. May be due to hemodilution as well andthe patient is an off IV fluids. Will monitor and see. #COPD: not in exacerbation. Breathing treatment with bronchodilators. #Hypotension * resolved. Resume BP meds * #Hyperlipidemia: on statin #Depression; on venlafaxine #Pulmonary nodule * CXR showed possible 8mm nodule in the right midlung. To have CT on outpatient basis for further evaluation. * DVT prophylaxis: SCDs. # Charges/Coding Visit Charges Inpatient E&M: 41048 Subs Hosp L2 01/15/24 1621 <Electronically signed by Kristie Lau MD> Kristie Lau MD Cosigner Signature (if applicable): CC: ~ Signed [facility] Work Phone: 1(425) 466-477902-27-2024 Procedure [facility] 01-15-2024 Procedure [facility]02-26-2024 Progress note Author [facility] January 14, 2024 4:00pm Note Date/Time January 14, 2024 2:24pm [facility] Medical Records Department [address] [place] [address] Progress Note 01/14/24 1422 MR#: [id number] Acct: [id number] Name: ERLINDA PATHAK Rep #:[id number] : 1940 83 From: Kristie Lau MD PCP: Darcy Clifton MD Status:ADM IN [id number] Subjective Subjective Patient seen and examined. She had no complaints today. Review of systems otherwise negative. Hemoglobin is 7.7 today. Objective Data Objective Data Vital Signs: Vital Signs Temp Pulse Resp BP Pulse Ox O2 Del Method O2 Flow Rate 97.8 F 110 H 18 155/79 H 100 Nasal Cannula 2 01/14/24 09:25 01/14/24 09:25 01/14/24 09:25 01/14/24 09:25 01/14/24 09:25 01/14/24 09:25 01/14/24 09:25 Oxygen Flow Rate (L/min) 2 Oxygen Delivery Method Nasal Cannula Weight: 145 lb 15.136 oz Body Mass Index (BMI) 24.9 Intake & Output: Intake and Output for Last 24 Hours 01/12/24 01/13/24 01/14/24 23:59 23:59 23:59 Intake Total 500 / 500 4302.50 / 4302.50 1793.75 / 1793.75 Output Total 2150 / 2150 400 / 400 Balance 500 / 500 2152.50 / 2152.50 1393.75 / 1393.75 Lab / Micro Data 01/14/24 04:55 01/14/24 05:38 Labs: Laboratory Results - last 24 hr 01/14/24 04:55: WBC 10.5, RBC 2.72 L, Hgb 7.7 L, Hct 25.1 L, MCV 92.3, MCH 28.3,MCHC 30.7 L, RDW Std Deviation 50.7 H, RDW Coeff of Laura 15.0 H, Plt Count 123 L,MPV 10.1, Immature Gran % (Auto) 0.600, Neut % (Auto) 77.9 H, Lymph % (Auto) 10.7 L, Dawson % (Auto) 6.9, Eos % (Auto) 3.5, Baso % (Auto) 0.4, Absolute Neuts (auto) 8.2 H, Absolute Lymphs (auto) 1.12, Nucleated RBC % 0 01/14/24 05:38: Sodium 139, Potassium 4.0, Chloride 109 H, Carbon Dioxide 25.0, Anion Gap 5, BUN 28 H, Creatinine 0.85, Estim Creat Clear Calc 48.59, Est GFR (MDRD) Af Amer 82, Est GFR (MDRD) Non-Af 68, BUN/Creatinine Ratio 32.8 H, Glucose 121 H, Calcium 8.4 L, Iron 38 L, TIBC 460 H, Iron Saturation 8.3 L, Ferritin 64 Physical Exam Const alert, oriented x3 and no apparent distress General Appearance: cooperative Orientation / Consciousness: confused HEENT normocephalic and head/scalp atraumatic Eyes PERRL and EOMs intact bilaterally Neck no lymphadenopathy and supple Lymph Lymphatic: no lymphadenopathy noted and no lymphedema noted Resp normal respiratory effort, normal air movement and clear to auscultation bilaterally Cardio Cardio Narrative: diminished breath sounds bibasally, no wheezes or crackles. On room air. GI normal to inspection, nondistended, normoactive bowel sounds, soft to palpation and non-tender Extremity normal capillary refill, no clubbing, cyanosis or edema and no calf tenderness General Extremity: no tenderness to palpation of joints or extremities Skin General Skin Exam: no breakdown Neuro CN's II-XII intact bilaterally, no focal motor deficits and no sensory deficits noted Motor Exam: general weakness Psych thought process normal Appearance: appropriate Assessment & Plan Assessment/Plan (1) MOUSTAPHA (acute kidney injury): (2) Fall: (3) Closed fracture of single pubic ramus of pelvis: PLAN: Plan #Nondisplaced fracture of the right pubic bone due to mechanical fall. * had mechanical fall and pelvic xray showed fracture of the right pubic bone * PT/OT on board. * will be nonoperative. Fall precautions * * #MOUSTAPHA * resolved. DC IVF * lisinopril and torsemide on hold * #Anemia * hb is 7.7 today, up from 7.6. was 11 on admission. However, all cell indices have fallen, ie wbc and platelets were low. * Will trend. May be hemodilutional. * Check stool for occult blood. * iron profile pending. If stool for occult blood is positive will get GI consult * * #Thrombocytopenia: Platelets at 123. Platelets have also dropped from 130 yesterday to 123. Was 166 on admission. May be due to hemodilution as well andthe patient is an off IV fluids. Will monitor and see. #COPD: not in exacerbation. Breathing treatment with bronchodilators. #Hypotension * resolved. Resume BP meds * #Hyperlipidemia: on statin #Depression; on venlafaxine #Pulmonary nodule * CXR showed possible 8mm nodule in the right midlung. To have CT on outpatient basis for further evaluation. * DVT prophylaxis: SCDs. # Charges/Coding Visit Charges Inpatient E&M: 42302 Subs Hosp L2 01/14/24 1600 <Electronically signed by Kristie Lau MD> Kristie Lau MD Cosigner Signature (if applicable): CC: ~ Signed [facility] Work Phone: 1(564) 294-179702-25-2024 Progress note Author Kristie Lau [facility] January 13, 2024 1:17pm Note Date/Time January 13, 2024 12:21pm [facility] Medical Records Department [address] [place] [address] Progress Note 01/13/24 1220 MR#: [id number] Acct: [id number] Name: ERLINDA PATHAK Rep #:[id number] : 1940 83 From: Kristie Lau MD PCP: Darcy Clifton MD Status:ADM IN Location: MA3 NL785-8 Subjective Subjective Patient seen and examined. She was quite confused. She was admitted with a complaint of mechanical fall. She denied any dizziness, lightheadedness, nausea,vomiting or any other symptoms. Review of systems is otherwise negative. BP is running low. Objective Data Objective Data Vital Signs: Vital Signs Temp Pulse Resp BP Pulse Ox O2 Del Method O2 Flow Rate 98.5 F 67 18 96/50 L 99 Nasal Cannula 2 01/13/24 08:23 01/13/24 09:59 01/13/24 08:23 01/13/24 09:59 01/13/24 08:23 01/13/24 08:23 01/13/24 08:23 Oxygen Flow Rate (L/min) 2 Oxygen Delivery Method Nasal Cannula Weight: 145 lb 8.081 oz Body Mass Index (BMI) 24.8 Intake & Output: Intake and Output for Last 24 Hours 01/11/24 01/12/24 01/13/24 23:59 23:59 23:59 Intake Total 500 / 500 2408.75 / 2408.75 Output Total 500 / 500 Balance 500 / 500 1908.75 / 1908.75 Lab / Micro Data 01/13/24 03:53 01/13/24 03:53 Labs: Laboratory Results - last 24 hr 01/12/24 04:55: Urine Color Yellow, Urine Clarity Clear, Urine pH 6.0, Ur Specific Lucan 1.015, Urine Protein Negative, Urine Glucose (UA) Normal, UrineKetones Negative, Urine Occult Blood Negative, Urine Nitrite Negative, Urine Bilirubin Negative, Urine Urobilinogen Normal, Ur Leukocyte Esterase Negative, Urine RBC 0 SEEN, Urine WBC 0 SEEN, Ur Squamous Epith Cells 0 SEEN, Urine Bacteria 0 SEEN, Urine Mucus 0 SEEN 01/12/24 12:49: WBC 16.0 H, RBC 3.89 L, Hgb 11.1 L, Hct 35.4 L, MCV 91.0, MCH 28.5, MCHC 31.4 L, RDW Std Deviation 49.2 H, RDW Coeff of Laura 14.7 H, Plt Count 166, MPV 9.7, Immature Gran % (Auto) 0.800, Neut % (Auto) 87.3 H, Lymph % (Auto)6.6 L, Dawson % (Auto) 4.7, Eos % (Auto) 0.2, Baso % (Auto) 0.4, Absolute Neuts (auto) 14.0 H, Absolute Lymphs (auto) 1.05, Nucleated RBC % 0, Sodium 142, Potassium 4.3, Chloride 106, Carbon Dioxide 32.0, Anion Gap 4 L, BUN 22 H, Creatinine 1.05 H, Estim Creat Clear Calc 39.28, Est GFR (MDRD) Af Amer 65, Est GFR (MDRD) Non-Af 53 L, BUN/Creatinine Ratio 21.0 H, Glucose 136 H, Calcium 9.4,Total Creatine Kinase 125 01/13/24 03:53: WBC 11.6 H, RBC 2.66 L, Hgb 7.6 L, Hct 24.0 L, MCV 90.2, MCH 28.6, MCHC 31.7 L, RDW Std Deviation 48.4 H, RDW Coeff of Laura 14.9 H, Plt Count 130 L, MPV 9.6, Immature Gran % (Auto) 0.900, Neut % (Auto) 80.4 H, Lymph % (Auto) 9.8 L, Dawson % (Auto) 5.9, Eos % (Auto) 2.5, Baso % (Auto) 0.5, Absolute Neuts (auto) 9.3 H, Absolute Lymphs (auto) 1.14, Nucleated RBC % 0, Sodium 135 L, Potassium 4.3, Chloride 103, Carbon Dioxide 28.0, Anion Gap 4 L, BUN 36 H, Creatinine 1.69 H, Estim Creat Clear Calc 24.41, Est GFR (MDRD) Af Amer 37 L, Est GFR (MDRD) Non-Af 31 L, BUN/Creatinine Ratio 21.3 H, Glucose 129 H, Calcium 8.1 L Radiography Diagnostic Testing: Radiology Impression Chest X-Ray 01/12/24 12:36 IMPRESSION: Possible pulmonary nodule in the right midlung; recommend follow-up or CT. Electronically Signed: Erica Acevedo MD at 13:17 EST , Hip/Pelvis X-Ray 01/12/24 12:36 IMPRESSION: Nondisplaced fracture of the right pubic bone. Electronically Signed: Erica Acevedo MD at 13:19 EST , Lumbar Spine X-Ray 01/12/24 12:36 IMPRESSION: No acute fracture or dislocation identified in the lumbar spine. Multilevel degenerative change. Mild scoliosis. Electronically Signed: Erica Acevedo MD at 14:14 EST , Physical Exam Const alert and no apparent distress General Appearance: cooperative Orientation / Consciousness: confused HEENT normocephalic and head/scalp atraumatic Mouth: dry mucous membranes Eyes PERRL and EOMs intact bilaterally Neck no lymphadenopathy and supple Lymph Lymphatic: no lymphadenopathy noted and no lymphedema noted Resp normal respiratory effort, normal air movement and clear to auscultation bilaterally Cardio Cardio Narrative: diminished breath sounds bibasally, no wheezes or crackles. On room air. GI normal to inspection, nondistended, normoactive bowel sounds, soft to palpation and non-tender Extremity normal capillary refill, no clubbing, cyanosis or edema and no calf tenderness General Extremity: no tenderness to palpation of joints or extremities Skin General Skin Exam: no breakdown Neuro CN's II-XII intact bilaterally, no focal motor deficits and no sensory deficits noted Motor Exam: general weakness Psych Psych Narrative: confused. Assessment & Plan Assessment/Plan (1) MOUSTAPHA (acute kidney injury): (2) Fall: (3) Closed fracture of single pubic ramus of pelvis: PLAN: Plan #Nondisplaced fracture of the right pubic bone due to mechanical fall. * had mechanical fall and pelvic xray showed fracture of the right pubic bone * Pt/OT on board. * will be nonoperative. Fall precautions * * #MOUSTAPHA * Cr was 1.05 on admission. Now up to 1.69. * lisinopril and torsemide on hold * ISS. Accuchecks ACHS * continue hydration with IVF * #Anemia * hb is 7.6. was 11 on admission. However, all cell indices have fallen, ie wbc and platelets were low. * Will trend. May be hemodilutional. * Check stool for occult blood. * if it drops further, will get GI consult * #COPD: not in exacerbation. Breathing treatment with bronchodilators. #Hypotension * BP is running low with BP in the 90s systolic * will hold BP meds and hydrate with iVF. Given a bolus of 1L of NS. * #Hyperlipidemia: on statin #Depression; on venlafaxine #Pulmonary nodule * CXR showed possible 8mm nodule in the right midlung. TO CT for further evaluation. * DVT prophylaxis: SCDs. # Charges/Coding Visit Charges Inpatient E&M: 19476 Subs Hosp L3 01/13/24 1317 <Electronically signed by Kristie Lau MD> Kristie Lau MD Cosigner Signature (if applicable): CC: ~ Signed [facility] Work Phone: 1([phone]) 187-958602-24-2024 History and physical note Author Amanda Jeter [facility] January 12, 2024 4:39pm Note Date/Time January 12, 2024 4:25pm [facility] Medical Records Department [address] [place] [address] H&P Exam - Hospitalist 01/12/24 1623 MR#: [id number] Acct: [id number] Name: ERLINDA PATHAK Rep #:[id number] : 1940 83 From: Amanda Jeter MD PCP: Darcy Clifton MD Status:ADM IN Location: [place] RD117-0 HPI - General General Date of Admission: 01/12/24 Date of Service: 01/12/24 Chief Complaint: Fall with R hip pain HPI Narrative ERLINDA PATHAK, is a 83-year-old female history of depression, COPD, dementia, hypertension who presented to [facility] ED 01/12/2024 after a fall at her assisted living facility. She tripped last night while walking in the living room and landed on her buttocks and back with no head injury or loss of consciousness. She was unable to get back into bed so nurse came in to help her at 630 this morning but she was unable to stand and ambulate due to back andhip pain so EMS was called. Patient found to have nondisplaced fracture of right pubic bone, WBC of 16, and a slight bump in BUN/CR. Given pt unable to ambulate hospitalist contacted for admission for pain control and PT/OT. Pt evaluated at bedside with family members present, patient does not really remember what happened with her fall last night or why she fell but does endorsethat she remained on the floor for period of time until this morning, has had the right-sided hip/pubic pain but denies any other acute or focal complaints. Family at bedside endorsed that she has some chronic right knee pain that at times makes it difficult to walk and they suspect that this contributed to her fall. At present reports as long she is at rest she is not having any significant pain and it is primarily present when she moves. Additionally discussed CODE STATUS with patient and family, patient initially said she would want everything done but family reminded her that that was not consistent with her previous wishes and that she is in fact DNR/DNI and after this was mentionedpatient agreed that that was indeed the case. [facility] Medical History (Updated 01/12/24 @ 16:[address] Amanda Jeter MD) COPD (chronic obstructive pulmonary disease) Depression HTN (hypertension) Hyperlipemia Osteoarthritis Home Medications alendronate 70 mg tablet mg PO 01/12/24 [History Last Taken Unknown] aspirin 81 mg chewable tablet 01/12/24 [History Last Taken 01/12/24] atorvastatin 20 mg tablet mg 01/12/24 [History Last Taken 01/11/24] calcium carbonate 500 mg-vitamin D3 15 mcg (600 unit) tablet tab PO 01/12/24 [History Last Taken 01/12/24] clonidine HCl 0.1 mg tablet 0.1 mg PO BID 01/12/24 [History Last Taken Unknown] donepezil 10 mg tablet mg 01/12/24 [History Last Taken 01/11/24] fluticasone fur. 100 mcg-umeclid 62.5 mcg-vilant 25 mcg inhalat.powder (Trelegy Ellipta) 1 inh inhalation DAILY 01/12/24 [History Last Taken Unknown] fluticasone furoate 100 mcg-vilanterol 25 mcg/dose inhalation powder (Breo Ellipta) inhalation 01/12/24 [History Last Taken Unknown] lisinopril 40 mg tablet mg 01/12/24 [History Last Taken 01/12/24] montelukast 10 mg tablet mg 01/12/24 [History Last Taken 01/12/24] oxybutynin chloride 10 mg tablet,extended release 24 hr mg PO 01/12/24 [History Last Taken 01/11/24] potassium chloride 20 mEq tablet,extended release meq PO 01/12/24 [History Last Taken Unknown] primidone 50 mg tablet 50 mg PO DAILY 01/12/24 [History Last Taken Unknown] propranolol 80 mg capsule,24 hr,extended release mg PO 01/12/24 [History Last Taken Unknown] torsemide 20 mg tablet 20 mg PO DAILY 01/12/24 [History Last Taken Unknown] venlafaxine 150 mg capsule,extended release 24 hr mg PO 01/12/24 [History Last Taken Unknown] Allergy/AdvReac Type Severity Reaction Status Date / Time Penicillins Allergy Unknown NEEDS Verified 01/12/24 12:15 FOLLOW-UP Social History Smoking Status: Never smoker ROS ROS Narrative General: Denies fever/chills HENT: Denies headache, denies stuffy nose, denies sore throat EYES: Denies changes in vision Resp: Denies cough, denies shortness of breath Cardiac: Denies chest pain GI: Denies abdominal pain, denies changes in bowel, denies nausea/vomiting : Denies changes in urination Extremity: Denies swelling MSK: Denies weakness, has some pain on right hip Neuro: Denies any numbness/tingling Heme: Denies any bleeding or bruising Skin: Denies rashes Psychiatric: No complaints voiced Vital Signs Vital Signs Vital Signs: 01/12/24 12:07 01/12/24 15:32 Temperature 97.5 F L 98.2 F Temperature Source Temporal Pulse Rate 77 73 Respiratory Rate 16 12 Blood Pressure 141/77 H 106/70 Blood Pressure Mean 98 82 Pulse Ox 92 97 Oxygen Delivery Method Room Air Weight Weight: 66 kg Body Mass Index (BMI) 25.0 Physical Exam Narrative General: Alert, no apparent distress HEENT: Atraumatic, normocephalic Eyes: Anicteric, normal conjunctiva, extraocular movements grossly intact Neck: Supple Respiratory: Clear to auscultation bilaterally, normal respiratory effort Cardiovascular: Regular rate and rhythm GI: Soft, nontender, nondistended Extremities: No edema Musculoskeletal: Moving all extremities, right knee is bigger than left knee with chronic OA, not tender to palpation Neuro: No overt focal neurological deficits Skin: No rashes appreciated Psych: Cooperative Results Lab / Micro Data 01/12/24 12:49 01/12/24 12:49 Labs: Laboratory Results - last 24 hr 01/12/24 12:49: WBC 16.0 H, RBC 3.89 L, Hgb 11.1 L, Hct 35.4 L, MCV 91.0, MCH 28.5, MCHC 31.4 L, RDW Std Deviation 49.2 H, RDW Coeff of Laura 14.7 H, Plt Count 166, MPV 9.7, Immature Gran % (Auto) 0.800, Neut % (Auto) 87.3 H, Lymph % (Auto)6.6 L, Dawson % (Auto) 4.7, Eos % (Auto) 0.2, Baso % (Auto) 0.4, Absolute Neuts (auto) 14.0 H, Absolute Lymphs (auto) 1.05, Nucleated RBC % 0, Sodium 142, Potassium 4.3, Chloride 106, Carbon Dioxide 32.0, Anion Gap 4 L, BUN 22 H, Creatinine 1.05 H, Estim Creat Clear Calc 39.28, Est GFR (MDRD) Af Amer 65, Est GFR (MDRD) Non-Af 53 L, BUN/Creatinine Ratio 21.0 H, Glucose 136 H, Calcium 9.4 Imaging Radiology Impression Chest X-Ray 01/12/24 12:36 IMPRESSION: Possible pulmonary nodule in the right midlung; recommend follow-up or CT. Electronically Signed: Erica Acevedo MD at 13:17 EST , Hip/Pelvis X-Ray 01/12/24 12:36 IMPRESSION: Nondisplaced fracture of the right pubic bone. Electronically Signed: Erica Acevedo MD at 13:19 EST Reading Location ID and State: [facility] / [place] Tel , Service support , Lumbar Spine X-Ray 01/12/24 12:36 IMPRESSION: No acute fracture or dislocation identified in the lumbar spine. Multilevel degenerative change. Mild scoliosis. Electronically Signed: Erica Acevedo MD at 14:14 EST Reading Location ID and State: [facility] / [place] Tel , Service support , Assessment & Plan Assessment/Plan (1) Closed fracture of single pubic ramus of pelvis: (2) Fall: (3) MOUSTAPHA (acute kidney injury): (4) COPD (chronic obstructive pulmonary disease): PLAN: Plan #Nondisplaced fracture of right pubic bone -Seen on xray -Schedule tylenol -Pain control -Supportive care -PT/OT -Case management consult #MOUSTAPHA -BUN 22 with creatinine 1.05, baseline 0.6-0.7 -Gentle IVF -Hold lisinopril and torsemide -Daily weights, I's and O's -Given patient was down overnight will check CK #Leukocytosis -Pt denies any focal complaints but somewhat poor historian -UA pending -No other focal concerns for infxn # Possible pulmonary nodule -Chest x-ray questioned 8 mm nodule opacity in right midlung and recommended follow up or CT -Can have repeat imaging on d/c if pt/family would like further eval #Hypertension -Presently normotensive, given bump in creatinine we will hold lisinopril -Awaiting med rec completion for further adjustments # COPD -Continue home inhalers #MCI -Continue donepezil -Schedule melatonin qhs # Depression -Venlafaxine, will continue #DVT ppx: lovenox sub q Amanda Jeter MD Time spent in the patient's overall evaluation,decision-making process, review of diagnostic data, adjustment of management, discussion with other providers, nursing nursing and ancillary staff involved in patient's care documentation, 57Minutes Charges/Coding Visit Charges Inpatient E&M: 04372 Init Hosp L2 01/12/24 1639 <Electronically signed by Amanda Jeter MD> Cosigner Signature (if applicable): CC: Dr. Amanda Jeter MD; Darcy Clifton MD~ Signed [facility] Work Phone: [phone]) 217-126602-24-2024 Discharge summary Author Michaela Babcock [facility] January 12, 2024 3:50pm Note Date/Time January 12, 2024 12:50pm [facility] Medical Records Department [address] [place] [address] Emergency Department Summary 01/12/24 MR#: [id number] Acct: [id number] Name: LAWSONAIDAERLINDA J Rep #:[id number] : 1940 83 From: Jelani Miranda MD PCP: Darcy Clifton MD Status:REG ER Location: ED HPI <LUZ Rbeolledo - Last Filed: 01/12/24 15:50> History of Present Illness Chief Complaint: Lower Extremity Injury Narrative Narrative: 83-year-old female with PMH of HTN, HLD, COPD and remote smoker presents after afall at her assisted living facility. She tripped and fell last night while walking in the living room and landed on her buttocks and back. No head injury or LOC. She was able to get up and slipped on the carpet all night. A nurse came in around 6:30 AM this morning and helped her into bed. Her daughter was notified and arrived around 10:30 AM and the patient was wearing her 3 L O2 she wears with sleep. However she was unable to stand and ambulate due to back and hip pain so she called EMS. She is not on blood thinners. She denies fever or recent illness. PFSH <LUZ Rebolledo - Last Filed: 01/12/24 15:50> [facility] Medical History (Updated 01/12/24 @ 13:[address] Jelani Miranda MD) COPD (chronic obstructive pulmonary disease) Depression HTN (hypertension) Hyperlipemia Osteoarthritis Home Medications alendronate 70 mg tablet mg PO 01/12/24 [History Last Taken Unknown] aspirin 81 mg chewable tablet 01/12/24 [History Last Taken 01/12/24] atorvastatin 20 mg tablet mg 01/12/24 [History Last Taken 01/11/24] calcium carbonate 500 mg-vitamin D3 15 mcg (600 unit) tablet tab PO 01/12/24 [History Last Taken 01/12/24] clonidine HCl 0.1 mg tablet 0.1 mg PO BID 01/12/24 [History Last Taken Unknown] donepezil 10 mg tablet mg 01/12/24 [History Last Taken 01/11/24] fluticasone fur. 100 mcg-umeclid 62.5 mcg-vilant 25 mcg inhalat.powder (Trelegy Ellipta) 1 inh inhalation DAILY 01/12/24 [History Last Taken Unknown] fluticasone furoate 100 mcg-vilanterol 25 mcg/dose inhalation powder (Breo Ellipta) inhalation 01/12/24 [History Last Taken Unknown] lisinopril 40 mg tablet mg 01/12/24 [History Last Taken 01/12/24] montelukast 10 mg tablet mg 01/12/24 [History Last Taken 01/12/24] oxybutynin chloride 10 mg tablet,extended release 24 hr mg PO 01/12/24 [History Last Taken 01/11/24] potassium chloride 20 mEq tablet,extended release meq PO 01/12/24 [History Last Taken Unknown] primidone 50 mg tablet 50 mg PO DAILY 01/12/24 [History Last Taken Unknown] propranolol 80 mg capsule,24 hr,extended release mg PO 01/12/24 [History Last Taken Unknown] torsemide 20 mg tablet 20 mg PO DAILY 01/12/24 [History Last Taken Unknown] venlafaxine 150 mg capsule,extended release 24 hr mg PO 01/12/24 [History Last Taken Unknown] Allergy/AdvReac Type Severity Reaction Status Date / Time Penicillins Allergy Unknown NEEDS Verified 01/12/24 12:15 FOLLOW-UP Social History Smoking Status: Never smoker ROS <LUZ Rebolledo - Last Filed: 01/12/24 15:50> ROS ED ROS Narrative Constitutional: Negative for fever, chills, malaise. CVS: Negative for chest pain. Respiratory: Negative for shortness of breath, cough. GI: Negative for abdominal pain, nausea, vomiting, melena, hematochezia. : Negative for dysuria. Neuro: Negative for headache. EXAM <LUZ Rebolledo - Last Filed: 01/12/24 15:50> Physical Exam Narrative Exam Narrative: CONST: Patient sitting in no acute distress. EYES: Normal inspection. PERRL, EOMI. ENT: Head normocephalic atraumatic, no raccoon eyes or johnson sign, no hemotympanum, no nasal septal hematoma, no CSF otorrhea or rhinorrhea. NECK: Normal inspection. RESP: No respiratory distress, CTAB. Chest wall nontender. CVS: Regular rate and rhythm, no murmur, no gallop. ABD: Soft and nontender, no guarding or rebound, nondistended. Back: Normal inspection, no cervical or thoracic tenderness, tender over lower lumbar without step-offs or crepitus. SKIN: Color normal, no rash, warm, dry, intact. EXTREMITIES: Normal appearance, full ROM upper extremities, no tenderness, 2+ radial pulses. BLLE symmetric, no shortening or rotation, patient will not hip flex bilaterallydue to pain but has full passive range of motion without pain, 5/5 DF/PF strength, normal sensation, 2+ DP pulses. Pelvis stable. NEURO: Alert to self, place, age, states year is 2022 but "I do not keep up." PSYCH: Normal affect. Const Vital Signs: 01/12/24 12:07 01/12/24 15:32 Temperature 97.5 F L 98.2 F Temperature Source Temporal Pulse Rate 77 73 Respiratory Rate 16 12 Blood Pressure 141/77 H 106/70 Blood Pressure Mean 98 82 Pulse Ox 92 97 Oxygen Delivery Method Room Air <Dr. Jelani Miranda MD - Last Filed: 01/12/24 13:47> Physical Exam Const Vital Signs: 01/12/24 12:07 01/12/24 15:32 Temperature 97.5 F L 98.2 F Temperature Source Temporal Pulse Rate 77 73 Respiratory Rate 16 12 Blood Pressure 141/77 H 106/70 Blood Pressure Mean 98 82 Pulse Ox 92 97 Oxygen Delivery Method Room Air MDM <LUZ Rebolledo - Last Filed: 01/12/24 15:50> MDM MDM Narrative Medical decision making narrative: History gathered from: Patient and daughter Differential: Contusion, hip or pelvic fracture Patient had mechanical fall overnight and could not get up at her assisted living facility. Today she cannot ambulate. She has no external signs of injury. She states she will not flex in either hip due to pain but has no shortening or rotation. Full passive ROM. Distally neurovascularly intact. X-rays show a nondisplaced right pubic rami fracture. Labs show white count of 16.0, hemoglobin 11.1, otherwise unremarkable. Urine is ordered. Patient cannot ambulate secondary to pelvic pain and will need admitted. Case was discussed with the hospitalist. I have personally performed a face to face assessment of the patient and have reviewed the SOPHIA Note. I performed a substantive portion of the visit including all aspects of the following. My yates findings include: History is 83-year-old female fell at assisted living complaining of pain to herright groin. Fell last night and laid on the floor throughout the night. Did not hit her head. Denies other complaints. No recent illness. No vomiting diarrhea or fever. Family is present in the room. Exam is [83-year-old female no acute distress. Vital signs stable afebrile. HEENT exam unremarkable atraumatic. Pupils round reactive light. Normal speech. Neck nontender. Back and spine nontender. No bruising. There are signs of trauma. Lungs clear to auscultation. Heart regular rhythm rate about 75 no murmur. Chest wall and ribs nontender. Abdomen soft nontender. Pelvic girdle intact right groin tenderness. She has no shortening or rotation either hip. Dorsi and plantarflexion intact. She is able to flex and extend both knees and hips. Upper extremities are nontender. Normal etymology professor strength. Neurologically she is awake and alert. Answers questions and follows commands. No focal motor deficits.] Medical Decision Making [83-year-old assisted living fell as a right superior pubic rami/pelvic bone fracture. She is unable to stand due to the discomfort. Will speak to the hospitalist about admission for pain control and/or physical therapy.] Other additions or changes: [None] Lab Data Attestation: I reviewed the patient's lab results. Labs: Laboratory Results - last 24 hr 01/12/24 12:49 WBC 16.0 H RBC 3.89 L Hgb 11.1 L Hct 35.4 L MCV 91.0 MCH 28.5 MCHC 31.4 L RDW Std Deviation 49.2 H RDW Coeff of Laura 14.7 H Plt Count 166 MPV 9.7 Immature Gran % (Auto) 0.800 Neut % (Auto) 87.3 H Lymph % (Auto) 6.6 L Dawson % (Auto) 4.7 Eos % (Auto) 0.2 Baso % (Auto) 0.4 Absolute Neuts (auto) 14.0 H Absolute Lymphs (auto) 1.05 Nucleated RBC % 0 Sodium 142 Potassium 4.3 Chloride 106 Carbon Dioxide 32.0 Anion Gap 4 L BUN 22 H Creatinine 1.05 H Estim Creat Clear Calc 39.28 Est GFR (MDRD) Af Amer 65 Est GFR (MDRD) Non-Af 53 L BUN/Creatinine Ratio 21.0 H Glucose 136 H Calcium 9.4 Radiography Diagnostic Testing: Clinical Impression(s) from Imaging Studies Chest X-Ray 01/12/24 12:36 IMPRESSION: Possible pulmonary nodule in the right midlung; recommend follow-up or CT. Electronically Signed: Erica Acevedo MD at 13:17 EST , Hip/Pelvis X-Ray 01/12/24 12:36 IMPRESSION: Nondisplaced fracture of the right pubic bone. Electronically Signed: Erica Acevedo MD at 13:19 EST , Lumbar Spine X-Ray 01/12/24 12:36 IMPRESSION: No acute fracture or dislocation identified in the lumbar spine. Multilevel degenerative change. Mild scoliosis. Electronically Signed: Erica Acevedo MD at 14:14 EST , <Dr. Jelani Miranda MD - Last Filed: 01/12/24 13:47> [facility] MDM Narrative Medical decision making narrative: History gathered from: Patient and daughter Patient had mechanical fall overnight and could not get up at her assisted living facility. Today she cannot ambulate. She has no external signs of injury. She states she will not flex in either hip due to pain but has no shortening or rotation. Full passive ROM. Distally neurovascularly intact. X-rays show a nondisplaced right pubic rami fracture. Labs show white count of 16.0, hemoglobin 11.1, otherwise unremarkable. I have personally performed a face to face assessment of the patient and have reviewed the SOPHIA Note. I performed a substantive portion of the visit including all aspects of the following. My yates findings include: History is 83-year-old female fell at assisted living complaining of pain to her right groin. Fell last night and laid on the floor throughout the night. Did not hit her head. Denies other complaints. No recent illness. No vomiting diarrhea or fever. Family is present in the room. Exam is [83-year-old female no acute distress. Vital signs stable afebrile. HEENT exam unremarkable atraumatic. Pupils round reactive light. Normal speech. Neck nontender. Back and spine nontender. No bruising. There are signs of trauma. Lungs clear to auscultation. Heart regular rhythm rate about 75 no murmur. Chest wall and ribs nontender. Abdomen soft nontender. Pelvic girdle intact right groin tenderness. She has no shortening or rotation either hip. Dorsi and plantarflexion intact. She is able to flex and extend both knees and hips. Upper extremities are nontender. Normal etymology professor strength. Neurologically she is awake and alert. Answers questions and follows commands. No focal motor deficits.] Medical Decision Making [83-year-old assisted living fell as a right superior pubic rami/pelvic bone fracture. She is unable to stand due to the discomfort. Will speak to the hospitalist about admission for pain control and/or physical therapy.] Other additions or changes: [None] History & Record Review Discussion w/independent historian: Patient and Family Additional record(s) reviewed:: Prior inpatient record, Prior outpatient record, Prior ED visit and Prior labs Lab Data Lab results narrative: CBC white count of 16. H&H 11.1 and 35. Platelets 166. Electrolytes show a gap of 4. BUN 22 creatinine of 1. Glucose 136. Labs: Laboratory Results - last 24 hr 01/12/24 12:49 WBC 16.0 H RBC 3.89 L Hgb 11.1 L Hct 35.4 L MCV 91.0 MCH 28.5 MCHC 31.4 L RDW Std Deviation 49.2 H RDW Coeff of Laura 14.7 H Plt Count 166 MPV 9.7 Immature Gran % (Auto) 0.800 Neut % (Auto) 87.3 H Lymph % (Auto) 6.6 L Dawson % (Auto) 4.7 Eos % (Auto) 0.2 Baso % (Auto) 0.4 Absolute Neuts (auto) 14.0 H Absolute Lymphs (auto) 1.05 Nucleated RBC % 0 Sodium 142 Potassium 4.3 Chloride 106 Carbon Dioxide 32.0 Anion Gap 4 L BUN 22 H Creatinine 1.05 H Estim Creat Clear Calc 39.28 Est GFR (MDRD) Af Amer 65 Est GFR (MDRD) Non-Af 53 L BUN/Creatinine Ratio 21.0 H Glucose 136 H Calcium 9.4 Radiography Chest X-Ray - ED: 1 View, Read by ED Physician, Read by Radiologist, Heart, Lungs, Mediastinum, Bony Structures, No Acute Disease and Chronic Changes Diagnostic Testing: Clinical Impression(s) from Imaging Studies Chest X-Ray 01/12/24 12:36 IMPRESSION: Possible pulmonary nodule in the right midlung; recommend follow-up or CT. Electronically Signed: Erica Acevedo MD at 13:17 EST , Hip/Pelvis X-Ray 01/12/24 12:36 IMPRESSION: Nondisplaced fracture of the right pubic bone. Electronically Signed: Erica Acevedo MD at 13:19 EST , Lumbar Spine X-Ray 01/12/24 12:36 IMPRESSION: No acute fracture or dislocation identified in the lumbar spine. Multilevel degenerative change. Mild scoliosis. Electronically Signed: Erica Acevedo MD at 14:14 EST , Chest x-ray, portable, single view turbulence of radiologist shows no acute abnormality. Normal cardiac silhouette. Normal lung mcdonnell. No rib fractures. Pelvis and hip x-rays 5 views. Interpreted by myself and the radiologist shows a right either superior pubic rami or pubic bone fracture. Otherwise the hips are unremarkable. 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 Discharge Plan Triage Chief Complaint: Lower Extremity Injury ED Midlevel Provider: Michaela Babcock ED Provider: Jelani Miranda Dx/Rx/DC Orders Clinical Impression: Closed fracture of single pubic ramus of pelvis, Inability to walk, Fall Prescriptions: No Action atorvastatin 20 mg tablet Patient Comments: TAKE 1 TABLET BY MOUTH ONCE DAILY donepezil 10 mg tablet Patient Comments: TAKE 1 TABLET BY MOUTH NIGHTLY aspirin 81 mg tablet,chewable Patient Comments: CHEW AND SWALLOW 1 TABLET BY MOUTH ONCE DAILY calcium carbonate-vitamin D3 500 mg-15 mcg (600 unit) tablet PO Patient Comments: TAKE 1 TABLET BY MOUTH TWICE DAILY clonidine HCl 0.1 mg tablet 0.1 mg PO BID oxybutynin chloride 10 mg tablet extended release 24hr PO Patient Comments: TAKE 1 TABLET BY MOUTH EVERY DAY alendronate 70 mg tablet PO Patient Comments: TAKE 1 TABLET NEEDED EVERY SUN {Q1W1} venlafaxine 150 mg capsule,extended release 24hr PO Patient Comments: TAKE 1 CAPSULE BY MOUTH EVERY DAY propranolol 80 mg capsule,extended release 24 hr PO Patient Comments: TAKE 1 CAPSULE BY MOUTH TWICE DAILY HOLD FOR SBP <120 montelukast 10 mg tablet Patient Comments: TAKE 1 TABLET BY MOUTH EVERY DAY lisinopril 40 mg tablet Patient Comments: TAKE 1 TABLET BY MOUTH ONCE DAILY fluticasone furoate-vilanterol [Breo Ellipta] 100-25 mcg/dose blister with device INHALATION Patient Comments: INHALE ONE (1) PUFF BY MOUTH ONCE DAILY potassium chloride 20 mEq tablet extended release PO Patient Comments: TAKE 1 TABLET BY MOUTH ONCE DAILY WITH FOOD torsemide 20 mg tablet 20 mg PO DAILY primidone 50 mg tablet 50 mg PO DAILY Trelegy Ellipta 100-62.5-25 mcg blister with device 1 inh inhalation DAILY Primary Care Provider: Darcy Clifton Referrals: Darcy Clifton MD [Primary Care Provider] - What to do if you have Problems For any increased pain, shortness of breath, bleeding, nausea or vomiting, chestpain, or any unexpected problems, contact your Primary Care Provider. Call [facility] ([phone]) or report to the closest Emergency Room. Call 911 if necessary. 01/12/24 1347 <Electronically signed by Jelani Miranda MD> Cosigner Signature (if applicable): 01/12/24 1550 <Electronically signed by Michaela ESCOBAR> CC: Daryc Clifton MD ~ Signed [facility] Work Phone: 1(736) 913-961202-24-2024 Discharge summary [facility] 12, [facility] 3:50pm Note Date/Time January 12, 2024 12:50pm [facility] Medical Records Department [address] [place] [address] Emergency Department Summary 01/12/24 MR#: [id number] Acct: [id number] Name: ERLINDA PATHAK Rep #:[id number] : 1940 83 From: Jelani Miranda MD PCP: Darcy Clifton MD Status:REG ER Location: ED HPI <LUZ Rebolledo - Last Filed: 01/12/24 15:50> History of Present Illness Chief Complaint: Lower Extremity Injury Narrative Narrative: 83-year-old female with PMH of HTN, HLD, COPD and remote smoker presents after afall at her assisted living facility. She tripped and fell last night while walking in the living room and landed on her buttocks and back. No head injury or LOC. She was able to get up and slipped on the carpet all night. A nurse came in around 6:30 AM this morning and helped her into bed. Her daughter was notified and arrived around 10:30 AM and the patient was wearing her 3 L O2 she wears with sleep. However she was unable to stand and ambulate due to back and hip pain so she called EMS. She is not on blood thinners. She denies fever or recent illness. [facility] <LUZ Rebolledo - Last Filed: 01/12/24 15:50> [facility] Medical History (Updated 01/12/24 @ 13:[address] Jelani Miranda MD) COPD (chronic obstructive pulmonary disease) Depression HTN (hypertension) Hyperlipemia Osteoarthritis Home Medications alendronate 70 mg tablet mg PO 01/12/24 [History Last Taken Unknown] aspirin 81 mg chewable tablet 01/12/24 [History Last Taken 01/12/24] atorvastatin 20 mg tablet mg 01/12/24 [History Last Taken 01/11/24] calcium carbonate 500 mg-vitamin D3 15 mcg (600 unit) tablet tab PO 01/12/24 [History Last Taken 01/12/24] clonidine HCl 0.1 mg tablet 0.1 mg PO BID 01/12/24 [History Last Taken Unknown] donepezil 10 mg tablet mg 01/12/24 [History Last Taken 01/11/24] fluticasone fur. 100 mcg-umeclid 62.5 mcg-vilant 25 mcg inhalat.powder (Trelegy Ellipta) 1 inh inhalation DAILY 01/12/24 [History Last Taken Unknown] fluticasone furoate 100 mcg-vilanterol 25 mcg/dose inhalation powder (Breo Ellipta) inhalation 01/12/24 [History Last Taken Unknown] lisinopril 40 mg tablet mg 01/12/24 [History Last Taken 01/12/24] montelukast 10 mg tablet mg 01/12/24 [History Last Taken 01/12/24] oxybutynin chloride 10 mg tablet,extended release 24 hr mg PO 01/12/24 [History Last Taken 01/11/24] potassium chloride 20 mEq tablet,extended release meq PO 01/12/24 [History Last Taken Unknown] primidone 50 mg tablet 50 mg PO DAILY 01/12/24 [History Last Taken Unknown] propranolol 80 mg capsule,24 hr,extended release mg PO 01/12/24 [History Last Taken Unknown] torsemide 20 mg tablet 20 mg PO DAILY 01/12/24 [History Last Taken Unknown] venlafaxine 150 mg capsule,extended release 24 hr mg PO 01/12/24 [History Last Taken Unknown] Allergy/AdvReac Type Severity Reaction Status Date / Time Penicillins Allergy Unknown NEEDS Verified 01/12/24 12:15 FOLLOW-UP Social History Smoking Status: Never smoker ROS <LUZ Rebolledo - Last Filed: 01/12/24 15:50> ROS ED ROS Narrative Constitutional: Negative for fever, chills, malaise. CVS: Negative for chest pain. Respiratory: Negative for shortness of breath, cough. GI: Negative for abdominal pain, nausea, vomiting, melena, hematochezia. : Negative for dysuria. Neuro: Negative for headache. EXAM <LUZ Rebolledo - Last Filed: 01/12/24 15:50> Physical Exam Narrative Exam Narrative: CONST: Patient sitting in no acute distress. EYES: Normal inspection. PERRL, EOMI. ENT: Head normocephalic atraumatic, no raccoon eyes or johnson sign, no hemotympanum, no nasal septal hematoma, no CSF otorrhea or rhinorrhea. NECK: Normal inspection. RESP: No respiratory distress, CTAB. Chest wall nontender. CVS: Regular rate and rhythm, no murmur, no gallop. ABD: Soft and nontender, no guarding or rebound, nondistended. Back: Normal inspection, no cervical or thoracic tenderness, tender over lower lumbar without step-offs or crepitus. SKIN: Color normal, no rash, warm, dry, intact. EXTREMITIES: Normal appearance, full ROM upper extremities, no tenderness, 2+ radial pulses. BLLE symmetric, no shortening or rotation, patient will not hip flex bilaterallydue to pain but has full passive range of motion without pain, 5/5 DF/PF strength, normal sensation, 2+ DP pulses. Pelvis stable. NEURO: Alert to self, place, age, states year is 2022 but "I do not keep up." PSYCH: Normal affect. Const Vital Signs: 01/12/24 12:07 01/12/24 15:32 Temperature 97.5 F L 98.2 F Temperature Source Temporal Pulse Rate 77 73 Respiratory Rate 16 12 Blood Pressure 141/77 H 106/70 Blood Pressure Mean 98 82 Pulse Ox 92 97 Oxygen Delivery Method Room Air <Dr. Jelani Miranda MD - Last Filed: 01/12/24 13:47> Physical Exam Const Vital Signs: 01/12/24 12:07 02/24/24 15:32 Temperature 97.5 F L 98.2 F Temperature Source Temporal Pulse Rate 77 73 Respiratory Rate 16 12 Blood Pressure 141/77 H 106/70 Blood Pressure Mean 98 82 Pulse Ox 92 97 Oxygen Delivery Method Room Air [facility] <LUZ Rebolledo - Last Filed: 01/12/24 15:50> [facility] Narrative Medical decision making narrative: History gathered from: Patient and daughter Differential: Contusion, hip or pelvic fracture Patient had mechanical fall overnight and could not get up at her assisted living facility. Today she cannot ambulate. She has no external signs of injury. She states she will not flex in either hip due to pain but has no shortening or rotation. Full passive ROM. Distally neurovascularly intact. X-rays show a nondisplaced right pubic rami fracture. Labs show white count of 16.0, hemoglobin 11.1, otherwise unremarkable. Urine is ordered. Patient cannot ambulate secondary to pelvic pain and will need admitted. Case was discussed with the hospitalist. I have personally performed a face to face assessment of the patient and have reviewed the SOPHIA Note. I performed a substantive portion of the visit including all aspects of the following. My yates findings include: History is 83-year-old female fell at assisted living complaining of pain to herright groin. Fell last night and laid on the floor throughout the night. Did not hit her head. Denies other complaints. No recent illness. No vomiting diarrhea or fever. Family is present in the room. Exam is [83-year-old female no acute distress. Vital signs stable afebrile. HEENT exam unremarkable atraumatic. Pupils round reactive light. Normal speech. Neck nontender. Back and spine nontender. No bruising. There are signs of trauma. Lungs clear to auscultation. Heart regular rhythm rate about 75 no murmur. Chest wall and ribs nontender. Abdomen soft nontender. Pelvic girdle intact right groin tenderness. She has no shortening or rotation either hip. Dorsi and plantarflexion intact. She is able to flex and extend both knees and hips. Upper extremities are nontender. Normal etymology professor strength. Neurologically she is awake and alert. Answers questions and follows commands. No focal motor deficits.] Medical Decision Making [83-year-old assisted living fell as a right superior pubic rami/pelvic bone fracture. She is unable to stand due to the discomfort. Will speak to the hospitalist about admission for pain control and/or physical therapy.] Other additions or changes: [None] Lab Data Attestation: I reviewed the patient's lab results. Labs: Laboratory Results - last 24 hr 01/12/24 12:49 WBC 16.0 H RBC 3.89 L Hgb 11.1 L Hct 35.4 L MCV 91.0 MCH 28.5 MCHC 31.4 L RDW Std Deviation 49.2 H RDW Coeff of Laura 14.7 H Plt Count 166 MPV 9.7 Immature Gran % (Auto) 0.800 Neut % (Auto) 87.3 H Lymph % (Auto) 6.6 L Dawson % (Auto) 4.7 Eos % (Auto) 0.2 Baso % (Auto) 0.4 Absolute Neuts (auto) 14.0 H Absolute Lymphs (auto) 1.05 Nucleated RBC % 0 Sodium 142 Potassium 4.3 Chloride 106 Carbon Dioxide 32.0 Anion Gap 4 L BUN 22 H Creatinine 1.05 H Estim Creat Clear Calc 39.28 Est GFR (MDRD) Af Amer 65 Est GFR (MDRD) Non-Af 53 L BUN/Creatinine Ratio 21.0 H Glucose 136 H Calcium 9.4 Radiography Diagnostic Testing: Clinical Impression(s) from Imaging Studies Chest X-Ray 01/12/24 12:36 IMPRESSION: Possible pulmonary nodule in the right midlung; recommend follow-up or CT. Electronically Signed: Erica Acevedo MD at 13:17 EST , Hip/Pelvis X-Ray 01/12/24 12:36 IMPRESSION: Nondisplaced fracture of the right pubic bone. Electronically Signed: Erica Acevedo MD at 13:19 EST , Lumbar Spine X-Ray 01/12/24 12:36 IMPRESSION: No acute fracture or dislocation identified in the lumbar spine. Multilevel degenerative change. Mild scoliosis. Electronically Signed: Erica Acevedo MD at 14:14 EST , <Dr. Jelani iMranda MD - Last Filed: 01/12/24 13:47> [facility] Narrative Medical decision making narrative: History gathered from: Patient and daughter Patient had mechanical fall overnight and could not get up at her assisted living facility. Today she cannot ambulate. She has no external signs of injury. She states she will not flex in either hip due to pain but has no shortening or rotation. Full passive ROM. Distally neurovascularly intact. X-rays show a nondisplaced right pubic rami fracture. Labs show white count of 16.0, hemoglobin 11.1, otherwise unremarkable. I have personally performed a face to face assessment of the patient and have reviewed the SOPHIA Note. I performed a substantive portion of the visit including all aspects of the following. My yates findings include: History is 83-year-old female fell at assisted living complaining of pain to her right groin. Fell last night and laid on the floor throughout the night. Did not hit her head. Denies other complaints. No recent illness. No vomiting diarrhea or fever. Family is present in the room. Exam is [83-year-old female no acute distress. Vital signs stable afebrile. HEENT exam unremarkable atraumatic. Pupils round reactive light. Normal speech. Neck nontender. Back and spine nontender. No bruising. There are signs of trauma. Lungs clear to auscultation. Heart regular rhythm rate about 75 no murmur. Chest wall and ribs nontender. Abdomen soft nontender. Pelvic girdle intact right groin tenderness. She has no shortening or rotation either hip. Dorsi and plantarflexion intact. She is able to flex and extend both knees and hips. Upper extremities are nontender. Normal etymology professor strength. Neurologically she is awake and alert. Answers questions and follows commands. No focal motor deficits.] Medical Decision Making [83-year-old assisted living fell as a right superior pubic rami/pelvic bone fracture. She is unable to stand due to the discomfort. Will speak to the hospitalist about admission for pain control and/or physical therapy.] Other additions or changes: [None] History & Record Review Discussion w/independent historian: Patient and Family Additional record(s) reviewed:: Prior inpatient record, Prior outpatient record, Prior ED visit and Prior labs Lab Data Lab results narrative: CBC white count of 16. H&H 11.1 and 35. Platelets 166. Electrolytes show a gap of 4. BUN 22 creatinine of 1. Glucose 136. Labs: Laboratory Results - last 24 hr 01/12/24 12:49 WBC 16.0 H RBC 3.89 L Hgb 11.1 L Hct 35.4 L MCV 91.0 MCH 28.5 MCHC 31.4 L RDW Std Deviation 49.2 H RDW Coeff of Laura 14.7 H Plt Count 166 MPV 9.7 Immature Gran % (Auto) 0.800 Neut % (Auto) 87.3 H Lymph % (Auto) 6.6 L Dawson % (Auto) 4.7 Eos % (Auto) 0.2 Baso % (Auto) 0.4 Absolute Neuts (auto) 14.0 H Absolute Lymphs (auto) 1.05 Nucleated RBC % 0 Sodium 142 Potassium 4.3 Chloride 106 Carbon Dioxide 32.0 Anion Gap 4 L BUN 22 H Creatinine 1.05 H Estim Creat Clear Calc 39.28 Est GFR (MDRD) Af Amer 65 Est GFR (MDRD) Non-Af 53 L BUN/Creatinine Ratio 21.0 H Glucose 136 H Calcium 9.4 Radiography Chest X-Ray - ED: 1 View, Read by ED Physician, Read by Radiologist, Heart, Lungs, Mediastinum, Bony Structures, No Acute Disease and Chronic Changes Diagnostic Testing: Clinical Impression(s) from Imaging Studies Chest X-Ray 01/12/24 12:36 IMPRESSION: Possible pulmonary nodule in the right midlung; recommend follow-up or CT. Electronically Signed: Ercia Acevedo MD at 13:17 EST , Hip/Pelvis X-Ray 01/12/24 12:36 IMPRESSION: Nondisplaced fracture of the right pubic bone. Electronically Signed: Erica Acevedo MD at 13:19 EST , Lumbar Spine X-Ray 01/12/24 12:36 IMPRESSION: No acute fracture or dislocation identified in the lumbar spine. Multilevel degenerative change. Mild scoliosis. Electronically Signed: Erica Acevedo MD at 14:14 EST , Chest x-ray, portable, single view turbulence of radiologist shows no acute abnormality. Normal cardiac silhouette. Normal lung mcdonnell. No rib fractures. Pelvis and hip x-rays 5 views. Interpreted by myself and the radiologist shows a right either superior pubic rami or pubic bone fracture. Otherwise the hips are unremarkable. 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 Discharge Plan Triage Chief Complaint: Lower Extremity Injury ED Midlevel Provider: Michaela Babcock ED Provider: Jelani Miranda Dx/Rx/DC Orders Clinical Impression: Closed fracture of single pubic ramus of pelvis, Inability to walk, Fall Prescriptions: No Action atorvastatin 20 mg tablet Patient Comments: TAKE 1 TABLET BY MOUTH ONCE DAILY donepezil 10 mg tablet Patient Comments: TAKE 1 TABLET BY MOUTH NIGHTLY aspirin 81 mg tablet,chewable Patient Comments: CHEW AND SWALLOW 1 TABLET BY MOUTH ONCE DAILY calcium carbonate-vitamin D3 500 mg-15 mcg (600 unit) tablet PO Patient Comments: TAKE 1 TABLET BY MOUTH TWICE DAILY clonidine HCl 0.1 mg tablet 0.1 mg PO BID oxybutynin chloride 10 mg tablet extended release 24hr PO Patient Comments: TAKE 1 TABLET BY MOUTH EVERY DAY alendronate 70 mg tablet PO Patient Comments: TAKE 1 TABLET NEEDED EVERY SUN {Q1W1} venlafaxine 150 mg capsule,extended release 24hr PO Patient Comments: TAKE 1 CAPSULE BY MOUTH EVERY DAY propranolol 80 mg capsule,extended release 24 hr PO Patient Comments: TAKE 1 CAPSULE BY MOUTH TWICE DAILY HOLD FOR SBP <120 montelukast 10 mg tablet Patient Comments: TAKE 1 TABLET BY MOUTH EVERY DAY lisinopril 40 mg tablet Patient Comments: TAKE 1 TABLET BY MOUTH ONCE DAILY fluticasone furoate-vilanterol [Breo Ellipta] 100-25 mcg/dose blister with device INHALATION Patient Comments: INHALE ONE (1) PUFF BY MOUTH ONCE DAILY potassium chloride 20 mEq tablet extended release PO Patient Comments: TAKE 1 TABLET BY MOUTH ONCE DAILY WITH FOOD torsemide 20 mg tablet 20 mg PO DAILY primidone 50 mg tablet 50 mg PO DAILY Trelegy Ellipta 100-62.5-25 mcg blister with device 1 inh inhalation DAILY Primary Care Provider: Darcy Clifton Referrals: Darcy Clifton MD [Primary Care Provider] - What to do if you have Problems For any increased pain, shortness of breath, bleeding, nausea or vomiting, chestpain, or any unexpected problems, contact your Primary Care Provider. Call [facility] ([phone]) or report to the closest Emergency Room. Call 911 if necessary. 01/12/24 1347 <Electronically signed by Jelani Miranda MD> Cosigner Signature (if applicable): 01/12/24 1550 <Electronically signed by Michaela ESCOBAR> CC: Darcy Clifton MD ~ Signed [facility] Work Phone: 1(296) 185-129101-05-2024 History of Present illness Narrative* Bhupendra Lamas MD - 11/23/2023 3:15 PM EST [facility] Cardiology [facility] [address] [facility] [address] Dept: [phone] Dept Visit type: Established : 1940 Chief Complaint: Chief Complaint Patient presents with Follow-up Shortness of Breath Edema History of Present Illness: Erlinda Pathak is a 83 y.o. female who [...] she is now on torsemide for diuretic. Bloodpressures have been mildly elevated. She has no [...] living when she was newly going up/down stairs.This increased activity is likely the basis for [...] Inhale 1 puff in the morning., Disp: ,Rfl: lidocaine (Lidoderm) 5 % patch, Apply 1 patch topically daily. Remove & discard patch within 12hours or as directed by MD., Disp: , [...] lb 6.4 oz (62.8 kg) Height: 5' 3" (1.6 m) Body mass index is 24.52 [...] and Plan: 1. Coronary artery disease involving [place] coronary artery of [place] heart without angina pectoris 2. Edema, unspecified [...] pressure with the staff. When she comes backin 3 months if her blood pressure remains elevated, consideration for switching from her torsemide back to hydrochlorothiazide could be made. 4. Tremor: We had stopped her combination of diltiazem and propranolol. Unfortunately with stoppingthe propranolol her tremor worsened. She is back on propranolol. I would avoid other rate lowering calcium ashley such as diltiazem or verapamil with this. documented in this [facility]12-26-2023 History of Present illness Narrative* Kayleen Prakash PA-C - 11/13/2023 9:12 AM EST Follow-up BMP ordered documented in this [facility]12-26-2023 Telephone encounter Note* Telephone Encounter - Kayleen Prakash PA-C - 11/13/2023 9:11 AM EST I called and spoke with Rachel regarding the labs that were sent over from her mom's facility. BMP andCBC appears stable. I received a phone number of [phone] to call them to order another follow-up BMP to be completed November 20. She then has follow-up with Dr. Lamas on November 23. I left a message requesting the blood work to be completed, and asking for a phone call back withany questions. [id number] Miscellaneous Notes* Telephone Encounter - Kayleen Prakash PA-C - 11/13/2023 9:11 AM EST I called and spoke with Rachel regarding the labs that were sent over from her mom's facility. BMP andCBC appears stable. I received a phone number of [phone] to call them to order another follow-up BMP to be completed November 20. She then has follow-up with Dr. Lamas on November 23. I left a message requesting the blood work to be completed, and asking for a phone call back withany questions. documented in this [facility]09-05-2023 Note* Addendum Note - Julio Ray RN - 07/24/2023 2:54 PM EDTAddended by: JULIO RAY on: 07/24/2023 02:54 PM Modules accepted: Orders [id number] Note* Addendum Note - Julio Ray RN - 07/24/2023 2:54 PM EDTAddended by: JULIO RAY on: 07/24/2023 02:54 PM Modules accepted: Orders [id number] Miscellaneous Notes* Addendum Note - Julio Ray RN - 07/24/2023 2:54 PM EDTAddended by: JULIO RAY on: 07/24/2023 02:54 PM Modules accepted: Orders * Telephone Encounter - Julio Ray RN - 07/24/2023 2:51 PM EDT Spoke to Rosie with [facility]. Gave verbal order for Propranolol 80 mg BID and Amlodipine 5 mg daily. Stop Diltiazem. She will hand write order and mail it to our office for Dr. Lamas to sign. MAR updated. * Telephone Encounter - Jovita Boo - 07/24/2023 1:40 PM EDT Rosie from the [place] office is returning your call. Please call her back at [phone] * Telephone Encounter - Juana Waters RN - 07/20/2023 4:10 PM EDT Call and left message for pt's nurse to please call the office back for new orders from Dr. Lamas regarding the pts increased tremors. * Telephone Encounter - Julio Ray RN - 07/19/2023 2:22 PM EDT Spoke to Rosie at [facility]. She states pt tremors have been getting worse. Rosie states pt is having a hard time putting her make up on. Per Dr. Lamas note from 06/11/23 if pt tremors get worse he will resume the Propranolol, stop the Diltiazem and add Amlodipine. Will review with JDR and call facility back with instructions. * Telephone Encounter - Julio Ray RN - 07/19/2023 1:05 PM EDT LM on VM for Rosie to call office. * Telephone Encounter - Jovita Boo - 07/19/2023 12:31 PM EDT Please call Rosie about PT having tremors. documented in this encounterSBellevue [id number] Telephone encounter Note* Telephone Encounter - Julio Ray RN - 07/24/2023 2:51 PM EDT Spoke to Rosie with [facility]. Gave verbal order for Propranolol 80 mg BID and Amlodipine 5 mg daily. Stop Diltiazem. She will hand write order and mail it to our office for Dr. Lamas to sign. MAR updated. [facility] [id number] Telephone encounter Note* Telephone Encounter - Jovita Boo - 07/24/2023 1:40 PM EDT Rosie from the [place] office is returning your call. Please call her back at [phone] [facility] HospitalJufbmr25-04-1446 Telephone encounter Note* Telephone Encounter - Juana Waters RN - 07/20/2023 4:10 PM EDT Call and left message for pt's nurse to please call the office back for new orders from Dr. Lamas regarding the pts increased tremors. [facility] [id number] Telephone encounter Note* Telephone Encounter - Julio Ray RN - 07/19/2023 2:22 PM EDT Spoke to Rosie at [facility]. She states pt tremors have been getting worse. Rosie states pt is having a hard time putting her make up on. Per Dr. Lamas note from 06/11/23 if pt tremors get worse he will resume the Propranolol, stop the Diltiazem and add Amlodipine. Will review with JDR and call facility back with instructions. [facility] [id number] Telephone encounter Note* Telephone Encounter - Julio Ray RN - 07/19/2023 1:05 PM EDT LM on VM for Rosie to call office. [facility] [id number] Telephone encounter Note* Telephone Encounter - Jovita Boo - 07/19/2023 12:31 PM EDT Please call Rosie about PT having tremors. [facility] HospitalMkceix39-56-0623 Telephone encounter Note* Telephone Encounter - CHUY Hudson CNP - 07/16/2023 2:28 PM EDT Rx sent to pharmacy. [place] [id number] Miscellaneous Notes* Telephone Encounter - CHUY Hudson CNP - 07/16/2023 2:28 PM EDT Rx sent to pharmacy. * Telephone Encounter - Marely Damon - 07/13/2023 4:09 PM EDT Name of caller: Maria L Contact phone number: [phone] Relationship to Patient: From [facility] Provider: Jessica Quezada Practice: Senior Services Chief Complaint/Reason for Call: Maria L called Xiomara back asking if the medication can be sent to Skilled care, fax number [phone] Best time of day caller can be reached: Any Patient advised that office/PCP has 24-48 business hours to return their call: Yes * Telephone Encounter - Xiomara Carty - 07/13/2023 3:23 PM EDT Left message on Nurses Line requesting clarification as to which pharmacy this medication needs sent to. * Telephone Encounter - CHUY Hudson CNP - 07/13/2023 2:58 PM EDT Noted. That prescription was a refill for the donepezil, not a duplicate. Daughter wasn't sure whatpharmacy I should send refill to. * Telephone Encounter - Tomeka Hudson MA - 07/13/2023 1:52 PM EDT Name of caller: Rosie from [facility] Contact phone number: [phone] Relationship to Patient: Rosie from [facility] Provider: Jessica Quezada Practice: Senior Services Chief Complaint/Reason for Call: Rosie from [facility] living stated that the patient was already on the medication donepezil (Aricept) 10 MG tablet. Please advise. Best time of day caller can be reached: any Patient advised that office/PCP has 24-48 business hours to return their call: No documented in this encounterSBellevue HospitalMayvbj62-41-5422 Telephone encounter Note* Telephone Encounter - Marely Damon - 07/13/2023 4:09 PM EDT Name of caller: Maria L Contact phone number: [phone] Relationship to Patient: From [facility] Provider: Jessica Quezada Practice: Senior Services Chief Complaint/Reason for Call: Maria L called Xiomara back asking if the medication can be sent to Skilled care, fax number [phone] Best time of day caller can be reached: Any Patient advised that office/PCP has 24-48 business hours to return their call: Yes [facility] [id number] Telephone encounter Note* Telephone Encounter - Xiomara Carty - 07/13/2023 3:23 PM EDT Left message on Nurses Line requesting clarification as to which pharmacy this medication needs sent to. [place] [id number] Telephone encounter Note* Telephone Encounter - CHUY Hudson CNP - 07/13/2023 2:58 PM EDT Noted. That prescription was a refill for the donepezil, not a duplicate. Daughter wasn't sure whatpharmacy I should send refill to. [id number] Telephone encounter Note* Telephone Encounter - Tomeka Hudson MA - 07/13/2023 1:52 PM EDT Name of caller: Rosie from [facility] Contact phone number: [phone] Relationship to Patient: Rosie from [facility] Provider: Jessica Quezada Practice: Senior Services Chief Complaint/Reason for Call: Rosie from [facility] stated that the patient was already on the medication donepezil (Aricept) 10 MG tablet. Please advise. Best time of day caller can be reached: any Patient advised that office/PCP has 24-48 business hours to return their call: No [place] [id number] Emergency department Note* Maureen Bruno - 03/06/2023 12:54 PM EDT Post op shoe placed on left foot. MSP's intact before and after application. Pt tolerated well. Maureen Bruno 03/06/23 1254 [id number] Emergency department Note* Maureen Bruno - 03/06/2023 12:54 PM EDT Post op shoe placed on left foot. MSP's intact before and after application. Pt tolerated well. Maureen Bruno 03/06/23 1254 documented in this [facility]02-28-2023 Miscellaneous Notes* Result Encounter Note - Kayleen Prakash PA-C - 01/16/2023 11:30 AM EST Can you please let the patient know that stress test was ok. No evidence of poor blood flow to the heart muscle. Suggested low risk of cardiac events. Thanks documented in this [facility]02-28-2023 Progress note* Result Encounter Note - Kayleen Prakash PA-C - 01/16/2023 11:30 AM EST Can you please let the patient know that stress test was ok. No evidence of poor blood flow to the heart muscle. Suggested low risk of cardiac events. Thanks AchaLa Phone: 1([phone]) 344-892902-27-2023 Nurse Note* Jessica Bryant RN - 01/15/2023 11:27 AM EST Spoke with patient's daughter and reviewed instructions for tomorrow's scheduled nuclear stress test with understanding verbalized. Any questions were answered to her satisfaction. [facility] [id number] Nurse Note* Jessica Bryant RN - 01/15/2023 11:27 AM EST Spoke with patient's daughter and reviewed instructions for tomorrow's scheduled nuclear stress test with understanding verbalized. Any questions were answered to her satisfaction. documented in this [facility] [id number] Telephone encounter Note* [facility] - 01/12/2023 11:21 AM EST Service has been Approved- Valid for 45 days Expires 02/26/23 Auth # [id number] [facility] [id number] Miscellaneous Notes* Telephone Encounter - [facility] - 01/12/2023 11:21 AM EST Service has been Approved- Valid for 45 days Expires 02/26/23 Auth # [id number] documented in this [facility] [id number] History of Present illness Narrative* Tessa Carmona MA - 01/09/2023 2:30 PM EST ekg * Kayleen Prakash PA-C - 01/09/2023 2:30 PM EST [facility] Card[facility] Note DATE of SERVICE:01/09/23 TIME of SERVICE: 3:16 PM Chief Complaint: Chief Complaint Patient presents with Follow-up History of PresentIllness: Erlinda Pathak is a 82 y.o. female known to Dr. Adams with a history of coronary artery disease, stenting to the LAD in 2017, hypertension, hyperlipidemia, and COPD. She was added to office today as an urgent request for recurrent chest pain. She does have dementia and lives with her sister. Her d aughter apparently had just heard of the episodes of chest pain, and scheduled this appointment. Apparently the episodes have occurred since Sunday. It is very difficult to get a clear story from thepatient. She describes the pain as both heavy and sharp. It can come on with activity and or rest. There does not seem to be any associated symptoms. She is unable to clearly say how long the symptoms last. They have occurred 3 out of the last 4 days. I had a discussion with the patient and her daughter regarding their preference for evaluation and treatment. She is alert and oriented to person and place, not to time. After discussing potentially adding medications to try and control symptoms versus performing a stress test with possible need for heart catheterization and PCI if abnormal, they both opted for the more aggressive approach of an ischemic evaluation and treatment if indicated. They feel that she is still active and enjoying lifeat this time. Past Medical History: Past Medical History: Diagnosis Date Alzheimer's disease (HCC) Anemia Atrial fibrillation (CMS/HCC) (HCC) Benign essential tremor 07/05/2018 CAD (coronary artery disease) COPD (chronic obstructive pulmonary disease) (HCC) Frequent UTI Heart murmur, systolic 12/31/2020 HTN (hypertension) Hyperlipidemia Palpitations 12/31/2020 Developed when she moved to a house out of assisted living when she was newly going up/down stairs.This increased activity is likely the basis for [...] Types: Cigarettes Quit date: 11/19/2000 Years since quittin.1 Smokeless tobacco: Never Substance Use Topics Alcohol [...] mouth in the morning., Disp: , Rfl: dilTIAZem ER (Tiazac) 360 MG 24 hr capsule, Take 1 capsule by mouth in the morning., Disp: , Rfl: fluticasone-vilanterol (BREO ELIPTA) 100-25 MCG/INH inhaler, Inhale 1 puff in the morning., Disp: ,Rfl: hydroCHLOROthiazide (Microzide) 12.5 MG capsule, Take 12.5 mg by mouth in the morning., Disp: , Rfl: lisinopril 40 MG tablet, Take 1 tablet by mouth in the morning., Disp: , Rfl: montelukast (Singulair) 10 MG tablet, Take 10 mg by mouth Nightly., Disp: , Rfl: oxybutynin (Ditropan) 5 MG tablet, Take 5 mg by mouth in the morning., Disp: , Rfl: potassium chloride CR (Klor-Con M20) 20 MEQ ER tablet, Take 1 tablet by mouth in the morning., Disp: , Rfl: propranolol XL (Innopran XL) 80 MG 24 hr capsule, Take 1 capsule by mouth in the morning and 1 capsule before bedtime., Disp: , Rfl: umeclidinium (Incruse Ellipta) 62.5 MCG/INH inhalation, Inhale 1 puff in the morning., Disp: , Rfl: donepezil (Aricept) 10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 Cephalexin Rash Current Outpatient Medications Medication Sig Dispense Refill alendronate (Fosamax) 70 MG tablet Take 70 mg by mouth every 7 days. aspirin 81 MG EC tablet Take 1 tablet by mouth in the morning. atorvastatin (Lipitor) 20 MG tablet Take 20 mg by mouth in the morning. dilTIAZem ER (Tiazac) 360 MG 24 hr capsule Take 1 capsule by mouth in the morning. fluticasone-vilanterol (BREO ELIPTA) 100-25 MCG/INH inhaler Inhale 1 puff in the morning. hydroCHLOROthiazide (Microzide) 12.5 MG capsule Take 12.5 mg by mouth in the morning. lisinopril 40 MG tablet Take 1 tablet by mouth in the morning. montelukast (Singulair) 10 MG tablet Take 10 mg by mouth Nightly. oxybutynin (Ditropan) 5 MG tablet Take 5 mg by mouth in the morning. potassium chloride CR (Klor-Con M20) 20 MEQ ER tablet Take 1 tablet by mouth in the morning. propranolol XL (Innopran XL) 80 MG 24 hr capsule Take 1 capsule by mouth in the morning and 1 capsule before bedtime. umeclidinium (Incruse Ellipta) 62.5 MCG/INH inhalation Inhale 1 puff in the morning. venlafaxine XR (Effexor XR) 150 MG 24 hr capsule Take 150 mg by mouth in the morning. donepezil (Aricept) 10 MG tablet Take 1 tablet (10 mg) by mouth Nightly. 90 tablet 1 No current facility-administered medications for this visit. Past Medical History: Diagnosis Date Alzheimer's disease (HCC) Anemia Atrial fibrillation (CMS/HCC) (HCC) Benign essential tremor 07/05/2018 CAD (coronary artery disease) COPD (chronic obstructive pulmonary disease) ([facility]) Frequent UTI Heart murmur, systolic 12/31/2020 HTN (hypertension) Hyperlipidemia Palpitations 12/31/2020 Developed when she moved to a house out of assisted living when she was newly going up/down stairs.This increased activity is likely the basis for those Sxs. S/P drug eluting coronary stent placement 12/31/2020 Last cardiac catheterization: 04/06/2017. PCI. LAD, 80%, stented with KASI Synergy 3 x 12 mm. Ejection fraction 60%. EDP 20 mmHg. (No report available about other coronaries). Social History Tobacco Use Smoking status: Former Types: Cigarettes Quit date: 11/19/2000 Years since quittin.0 Smokeless tobacco: Never Substance Use Topics Alcohol use: Yes Comment: occ Past Surgical History: Procedure Laterality Date ABDOMINAL SURGERY BREAST SURGERY CARDIAC PROCEDURE CARDIAC SURGERY CORONARY ANGIOPLASTY CORONARY ANGIOPLASTY WITH STENT PLACEMENT HYSTERECTOMY JOINT REPLACEMENT Left 05/01/2018 partial left hip replacement NEPHROSTOMY ORTHOPEDIC SURGERY Left 05/01/2018 Left Hip Hemiarthroplasty SMALL INTESTINE SURGERY removal due to small bowel obstruction Family History Problem Relation Name Age of Onset Cancer Mother Prostate cancer Father Family Status Relation Name Status Mother Father Brother Alive Sister Alive Objective Vitals: 12/15/22 1347 BP: 136/85 BP Location: Right arm Patient Position: Sitting Temp: 36 C (96.8 F) Weight: 125 lb 12.8 oz (57.1 kg) Wt Readings from Last 3 Encounters: 12/15/22 125 lb 12.8 oz (57.1 kg) 09/28/22 124 lb 9.6 oz (56.5 kg) 07/07/22 124 lb 8 oz (56.5 kg) Physical Exam Constitutional: General: She is not in acute distress. Appearance: She is not ill-appearing. Comments: Elderly, petite female. Pleasant and cooperative. Well kempt. HENT: Head: Normocephalic. Comments: No glasses. No hearing aids. Right Ear: External ear normal. Left Ear: External ear normal. Cardiovascular: Rate and Rhythm: Normal rate and regular rhythm. Heart sounds: Normal heart sounds. No murmur heard. Pulmonary: Effort: Pulmonary effort is normal. No respiratory distress. Breath sounds: Normal breath sounds. Abdominal: General: Abdomen is flat. Palpations: Abdomen is soft. Tenderness: There is no abdominal tenderness. Musculoskeletal: General: No swelling (BLE). Comments: Muscle strength 4/5 BLE Skin: General: Skin is warm and dry. Neurological: General: No focal deficit present. Comments: Alert and oriented x 2 (to self and place). Doesn't know 911. Knows President but not COVID. Speech is clear and appropriate. Follows commands. Tremor in neck- stable from previous visits. No tremors in BUE at rest or with intention. No cogwheeling rigidity. Psychiatric: Comments: Normal affect and behavior. Data Reviewed and Summarized Testing: The following tests were performed at today's visit and scanned in to thechart: MoCA score: 14, MIS score: 4 Clock drawing score: 2 PHQ-9 score: 0 I independently reviewed the [place] Cognitive Assessment from 12/15/2022. Test scanned in to the chart. I spent total time of 53 minutes face to face with the patient and/or family discussing the diagnosis and importance of compliance with the treatment plan as well as documenting on the day of the visit. In addition, that total time includes the following: -Reviewing previous notes, -Reviewing previous cognitive tests, -Obtaining and/or reviewing separately obtained history, -Ordering prescription medications, tests and procedures, -Communicating results to the patient/family/caregiver, -Counseling/educating the patient/family/caregiver, -Documentingclinical information in the patients electronic record, - Coordination of care for the patient, and -Performing a medically appropriate exam and/or evaluation documented in this [facility]01-27-2023 Instructions* Patient Instructions* CHUY Hudson CNP - 12/15/2022 1:45 PM EST Ms. Pathak was seen today for memory. Memory testing today was down 1 point compared to last visit. Small decline. Mild stage, can be stable for long periods of time. Recommend continuing Aricept (donepezil) to help slow down memory loss. Refill sent to pharmacy today. Continue going to [employer] for social engagement.This is good for both your mood and your memory. Avoiding medications that cause confusion and falls - Tylenol PM, Benadryl Recommend physical, mental, and social activity - [facility], Silver Sneakers. Recommend routines, schedules, and organization. Recommend getting adequate sleep and eating balanced diet. Continue regular visits with primary care provider to maintain chronic health conditions. 5 M s - assistance with medications, medical care, meals, money, mobility (driving, falls). Follow-up visit in 6 months for repeat memory testing/routine visit. documented in this [facility]01-17-2023 Note. MICRO - Microbiology PROCEDURE: Urine Culture [*1] [...] Locations *1: This test was performed at: [address], [facility] [place]05-13-2022 Hospital Discharge instructions* Instructions* Da Cooper PA-C - 05/13/[address] scan [...] your doctor or return to the ED. * Attachments The following attachments cannot be sent through Care Everywhere. * Head Injury: Closed: General Info ([place]) * Rib Fracture ([place]) documented in this [facility] Work Phone: Evaluation + Plan note Future Appointments Appointment Date:06/01/2023 01:30:00 PM Scheduled Provider:GARFIELD KIDD DO Location:[facility] Appointment Type: OV Follow Up Future Scheduled Tests Laboratory* Thyroid Stimulating Hormone 05/26/22 * Complete Blood Count 05/26/22 * Vitamin D Level 05/26/22 * Complete Metabolic Panel 05/26/22 [facility] Evaluation note* Diagnosis Closed head injury, initial encounter- Primary Closed fracture of one rib of right side, initial encounter Fall, initial encounter documented in this encounter [facility] Work Phone: Evaluation note* Diagnosis Closed nondisplaced fracture of proximal phalanx of lesser toe of left foot, initial encounter- Primary Fall, initial encounter documented in this encounter [facility] TeracentEvaluation noteNo assessment information availableWLicking Memorial Hospital Work Phone: Evaluation note* Diagnosis Edema, unspecified type- Primary Essential hypertension Unspecified essential hypertension documented in this encounter [facility] TeracentEvaluation note* Diagnosis Coronary artery disease involving [place] coronary artery of [place] heart without angina pectoris- Primary Edema, unspecified type Essential hypertension Unspecified essential hypertension documented in this encounter [facility] [employer] note* Diagnosis Coronary artery disease involving [place] coronary artery of [place] heart without angina pectoris Edema, unspecified type documented in this encounter [facility] TeracentEvaluation note* Diagnosis Onset Date Resolution Status MOUSTAPHA (acute kidney injury) ac [place] Closed fracture of single pubic ramus of pelvis acute Fall acute Inability to walk acute COPD (chronic obstructive pulmonary disease) chronic [facility] Work Phone: Evaluation note* Diagnosis Onset Date Resolution Status MOUSTAPHA (acute kidney injury) re solved Acute blood loss anemia acut e Allergic rhinitis acute Alzheimer disease acute Debility acute Depression acute Gastric ulcer acute Hyperlipemia acute Hypokalemia acute Osteoarthritis acute Osteoporosis acute Overactive bladder acute Pelvis fracture, right acute Tremor acute Upper GI bleed acute HTN (hypertension) chronic [facility] Work Phone: Evaluation note* Diagnosis Onset Date Resolution Status MOUSTAPHA (acute kidney injury) re solved Allergic rhinitis acute Alzheimer disease acute Debility acute Depression acute Hyperlipemia acute Hypokalemia acute Osteoarthritis acute Osteoporosis acute Overactive bladder acute Pelvis fracture, right acute Tremor acute HTN (hypertension) chronic Acute blood loss anemia reso lved Gastric ulcer resolved Upper GI bleed resolved Anemia acute GI bleed acute Thrombocytopenia acute [facility] Work Phone: Evaluation note* Diagnosis Coronary artery disease involving [place] coronary artery of [place] heart without angina pectoris- Primary documented in this encounter [facility] TeracentEvaluation note* Diagnosis 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 behavioral disturbance, psychotic disturbance, mood disturbance, or anxiety (HCC)- Primary Impaired gait and mobility [facility] Diagnosis Essential hypertension- Primary Unspecified essential hypertension Coronary artery disease involving [place] coronary artery of [place] heart without angina pectoris Mixed hyperlipidemia [facility] Diagnosis Mild late onset Alzheimer's dementia without behavioral disturbance, psychotic disturbance, mood disturbance, or anxiety (HCC)- Primary 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) [facility]* Diagnosis Mild late onset Alzheimer's dementia without behavioral disturbance, psychotic disturbance, mood disturbance, or anxiety (HCC) [facility]* Diagnosis Mild late onset Alzheimer's dementia without behavioral disturbance, psychotic disturbance, mood disturbance, or anxiety (HCC) [facility]* Diagnosis Resistant hypertension- Primary Coronary artery disease involving [place] coronary artery of [place] heart without angina pectoris Aortic valve sclerosis Aortic valve disorders Other chest pain [facility]* Diagnosis Coronary artery disease involving [place] coronary artery of [place] heart without angina pectoris Other chest pain [facility]* Diagnosis Coronary artery disease involving [place] coronary artery of [place] heart without angina pectoris- Primary Pure hypercholesterolemia Resistant hypertension Aortic valve sclerosis Aortic valve disorders 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 behavioral disturbance, psychotic disturbance, mood disturbance, or anxiety (HCC)- Primary Skin lesion of face Unspecified disorder of skin and subcutaneous tissue [facility]* Diagnosis Coronary artery disease involving [place] coronary artery of [place] heart without angina pectoris- Primary Pure hypercholesterolemia Resistant hypertension Aortic valve sclerosis Aortic valve disorders Coronary artery disease involving [place] coronary artery of [place] heart without angina pectoris- Primary Primary hypertension Unspecified essential hypertension [facility]* Diagnosis Coronary artery disease involving [place] coronary artery of [place] heart without angina pectoris- Primary Pure hypercholesterolemia Resistant hypertension Aortic valve sclerosis Aortic valve disorders Coronary artery disease involving [place] coronary artery of [place] heart without angina pectoris- Primary Primary hypertension Unspecified essential hypertension [facility]* Diagnosis Coronary artery disease involving [place] coronary artery of [place] heart without angina pectoris- Primary Pure hypercholesterolemia Resistant hypertension Aortic valve sclerosis Aortic valve disorders Primary hypertension- Primary Unspecified essential hypertension [facility]* Diagnosis Coronary artery disease involving [place] coronary artery of [place] heart without angina pectoris- Primary Pure hypercholesterolemia Resistant hypertension Aortic valve sclerosis Aortic valve disorders Primary hypertension Unspecified essential hypertension [facility]* Diagnosis Coronary artery disease involving [place] coronary artery of [place] heart without angina pectoris- Primary Pure hypercholesterolemia Resistant hypertension Aortic valve sclerosis Aortic valve disorders 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 behavioral disturbance, psychotic disturbance, mood disturbance, or anxiety (HCC)- Primary [facility]* Diagnosis Coronary artery disease involving [place] coronary artery of [place] heart without angina pectoris- Primary Pure hypercholesterolemia Resistant hypertension Aortic valve sclerosis Aortic valve disorders 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 behavioral disturbance, psychotic disturbance, mood disturbance, or anxiety (HCC)- Primary Coronary artery disease involving [place] coronary artery of [place] heart without angina pectoris- Primary Primary hypertension Unspecified essential hypertension documented [facility] this [facility] Author Amanda Jeter [facility] January 12, 2024 4:39pm Note Date/Time January 12, 2024 4:25pm [facility] Medical Records Department [address] [place] [id number] H&P Exam - Hospitalist 01/12/24 1623 MR#: [id number] Acct: [id number] Name: ERLINDA PATHAK Rep #:[id number] : 1940 83 From: Amanda Jeter MD PCP: Darcy Clifton MD Status:ADM IN Location: [facility] [id number] HPI - General General Date of Admission: 01/12/24 Date of Service: 01/12/24 Chief Complaint: Fall with R hip pain HPI Narrative ERLINDA PATHAK, is a 83-year-old female history of depression, COPD, dementia, hypertension who presented to [facility] ED 01/12/2024 after a fall at her assisted living facility. She tripped last night while walking in the living room and landed on her buttocks and back with no head injury or loss of consciousness. She was unable to get back into bed so nurse came in to help her at 630 this morning but she was unable to stand and ambulate due to back andhip pain so EMS was called. Patient found to have nondisplaced fracture of right pubic bone, WBC of 16, and a slight bump in BUN/CR. Given pt unable to ambulate hospitalist contacted for admission for pain control and PT/OT. Pt evaluated at bedside with family members present, patient does not really remember what happened with her fall last night or why she fell but does endorsethat she remained on the floor for period of time until this morning, has had the right-sided hip/pubic pain but denies any other acute or focal complaints. Family at bedside endorsed that she has some chronic right knee pain that at times makes it difficult to walk and they suspect that this contributed to her fall. At present reports as long she is at rest she is not having any significant pain and it is primarily present when she moves. Additionally discussed CODE STATUS with patient and family, patient initially said she would want everything done but family reminded her that that was not consistent with her previous wishes and that she is in fact DNR/DNI and after this was mentionedpatient agreed that that was indeed the case. [facility] Medical History (Updated 01/12/24 @ 16:[address] Amanda Jeter MD) COPD (chronic obstructive pulmonary disease) Depression HTN (hypertension) Hyperlipemia Osteoarthritis Home Medications alendronate 70 mg tablet mg PO 01/12/24 [History Last Taken Unknown] aspirin 81 mg chewable tablet 01/12/24 [History Last Taken 01/12/24] atorvastatin 20 mg tablet mg 01/12/24 [History Last Taken 01/11/24] calcium carbonate 500 mg-vitamin D3 15 mcg (600 unit) tablet tab PO 01/12/24 [History Last Taken 01/12/24] clonidine HCl 0.1 mg tablet 0.1 mg PO BID 01/12/24 [History Last Taken Unknown] donepezil 10 mg tablet mg 01/12/24 [History Last Taken 01/11/24] fluticasone fur. 100 mcg-umeclid 62.5 mcg-vilant 25 mcg inhalat.powder (Trelegy Ellipta) 1 inh inhalation DAILY 01/12/24 [History Last Taken Unknown] fluticasone furoate 100 mcg-vilanterol 25 mcg/dose inhalation powder (Breo Ellipta) inhalation 01/12/24 [History Last Taken Unknown] lisinopril 40 mg tablet mg 01/12/24 [History Last Taken 01/12/24] montelukast 10 mg tablet mg 01/12/24 [History Last Taken 01/12/24] oxybutynin chloride 10 mg tablet,extended release 24 hr mg PO 01/12/24 [History Last Taken 01/11/24] potassium chloride 20 mEq tablet,extended release meq PO 01/12/24 [History Last Taken Unknown] primidone 50 mg tablet 50 mg PO DAILY 01/12/24 [History Last Taken Unknown] propranolol 80 mg capsule,24 hr,extended release mg PO 01/12/24 [History Last Taken Unknown] torsemide 20 mg tablet 20 mg PO DAILY 01/12/24 [History Last Taken Unknown] venlafaxine 150 mg capsule,extended release 24 hr mg PO 01/12/24 [History Last Taken Unknown] Allergy/AdvReac Type Severity Reaction Status Date / Time Penicillins Allergy Unknown NEEDS Verified 01/12/24 12:15 FOLLOW-UP Social History Smoking Status: Never smoker ROS ROS Narrative General: Denies fever/chills HENT: Denies headache, denies stuffy nose, denies sore throat EYES: Denies changes in vision Resp: Denies cough, denies shortness of breath Cardiac: Denies chest pain GI: Denies abdominal pain, denies changes in bowel, denies nausea/vomiting : Denies changes in urination Extremity: Denies swelling MSK: Denies weakness, has some pain on right hip Neuro: Denies any numbness/tingling Heme: Denies any bleeding or bruising Skin: Denies rashes Psychiatric: No complaints voiced Vital Signs Vital Signs Vital Signs: 01/12/24 12:07 01/12/24 15:32 Temperature 97.5 F L 98.2 F Temperature Source Temporal Pulse Rate 77 73 Respiratory Rate 16 12 Blood Pressure 141/77 H 106/70 Blood Pressure Mean 98 82 Pulse Ox 92 97 Oxygen Delivery Method Room Air Weight Weight: 66 kg Body Mass Index (BMI) 25.0 Physical Exam Narrative General: Alert, no apparent distress HEENT: Atraumatic, normocephalic Eyes: Anicteric, normal conjunctiva, extraocular movements grossly intact Neck: Supple Respiratory: Clear to auscultation bilaterally, normal respiratory effort Cardiovascular: Regular rate and rhythm GI: Soft, nontender, nondistended Extremities: No edema Musculoskeletal: Moving all extremities, right knee is bigger than left knee with chronic OA, not tender to palpation Neuro: No overt focal neurological deficits Skin: No rashes appreciated Psych: Cooperative Results Lab / Micro Data 01/12/24 12:49 01/12/24 12:49 Labs: Laboratory Results - last 24 hr 01/12/24 12:49: WBC 16.0 H, RBC 3.89 L, Hgb 11.1 L, Hct 35.4 L, MCV 91.0, MCH 28.5, MCHC 31.4 L, RDW Std Deviation 49.2 H, RDW Coeff of Laura 14.7 H, Plt Count 166, MPV 9.7, Immature Gran % (Auto) 0.800, Neut % (Auto) 87.3 H, Lymph % (Auto)6.6 L, Dawson % (Auto) 4.7, Eos % (Auto) 0.2, Baso % (Auto) 0.4, Absolute Neuts (auto) 14.0 H, Absolute Lymphs (auto) 1.05, Nucleated RBC % 0, Sodium 142, Potassium 4.3, Chloride 106, Carbon Dioxide 32.0, Anion Gap 4 L, BUN 22 H, Creatinine 1.05 H, Estim Creat Clear Calc 39.28, Est GFR (MDRD) Af Amer 65, Est GFR (MDRD) Non-Af 53 L, BUN/Creatinine Ratio 21.0 H, Glucose 136 H, Calcium 9.4 Imaging Radiology Impression Chest X-Ray 01/12/24 12:36 IMPRESSION: Possible pulmonary nodule in the right midlung; recommend follow-up or CT. Electronically Signed: Erica Acevedo MD at 13:17 EST , Hip/Pelvis X-Ray 01/12/24 12:36 IMPRESSION: Nondisplaced fracture of the right pubic bone. Electronically Signed: Erica Acevedo MD at 13:19 EST , Lumbar Spine X-Ray 01/12/24 12:36 IMPRESSION: No acute fracture or dislocation identified in the lumbar spine. Multilevel degenerative change. Mild scoliosis. Electronically Signed: Erica Acevedo MD at 14:14 EST , Assessment & Plan Assessment/Plan (1) Closed fracture of single pubic ramus of pelvis: (2) Fall: (3) MOUSTAPHA (acute kidney injury): (4) COPD (chronic obstructive pulmonary disease): PLAN: Plan #Nondisplaced fracture of right pubic bone -Seen on xray -Schedule tylenol -Pain control -Supportive care -PT/OT -Case management consult #MOUSTAPHA -BUN 22 with creatinine 1.05, baseline 0.6-0.7 -Gentle IVF -Hold lisinopril and torsemide -Daily weights, I's and O's -Given patient was down overnight will check CK #Leukocytosis -Pt denies any focal complaints but somewhat poor historian -UA pending -No other focal concerns for infxn # Possible pulmonary nodule -Chest x-ray questioned 8 mm nodule opacity in right midlung and recommended follow up or CT -Can have repeat imaging on d/c if pt/family would like further eval #Hypertension -Presently normotensive, given bump in creatinine we will hold lisinopril -Awaiting med rec completion for further adjustments # COPD -Continue home inhalers #MCI -Continue donepezil -Schedule melatonin qhs # Depression -Venlafaxine, will continue #DVT ppx: lovenox sub q Amanda Jeter MD Time spent in the patient's overall evaluation,decision-making process, review of diagnostic data, adjustment of management, discussion with other providers, nursing nursing and ancillary staff involved in patient's care documentation, 57Minutes Charges/Coding Visit Charges Inpatient E&M: 52167 Init Hosp L2 01/12/24 1639 <Electronically signed by Amanda Jeter MD> Cosigner Signature (if applicable): CC: Dr. Amanda Jeter MD; Darcy Clifton MD~ Signed [facility] Work Phone: Hospital course Narrative No data available for this section [facility] Discharge instructions No data available for this section [facility] Discharge instructions* Attachments The following attachments cannot be sent through Care Everywhere. * Toe Fracture Discharge Instructions ([place]) [facility] Additional Instructions Discharge 02/02/2024 to SNF, intermediate, part B therapies. Resident has Alzheimer Disease, on treatment with Donepezil 10mg daily.[facility] Work Phone: Progress note No data available for this section [facility] [place] for referral (narrative)No reason for referral information availableWLicking Memorial Hospital Work Phone: Reason for visit Narrative* Imaging (Routine) - Closed Specialty Diagnoses / Procedures Referred By Contac t Referred To Contact Cardiology Diagnoses Primary hypertension Procedures Vascular US renal artery duplex complete Kayleen Prakash PA-C [address] [place] [address] [address] [place] [address] Phone: tel: fax: Referral ID Status Reason Start Date Expiration Date Visits Re quested Visits Authorized [id number] Closed 03/18/2025 03/18/2026 1 1 [facility] Summary Purpose Family History No Family History Records Found Relationship Condition Age at Onset Recorded Date/T marita mother Malignant neoplasm Unknown father Malignant neoplasm Unknown Hypertension Unknown Advance Directives No Advanced Directives Records FoundDocuments on File Type Date Recorded 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 Advance Directives and Living Will Advance Directives and Living Will 04/28/2019 9:59 AM DNRCCA [id number] [place] carroll Power of Machine Burrer Latest Code Status on File Code Status Date Activated Date Inactivated Comments DNR-CCA 04/25/2019 1:50 PM Full Code 05/01/2018 6:23 AM 05/04/2018 4:40 PM Documents on File Type Date Recorded 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 ACP-Advance Directive ACP-Advance Directive 04/28/2019 9:59 AM D NRCCA [id number] Kierra ACP-Power of Machine Burrer Latest Code Status on File Code Status Date Activated Date Inactivated Comments DNR-CCA 04/25/2019 1:50 PM 11/21/2020 12:07 PM Documents on File Type Date Recorded 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 ACP-Advance Directive ACP-Advance Directive 04/28/2019 9:59 AM D NRCCA [id number] Kayani ACP-Power of Machine Burrer Latest Code Status on File Code Status Date Activated Date Inactivated Comments DNR-CCA 04/25/2019 1:50 PM 11/21/2020 12:07 PM Full Code 05/01/2018 6:23 AM 05/04/2018 4:40 PM Documents on File Type Date Recorded 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 ACP-Advance Directive ACP-Power of Machine Burrer ACP-Advance Directive 04/28/2019 9:59 AM D NRCCA [id number] Kayani Documents on File Type Date Recorded 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 ACP-Advance Directive 04/28/2019 9:59 AM D NRCCA [id number] Kayani Advance Directive Response Recorded Date/ Time Living Will No January 12 12:23pm Power of Machine Burrer No January 12, 2024 12:23pm Advance Directive Response Recorded Date/ Time Living Will No January 12 6:00pm Power of Machine Burrer No January 12, 2024 6:00pm Advance Directive Response Recorded Date/ Time Name of Medical Power of Machine Burrer Latrice Rachel Alfaro, and Dixon Lawler February 01, 2024 9:33pm Living Will No February 01, 2024 9:33pm Power of Machine Burrer Yes January 31 9:33pm Advance Directive Response Recorded Date/ Time Name of Medical Power of Machine Burrer Latrice Rachel Alfaro, and Dixon Lawler February 01, 2024 9:33pm Name of Medical Power of Machine Burrer Rachel Hedrick Ken March 13, 2024 10:29pm Living Will No March 13, 2024 10:29pm Power of Machine Burrer Yes March 13 10:29pm Advance Directive Response Recorded Date/ Time Name of Medical Power of Machine Burrer Latrice Rachel Alfaro, and Dixon Lawler February 01, 2024 9:33pm Name of Medical Power of Machine Burrer Rachel Hedrick Ken March 13, 2024 10:29pm Name of Medical Power of Machine Burrer DIXON ANTUNEZ March 24, 2024 10:30am Living Will Yes March 24, 2024 10 :30am Power of Machine Burrer Yes March 24, 2024 10:30am Discharge Instructions * Attachments The following attachments cannot be sent through Care Everywhere. * Palpitations ([place]) documented in this encounter History of Present Illness * Edmundo Marie MD - 11/21/2020 5:21 PM EST I was paged on the chest pain pager reading Lawson. Seems like she came into the ED with palpitations and has had some runs of atrial tachycardia where she suddenly jumps from 80s to 130s. She feels it. CTA negative for PE. TSH not in system as far as I can see. 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 Edmundo Marie MD documented in this encounter Assessments Diagnosis Palpitations- Primary Atrial tachycardia, paroxysmal (HCC) Paroxysmal supraventricular tachycardia Diagnosis Atrial tachycardia (HCC) Other specified cardiac dysrhythmias Reason for Referral Status Reason Specialty Diagnoses / Procedures Referre d By Contact Referred To Contact Open Cardiology Diagnoses Atrial tachycardia (HCC) Procedures Event Monitor Kayleen Prakash PA-C [address] [place] [address] Specialty Diagnoses / Procedures Referred By Contac t Referred To Contact Cardiology Diagnoses Coronary artery disease involving [place] coronary artery of [place] heart without angina pectoris Edema, unspecified type Procedures Transthoracic echocardiogram (TTE) complete with contrast, bubble, strain, and 3D PRN NC ECHO TTHRC R-T 2D W/WOM-MODE COMPL SPEC&COLR D NC TTE W OR WO FOL WCON,DOPPLER Kayleen Prakash PA-C [address] [place] [address] Referral ID Status Reason Start Date Expiration Date Visits Re quested Visits Authorized [id number] Closed 12/13/2023 03/11/2024 1 1 Specialty Diagnoses / Procedures Referred By Contac t Referred To Contact Diagnoses Coronary artery disease involving [place] coronary artery of [place] heart without angina pectoris Other chest pain Procedures Nuclear REGADENOSON stress test with myocardial perfusion Kayleen Prakash PA-C [address] [place] [address] Referral ID Status Reason Start Date Expiration Date V isits Requested Visits Authorized [id number] Incomplete 01/09/2023 07/08/2023 1 1 Specialty Diagnoses / Procedures Referred By Contac t Referred To Contact Nuclear Medicine Diagnoses Coronary artery disease involving [place] coronary artery of [place] heart without angina pectoris Other chest pain Procedures Nuclear REGADENOSON stress test with myocardial perfusion Kayleen Prakash PA-C 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 LAB WOR K Chief Complaint SKILLED NURSING LAB WOR K SKILLED NURSING LAB WORK Chief Complaint SKILLED NURSING LAB WOR K SKILLED NURSING LABWORK Chief Complaint SKILLED NURSING LAB WOR K SKILLED NURSING LABWORK SKILLED NURSING LABWORK Chief Complaint SKILLED NURSING LAB WOR K SKILLED NURSING LABWORK SKILLED NURSING LABWORK MOUSTAPHA, PUBIC FX Reason for Visit MOUSTAPHA (acute kidney in jury) Closed fracture of single pubic ramus of pelvis Fall Inability to walk COPD (chronic obstructive pulmonary disease) Chief Complaint SKILLED NURSING LAB WOR K SKILLED NURSING LABWORK SKILLED NURSING LABWORK MOUSTAPHA, PUBIC FX MOUSTAPHA, PUBIC FX MOUSTAPHA, PUBIC FX MOUSTAPHA, PUBIC FX MOUSTAPHA, PUBIC FX MOUSTAPHA, PUBIC FX Reason for Visit MOUSTAPHA (acute kidney in jury) Closed fracture of single pubic ramus of pelvis Fall Inability to walk COPD (chronic obstructive pulmonary disease) Chief Complaint SKILLED NURSING LAB WOR K SKILLED NURSING LABWORK SKILLED NURSING LABWORK MOUSTAPHA, PUBIC FX MOUSTAPHA, PUBIC FX MOUSTAPHA, PUBIC FX MOUSTAPHA, PUBIC FX MOUSTAPHA, PUBIC FX MOUSTAPHA, PUBIC FX MOUSTAPHA/ PUBIC FRACTURE Reason for Visit MOUSTAPHA (acute kidney in jury) Acute blood loss anemia Allergic rhinitis Alzheimer disease Debility Depression Gastric ulcer Hyperlipemia Hypokalemia Osteoarthritis Osteoporosis Overactive bladder Pelvis fracture, right Tremor Upper GI bleed HTN (hypertension) Chief Complaint MOUSTAPHA, PUBIC FX MOUSTAPHA, PUBIC FX MOUSTAPHA, PUBIC FX MOUSTAPHA, PUBIC FX MOUSTAPHA, PUBIC FX MOUSTAPHA, PUBIC FX MOUSTAPHA/ PUBIC FRACTURE Hospital FU gen illness Reason for Visit MOUSTAPHA (acute kidney in jury) Allergic rhinitis Alzheimer disease Debility Depression Hyperlipemia Hypokalemia Osteoarthritis Osteoporosis Overactive bladder Pelvis fracture, right Tremor HTN (hypertension) Acute blood loss anemia Gastric ulcer Upper GI bleed Anemia GI bleed Thrombocytopenia Chief Complaint MOUSTAPHA, PUBIC FX MOUSTAPHA, PUBIC FX MOUSTAPHA, PUBIC FX MOUSTAPHA, PUBIC FX MOUSTAPHA, PUBIC FX MOUSTAPHA, PUBIC FX MOUSTAPHA/ PUBIC FRACTURE Hospital FU gen illness MENTAL STATUS Reason for Visit MOUSTAPHA (acute kidney in jury) Allergic rhinitis Alzheimer disease Debility Depression Hyperlipemia Hypokalemia Osteoarthritis Osteoporosis Overactive bladder Pelvis fracture, right Tremor HTN (hypertension) Acute blood loss anemia Gastric ulcer Upper GI bleed Anemia GI bleed Thrombocytopenia Chief Complaint Admit Date 6 M FU January 27, 2025 7:5 2am Reason for Visit Admit Date Constipation January 27, 2025 7:5 2am Exocrine pancreatic insufficiency January 27, 2025 7:52am Additional Source Comments INFORMATION SOURCE (unrecogn ized section and content) DATE CREATED AUTHOR 04/09/2019 [employer] DATE CREATED AUTHOR AUTHOR'S ORGANIZ ATION 09/15/2021 [facility] DATE CREATED AUTHOR AUTHOR'S ORGANIZ ATION 07/24/2022 [employer] DATE CREATED AUTHOR AUTHOR'S ORGANIZ ATION 12/13/2022 [facility] ([place]) DATE CREATED AUTHOR AUTHOR'S ORGANIZ ATION 02/17/2025 [facility] DATE CREATED AUTHOR AUTHOR'S ORGANIZ ATION 07/29/2025 [facility] [employer] [facility] Reason for Visit (unrecogniz ed section and content) Reason Comments Palpitations Reason Comments Fall patient reports fall ing [...] Edema Specialty Diagnoses / Procedures Referred By [facility] Referred To Contact Cardiology Diagnoses Coronary artery disease involving [place] coronary artery of [place] heart without angina pectoris Edema, unspecified type Procedures Transthoracic echocardiogram (TTE) complete with contrast, bubble, strain, and 3D PRN NC ECHO TTHRC R-T 2D W/WOM-MODE COMPL SPEC&COLR D NC TTE W OR WO FOL WCON,DOPPLER Kayleen Prakash PA-C [address] [place] [address] Referral ID Status Reason Start Date Expiration Date Visits Re quested Visits Authorized [id number] Closed 12/13/2023 03/11/2024 1 1 Reason Comments Follow-up Reason Comments Memory Loss Reason Comments 3 Month Follow Up Coronary Artery Disease Reason Onset Date Comments Medication Problem 12/25/2022 Reason Comments Follow-up Reason Onset Date Comments Appointment Request 01/09/2023 Reason Onset Date Comments Approval for services 01/12/2023 Specialty Diagnoses / Procedures Referred By [facility] Referred To Contact Nuclear Medicine Diagnoses Coronary artery disease involving [place] coronary artery of [place] heart without angina pectoris Other chest pain Procedures Nuclear REGADENOSON stress test with myocardial perfusion Kayleen Prakash PA-C [address] [place] [address] Referral ID Status Reason Start Date Expiration Date Visits Re quested Visits Authorized [id number] Closed 01/12/2023 02/26/2023 1 1 Reason Comments Memory Loss Reason Onset Date Comments Patient Education 03/16/2025 Reason Onset Date Comments Patient Education 03/16/2025 Reason Comments Follow-up hypertension Ordered Prescriptions (unrec ognized section and content) Prescription Sig Dispensed Refills Start Date End Da te lidocaine 4 % external patch Place 1 patch onto the skin daily 30 patch 0 05/13/2022 06/12/2022 Care Teams (unrecognized sec tion and content) School Based Therapist Relationship Specialty Start Date End Date Candice Dotson APRN - SALES AND SERVICE ENGINEER [address] [place] [address] PCP - General Family Nurse Practitioner 12/31/20 School Based Therapist Relationship Specialty Start Date End Date Garfield Kidd DO [address] [facility] [place] [address] PCP - General 07/07/22 School Based Therapist Relationship Specialty Start Date End Date MartiGarfield aldridge DO [address] [place] [address] PCP - General 07/07/22 Team Status: Active Member Role Status Dates Dr. Joseph Roldan MD Family Provider Active No Primary Care Physician Primary Care Provider Active Team Status: Active Member Role Status Dates No Primary Care Physician Primary Care Provider Active Dr. Darcy SRINIVASAN MD Attending Provider Active Team Status: Inactive Member Role Status Dates No Primary Care Physician Primary Care Provider Active Dr. Darcy SRINIVASAN MD Attending Provider, Referring Provider Active Team Status: Inactive Member Role Status Dates No Primary Care Physician Primary Care Provider Active Dr. Darcy SRINIVASAN MD Attending Provider Active School Based Therapist Relationship Specialty Start Date End Date Marti GarfieldDO [address] [place] [phone] PCP - General 07/07/22 School Based Therapist Relationship Specialty Start Date End Date Marti Garfield [address] [place] [phone] PCP - General 07/07/22 School Based Therapist Relationship Specialty Start Date End Date MartiGarfield [place] [address] PCP - General 07/07/22 School Based Therapist Relationship Specialty Start Date End Date Marti Garfield [address] [place] [phone] PCP - General 07/07/22 School Based Therapist Relationship Specialty Start Date End Date Garfield Kidd DO [address] [place] [address] PCP - General 07/07/22 School Based Therapist Relationship Specialty Start Date End Date Garfield Kidd DO [address] [place] [phone] PCP - General 07/07/22 Team Status: Active Member Role Status Dates Dr. Joseph Roldan MD Family Provider Active Dr. Darcy Clifton MD Primary Care Provider Active Team Status: Active Member Role Status Dates Dr. Jelani Miranda MD Emergency Provider Active Dr. Darcy Clifton MD Primary Care Provider Active Dr. Amanda Jeter MD Admit Provider, Attending Provid er Active Team Status: Active Member Role Status Dates Dr. Jelani Miranda MD Emergency Provider Active Dr. Darcy Clifton MD Primary Care Provider Active Dr. Amanda Jeter MD Admit Provider, Other Provider A ctive Dr. Kristie Lau MD Attending Provider, Other Prov ider Active Team Status: Active Member Role Status Dates Dr. Darcy Clifton MD Primary Care Provider Active Dr. Jonathan Bell DO Attending Provider Active Team Status: Inactive Member Role Status Dates Dr. Jelani Miranda MD Emergency Provider Active Dr. Darcy Clifton MD Primary Care Provider Active Dr. Amanda Jeter MD Admit Provider, Other Provider A ctive Dr. Kristie Lau MD Attending Provider Active Team Status: Active Member Role Status Dates Dr. Darcy Clifton MD Primary Care Provider Active Dr. Jonathan Bell DO Attending Provider Active Dr. Kristie Lau MD Referring Provider Active Team Status: Inactive Member Role Status Dates Dr. Darcy Clifton MD Primary Care Provider Active Dr. Curtis Ye MD Admit Provider, Attending Provid er Active Team Status: Inactive Member Role Status Dates Dr. Darcy Clifton MD Primary Care Provider, Referring Provider Active Dr. Jonathan Bell DO Attending Provider Active Team Status: Inactive Member Role Status Dates Dr. Darcy Clifton MD Primary Care Provider Active Rg Schmid MD Emergency Provider Active School Based Therapist Relationship Specialty Start Date End Date Garfield KiddDO [address] [place] [address] (Work) PCP - General 07/07/22 Team Status: Inactive Member Role Status Dates Dr. Darcy Clifton MD Primary Care Provider Active Rg Schmid MD Attending Provider, Emergency Provid er Active Team Status: Inactive Member Role Status Dates Dr. Darcy Clifton MD Primary Care Provider Active Dr. Henok Friend DO Emergency Provider Active School Based Therapist Relationship Specialty Start Date End Date Edouard Chambers MD [address] [facility] [address] [place] [address] PCP - General Family Medicine 04/08/24 School Based Therapist Relationship Specialty Start Date End Date Edouard Chambers MD [address] [facility] [address] [place] [phone] PCP - General Family Medicine 04/08/24 School Based Therapist Relationship Specialty Start Date End Date MartiGarfield, [address] [place] [address] PCP - General 07/07/22 School Based Therapist Relationship Specialty Start Date End Date Garfield Kidd, [facility] [place] [address] (Work) PCP - General 07/07/22 School Based Therapist Relationship Specialty Start Date End Date Garfield Kidd [address] [phone] (Work) PCP - General 07/07/22 School Based Therapist Relationship Specialty Start Date End Date Garfield Kidd [address] [phone] PCP - General 07/07/22 School Based Therapist Relationship Specialty Start Date End Date MartiGarfield aldridge DO [address] [place] [address] PCP - General 07/07/22 School Based Therapist Relationship Specialty Start Date End Date Edouard Chambers MD [address] [place] [address] PCP - General Family Medicine 04/08/24 School Based Therapist Relationship Specialty Start Date End Date Edouard Chambers MD [address] [place] [address] PCP - General Family Medicine 04/08/24 School Based Therapist Relationship Specialty Start Date End Date Edouard Chambers MD [address] [place] [address] PCP - General Family Medicine 04/08/24 Team Status: Active Member Role Status Dates Dr. Edouard Chambers MD Primary Care Provider Active Team Status: Inactive Member Role Status Dates Dr. Edouard Chambers MD Primary Care Provider Active Start: January 27, 2025 End: January 27, 2025 Dr. Edouard Chambers MD Referring Provider Active Start: January 27, 2025 End: January 27, 2025 Dr. Jonathan Bell DO Attending Provider Active Start: January 27, 2025 End: January 27, 2025 Team Status: Inactive Member Role Status Dates Dr. Edouard Chambers MD Primary Care Provider Active Start: February 06, 2025 End: February 06, 2025 Dr. Jonathan Bell DO Attending Provider Active Start: February 06, 2025 End: February 06, 2025 Dr. Jonathan Bell DO Referring Provider Active Start: February 06, 2025 End: February 06, 2025 School Based Therapist Relationship Specialty Start Date End Date Edouard Chambers MD [address] [place] [address] PCP - General Family Medicine 04/08/24 School Based Therapist Relationship Specialty Start Date End Date Edouard Chambers MD [address] [place] [address] PCP - General Family Medicine 04/08/24 School Based Therapist Relationship Specialty Start Date End Date Edouard Chambers MD [address] [place] [phone] PCP - General Family Medicine 04/08/24 School Based Therapist Relationship Specialty Start Date End Date Edouard Chambers MD [address] [place] [address] PCP - General Family Medicine 04/08/24 School Based Therapist Relationship Specialty Start Date End Date Edouard Chambers MD [address] [place] [address] PCP - General Family Medicine 04/08/24 Care Team (unrecognized sect ion and content) Care Team Personnel Name: GARFIELD KIDD DO Position: P4 Physician - Primary Care Member Role: Primary Care Physician Address: Address: [address] [place] [address] Care Team Related Persons Name: DIXON ANTUNEZ Name: YVETTE ALFARO Address: [facility] Care Team Personnel Name: GARFIELD KIDD DO Position: P4 Physician - Primary Care Member Role: Primary Care Physician Address: Address: [address] [place] [address] Care Team Related Persons Name: DIXON ANTUNEZ Name: YVETTE ALFARO Address: [place] Goals (unrecognized section and content) Goals may be documented in a n alternate section FOR RECORDS PERTAINING TO PATIENTS WHO ARE [...] BE BASED ON THE PRIMARY CLINICAL RECORDS. LOC&ALL [facility]. provides no warranty or guarantee of the accuracy or completeness of information in this document.
--- NOTE | 2025-10-18 10:40 | RAD_ITS ---
PROCEDURE: ELBOW MIN 3 VIEWS 10/18/2025 REASON FOR EXAM: INJURY TECHNIQUE: Procedure Code: RADEL Modality: DX Procedure: ELBOW MIN 3 VIEWS Laterality: Left COMPARISON: None FINDINGS: There is no acute fracture or dislocation. Alignment is unremarkable. No hemarthrosis. RAD/Elbow min 3 Views IMPRESSION: No acute abnormality noted. Reading Location: [facility]
[2025-10-18 11:45] VITALS: BP 149/103; PULSE 69; RESP 20; O2SAT 96
[2025-10-18 13:00] VITALS: BP 191/86; PULSE 69; RESP 18; O2SAT 96
[2025-10-18 15:00] VITALS: BP 163/117; PULSE 68
[2025-10-18 15:38] VITALS: BP 163/117; PULSE 68; RESP 18; TEMP 35.9; O2SAT 96
--- NOTE | 2025-10-18 15:42 | ED.RN ---
Report given to the avenue via phone.
== END 2025-10-18 15:50 | disposition skilled nursing facility (03) ==
PROVIDERS: Emergency Provider Emergency Medicine; PCP Family Medicine; Visit Provider Emergency Medicine
DX: S30.0XXA Contusion of lower back and pelvis, initial encounter (principal); M48.56XA Collapsed vertebra, not elsewhere classified, lumbar region, initial encounter for fracture; J96.11 Chronic respiratory failure with hypoxia; G30.9 Alzheimer's disease, unspecified; F02.80 Dementia in other diseases classified elsewhere, unspecified severity, without behavioral disturbance, psychotic disturbance, mood disturbance, and anxiety; J44.9 Chronic obstructive pulmonary disease, unspecified; S50.12XA Contusion of left forearm, initial encounter; W01.0XXA Fall on same level from slipping, tripping and stumbling without subsequent striking against object, initial encounter; Y92.092 Bedroom in other non-institutional residence as the place of occurrence of the external cause; I10 Essential (primary) hypertension; Z79.82 Long term (current) use of aspirin; Z79.899 Other long term (current) drug therapy; Z87.891 Personal history of nicotine dependence
CPT/HCPCS: 70450; 71250; 73030; 73080; 74176; 99282; A4216